=== PATIENT | female | born 1960 | race Caucasian/White ===

== ENCOUNTER 2023-10-26 08:07 | Inpatient (IN) | payer OTHER, SELFPAY ==
[2023-10-26] VITALS (31 sets, daily range): BP systolic 98–148; BP diastolic 67–97; PULSE 96–140; RESP 18–35; TEMP 36.5–37.5; O2SAT 87–98; BMI 29.5
--- NOTE | ~2023-10-26 | NM_ITS ---
EXAMINATION: NM samuel stress w perfusion DATE: 10/27/2023 11:42 INDICATION: Elevated troponins. Prior coronary artery bypass grafting. TECHNIQUE: Rest images were obtained following intravenous administration of 8.8 mCi Tc99m tetrofosmi n (Myoview). The patient was infused intravenously with Lexiscan (Regadenoson). Then, 38.8 mCi Tc99m tetrofosmin (Myoview) was administered intravenously, and stress images were obtained in both supine and prone positions. Data was reconstructed into short axis and horizontal and vertical long axis SPE CT images. Gated SPECT images were also obtained. COMPARISON: None. FINDINGS: There is a severe nonreversible perfusion defect involving the apical, the apical septal, a pical anterior, apical lateral and apical inferior, mid anterior and mid posterior segments consisten t with infarct. No nonreversible ischemia. There is normal left ventricular chamber size and ejectio n fraction. There is paradoxical motion at the left apex. Left ventricular ejection fraction measures 65%. IMPRESSION: 1. Large severe nonreversible infarct involving the apical, each of the periapical and the mid anteri or and mid inferior segments. No reversible ischemia. 2. Left ventricular ejection fraction measuring 65%. Reviewed, dictated and finalized at location A. IMPRESSION: 1. Large severe nonreversible infarct involving the apical, each of the periapi mahgoany and the mid anterior and mid inferior segments. No reversible ischemia. 2. Left ventricular ejection fraction measuring 65%.
--- NOTE | ~2023-10-26 | XR_ITS ---
EXAMINATION: XR chest 1V portable DATE: 10/26/2023 09:23 INDICATION: Shortness of breath. COPD/asthma. TECHNIQUE: frontal view of the chest was obtained. COMPARISON: None FINDINGS: Airspace opacity in the left lower lung zone which could represent atelectasis or pneumonia. Remainde r of the lungs are clear. No pulmonary edema, pleural effusion or pneumothorax. Heart size is normal. IMPRESSION: 1. Focal airspace opacity in the left lower lung zone which could represent atelectasis or pneumonia. Reviewed, dictated and finalized at location A. IMPRESSION: 1. Focal airspace opacity in the left lower lung zone which could represent ate lectasis or pneumonia.
--- NOTE | 2023-10-26 08:12 | ECG_ITS ---
SEE SCANNED COPY FOR CONFIRMED REPORT MTDD
--- NOTE | 2023-10-26 08:17 | ED_ITS ---
HPI - SOB/Dyspnea General Chief Complaint: Shortness of Breath/Dyspnea Stated Complaint: SOB Time Seen by Provider: 10/26/23 08:16 History of Present Illness HPI Narrative: Patient is a 63-year-old female with history of asthma, COPD here with shortness of breath and cough. She states that 2 nights ago she began feeling a bit more short of breath and it significantly worsened yesterday and overnight last night. She is unable to walk around her home yesterday due to her significant shortness of breath. She notes that weather changes typically flare her COPD. She denies any prior hospitalizations or intubations for her COPD in the past. She is not currently on steroids. She did attempt some breathing treatments at home without improvement of symptoms. She has had some increase in sputum production, is clear in color. She does not use any home oxygen. She denies any fever, chills, sick contacts. She denies any chest pain, denies any cardiac history. No history of PE or DVT. No leg swelling, no recent travel, no recent long car rides, no recent surgeries. Related Data Home Medications Medication Instructions Recorded Confirmed albuterol sulfate 90 mcg/actuation 2 puff inhalation TID 10/26/23 10/26/23 aerosol inhaler fluticasone propionate 115 2 puff inhalation BID 10/26/23 10/26/23 mcg-salmeterol 21 mcg/actuation HFA inhaler (Advair HFA) umeclidinium 62.5 mcg/actuation 1 inh inhalation DAILY 10/26/23 10/26/23 blister powder for inhalation (Incruse Ellipta) Allergies Allergy/AdvReac Type Severity Reaction Status Date / Time codeine AdvReac Itching Verified 10/26/23 08:15 Review of Systems Review of Systems: All systems reviewed & are unremarkable except as noted in HPI and below PMFSH Family History Family History Mother Cerebrovascular accident Sibling FH: CABG (coronary artery bypass surgery) Father Stented coronary artery Social History Social History Smoking packs per day: 1 Smoking cigarettes per day: 20.0 Years smoked: 45 Smoking pack-years: 45.00 Smoking status: Current every day smoker Tobacco type: cigarettes Alcohol intake: current Drinks per week: 3 Substance use: never Do You Feel Safe in your Home?: Yes Lack of Transportation: No Lack of Food: Never True Current Housing: I Have Housing Concerned About Future Housing: No Difficulty Paying Gas/Electric Bills: No Difficulty Paying for Meds: No Currently Unemployed: No Education: High School Diploma/GED Difficulty w/ Childcare or Family Care: No Spiritual care concerns: No Exam Narrative: GENERAL: Well-appearing, well-nourished HEAD: Normocephalic, atraumatic. EYES: PERRLA and EOMI. ENT: Nares clear. Mucous membranes moist. NECK: Supple. CHEST: decreased air movement bilaterally with faint expiratory wheeze appreciated. Tachypnea, mild respiratory distress. On 2 L nasal cannula. HEART: Regular rate and rhythm. Normal peripheral pulses. ABDOMEN: Soft, nontender, nondistended. EXTREMITIES: Normal range of motion. No edema. No calf tenderness. SKIN: Warm, dry, no rash. NEURO: No focal deficits. Alert and oriented x3. PSYCH: Normal mood and affect. Course Course Emergency Course: Chart review performed. Patient here with shortness of breath. History of COPD, asthma. Was initially 89% on RA, started on 2L NC. No prior visits in our system. Reportedly got solumedrol and a duoneb treatment en route by EMS. Patient seen evaluated, mild respiratory distress with new oxygen requirement. Suspect COPD exacerbation, typical this time of year with changes of seasons. Will do chest x-ray, lab work, cardiac workup in addition to breathing treatments and steroids. Discussed with patient that we will do a ambulatory trial pulse ox after treatment and workup and should she continue to require oxygen she will likely require hospitalization. Patient agreeable to workup and plan. Lab work and imaging reviewed, hemoglobin 18.4, suspect component of hemoconcentration from insensate losses due to tachypnea, electrolytes grossly normal, troponin elevated at 0.4, no prior for comparison, BNP 368. No prior cardiac history, no active chest pain. Chest x-ray shows focal airspace opacity in the left lower lung which could represent atelectasis or pneumonia. Will start on antibiotics. PT, PTT, D-dimer ordered. Aspirin ordered. Will reevaluate after breathing treatments. Patient feels much better after breathing treatments. Updated on her elevated troponin in the remainder of her results. Discussed plan for admission. Patient agreeable. D-dimer negative. Troponin up trending. Patient continues to advise that she has never experienced any chest pain. We will start on heparin. Discussed c ase with Veronika Kim from [facility], other team will be on consult. Spoke with hospitalist who accepts patient for admission. Vital Signs Vital signs: Vital Signs Temperature 97.9 F 10/26/23 08:08 Pulse Rate 139 H 10/26/23 08:08 Respiratory Rate 25 H 10/26/23 08:08 Blood Pressure 135/84 10/26/23 08:08 Pulse Oximetry 89 L 10/26/23 08:08 Oxygen Delivery Room Air 10/26/23 08:08 Temperature 97.6 F 10/27/23 04:34 Pulse Rate 77 10/27/23 06:00 Respiratory Rate 20 10/27/23 04:34 Blood Pressure 122/74 10/27/23 04:34 Pulse Oximetry 92 10/27/23 04:34 Oxygen Delivery Nasal Cannula 10/27/23 04:00 Oxygen Flow Rate 2 10/27/23 04:00 Fraction of Inspired Oxygen 28 10/27/23 01:48 MDM - SOB/Dyspnea Lab Data 10/27/23 03:51 10/27/23 04:02 Labs: Lab Results 10/26/23 10/26/23 10/26/23 Range/Units 08:20 08:21 08:21 WBC 6.9 (4.5-10.0) K/mm3 RBC 5.62 H (4.2-5.4) M/mm3 Hgb 18.4 H (12.0-15.0) g/dL Hct 57.9 H (37.0-47.0) % MCV 103.0 H (80-100) fl MCH 32.7 (26-34) pg MCHC 31.8 L (32-36) g/dl RDW 15.9 H (11.5-14.5) % Plt Count 214 (150-375) k/mm3 MPV 9.6 (7.4-10.4) fl Immature Gran % (Auto) 0.3 (0-0.5) % Neut % (Auto) 67.3 (45.5-73.1) % Lymph % (Auto) 18.8 (18.3-44.2) % Hendricks % (Auto) 7.1 (2.6-8.5) % Eos % (Auto) 5.5 H (0-4.4) % Baso % (Auto) 1.0 (0.2-1.2) % Lymph # (Auto) 1.30 (0.9-3.2) K/mm3 Hendricks # (Auto) 0.5 (0.1-0.6) K/mm3 Eos # (Auto) 0.4 H (0-0.3) K/mm3 Baso # (Auto) 0.1 (0.0-0.1) K/mm3 Abs Immat Gran (auto) 0.02 (0.00-0.031) K/mm3 Absolute Neuts (auto) 4.7 (1.3-6.7) K/mm3 Absolute Nucleated RBC 0.000 (0.0-0.012) K/mm3 Nucleated RBC % 0.0 (0.0-0.2) % PT 11.9 (11.1-14.7) Seconds INR 0.8 APTT 27.5 (22.3-36.8) Seconds D-Dimer 0.38 (<0.48) ug/mL Sodium Cancelled 138 Potassium Cancelled Chloride Carbon Dioxide Anion Gap BUN Creatinine Estim Creat Clear Calc Estimated GFR Glucose Lactic Acid (0.7-2.0) mmol/L Calcium Total Bilirubin AST ALT Alkaline Phosphatase Troponin I (0.000-0.034) ng/mL NT-Pro-B Natriuret Pep (19.9-100) pg/mL Total Protein Albumin Influenza A (RT-PCR) (Negative) Influenza B (RT-PCR) (Negative) RSV (RT-PCR) (Negative) SARS-CoV-2 RNA (RT-PCR) (Negative) 10/26/23 10/26/23 10/26/23 Range/Units 08:21 08:21 08:21 WBC (4.5-10.0) K/mm3 RBC (4.2-5.4) M/mm3 Hgb (12.0-15.0) g/dL Hct (37.0-47.0) % MCV (80-100) fl MCH (26-34) pg MCHC (32-36) g/dl RDW (11.5-14.5) % Plt Count (150-375) k/mm3 MPV (7.4-10.4) fl Immature Gran % (Auto) (0-0.5) % Neut % (Auto) (45.5-73.1) % Lymph % (Auto) (18.3-44.2) % Hendricks % (Auto) (2.6-8.5) % Eos % (Auto) (0-4.4) % Baso % (Auto) (0.2-1.2) % Lymph # (Auto) (0.9-3.2) K/mm3 Hendricks # (Auto) (0.1-0.6) K/mm3 Eos # (Auto) (0-0.3) K/mm3 Baso # (Auto) (0.0-0.1) K/mm3 Abs Immat Gran (auto) (0.00-0.031) K/mm3 Absolute Neuts (auto) (1.3-6.7) K/mm3 Absolute Nucleated RBC (0.0-0.012) K/mm3 Nucleated RBC % (0.0-0.2) % PT (11.1-14.7) Seconds INR APTT (22.3-36.8) Seconds D-Dimer (<0.48) ug/mL Sodium Potassium 3.4 Chloride Cancelled 104 Carbon Dioxide Cancelled 26 Anion Gap Cancelled BUN Creatinine Estim Creat Clear Calc Estimated GFR Glucose Lactic Acid (0.7-2.0) mmol/L Calcium Total Bilirubin AST ALT Alkaline Phosphatase Troponin I (0.000-0.034) ng/mL NT-Pro-B Natriuret Pep (19.9-100) pg/mL Total Protein Albumin Influenza A (RT-PCR) (Negative) Influenza B (RT-PCR) (Negative) RSV (RT-PCR) (Negative) SARS-CoV-2 RNA (RT-PCR) (Negative) 10/26/23 10/26/23 10/26/23 Range/Units 08:21 08:21 08:21 WBC (4.5-10.0) K/mm3 RBC (4.2-5.4) M/mm3 Hgb (12.0-15.0) g/dL Hct (37.0-47.0) % MCV (80-100) fl MCH (26-34) pg MCHC (32-36) g/dl RDW (11.5-14.5) % Plt Count (150-375) k/mm3 MPV (7.4-10.4) fl Immature Gran % (Auto) (0-0.5) % Neut % (Auto) (45.5-73.1) % Lymph % (Auto) (18.3-44.2) % Hendricks % (Auto) (2.6-8.5) % Eos % (Auto) (0-4.4) % Baso % (Auto) (0.2-1.2) % Lymph # (Auto) (0.9-3.2) K/mm3 Hendricks # (Auto) (0.1-0.6) K/mm3 Eos # (Auto) (0-0.3) K/mm3 Baso # (Auto) (0.0-0.1) K/mm3 Abs Immat Gran (auto) (0.00-0.031) K/mm3 Absolute Neuts (auto) (1.3-6.7) K/mm3 Absolute Nucleated RBC (0.0-0.012) K/mm3 Nucleated RBC % (0.0-0.2) % PT (11.1-14.7) Seconds INR APTT (22.3-36.8) Seconds D-Dimer (<0.48) ug/mL Sodium Potassium Chloride Carbon Dioxide Anion Gap 8 BUN Cancelled 11 Creatinine Cancelled 0.70 Estim Creat Clear Calc Cancelled Estimated GFR Glucose Lactic Acid (0.7-2.0) mmol/L Calcium Total Bilirubin AST ALT Alkaline Phosphatase Troponin I (0.000-0.034) ng/mL NT-Pro-B Natriuret Pep (19.9-100) pg/mL Total Protein Albumin Influenza A (RT-PCR) (Negative) Influenza B (RT-PCR) (Negative) RSV (RT-PCR) (Negative) SARS-CoV-2 RNA (RT-PCR) (Negative) 10/26/23 10/26/23 10/26/23 Range/Units 08:21 08:21 08:21 WBC (4.5-10.0) K/mm3 RBC (4.2-5.4) M/mm3 Hgb (12.0-15.0) g/dL Hct (37.0-47.0) % MCV (80-100) fl MCH (26-34) pg MCHC (32-36) g/dl RDW (11.5-14.5) % Plt Count (150-375) k/mm3 MPV (7.4-10.4) fl Immature Gran % (Auto) (0-0.5) % Neut % (Auto) (45.5-73.1) % Lymph % (Auto) (18.3-44.2) % Hendricks % (Auto) (2.6-8.5) % Eos % (Auto) (0-4.4) % Baso % (Auto) (0.2-1.2) % Lymph # (Auto) (0.9-3.2) K/mm3 Hendricks # (Auto) (0.1-0.6) K/mm3 Eos # (Auto) (0-0.3) K/mm3 Baso # (Auto) (0.0-0.1) K/mm3 Abs Immat Gran (auto) (0.00-0.031) K/mm3 Absolute Neuts (auto) (1.3-6.7) K/mm3 Absolute Nucleated RBC (0.0-0.012) K/mm3 Nucleated RBC % (0.0-0.2) % PT (11.1-14.7) Seconds INR APTT (22.3-36.8) Seconds D-Dimer (<0.48) ug/mL Sodium Potassium Chloride Carbon Dioxide Anion Gap BUN Creatinine Estim Creat Clear Calc 75 Estimated GFR Cancelled > 60 Glucose Cancelled 145 H Lactic Acid (0.7-2.0) mmol/L Calcium Cancelled Total Bilirubin AST ALT Alkaline Phosphatase Troponin I (0.000-0.034) ng/mL NT-Pro-B Natriuret Pep (19.9-100) pg/mL Total Protein Albumin Influenza A (RT-PCR) (Negative) Influenza B (RT-PCR) (Negative) RSV (RT-PCR) (Negative) SARS-CoV-2 RNA (RT-PCR) (Negative) 10/26/23 10/26/23 10/26/23 Range/Units 08:21 08:21 08:21 WBC (4.5-10.0) K/mm3 RBC (4.2-5.4) M/mm3 Hgb (12.0-15.0) g/dL Hct (37.0-47.0) % MCV (80-100) fl MCH (26-34) pg MCHC (32-36) g/dl RDW (11.5-14.5) % Plt Count (150-375) k/mm3 MPV (7.4-10.4) fl Immature Gran % (Auto) (0-0.5) % Neut % (Auto) (45.5-73.1) % Lymph % (Auto) (18.3-44.2) % Hendricks % (Auto) (2.6-8.5) % Eos % (Auto) (0-4.4) % Baso % (Auto) (0.2-1.2) % Lymph # (Auto) (0.9-3.2) K/mm3 Hendricks # (Auto) (0.1-0.6) K/mm3 Eos # (Auto) (0-0.3) K/mm3 Baso # (Auto) (0.0-0.1) K/mm3 Abs Immat Gran (auto) (0.00-0.031) K/mm3 Absolute Neuts (auto) (1.3-6.7) K/mm3 Absolute Nucleated RBC (0.0-0.012) K/mm3 Nucleated RBC % (0.0-0.2) % PT (11.1-14.7) Seconds INR APTT (22.3-36.8) Seconds D-Dimer (<0.48) ug/mL Sodium Potassium Chloride Carbon Dioxide Anion Gap BUN Creatinine Estim Creat Clear Calc Estimated GFR Glucose Lactic Acid (0.7-2.0) mmol/L Calcium 9.8 Total Bilirubin Cancelled 1.1 AST Cancelled 23 ALT Cancelled Alkaline Phosphatase Troponin I (0.000-0.034) ng/mL NT-Pro-B Natriuret Pep (19.9-100) pg/mL Total Protein Albumin Influenza A (RT-PCR) (Negative) Influenza B (RT-PCR) (Negative) RSV (RT-PCR) (Negative) SARS-CoV-2 RNA (RT-PCR) (Negative) 10/26/23 10/26/23 10/26/23 Range/Units 08:21 08:21 08:21 WBC (4.5-10.0) K/mm3 RBC (4.2-5.4) M/mm3 Hgb (12.0-15.0) g/dL Hct (37.0-47.0) % MCV (80-100) fl MCH (26-34) pg MCHC (32-36) g/dl RDW (11.5-14.5) % Plt Count (150-375) k/mm3 MPV (7.4-10.4) fl Immature Gran % (Auto) (0-0.5) % Neut % (Auto) (45.5-73.1) % Lymph % (Auto) (18.3-44.2) % Hendricks % (Auto) (2.6-8.5) % Eos % (Auto) (0-4.4) % Baso % (Auto) (0.2-1.2) % Lymph # (Auto) (0.9-3.2) K/mm3 Hendricks # (Auto) (0.1-0.6) K/mm3 Eos # (Auto) (0-0.3) K/mm3 Baso # (Auto) (0.0-0.1) K/mm3 Abs Immat Gran (auto) (0.00-0.031) K/mm3 Absolute Neuts (auto) (1.3-6.7) K/mm3 Absolute Nucleated RBC (0.0-0.012) K/mm3 Nucleated RBC % (0.0-0.2) % PT (11.1-14.7) Seconds INR APTT (22.3-36.8) Seconds D-Dimer (<0.48) ug/mL Sodium Potassium Chloride Carbon Dioxide Anion Gap BUN Creatinine Estim Creat Clear Calc Estimated GFR Glucose Lactic Acid (0.7-2.0) mmol/L Calcium Total Bilirubin AST ALT 14 Alkaline Phosphatase Cancelled 81 Troponin I 0.400 H* (0.000-0.034) ng/mL NT-Pro-B Natriuret Pep 368 H (19.9-100) pg/mL Total Protein Cancelled 7.0 Albumin Cancelled Influenza A (RT-PCR) (Negative) Influenza B (RT-PCR) (Negative) RSV (RT-PCR) (Negative) SARS-CoV-2 RNA (RT-PCR) (Negative) 10/26/23 10/26/2324 Range/Units 08:21 10:43 11:11 WBC (4.5-10.0) K/mm3 RBC (4.2-5.4) M/mm3 Hgb (12.0-15.0) g/dL Hct (37.0-47.0) % MCV (80-100) fl MCH (26-34) pg MCHC (32-36) g/dl RDW (11.5-14.5) % Plt Count (150-375) k/mm3 MPV (7.4-10.4) fl Immature Gran % (Auto) (0-0.5) % Neut % (Auto) (45.5-73.1) % Lymph % (Auto) (18.3-44.2) % Hendricks % (Auto) (2.6-8.5) % Eos % (Auto) (0-4.4) % Baso % (Auto) (0.2-1.2) % Lymph # (Auto) (0.9-3.2) K/mm3 Hendricks # (Auto) (0.1-0.6) K/mm3 Eos # (Auto) (0-0.3) K/mm3 Baso # (Auto) (0.0-0.1) K/mm3 Abs Immat Gran (auto) (0.00-0.031) K/mm3 Absolute Neuts (auto) (1.3-6.7) K/mm3 Absolute Nucleated RBC (0.0-0.012) K/mm3 Nucleated RBC % (0.0-0.2) % PT (11.1-14.7) Seconds INR APTT (22.3-36.8) Seconds D-Dimer (<0.48) ug/mL Sodium Potassium Chloride Carbon Dioxide Anion Gap BUN Creatinine Estim Creat Clear Calc Estimated GFR Glucose Lactic Acid 1.3 (0.7-2.0) mmol/L Calcium Total Bilirubin AST ALT Alkaline Phosphatase Troponin I 1.480 H* D (0.000-0.034) ng/mL NT-Pro-B Natriuret Pep (19.9-100) pg/mL Total Protein Albumin 4.7 Influenza A (RT-PCR) Negative (Negative) Influenza B (RT-PCR) Negative (Negative) RSV (RT-PCR) Negative (Negative) SARS-CoV-2 RNA (RT-PCR) Negative (Negative) Imaging Data Radiologist's impression: ITS Impressions Chest X-Ray 10/26/23 09:32 IMPRESSION: 1. Focal airspace opacity in the left lower lung zone which could represent atelectasis or pneumonia. ECG Data EKG #1: Attestation: I personally reviewed and interpreted this ECG as follows: ECG completion date: 10/26/23 ECG completion time: 08:13 Interpretation: Rate is 129 Rhythm is sinus tachycardia QRS is 80 QTc is 383 Final Interpretation: sinus tachycardia, no ST segment elevations or depressions that meet STEMI activation criteria. No prior for comparison. Critical Care Time Critical Care Time Critical Care Time: Yes Total Critical Care Time: 30 Discharge Plan Discharge Clinical Impression: Community acquired pneumonia, Acute exacerbation of chronic obstructive pulmonary disease, Elevated troponin, Non-ST elevation OR (NSTEMI), Acute hypoxic respiratory failure Patient Disposition: Still a Patient Condition: Stable
[2023-10-26] MEDS: IPRATROPIUM BR 0.02% INH SOLN 0.5 MG/2.5 ML VIAL 1.5 MG INHALATION (08:39)
[2023-10-26 08:40] LABS: Basophils Absolute Auto 0.1 K/mm3 (0.0-0.1); Eosinophils Absolute Auto 0.4 K/mm3 (0-0.3); Eosinophils Percent Auto 5.5 % (0-4.4); Hematocrit 57.9 % (37.0-47.0); Hemoglobin 18.4 g/dL (12.0-15.0); Immature Granulocyte Absolute 0.02 K/mm3 (0.00-0.031); Immature Granulocyte Percent A 0.3 % (0-0.5); Lymphocytes Percent Auto 18.8 % (18.3-44.2); Mean Corpuscular HGB Conc 31.8 g/dl (32-36); Mean Corpuscular Hemoglobin 32.7 pg (26-34); Mean Platelet Volume 9.6 fl (7.4-10.4); Monocytes Absolute Auto 0.5 K/mm3 (0.1-0.6); Monocytes Percent Auto 7.1 % (2.6-8.5); Neutrophils Absolute Auto 4.7 K/mm3 (1.3-6.7); Neutrophils Percent Auto 67.3 % (45.5-73.1); Platelet Count Result 214 k/mm3 (150-375); Red Blood Count 5.62 M/mm3 (4.2-5.4); Red Cell Distribution Width 15.9 % (11.5-14.5); White Blood Count 6.9 K/mm3 (4.5-10.0)
[2023-10-26] MEDS: ALBUTEROL SULFATE NEB 2.5 MG/3 ML INH 15 MG INHALATION (08:40)
[2023-10-26 08:51] LABS: Alanine Aminotransferase 14 U/L (6-35); Albumin Level 4.7 g/dL (3.5-5.1); Alkaline Phosphatase 81 U/L (38-126); Anion Gap 8 mmol/L (4-12); Aspartate Amino Transferase 23 U/L (14-36); Bilirubin,Total 1.1 mg/dL (0.2-1.3); Blood Urea Nitrogen 11 mg/dL (7-17); Calcium 9.8 mg/dL (8.4-10.2); Carbon Dioxide 26 mmol/L (22-30); Chloride 104 mmol/L (98-107); Estimated CRCL calculation 75 ml/min; Estimated Glomerular Filt Rate > 60; Glucose 145 mg/dL (65-110); Potassium 3.4 mmol/L (3.4-5.0); Sodium 138 mmol/L (137-145)
[2023-10-26 09:07] LABS: NT Pro B Type Natriuretic Pept 368 pg/mL (19.9-100)
[2023-10-26 09:12] LABS: Influenza A QL RT-PCR Negative (Negative); Influenza B QL RT-PCR Negative (Negative); RSV RNA, RT-PCR Negative (Negative); SARS-CoV-2 RNA PCR Negative (Negative)
[2023-10-26] MEDS: ASPIRIN 81 MG CHEWABLE TABLET 324 MG PO (09:48)
[2023-10-26 10:40] LABS: D Dimer 0.38 ug/mL (<0.48)
[2023-10-26] MEDS: cefTRIAXone 2 GM/NS 100 ML 2 GM/100 ML BAG IVPB (10:49)
[2023-10-26 11:01] LABS: Lactic Acid Reflex 1.3 mmol/L (0.7-2.0)
[2023-10-26 11:04] LABS: INR 0.8; Partial Thromboplastin Time 27.5 Seconds (22.3-36.8); Prothrombin Time 11.9 Seconds (11.1-14.7)
[2023-10-26] MEDS: SODIUM CHLORIDE 0.9% IV 1,000 ML 999 ML IV CONT (11:20)
[2023-10-26] MEDS: DOXYCYCLINE 100 MG/NS 100 ML 100 MG/100 ML BAG IVPB ×2 (11:20→21:15)
--- NOTE | 2023-10-26 11:30 | ECG_ITS ---
SEE SCANNED COPY FOR CONFIRMED REPORT MTDD
[2023-10-26] MEDS: HEPARIN SOD/D5W 100 UNITS/ML 25,000 UNITS/250 ML BAG 8 UNITS IV CONT (12:39)
[2023-10-26] MEDS: HEPARIN SODIUM 5,000 UNITS/ML VIAL 4000 UNITS IV PUSH ×2 (12:41→21:14)
[2023-10-26] MEDS: LORazepam INJ (*CRX) 2 MG/ML VIAL 0.5 MG IV PUSH (13:19)
--- NOTE | 2023-10-26 13:36 | ADMGEN ---
This patient, Minnie Anguiano, was admitted to IMU Room 212-01. Patient/family oriented to hospital policies and general routines including ID bracelet, bed and alarms, visiting hours, pain management, procedures, bathroom and other care routines, personal items, smoking policy, room service/diet, and visiting hours. Information on how to activate the Rapid Response Team has been discussed. Patient/Family are encouraged to report perceived risks to care and to ask questions if they do not understand what they are told or what they should do.
--- NOTE | 2023-10-26 14:37 | P.HP_ITS ---
H&P: HPI History of Present Illness Date/Time: 10/26/23 14:37 Chief Complaint: SOB Narrative: Patient is a 63-year-old female with PMH of asthma and COPD admitted for shortness of breath x2-3 days. She was unable to walk around her home yesterday due to her significant shortness of breath and tried her nebulizer treatments at home with little improvement. She has had some increase in sputum production, is clear in color. She does not use any home oxygen at baseline. She denies any fever, chills, or other viral symptoms. She denies any chest pain, denies any cardiac or stroke history. No history of PE or DVT. She denies any other medical history, denies history of DM2. She does not take any medications at home other than her inhalers. She is not currently established with a counter intelligence agent. On exam, she is feeling much more comfortable after receiving steroids and oxygen therapy. She is currently on 2 L NC. Cardiology has been consulted regarding her elevated troponins, although suspect there could be an aspect of ischemic demand. ABG to be drawn. Respiratory panel negative, labs otherwise essentially normal. Will continue IV AB for PNA, IV steroids and duonebs for COPD exacerbation. Review of Systems Review of Systems: All systems reviewed & are unremarkable except as noted in HPI and below PMFSH Family History Family History Mother Cerebrovascular accident Sibling FH: CABG (coronary artery bypass surgery) Father Stented coronary artery Social History Social History Smoking packs per day: 1 Smoking cigarettes per day: 20.0 Years smoked: 45 Smoking pack-years: 45.00 Smoking status: Current every day smoker Tobacco type: cigarettes Alcohol intake: current Drinks per week: 3 Substance use: never Do You Feel Safe in your Home?: Yes Lack of Transportation: No Lack of Food: Never True Current Housing: I Have Housing Concerned About Future Housing: No Difficulty Paying Gas/Electric Bills: No Difficulty Paying for Meds: No Currently Unemployed: No Education: High School Diploma/GED Difficulty w/ Childcare or Family Care: No Spiritual care concerns: No Meds Home Medications and Allergies Home Medications Medication Instructions Recorded Confirmed Type albuterol sulfate 90 mcg/actuation 2 puff inhalation TID 10/26/23 10/26/23 History aerosol inhaler fluticasone propionate 115 2 puff inhalation BID 10/26/23 10/26/23 History mcg-salmeterol 21 mcg/actuation HFA inhaler (Advair HFA) umeclidinium 62.5 mcg/actuation 1 inh inhalation DAILY 10/26/23 10/26/23 History blister powder for inhalation (Incruse Ellipta) Allergies Allergy/AdvReac Type Severity Reaction Status Date / Time codeine AdvReac Itching Verified 10/26/23 08:15 Vital Signs Vital Signs - 24 hr 10/26/23 08:08 10/26/23 08:11 10/26/23 08:12 Temperature 97.9 F Pulse Rate 139 H Respiratory Rate 25 H Blood Pressure 135/84 Pulse Oximetry 89 L 91 95 Oxygen Delivery Room Air Nasal Cannula Nasal Cannula Oxygen Flow Rate 2 2 10/26/23 08:44 10/26/23 09:03 10/26/23 09:21 Temperature Pulse Rate 130 H 119 H 131 H Respiratory Rate 22 H 21 H 20 Blood Pressure 125/97 H 108/81 Pulse Oximetry 98 98 Oxygen Delivery Oxygen Flow Rate 10/26/23 09:31 10/26/23 10:15 10/26/23 10:15 Temperature Pulse Rate 132 H 138 H 129 H Respiratory Rate 29 H 28 H 21 H Blood Pressure 108/72 Pulse Oximetry 97 97 Oxygen Delivery Oxygen Flow Rate 10/26/23 10:30 10/26/23 12:45 10/26/23 11:31 Temperature Pulse Rate 137 H 107 H 130 H Respiratory Rate 21 H 35 H Blood Pressure 101/70 98/67 L Pulse Oximetry 93 92 Oxygen Delivery Oxygen Flow Rate 10/26/23 12:01 10/26/23 12:31 10/26/23 13:01 Temperature Pulse Rate 138 H 134 H 135 H Respiratory Rate 20 25 H 24 H Blood Pressure 105/75 110/83 116/80 Pulse Oximetry 93 95 95 Oxygen Delivery Oxygen Flow Rate 10/26/23 14:00 10/26/23 13:30 Temperature 97.9 F Pulse Rate 102 H 109 H Respiratory Rate 18 Blood Pressure 136/82 Pulse Oximetry 95 Oxygen Delivery Oxygen Flow Rate Exam Narrative: GENERAL: Well-appearing, well-nourished, in no acute distress HEAD: Normocephalic, atraumatic. EYES: PERRLA and EOMI. ENT: Mucous membranes moist. NECK: Supple. CHEST: Decreased air movement bilaterally. HEART: Regular rhythm, tachycardic. Normal peripheral pulses. ABDOMEN: Soft, nontender, nondistended. EXTREMITIES: Normal range of motion. No edema. No calf tenderness. SKIN: Warm, dry, no rash. NEURO: No focal deficits. Alert and oriented x3. PSYCH: Normal mood and affect. H&P: Results Labs Labs: Short CBC 10/26/23 Range/Units 08:21 WBC 6.9 (4.5-10.0) K/mm3 Hgb 18.4 H (12.0-15.0) g/dL Hct 57.9 H (37.0-47.0) % Plt Count 214 (150-375) k/mm3 BMP 10/26/23 10/26/23 10/26/23 08:21 08:21 08:21 Sodium Cancelled 138 Potassium Cancelled 3.4 Chloride Cancelled Carbon Dioxide BUN Creatinine Glucose Calcium 10/26/23 10/26/23 10/26/23 08:21 08:21 08:21 Sodium Potassium Chloride 104 Carbon Dioxide Cancelled 26 BUN Cancelled 11 Creatinine Cancelled Glucose Calcium 10/26/23 10/26/23 10/26/23 08:21 08:21 08:21 Sodium Potassium Chloride Carbon Dioxide BUN Creatinine 0.70 Glucose Cancelled 145 H Calcium Cancelled 9.8 Cardiac Enzymes 10/26/23 10/26/23 Range/Units 08:21 11:11 Troponin I 0.400 H* 1.480 H* D (0.000-0.034) ng/mL Liver Function 10/26/23 10/26/23 10/26/23 Range/Units 08:21 08:21 08:21 Total Bilirubin Cancelled 1.1 AST Cancelled 23 ALT Cancelled Alkaline Phosphatase Albumin 10/26/23 10/26/23 10/26/23 Range/Units 08:21 08:21 08:21 Total Bilirubin AST ALT 14 Alkaline Phosphatase Cancelled 81 Albumin Cancelled 4.7 Assessment and Plan Assessment and plan (1) Community acquired pneumonia: Qualifiers: Laterality: left Lung location: lower lobe of lung Qualified Code(s): J18.9 - Pneumonia, unspecified organism Code(s): J18.9 - Pneumonia, unspecified organism Status: Acute Assessment and Plan: * CXR showed focal airspace opacity in the left lower lung zone which could represent atelectasis or pneumonia. * given COPD dx, will treat with Rocephin and doxycycline as her QTC is elongated * supplemental O2 - work to wean * Duonebs * IV Solumedrol Q6 (2) Acute exacerbation of chronic obstructive pulmonary disease: Code(s): J44.1 - Chronic obstructive pulmonary disease with (acute) exacerbation Status: Acute Assessment and Plan: * continue at home inhalers * supplemental O2 - work to wean * Duonebs * IV Solumedrol Q6 * ABG ordered (3) Elevated troponin: Code(s): R79.89 - Other specified abnormal findings of blood chemistry Status: Acute Assessment and Plan: * Trops 0.4 -> 1.48 -> 1.86 * Cardiology consulted * could be secondary to ischemic demand * continue heparin until further evaluation * PT/PTT/INR and D-dimer WNL Quality VTE Prophylaxis VTE prophylaxis: pharmacologic ordered
[2023-10-26 15:23] LABS: Alveolar/Arterial O2 Gradient 93.4 mmHg; Base Excess ABG -1.4 mEq/l (+/-2.0); Device NASAL CANNULA; Fractional Inspired Oxygen 28 %; HCO3 ABG 22.4 mEq/l (22.0-26.0); Modified Allen's Test Pass; Oxygen Content ABG 24.3 %vol (16.0-22.0); Oxygen Saturation ABG 93.1 % (95.0-100.0); Oxyhemoglobin 91.9 % THb (90.0-100.0); PCO2 ABG 35.5 mmHg (35.0-45.0); PO2 ABG 64.4 mmHg (80.0-100.0); Site Drawn RIGHT RADIAL; Total Hemoglobin 18.9 g/dL (12.0-18.0); pH ABG 7.417 (7.350-7.450)
--- NOTE | 2023-10-26 15:38 | P.CONCA_ITS ---
Assessment and Plan Assessment and plan (1) Elevated troponin: Code(s): R79.89 - Other specified abnormal findings of blood chemistry Status: Acute Plan 63-year-old lady with obvious chronic COPD both by history and by physical exam. She had a COPD exacerbation this morning that was treated in the emergency room. Because of her age and risk factors troponin levels were sampled and there has been a moderate rise as detailed above. Her electrocardiogram shows sinus tachycardia low QRS voltage compatible with her COPD. There is some lateral Q-waves noted in 1 aVL but no significant elevation or current of injury. At this point I would recommend a Lexiscan nuclear stress test for screening for ischemic heart disease. The test was explained to the patient in detail. In addition to heparin I will order low-dose aspirin, metoprolol and statin therapy treating her for a potential ACS with guideline directed medical therapy. Further recommendations will be pending findings of her stress test tomorrow. I indicated to the patient that we would need to discuss angiography of a significant ischemic burden is identified Parish Downing MD [facility] History of Present Illness History of Present Illness Consult date/time: 10/26/23 15:38 Reason For Visit: COPD Exacerbation/ LLL Pneumonia/NSTEMI Narrative: this is a 63-year-old woman who I am seeing at the request of the hospitalist because of elevated troponin levels that were seen earlier today at emergency room evaluation. This is a lady who reports no prior knowledge of any cardiac problems who came to the emergency room this morning because of shortness of breath. She says she has a long well established history of COPD due to an ongoing history of cigarette smoking for many decades. She felt that she was having difficulty with her breathing as well as some mild wheezing she tried using her inhalers at home without significant relief and so she came to the emergency room. She does not report any symptoms of chest pain pressure or heaviness. She did feel any symptoms that felt unusual for her or apart from a typical COPD exacerbation that she is used to having. She had a cough that was largely nonproductive no fever no chills. In the emergency room she was treated as a COPD exacerbation and she has improved symptomatic Megan saying that she feels notably better than she did this morning upon arrival here. Troponin levels were sampled in the emergency room and they were modestly elevated and have risen to 0 4th sample of 1.8. She has 3 electrocardiograms in the chart that show sinus tachycardia low QRS voltage and Q-waves in lead 1 aVL but there is no significant ST segment elevation or depression there is also poor R-wave progression. No old EKGs are available for comparison all 3 tracings from earlier today are identical in appearance. she is feeling relatively well at this time she has speaking to the kitchen to try to get some food ordered up to her room she has a heparin drip running. In her usual state of health she states she is a normally functional person despite her chronic lung disease she is able to ambulate and carry on activities of daily living she does not exercise regularly she does not need oxygen supplementation and has never been intubated in response to a COPD exacerbation Review of Systems Constitutional: Constitutional: Reports no additional constitutional complaints Eyes: Eyes: Reports no additional eye complaints ENT: Reports system reviewed and no additional complaints, except as documented Cardiovascular: Cardiovascular: Reports no additional cardiovascular complaints Respiratory: Respiratory: Reports as per HPI and Reports dyspnea Gastrointestinal: Gastrointestinal: Reports no additional gastrointestinal complaints Musculoskeletal: Musculoskeletal: Reports no additional musculoskeletal complaints Integumentary/Breasts: Skin/Breast: Reports system reviewed and no additional complaints, except as docu Neurologic: Reports system reviewed and no additional complaints, except as documented Endocrine: Endocrine: Reports no additional endocrine complaints Hematologic/Lymphatic: Hematologic/Lymphatic: Reports no additional hematologic/lymphatic complaints Allergic/Immunologic: Allergic/Immunologic: Reports no additional allergic/immunologic complaints [facility] Family History Family History Mother Cerebrovascular accident Sibling FH: CABG (coronary artery bypass surgery) Father Stented coronary artery Social History Social History Smoking packs per day: 1 Smoking cigarettes per day: 20.0 Years smoked: 45 Smoking pack-years: 45.00 Smoking status: Current every day smoker Tobacco type: cigarettes Alcohol intake: current Drinks per week: 3 Substance use: never Do You Feel Safe in your Home?: Yes Lack of Transportation: No Lack of Food: Never True Current Housing: I Have Housing Concerned About Future Housing: No Difficulty Paying Gas/Electric Bills: No Difficulty Paying for Meds: No Currently Unemployed: No Education: High School Diploma/GED Difficulty w/ Childcare or Family Care: No Spiritual care concerns: No Meds Home Medications and Allergies Home Medications Medication Instructions Recorded Confirmed Type albuterol sulfate 90 mcg/actuation 2 puff inhalation TID 10/26/23 10/26/23 History aerosol inhaler fluticasone propionate 115 2 puff inhalation BID 10/26/23 10/26/23 History mcg-salmeterol 21 mcg/actuation HFA inhaler (Advair HFA) umeclidinium 62.5 mcg/actuation 1 inh inhalation DAILY 10/26/23 10/26/23 History blister powder for inhalation (Incruse Ellipta) Allergies Allergy/AdvReac Type Severity Reaction Status Date / Time codeine AdvReac Itching Verified 10/26/23 08:15 Vital Signs Vital Signs - 24 hr 10/26/23 08:08 10/26/23 08:11 10/26/23 08:12 Temperature 36.6 C Pulse Rate 139 H Respiratory Rate 25 H Blood Pressure 135/84 Pulse Oximetry 89 L 91 95 Oxygen Delivery Room Air Nasal Cannula Nasal Cannula Oxygen Flow Rate 2 2 Fraction of Inspired Oxygen 10/26/23 08:44 10/26/23 09:03 10/26/23 09:21 Temperature Pulse Rate 130 H 119 H 131 H Respiratory Rate 22 H 21 H 20 Blood Pressure 125/97 H 108/81 Pulse Oximetry 98 98 Oxygen Delivery Oxygen Flow Rate Fraction of Inspired Oxygen 10/26/23 09:31 10/26/23 10:15 10/26/23 10:15 Temperature Pulse Rate 132 H 138 H 129 H Respiratory Rate 29 H 28 H 21 H Blood Pressure 108/72 Pulse Oximetry 97 97 Oxygen Delivery Oxygen Flow Rate Fraction of Inspired Oxygen 10/26/23 10:30 10/26/23 12:45 10/26/23 11:31 Temperature Pulse Rate 137 H 107 H 130 H Respiratory Rate 21 H 35 H Blood Pressure 101/70 98/67 L Pulse Oximetry 93 92 Oxygen Delivery Oxygen Flow Rate Fraction of Inspired Oxygen 10/26/23 12:01 10/26/23 12:31 10/26/23 13:01 Temperature Pulse Rate 138 H 134 H 135 H Respiratory Rate 20 25 H 24 H Blood Pressure 105/75 110/83 116/80 Pulse Oximetry 93 95 95 Oxygen Delivery Oxygen Flow Rate Fraction of Inspired Oxygen 10/26/23 14:00 10/26/23 13:30 10/26/23 15:14 Temperature 36.6 C Pulse Rate 102 H 109 H Respiratory Rate 18 Blood Pressure 136/82 Pulse Oximetry 95 95 Oxygen Delivery Nasal Cannula Oxygen Flow Rate 2 Fraction of Inspired Oxygen 28 Exam Const: General: comfortable and no acute distress Other: pleasant barrel-chested 63-year-old lady essentially comfortable at this time reporting no ongoing symptoms HENMT: Mouth: Yes moist mucous membranes Eyes: Sclera: sclerae normal Neck: Neck: supple Other: carotid upstrokes are intact bilaterally without significant bruits Resp: Other: patient has somewhat prolonged expiratory phase no active wheezing breath sounds are markedly diminished in both lung veloz Cardio: Rate: regular rate and tachycardic Rhythm: regular rhythm Other: no audible murmur or gallop GI: GI Palp: Yes Soft to palpation Auscultation: normal bowel sounds Skin: General skin exam: normal color Neuro: Other: alert and oriented x3 Extrem: Other: no edema adequate perfusion a pulses are difficult to feel below the femoral triangles in the lower extremity Results Labs and Meds 10/26/23 08:21 10/26/23 08:21 Lab results: Cardiac Enzymes 10/26/23 10/26/23 10/26/23 Range/Units 08:21 08:21 11:11 AST Cancelled 23 Troponin I 0.400 H* 1.480 H* D (0.000-0.034) ng/mL 10/26/23 Range/Units 14:30 AST Troponin I 1.860 H* D (0.000-0.034) ng/mL Coagulation 10/26/23 Range/Units 08:20 PT 11.9 (11.1-14.7) Seconds APTT 27.5 (22.3-36.8) Seconds CBC 10/26/23 Range/Units 08:21 WBC 6.9 (4.5-10.0) K/mm3 RBC 5.62 H (4.2-5.4) M/mm3 Hgb 18.4 H (12.0-15.0) g/dL Hct 57.9 H (37.0-47.0) % Plt Count 214 (150-375) k/mm3 Lymph # (Auto) 1.30 (0.9-3.2) K/mm3 Dooly # (Auto) 0.5 (0.1-0.6) K/mm3 Eos # (Auto) 0.4 H (0-0.3) K/mm3 Baso # (Auto) 0.1 (0.0-0.1) K/mm3 Comprehensive Metabolic Panel 10/26/23 10/26/23 10/26/23 Range/Units 08:21 08:21 08:21 Sodium Cancelled 138 Potassium Cancelled 3.4 Chloride Cancelled Carbon Dioxide BUN Creatinine Glucose Calcium AST ALT Alkaline Phosphatase Total Protein Albumin 10/26/23 10/26/23 10/26/23 Range/Units 08:21 08:21 08:21 Sodium Potassium Chloride 104 Carbon Dioxide Cancelled 26 BUN Cancelled 11 Creatinine Cancelled Glucose Calcium AST ALT Alkaline Phosphatase Total Protein Albumin 10/26/23 10/26/23 10/26/23 Range/Units 08:21 08:21 08:21 Sodium Potassium Chloride Carbon Dioxide BUN Creatinine 0.70 Glucose Cancelled 145 H Calcium Cancelled 9.8 AST Cancelled ALT Alkaline Phosphatase Total Protein Albumin 10/26/23 10/26/23 10/26/23 Range/Units 08:21 08:21 08:21 Sodium Potassium Chloride Carbon Dioxide BUN Creatinine Glucose Calcium AST 23 ALT Cancelled 14 Alkaline Phosphatase Cancelled 81 Total Protein Cancelled Albumin 10/26/23 10/26/23 Range/Units 08:21 08:21 Sodium Potassium Chloride Carbon Dioxide BUN Creatinine Glucose Calcium AST ALT Alkaline Phosphatase Total Protein 7.0 Albumin Cancelled 4.7 Intake and Output 10/25/23 10/26/23 10/26/23 23:59 07:59 15:59 Intake Total 1210.8 Balance 1210.8 Intake: IV 1210.8 Heparin Sod/D5w 100 Units/ml 25 10.8 ,000 units In 250 ml @ 800 UNITS/HR 8 mls/hr IV CONT .Q24H EMILY Rx#:[id number] Sodium Chloride 0.9% IV 1,000 1000 ml @ 999 mls/hr IV CONT .Q1H1M STA Rx#:[id number] Doxycycline 100 mg/Ns 100 ml 100 100 mg In 100 ml @ 100 mls/hr IVPB ONCE ONE Rx#:[id number] cefTRIAXone 2 GM/NS 100 ML 2 gm 100 In 100 ml @ 200 mls/hr IVPB ONCE STA Rx#:[id number] Patient Weight 10/26/23 23:59 Weight 80.4 kg
[2023-10-26] MEDS: METOPROLOL SUCCINATE EXT REL 25 MG TABCR PO (15:58)
[2023-10-26] MEDS: methylPREDNISolone SOD SUCC 125 MG VIAL IV PUSH ×2 (15:58→21:13)
[2023-10-26 20:15] LABS: Hemoglobin 17.3 g/dL (12.0-15.0); Immature Granulocyte Absolute 0.01 K/mm3 (0.00-0.031); Immature Granulocyte Percent A 0.2 % (0-0.5); Lymphocytes Absolute Auto 0.22 K/mm3 (0.9-3.2); Lymphocytes Percent Auto 3.9 % (18.3-44.2); Mean Corpuscular Hemoglobin 32.6 pg (26-34); Mean Corpuscular Volume 101.9 fl (80-100); Mean Platelet Volume 10.3 fl (7.4-10.4); Monocytes Percent Auto 0.7 % (2.6-8.5); Neutrophils Absolute Auto 5.3 K/mm3 (1.3-6.7); Neutrophils Percent Auto 95.2 % (45.5-73.1); Platelet Count Result 210 k/mm3 (150-375); Red Cell Distribution Width 15.9 % (11.5-14.5); White Blood Count 5.6 K/mm3 (4.5-10.0)
[2023-10-26] MEDS: FLUTICASONE/SALMETEROL 115-21 MCG INHALER 1 PUFF 2 PUFF INHALATION (20:15)
[2023-10-26] MEDS: IPRATROPIUM 0.5 MG/ALBUTEROL SULFATE 2.5 MG AMPUL.NEB 3 ML INHALATION (20:15)
[2023-10-26 20:27] LABS: Prothrombin Time 13.2 Seconds (11.1-14.7)
[2023-10-26 20:28] LABS: Partial Thromboplastin Time 33.4 Seconds (22.3-36.8)
[2023-10-27] VITALS (24 sets, daily range): BP systolic 122–132; BP diastolic 70–82; PULSE 77–141; RESP 19–28; TEMP 36.3–36.8; O2SAT 88–95
--- NOTE | 2023-10-27 | EST_ITS ---
Patient Info Name: Minnie Anguiano Age: 63 years : 1960 Gender: Female Ht: 65 in Wt: 177 lbs BSA: 1.94 m2 HR: 132 bpm BP: 135 / 68 mmHg Heart Rhythm: Sinus Rhythm Exam Date: 10/27/2023 10:39 AM Exam Location: Echo Lab Patient Status: Inpatient Admit Date: 10/26/2023 Staff Ordering Physician: Parish Downing MD Attending Provider: Crow Abernathy MD Exercise Technologist: Emelina Palacios CT Nurse: Veronika Kim APN Exam Type: CA stress samuel w NM Study Info Indications - nonsstemi - elevated troponin A regadenoson stress test was performed. Summary 1. Sinus tachycardia, low QRS voltage, nonspecific T-wave abnormality. 2. No ST or T-wave abnormalities seen following Lexiscan infusion. 3. Clinically and electrocardiographically uneventful Lexiscan stress test. 4. Myocardial perfusion imaging exam to be reported by the Radiology Department. Protocol: Lexiscan Stress ECG Details Stage: REST Duration (min): 1 min : 34 sec HR (bpm): 123 SBP (mmHg): 135 DBP (mmHg): 68 Stage: REST Duration (min): 6 min : 49 sec HR (bpm): 130 SBP (mmHg): 135 DBP (mmHg): 68 Stage: STAGE 1 Duration (min): 1 min : 0 sec HR (bpm): 146 SBP (mmHg): 121 DBP (mmHg): 72 Stage: RECOVERY Duration (min): 1 min : 0 sec HR (bpm): 143 SBP (mmHg): 121 DBP (mmHg): 72 Stage: RECOVERY Duration (min): 2 min : 0 sec HR (bpm): 139 SBP (mmHg): 121 DBP (mmHg): 72 Stage: RECOVERY Duration (min): 3 min : 0 sec HR (bpm): 138 SBP (mmHg): 121 DBP (mmHg): 73 Stage: RECOVERY Duration (min): 4 min : 0 sec HR (bpm): 136 SBP (mmHg): 121 DBP (mmHg): 73 Stage: RECOVERY Duration (min): 4 min : 9 sec HR (bpm): 136 SBP (mmHg): 121 DBP (mmHg): 73 Rest HR: 130 bpm Peak HR: 146 bpm Rest Sys BP: 135 mmHg Peak Sys BP: 121 mmHg Max Pred HR: 157 bpm % Max Pred HR: 93 % Target HR: 133 bpm Max RPP: 17,666 bpm*mmHg Total Time: 1 min : 0 sec Rest Christianson BP: 68 mmHg Peak Christianson BP: 73 mmHg Total Dose: 0.4 mg Resting ECG Sinus tachycardia, low QRS voltage, nonspecific T-wave abnormality. Stress ECG No ST or T-wave abnormalities seen following Lexiscan infusion. Report Signatures
[2023-10-27] MEDS: methylPREDNISolone SOD SUCC 125 MG VIAL IV PUSH ×5 (01:21→23:55)
[2023-10-27] MEDS: IPRATROPIUM 0.5 MG/ALBUTEROL SULFATE 2.5 MG AMPUL.NEB 3 ML INHALATION ×4 (01:44→21:11)
[2023-10-27 04:34] LABS: Basophils Percent Auto 0.1 % (0.2-1.2); Eosinophils Percent Auto 0.1 % (0-4.4); Hematocrit 53.2 % (37.0-47.0); Hemoglobin 17.2 g/dL (12.0-15.0); Immature Granulocyte Absolute 0.02 K/mm3 (0.00-0.031); Immature Granulocyte Percent A 0.3 % (0-0.5); Lymphocytes Absolute Auto 0.26 K/mm3 (0.9-3.2); Lymphocytes Percent Auto 3.5 % (18.3-44.2); Mean Corpuscular HGB Conc 32.3 g/dl (32-36); Mean Corpuscular Hemoglobin 33.1 pg (26-34); Mean Corpuscular Volume 102.3 fl (80-100); Mean Platelet Volume 10.3 fl (7.4-10.4); Monocytes Absolute Auto 0.1 K/mm3 (0.1-0.6); Monocytes Percent Auto 1.7 % (2.6-8.5); Neutrophils Absolute Auto 7.1 K/mm3 (1.3-6.7); Neutrophils Percent Auto 94.3 % (45.5-73.1); Platelet Count Result 210 k/mm3 (150-375); Red Cell Distribution Width 15.9 % (11.5-14.5); White Blood Count 7.5 K/mm3 (4.5-10.0)
[2023-10-27 04:44] LABS: Anion Gap 5 mmol/L (4-12); Blood Urea Nitrogen 14 mg/dL (7-17); Calcium 9.5 mg/dL (8.4-10.2); Carbon Dioxide 24 mmol/L (22-30); Chloride 107 mmol/L (98-107); Cholesterol 142 mg/dL (0-200); Estimated CRCL calculation 85 ml/min; Estimated Glomerular Filt Rate > 60; Glucose 152 mg/dL (65-110); HDL Direct 51 mg/dL; Potassium 3.9 mmol/L (3.4-5.0); Sodium 136 mmol/L (137-145); Triglycerides 103 mg/dL (<150)
[2023-10-27 04:48] LABS: Partial Thromboplastin Time 72.7 Seconds (22.3-36.8)
[2023-10-27 04:55] LABS: LDL Cholesterol Direct 83 mg/dL
[2023-10-27 05:05] LABS: Hemoglobin A1C 4.9 % (<5.7)
[2023-10-27] MEDS: UMECLIDINIUM BROMIDE 62.5 MCG ELLIPTA 1 PUFF INHALATION (07:45)
[2023-10-27] MEDS: FLUTICASONE/SALMETEROL 115-21 MCG INHALER 1 PUFF 2 PUFF INHALATION ×2 (07:45→21:11)
[2023-10-27] MEDS: LORazepam INJ (*CRX) 2 MG/ML VIAL 0.5 MG IV PUSH (09:45)
--- NOTE | 2023-10-27 10:08 | PCPTNOTE ---
Attempted PT evaluation. Pt off the unit for testing. Will follow.
[2023-10-27 10:37] LABS: Partial Thromboplastin Time 51.2 Seconds (22.3-36.8)
--- NOTE | 2023-10-27 10:55 | PM.PNCARD ---
Progress Note: A&P Assessment and Plan (1) CAD (coronary artery disease): Code(s): I25.10 - Atherosclerotic heart disease of [place] coronary artery without angina pectoris Status: Acute Assessment and Plan: Nuclear stress test today showed an area of large severe nonreversible infarct involving the apical, the apical septal, apical anterior, apical lateral and apical inferior, mid anterior and mid posterior segments consistent with infarct. No reversible ischemia. I discussed the results of the test with her and her brother at the bedside this afternoon. Discussed the concept of coronary angiogram to better define her coronary anatomy. Discussed that this would be reasonable to do as an outpatient since she is asymptomatic from a cardiac standpoint. We also discussed the option of medical management. For now, will manage medically and she will discuss possible outpatient LHC with Dr. Downing in the office after discharge. Heparin gtt can be discontinued. Continue ASA, statin. (2) Elevated troponin: Code(s): R79.89 - Other specified abnormal findings of blood chemistry Status: Acute Assessment and Plan: Elevated troponin in the setting of hypoxia secondary to COPD, pneumonia, and in the setting of underlying coronary artery disease. Plan as above. Plan Subjective Date/time seen: 10/27/23 10:55 Interval history: Cardiology follow up for NSTEMI Date of service 10/27/2023: Feeling much better today. Still on 2L O2. She denies any chest pain. I am seeing her in the cardiac stress lab during her lexiscan. She had transient shortness of breath and a couple of PVC's during the test. She is eager to go home. Review of Systems Constitutional: Constitutional: Reports no additional constitutional complaints Eyes: Eyes: Reports no additional eye complaints ENT: Reports system reviewed and no additional complaints, except as documented Cardiovascular: Cardiovascular: Reports no additional cardiovascular complaints and Reports dyspnea Respiratory: Respiratory: Reports as per HPI and Reports dyspnea Gastrointestinal: Gastrointestinal: Reports no additional gastrointestinal complaints Musculoskeletal: Musculoskeletal: Reports no additional musculoskeletal complaints Integumentary/Breasts: Skin/Breast: Reports system reviewed and no additional complaints, except as docu Neurologic: Reports system reviewed and no additional complaints, except as documented Endocrine: Endocrine: Reports no additional endocrine complaints Hematologic/Lymphatic: Hematologic/Lymphatic: Reports no additional hematologic/lymphatic complaints Allergic/Immunologic: Allergic/Immunologic: Reports no additional allergic/immunologic complaints Exam Const: General: comfortable and no acute distress Other: pleasant barrel-chested, [place] faced 63-year-old lady essentially comfortable at this time reporting no ongoing symptoms HENMT: Mouth: Yes moist mucous membranes Eyes: Sclera: sclerae normal Neck: Neck: supple Resp: Other: patient has somewhat prolonged expiratory phase no active wheezing breath sounds are markedly diminished in both lung veloz Cardio: Rate: regular rate and tachycardic Rhythm: regular rhythm Other: no audible murmur or gallop GI: Auscultation: normal bowel sounds Skin: General skin exam: normal color Neuro: Other: alert and oriented x3 Extrem: Other: no edema adequate perfusion Objective Data Vital Signs Vital Signs: Vital Signs - 24 hr 10/26/23 12:45 10/26/23 11:31 10/26/23 12:01 Temperature Pulse Rate 107 H 130 H 138 H Respiratory Rate 35 H 20 Blood Pressure 98/67 L 105/75 Pulse Oximetry 92 93 Oxygen Delivery Oxygen Flow Rate Fraction of Inspired Oxygen 10/26/23 12:31 10/26/23 13:01 10/26/23 14:00 Temperature Pulse Rate 134 H 135 H 102 H Respiratory Rate 25 H 24 H Blood Pressure 110/83 116/80 Pulse Oximetry 95 95 Oxygen Delivery Oxygen Flow Rate Fraction of Inspired Oxygen 10/26/23 13:30 10/26/23 15:14 10/26/23 15:53 Temperature 36.6 C Pulse Rate 109 H Respiratory Rate 18 Blood Pressure 136/82 Pulse Oximetry 95 94 91 Oxygen Delivery Nasal Cannula Nasal Cannula Oxygen Flow Rate 2 1 Fraction of Inspired Oxygen 28 24 10/26/23 15:52 10/26/23 15:43 10/26/23 15:58 Temperature 37.5 C Pulse Rate 109 H 113 H Respiratory Rate 24 H Blood Pressure 117/76 Pulse Oximetry 87 L 90 Oxygen Delivery Room Air Oxygen Flow Rate Fraction of Inspired Oxygen 10/26/23 16:00 10/26/23 16:00 10/26/23 18:00 Temperature Pulse Rate 109 H 105 H Respiratory Rate Blood Pressure Pulse Oximetry 92 Oxygen Delivery Nasal Cannula Oxygen Flow Rate 1 Fraction of Inspired Oxygen 10/26/23 20:16 10/26/23 20:19 10/26/23 20:25 Temperature 36.7 C Pulse Rate 106 H 96 Respiratory Rate 21 H 20 Blood Pressure 132/90 Pulse Oximetry 89 L 91 Oxygen Delivery Nasal Cannula Oxygen Flow Rate 1 Fraction of Inspired Oxygen 10/26/23 20:30 10/26/23 20:00 10/26/23 23:50 Temperature 36.5 C Pulse Rate 110 H 140 H Respiratory Rate 21 H 24 H Blood Pressure 148/91 H Pulse Oximetry 91 93 Oxygen Delivery Nasal Cannula Oxygen Flow Rate 1 Fraction of Inspired Oxygen 10/26/23 20:00 10/26/23 22:00 10/27/23 00:00 Temperature Pulse Rate 100 130 H 125 H Respiratory Rate Blood Pressure Pulse Oximetry Oxygen Delivery Oxygen Flow Rate Fraction of Inspired Oxygen 10/27/23 01:46 10/26/23 20:21 10/27/23 01:48 Temperature Pulse Rate 96 Respiratory Rate 19 Blood Pressure Pulse Oximetry 92 93 Oxygen Delivery Nasal Cannula Nasal Cannula Oxygen Flow Rate 2 2 Fraction of Inspired Oxygen 28 10/27/23 01:53 10/27/23 02:00 10/27/23 00:00 Temperature Pulse Rate 90 88 Respiratory Rate 19 Blood Pressure Pulse Oximetry 93 Oxygen Delivery Nasal Cannula Oxygen Flow Rate 1 Fraction of Inspired Oxygen 10/27/23 04:34 10/27/23 04:00 10/27/23 04:00 Temperature 36.4 C Pulse Rate 92 92 Respiratory Rate 20 Blood Pressure 122/74 Pulse Oximetry 92 92 Oxygen Delivery Nasal Cannula Oxygen Flow Rate 2 Fraction of Inspired Oxygen 10/27/23 06:00 10/27/23 07:46 10/27/23 07:40 Temperature Pulse Rate 77 92 Respiratory Rate 20 Blood Pressure Pulse Oximetry 93 Oxygen Delivery Nasal Cannula Oxygen Flow Rate 2 Fraction of Inspired Oxygen 10/27/23 07:50 10/27/23 08:00 Temperature 36.3 C L Pulse Rate 95 92 Respiratory Rate 20 28 H Blood Pressure 128/70 Pulse Oximetry 90 Oxygen Delivery Oxygen Flow Rate Fraction of Inspired Oxygen Intake/Output Intake/Output: Intake & Output 10/24/23 10/25/23 10/26/23 10/27/23 23:59 23:59 23:59 23:59 Intake Total 2708.9 433.8 Balance 2708.9 433.8 Meds/Results Medications: Active Medications Generic Name Dose Route Start Last Admin Trade Name Freq PRN Reason Stop Dose Admin Acetaminophen 650 mg 10/26/23 14:14 Acetaminophen 325 Mg Tablet PO Q4H PRN Mild Pain (1-3) or Fever Al Hydrox/Mg Hydrox/Simethicone 30 ml 10/26/23 14:14 Mag Hydrox/Al Hydrox/Simeth 30 Ml Udc PO QID PRN Dyspepsia Albuterol/Ipratropium 3 ml 10/26/23 20:00 10/27/23 07:44 Ipratropium 0.5 Mg/Albuterol Sulfate 2.5 Mg Ampul.Neb 3 Ml INHALATION 3 ml Q6HRT EMILY Administration Aspirin 81 mg 10/27/23 09:00 Aspirin 81 Mg Enteric Tablet PO QAM EMILY Atorvastatin Calcium 40 mg 10/27/23 09:00 Atorvastatin 40 Mg Tablet PO DAILY [facility] Docusate Sodium 100 mg 10/26/23 17:00 10/26/23 17:28 Docusate Sodium 100 Mg Capsule PO Not Given BID [facility] Heparin Sodium (Porcine) 4,000 units 10/26/23 12:04 10/26/23 21:14 Heparin Sodium 5,000 Units/Ml Vial IV PUSH 4,000 units PRN PRN Administration aPTT less than 55 seconds Heparin Sodium (Porcine) 2,500 units 10/26/23 12:04 Heparin Sodium 5,000 Units/Ml Vial IV PUSH PRN PRN aPTT 55 - 70 seconds Heparin Sodium/Dextrose 25,000 units in 250 mls @ 11 mls/hr 10/26/23 12:05 10/27/23 04:53 Heparin Sodium/D5w 100 Units/Ml IV CONT 1,100 units/hr .[id number] EMILY 11 mls/hr Titration Protocol 1,100 UNITS/HR Ceftriaxone Sodium 1 gm in 50 mls @ 100 mls/hr 10/27/23 11:00 Rocephin 1 Gm/Ns 50 Ml IVPB Q24H EMILY Doxycycline Hyclate 100 mg in 100 mls @ 100 mls/hr 10/26/23 21:00 10/26/23 22:25 Vibramycin 100 Mg/Ns 100 Ml IVPB Infused Q12HR EMILY Infusion Methylprednisolone Sodium Succinate 125 mg 10/26/23 14:25 10/27/23 05:13 Methylprednisolone Sod Succ 125 Mg Vial IV PUSH 125 mg Q6HR EMILY Administration Metoprolol Succinate 25 mg 10/26/23 15:40 10/26/23 15:58 Metoprolol Succinate Ext Rel 25 Mg Tabcr PO 25 mg QAM [facility] Administration Fluticasone/Salmeterol 2 puff 10/26/23 20:00 10/27/23 07:45 Fluticasone/Salmeterol 115-21 Mcg Inhaler 1 Puff INHALATION 2 puff Q12HRT EMILY Administration Umeclidinium [place] 1 puff 10/27/23 09:00 10/27/23 07:45 Umeclidinium [place] 62.5 Mcg Ellipta INHALATION 1 puff DAILY EMILY Administration Radiology Results: ITS Impressions Chest X-Ray 10/26/23 09:32 IMPRESSION: 1. Focal airspace opacity in the left lower lung zone which could represent atelectasis or pneumonia. Labs Labs: Laboratory Results - last 24 hr 10/26/23 10/26/23 10/26/23 08:20 10:43 11:11 WBC RBC Hgb Hct MCV MCH MCHC RDW Plt Count MPV Immature Gran % (Auto) Neut % (Auto) Lymph % (Auto) [place] % (Auto) Eos % (Auto) Baso % (Auto) Lymph # (Auto) [place] # (Auto) Eos # (Auto) Baso # (Auto) Abs Immat Gran (auto) Absolute Neuts (auto) Absolute Nucleated RBC Nucleated RBC % PT 11.9 INR 0.8 APTT 27.5 Puncture Site ABG pH ABG pCO2 ABG pO2 ABG PO2/FiO2 Ratio ABG HCO3 ABG O2 Saturation ABG O2 Content ABG Base Excess A-a Gradient Oxyhemoglobin Total Hemoglobin O2 Delivery Device O2 Liters/Min FiO2 Sodium Potassium Chloride Carbon Dioxide Anion Gap BUN Creatinine Estim Creat Clear Calc Estimated GFR Glucose Hemoglobin A1c Lactic Acid 1.3 Calcium Troponin I 1.480 H* D Triglycerides Cholesterol LDL Cholesterol Direct HDL Direct 10/26/23 10/26/23 10/26/23 14:30 15:15 19:49 WBC 5.6 RBC 5.30 Hgb 17.3 H Hct 54.0 H MCV 101.9 H MCH 32.6 MCHC 32.0 RDW 15.9 H Plt Count 210 MPV 10.3 Immature Gran % (Auto) 0.2 Neut % (Auto) 95.2 H Lymph % (Auto) 3.9 L [place] % (Auto) 0.7 L Eos % (Auto) 0.0 Baso % (Auto) 0.0 L Lymph # (Auto) 0.22 L [place] # (Auto) 0.0 L Eos # (Auto) 0.0 Baso # (Auto) 0.0 Abs Immat Gran (auto) 0.01 Absolute Neuts (auto) 5.3 Absolute Nucleated RBC 0.000 Nucleated RBC % 0.0 PT 13.2 INR 1.0 APTT 33.4 Puncture Site Right radial ABG pH 7.417 ABG pCO2 35.5 ABG pO2 64.4 L ABG PO2/FiO2 Ratio 2.30 ABG HCO3 22.4 ABG O2 Saturation 93.1 L ABG O2 Content 24.3 H ABG Base Excess -1.4 A-a Gradient 93.4 Oxyhemoglobin 91.9 Total Hemoglobin 18.9 H O2 Delivery Device Nasal cannula O2 Liters/Min 2.0 FiO2 28 Sodium Potassium Chloride Carbon Dioxide Anion Gap BUN Creatinine Estim Creat Clear Calc Estimated GFR Glucose Hemoglobin A1c Lactic Acid Calcium Troponin I 1.860 H* D Triglycerides Cholesterol LDL Cholesterol Direct HDL Direct 10/27/23 10/27/23 10/27/23 03:51 04:02 10:10 WBC 7.5 RBC 5.20 Hgb 17.2 H Hct 53.2 H MCV 102.3 H MCH 33.1 MCHC 32.3 RDW 15.9 H Plt Count 210 MPV 10.3 Immature Gran % (Auto) 0.3 Neut % (Auto) 94.3 H Lymph % (Auto) 3.5 L [place] % (Auto) 1.7 L Eos % (Auto) 0.1 Baso % (Auto) 0.1 L Lymph # (Auto) 0.26 L [place] # (Auto) 0.1 Eos # (Auto) 0.0 Baso # (Auto) 0.0 Abs Immat Gran (auto) 0.02 Absolute Neuts (auto) 7.1 H Absolute Nucleated RBC 0.000 Nucleated RBC % 0.0 PT INR APTT 72.7 H 51.2 H Puncture Site ABG pH ABG pCO2 ABG pO2 ABG PO2/FiO2 Ratio ABG HCO3 ABG O2 Saturation ABG O2 Content ABG Base Excess A-a Gradient Oxyhemoglobin Total Hemoglobin O2 Delivery Device O2 Liters/Min FiO2 Sodium 136 L Potassium 3.9 Chloride 107 Carbon Dioxide 24 Anion Gap 5 BUN 14 Creatinine 0.60 L Estim Creat Clear Calc 85 Estimated GFR > 60 Glucose 152 H Hemoglobin A1c 4.9 Lactic Acid Calcium 9.5 Troponin I Triglycerides 103 Cholesterol 142 LDL Cholesterol Direct 83 HDL Direct 51
--- NOTE | 2023-10-27 11:24 | PC.NURSE ---
Pt off unit via wheelchair for lexiscan stress test with heparin drip infusing.
[2023-10-27] MEDS: METOPROLOL SUCCINATE EXT REL 25 MG TABCR PO (11:51)
[2023-10-27] MEDS: ASPIRIN 81 MG ENTERIC TABLET PO (11:52)
[2023-10-27] MEDS: DOXYCYCLINE 100 MG/NS 100 ML 100 MG/100 ML BAG IVPB ×2 (11:52→20:48)
[2023-10-27] MEDS: HEPARIN SODIUM 5,000 UNITS/ML VIAL 4000 UNITS IV PUSH (11:53)
[2023-10-27] MEDS: ATORVASTATIN 40 MG TABLET PO (11:53)
[2023-10-27] MEDS: HEPARIN SOD/D5W 100 UNITS/ML 25,000 UNITS/250 ML BAG 11 UNITS IV CONT (11:54)
--- NOTE | 2023-10-27 13:14 | PCPTNOTE ---
Attempted PT evaluation for 2nd time. Pt's rest HR in 120's. RN requested therapist try at a later time. Will follow.
--- NOTE | 2023-10-27 14:29 | P.PNIM_ITS ---
Progress Note: A&P Assessment and Plan (1) Community acquired pneumonia: Qualifiers: Laterality: left Lung location: lower lobe of lung Qualified Code(s): J18.9 - Pneumonia, unspecified organism Code(s): J18.9 - Pneumonia, unspecified organism Status: Acute Assessment and Plan: * CXR showed focal airspace opacity in the left lower lung zone which could represent atelectasis or pneumonia. * given COPD dx, will treat with Rocephin and doxycycline as her QTC is elongated * supplemental O2 - work to wean; may need O2 eval prior to discharge * Duonebs * IV Solumedrol Q6 * BC pending (2) Acute exacerbation of chronic obstructive pulmonary disease: Code(s): J44.1 - Chronic obstructive pulmonary disease with (acute) exacerbation Status: Acute Assessment and Plan: * continue at home inhalers * supplemental O2 - work to wean * Duonebs * IV Solumedrol Q6 * ABG showed low pO2 at 64.4 L (3) Elevated troponin: Code(s): R79.89 - Other specified abnormal findings of blood chemistry Status: Acute Assessment and Plan: * [place] 0.4 -> 1.48 -> 1.86 * Cardiology following * stress tests done today * could be secondary to ischemic demand * continue heparin until further evaluation * PT/PTT/INR and D-dimer WNL Subjective Date/time seen: 10/27/23 14:29 Interval history: Patient eager to go home today. She is still requiring oxygen at 2 L. She is still being treated for PNA and cardiology stress testing done this morning. Patient emotional as she feels she cannot sleep well here, offered HS medication and declined. Discussed importance of cardiac work up, oxygen evaluation and 48 hours of BC prior to d/c. Hopefully for tomorrow if continues to improve/remain stable. Review of Systems Review of Systems: All systems reviewed & are unremarkable except as noted in HPI and below Exam Narrative: GENERAL: Well-appearing, well-nourished, in no acute distress HEAD: Normocephalic, atraumatic. EYES: PERRLA and EOMI. ENT: Mucous membranes moist. NECK: Supple. CHEST: Decreased air movement bilaterally. No wheezes. HEART: Regular rhythm, tachycardic. Normal peripheral pulses. ABDOMEN: Soft, nontender, nondistended. EXTREMITIES: Normal range of motion. No edema. No calf tenderness. SKIN: Warm, dry, no rash. NEURO: No focal deficits. Alert and oriented x3. PSYCH: Normal mood and affect. Objective Data Vital Signs Vital Signs: Vital Signs - 24 hr 10/26/23 15:14 10/26/23 15:53 10/26/23 15:52 Temperature Pulse Rate Respiratory Rate Blood Pressure Pulse Oximetry 94 91 87 L Oxygen Delivery Nasal Cannula Nasal Cannula Room Air Oxygen Flow Rate 2 1 Fraction of Inspired Oxygen 10/26/23 15:43 10/26/23 15:58 10/26/23 16:00 Temperature 99.5 F Pulse Rate 109 H 113 H 109 H Respiratory Rate 24 H Blood Pressure 117/76 Pulse Oximetry 90 Oxygen Delivery Oxygen Flow Rate Fraction of Inspired Oxygen 10/26/23 16:00 10/26/23 18:00 10/26/23 20:16 Temperature Pulse Rate 105 H 106 H Respiratory Rate 21 H Blood Pressure Pulse Oximetry 92 Oxygen Delivery Nasal Cannula Oxygen Flow Rate 1 Fraction of Inspired Oxygen 10/26/23 20:19 10/26/23 20:25 10/26/23 20:30 Temperature 98.0 F Pulse Rate 96 110 H Respiratory Rate 20 21 H Blood Pressure 132/90 Pulse Oximetry 89 L 91 Oxygen Delivery Nasal Cannula Oxygen Flow Rate 1 Fraction of Inspired Oxygen 10/26/23 20:00 10/26/23 23:50 10/26/23 20:00 Temperature 97.7 F Pulse Rate 140 H 100 Respiratory Rate 24 H Blood Pressure 148/91 H Pulse Oximetry 91 93 Oxygen Delivery Nasal Cannula Oxygen Flow Rate 1 Fraction of Inspired Oxygen 10/26/23 22:00 10/27/23 00:00 10/27/23 01:46 Temperature Pulse Rate 130 H 125 H 96 Respiratory Rate 19 Blood Pressure Pulse Oximetry Oxygen Delivery Oxygen Flow Rate Fraction of Inspired Oxygen 10/26/23 20:21 10/27/23 01:48 10/27/23 01:53 Temperature Pulse Rate 90 Respiratory Rate 19 Blood Pressure Pulse Oximetry 92 93 Oxygen Delivery Nasal Cannula Nasal Cannula Oxygen Flow Rate 2 2 Fraction of Inspired Oxygen 10/27/23 02:00 10/27/23 00:00 10/27/23 04:34 Temperature 97.6 F Pulse Rate 88 92 Respiratory Rate 20 Blood Pressure 122/74 Pulse Oximetry 93 92 Oxygen Delivery Nasal Cannula Oxygen Flow Rate 1 Fraction of Inspired Oxygen 10/27/23 04:00 10/27/23 04:00 10/27/23 06:00 Temperature Pulse Rate 92 77 Respiratory Rate Blood Pressure Pulse Oximetry 92 Oxygen Delivery Nasal Cannula Oxygen Flow Rate 2 Fraction of Inspired Oxygen 10/27/23 07:46 10/27/23 07:40 10/27/23 07:50 Temperature Pulse Rate 92 95 Respiratory Rate 20 20 Blood Pressure Pulse Oximetry 93 Oxygen Delivery Nasal Cannula Oxygen Flow Rate 2 Fraction of Inspired Oxygen 10/27/23 08:00 10/27/23 08:00 10/27/23 08:00 Temperature 97.4 F L Pulse Rate 92 92 Respiratory Rate 28 H Blood Pressure 128/70 Pulse Oximetry 90 92 Oxygen Delivery Nasal Cannula Oxygen Flow Rate 2 Fraction of Inspired Oxygen 10/27/23 10:00 10/27/23 12:00 10/27/23 13:40 Temperature 98.3 F Pulse Rate 120 H 141 H 91 Respiratory Rate 20 20 Blood Pressure 122/72 Pulse Oximetry 90 Oxygen Delivery Oxygen Flow Rate Fraction of Inspired Oxygen 10/27/23 13:59 Temperature Pulse Rate 94 Respiratory Rate 20 Blood Pressure Pulse Oximetry Oxygen Delivery Oxygen Flow Rate Fraction of Inspired Oxygen Intake/Output Intake/Output: Intake & Output 10/24/23 10/25/23 10/26/23 10/27/23 23:59 23:59 23:59 23:59 Intake Total 2708.9 511.0 Balance 2708.9 511.0 Meds/Results Medications: Active Medications Generic Name Dose Route Start Last Admin Trade Name Freq PRN Reason Stop Dose Admin Acetaminophen 650 mg 10/26/23 14:14 Acetaminophen 325 Mg Tablet PO Q4H PRN Mild Pain (1-3) or Fever Al Hydrox/Mg Hydrox/Simethicone 30 ml 10/26/23 14:14 Mag Hydrox/Al Hydrox/Simeth 30 Ml Udc PO QID PRN Dyspepsia Albuterol/Ipratropium 3 ml 10/26/23 20:00 10/27/23 13:44 Ipratropium 0.5 Mg/Albuterol Sulfate 2.5 Mg Ampul.Neb 3 Ml INHALATION 3 ml Q6HRT EMILY Administration Aspirin 81 mg 10/27/23 09:00 10/27/23 11:52 Aspirin 81 Mg Enteric Tablet PO 81 mg QAM EMILY Administration Atorvastatin Calcium 40 mg 10/27/23 09:00 10/27/23 11:53 Atorvastatin 40 Mg Tablet PO 40 mg DAILY EMILY Administration Docusate Sodium 100 mg 10/26/23 17:00 10/27/23 11:51 Docusate Sodium 100 Mg Capsule PO Not Given BID EMILY Heparin Sodium (Porcine) 4,000 units 10/26/23 12:04 10/27/23 11:53 Heparin Sodium 5,000 Units/Ml Vial IV PUSH 4,000 units PRN PRN Administration aPTT less than 55 seconds Heparin Sodium (Porcine) 2,500 units 10/26/23 12:04 Heparin Sodium 5,000 Units/Ml Vial IV PUSH PRN PRN aPTT 55 - 70 seconds Heparin Sodium/Dextrose 25,000 units in 250 mls @ 11 mls/hr 10/26/23 12:05 10/27/23 11:54 Heparin Sodium/D5w 100 Units/Ml IV CONT 1,100 units/hr .[id number] EMILY 11 mls/hr Administration Protocol 1,100 UNITS/HR Ceftriaxone Sodium 1 gm in 50 mls @ 100 mls/hr 10/27/23 11:00 10/27/23 11:53 Rocephin 1 Gm/Ns 50 Ml IVPB 100 mls/hr Q24H EMILY Administration Doxycycline Hyclate 100 mg in 100 mls @ 100 mls/hr 10/26/23 21:00 10/27/23 11:52 Vibramycin 100 Mg/Ns 100 Ml IVPB 100 mls/hr Q12HR EMILY Administration Methylprednisolone Sodium Succinate 125 mg 10/26/23 14:25 10/27/23 05:13 Methylprednisolone Sod Succ 125 Mg Vial IV PUSH 125 mg Q6HR EMILY Administration Metoprolol Succinate 25 mg 10/26/23 15:40 10/27/23 11:51 Metoprolol Succinate Ext Rel 25 Mg Tabcr PO 25 mg QAM EMILY Administration Fluticasone/Salmeterol 2 puff 10/26/23 20:00 10/27/23 07:45 Fluticasone/Salmeterol 115-21 Mcg Inhaler 1 Puff INHALATION 2 puff Q12HRT EMILY Administration Umeclidinium [place] 1 puff 10/27/23 09:00 10/27/23 07:45 Umeclidinium [place] 62.5 Mcg Ellipta INHALATION 1 puff DAILY EMILY Administration Radiology Results: ITS Impressions Chest X-Ray 10/26/23 09:32 IMPRESSION: 1. Focal airspace opacity in the left lower lung zone which could represent atelectasis or pneumonia. Lexiscan Stress Test 10/27/23 13:20 IMPRESSION: 1. Large severe nonreversible infarct involving the apical, each of the periapical and the mid anterior and mid inferior segments. No reversible ischemia. 2. Left ventricular ejection fraction measuring 65%. Labs Labs: Laboratory Results - last 24 hr 10/26/23 10/26/23 10/26/23 14:30 15:15 19:49 WBC 5.6 RBC 5.30 Hgb 17.3 H Hct 54.0 H MCV 101.9 H MCH 32.6 MCHC 32.0 RDW 15.9 H Plt Count 210 MPV 10.3 Immature Gran % (Auto) 0.2 Neut % (Auto) 95.2 H Lymph % (Auto) 3.9 L [place] % (Auto) 0.7 L Eos % (Auto) 0.0 Baso % (Auto) 0.0 L Lymph # (Auto) 0.22 L [place] # (Auto) 0.0 L Eos # (Auto) 0.0 Baso # (Auto) 0.0 Abs Immat Gran (auto) 0.01 Absolute Neuts (auto) 5.3 Absolute Nucleated RBC 0.000 Nucleated RBC % 0.0 PT 13.2 INR 1.0 APTT 33.4 Puncture Site Right radial ABG pH 7.417 ABG pCO2 35.5 ABG pO2 64.4 L ABG PO2/FiO2 Ratio 2.30 ABG HCO3 22.4 ABG O2 Saturation 93.1 L ABG O2 Content 24.3 H ABG Base Excess -1.4 A-a Gradient 93.4 Oxyhemoglobin 91.9 Total Hemoglobin 18.9 H O2 Delivery Device Nasal cannula O2 Liters/Min 2.0 FiO2 28 Sodium Potassium Chloride Carbon Dioxide Anion Gap BUN Creatinine Estim Creat Clear Calc Estimated GFR Glucose Hemoglobin A1c Calcium Troponin I 1.860 H* D Triglycerides Cholesterol LDL Cholesterol Direct HDL Direct 10/27/23 10/27/23 10/27/23 03:51 04:02 10:10 WBC 7.5 RBC 5.20 Hgb 17.2 H Hct 53.2 H MCV 102.3 H MCH 33.1 MCHC 32.3 RDW 15.9 H Plt Count 210 MPV 10.3 Immature Gran % (Auto) 0.3 Neut % (Auto) 94.3 H Lymph % (Auto) 3.5 L [place] % (Auto) 1.7 L Eos % (Auto) 0.1 Baso % (Auto) 0.1 L Lymph # (Auto) 0.26 L [place] # (Auto) 0.1 Eos # (Auto) 0.0 Baso # (Auto) 0.0 Abs Immat Gran (auto) 0.02 Absolute Neuts (auto) 7.1 H Absolute Nucleated RBC 0.000 Nucleated RBC % 0.0 PT INR APTT 72.7 H 51.2 H Puncture Site ABG pH ABG pCO2 ABG pO2 ABG PO2/FiO2 Ratio ABG HCO3 ABG O2 Saturation ABG O2 Content ABG Base Excess A-a Gradient Oxyhemoglobin Total Hemoglobin O2 Delivery Device O2 Liters/Min FiO2 Sodium 136 L Potassium 3.9 Chloride 107 Carbon Dioxide 24 Anion Gap 5 BUN 14 Creatinine 0.60 L Estim Creat Clear Calc 85 Estimated GFR > 60 Glucose 152 H Hemoglobin A1c 4.9 Calcium 9.5 Troponin I Triglycerides 103 Cholesterol 142 LDL Cholesterol Direct 83 HDL Direct 51 Quality VTE Prophylaxis VTE prophylaxis: pharmacologic ordered
[2023-10-27 18:08] LABS: Partial Thromboplastin Time 32.8 Seconds (22.3-36.8)
[2023-10-28] VITALS (22 sets, daily range): BP systolic 102–133; BP diastolic 59–82; PULSE 74–140; RESP 18–26; TEMP 36.6; O2SAT 92–98
--- NOTE | 2023-10-28 | ECHO_ITS ---
Patient Info Name: Minnie Anguiano Age: 63 years : 1960 Gender: Female Ht: 65 in Wt: 176 lbs BSA: 1.94 m2 HR: 88 bpm BP: 121 / 82 mmHg Heart Rhythm: Sinus Rhythm Technical Quality: Fair Exam Date: 10/28/2023 12:48 PM Exam Location: Echo Lab Exam Room: [facility] Patient Status: Inpatient Admit Date: 10/26/2023 Staff Ordering Physician: Cooper Mathias MD Layout Designer: Idalia Rodriguez RDCS Attending Provider: Crow Abernathy MD Referring Physician: Stew CONDE; Exam Type: CA echo dop color flow w con Study Info Indications - nstemi Complete two-dimensional, color flow and Doppler transthoracic echocardiogram is performed with contrast to opacify the left ventricle and to improve the deliniation of the left ventricle endocardial borders. Contrast/Agitated Saline Contrast/Ag. Saline: Definity Amount: 2.00 ml Administered By: Idalia Rodriguez [facility] Existing IV Access: Yes IV Access Condition: patent with no signs of infiltration Summary 1. Left ventricular systolic function is low normal, estimated at 50-55%. 2. The apex is akinetic. 3. The mid anterior wall, mid inferoseptal, mid anterolateral wall, and mid anteroseptal are hypokinetic. 4. Left ventricular chamber dimension is normal. 5. The left ventricular diastolic function is grade I diastolic dysfunction. 6. There is mildly increased left ventricular wall thickness. 7. Left atrial chamber dimension is mildly enlarged. 8. There is mild mitral valve regurgitation. 9. There is mild tricuspid valve regurgitation. 10. Mild pulmonary hypertension, estimated pulmonary arterial systolic pressure is 35 mmHg. Left Ventricle Left ventricular systolic function is low normal, estimated at 50-55%. Left ventricular chamber dimension is normal. There is mildly increased left ventricular wall thickness. The left ventricular diastolic function is grade I diastolic dysfunction. The apex is akinetic. The mid anterior wall, mid inferoseptal, mid anterolateral wall, and mid anteroseptal are hypokinetic. All other meyers appear normal. Right Ventricle Right ventricular chamber dimension is normal. Right ventricular systolic function is normal. Left Atria Left atrial chamber dimension is mildly enlarged. Right Atria Right atrial chamber dimension is normal. Atrial Septum Intact interatrial septum visualized by color flow imaging. Aortic Valve The aortic valve is trileaflet. There is mild aortic valve sclerosis. There is no aortic valve stenosis. There is trace aortic valve regurgitation. Pulmonic Valve The pulmonic valve is normal. There is no pulmonic valve stenosis. There is trace pulmonic regurgitation. Mitral Valve The mitral valve has normal leaflets. There is no mitral valve stenosis. There is mild mitral valve regurgitation. Tricuspid Valve The tricuspid valve leaflets are normal. There is no significant tricuspid valve stenosis. There is mild tricuspid valve regurgitation. Mild pulmonary hypertension, estimated pulmonary arterial systolic pressure is 35 mmHg. Pericardium/Pleural The pericardium appears normal. There is no pericardial effusion. Inferior Vena Cava Dilated inferior vena cava with >50% collapse upon inspiration consistent with elevated right atrial pressure, 10 mmHg. Aorta The aortic root size at the sinus of Valsalva is normal. Left Ventricular Outflow Tract Name Value Normal LVOT 2D LVOT Diameter 2.05 cm LVOT Doppler LVOT Peak Gradient 4 mmHg LVOT Mean Gradient 3 mmHg LVOT VTI 22.39 cm LVOT VTI/AV VTI Ratio 0.88 LVOT Stroke Volume 73.65 ml LVOT CO 16.13 l/min LVOT CI 8.33 L/min/m2 Pulmonic Valve Name Value Normal PV Doppler PV Peak Gradient 4 mmHg Mitral Valve Name Value Normal MV Doppler MV Decel [place] 470.60 cm/s2 MV PHT 0 s MV Area (PHT) 5.25 cm2 4.00-5.00 MV Diastolic Function MV E Peak Velocity 67.98 cm/s MV A Peak Velocity 77.77 cm/s MV E/A 0.87 MV Decel Time 0 s Tricuspid Valve Name Value Normal TV Regurgitation Doppler TR Peak Velocity 250.37 cm/s TR Peak Gradient 25 mmHg Estimated PAP/RSVP RA Pressure 10 mmHg <=5 PA Systolic Pressure 35 mmHg <36 RV Systolic Pressure 35 mmHg <36 Aorta Name Value Normal Ascending Aorta Ao Root Diameter (MM) 2.88 cm Ao Root Diam Index (MM) 1.49 cm/m2 Aortic Valve Name Value Normal AV Doppler AV Peak Velocity 132.09 cm/s AV Peak Gradient 7 mmHg AV Mean Gradient 4 mmHg AV VTI 25.50 cm AV Area (Cont Eq VTI) 2.89 cm2 >=3.00 AV Area (Cont Eq Tony) 2.62 cm2 AV Regurgitation 2D LVOT Area 3.29 cm2 Ventricles Name Value Normal LV Dimensions 2D/MM IVS Diastolic Thickness (2D) 0.66 cm 0.60-1.00 LVID Diastole (2D) 5.15 cm 3.80-5.20 LVIW Diastolic Thickness (2D) 0.93 cm 0.60-0.90 LVID Systole (2D) 3.45 cm 2.20-3.50 LVOT Diameter 2.05 cm LV Mass (2D Cubed) 141.80 g 67.00-162.00 LV Mass Index (2D Cubed) 0.01 g/cm2 0.00-0.01 Relative Wall Thickness (2D) 0.36 LV Fractional Shortening/Ejection Fraction 2D/MM LV Fractional Shortening (2D) 33 % 27-45 LV EF (2D Teicholz) 61 % 54-74 LV Diastolic Volume (4C MOD) 109.51 ml LV EF (4C MOD) 62 % LV Diastolic Volume (2C MOD) 99.41 ml LV EF (2C MOD) 56 % LV Diastolic Volume (BP MOD) 104.74 ml 46.00-106.00 LV Diastolic Volume Index (BP MOD) 0.05 l/m2 0.03-0.06 LV Systolic Volume (BP MOD) 42.06 ml 14.00-42.00 LV Systolic Volume Index (BP MOD) 0.02 l/m2 0.01-0.02 LV EF (BP MOD) 60 % 54-74 LV Diastolic Length (4C) 7.86 cm LV Systolic Length (4C) 6.96 cm LV Stroke Volume (4C MOD) 68.22 ml Atria Name Value Normal LA Dimensions LA Dimension (MM) 4.44 cm 2.70-3.80 LA Volume (4C A-L) 45.96 ml LA Volume (BP A-L) 46.92 ml RA Dimensions RA Area (4C) 15.33 cm2 <=18.00 Wall Motion Scoring Wall Motion Scoring Index: 1.88 Report Signatures
[2023-10-28] MEDS: IPRATROPIUM 0.5 MG/ALBUTEROL SULFATE 2.5 MG AMPUL.NEB 3 ML INHALATION ×3 (02:02→13:54)
[2023-10-28 04:51] LABS: Hematocrit 55.5 % (37.0-47.0); Hemoglobin 17.5 g/dL (12.0-15.0); Mean Corpuscular HGB Conc 31.5 g/dl (32-36); Mean Corpuscular Hemoglobin 32.5 pg (26-34); Mean Platelet Volume 10.3 fl (7.4-10.4); Platelet Count Result 221 k/mm3 (150-375); Red Blood Count 5.39 M/mm3 (4.2-5.4); Red Cell Distribution Width 15.8 % (11.5-14.5); White Blood Count 11.8 K/mm3 (4.5-10.0)
[2023-10-28 05:21] LABS: Anion Gap 8 mmol/L (4-12); Blood Urea Nitrogen 25 mg/dL (7-17); Calcium 9.8 mg/dL (8.4-10.2); Carbon Dioxide 26 mmol/L (22-30); Chloride 106 mmol/L (98-107); Estimated CRCL calculation 59 ml/min; Estimated Glomerular Filt Rate > 60; Glucose 142 mg/dL (65-110); Potassium 3.9 mmol/L (3.4-5.0); Sodium 140 mmol/L (137-145)
[2023-10-28] MEDS: methylPREDNISolone SOD SUCC 125 MG VIAL IV PUSH ×2 (05:47→12:01)
[2023-10-28] MEDS: FLUTICASONE/SALMETEROL 115-21 MCG INHALER 1 PUFF 2 PUFF INHALATION (07:49)
[2023-10-28] MEDS: ASPIRIN 81 MG ENTERIC TABLET PO (08:22)
[2023-10-28] MEDS: ATORVASTATIN 40 MG TABLET PO (08:22)
[2023-10-28] MEDS: METOPROLOL SUCCINATE EXT REL 25 MG TABCR PO (08:22)
[2023-10-28] MEDS: ENOXAPARIN 40 MG/0.4 ML SYRINGE SUB-Q (08:24)
[2023-10-28] MEDS: DOXYCYCLINE 100 MG/NS 100 ML 100 MG/100 ML BAG IVPB (08:24)
--- NOTE | 2023-10-28 09:28 | P.PNIM_ITS ---
Progress Note: A&P Assessment and Plan (1) Community acquired pneumonia: Qualifiers: Laterality: left Lung location: lower lobe of lung Qualified Code(s): J18.9 - Pneumonia, unspecified organism Code(s): J18.9 - Pneumonia, unspecified organism Status: Acute Assessment and Plan: * CXR showed focal airspace opacity in the left lower lung zone which could represent atelectasis or pneumonia. * given COPD dx, will treat with Rocephin and doxycycline as her QTC is elongated * supplemental O2 - work to wean; may need O2 eval prior to discharge * Duonebs * IV Solumedrol Q6 * BC pending (2) Acute exacerbation of chronic obstructive pulmonary disease: Code(s): J44.1 - Chronic obstructive pulmonary disease with (acute) exacerbation Status: Acute Assessment and Plan: * continue at home inhalers * supplemental O2 - work to wean * Duonebs * IV Solumedrol Q6 * ABG showed low pO2 at 64.4 L (3) Elevated troponin: Code(s): R79.89 - Other specified abnormal findings of blood chemistry Status: Acute Assessment and Plan: * Trops 0.4 -> 1.48 -> 1.86 * Cardiology following * stress tests done today * could be secondary to ischemic demand * continue heparin until further evaluation * PT/PTT/INR and D-dimer WNL Subjective Date/time seen: 10/28/23 09:28 Interval history: Patient is a 63-year-old female with PMH of asthma and COPD admitted for shortness of breath x2-3 days. She was treated for a COPD exacerbation with superimposed pneumonia as well as NSTEMI. She underwent a stress test and was found to have a large, severe, non-reversible infarct involving the apical, the apical septal, apical anterior, apical lateral and apical inferior, mid anterior and mid posterior segments consistent with infarct. She will have an outpatient C and continue with medical management at this time. Interval history: 10/27: Mrs. Anguiano is seen at the bedside in no acute distress. She is up ambulating in her room without oxygen. She has had her echo completed. She states her breathing is back to baseline and she is eager to discharge home today. Labs and vitals reviewed. Patient is okay to discharge with oral antibiotics and steroids with PCP follow-up in the next week. She will also need follow-up with Cardiology for outpatient left heart catheterization and review of echocardiogram. Review of Systems Review of Systems: All systems reviewed & are unremarkable except as noted in HPI and below Exam Narrative: General: Chronically ill-appearing, well developed, well nourished, appears stated age. HEENT: normocephalic, atraumatic. Mucous membranes moist. EOMI, PERRLA, bilateral sclera anicteric, no conjunctival injection. Neck supple without JVD, lymphadenopathy, or bruit. Respiratory: clear to diminished, auscultation bilaterally. No rales/rhonic/wheezes. Cardiovascular: Regular rate and rhythm, normal S1-S2 upon auscultation. No murmurs, rubs, or clicks. PMI is nondisplaced, capillary re-fill less than 3 second. Abdomen: Soft, round, no pulsatile masses, non-distended and non-tender. No rebound, no guarding. No CVA tenderness, no hepatosplenomegaly. Bowel sounds present to all four quadrants. No high pitch or tinkling sounds, resonant to percussion. Extremities: No cyanosis, clubbing, or edema present. Pulses are palpable 2/2. Active ROM to all four extremities. Neuro: Alert and orientated x 4. PERRLA. Cranial nerves 2-12 intact without focal deficit. Skin: Warm, dry, and intact, without rash, erythema, or lesion. Lines: Incisions: Psych: pleasant, cooperative, normal speech, normal affect, no hallucinations, no dysarthri, anxious Objective Data Vital Signs Vital Signs: Vital Signs - 24 hr 10/27/23 10:00 10/27/23 12:00 10/27/23 13:40 Temperature 98.3 F Pulse Rate 120 H 141 H 91 Respiratory Rate 20 20 Blood Pressure 122/72 Pulse Oximetry 90 Oxygen Delivery Oxygen Flow Rate 10/27/23 13:59 10/27/23 12:00 10/27/23 14:00 Temperature Pulse Rate 94 108 H 94 Respiratory Rate 20 Blood Pressure Pulse Oximetry 94 Oxygen Delivery Oxygen Flow Rate 1 10/27/23 16:00 10/27/23 16:00 10/27/23 16:00 Temperature 98.3 F Pulse Rate 94 108 H 106 H Respiratory Rate 20 Blood Pressure 129/73 Pulse Oximetry 95 90 Oxygen Delivery Nasal Cannula Oxygen Flow Rate 1 10/27/23 18:00 10/27/23 19:51 10/27/23 21:11 Temperature 97.6 F Pulse Rate 108 H 122 H 88 Respiratory Rate 23 H 20 Blood Pressure 132/82 Pulse Oximetry 88 L Oxygen Delivery Oxygen Flow Rate 10/27/23 21:14 10/27/23 21:21 10/27/23 20:00 Temperature Pulse Rate 88 82 Respiratory Rate 20 Blood Pressure Pulse Oximetry 95 95 Oxygen Delivery Nasal Cannula Nasal Cannula Oxygen Flow Rate 2 2 10/27/23 20:00 10/28/23 00:04 10/28/23 00:00 Temperature 97.8 F Pulse Rate 122 H 95 Respiratory Rate 18 Blood Pressure 102/59 L Pulse Oximetry 98 98 Oxygen Delivery Nasal Cannula Oxygen Flow Rate 2 10/28/23 02:02 10/28/23 02:10 10/28/23 03:43 Temperature 97.8 F Pulse Rate 90 86 84 Respiratory Rate 20 20 19 Blood Pressure 120/69 Pulse Oximetry 94 Oxygen Delivery Oxygen Flow Rate 10/28/23 00:00 10/28/23 02:00 10/28/23 04:00 Temperature Pulse Rate 74 74 88 Respiratory Rate Blood Pressure Pulse Oximetry Oxygen Delivery Oxygen Flow Rate 10/28/23 04:00 10/28/23 05:45 10/28/23 07:51 Temperature Pulse Rate 75 90 Respiratory Rate 20 Blood Pressure Pulse Oximetry 94 Oxygen Delivery Nasal Cannula Oxygen Flow Rate 2 10/28/23 07:51 10/28/23 08:02 10/28/23 08:00 Temperature 98 F Pulse Rate 88 120 H Respiratory Rate 20 26 H Blood Pressure 133/70 Pulse Oximetry 95 95 Oxygen Delivery Nasal Cannula Oxygen Flow Rate 1 10/28/23 08:22 10/28/23 08:00 10/28/23 08:00 Temperature Pulse Rate 119 H 90 90 Respiratory Rate 19 Blood Pressure Pulse Oximetry 92 Oxygen Delivery Room Air Oxygen Flow Rate Intake/Output Intake/Output: Intake & Output 10/25/23 10/26/23 10/27/23 10/28/23 23:59 23:59 23:59 23:59 Intake Total 2708.9 1464.1 440 Balance 2708.9 1464.1 440 Meds/Results Medications: Active Medications Generic Name Dose Route Start Last Admin Trade Name Freq PRN Reason Stop Dose Admin Acetaminophen 650 mg 10/26/23 14:14 Acetaminophen 325 Mg Tablet PO Q4H PRN Mild Pain (1-3) or Fever Al Hydrox/Mg Hydrox/Simethicone 30 ml 10/26/23 14:14 Mag Hydrox/Al Hydrox/Simeth 30 Ml Udc PO QID PRN Dyspepsia Albuterol/Ipratropium 3 ml 10/26/23 20:00 10/28/23 07:49 Ipratropium 0.5 Mg/Albuterol Sulfate 2.5 Mg Ampul.Neb 3 Ml INHALATION 3 ml Q6HRT EMILY Administration Aspirin 81 mg 10/27/23 09:00 10/28/23 08:22 Aspirin 81 Mg Enteric Tablet PO 81 mg QAM EMILY Administration Atorvastatin Calcium 40 mg 10/27/23 09:00 10/28/23 08:22 Atorvastatin 40 Mg Tablet PO 40 mg DAILY EMILY Administration Docusate Sodium 100 mg 10/26/23 17:00 10/28/23 08:25 Docusate Sodium 100 Mg Capsule PO Not Given BID EMILY Enoxaparin Sodium 40 mg 10/28/23 09:00 10/28/23 08:24 Enoxaparin 40 Mg/0.4 Ml Syringe SUB-Q 40 mg DAILY EMILY Administration Ceftriaxone Sodium 1 gm in 50 mls @ 100 mls/hr 10/27/23 11:00 10/27/23 20:09 Rocephin 1 Gm/Ns 50 Ml IVPB Infused Q24H EMILY Infusion Doxycycline Hyclate 100 mg in 100 mls @ 100 mls/hr 10/26/23 21:00 10/28/23 08:24 Vibramycin 100 Mg/Ns 100 Ml IVPB 100 mls/hr Q12HR EMILY Administration Methylprednisolone Sodium Succinate 125 mg 10/26/23 14:25 10/28/23 05:47 Methylprednisolone Sod Succ 125 Mg Vial IV PUSH 125 mg Q6HR EMILY Administration Metoprolol Succinate 25 mg 10/26/23 15:40 10/28/23 08:22 Metoprolol Succinate Ext Rel 25 Mg Tabcr PO 25 mg QAM EMILY Administration Fluticasone/Salmeterol 2 puff 10/26/23 20:00 10/28/23 07:49 Fluticasone/Salmeterol 115-21 Mcg Inhaler 1 Puff INHALATION 2 puff Q12HRT EMILY Administration Umeclidinium [place] 1 puff 10/27/23 09:00 10/27/23 07:45 Umeclidinium [place] 62.5 Mcg Ellipta INHALATION 1 puff DAILY EMILY Administration Radiology Results: ITS Impressions Chest X-Ray 10/26/23 09:32 IMPRESSION: 1. Focal airspace opacity in the left lower lung zone which could represent atelectasis or pneumonia. Lexiscan Stress Test 10/27/23 13:20 IMPRESSION: 1. Large severe nonreversible infarct involving the apical, each of the periapical and the mid anterior and mid inferior segments. No reversible ischemia. 2. Left ventricular ejection fraction measuring 65%. Labs Labs: Laboratory Results - last 24 hr 10/27/23 10/27/23 10/28/23 10:10 17:50 04:43 WBC 11.8 H RBC 5.39 Hgb 17.5 H Hct 55.5 H MCV 103.0 H MCH 32.5 MCHC 31.5 L RDW 15.8 H Plt Count 221 MPV 10.3 APTT 51.2 H 32.8 Sodium 140 Potassium 3.9 Chloride 106 Carbon Dioxide 26 Anion Gap 8 BUN 25 H D Creatinine 0.90 Estim Creat Clear Calc 59 Estimated GFR > 60 Glucose 142 H Calcium 9.8 Quality VTE Prophylaxis VTE prophylaxis: pharmacologic ordered
--- NOTE | 2023-10-28 11:23 | PM.PNCARD ---
Progress Note: A&P Assessment and Plan (1) CAD (coronary artery disease): Code(s): I25.10 - Atherosclerotic heart disease of [place] coronary artery without angina pectoris Status: Acute Assessment and Plan: Nuclear stress test today showed an area of large severe nonreversible infarct involving the apical, the apical septal, apical anterior, apical lateral and apical inferior, mid anterior and mid posterior segments consistent with infarct. No reversible ischemia. I discussed the results of the test with her and her brother at the bedside this afternoon. Discussed the concept of coronary angiogram to better define her coronary anatomy. Discussed that this would be reasonable to do as an outpatient since she is asymptomatic from a cardiac standpoint. We also discussed the option of medical management. For now, will manage medically and she will discuss possible outpatient LHC with Dr. Downing in the office after discharge. Continue ASA, atorvastatin. Will order 2D echocardiogram with Doppler. Also p.r.n. nitroglycerin should be ordered upon discharge and follow-up with Dr. Downing (2) Elevated troponin: Code(s): R79.89 - Other specified abnormal findings of blood chemistry Status: Acute Assessment and Plan: Elevated troponin in the setting of hypoxia secondary to COPD, pneumonia, and in the setting of underlying coronary artery disease. Plan as above. Plan Subjective Date/time seen: 10/28/23 11:23 Interval history: Cardiology follow up for NSTEMI Date of service 10/27/2023: Feeling much better today. Still on 2L O2. She denies any chest pain. I am seeing her in the cardiac stress lab during her lexiscan. She had transient shortness of breath and a couple of PVC's during the test. She is eager to go home. Date of service 10/28/2023: Feels the same and still anxious to go home. No chest pain. No shortness of breath Review of Systems Constitutional: Constitutional: Reports no additional constitutional complaints Eyes: Eyes: Reports no additional eye complaints ENT: Reports system reviewed and no additional complaints, except as documented Cardiovascular: Cardiovascular: Reports no additional cardiovascular complaints and Reports dyspnea Respiratory: Respiratory: Reports as per HPI and Reports dyspnea Gastrointestinal: Gastrointestinal: Reports no additional gastrointestinal complaints Musculoskeletal: Musculoskeletal: Reports no additional musculoskeletal complaints Integumentary/Breasts: Skin/Breast: Reports system reviewed and no additional complaints, except as docu Neurologic: Reports system reviewed and no additional complaints, except as documented Endocrine: Endocrine: Reports no additional endocrine complaints Hematologic/Lymphatic: Hematologic/Lymphatic: Reports no additional hematologic/lymphatic complaints Allergic/Immunologic: Allergic/Immunologic: Reports no additional allergic/immunologic complaints Exam Const: General: comfortable and no acute distress Other: pleasant barrel-chested, [place] faced 63-year-old lady essentially comfortable at this time reporting no ongoing symptoms HENMT: Mouth: Yes moist mucous membranes Eyes: Sclera: sclerae normal Neck: Neck: supple Other: carotid upstrokes are intact bilaterally without significant bruits Resp: Other: patient has somewhat prolonged expiratory phase no active wheezing breath sounds are markedly diminished in both lung veloz Cardio: Rate: regular rate and tachycardic Rhythm: regular rhythm Other: no audible murmur or gallop GI: Auscultation: normal bowel sounds Skin: General skin exam: normal color Neuro: Other: alert and oriented x3 Extrem: Other: no edema adequate perfusion Objective Data Vital Signs Vital Signs: Vital Signs - 24 hr 10/27/23 12:00 10/27/23 13:40 10/27/23 13:59 Temperature 36.8 C Pulse Rate 141 H 91 94 Pulse Rate [With Activity During Therapy Session] Respiratory Rate 20 20 20 Blood Pressure 122/72 Pulse Oximetry 90 Pulse Oximetry [With Activity During Therapy Session] Oxygen Delivery Oxygen Flow Rate 10/27/23 12:00 10/27/23 14:00 10/27/23 16:00 Temperature Pulse Rate 108 H 94 94 Pulse Rate [With Activity During Therapy Session] Respiratory Rate Blood Pressure Pulse Oximetry 94 Pulse Oximetry [With Activity During Therapy Session] Oxygen Delivery Oxygen Flow Rate 1 10/27/23 16:00 10/27/23 16:00 10/27/23 18:00 Temperature 36.8 C Pulse Rate 108 H 106 H 108 H Pulse Rate [With Activity During Therapy Session] Respiratory Rate 20 Blood Pressure 129/73 Pulse Oximetry 95 90 Pulse Oximetry [With Activity During Therapy Session] Oxygen Delivery Nasal Cannula Oxygen Flow Rate 1 10/27/23 19:51 10/27/23 21:11 10/27/23 21:14 Temperature 36.4 C Pulse Rate 122 H 88 88 Pulse Rate [With Activity During Therapy Session] Respiratory Rate 23 H 20 Blood Pressure 132/82 Pulse Oximetry 88 L 95 Pulse Oximetry [With Activity During Therapy Session] Oxygen Delivery Nasal Cannula Oxygen Flow Rate 2 10/27/23 21:21 10/27/23 20:00 10/27/23 20:00 Temperature Pulse Rate 82 122 H Pulse Rate [With Activity During Therapy Session] Respiratory Rate 20 Blood Pressure Pulse Oximetry 95 Pulse Oximetry [With Activity During Therapy Session] Oxygen Delivery Nasal Cannula Oxygen Flow Rate 2 10/28/23 00:04 10/28/23 00:00 10/28/23 02:02 Temperature 36.6 C Pulse Rate 95 90 Pulse Rate [With Activity During Therapy Session] Respiratory Rate 18 20 Blood Pressure 102/59 L Pulse Oximetry 98 98 Pulse Oximetry [With Activity During Therapy Session] Oxygen Delivery Nasal Cannula Oxygen Flow Rate 2 10/28/23 02:10 10/28/23 03:43 10/28/23 00:00 Temperature 36.6 C Pulse Rate 86 84 74 Pulse Rate [With Activity During Therapy Session] Respiratory Rate 20 19 Blood Pressure 120/69 Pulse Oximetry 94 Pulse Oximetry [With Activity During Therapy Session] Oxygen Delivery Oxygen Flow Rate 10/28/23 02:00 10/28/23 04:00 10/28/23 04:00 Temperature Pulse Rate 74 88 Pulse Rate [With Activity During Therapy Session] Respiratory Rate Blood Pressure Pulse Oximetry 94 Pulse Oximetry [With Activity During Therapy Session] Oxygen Delivery Nasal Cannula Oxygen Flow Rate 2 10/28/23 05:45 10/28/23 07:51 10/28/23 07:51 Temperature Pulse Rate 75 90 Pulse Rate [With Activity During Therapy Session] Respiratory Rate 20 Blood Pressure Pulse Oximetry 95 Pulse Oximetry [With Activity During Therapy Session] Oxygen Delivery Nasal Cannula Oxygen Flow Rate 1 10/28/23 08:02 10/28/23 08:00 10/28/23 08:22 Temperature 36.6 C Pulse Rate 88 120 H 119 H Pulse Rate [With Activity During Therapy Session] Respiratory Rate 20 26 H Blood Pressure 133/70 Pulse Oximetry 95 Pulse Oximetry [With Activity During Therapy Session] Oxygen Delivery Oxygen Flow Rate 10/28/23 08:00 10/28/23 08:00 10/28/23 10:07 Temperature Pulse Rate 90 90 Pulse Rate [With Activity During Therapy Session] 140 H Respiratory Rate 19 Blood Pressure Pulse Oximetry 92 Pulse Oximetry [With Activity During Therapy Session] 94 Oxygen Delivery Room Air Room Air Oxygen Flow Rate Intake/Output Intake/Output: Intake & Output 10/25/23 10/26/23 10/27/23 10/28/23 23:59 23:59 23:59 23:59 Intake Total 2708.9 1464.1 440 Balance 2708.9 1464.1 440 Meds/Results Medications: Active Medications Generic Name Dose Route Start Last Admin Trade Name Freq PRN Reason Stop Dose Admin Acetaminophen 650 mg 10/26/23 14:14 Acetaminophen 325 Mg Tablet PO Q4H PRN Mild Pain (1-3) or Fever Al Hydrox/Mg Hydrox/Simethicone 30 ml 10/26/23 14:14 Mag Hydrox/Al Hydrox/Simeth 30 Ml Udc PO QID PRN Dyspepsia Albuterol/Ipratropium 3 ml 10/26/23 20:00 10/28/23 07:49 Ipratropium 0.5 Mg/Albuterol Sulfate 2.5 Mg Ampul.Neb 3 Ml INHALATION 3 ml Q6HRT EMILY Administration Aspirin 81 mg 10/27/23 09:00 10/28/23 08:22 Aspirin 81 Mg Enteric Tablet PO 81 mg QAM EMILY Administration Atorvastatin Calcium 40 mg 10/27/23 09:00 10/28/23 08:22 Atorvastatin 40 Mg Tablet PO 40 mg DAILY EMILY Administration Docusate Sodium 100 mg 10/26/23 17:00 10/28/23 08:25 Docusate Sodium 100 Mg Capsule PO Not Given BID EMILY Enoxaparin Sodium 40 mg 10/28/23 09:00 10/28/23 08:24 Enoxaparin 40 Mg/0.4 Ml Syringe SUB-Q 40 mg DAILY EMILY Administration Ceftriaxone Sodium 1 gm in 50 mls @ 100 mls/hr 10/27/23 11:00 10/27/23 20:09 Rocephin 1 Gm/Ns 50 Ml IVPB Infused Q24H EMILY Infusion Doxycycline Hyclate 100 mg in 100 mls @ 100 mls/hr 10/26/23 21:00 10/28/23 08:24 Vibramycin 100 Mg/Ns 100 Ml IVPB 100 mls/hr Q12HR EMILY Administration Methylprednisolone Sodium Succinate 125 mg 10/26/23 14:25 10/28/23 05:47 Methylprednisolone Sod Succ 125 Mg Vial IV PUSH 125 mg Q6HR EMILY Administration Metoprolol Succinate 25 mg 10/26/23 15:40 10/28/23 08:22 Metoprolol Succinate Ext Rel 25 Mg Tabcr PO 25 mg QAM EMILY Administration Fluticasone/Salmeterol 2 puff 10/26/23 20:00 10/28/23 07:49 Fluticasone/Salmeterol 115-21 Mcg Inhaler 1 Puff INHALATION 2 puff Q12HRT EMILY Administration Umeclidinium [place] 1 puff 10/27/23 09:00 10/27/23 07:45 Umeclidinium [place] 62.5 Mcg Ellipta INHALATION 1 puff DAILY EMILY Administration Radiology Results: ITS Impressions Chest X-Ray 10/26/23 09:32 IMPRESSION: 1. Focal airspace opacity in the left lower lung zone which could represent atelectasis or pneumonia. Lexiscan Stress Test 10/27/23 13:20 IMPRESSION: 1. Large severe nonreversible infarct involving the apical, each of the periapical and the mid anterior and mid inferior segments. No reversible ischemia. 2. Left ventricular ejection fraction measuring 65%. Labs Labs: Laboratory Results - last 24 hr 10/27/23 10/28/23 17:50 04:43 WBC 11.8 H RBC 5.39 Hgb 17.5 H Hct 55.5 H MCV 103.0 H MCH 32.5 MCHC 31.5 L RDW 15.8 H Plt Count 221 MPV 10.3 APTT 32.8 Sodium 140 Potassium 3.9 Chloride 106 Carbon Dioxide 26 Anion Gap 8 BUN 25 H D Creatinine 0.90 Estim Creat Clear Calc 59 Estimated GFR > 60 Glucose 142 H Calcium 9.8
--- NOTE | 2023-10-28 11:28 | HOMEO2EVAL ---
Evaluation was performed at [facility] Home Oxygen Evaluation RC: Home Oxygen (O2) Evaluation Start: 10/28/23 09:38 Freq: ONCE Status: Active Protocol: RPE Activity Type Activity Date Activity User E-sign Co-sign Detail Recorded Client Recorded Date Recorded By Document 10/28/23 11:00 DJO [id number] 10/28/23 11:28 DJO Document 10/28/23 11:05 DJO [id number] 10/28/23 11:28 DJO Document 10/28/23 11:15 [email or web address] [email or web address] 10/28/23 11:28 DJO 10/28/23 10/28/23 10/28/23 11:00 11:05 11:15 Home O2 Evaluation [Oxygen] -Test Phase Resting Exercise Resting -Oxygen Delivery Room Air Room Air Room Air [Pulse Oximetry] -Pulse Oximetry (90-100 %) 96 92 95 [Pulse Rate] -Pulse Rate (60-100 beats/min) 95 110 H 94 [Evaluation] -Activity Tolerance Good [Exercise] -Ambulation Distance (feet) 500 -Ambulation Distance (meters) 152.39 [Charges] -Evaluation Charges O2 Evaluation by Pulmonary
--- NOTE | 2023-10-28 11:29 | PCRCNOTE ---
HOME O2 EVAL COMPLETE, NO REQUIREMENTS
[2023-10-28] MEDS: PERFLUTREN LIPID MICROSPHERES 1.5 ML VIAL DILUTED TO 10 ML TOTAL VOLUME IV PUSH (13:15)
--- NOTE | 2023-10-28 13:37 | IVDEFINITY ---
Prior to administration of IV Definity the patient was educated on the risks and benefits of the imaging enhancing agent including potential adverse side effects. The patient verbalized understanding. Allergies were verified. No exclusion criteria were identified and at least one of the following inclusion criteria were met: 1) physician request, 2) patient technically difficult to image (per the [place] [employer]ocardi[employer] guidelines of two or more segments not discernable within the apical view), or 3) questionable left ventricular function. ?
--- NOTE | 2023-10-29 20:12 | P.DS_ITS ---
DS: Admitting Diagnosis Discharge Date 10/28/23 Admitting Diagnosis SOB DS: Discharge Diagnosis Discharge Diagnosis (1) Community acquired pneumonia: Qualifiers: Laterality: left Lung location: lower lobe of lung Qualified Code(s): J18.9 - Pneumonia, unspecified organism Code(s): J18.9 - Pneumonia, unspecified organism Status: Acute Assessment and Plan: * CXR showed focal airspace opacity in the left lower lung zone which could represent atelectasis or pneumonia. * given COPD dx, will treat with Rocephin and doxycycline as her QTC is elongate d * supplemental O2 - work to wean; may need O2 eval prior to discharge * Duonebs * IV Solumedrol Q6 * BC pending (2) Acute exacerbation of chronic obstructive pulmonary disease: Code(s): J44.1 - Chronic obstructive pulmonary disease with (acute) exacerbation Status: Acute Assessment and Plan: * continue at home inhalers * supplemental O2 - work to wean * Duonebs * IV Solumedrol Q6 * ABG showed low pO2 at 64.4 L (3) Elevated troponin: Code(s): R79.89 - Other specified abnormal findings of blood chemistry Status: Acute Assessment and Plan: * Trops 0.4 -> 1.48 -> 1.86 * Cardiology following * stress tests done today * could be secondary to ischemic demand * continue heparin until further evaluation * PT/PTT/INR and D-dimer WNL DS: Summary Hospital Course Reason for hospitalization: COPD exacerbation with superimposed pneumonia and NSTEMI Hospital Course: Patient is a 63-year-old female with PMH of asthma and COPD admitted for shortness of breath x2-3 days. She was treated for a COPD exacerbation with superimposed pneumonia as well as NSTEMI. She underwent a stress test and was found to have a large, severe, non-reversible infarct involving the apical, the apical septal, apical anterior, apical lateral and apical inferior, mid anterior and mid posterior segments consistent with infarct. She will have an outpatient C and continue with medical management at this time. Interval history: 10/27:? Mrs. Anguiano is seen at the bedside in no acute distress.? She is up ambulating in her room without oxygen.? She has had her echo completed.? She s tates her breathing is back to baseline and she is eager to discharge home today.? Labs and vitals reviewed.? Patient is okay to discharge with oral antibiotics and steroids with PCP follow-up in the next week.? She will also need follow-up with Cardiology for outpatient left heart catheterization and review of echocardiogram. Time Spent with Patient Time attestation: Total time spent providing and/or coordinating discharge services: 46 Exam Narrative: General: Chronically ill-appearing, well developed, well nourished, appears stated age. HEENT: normocephalic, atraumatic. Mucous membranes moist. EOMI, PERRLA, bilateral sclera anicteric, no conjunctival injection. Neck supple without JVD, lymphadenopathy, or bruit. Respiratory: clear to diminished, auscultation bilaterally. No rales/rhonic/wheezes. Cardiovascular: Regular rate and rhythm, normal S1-S2 upon auscultation. No murmurs, rubs, or clicks. PMI is nondisplaced, capillary re-fill less than 3 second. Abdomen: Soft, round, no pulsatile masses, non-distended and non-tender. No rebound, no guarding. No CVA tenderness, no hepatosplenomegaly. Bowel sounds present to all four quadrants. No high pitch or tinkling sounds, resonant to percussion. Extremities: No cyanosis, clubbing, or edema present. Pulses are palpable 2/2. Active ROM to all four extremities. Neuro: Alert and orientated x 4. PERRLA. Cranial nerves 2-12 intact without focal deficit. Skin: Warm, dry, and intact, without rash, erythema, or lesion. Lines: Incisions: Psych: pleasant, cooperative, normal speech, normal affect, no hallucinations, no dysarthri, anxious DS: Data Data Completed and Pending Labs on day of discharge: Preliminary micro results at discharge 10/26/23 10:46 Blood Culture - Preliminary Blood 10/26/23 10:43 Blood Culture - Preliminary Blood Discharge Plan Discharge Attending physician on discharge: Jory Weeks Consulting providers: Veronika Kim; Parish Downing; Cooper Mathias; Serjio Argueta; Tayla Chavez; Moris Garrison Discharging Clinician: Mayela Oliver Anticipated Discharge Date/Time: 10/28/23 13:50 Patient Disposition: Home, Self-Care Activity: may shower Diet: heart healthy Discharge Instructions: You were admitted after presenting to the ER with complaints of shortness of breath. Your found have a COPD exacerbation and likely superimposed pneumonia. There also concerns for coronary arterial disease and your recent stress test showed nonreversible ischemia. You will need to have a follow-up with Terrence coronado to discuss results of her echocardiogram as well as scheduling a left sided heart catheterization to further investigate for coronary artery disease. You should also follow-up with your primary care provider in the next 1 week given recent hospitalization for COPD exacerbation. Please continue your regularly prescribed medications. Please monitor for increased shortness of breath, chest pain, headache, dizziness, jaw pain, left- sided arm pain, or back pain. Should you experience chest pain you should take nitroglycerin under your tongue call 911. Do not attempt to drive yourself to the hospital. Please contact your primary care provider should you experience worsening symptoms of your COPD. Signs and symptoms of a COPD exacerbation include, -More coughing -Changes to the sputum (mucus or phlegm) you cough up which may include color, thickness, or amount -Difficulty sleeping -Groves of breath or having a hard time taking a deep breath -Wheezing or noisy breathing -More fatigue or tiredness Please continue to use your incentive spirometry device to help make sure you are taking deep breaths. Please finish taking your antibiotics regardless of how you are feeling. Stopping antibiotics early can lead to a relapse of your infection as well as promotion of antibiotic resistant organisms. You can take over the counter tylenol for body aches and fever but do not take more than 4000 mg a daily. Patient Instructions: Antibiotic Form, Heart Attack (DC), How to Stop Smoking (GEN), Heart Healthy Diet (DC), COPD (Chronic Obstructive Pulmonary Disease) ( DC), Pneumonia (DC) Stand Alone Forms: General Discharge Information Follow-up/Referrals: Parish Downing MD [Physician] - UNKNOWN,DOCTOR [Primary Care Provider] - Discharge Medications: New atorvastatin 40 mg Tablet 40 mg PO DAILY Qty: 60 0RF aspirin 81 mg Tablet,Delayed Release (Dr/Ec) 81 mg PO QAM Qty: 60 0RF nitroglycerin [Nitrostat] 0.4 mg Tablet, Sublingual 0.4 mg sublingual Q5MIN PRN (Reason: Chest Pain) Qty: 10 0RF metoprolol succinate [Toprol XL] 25 mg Tablet Extended Release 24 Hr 25 mg PO QAM Qty: 60 0RF amoxicillin-pot clavulanate 875-125 mg tablet 1 tablet PO Q12H Qty: 5 0RF Rx Instructions: Start tonight 10/27 taking 1 tablet. 18 take 1 tablet by mouth twice a day. doxycycline hyclate 150 mg tablet 150 mg PO Q12H Qty: 5 0RF Rx Instructions: Take tonight 4. Then 10/28 take 1 tablet by mouth twice a day. prednisone 50 mg tablet 50 mg PO DAILY Qty: 4 0RF Continued albuterol sulfate 90 mcg/actuation HFA aerosol inhaler 2 puff INHALATION TID fluticasone propion-salmeterol [Advair HFA] 115-21 mcg/actuation HFA aerosol inhaler 2 puff INHALATION BID Incruse Ellipta 62.5 mcg/actuation blister with device 1 inh INHALATION DAILY Other Ambulatory Orders: Pulmonary Rehabilitation (Routine) Timeframe: 1 Week Location: Determined by Patient Ordered By: Mayela Oliver Date of admission: 10/26/23 12:39 Primary Care Provider: UNKNOWN,DOCTOR Admitting Provider: Crow Abernathy Attending physician on admission: Mayela Oliver Condition: Improved Quality VTE Prophylaxis VTE prophylaxis: pharmacologic ordered
== END 2023-10-28 15:11 | disposition home or self-care (01) | DRG 280 ==
LOC: ANHED 13:05 → ANHIMU 13:22
PROVIDERS: Internal Medicine; Nurse Practitioner; Admitting Provider Internal Medicine; Emergency Provider Student in an Organized Health Care Education/Training Program; Visit Provider Nurse Practitioner Acute Care
DX: I21.4 Non-ST elevation (NSTEMI) myocardial infarction (principal); J18.9 Pneumonia, unspecified organism; J44.1 Chronic obstructive pulmonary disease with (acute) exacerbation; J44.0 Chronic obstructive pulmonary disease with (acute) lower respiratory infection; F17.210 Nicotine dependence, cigarettes, uncomplicated; Z20.822 Contact with and (suspected) exposure to COVID-19
CPT/HCPCS: 36415; 36600; 71045; 78452; 80048; 80053; 80061; 82805; 83036; 83605; 83880; 84484; 85025; 85027; 85380; 85610; 85730; 87040; 87637; 93005; 93017; 94618; 94640; 96365; 96367; 97161; 99291; A9270; A9502; C8929; J0696; J1644; J1650; J2060; J2785; J2919; J7030; Q9957

== ENCOUNTER 2023-11-17 12:02 | Observation (INO) | payer OTHER, SELFPAY ==
[2023-11-17] VITALS (9 sets, daily range): BP systolic 99–176; BP diastolic 53–102; PULSE 98–117; RESP 14–22; TEMP 36.6–36.8; O2SAT 90–94
--- NOTE | ~2023-11-17 | XR_ITS ---
EXAMINATION: XR chest 2V DATE: 11/17/2023 14:17 INDICATION: Shortness of breath, cough and congestion TECHNIQUE: PA and lateral views of the chest were obtained. COMPARISON: Chest radiograph dated 10/26/2023 FINDINGS: Again seen is an opacity obscuring course of the left heart border which on the lateral radiograph ap pears to correspond to a prominent left paracardial fat pad. Mild linear discoid atelectasis/scarring anteriorly in the midlung zone either in the right middle lobe or lingula. No other airspace opaciti es, pulmonary edema, pleural effusion or pneumothorax. Heart size is normal. Age-indeterminate midtho racic burst fracture, likely T6, with 80% anterior vertebral body height loss and 30% posterior verte bral body height loss. Likely cholecystectomy clips in the upper abdomen. IMPRESSION: 1. Mild linear discoid atelectasis in the anterior right middle lobe or lingula. No other acute cardi opulmonary disease. 2. Age-indeterminate T6 burst fracture. Reviewed, dictated and finalized at location A. IMPRESSION: 1. Mild linear discoid atelectasis in the anterior right middle lobe or lingula . No other acute cardiopulmonary disease. 2. Age-indeterminate T6 burst fracture.
--- NOTE | 2023-11-17 12:05 | ECG_ITS ---
SEE SCANNED COPY FOR CONFIRMED REPORT. MTDD
--- NOTE | 2023-11-17 12:26 | ED.SOB ---
HPI - SOB/Dyspnea General Chief Complaint: Shortness of Breath/Dyspnea Stated Complaint: trouble breathing Time Seen by Provider: 11/17/23 12:26 History of Present Illness HPI Narrative: Patient is a 63-year-old female with history of COPD, asthma, CAD here with shortness of breath. Patient states that she was discharged from this hospital about 3 weeks ago. She had been feeling pretty good until yesterday when she started having significant shortness of breath again. She notes that she gets short of breath and then this seems to trigger her anxiety and last night she was up all night unable to breathe and feeling very anxious. She denies any chest pain. She notes that this feels very similar to the beginning of her normal COPD exacerbations which seemed to get triggered this time of year due to weather. In the past she was able to contact her primary care doctor would prescribe her with a short course of steroids and this would typically improve her symptoms. She notes she attempted to contact her primary care doctor multiple times, they were unable to get her into the office until the end of next month. Of note, she does States that she hit her arm on something a few days ago and caused a skin tear. She has noted some redness to this area over her for right forearm. She has been applying peroxide and topical antibiotic ointment and wearing a dressing at night. She denies any discharge from the wound. She denies any fever or chills. She does note some localized pain to that area. She is unsure of when her last tetanus shot was. Related Data Home Medications Medication Instructions Recorded Confirmed albuterol sulfate 90 mcg/actuation 2 puff inhalation TID 10/26/23 10/26/23 aerosol inhaler fluticasone propionate 115 2 puff inhalation BID 10/26/23 10/26/23 mcg-salmeterol 21 mcg/actuation HFA inhaler (Advair HFA) umeclidinium 62.5 mcg/actuation 1 inh inhalation DAILY 10/26/23 10/26/23 blister powder for inhalation (Incruse Ellipta) Allergies Allergy/AdvReac Type Severity Reaction Status Date / Time codeine AdvReac Itching Verified 10/26/23 08:15 Review of Systems Review of Systems: All systems reviewed & are unremarkable except as noted in HPI and below PMFSH Family History Family History Mother Cerebrovascular accident Sibling FH: CABG (coronary artery bypass surgery) Father Stented coronary artery Social History Social History Smoking packs per day: 1 Smoking cigarettes per day: 20.0 Years smoked: 45 Smoking pack-years: 45.00 Smoking status: Current every day smoker Tobacco type: cigarettes Alcohol intake: current Drinks per week: 3 Substance use: never Do You Feel Safe in your Home?: Yes Lack of Transportation: No Lack of Food: Never True Current Housing: I Have Housing Concerned About Future Housing: No Difficulty Paying Gas/Electric Bills: No Difficulty Paying for Meds: No Currently Unemployed: No Education: High School Diploma/GED Difficulty w/ Childcare or Family Care: No Spiritual care concerns: No Exam Narrative: GENERAL: Well-appearing, well-nourished, and in no acute distress. HEAD: Normocephalic, atraumatic. EYES: PERRLA and EOMI. ENT: Nares clear. Mucous membranes moist. NECK: Supple. CHEST: Faint wheeze bilaterally. No respiratory distress. Speaking in full unlabored sentences. HEART: Regular rate and rhythm. Normal peripheral pulses. ABDOMEN: Soft, nontender, nondistended. EXTREMITIES: Normal range of motion. No edema. SKIN: Warm, dry, no rash. She has a 3 x 4 cm v-shaped healing skin tear present. Some mild surrounding erythema and warmth. No obvious discharge from the wound. NEURO: No focal deficits. Alert and oriented x3. PSYCH: Normal mood and affect. Course Course Emergency Course: Chart rev
[2023-11-17 12:27] LABS: Basophils Absolute Auto 0.1 K/mm3 (0.0-0.1); Basophils Percent Auto 0.6 % (0.2-1.2); Eosinophils Absolute Auto 0.2 K/mm3 (0-0.3); Eosinophils Percent Auto 2.9 % (0-4.4); Hematocrit 52.3 % (37.0-47.0); Hemoglobin 17.4 g/dL (12.0-15.0); Immature Granulocyte Absolute 0.02 K/mm3 (0.00-0.031); Immature Granulocyte Percent A 0.3 % (0-0.5); Lymphocytes Absolute Auto 1.99 K/mm3 (0.9-3.2); Lymphocytes Percent Auto 25.3 % (18.3-44.2); Mean Corpuscular HGB Conc 33.3 g/dl (32-36); Mean Corpuscular Hemoglobin 32.8 pg (26-34); Mean Corpuscular Volume 98.7 fl (80-100); Mean Platelet Volume 9.9 fl (7.4-10.4); Monocytes Absolute Auto 0.5 K/mm3 (0.1-0.6); Monocytes Percent Auto 6.7 % (2.6-8.5); Neutrophils Percent Auto 64.2 % (45.5-73.1); Platelet Count Result 228 k/mm3 (150-375); Red Cell Distribution Width 14.2 % (11.5-14.5); White Blood Count 7.9 K/mm3 (4.5-10.0)
[2023-11-17 12:46] LABS: Alanine Aminotransferase 23 U/L (6-35); Albumin Level 4.6 g/dL (3.5-5.1); Alkaline Phosphatase 86 U/L (38-126); Anion Gap 7 mmol/L (4-12); Aspartate Amino Transferase 26 U/L (14-36); Bilirubin,Total 0.8 mg/dL (0.2-1.3); Blood Urea Nitrogen 6 mg/dL (7-17); Calcium 9.7 mg/dL (8.4-10.2); Carbon Dioxide 28 mmol/L (22-30); Chloride 104 mmol/L (98-107); Estimated CRCL calculation 76 ml/min; Estimated Glomerular Filt Rate > 60; Glucose 108 mg/dL (65-110); Potassium 3.5 mmol/L (3.4-5.0); Sodium 139 mmol/L (137-145)
[2023-11-17] MEDS: ALBUTEROL SULFATE NEB 2.5 MG/3 ML INH 15 MG INHALATION (12:54)
[2023-11-17] MEDS: IPRATROPIUM BR 0.02% INH SOLN 0.5 MG/2.5 ML VIAL 1.5 MG INHALATION (12:54)
[2023-11-17 12:56] LABS: INR 0.9; Prothrombin Time 12.7 Seconds (11.1-14.7)
[2023-11-17 12:57] LABS: Partial Thromboplastin Time 27.7 Seconds (22.3-36.8)
[2023-11-17 12:58] LABS: Magnesium 1.7 mg/dL (1.6-2.3)
[2023-11-17 13:02] LABS: NT Pro B Type Natriuretic Pept 2370 pg/mL (19.9-100); Troponin I < 0.012 ng/mL (0.000-0.034)
[2023-11-17] MEDS: DOXYCYCLINE HYCLATE 100 MG TABLET PO ×3 (13:08→20:09)
[2023-11-17] MEDS: predniSONE 20 MG TABLET 40 MG PO (13:08)
[2023-11-17] MEDS: TETANUS,DIPHTHERIA,AC PERTUSSIS ADULT (0.5 ML) BOOSTRIX IM (13:08)
[2023-11-17 13:23] LABS: D Dimer 0.42 ug/mL (<0.48)
[2023-11-17 13:28] LABS: Influenza A QL RT-PCR Negative (Negative); Influenza B QL RT-PCR Negative (Negative); RSV RNA, RT-PCR Negative (Negative); SARS-CoV-2 RNA PCR Negative (Negative)
--- NOTE | 2023-11-17 16:00 | PC.NURSE ---
Ambulated pt on room air pulse ox - Pulse ox ranged between 86-88.
[2023-11-17] MEDS: LORazepam INJ (*CRX) 2 MG/ML VIAL 1 MG IV PUSH (17:18)
--- NOTE | 2023-11-17 17:40 | ADMGEN ---
This patient, Minnie Anguiano, was admitted to Medical Room 242-. Patient/family oriented to hospital policies and general routines including ID bracelet, bed and alarms, visiting hours, pain management, procedures, bathroom and other care routines, personal items, smoking policy, room service/diet, and visiting hours. Information on how to activate the Rapid Response Team has been discussed. Patient/Family are encouraged to report perceived risks to care and to ask questions if they do not understand what they are told or what they should do.
--- NOTE | 2023-11-17 19:04 | PM.IMHP ---
H&P: HPI History of Present Illness Date/Time: 11/17/23 19:45 Chief Complaint: Shortness of breath. Narrative: This is a pleasant 63-year-old female smoker with chronic obstructive pulmonary disease and coronary artery disease who presented to the emergency department for evaluation of shortness of breath. The patient provides the following history. She was recently admitted to the hospital several weeks ago with acute COPD exacerbation and pneumonia. Troponins were elevated during that stay and a nuclear stress test showed a large severe nonreversible infarct for which she was started on medical management. She felt much better on discharge and was asymptomatic with regards to the coronary artery disease with plans for possible outpatient left heart catheterization. In any event, she endorses increasing shortness of breath and wheezing since yesterday which she attributes to the weather changes this time of year. Her shortness of breath triggers her anxiety which in turn is makes her feel more short of breath. She phoned her doctor and was unable to get an appointment and she came to the ED. also of note she reports sustain a skin tear on her right forearm several days ago for which she has been applying peroxide and topical antibiotic ointment although the area has become a bit swollen and red. She denies fever, chills, sweats, headache, sinus congestion, sore throat, chest and pleuritic pain, nausea, vomiting, and calf pain. In the ED: She was afebrile on arrival with an SpO2 in the 90s on room air. She was hypoxic with an SpO2 of 86% with ambulation. Labs were significant for a WBC count of 7.9, hemoglobin 17.4, hematocrit 52.3%, D-dimer 0.42, proBNP 2370, troponin less than 0.012. She tested negative for influenza, RSV, and COVID. Chest x-ray showed mild linear discoid atelectasis and age-indeterminate T6 burst fracture (denies back pain). She was given a nebulizer treatment and a dose of prednisone and is being admitted in this setting for further treatment. She has also been started on doxycycline for what appears to be developing cellulitis at a skin tear on her forearm and she also received a tetanus booster. Review of Systems Review of Systems: 12 systems were reviewed and are negative except for as per HPI. [facility] Past Medical History Medical History (Updated 11/17/23 @ 23:30 by Anne Marie Alvarenga PA-C) Chronic obstructive pulmonary disease Coronary artery disease (10/2023) Nuclear stress test showed a large, severe non reversible infarcts including multiple meyers of the apex and mid anterior and mid posterior segments consistent with infarct with no reversible ischemia. Tobacco abuse Surgical History Surgical History (Updated 11/17/23 @ 19:12 by Anne Marie Alvarenga PA-C) History of section Family History Family History Mother Cerebrovascular accident Sibling FH: CABG (coronary artery bypass surgery) Father Stented coronary artery Social History Social History (Updated 11/17/23 @ 19:13 by Anne Marie Alvarenga PA-C) Social History: Surrogate medical decision maker: Meghan Babcock, daughter. Code status: Full code. Smoking packs per day: 1 Smoking cigarettes per day: 20.0 Years smoked: 47 Smoking pack-years: 47.00 Smoking status: Current every day smoker Tobacco type: cigarettes Second hand tobacco smoke exposure: Yes Alcohol intake: current Drinks per week: 12 Substance use: never Do You Feel Safe in your Home?: Yes Lack of Transportation: No Lack of Food: Never True Current Housing: I Have Housing Concerned About Future Housing: No Difficulty Paying Gas/Electric Bills: No Difficulty Paying for Meds: No Currently Unemployed: No Education: High School Diploma/GED Difficulty w/ Childcare or Family Care: No Spiritual care concerns: No Meds Home Medications and Allergies Home Medications Medicatio
[2023-11-17] MEDS: IPRATROPIUM 0.5 MG/ALBUTEROL SULFATE 2.5 MG AMPUL.NEB 3 ML INHALATION (21:00)
[2023-11-17] MEDS: FLUTICASONE/SALMETEROL 115-21 MCG INHALER 1 PUFF 2 PUFF INHALATION (21:00)
[2023-11-18] VITALS (17 sets, daily range): BP systolic 114–132; BP diastolic 60–75; PULSE 95–128; RESP 17–22; TEMP 36.4–36.9; O2SAT 84–95
[2023-11-18] MEDS: IPRATROPIUM 0.5 MG/ALBUTEROL SULFATE 2.5 MG AMPUL.NEB 3 ML INHALATION ×3 (02:24→13:11)
[2023-11-18 05:27] LABS: Hematocrit 49.9 % (37.0-47.0); Hemoglobin 15.9 g/dL (12.0-15.0); Mean Corpuscular HGB Conc 31.9 g/dl (32-36); Mean Corpuscular Hemoglobin 32.1 pg (26-34); Mean Corpuscular Volume 100.8 fl (80-100); Mean Platelet Volume 10.2 fl (7.4-10.4); Platelet Count Result 223 k/mm3 (150-375); Red Blood Count 4.95 M/mm3 (4.2-5.4)
[2023-11-18 05:41] LABS: Anion Gap 9 mmol/L (4-12); Blood Urea Nitrogen 12 mg/dL (7-17); Calcium 9.6 mg/dL (8.4-10.2); Carbon Dioxide 27 mmol/L (22-30); Chloride 103 mmol/L (98-107); Estimated CRCL calculation 67 ml/min; Estimated Glomerular Filt Rate > 60; Glucose 129 mg/dL (65-110); Magnesium 1.8 mg/dL (1.6-2.3); Sodium 139 mmol/L (137-145)
[2023-11-18] MEDS: FLUTICASONE/SALMETEROL 115-21 MCG INHALER 1 PUFF 2 PUFF INHALATION (07:14)
--- NOTE | 2023-11-18 07:26 | PM.IMPN ---
Progress Note: A&P Assessment and Plan (1) Acute exacerbation of chronic obstructive pulmonary disease: Code(s): J44.1 - Chronic obstructive pulmonary disease with (acute) exacerbation Status: Acute (2) Polycythemia: Code(s): D75.1 - Secondary polycythemia Status: Acute (3) Cellulitis: Qualifiers: Laterality: right Site of cellulitis: extremity Site of cellulitis of extremity: upper extremity Qualified Code(s): L03.113 - Cellulitis of right upper limb Code(s): L03.90 - Cellulitis, unspecified Status: Acute (4) Suspected sleep apnea: Code(s): R29.818 - Other symptoms and signs involving the nervous system Status: Acute (5) Coronary artery disease: Onset Date: 10/2023 Code(s): I25.10 - Atherosclerotic heart disease of koi coronary artery without angina pectoris Status: Acute (6) Tobacco abuse: Code(s): Z72.0 - Tobacco use Status: Acute Time Spent With Patient Time with patient: 25 - 35 minutes Subjective Date/time seen: 11/18/23 07:26 Interval history: A 63-year-old female presented to the hospital on 11/17/2023 with chief complaint of shortness of breath. Workup in hospital included a chest x-ray which revealed mild linear discoid atelectasis in the anterior right middle lobe or lingula, T6 burst fracture age-indeterminate. Initial labs revealed proBNP 2370, 0.012. A respiratory panel was negative for influenza A and B, RSV, COVID. Last echo was reviewed which was obtained on 10/28/2023 and showed a normal LV systolic function with an estimated EF of 50-55%, grade 1 diastolic dysfunction, mild pulmonary hypertension with estimated pulmonary artery systolic pressure of 35 mmHg. Patient received prednisone, albuterol, DuoNeb, DTaP vaccine, Ativan, and doxycycline while in the ED. On examination today patient. She denies. She endorses. Review of Systems Review of Systems: All systems reviewed & are unremarkable except as noted in HPI and below Constitutional: Constitutional: Reports as per HPI and Reports no additional constitutional complaints Eyes: Eyes: Reports as per HPI and Reports no additional eye complaints ENT: Reports system reviewed and no additional complaints, except as documented and Reports as per HPI Cardiovascular: Cardiovascular: Reports as per HPI and Reports no additional cardiovascular complaints Respiratory: Respiratory: Reports as per HPI and Reports no additional respiratory complaints Gastrointestinal: Gastrointestinal: Reports as per HPI and Reports no additional gastrointestinal complaints Genitourinary: Genitourinary: Reports no additional female genitourinary complaints and Reports as per HPI Musculoskeletal: Musculoskeletal: Reports no additional musculoskeletal complaints and Reports as per HPI Integumentary/Breasts: Skin/Breast: Reports system reviewed and no additional complaints, except as docu and Reports as per HPI Neurologic: Reports system reviewed and no additional complaints, except as documented and Reports as per HPI Psychiatric: Psychiatric: Reports no additional psychiatric complaints and Reports as per HPI Exam Narrative: General: In no acute distress, well nourished Head: atraumatic, no encephalopathy Eyes: EOMI, PERRLA, sclera clear ENT: moist mucous membranes, nasal passages clear Neck: supple, no JVD, no adenopathy, trachea midline Cardiac: Normal S1 and S2. No murmur, gallops or friction rubs, peripheral pulses intact. Respiratory: Lungs clear to auscultation, no adventitious lung sounds Gastrointestinal: soft, non-distended, non-tender, normoactive bowel sounds. : voiding without difficulty. Extremities: moves all extremities well, no edema, good ROM, strength 5/5 Skin: clean, dry, intact. No wounds or lesions. Neuro: Alert and oriented x4, cranial nerves intact, no neuro deficits. Psych: normal mood, normal affect, interactive Objective Data Celia
[2023-11-18] MEDS: METOPROLOL SUCCINATE EXT REL 25 MG TABCR PO (08:21)
[2023-11-18] MEDS: ATORVASTATIN 40 MG TABLET PO (08:21)
[2023-11-18] MEDS: DOXYCYCLINE HYCLATE 100 MG TABLET PO (08:21)
[2023-11-18] MEDS: predniSONE 20 MG TABLET 40 MG PO (08:22)
[2023-11-18] MEDS: ASPIRIN 81 MG ENTERIC TABLET PO (08:22)
[2023-11-18] MEDS: ENOXAPARIN 40 MG/0.4 ML SYRINGE SUB-Q (08:22)
--- NOTE | 2023-11-18 15:58 | HOMEO2EVAL ---
Evaluation was performed at [facility] Home Oxygen Evaluation RC: Home Oxygen (O2) Evaluation Start: 11/18/23 15:34 Freq: ONCE Status: Active Protocol: RPE Activity Type Activity Date Activity User E-sign Co-sign Detail Recorded Client Recorded Date Recorded By Document 11/18/23 15:30 [email or web address] 11/18/23 15:58 PKH Document 11/18/23 15:35 [email or web address] 11/18/23 15:58 PKH Document 11/18/23 15:40 [email or web address] 11/18/23 15:58 PKH Document 11/18/23 15:45 [email or web address] [email or web address] 11/18/23 15:58 PKH Document 11/18/23 15:55 [email or web address] [email or web address] 11/18/23 15:58 PKH 11/18/23 11/18/23 11/18/23 15:30 15:35 15:40 Home O2 Evaluation [Oxygen] -Test Phase Resting Exercise Exercise -Oxygen Delivery Room Air Room Air Nasal Cannula -Oxygen Flow Rate (L/min) 1 [Pulse Oximetry] -Pulse Oximetry (90-100 %) 90 87 L 88 L [Pulse Rate] -Pulse Rate (60-100 beats/min) 104 H 120 H 119 H [Evaluation] -Activity Tolerance [Exercise] -Ambulation Distance (feet) -Ambulation Distance (meters) [Charges] -Evaluation Charges O2 Evaluation by Pulmonary 11/18/23 11/18/23 15:45 15:55 Home O2 Evaluation [Oxygen] -Test Phase Exercise Resting -Oxygen Delivery Nasal Cannula Room Air -Oxygen Flow Rate (L/min) 2 [Pulse Oximetry] -Pulse Oximetry (90-100 %) 90 91 [Pulse Rate] -Pulse Rate (60-100 beats/min) 121 H 105 H [Evaluation] -Activity Tolerance Good [Exercise] -Ambulation Distance (feet) 500 -Ambulation Distance (meters) 152.39 [Charges] -Evaluation Charges
--- NOTE | 2023-11-18 16:32 | PM.DS ---
DS: Admitting Diagnosis Discharge Date 11/18/23 Admitting Diagnosis Acute exacerbation of COPD Polycythemia Cellulitis Suspected sleep apnea Coronary artery disease Tobacco abuse DS: Summary Hospital Course Reason for hospitalization: Acute exacerbation of COPD Polycythemia Cellulitis Suspected sleep apnea Coronary artery disease Tobacco abuse Hospital Course: A 63-year-old female presented to the hospital on 11/17/2023 with chief complaint of shortness of breath.? Workup in hospital included a chest x-ray which revealed mild linear discoid atelectasis in the anterior right middle lobe or lingula, T6 burst fracture age-indeterminate.? Initial labs revealed proBNP 2370, 0.012.? A respiratory panel was negative for influenza A and B, RSV, COVID.? Last echo was reviewed which was obtained on 10/28/2023 and showed a normal LV systolic function with an estimated EF of 50-55%, grade 1 diastolic dysfunction, mild pulmonary hypertension with estimated pulmonary artery systolic pressure of 35 mmHg.? Patient received prednisone, albuterol, DuoNeb, DTaP vaccine, Ativan, and doxycycline while in the ED. On examination today patient is alert oriented x3, lying in the bed. She states she is feeling much better today. She denies any fever, chills, nausea, vomiting, diarrhea, abdominal pain, chest pain, shortness a breath, wheezing. Labs today were essentially unremarkable. She is stable for discharge today. She will be discharged on Solu-Medrol Dosepak, DuoNeb breathing treatments, and 5 day course of doxycycline. She will need to follow up with her primary care physician. She is also being discharged with 2 L of oxygen with activity and at night. Final diagnosis: Acute exasperation of COPD, sleep apnea Status at Discharge Cognitive/behavioral status at discharge: Alert oriented x3 Functional status at discharge: independent ambulation Overall status at discharge: patient is progressing back to baseline Time Spent with Patient Time attestation: Total time spent providing and/or coordinating discharge services: Time spent: Greater than 30 minutes Exam Narrative: General: In no acute distress, well nourished Head: atraumatic, no encephalopathy Eyes: EOMI, PERRLA, sclera clear ENT: moist mucous membranes, nasal passages clear Neck: supple, no JVD, no adenopathy, trachea midline Cardiac: Normal S1 and S2. RRR, No murmur, gallops or friction rubs, peripheral pulses intact. Respiratory: Lungs clear to auscultation, no adventitious lung sounds, currently on 2 L Gastrointestinal: soft, non-distended, non-tender, normoactive bowel sounds. : voiding without difficulty. Extremities: moves all extremities well, no edema, good ROM, strength 5/5 Skin: clean, dry, intact. No wounds or lesions. Neuro: Alert and oriented x4, cranial nerves intact, no neuro deficits. Psych: normal mood, normal affect, interactive DS: Data Data Completed and Pending Completed studies during hospitalization: Chest x-ray Pending studies at discharge: None Labs on day of discharge: Labs from last 24 hours 11/18/23 04:43 WBC 7.0 RBC 4.95 Hgb 15.9 H Hct 49.9 H MCV 100.8 H MCH 32.1 MCHC 31.9 L RDW 14.0 Plt Count 223 MPV 10.2 Sodium 139 Potassium 4.0 Chloride 103 Carbon Dioxide 27 Anion Gap 9 BUN 12 D Creatinine 0.80 Estim Creat Clear Calc 67 Estimated GFR > 60 Glucose 129 H Calcium 9.6 Magnesium 1.8 Procedures/Treatments: None Discharge Plan Discharge Attending physician on discharge: Crow Abernathy Discharging Clinician: Gloria Cohen Anticipated Discharge Date/Time: 11/18/23 16:16 Patient Disposition: Home, Self-Care Activity: as tolerated Diet: as tolerated Discharge Instructions: Finish all of your antibiotic and steroid as directed You were prescribed DuoNebs for at-home use this whenever you have shortness of breath or wheezing You also requiring oxygen 2 L with activity and at ni
== END 2023-11-18 16:50 | disposition home or self-care (01) ==
LOC: ANHED 15:54 → ANH2MED 17:03
PROVIDERS: Physician Assistant; Admitting Provider Student in an Organized Health Care Education/Training Program; Emergency Provider Student in an Organized Health Care Education/Training Program; Visit Provider Internal Medicine
DX: J44.1 Chronic obstructive pulmonary disease with (acute) exacerbation (principal); D75.1 Secondary polycythemia; L03.113 Cellulitis of right upper limb; R09.02 Hypoxemia; R29.818 Other symptoms and signs involving the nervous system; I25.10 Atherosclerotic heart disease of native coronary artery without angina pectoris; F17.210 Nicotine dependence, cigarettes, uncomplicated; Z20.822 Contact with and (suspected) exposure to COVID-19; Z79.82 Long term (current) use of aspirin; Z79.51 Long term (current) use of inhaled steroids; Z23 Encounter for immunization
CPT/HCPCS: 36415; 71046; 80048; 80053; 83735; 83880; 84484; 85025; 85027; 85380; 85610; 85730; 87637; 90471; 90715; 93005; 94618; 94640; 96372; 96374; 99285; A9270; G0378; J1650; J2060; J7512

== ENCOUNTER 2023-12-18 00:12 | Day surgery (SDC) | payer OTHER, SELFPAY ==
[2023-12-17 10:54] VITALS: BMI 30.2
[2023-12-18] VITALS (27 sets, daily range): BP systolic 84–140; BP diastolic 51–84; PULSE 88–135; RESP 18–25; O2SAT 86–96; BMI 29.9
[2023-12-18 08:07] LABS: Basophils Absolute Auto 0.1 K/mm3 (0.0-0.1); Basophils Percent Auto 0.7 % (0.2-1.2); Eosinophils Absolute Auto 0.4 K/mm3 (0-0.3); Eosinophils Percent Auto 4.7 % (0-4.4); Immature Granulocyte Absolute 0.03 K/mm3 (0.00-0.031); Immature Granulocyte Percent A 0.4 % (0-0.5); Lymphocytes Percent Auto 30.1 % (18.3-44.2); Mean Platelet Volume 10.7 fl (7.4-10.4); Monocytes Absolute Auto 0.6 K/mm3 (0.1-0.6); Monocytes Percent Auto 7.7 % (2.6-8.5); Neutrophils Absolute Auto 4.7 K/mm3 (1.3-6.7); Neutrophils Percent Auto 56.4 % (45.5-73.1); Platelet Count Result 186 k/mm3 (150-375); Red Cell Distribution Width 13.8 % (11.5-14.5); White Blood Count 8.3 K/mm3 (4.5-10.0)
--- NOTE | 2023-12-18 08:16 | WPDMODSED ---
Moderate Sedation Note-Pt Data Patient Data Diagnosis: Atypical chest pain COPD Abnormal nuclear stress test Present Complaint: Intermittent chest pain Procedure to be performed/Plan: Left heart catheterization Allergies Allergy/AdvReac Type Severity Reaction Status Date / Time codeine AdvReac Itching Verified 12/18/23 07:44 Home Medications Medication Instructions Recorded Confirmed Type albuterol sulfate 90 mcg/actuation 2 puff inhalation TID PRN 10/26/23 12/17/23 History aerosol inhaler Shortness Of Breath Or Wheezing fluticasone propionate 115 2 puff inhalation BID 10/26/23 12/17/23 History mcg-salmeterol 21 mcg/actuation HFA inhaler (Advair HFA) umeclidinium 62.5 mcg/actuation 1 inh inhalation DAILY 10/26/23 12/17/23 History blister powder for inhalation (Incruse Ellipta) aspirin 81 mg tablet,delayed 81 mg PO QAM #60 tabs 10/28/23 12/17/23 Rx release atorvastatin 40 mg tablet 40 mg PO DAILY #60 tabs 10/28/23 12/17/23 Rx metoprolol succinate 25 mg 25 mg PO QAM #60 tabs 10/28/23 12/17/23 Rx tablet,extended release 24 hr (Toprol XL) nitroglycerin 0.4 mg sublingual 0.4 mg sublingual Q5MIN PRN Chest 10/28/23 12/17/23 Rx tablet (Nitrostat) Pain #10 tabs ipratropium 0.5 mg-albuterol 3 mg 3 ml inhalation Q6HRT #30 dose pk 11/18/23 12/17/23 Rx (2.5 mg base)/3 mL nebulization soln Current Medications: Active Medications Sodium Chloride (Normal Saline Iv) 500 mls @ 100 mls/hr IV CONT .Q5H EMILY Sedation/Anesthesia: No previous sedation/anesthesia problems (including family history). [facility] Past Medical History Medical History (Updated 11/17/23 @ 23:30 by Anne Marie Alvarenga PA-C) Chronic obstructive pulmonary disease Coronary artery disease (10/2023) Nuclear stress test showed a large, severe non reversible infarcts including multiple meyers of the apex and mid anterior and mid posterior segments consistent with infarct with no reversible ischemia. Tobacco abuse Surgical History Surgical History (Updated 11/17/23 @ 19:12 by Anne Marie Alvarenga PA-C) History of section Family History Family History Mother Cerebrovascular accident Sibling FH: CABG (coronary artery bypass surgery) Father Stented coronary artery Social History Social History (Updated 11/17/23 @ 19:13 by Anne Marie Alvarenga PA-C) Social History: Surrogate medical decision maker: Meghan Babcock, daughter. Code status: Full code. Smoking packs per day: 1 Smoking cigarettes per day: 20.0 Years smoked: 47 Smoking pack-years: 47.00 Smoking status: Light tobacco smoker Tobacco type: cigarettes Second hand tobacco smoke exposure: Yes Alcohol intake: former Drinks per week: 12 Substance use: never Substance use type: does not use Do You Feel Safe in your Home?: Yes Lack of Transportation: No Lack of Food: Never True Current Housing: I Have Housing Concerned About Future Housing: No Difficulty Paying Gas/Electric Bills: No Difficulty Paying for Meds: No Currently Unemployed: No Education: High School Diploma/GED Difficulty w/ Childcare or Family Care: No Living arrangements: with family Spiritual care concerns: No Mod Sed Physical Exam Physical Exam Pre Procedural Exam: Normal: Neck, Throat, Airway, Heart Size, Heart Rate, Heart Rhythm, Neuro Exam and Extremities and Variation: Appearance (Anxious white female) and Lungs (Breath sounds diminished bilaterally but clear) Hours since solid foods: 12 Hours since liquid intake: 12 Mallampati Classification: class II Internal Medicine - PN: Obj Da Vital Signs Vital Signs: Vital Signs - 24 hr 12/18/23 07:46 Pulse Rate 119 H Respiratory Rate 25 H Blood Pressure 140/83 Pulse Oximetry 93 Oxygen Delivery Room Air Meds/Results Medications: Active Medications Generic Name Dose Route Start Last Admin Trade Name Freq ID
[2023-12-18 08:37] LABS: Blood Urea Nitrogen 11 mg/dL (7-17); Estimated Glomerular Filt Rate > 60
[2023-12-18 09:26] LABS: Sodium 139 mmol/L (137-145)
[2023-12-18 09:27] LABS: Anion Gap 5 mmol/L (4-12); Carbon Dioxide 29 mmol/L (22-30); Chloride 105 mmol/L (98-107); Estimated CRCL calculation 64 ml/min; Potassium 3.6 mmol/L (3.4-5.0)
[2023-12-18 09:28] LABS: Calcium 9.5 mg/dL (8.4-10.2); Glucose 120 mg/dL (65-110)
--- NOTE | 2023-12-18 09:40 | P.PCNCC_ITS ---
Cardiac Cath Procedure Note Date of procedure:: 12/18/23 Performing physician:: Parish Downing MD Indication:: COPD elevation of troponin abnormal stress test Brief clinical history:: this is a 63-year-old woman without previous history of coronary disease. She does have longstanding cigarette smoking and COPD. During recent admission with dyspnea she was found to have elevation of troponin. Subsequently a nuclear stress test was felt to be abnormal indicating possibility of a previous anterior IL. for further evaluation of this left heart catheterization was recommended. Procedure Procedure performed:: Left ventriculogram coronary angiogram Sedation/Medication given:: fentanyl 50 mg Versed 2 mg case start time 9:21 a.m. case end time 9:34 a.m. sedation provided by Latia Jimenez RN, trained observer Access site:: right femoral artery Estimated blood loss:: minimal Procedure note:: patient was brought to the cardiac catheterization lab postabsorptive state where the right femoral triangle was prepped draped fashion. Anesthesia was provided with 1% lidocaine infiltrated locally. Using the modified Seldinger technique a 5 Greenlandic sheath was placed into the right femoral artery. After this left heart catheterization was carried out. A 5 Greenlandic angled pigtail catheter was used to measure left-sided hemodynamics and inject the left ventriculogram in the VALDIVIA projection. Following this standard 5 Greenlandic FL4 and JR4 catheters were used to engage and inject the left and right coronaries in multiple projections. The cine angiograms were reviewed and the case was then terminated. An angiogram was done of the femoral artery through the sheath after which the decision was made to have the sheath removed with direct manual pressure. She tolerated the procedure well there were no apparent complications and there was no evidence of groin hematoma upon leaving the cardiac catheterization lab. Findings:: Hemodynamics: Central aortic pressure is 110 over 60 left ventricle 108/3 end-diastolic pressure 12 there is no gradient on pullback across the aortic valve. Left ventricle: The LV is normal in size all segments contract normally there is no wall motion abnormality consistent with previous anterior infarction. Global ejection fraction is 60% left main coronary artery is nicely patent the left anterior descending is a moderate caliber artery extending down to the apex. There is minimal plaquing at the ostium of the LAD representing no more than 20-30% stenosis. The remainder of the LAD its diagonal and septal branches are angiographically unremarkable the circumflex is a moderate caliber artery giving rise to marginal branches. The circumflex system is smooth and angiographically free of disease. The right coronary artery is moderate to large caliber dominant to the posterior circulation the right coronary artery is smooth and angiographically free of disease. Conclusion:: 1. Right coronary dominant circulation with no angiographically significant coronary disease, minimal plaquing is noted at the LAD ostium as described above 2. normal appearing left ventricular systolic function with no wall motion abnormalities, stress testing had suggested evidence of previous anterior infarction which appears not to be the case Parish Downing MD [facility]
--- NOTE | 2023-12-18 11:20 | ECG_ITS ---
[facility] [address] Test Date: 2023-12-18 Pat Name: Minnie Anguiano Department: Room: Gender: F Pattern Setter: : 1960 Requested By: Parish Vega Order Number: [id number] Silverio MD: Parish Downing M.D. Measurements Intervals [place] Rate: 128 P: 74 UT: 190 QRS: 68 QRSD: 65 T: 88 QT: 373 QTc: 545 Interpretive Statements ATYPICAL ATRIAL FLUTTER WITH TWO-TO-ONE CONDUCTION NONSPECIFIC T-WAVE ABNORMALITY ABNORMAL ECG No previous ECG available for comparison Electronically Signed On 12-19-2023 07:47:37 CDT by Parish Downing M.D.
[2023-12-18] MEDS: SODIUM CHLORIDE 0.9% IV 1,000 ML 125 ML IV CONT (11:35)
== END 2023-12-18 16:15 | disposition home or self-care (01) ==
PROVIDERS: Visit Provider Specialist
PROC: 4A023N7 Measurement of Cardiac Sampling and Pressure, Left Heart, Percutaneous Approach (ICD-10-PCS; CPT 93452; principal; 2023-12-18 09:00)
DX: R94.39 Abnormal result of other cardiovascular function study (principal); R79.89 Other specified abnormal findings of blood chemistry; I25.2 Old myocardial infarction; R45.89 Other symptoms and signs involving emotional state; J44.9 Chronic obstructive pulmonary disease, unspecified; Z79.51 Long term (current) use of inhaled steroids; Z79.82 Long term (current) use of aspirin
CPT/HCPCS: 36415; 80048; 85025; 93005; 93458; C1887; C1894; J0461; J1644; J2250; J3010; J7030; J7040

== ENCOUNTER 2024-02-15 15:38 | Emergency (ER) | payer OTHER, SELFPAY ==
--- NOTE | ~2024-02-15 | XR_ITS ---
EXAMINATION: XR chest 2V DATE: 02/15/2024 16:34 INDICATION: Shortness of breath. TECHNIQUE: Frontal and lateral views of the chest were obtained. COMPARISON: Chest 2 views 11/17/2023 FINDINGS: There is no pneumonia, pleural effusion, or pneumothorax. The heart size is normal. There a re prominent pericardial fat pads. There is a chronic burst fracture in mid thoracic spine. IMPRESSION: 1. No acute cardiopulmonary disease. Reviewed, dictated and finalized at location A.
[2024-02-15 15:48] VITALS: BP 99/69; PULSE 107; RESP 20; TEMP 36.3; O2SAT 93
--- NOTE | 2024-02-15 15:54 | ED.SOB ---
HPI - SOB/Dyspnea General Chief Complaint: Shortness of Breath/Dyspnea <MARILEE Grissom Last Filed: 02/15/24 16:02> Stated Complaint: SOB <MARILEE Grissom Last Filed: 02/15/24 16:02> Time Seen by Provider: 02/15/24 15:54 <MARILEE Grissom Last Filed: 02/15/24 16:02> Focused HPI: Patient is a 63 y/o female, with PMH of COPD/asthma, who presents to the ED with c/o SOB. Patient reports she has not felt well since Thursday, c/o productive cough and increased shortness of breath. SOB worse with any type of exertion, having trouble even walking to her bathroom w/o getting out of breath. Has home O2 available, wears 2L prn. Has been wearing O2 constantly since Thursday. Has been using her inhalers and nebulizers w/o relief. Denies CP, fevers, BLE pain or swelling. No hx of blood clots. Denies sick contacts. GENERAL: Ill-appearing, well-nourished, and in no acute distress. HEAD: Normocephalic, atraumatic. CHEST: Airway patent, respirations tachypneic with increased resp effort. Decreased lung sounds throughout with rhonchi in bases. Occ expiratory wheezing. HEART: Tachycardic with regular rhythm.? MSK: No lower extremity edema. No calf tenderness. NEURO: ?Alert and oriented x3. Patient screened in triage and initial orders placed.? ?Additional care and disposition to be based upon?diagnostic testing and treatment. <MARILEE Grissom Last Filed: 02/15/24 16:02> Source: patient <MARILEE Grissom Last Filed: 02/15/24 16:02> Mode of arrival: ambulatory <MARILEE Grissom Last Filed: 02/15/24 16:02> Limitations: no limitations <MARILEE Grissom Last Filed: 02/15/24 16:02> Related Data Home Medications: Home Medications Medication Instructions Recorded Confirmed albuterol sulfate 90 mcg/actuation 2 puff inhalation TID PRN 10/26/23 12/17/23 aerosol inhaler Shortness Of Breath Or Wheezing fluticasone propionate 115 2 puff inhalation BID 10/26/23 12/17/23 mcg-salmeterol 21 mcg/actuation HFA inhaler (Advair HFA) umeclidinium 62.5 mcg/actuation 1 inh inhalation DAILY 10/26/23 12/17/23 blister powder for inhalation (Incruse Ellipta) <Cecile Darnell PA-C - Last Filed: 02/15/24 16:02> Allergies/Adverse Reactions: Allergies Allergy/AdvReac Type Severity Reaction Status Date / Time codeine AdvReac Itching Verified 02/15/24 15:52 <Cecile Darnell PA-C - Last Filed: 02/15/24 16:02> Review of Systems Review of Systems: All systems as dictated in HPI <Faisal Nieves PA-C - Last Filed: 02/16/24 03:04> [facility] Past Medical History Medical History: Medical History Chronic obstructive pulmonary disease Coronary artery disease (10/2023) Nuclear stress test showed a large, severe non reversible infarcts including multiple meyers of the apex and mid anterior and mid posterior segments consistent with infarct with no reversible ischemia. Tobacco abuse <Cecile Darnell PA-C - Last Filed: 02/15/24 16:02> Surgical History Surgical History: Surgical History History of section <Cecile Darnell PA-C - Last Filed: 02/15/24 16:02> Family History Family History: Family History Mother Cerebrovascular accident Sibling FH: CABG (coronary artery bypass surgery) Father Stented coronary artery <Cecile Darnell PA-C - Last Filed: 02/15/24 16:02> Social History Social History: Social History Social History: Surrogate medical decision maker: Meghan Babcock, daughter. Code status: Full code. Smoking packs per day: 1 Smoking cigarettes per day: 20.0 Years smoked: 47 Smoking pack-years: 47.00
--- NOTE | 2024-02-15 15:56 | ECG_ITS ---
Test Date: 2024-02-15 15:59:25 Measurements Intervals [place] Rate: 103 P: 63 NC: 137 QRS: 72 QRSD: 68 T: 74 QT: 302 QTc: 396 Interpretive Statements SINUS TACHYCARDIA ABNORMAL RHYTHM ECG Compared to ECG 12/18/2023 11:23:15 LATERAL T-WAVE INVERSION HAS IMPROVED Electronically Signed On 02-15-2024 17:21:30 CDT by Parish Downing M.D.
[2024-02-15 16:22] LABS: Basophils Absolute Auto 0.1 K/mm3 (0.0-0.1); Basophils Percent Auto 0.9 % (0.2-1.2); Eosinophils Absolute Auto 0.5 K/mm3 (0-0.3); Eosinophils Percent Auto 5.9 % (0-4.4); Hematocrit 42.6 % (37.0-47.0); Hemoglobin 14.1 g/dL (12.0-15.0); Immature Granulocyte Absolute 0.02 K/mm3 (0.00-0.031); Immature Granulocyte Percent A 0.3 % (0-0.5); Lymphocytes Absolute Auto 2.03 K/mm3 (0.9-3.2); Lymphocytes Percent Auto 25.7 % (18.3-44.2); Mean Corpuscular HGB Conc 33.1 g/dl (32-36); Mean Corpuscular Hemoglobin 32.2 pg (26-34); Mean Corpuscular Volume 97.3 fl (80-100); Mean Platelet Volume 9.7 fl (7.4-10.4); Monocytes Absolute Auto 0.5 K/mm3 (0.1-0.6); Monocytes Percent Auto 6.1 % (2.6-8.5); Neutrophils Absolute Auto 4.8 K/mm3 (1.3-6.7); Neutrophils Percent Auto 61.1 % (45.5-73.1); Platelet Count Result 231 k/mm3 (150-375); Red Blood Count 4.38 M/mm3 (4.2-5.4); Red Cell Distribution Width 13.9 % (11.5-14.5); White Blood Count 7.9 K/mm3 (4.5-10.0)
[2024-02-15 16:31] LABS: Lactic Acid Reflex 0.7 mmol/L (0.7-2.0)
[2024-02-15 16:33] LABS: Alanine Aminotransferase 20 U/L (6-35); Albumin Level 4.4 g/dL (3.5-5.1); Alkaline Phosphatase 71 U/L (38-126); Anion Gap 5 mmol/L (4-12); Aspartate Amino Transferase 28 U/L (14-36); Bilirubin,Total 0.9 mg/dL (0.2-1.3); Blood Urea Nitrogen 10 mg/dL (7-17); Calcium 9.2 mg/dL (8.4-10.2); Carbon Dioxide 33 mmol/L (22-30); Chloride 98 mmol/L (98-107); Estimated CRCL calculation 65 ml/min; Estimated Glomerular Filt Rate > 60; Glucose 98 mg/dL (65-110); INR 0.9; Prothrombin Time 12.8 Seconds (11.1-14.7); Sodium 136 mmol/L (137-145)
[2024-02-15 16:34] LABS: Partial Thromboplastin Time 26.6 Seconds (22.3-36.8)
[2024-02-15 16:44] LABS: NT Pro B Type Natriuretic Pept 195 pg/mL (19.9-100); Troponin I < 0.012 ng/mL (0.000-0.034)
[2024-02-15 17:02] LABS: Influenza A QL RT-PCR Negative (Negative); Influenza B QL RT-PCR Negative (Negative); RSV RNA, RT-PCR Negative (Negative); SARS-CoV-2 RNA PCR Negative (Negative)
[2024-02-15 17:08] LABS: D Dimer < 0.27 ug/mL (<0.48)
[2024-02-15 17:32] VITALS: BP 115/80; PULSE 103; RESP 24; O2SAT 94; O2SAT 97
[2024-02-15] MEDS: methylPREDNISolone SOD SUCC 125 MG VIAL IV PUSH (17:41)
[2024-02-15] MEDS: ALBUTEROL SULFATE NEB 2.5 MG/3 ML INH 10 MG INHALATION (17:48)
[2024-02-15] MEDS: IPRATROPIUM BR 0.02% INH SOLN 0.5 MG/2.5 ML VIAL 1 MG INHALATION (17:49)
[2024-02-15 17:52] VITALS: PULSE 103; RESP 18
[2024-02-15 18:46] VITALS: BP 126/73; PULSE 112; RESP 23; O2SAT 94
[2024-02-15 19:15] VITALS: PULSE 119; RESP 23
[2024-02-15 19:31] VITALS: BP 121/74; PULSE 115; RESP 16; TEMP 36.9; O2SAT 89
== END 2024-02-15 19:34 | disposition home or self-care (01) ==
PROVIDERS: Physician Assistant; Emergency Provider Physician Assistant; PCP Internal Medicine
DX: J20.9 Acute bronchitis, unspecified (principal); R00.0 Tachycardia, unspecified; Z20.822 Contact with and (suspected) exposure to COVID-19; F17.210 Nicotine dependence, cigarettes, uncomplicated; J44.9 Chronic obstructive pulmonary disease, unspecified; I25.10 Atherosclerotic heart disease of native coronary artery without angina pectoris
CPT/HCPCS: 36415; 71046; 80053; 83605; 83880; 84484; 85025; 85380; 85610; 85730; 87637; 93005; 94640; 96374; 99284; J2919

== ENCOUNTER 2024-11-10 03:30 | Inpatient (IN) | payer OTHER, SELFPAY ==
[2024-11-10] VITALS (24 sets, daily range): BP systolic 94–138; BP diastolic 54–99; PULSE 78–156; RESP 15–31; TEMP 36.2–36.9; O2SAT 90–99; BMI 29.9
--- NOTE | ~2024-11-10 | CT_ITS ---
CT diagnostic chest wo con Ordering provider: Parish Ragsdale MD History: 64 years Female with . COPD . Comparison: None. Technique: CT chest without IV contrast. Radiation reduction technique utilized.The dose-length product was 365.56 mGy-cm. FINDINGS: VISUALIZED THORACIC INLET: Normal. Retropharyngeal carotid arteries. MEDIASTINUM: Aorta/coronary arteries: Mild atheromatous disease. Heart/other: The heart is not enlarged. Lymph nodes: No mediastinal or hilar adenopathy. LUNGS: Underlying emphysematous changes. No pulmonary nodules or masses. No infiltrates or effusions. No pneumothorax. Atelectasis versus focal pneumonia is seen in the right upper lobe. VISUALIZED UPPER ABDOMEN: Right kidney small cyst measuring 1.8 cm. Status post cholecystectomy. Othe rwise, the visualized upper abdomen is normal. MUSCULOSKELETAL: Soft tissues: The superficial soft tissues are normal. Bones: Age appropriate degenerative changes of the spine. Burst fracture is seen in T6 which may be acute or chronic. MRI evaluation advised. IMPRESSION: 1. Focal area of atelectasis versus pneumonia in the right upper lobe anteriorly. Otherwise, No evid ence of pneumonia or pneumothorax. 2. Underlying emphysematous changes. 3. Burst fracture of T6. MRI is advised. Reviewed, dictated and finalized at location A. IMPRESSION: 1. Focal area of atelectasis versus pneumonia in the right upper lobe anterior ly. Otherwise, No evidence of pneumonia or pneumothorax. 2. Underlying emphysematous changes. 3. Burst fracture of T6. MRI is advised.
--- NOTE | ~2024-11-10 | XR_ITS ---
Portable chest x-ray Comparison: 02/15/2024 Clinical History: Dyspnea Findings: Lungs are clear, without focal consolidation or pleural effusion. Cardiomediastinal silho uette is stable. Bones and soft tissues are unremarkable. Impression: Clear lungs. Reviewed, dictated and finalized at location . Impression: Clear lungs.
--- NOTE | 2024-11-10 03:32 | ECG_ITS ---
Test Date: 2024-11-10 03:42:14 Measurements Intervals [place] Rate: 151 P: 87 VA: 133 QRS: 93 QRSD: 69 T: 53 QT: 278 QTc: 441 Interpretive Statements SINUS TACHYCARDIA, POSSIBLE ATRIAL FLUTTER BORDERLINE RIGHT AXIS DEVIATION [QRS AXIS > 90] MINIMAL ST DEPRESSION [0.025+ mV ST DEPRESSION] ABNORMAL RHYTHM ECG Compared to ECG 02/15/2024 15:59:25 ST (T wave) deviation now present Electronically Signed On 11-11-2024 18:55:53 CDT by Jensen Peterson
--- NOTE | 2024-11-10 03:34 | ED_ITS ---
HPI - SOB/Dyspnea General Chief Complaint: Shortness of Breath/Dyspnea Stated Complaint: SIFFICULTY IN BREATHING Time Seen by Provider: 11/10/24 03:32 History of Present Illness HPI Narrative: 64-year-old female history of COPD/asthma. She presents to the emergency department in respiratory distress. She wears 2 L p.r.n. at home. She has been using her inhalers at home without any relief of symptoms. Symptoms going on for several days associated with some sick family members. No chest pain or chest tightness. EMS noted that she was in severe respiratory distress with tachycardia in the 140s to 150s, tachypnea in the 30s, hypoxic at 89% on her 2 L at home. Patient is in respiratory distress, tripod positioning but is mentating appropriately and answering questions. She was brought back in the room 6 for resuscitation and evaluation. Related Data Home Medications ?Medication ?Instructions ?Recorded ?Confirmed ?Last Taken ?Type albuterol sulfate 90 mcg/actuation 2 puff inhalation TID PRN 10/26/23 12/17/23 12/17/23 History aerosol inhaler Shortness Of Breath Or Wheezing fluticasone propionate 115 2 puff inhalation BID 10/26/23 12/17/23 12/17/23 History mcg-salmeterol 21 mcg/actuation HFA inhaler (Advair HFA) umeclidinium 62.5 mcg/actuation 1 inh inhalation DAILY 10/26/23 12/17/23 12/17/23 History blister powder for inhalation (Incruse Ellipta) Allergies Allergy/AdvReac Type Severity Reaction Status Date / Time codeine AdvReac Itching Verified 02/15/24 15:52 Review of Systems 2 Review of Systems: As reviewed above in HPI [facility] Past Medical History Medical History Tobacco abuse Chronic obstructive pulmonary disease Coronary artery disease (10/2023) Nuclear stress test showed a large, severe non reversible infarcts including multiple meyers of the apex and mid anterior and mid posterior segments consistent with infarct with no reversible ischemia. Surgical History Surgical History History of section Family History Family History Mother Cerebrovascular accident Sibling FH: CABG (coronary artery bypass surgery) Father Stented coronary artery Social History Social History Social History: Surrogate medical decision maker: Meghan Babcock, daughter. Code status: Full code. Smoking packs per day: 1 Smoking cigarettes per day: 20.0 Years smoked: 47 Smoking pack-years: 47.00 Smoking status: Light tobacco smoker Tobacco type: cigarettes Second hand tobacco smoke exposure: Yes Alcohol intake: former Drinks per week: 12 Substance use: never Substance use type: does not use Do You Feel Safe in your Home?: Yes Lack of Transportation: No Lack of Food: Never True Current Housing: I Have Housing Concerned About Future Housing: No Difficulty Paying Gas/Electric Bills: No Difficulty Paying for Meds: No Currently Unemployed: No Education: High School Diploma/GED Difficulty w/ Childcare or Family Care: No Living arrangements: with family Spiritual care concerns: No Exam 2 Narrative: GENERAL: Respiratory distress, ill-appearing, tripod positioning, awake and answering questions HEAD: [Normocephalic, atraumatic.] EYES: [PERRLA and EOMI.] ENT: Nares clear, no rhinorrhea or epistaxis. Mucous membranes moist. NECK: Supple. CHEST: Diffuse scattered wheezing, prolonged expiration, tachypnea, tripod positioning HEART: Tachycardic rate and regular rhythm. No murmur heard. [Normal peripheral pulses.] ABDOMEN: [Soft, nondistended], [nontender], [No rigidity or guarding] EXTREMITIES: Normal range of motion. [No edema.] SKIN: Warm, dry, no rash. NEURO: [No focal deficits]. Alert and oriented [x3.] PSYCH: [Normal mood and affect.] Course Vital Signs Vital signs: Vital Signs Temperature 36.6 C 11/10/24 03:29 Pulse Rate 146 H 11/10/24 03:29 Respiratory Rate 31 H 11/10/24 03:29 Blood Pressure 119/99 H 11/10/24 03:29 Pulse Oximetry 90 11/10/24 03:29 Oxygen Delivery Room Air 11/10/24 03:29 Temperature 36.6 C 11/10/24 03:29 Pulse Rate 153 H 11/10/24 03:36 Respiratory Rate 24 H 11/10/24 03:36 Blood Pressure 119/99 H 11/10/24 03:36 Pulse Oximetry 99 11/10/24 03:36 Oxygen Delivery BiPAP 11/10/24 03:33 MDM - SOB/Dyspnea MDM Narrative Medical decision making narrative: 64-year-old female with history of COPD/asthma presenting in severe respiratory distress. She wears 2 L p.r.n. home oxygen and has been using her albuterol and Advair without any relief of symptoms. Several days respiratory distress the worse this morning. She presents tachycardic, tachypneic, hypoxic but awake and answering questions. She is tripod positioning and having significant wheezing with prolonged expiratory phase. Suspicion for a severe asthma/COPD exacerbation versus pneumothorax versus pneumonia. No history of CHF. No signs of CHF or edema in the extremities. No history of thromboembolic event such as PE. Patient was immediately transition to BiPAP with respiratory therapy called to bedside. He was given subcutaneous terbutaline for her severe respiratory distress, Solu-Medrol and albuterol was given in route by EMS. Magnesium was started as well as continues Atrovent and albuterol here with respiratory therapy. Workup was ordered including ABG, CBC, CMP, EKG, chest x-ray. Patient will be placed on comfort station supervisor and frequently re-evaluated. Chest x-ray shows left-sided consolidation which appears to be a pneumonia. She was started on doxycycline and Rocephin. Likely the cause to her respiratory complaints and exacerbating her COPD. Patient does have a white count of 13.1 1000 and a hemoglobin of 17.0 likely combination of dehydration and infection. Coag panel is normal. VBG shows normal pH and normal pCO2 which is reassuring. Electrolytes are normal. Normal renal function, normal glucose and LFTs. Negative viral panel. EKG shows sinus tachycardia regular rhythm and P-waves. QTC 441. Patient was re-evaluated immediately after initiation of BiPAP and terbutaline and she had significant improvement in her respiratory efforts. No longer wheezing, clear breath sounds throughout, tidal volumes in the 600s on the BiPAP. Patient states she felt much better. Heart rate came down in the low 100. Patient states that she does have a history of anxiety and feels like her anxiety was making her respiratory efforts worse. She was given a dose of Ativan to assist with this. Heart rate fluctuating in the 100-130 range but remained sinus with no signs of dysrhythmia on telemetry. Patient remains on BiPAP therapy. Patient felt better after the Ativan, heart rate now in the for upper 90s, low 1 100s, saturating 99% on BiPAP with good tidal volumes. Tachypnea slowly improving. Spoke to the hospitalist currently being covered by the midlevel provider history who accepted the patient to IMU bed given patient's respiratory status and BiPAP use. Patient will be admitted for treatment of her respiratory failure, pneumonia. Medical Records Attestation: I reviewed the patient's medical records. Lab Data Attestation: I reviewed the patient's lab results. 11/10/24 03:40 11/10/24 03:40 Labs: Lab Results 11/10/24 Range/Units 03:40 WBC 13.1 H (4.5-10.0) K/mm3 RBC 5.28 (4.2-5.4) M/mm3 Hgb 17.0 H (12.0-15.0) g/dL Hct 53.3 H (37.0-47.0) % MCV 100.9 H (80-100) fl MCH 32.2 (26-34) pg MCHC 31.9 L (32-36) g/dl RDW 13.8 (11.5-14.5) % Plt Count 251 (150-375) k/mm3 MPV 9.8 (7.4-10.4) fl Immature Gran % (Auto) 0.3 (0-0.5) % Neut % (Auto) 53.6 (45.5-73.1) % Lymph % (Auto) 37.5 (18.3-44.2) % [place] % (Auto) 5.4 (2.6-8.5) % Eos % (Auto) 2.6 (0-4.4) % Baso % (Auto) 0.6 (0.2-1.2) % Lymph # (Auto) 4.90 H (0.9-3.2) K/mm3 [place] # (Auto) 0.7 H (0.1-0.6) K/mm3 Eos # (Auto) 0.3 (0-0.3) K/mm3 Baso # (Auto) 0.1 (0.0-0.1) K/mm3 Abs Immat Gran (auto) 0.04 H (0.00-0.031) K/mm3 Absolute Neuts (auto) 7.0 H (1.3-6.7) K/mm3 Absolute Nucleated RBC 0.000 (0.0-0.012) K/mm3 Nucleated RBC % 0.0 (0.0-0.2) % PT 12.6 (11.1-14.7) Seconds INR 0.9 APTT 25.1 (22.3-36.8) Seconds Expiratory Pressure 6 cmH2O Inspiratory Pressure 12 cmH2O Sodium 139 (137-145) mmol/L Potassium 3.7 (3.4-5.0) mmol/L Chloride 101 (98-107) mmol/L Carbon Dioxide 31 H (22-30) mmol/L Anion Gap 7 (4-12) mmol/L BUN 9 (7-17) mg/dL Creatinine 0.96 (0.7-1.0) mg/dL Estim Creat Clear Calc 55 ml/min Estimated GFR 59 (59 - ) Glucose 126 H (65-110) mg/dL Calcium 9.1 (8.4-10.2) mg/dL Magnesium 2.0 (1.6-2.3) mg/dL Total Bilirubin 0.7 (0.2-1.3) mg/dL AST 23 (14-36) U/L ALT 20 (6-35) U/L Alkaline Phosphatase 90 (38-126) U/L Total Protein 7.0 (6.3-8.2) g/dL Albumin 4.4 (3.5-5.1) g/dL ABG Data ABG results: 11/10/24 03:40 VBG pH 7.381 VBG pCO2 46.0 VBG pO2 56.9 H VBG HCO3 26.7 O2 Delivery Device Bipap O2 Liters/Min Not Reportable FiO2 50 Attestation: I personally reviewed and interpreted this ABG as follows: Interpretation: Normal pH, mildly elevated pCO2, normal bicarb. Imaging Data Attestation: I personally reviewed and interpreted this imaging study as follows: My impression: Left-sided pneumonia, no pneumothorax, no cardiomegaly Critical Care Time Critical Care Time Critical Care Time: Yes Total Critical Care Time: 75 Discharge Plan Discharge Clinical Impression: Acute exacerbation of chronic obstructive pulmonary disease, Anxiety, Acute hypoxic on chronic hypercapnic respiratory failure Community acquired pneumonia Qualifiers: Laterality: left Lung location: lower lobe of lung Qualified Code(s): J18.9 - Pneumonia, unspecified organism Patient Disposition: Still a Patient Condition: Stable Patient Language: Maltese Prescriptions: No Action albuterol sulfate 90 mcg/actuation HFA aerosol inhaler 2 puff INHALATION TID PRN (Reason: Shortness Of Breath Or Wheezing) fluticasone propion-salmeterol [Advair HFA] 115-21 mcg/actuation HFA aerosol inhaler 2 puff INHALATION BID Incruse Ellipta 62.5 mcg/actuation blister with device 1 inh INHALATION DAILY atorvastatin 40 mg Tablet 40 mg PO DAILY Qty: 60 0RF aspirin 81 mg Tablet,Delayed Release (Dr/Ec) 81 mg PO QAM Qty: 60 0RF nitroglycerin [Nitrostat] 0.4 mg Tablet, Sublingual 0.4 mg sublingual Q5MIN PRN (Reason: Chest Pain) Qty: 10 0RF metoprolol succinate [Toprol XL] 25 mg Tablet Extended Release 24 Hr 25 mg PO QAM Qty: 60 0RF ipratropium-albuterol 0.5 mg-3 mg(2.5 mg base)/3 mL Solution For Nebulization 3 ml inhalation Q6HRT Qty: 30 0RF methylprednisolone [Methylpred DP] 4 mg tablets,dose pack See Rx Instructions .ROUTE .COMPLEX Qty: 21 0RF Rx Instructions: for 6 days amoxicillin-pot clavulanate 875-125 mg tablet 1 tablet PO Q12H Qty: 14 0RF Follow-up/Referrals: José Miguel,MD Parish [Primary Care Provider] - Time of Disposition: 05:30
[2024-11-10] MEDS: MAGNESIUM SULF 2 GM/WATER 50ML 2 GM/50 ML BAG IVPB (03:39)
[2024-11-10] MEDS: TERBUTALINE SULFATE 1 MG/ML VIAL 0.25 MG SUB-Q (03:44)
[2024-11-10 03:48] LABS: Fractional Inspired Oxygen 50 %; HCO3 VBG 26.7 mEq/l (24.0-30.0); PO2 VBG 56.9 mmHg (35.0-45.0); pH VBG 7.381 (7.300-7.400)
--- OUTSIDE RECORDS SUMMARY | 2024-11-10 03:48 | XMS_ITS | Encounter Summary ---
Author Organization [facility] Healthcare Address [address] [place] [address] Care Team Providers Care Final Inspector Paper Name Role Phone No, Physician Primary Care Provider [phone] Parish Valdez MD Primary Care Provider [phone] Encounter Details Date Type Department Care Team (Late st Contact Info) Description 10/26/2023 Orders Only [facility] Health Information Management [address] [place] [address] Parish Downing MD [address] [facility] [address] [place] [address] Social History Tobacco Use Types Packs/Day Years Used Date Smoking Tobacco: Never Assessed Personal Safety Answer Date Recorded Getting School Help Needed Not on file 10/28 Comments Unknown Sex and Gender Information Value Date Recorded Sex Assigned at Not on file Legal Sex Female 8:00 AM CDT Gender Identity Not on file Sexual Orientation Not on file documented as of this encounter Plan of Treatment Not on file documented as of this encounter Procedures Procedure Name Priority Date/Time Associated Diagnosis Comments SCAN - RADIOLOGY/IMAGING 10/26/2023 documented in this encounter Results * SCAN - RADIOLOGY/IMAGING (10/26/2023) Anatomical Region Laterality Modality Other us Parish Downing MD Final Re sult documented in this encounter Visit Diagnoses Not on filedocumented in this encounter Care Teams Final Inspector Paper Relationship Specialty Start Date End Date No, Physician PCP - General 10/26/23 12/31/23 Parish Valdez MD [address] [place] [address] PCP - General Internal Medicine 01/01/24 documented as of this encounter
--- OUTSIDE RECORDS SUMMARY | 2024-11-10 03:48 | XMS_ITS | Clinical Summary ---
Author Organization [facility] [address] Address [address] [place] [address] Care Team Providers Care Vp Emerging Media Name Role Phone Parish Valdez MD Primary Care Provider [phone] Allergies Active Allergy Reactions Criticality Noted Date Comments Codeine Itching Low 11/27/2023 Medications aspirin 81 mg enteric coated tablet Take 1 tablet (81 mg total) by mouth every morning 4 Active nitroglycerin (NITROSTAT) 0.4 mg SL tablet DISSOLVE 1 TABLET UNDER THE TONGUE EVERY 5 MINUTES FOR 3 DOSES NEEDED FOR CHEST PAIN 4 Active doxycycline 100 mg tablet Take 1 tablet/capsule (100 mg total) by mouth every 12 (twelve) hours 4 Active Advair HFA 115-21 mcg/actuation inhaler INHALE TWO PUFFS BY MOUTH EVERY TWELVE HOURS FOR BREATHING 4 Active Incruse Ellipta 62.5 mcg/actuation blister with device Inhale 1 puff (62.5 mcg total) daily 4 Active albuterol HFA (PROVENTIL HFA,VENTOLIN HFA,PROAIR HFA) 90 mcg/actuation inhaler INHALE 2 PUFFS BY MOUTH THREE TIMES DAILY FOR 10 DAYS NEEDED Active atorvastatin (LIPITOR) 40 mg tablet Take 1 tablet (40 mg total) by mouth daily 90 tablet 4 Active budesonide-form oteroL (SYMBICORT) 160-4.5 mcg/actuation inhaler INHALE 2 PUFFS BY MOUTH TWICE DAILY. RINSE MOUTH AFTER USE Active Active Problems No known active problems Medical History Medical History Date Comments Past heart attack COPD (chronic obstructive pulmonary disease) (HC C) Family History Medical History Relation Name Comments Coronary artery disease Brother Heart failure Father Cancer Mother Relation Name Status Comments Brother Alive Father Alive Mother Social History Tobacco Use Types Packs/Day Years Used Date Smoking Tobacco: Every Day Cigarettes Tobacco Cessation:Ready to Q uit: Not Asked; Counseling Given: Not Answered AUDIT-C Answer Date Recorded Q1: How often do you have a drink containing alc ohol? Monthly or less 11/27/2023 Q2: How many drinks containi ng alcohol do you have on a typical day when you are drinking? 1 or 2 11/27/2023 Q3: How often do you have si x or more drinks on one occasion? Never 11/27/2023 Personal Safety Answer Date Recorded Getting School Help Needed Not on file 10/28 Comments Unknown Sex and Gender Information Value Date Recorded Sex Assigned at Not on file Legal Sex Female 8:00 AM CDT Gender Identity Not on file Sexual Orientation Not on file Obstetrics History Last Filed Vital Signs Vital Sign Reading Time Taken Comments Blood Pressure 124/72 01/01/2024 9:17 AM CDT Pulse 87 01/01/2024 8:57 AM CDT Temperature - - Respiratory Rate - - Oxygen Saturation 94% 01/01/2024 8:57 AM CDT Inhaled Oxygen Concentration - - Weight 79.8 kg (176 lb) 01/01/2024 8:57 AM CDT Height 165.1 cm (5' 5 ) 01/01/2024 8:57 AM CDT Body Mass Index 29.29 01/01/2024 8:57 AM CDT Plan of Treatment Health Maintenance Due Date Last Done Comments Breast Cancer Screening-Mammogram 1960 Cervical Cancer Screening 1960 Colon Cancer Screening-Colonoscopy 1960 Depression Screening 1960 Hepatitis C Screening 1960 Hepatitis B Screening 1978 Regular Well Visit/Exam 18-64 1978 Pneumococcal vaccine <65 (1 of 2 - PCV) 09/17/1979 Zoster Vaccine (1 of 2) 2010 Influenza Vaccine (#1) 2024 DTaP/Tdap/Td Vaccine (2 - Td or Tdap) 11/16/203301/2024 Insurance [facility] Care Teams Vp Emerging Media Relationship Specialty Start Date End Date Parish Valdez MD [address] [place] [address] PCP - General Internal Medicine 01/01/24
--- OUTSIDE RECORDS SUMMARY | 2024-11-10 03:48 | XMS_ITS | Encounter Summary ---
Author Organization [facility] Healthcare Address [address] [place] [address] Care Team Providers Care News Commentator Name Role Phone No, Physician Primary Care Provider Parish Valdez MD Primary Care Provider [phone] Encounter Details Date Type Department Care Team (Late st Contact Info) Description 10/30/2023 Orders Only [facility] Health Information Management [address] [place] [address] Scanning, Provider Social History Tobacco Use Types Packs/Day Years [...] Date/Time Associated Diagnosis Comments SCAN - RADIOLOGY/IMAGING 10/30/2023 9:28 PM CDT CARDIOLOGY DOCUMENT SCAN 10/30/2023 9:28 PM CDT documented in this encounter Results * SCAN - RADIOLOGY/IMAGING (10/30/2023 9:28 PM CDT) Anatomical Region Laterality Modality Other us Provider Scanning Final Result * Cardiology Document Scan (10/30/2023 9:28 PM CDT) Anatomical Region Laterality Modality Other us Provider Scanning CV CARDIAC SERVICES PROCEDURES Final Result documented in this encounter Visit Diagnoses Not on filedocumented in this encounter Care Teams News Commentator Relationship Specialty Start Date End Date No, Physician PCP - General 10/26/23 12/31/23 Parish Valdez MD [address] [place] [address] PCP - General Internal Medicine 01/01/24 documented as of this encounter
--- OUTSIDE RECORDS SUMMARY | 2024-11-10 03:48 | XMS_ITS | Referral Summary ---
Author Organization [facility] [address] Address [address] [place] [address] Care Team Providers Care Net Web Developer Name Role Phone Parish Valdez MD Primary Care Provider [phone] Allergies Active Allergy Reactions Criticality Noted Date [...] Active Active Problems No known active problems Social History Tobacco Use Types Packs/Day Years [...] on file Sexual Orientation Not on file Last Filed Vital Signs Vital Sign Reading [...] 01/01/2024 8:57 AM CDT Plan of Treatment Not on file Insurance Care Teams Net Web Developer Relationship Specialty Start Date End Date Parish Valdez MD [address] [place] [address] PCP - General Internal Medicine 01/01/24
[2024-11-10 03:49] LABS: Device BIPAP
--- OUTSIDE RECORDS SUMMARY | 2024-11-10 03:49 | XMS_ITS | Data Portability ---
Author [facility] Zamarri[facility] Address [address] [place] [address] Care Team Providers Care Assistant Scientist Name Role Phone SATINDER VALDEZ Primary Care Provider Assessment Encounter Date Assessment Date Assessment LastModified by Organization Details LastModified Time 01/07/2024 01/07/2024 we will continue with inhalers advised to quit smoking wanted the ill effects of tobacco which were included but not limited to increased tumors of the aerodigestive tract increased incidence of heart attack stroke and cancer likely to sudden or chronic medical illness. Smoking cessation discussed in detail she will consider smoking cessation therapies but does not want to start right now follow up with me in 3 months cardiology note reviewed. [email or web address] Not available 01/07/2024 22:12:53 02/24/2024 02/24/2024 smoking cessation discussed in detail says she uses patch has before and that she will do it again continue with her inhalers her O2 sat today is 98 %. Prednisone to have on hand at home in case she decompensates with her COPD with the understanding that she will call if she has to start it. Also get pulmonary function tests [email or web address] Not available 02/24/2024 21:43:50 04/29/2024 04/29/2024 she declines any immunizations or cancer screenings. She refuses any referral to a specialist to talk about the importance of screenings and immunizations she will follow up with me in 3-4 months. I did give her some prednisone to have at home in case she would start up with a COPD flare to help keep her out of the emergency room. But she did agree that if she has started to take the prednisone because she was having a COPD flare she would notify the office [email or web address] Not available 04/29/2024 14:50:20 2024 2024 PFTs. Refuses to get evaluation by gynecology for well-woman refuses any colon cancer screening refuses any immunizations. Blood work has been ordered follow up 3 months. Low-fat diet do not smoke stay active [email or web address] Not available 2024 16:21:48 Plan of Treatment Reminders Order Date Submit Date Provider Last Modified By Organization Details Last Modified Time Details Appointments ANY 15 2024 01:00P M Satinder Valdez MD Not available Not available Not available Lab CBC w/ auto diff 2024 025 [facility], [address] [place] [address], [address], [place], [address], 10/01/2024 08:24:19 CMP, serum or plasma 2024 025 [facility], [address] [place] [address], [address], [place], [address], 10/01/2024 08:24:18 lipid panel, serum 2024 025 [facility], [address] [place] [address], [address], [place], [address], 10/01/2024 08:24:17 Referral None recorde d. Procedures None recorde d. Surgeries None recorde d. Imaging None recorde d. Medication Orders prednis one 20 mg tablet 2023 024 [id number], [address] [facility] [place], [place], [id number], 2024 12:19:47 atorvas tatin 40 mg tablet 2023 024 [facility] #89635, [address] [facility] [place], [place], [id number], 04/29/2024 14:22:21 prednis one 20 mg tablet 2023 024 [facility] #34022, [address], [place], [place], [id number], 2024 12:19:47 albuter ol sulfate HFA 90 mcg/act uation aerosol inhaler 2022 023 [facility] #72205, [address], [place], [place], [id number], 05/29/2023 15:36:23 Medrol (Hunter) 4 mg tablets in a dose pack 2022 024 [facility] #49696, [address], [place], [place], [id number], 2024 12:19:34 Patient TargetsNo targets recorded. Patient Instructions Encounter Date Encounter Id Patient Instructions Last Modified By Organization Details Last Modified Time 05/29/2023 [id number] When You Want to Lose Weight: Care Instructions [email or web address] Not available 05/29/2023 15:36:05 Quitting Tobacco: Care Instructions [facility] Not available 05/29/2023 15:36:05 high cholesterol: care instructions si Not available 05/29/2023 15:36:05 chronic obstructive pulmonary disease (COPD): care instructions [facility] Not available 05/29/2023 15:36:04 learning about copd and how to prevent lung infections [facility] Not available 05/29/2023 15:36:04 01/07/2024 [id number] Patient Health Questionnaire-9* [email or web address] Not available 01/08/2024 10:42:52 02/24/2024 [id number] Quitting Tobacco: Care Instructions [email or web address] Not available 02/24/2024 21:44:48 sending diane to [place] for ER note and [facility] for PFT [email or web address] Not available 02/24/2024 17:10:26 Reason for Referral None Reported. Results Created Date Observation Date Name Description Value Unit Range Abnormal Flag Note LastModifiedBy Organization Detail LastModifiedTime 10/01/1910/01/2024 LIPID PANEL cholesterol, total 233 mg/dL 100-19 9 above high normal Not Available [facility] ([facility]) [address] [place], [address], 10/01/2024 08:24:17 10/01/19 25 10/01/2024 LIPID PANEL triglyceride s 200 mg/dL 0-149 above high normal Not Available [facility] ([facility]) [address] [place], [address], 10/01/2024 08:24:17 10/01/19 25 10/01/2024 LIPID PANEL HDL cholesterol 75 mg/dL >39 Not Available [facility] ([facility]) [address] [place], [address], 10/01/2024 08:24:17 10/01/19 25 10/01/2024 LIPID PANEL VLDL cholesterol mahogany 35 mg/dL 5-40 Not Available [facility] ([facility]) [address] [place], [address], 10/01/2024 08:24:17 10/01/19 25 10/01/2024 LIPID PANEL LDL chol calc ([facility]) 123 mg/dL 0-99 above high normal Not Available [facility] ([facility]) [address] [place], [address], 10/01/2024 08:24:17 10/01/19 25 10/01/2024 COMP. METAB OLIC PANEL (14) glucose 84 mg/dL 70-99 Not Available [facility] ([facility]) [address] [place], [address], 10/01/2024 08:24:18 10/01/19 25 10/01/2024 COMP. METAB OLIC PANEL (14) BUN 12 mg/dL 8-27 Not Available [facility] ([facility]) [address] [place], [address], 10/01/2024 08:24:18 10/01/19 25 10/01/2024 COMP. METAB OLIC PANEL (14) creatinine 1.03 mg/dL 0.57-1 .00 above high normal Not Available [facility] ([facility]) [address] [place], [address], 10/01/2024 08:24:18 10/01/19 25 10/01/2024 COMP. METAB OLIC PANEL (14) eGFR 61 mL/mi n/1.7 3 >59 Not Available [facility] ([facility]) [address] [facility], [place], [address], 10/01/2024 08:24:18 10/01/19 25 10/01/2024 COMP. METAB OLIC PANEL (14) BUN/creatini ne ratio 12 12-28 Not Available [facility] ([facility]) [address] [facility], [place], [address], 10/01/2024 08:24:18 10/01/19 25 10/01/2024 COMP. METAB OLIC PANEL (14) sodium 141 mmol/ L 134-14 4 Not Available [facility] ([facility]) [address] [place], [address], 10/01/2024 08:24:18 10/01/19 25 10/01/2024 COMP. METAB OLIC PANEL (14) potassium 4.7 mmol/ L 3.5-5. 2 Not Available [facility] ([facility]) [address] [place], [address], 10/01/2024 08:24:18 10/01/19 25 10/01/2024 COMP. METAB OLIC PANEL (14) chloride 101 mmol/ L 96-106 Not Available [facility] ([facility]) [address] [place], [address], 10/01/2024 08:24:18 10/01/19 25 10/01/2024 COMP. METAB OLIC PANEL (14) carbon dioxide, total 22 mmol/ L 20-29 Not Available [facility] ([facility]) [address] [place], [address], 10/01/2024 08:24:18 10/01/19 25 10/01/2024 COMP. METAB OLIC PANEL (14) calcium 9.6 mg/dL 8.7-10 .3 Not Available [facility] ([facility]) [address] [place], [address], 10/01/2024 08:24:18 10/01/19 25 10/01/2024 COMP. METAB OLIC PANEL (14) protein, total 6.4 g/dL 6.0-8. 5 Not Available [facility] ([facility]) [address] [place], [address], 10/01/2024 08:24:18 10/01/19 25 10/01/2024 COMP. METAB OLIC PANEL (14) albumin 4.3 g/dL 3.9-4. 9 Not Available [facility] ([facility]) [address] [place], [address], 10/01/2024 08:24:18 10/01/19 25 10/01/2024 COMP. METAB OLIC PANEL (14) globulin, total 2.1 g/dL 1.5-4. 5 Not Available [facility] ([facility] [address] [place], [address], 10/01/2024 08:24:18 10/01/19 25 10/01/2024 COMP. METAB OLIC PANEL (14) bilirubin, total 0.4 mg/dL 0.0-1. 2 Not Available [facility] ([facility] [address] [place], [address], 10/01/2024 08:24:18 10/01/19 25 10/01/2024 COMP. METAB OLIC PANEL (14) alkaline phosphatase 90 IU/L 44-121 Not Available [facility] ([facility]) [address] [facility], [place], [address], 10/01/2024 08:24:18 10/01/19 25 10/01/2024 COMP. METAB OLIC PANEL (14) AST (SGOT) 17 IU/L 0-40 Not Available [facility] ([facility]) [address] [facility], [place], [address], 10/01/2024 08:24:18 10/01/19 25 10/01/2024 COMP. METAB OLIC PANEL (14) ALT (SGPT) 20 IU/L 0-32 Not Available [facility] ([facility]) [address] [facility], [place], [address], 10/01/2024 08:24:18 10/01/19 25 10/01/2024 CBC WITH DIFFE RENTI AL/PL ATELE T WBC 9.3 x10e3 /uL 3.4-10 .8 Not Available [facility] ([facility]) [address] [facility], [place], [address], 10/01/2024 08:24:19 10/01/19 25 10/01/2024 CBC WITH DIFFE RENTI AL/PL ATELE T RBC 5.33 x10e6 /uL 3.77-5 .28 above high normal Not Available [facility] ([facility]) [address] [place], [address], 10/01/2024 08:24:19 10/01/19 25 10/01/2024 CBC WITH DIFFE RENTI AL/PL ATELE T hemoglobin 17.6 g/dL 11.1-1 5.9 above high normal Not Available [facility] ([facility]) [address] [place], [address], 10/01/2024 08:24:19 10/01/19 25 10/01/2024 CBC WITH DIFFE RENTI AL/PL ATELE T hematocrit 53.6 % 34.0-4 6.6 above high normal Not Available [facility] ([facility]) [address] [facility], [place], [address], 10/01/2024 08:24:19 10/01/19 25 10/01/2024 CBC WITH DIFFE RENTI AL/PL ATELE T MCV 101 fL 79-97 above high normal Not Available [facility] ([facility]) [address] [facility], [place], [address], 10/01/2024 08:24:19 10/01/19 25 10/01/2024 CBC WITH DIFFE RENTI AL/PL ATELE T MCH 33.0 pg 26.6-3 3.0 Not Available [facility] ([facility]) [address] [facility], [place], [address], 10/01/2024 08:24:19 10/01/19 25 10/01/2024 CBC WITH DIFFE RENTI AL/PL ATELE T MCHC 32.8 g/dL 31.5-3 5.7 Not Available [facility] ([facility]) [address] [facility], [place], [address], 10/01/2024 08:24:19 10/01/19 25 10/01/2024 CBC WITH DIFFE RENTI AL/PL ATELE T RDW 13.8 % 11.7-1 5.4 Not Available [facility] ([facility]) [address] [place], [address], 10/01/2024 08:24:19 10/01/19 25 10/01/2024 CBC WITH DIFFE RENTI AL/PL ATELE T platelets 263 x10e3 /uL 150-45 0 Not Available [facility] ([facility]) [address] [place], [address], 10/01/2024 08:24:19 10/01/19 25 10/01/2024 CBC WITH DIFFE RENTI AL/PL ATELE T neutrophils 59 % notest ab. Not Available [facility] ([facility]) [address] [place], [address], 10/01/2024 08:24:19 10/01/19 25 10/01/2024 CBC WITH DIFFE RENTI AL/PL ATELE T lymphs 29 % notest ab. Not Available [facility] ([facility]) [address] [facility], [place], [address], 10/01/2024 08:24:19 10/01/19 25 10/01/2024 CBC WITH DIFFE RENTI AL/PL ATELE T monocytes 8 % notest ab. Not Available [facility] ([facility]) [address] [place], [address], 10/01/2024 08:24:19 10/01/19 25 10/01/2024 CBC WITH DIFFE RENTI AL/PL ATELE T eos 2 % notest ab. Not Available [facility] ([facility]) [address] [facility], [place], [address], 10/01/2024 08:24:19 10/01/19 25 10/01/2024 CBC WITH DIFFE RENTI AL/PL ATELE T basos 1 % notest ab. Not Available [facility] ([facility]) [address] [facility], [place], [address], 10/01/2024 08:24:19 10/01/19 25 10/01/2024 CBC WITH DIFFE RENTI AL/PL ATELE T neutrophils (absolute) 5.6 x10e3 /uL 1.4-7. 0 Not Available [facility] ([facility]) [address] [place], [address], 10/01/2024 08:24:19 10/01/19 25 10/01/2024 CBC WITH DIFFE RENTI AL/PL ATELE T lymphs (absolute) 2.7 x10e3 /uL 0.7-3. 1 Not Available [facility] ([facility]) [address] [place], [address], 10/01/2024 08:24:19 10/01/19 25 10/01/2024 CBC WITH DIFFE RENTI AL/PL ATELE T monocytes(ab solute) 0.7 x10e3 /uL 0.1-0. 9 Not Available [facility] ([facility]) [address] [facility], [place], [address], 10/01/2024 08:24:19 10/01/19 25 10/01/2024 CBC WITH DIFFE RENTI AL/PL ATELE T eos (absolute) 0.2 x10e3 /uL 0.0-0. 4 Not Available [facility] ([facility]) [address] [facility], [place], [address], 10/01/2024 08:24:19 10/01/19 25 10/01/2024 CBC WITH DIFFE RENTI AL/PL ATELE T baso (absolute) 0.1 x10e3 /uL 0.0-0. 2 Not Available [facility] ([facility]) [address] [facility], [place], [address], 10/01/2024 08:24:19 10/01/19 25 10/01/2024 CBC WITH DIFFE RENTI AL/PL ATELE T immature granulocytes 1 % notest ab. Not Available [facility] ([facility]) [address] [place], [address], 10/01/2024 08:24:19 10/01/19 25 10/01/2024 CBC WITH DIFFE RENTI AL/PL ATELE T immature grans (abs) 0.1 x10e3 /uL 0.0-0. 1 Not Available [facility] ([facility]) [address] [place], [address], 10/01/2024 08:24:19 02/25/20 24 03/09/2019 PFT, compl ete No observ ation record ed. [email or web address] [facility] [address] [place], [address], 02/27/2024 21:30:57 Result Notes None recorded. Problems Name Problem SNOMED Code Status Onset Date Resolution Date Notes Provider Name and Address Organization Details Recorded Time Low back pain 211051979 Active 2020 Not Available [facility] 3 17:06:31 At increased risk of nutritiona l deficit 857216185 Active 2021 Not Available [facility] 3 17:06:31 HIV screening Active 2021 Not Available [facility] 3 17:06:31 Chronic hypoxemic respirator y failure 267461311 Active 2023 Satinder Valdez MD Attn: Accounting ,[address] [place], [place], [address] [place] [address] , [facility] 4 22:10:22 HIV screening declined 4284912370863 00 Active 2023 Satinder Valdez MD Attn: Accounting ,[address] [place], [address] , [facility] 4 14:50:08 Mammogram declined 517582280 Active 2023 Satinder Valdez MD Attn: Accounting ,[address] [place], [place], [address] [place] [address] , [facility] 4 14:50:09 Colonoscop y declined 3124433043088 00 Active 2023 Satinder Valdez MD Attn: Accounting ,[address] [place], [address] , [facility] 4 14:50:10 Influenza vaccinatio n declined 558477184 Active 2023 Satinder Valdez MD Attn: Accounting ,[address] [place], [place], [address] [place] [address] , [facility] 4 14:50:12 SARS-CoV-2 vaccinatio n declined 6147408949 Active 2023 Satinder Valdez MD Attn: Accounting ,[address] [place], [address] , [facility] 4 14:50:13 Lung cancer screening declined 9494196015648 9105 Active 2023 Satinder Valdez MD Attn: Accounting ,[address] , [place], [address] , [facility] 4 14:50:14 Chronic obstructiv e pulmonary disease 81842142 Active Not Available [facility] 3 17:06:31 Gastroesop hageal reflux disease 655384993 Active Not Available [facility] 3 17:06:31 Tobacco user 105100737 Active Not Available [facility] 3 17:06:31 Obesity 707252092 Active Not Available [facility] 3 17:06:31 Hyperlipid emia 06617454 Active Not Available [facility] 3 17:06:31 Depressive disorder 72139663 Active 2016 Not Available [facility] 3 17:06:31 Bronchitis 38062374 Active 2016 Not Available [facility] 3 17:06:31 Notes:Some problems listed i n Document: #[id number] could not be added to this patient's chart. Please review this document and add these problems to the patient's chart manually as needed. Problem Notes None recorded. Procedures Surgical History Date Name Laterality Status Provider Name and Address Organization Details Recorded Time Caesarean Section completed Jacki Gipson MA [facility] 11/16/2014 14:25:00 Cholecystectomy completed Jacki Gipson MA [facility] 11/16/2014 14:25:00 Imaging Results Imaging Date Name Status LastModified by Organiz ation Details LastModified Time 03/09/2019 PFT, complete completed [address] [place], [address], 02/27/2024 21:30:57 Procedure Notes None recorded. Medical Equipment None Reported. Allergies Allergen ID Allergen Name Allergen Category Reaction Reaction Severity Criticality Documentation Date Start Date Code Code System Note Provider Name and Address Organization Details Recorded Time 214109 codeine medicatio n itching moderate Not available 2024 2670 [facility] Wendy Revaes MA null, [place] - [facility] 12:17:26 Medications Name Sig Start Date Stop Date Status Note LastModified by Organization Details LastModified Time Prescript ion - Renewal 11/28 completed Not Available Not Available Not Available Prescript ion - Prior Authoriza tion Request active Not Available Not Available Not Available atorvasta tin 40 mg tablet TAKE 1 TABLET BY MOUTH EVERY DAY active Not Available Not Available No t Available Qvar 80 mcg/actua tion Metered Aerosol oral inhaler 1ppuff po BID-rins e mouth after 08/30 completed Not Available Not Available Not Available promethaz ine-DM 6.25 mg-15 mg/5 mL oral syrup Take 5 mL 3 times a day by oral route as needed for 10 days. 11/28 completed Not Available Not Available Not Available doxycycli ne hyclate 100 mg capsule TAKE 1 CAPSULE BY MOUTH TWICE DAILY FOR 7 DAYS 01/06 completed Not Available Not Available Not Available ipratropi um 0.5 mg-albute rol 3 mg (2.5 mg base)/3 mL nebulizat ion soln USE 3 ML VIA NEBULIZE R EVERY 8 HOURS NEEDED FOR SHORTNES S OF BREATH OR WHEEZING active Not Available Not Available No t Available albuterol sulfate 2.5 mg/3 mL (0.083 %) solution for nebulizat ion USE 1 VIAL VIA NEBULIZE R THREE TIMES DAILY NEEDED active Not Available Not Available No t Available azithromy roberta 250 mg tablet TAKE 2 TABLETS (500 MG) BY ORAL ROUTE ONCE DAILY FOR 1 DAY THEN 1 TABLET (250 MG) BY ORAL ROUTE ONCE DAILY FOR 4 DAYS 05/29 completed Not Available Not Available Not Available benzonata te 200 mg capsule Take 1 capsule 3 times a day by oral route for 10 days. 11/28 completed Not Available Not Available Not Available hydrocodo ne 5 mg-acetam inophen 325 mg tablet 08/30 completed Not Available Not Available Not Available prednison e 20 mg tablet TAKE 2 TABLETS BY MOUTH DAILY FOR 5 DAYS active Not Available Not Available No t Available doxycycli ne hyclate 50 mg capsule 01/06 completed Not Available Not Available Not Available permethri n 5 % topical cream 08/30 completed Not Available Not Available Not Available ciproflox acin 500 mg tablet Take 1 tablet every 12 hours by oral route for 10 days. 08/30 completed Not Available Not Available Not Available aspirin 81 mg tablet,de layed release TAKE 1 TABLET BY MOUTH EVERY MORNING active Not Available Not Available No t Available Depo-Medr ol 80 mg/mL suspensio n for injection 08/30 completed Not Available Not Available Not Available Kenalog 40 mg/mL suspensio n for injection Take 40 mg by injectio n route for 1 day. 08/30 completed Not Available Not Available Not Available meloxicam 7.5 mg tablet 08/30 completed Not Available Not Available Not Available citalopra m 20 mg tablet TAKE 1 TABLET BY MOUTH EVERY EVENING. TAKE 2 TO 3 HOURS BEFORE BEDTIME 01/06 completed Not Available Not Available Not Available hydrocodo ne 7.5 mg-acetam inophen 325 mg tablet 08/30 completed Not Available Not Available Not Available ranitidin e 150 mg tablet take one tablet by mouth twice daily 30 minutes before a meal 11/28 completed Not Available Not Available Not Available prednison e 50 mg tablet TAKE 1 TABLET BY MOUTH DAILY FOR COPD EXACERBA TION active Not Available Not Available No t Available nitroglyc johana 0.4 mg sublingua l tablet DISSOLVE 1 TABLET UNDER THE TONGUE EVERY 5 MINUTES FOR 3 DOSES NEEDED FOR CHEST PAIN active Not Available Not Available No t Available metoprolo l succinate ER 25 mg tablet,ex tended release 24 hr TAKE 1 TABLET BY MOUTH EVERY MORNING 01/06 completed Not Available Not Available Not Available levofloxa roberta 500 mg tablet 08/30 completed Not Available Not Available Not Available methylpre dnisolone 4 mg tablets in a dose pack FOLLOW PACKAGE DIRECTIO NS FOR 6 DAYS. 09/16 completed Not Available Not Available Not Available albuterol sulfate HFA 90 mcg/actua tion aerosol inhaler INHALE 2 PUFFS BY MOUTH THREE TIMES DAILY NEEDED active Not Available Not Available No t Available doxycycli ne hyclate 100 mg tablet TAKE 1 TABLET BY MOUTH EVERY 12 HOURS 01/06 completed Not Available Not Available Not Available naproxen 500 mg tablet TAKE 1 TABLET BY MOUTH TWICE DAILY WITH MEALS 01/06 completed Not Available Not Available Not Available amoxicill in 875 mg-potass ium clavulana te 125 mg tablet TAKE 1 TABLET BY MOUTH EVERY 12 HOURS 09/16 completed Not Available Not Available Not Available azithromy roberta 500 mg tablet 08/30 completed Not Available Not Available Not Available Spiriva with [employer] r 18 mcg and inhalatio n capsules 11/28 completed Not Available Not Available Not Available albuterol sulfate concentra te 2.5 mg/0.5 mL solution for nebulizat ion use one vial per nebulize r three xs per day as needed 11/28 completed 08/30/18 needs refilled today [facility] Not Available Not Available Not Available fluticaso ne propionat e 115 mcg-salme terol 21 mcg/actua tion HFA inhaler INHALE TWO PUFFS BY MOUTH EVERY TWELVE HOURS FOR BREATHIN G active Not Available Not Available No t Available Symbicort 160 mcg-4.5 mcg/actua tion HFA aerosol inhaler INHALE 2 PUFFS BY MOUTH TWICE DAILY. RINSE MOUTH AFTER USE active Not Available Not Available No t Available Dulera 200 mcg-5 mcg/actua tion HFA aerosol inhaler active Not Available Not Available Not Available Incruse Ellipta 62.5 mcg/actua tion powder for inhalatio n INHALE 1 PUFF BY MOUTH EVERY DAY active Not Available Not Available No t Available Vitals Date Recorded Body height Body mass index (BMI) Body weight Heart rate Oxygen saturation Oxygen saturation in Arterial blood by Pulse oximetry Systolic blood pressure Diastolic blood pressure Provider Name and Address Organization Details Last Updated DateTime 3 158.75 cm 32 kg/m2 52620.4 4 g 115 /min 96 % 96 % 128 mm[Hg] 80 mm[Hg] Pratibha Xiao [place] [facility] 3 14:34:55 Date Recorded Body height Body mass index (BMI) Body weight Oxygen saturation Oxygen saturation in Arterial blood by Pulse oximetry Body temperature Heart rate Systolic blood pressure Diastolic blood pressure Provider Name and Address Organization Details Last Updated DateTime 4 158.75 cm 31.8 kg/m2 80922.4 1 g 97 % 97 % 97.8 [degF] 94 /min 140 mm[Hg] 90 mm[Hg] Shaina Wise MA [facility] 4 15:25:13 Date Recorded Body height Body mass index (BMI) Body weight Heart rate Oxygen saturation Oxygen saturation in Arterial blood by Pulse oximetry Systolic blood pressure Diastolic blood pressure Provider Name and Address Organization Details Last Updated DateTime 4 158.75 cm 31.1 kg/m2 72930.0 4 g 96 /min 98 % 98 % 120 mm[Hg] 66 mm[Hg] Judy Tafoya MA [facility] 4 16:17:17 Date Recorded Body height Body mass index (BMI) Body weight Oxygen saturation Oxygen saturation in Arterial blood by Pulse oximetry Heart rate Systolic blood pressure Diastolic blood pressure Provider Name and Address Organization Details Last Updated DateTime 4 158.75 cm 32.8 kg/m2 90560.8 9 g 98 % 98 % 90 /min 124 mm[Hg] 72 mm[Hg] Wendy Ritchie MA [facility] 4 12:38:08 Date Recorded Body height Body mass index (BMI) Body weight Heart rate Oxygen saturation Oxygen saturation in Arterial blood by Pulse oximetry Systolic blood pressure Diastolic blood pressure Provider Name and Address Organization Details Last Updated DateTime 5 158.75 cm 34.3 kg/m2 36871.7 1 g 107 /min 93 % 93 % 138 mm[Hg] 76 mm[Hg] Wendy Reaves MA [facility] 5 12:23:06 Social History Question Answer Notes LastModified by Organizat ion Details LastModified Time Tobacco Smoking Status Current Every Day Smoker ELODIA Navarro, [facility] 11/16/2014 14:25:00 Do You Have An Advance Directive? No Information not available 11/16/2014 What Is Your Level Of Alcohol Consumption? Occasional Information not available 11/16/2014 Are You Blind Or Do You Have Difficulty Seeing? No Information not available 11/16/2014 What Is Your Level Of Caffeine Consumption? Heavy Information not available 11/16/2014 How Much Tobacco Do You Chew? None Information not available 11/16/2014 In The 14 Days Before Symptom Onset, Have You Had Close Contact With A Laboratory-confir med COVID-19 While That Case Was Ill? No Information not available 02/24/2024 In The 14 Days Before Symptom Onset, Have You Had Close Contact With A Person Who Is Under Investigation For COVID-19 While That Person Was Ill? No Information not available 02/24/2024 Have You Been To An Area Known To Be High Risk For COVID-19? No Information not available 02/24/2024 Are You Currently Employed? No Information not available 02/24/2024 Are You Deaf Or Do You Have Serious Difficulty Hearing? No Information not available 11/16/2014 What Type Of Diet Are You Following? REGULAR Information not available 11/16/2014 Education 11 Information no t available 11/16/2014 Are There Any Guns Present In Your Home? No Information not available 11/16/2014 Hard Of Hearing Or Deaf In One Or Both Ears? No Information not available 11/16/2014 Legally Blind In One Or Both Eyes? No Information no t available 11/16/2014 Marital Status Informatio n not available 11/16/2014 What Was The Date Of Your Most Recent Tobacco Screening? 2024 Information not available 2024 Performs Monthly Self-breast Exam? Yes Information no t available 11/16/2014 Do You Use Your Seat Belt Or Car Seat Routinely? Yes Information not available 02/24/2024 Seat Belts Used Routinely Yes Information not available 11/16/2014 Smoke Alarm In Home Yes Information not available 11/16/2014 Do You Have Smoke And Carbon Monoxide Detectors In Your Home? Yes Information not available 02/24/2024 At What Age Did You Start Smoking Tobacco? 16 Information not available 01/07/2024 How Much Tobacco Do You Smoke? 0.5 PPD A Little Under A Half Pack Information not available 12/12/2020 General Stress Level Medium Information not available 11/16/2014 Do You Use Any Illicit Or Recreational Drugs? No Information not available 02/24/2024 Do You Use Sunscreen Routinely? No Information not available 11/16/2014 Has Tobacco Cessation Counseling Been Provided? Yes Information not available 12/12/2020 On What Date Was Tobacco Cessation Counseling Provided? 2024 Information not available 2024 How Many Years Have You Smoked Tobacco? 30 Information not available 01/07/2024 Do You Or Have You Ever Used Any Other Forms Of Tobacco Or Nicotine? No Information not available 2024 Sex: Female Functional Status Question Answer Note LastModified by Organization D etails LastModified Time Do you have difficulty walking or climbing stairs? No Information not available 11/16/2014 Do you have difficulty doing errands alone? No Information not available 11/16/2014 Do you have difficulty dressing or bathing? No Information not available 11/16/2014 What is your exercise level? None Information not available 11/16/2014 Mental Status Question Answer Note LastModified by Organization D etails LastModified Time Do you have difficulty concentrating, remembering or making decisions? No Information no t available 11/16/2014 Family History Nothing Reported. Medical History Condition Response COPD Y Have you had a mammogram in the last yea r? N Have you had a colonoscopy in the last 1 0 years? N Asthma Y Gynecological HistoryNo gynecological history recorded. Obstetrics History GPAL:G 0 P 0 0 0 0 Immunizations Vaccine Type Date Status Note Provider Nam e and Address Organization Details Recorded Time Tdap 11/17/20[address] completed [address] Baumann MA [facility], [place] - [facility] 2024 09:41:35 Past Encounters Encounter ID Performer Location Encounter Start Date Encounter Closed Date Diagnosis/Indication Diagnosis SNOMED-CT Code Diagnosis ICD10 Code Diagnosis Note [id number] MARILEE Howard (Adult Med) [address] [place] [address] 47120-810 0 11/16/2014 14:11:25 11/16/2014 17:25:43 Chronic obstructive pulmonary disease 62397654 Gastroesop hageal reflux disease 529278393 Tobacco user 592993672 Obesity 106680705 Hyperlipidemia 64374844 [id number] MARILEE Howard (Adult Med) [address] [place] [address] 98634-122 0 02/25/2016 14:30:31 02/25/2016 18:01:33 Chronic obstructive pulmonary disease 45272429 J44.9 Gastroesop hageal reflux disease 477438835 K21.9 Hyperlipidemia 29863938 E78.5 Obesity 268889501 E66.9 Tobacco user 546834840 Z 72.0 Normal grief reaction 27 4381547 F43.20 [id number] MD Terri Almonte (Adult Med) [address] [place] [address] 70341-709 0 11/13/2016 14:27:12 11/13/2016 17:33:33 Chronic obstructive pulmonary disease 17865353 J44.9 Gastroesop hageal reflux disease 927030233 K21.9 Obesity 580744269 E66.9 Hyperlipidemia 69480801 E78.5 Depressive disorder 3548 9007 F32.89 grief reaction , lost mom last November) [id number] MD Terri Almonte (Adult Med) [address] [place] [address] 75104-296 0 04/16/2017 15:05:45 04/20/2017 09:00:22 Chronic obstructive pulmonary disease 53856518 J44.9 Bronchitis 65992083 J40 Gastroesop hageal reflux disease 994180639 K21.9 Obesity 721942591 E66.9 Hyperlipidemia 22301214 E78.5 [id number] MD Terri Almonte (Adult Med) [address] [place] [address] 22815-625 0 03/16/2018 16:39:42 03/17/2018 10:11:16 Bronchitis 59740278 J40 Chronic ob structive pulmonary disease 45927723 J44.9 Depressive disorder 3548 9007 F32.89 grief reaction , lost mom last November (2015) Tobacco user 390111772 Z 72.0 Gastroesop hageal reflux disease 725876916 K21.9 Obesity 008157644 E66.9 Hyperlipidemia 00171453 E78.5 [id number] MD Terri Almonte (Adult Med) [address] [place] [address] 42557-323 0 08/30/2018 16:13:03 08/31/2018 08:48:16 Bronchitis 56114339 J40 Tobacco user 102431737 Z 72.0 Chronic ob structive pulmonary disease 89999439 J44.9 Gastroesop hageal reflux disease 985783649 K21.9 Obesity 947771384 E66.9 Hyperlipidemia 07438325 E78.5 Depressive disorder 3548 9007 F32.89 grief reaction , lost mom last November (2015) [id number] MD Terri Almonte (Adult Med) [address] [place] [address] [id number] 0 09/26/2019 10:47:45 09/27/2019 08:42:42 Chronic obstructive pulmonary disease 10081920 J44.9 Gastroesop hageal reflux disease 343383639 K21.9 Hyperlipidemia 28043956 E78.5 Tobacco user 810199036 Z 72.0 [id number] MD Terri Almonte (Adult Med) [address] [place] [address] 37148-347 0 07/10/2020 08:17:48 07/10/2020 16:38:50 Chronic obstructive pulmonary disease 79805046 J44.9 Gastroesop hageal reflux disease 919954339 K21.9 Hyperlipidemia 36471676 E78.5 Tobacco user 114912143 Z 72.0 Depressive disorder 3548 9007 F32.89 grief reaction , lost mom last November (2015) [id number] MD Terri Almonte (Adult Med) [address] [place] [address] 33130-680 0 12/12/2020 10:01:54 12/12/2020 13:53:29 Chronic obstructive pulmonary disease 71818610 J44.9 Gastroesop hageal reflux disease 315362252 K21.9 Hyperlipidemia 65997921 E78.5 Tobacco user 930666804 Z 72.0 Low back pain 674260115 M54.5 [id number] MD Terri Almonte (Adult Med) [address] [place] [address] 33144-300 0 07/22/2021 14:57:13 07/22/2021 15:30:47 Chronic obstructive pulmonary disease 98670657 J44.9 Gastroesop hageal reflux disease 237193666 K21.9 Hyperlipidemia 77910033 E78.5 Tobacco user 965787732 Z 72.0 Obesity 091833875 E66.9 Renewal of prescription 291810880 Z76.0 Low back pain 152318141 M54.50 At [facility] [place] risk of nutritional deficit 275145260 Z91.89 Depressive disorder 3548 7 F32.89 grief reaction , lost mom last November) [id number] Rosi Begum MD [facility] (Adult Med) [address] [place] [address] 12191-518 0 04/01/2022 16:13:01 04/02/2022 10:16:26 Bronchitis 17422192 J40 Chronic ob structive pulmonary disease 21432622 J44.9 Depressive disorder 35477 F32.89 grief reaction , lost mom last November (2015) Gastroesop hageal reflux disease 899371424 K21.9 Hyperlipidemia 34100648 E78.5 Low back pain 698590660 M54.50 Obesity 053411381 E66.9 Tobacco user 829574653 Z 72.0 At [facility] ed risk of nutritional deficit 610902478 Z91.89 HIV screening 708995943 Z11.4 [id number] Rosi Begum MD [facility] (Adult Med) [address] [place] [address] 02638-282 0 08/07/2022 16:27:29 08/08/2022 15:12:17 Obesity 934124910 E66.9 BMI is 33.5.he has been advised to watch her diet, exercise and keep the weight down. Chronic ob structive pulmonary disease 85205042 J44.9 Stable.Wan ts to refill med. Depressive disorder 3541 3867 F32.89 Under the care of her psychiatri st. Hyperlipidemia 56868309 E78.5 Low animal fat diet. Tobacco user 059039979 Z 72.0 Advised her to quit smoking. Colon canc er screening declined 5833287852 9109 Z53.20 She refused 08-07-2022 . Administra tion of diphtheria, pertussis, and tetanus vaccine 787877724 Z23 She refused 08-07-2022 . Influenza vaccination declined 495001323 Z28.21 She refused 08-07-2022 . Mammogram declined 63954 5004 Z53.20 She refused 08-07-2022 , Screening for malignant neoplasm of cervix 690605771 Z12.4 She refused 08-07-2022 . [id number] Rosi Begum MD [facility] (Adult Med) [address] [place] [address] 01320-860 0 02/25/2023 16:38:06 02/26/2023 14:14:06 Osteoarthritis 225927920 M19.90 She said that she has arthritis , it huts when weather changes, wants shot term steroid to easy the pain of back. . Discussed with patient, that steroid has potential side effects as well. such as pathologic fracture, hyperglyce jacinto, bleeding ulcer, poor healing of wound, adrenal insufficie ncy just new a few, She understood . Chronic ob structive pulmonary disease 14154254 J44.9 Stable.Andrés ts to refill med.Advair is not on [address], will order dulera instead. Smoker 31383789 F17.200 Advised her to quit smoking. She declined LDCT, she smokes half pack/day for more than 40 years. She is aware of cigarettes smoking can cause permanent emphysema. cancer of lung, throat, or mouth and other diseases. Obesity 612661858 E66.9 BMI is 33.5.he has been advised to watch her diet, exercise and keep the weight down. As 02-25-23, BMI is down to 32.5. HIV screen ing declined 6716632881 29881 Z53.20 She declined 02-25-23. [id number] Rosi Begum MD [facility] (Adult Med) [address] [place] [address] 76805-120 0 05/29/2023 14:29:10 06/02/2023 16:10:16 Chronic obstructive pulmonary disease 53247935 J44.9 Stable.Wan ts to refill med.Advair is not on [address], will order dulera instead. She wants advair inhaler refill, but it is not on the list. and this provider contacted medicare pharmacy no maintenanc e inhaler yael 340-B list any more. Smoker 42190377 F17.200 Advised her to quit smoking. She declined LDCT, she smokes half pack/day for more than 40 years. She is aware of cigarettes smoking can cause permanent emphysema. cancer of lung, throat, or mouth and other diseases. Hyperlipidemia 33838744 E78.5 Low animal fat diet. Obesity 162363474 E66.9 BMI is 33.5.he has been advised to watch her diet, exercise and keep the weight down. As 02-25-23, BMI is down to 32.5. As 05-29-23, BMI down to 32. Mammogram declined 86800 5004 Z53.20 She refused 08-07-2022 , She declined 05-29-23. Cervical c ancer Papanicolaou smear screening declined 3245643596 00220 Z53.20 She declined 05-29-23. Colon canc er screening declined 0650788249 9109 Z53.20 She refused 08-07-2022 . She declined 05-29-23. HIV screen ing declined 1311970885 69771 Z53.20 She declined 02-25-23. She declined 05-29-23. [id number] Satinder Valdez MD [facility] [address] [place] [address] 01/07/2024 14:34:10 01/07/2024 16:25:53 Depression screening 890026697 Z13.31 Chronic ob structive pulmonary disease 61498961 J44.9 Chronic hy poxemic respiratory failure 514031842 J96.11 Hyperlipidemia 90003571 E78.5 [id number] MD Terri Turner (Adult Med) [address] [place] [address] 32241-430 0 02/24/2024 15:59:57 02/24/2024 17:12:39 Smoker 84351873 F17.200 Chronic ob structive pulmonary disease 49487311 J44.9 [id number] MD Terri Turner (Adult Med) [address] [place] [address] 08158-824 0 04/29/2024 12:05:20 04/29/2024 13:35:35 Hyperlipidemia 37011435 E78.5 Chronic ob structive pulmonary disease 78390445 J44.9 HIV screen ing declined 0381164071 97748 Z53.20 Mammogram declined 19390 5004 Z53.20 Colonoscopy declined 567 9190615 02734 Z53.20 Influenza vaccination declined 740717126 Z28.21 SARS-CoV-2 vaccination declined 3498571395 Z28.21 Lung cance r screening declined 4708455625 3847198 Z53.20 [id number] Satinder Valdez MD [facility] (Adult Med) [address] [place] [address] 93170-422 0 2024 11:44:40 2024 13:19:13 Body mass index 30+ - obesity 088648196 Z68.34 Hyperlipidemia 68651689 E78.5 Long-term drug therapy 497589398 Z79.899 Chronic ob structive pulmonary disease 10303708 J44.9 Gastroesop hageal reflux disease 027600871 K21.9 Health Concerns Section Related Observation LastModified by Organization Detai ls LastModified Time None Recorded Concern Status LastModified by Organization Details LastModified Time None Recorded Advance Directives Directive N: Payers Encounter Date Sequence Insurance Name Policy Number Policy Ford Covered Member ID Ford Member ID Guarantor Name 05/29/2023 1 [facility] ON OR AFTER 07/13/2020 - DUAL ELIGIBLE (MEDICARE REPLACEMENT/ADVANT AGE - HMO) [id number] Minnie Anguiano [id number] Minnie Anguiano 05/29/2023 2 [employer] [place] (MEDICARE REPLACEMENT/ADVANT AGE) Minnie Anguiano [id number] Minnie Anguiano 01/07/2024 1 [facility] ON OR AFTER 07/13/2020 - DUAL ELIGIBLE (MEDICARE REPLACEMENT/ADVANT AGE - HMO) [id number] Minnie Anguiano [id number] Minnie Anguiano 01/07/2024 2 [employer] [place] (MEDICARE REPLACEMENT/ADVANT AGE) Minnie Anguiano [id number] Minnie Anguiano 02/24/2024 1 [facility] ON OR AFTER 07/13/2020 - DUAL ELIGIBLE (MEDICARE REPLACEMENT/ADVANT AGE - HMO) [id number] Minnie Anguiano [id number] Minnie Anguiano 02/24/2024 2 [facility] DUAL ELIGIBLE - [place] (MEDICARE REPLACEMENT/ADVANT AGE) Minnie Silvio [id number] Minnie Silvio 04/29/2024 1 [facility] ON OR AFTER 07/13/2020 - DUAL ELIGIBLE (MEDICARE REPLACEMENT/ADVANT AGE - HMO) [id number] Minnie Schultz Silvio [id number] Minnieterrence Anguiano 2024 1 [facility] ON OR AFTER 07/13/2020 - DUAL ELIGIBLE (MEDICARE REPLACEMENT/ADVANT AGE - HMO) [id number] Minnie Schultz Silvio [id number] Minnieterrence Anguiano Notes Date Note Type Note Provider Name and Address Organization Details Recorded Time 05/29/2023 text/html Office visit, [place]. copd, SMOKES HALF PK/DAY SHE SAID. has sinus congestion, wants short term steroid. and inhaler refill. No chest pain, no difficulty of breathing. no fever. Came with her daughter. Other solomon no complaints. ROS as noted in HPI. Rosi Begum MD Attn: Accounting,[address] [facility], [place], [address], [place] 05/29/2023 15:36:32 01/07/2024 text/html follow-up medica l problems interval history cardiac cath 20% lad aspirin atorvastatin metoprolol discontinued by Cardiology COPD 2 L oxygen continues to smoke breathing stable Satinder Valdez MD Attn: Accounting,[address] [facility], [place], [address], [place] - [place] 01/07/2024 22:13:28 02/24/2024 text/html ER for a COPD flare-up we do not have the records she is doing a little bit better she just quit smoking about 4 days ago she has not had any chest pain breathing has improved Satinder Valdez MD Attn: Accounting,[address] [facility], [place], [address], [place] - [place] 02/24/2024 21:44:51 04/29/2024 text/html COPD she has bee n doing pretty good with that stable. Dyslipidemia needs her atorvastatin refilled she can do better on a low-fat Satinder Valdez MD Attn: Accounting,[address] [facility], [place], [address], [facility] 04/29/2024 14:50:42 2024 text/html COPD has been doing fairly well. Dyslipidemia she quit taking atorvastatin can not really tell me why rhinitis doing good on fluticasone. GERD denies any heartburn Satinder Valdez MD Attn: Accounting,[address] [facility], [place], [address], [facility] 2024 16:22:07 OBGyn Episode No OBEpisode recorded.
--- OUTSIDE RECORDS SUMMARY | 2024-11-10 03:49 | XMS_ITS | Encounter Summary ---
Author Organization [facility] Healthcare Address [address] [place] [address] Care Team Providers Care Diamond Powder Mixer Name Role Phone No, Physician Primary Care Provider [phone] Parish Valdez MD Primary Care Provider [phone] Encounter Details Date Type Department Care Team (Late st Contact Info) Description 10/27/2023 Orders Only [facility] Health Information Management [address] [place] [address] Parish Downing MD [address] [facility] [address] [place] [address] Social History Tobacco Use Types [...] Procedure Name Priority Date/Time Associated Diagnosis Comments CARDIOLOGY DOCUMENT SCAN 10/27/2023 documented in this encounter Results * Cardiology Document Scan (10/27/2023) Anatomical Region Laterality Modality Other us Parish Downing MD [facility] CARDIAC SERVICES PROC EDURES Final Result documented in this encounter Visit Diagnoses Not on filedocumented in this encounter Care Teams Diamond Powder Mixer Relationship Specialty Start Date End Date No, Physician PCP - General 10/26/23 12/31/23 Parish Valdez MD [address] [place] [address] PCP - General Internal Medicine 01/01/24 documented as of this encounter
--- OUTSIDE RECORDS SUMMARY | 2024-11-10 03:49 | XMS_ITS | Encounter Summary ---
Author Organization [facility] Healthcare Address [address] [place] [address] Care Team Providers Care Manager Salt Name Role Phone No, Physician Primary Care Provider [phone] Parish Valdez MD Primary Care Provider [phone] Encounter Details Date Type Department Care Team (Late st Contact Info) Description 10/28/2023 Orders Only [facility] [place] [address] [place] [address] Cooper Mathias MD [address] [place] [address] [id number] Social History Tobacco Use Types Packs/Day Years [...] Date/Time Associated Diagnosis Comments CARDIOLOGY DOCUMENT SCAN 10/28/2023 documented in this encounter Results * Cardiology Document Scan (10/28/2023) Anatomical Region Laterality Modality Other Cooper Mathias MD CV CARDIAC SERVICES [facility] Final Result documented in this encounter Visit Diagnoses Not on filedocumented in this encounter Care Teams Manager Salt Relationship Specialty Start Date End Date No, Physician PCP - General 10/26/23 12/31/23 Parish Valdez MD [address] [place] [address] PCP - General Internal Medicine 01/01/24 documented as of this encounter
--- OUTSIDE RECORDS SUMMARY | 2024-11-10 03:49 | XMS_ITS | CONTINUITY OF CARE DOCUMENT ---
Author Name alvaro john Address Unknown Organization [facility] Address [address] [place] [address] [address] [place] [address] Phone [phone] Care Team Providers Care Entry Level Sales Associate Name Role Phone MARGARET GABRIEL MD Unavailable MARGARET GABRIEL MD Unavailable [phone] INSURANCE PROVIDERS Payer name Policy type / Coverage type Swathi red democrat [employer] Medicaid 1 [id number]
--- OUTSIDE RECORDS SUMMARY | 2024-11-10 03:49 | XMS_ITS | Clinical Summary ---
Author Organization [facility] Address [address] [place] [address] Care Team Providers Care Service Engineer Name Role Phone Ethan Cerrato Primary Care Provider + Source Comments [facility],non-owned Affiliates and Associated Physician Practices is amultiple site organization consisting of ambulatory clinics and hospital sitesin [place], [place] and [place]. This disclosure is being madepursuant to the Care Everywhere program and may not contain all information available regarding this patient. Last updated 18.[facility] Allergies No known active allergies Medications * Be aware that medications may not be up to date on this document. Alwaysverify current medications with the patient. Budesonide-Formot champ Fumarate (SYMBICORT IN) Activ e albuterol HFA (PROVENTIL;VENTOL IN;PROAIR) 108 (90 BASE) MCG/ACT inhalerIndication s:Acute exacerbation of COPD with asthma (HCC) Inhale 2 puffs by mouth every 4 hours as needed 1 Inhaler 8 Active azithromycin (ZITHROMAX) 250 MG tabletIndications :Acute exacerbation of COPD with asthma (HCC) Take 2 tablets now, then 1 tablet daily for 4 days. 6 tablet 8 Active budesonide-formot champ (SYMBICORT) 160-4.5 MCG/ACT inhalerIndication s:Acute exacerbation of COPD with asthma (HCC) Inhale 1 puff by mouth 2 times daily 1 Inhaler 8 Active Social History Tobacco Use Types Packs/Day Years Used Date Smoking Tobacco: Every Day Smokeless Tobacco: Never Comments No Sex and Gender Information Value Date Recorded Sex Assigned at Not on file Legal Sex Female 8:53 AM GATEKEEPER Gender Identity Not on file Sexual Orientation Not on file Last Filed Vital Signs Vital Sign Reading Time Taken Comments Blood Pressure 122/80 07/25/2017 10:47 AM GATEKEEPER Pulse 80 07/25/2017 10:47 AM GATEKEEPER Temperature 36.8 C (98.2 F) 07/25/2017 10:47 AM GATEKEEPER Respiratory Rate 20 07/25/2017 10:47 AM GATEKEEPER Oxygen Saturation 94% 07/25/2017 10:47 AM GATEKEEPER Inhaled Oxygen Concentration - - Weight 74.8 kg (165 lb) 07/25/2017 10:47 AM GATEKEEPER Height 160 cm (5' 3 ) 07/25/2017 10:47 AM GATEKEEPER Body Mass Index 29.23 07/25/2017 10:47 AM GATEKEEPER Plan of Treatment Health Maintenance Due Date Last Done Comments COLOGUARD (AGES 45-75) - COL ON CA SCREENING 1960 COLON MONITORING 1960 COLONOSCOPY - COLON CA SCREENING 1960 CT COLONOGRAPHY - COLON CA SCREENING 1960 Colorectal Cancer Screening 1960 FIT - COLON CA SCREENING 1960 FLEX SIG - COLON CA SCREENING 1960 LIPID TESTING 1960 MAMMOGRAM 1960 HIV SCREENING 09/17/1975 HEPATITIS C SCREENING 09/12/1978 DTAP/TDAP/TD VACCINES (1 - Tdap) 09/17/1979 PNEUMOCOCCAL VACCINE 50+ (1 of 1 - PCV) 2010 ZOSTER VACCINE (1 of 2) 2010 SCREENING FOR DIABETES 07/25/2017 COVID-19 VACCINE (1 - 2023-2 5 season) 2024 DEPRESSION SCREENING 07/13/2024 INFLUENZA VACCINE (Season Ended) 2025 Respiratory Syncytial Virus (RSV) Vaccine Pt: or over 60 yrs (1 - 1-dose 75+ series) 09/17/2035 HEPATITIS B VACCINE Aged Out No longe r eligible based on patient's age to complete this topic HIB VACCINE Aged Out No longer eligi ble based on patient's age to complete this topic HPV VACCINE Aged Out No longer eligi ble based on patient's age to complete this topic MENINGOCOCCAL (Group B) VACC INE SHARED DECISION-MAKING Aged Out No longer eligibl e based on patient's age to complete this topic MENINGOCOCCAL GROUPS A/C/Y/W VACCINE Aged Out No longer eligible b ased on patient's age to complete this topic Insurance [facility] Care Teams Service Engineer Relationship Specialty Start Date End Date Ethan Cerrato PA [address] [place] [address] PCP - General Physician Employee Relations Specialist 07/25/17
[2024-11-10 03:50] LABS: Expiratory Pressure 6 cmH2O; Inspiratory Pressure 12 cmH2O
[2024-11-10 03:51] LABS: Basophils Absolute Auto 0.1 K/mm3 (0.0-0.1); Basophils Percent Auto 0.6 % (0.2-1.2); Eosinophils Absolute Auto 0.3 K/mm3 (0-0.3); Eosinophils Percent Auto 2.6 % (0-4.4); Hematocrit 53.3 % (37.0-47.0); Immature Granulocyte Absolute 0.04 K/mm3 (0.00-0.031); Immature Granulocyte Percent A 0.3 % (0-0.5); Lymphocytes Percent Auto 37.5 % (18.3-44.2); Mean Corpuscular HGB Conc 31.9 g/dl (32-36); Mean Corpuscular Hemoglobin 32.2 pg (26-34); Mean Corpuscular Volume 100.9 fl (80-100); Mean Platelet Volume 9.8 fl (7.4-10.4); Monocytes Absolute Auto 0.7 K/mm3 (0.1-0.6); Monocytes Percent Auto 5.4 % (2.6-8.5); Neutrophils Percent Auto 53.6 % (45.5-73.1); Platelet Count Result 251 k/mm3 (150-375); Red Blood Count 5.28 M/mm3 (4.2-5.4); Red Cell Distribution Width 13.8 % (11.5-14.5); White Blood Count 13.1 K/mm3 (4.5-10.0)
[2024-11-10 04:02] LABS: Alanine Aminotransferase 20 U/L (6-35); Albumin Level 4.4 g/dL (3.5-5.1); Alkaline Phosphatase 90 U/L (38-126); Anion Gap 7 mmol/L (4-12); Aspartate Amino Transferase 23 U/L (14-36); Bilirubin,Total 0.7 mg/dL (0.2-1.3); Blood Urea Nitrogen 9 mg/dL (7-17); Calcium 9.1 mg/dL (8.4-10.2); Carbon Dioxide 31 mmol/L (22-30); Chloride 101 mmol/L (98-107); Estimated CRCL calculation 55 ml/min; Estimated Glomerular Filt Rate 59; Glucose 126 mg/dL (65-110); Potassium 3.7 mmol/L (3.4-5.0); Sodium 139 mmol/L (137-145)
[2024-11-10 04:06] LABS: INR 0.9; Prothrombin Time 12.6 Seconds (11.1-14.7)
[2024-11-10 04:07] LABS: Partial Thromboplastin Time 25.1 Seconds (22.3-36.8)
--- NOTE | 2024-11-10 04:07 | PCRCNOTE ---
Patient arrived via ambulance in respiratory distress on NRB 10 L/min. Placed on V60, BiPAP, 12/6, RR14, 50%. Patient states she has random panic attacks sometimes. VBG and a sedative. Continous Nebulizer on hold.
[2024-11-10] MEDS: LORazepam INJ (*CRX) 2 MG/ML VIAL 1 MG IV PUSH (05:09)
[2024-11-10] MEDS: SODIUM CHLORIDE 0.9% IV 1,000 ML 999 ML IV CONT (05:10)
--- NOTE | 2024-11-10 05:42 | ECG_ITS ---
Test Date: 2024-11-10 05:47:43 Measurements Intervals [place] Rate: 97 P: 51 IN: 132 QRS: 69 QRSD: 76 T: 48 QT: 340 QTc: 433 Interpretive Statements SINUS RHYTHM Compared to ECG 11/10/2024 03:42:14 ST (T wave) deviation no longer present Electronically Signed On 11-11-2024 18:56:13 CDT by Jensen Peterson
--- NOTE | 2024-11-10 05:54 | PC.NURSE ---
This RN spoke with EDP. EDP stated we do not need blood cultures
[2024-11-10] MEDS: DOXYCYCLINE 100 MG/NS 100 ML 100 MG/100 ML BAG IVPB ×2 (05:57→17:34)
[2024-11-10 06:16] LABS: Influenza A QL RT-PCR Negative (Negative); Influenza B QL RT-PCR Negative (Negative); RSV RNA, RT-PCR Negative (Negative); SARS-CoV-2 RNA PCR Negative (Negative)
--- NOTE | 2024-11-10 06:48 | ADMGEN ---
This patient, Minnie Anguiano, was admitted to IMU Room 232-01. Patient/family oriented to hospital policies and general routines including ID bracelet, bed and alarms, visiting hours, pain management, procedures, bathroom and other care routines, personal items, smoking policy, room service/diet, and visiting hours. Information on how to activate the Rapid Response Team has been discussed. Patient/Family are encouraged to report perceived risks to care and to ask questions if they do not understand what they are told or what they should do.
--- NOTE | 2024-11-10 07:57 | PM.IMHP ---
H&P: HPI History of Present Illness Date/Time: 11/10/24 07:57 Chief Complaint: SOB Narrative: 64-year-old female with history of anxiety, COPD/asthma presented to ED due to severe respiratory distress.Patient baseline 2L PRN home oxygen. Patient patient use albuterol and Advair at home. Patient reports of several days of respiratory distress that has worsened this morning. Patient denies any history of CHF. Patient was given subcutaneous terbutaline for severe respiratory distress by EMS and started on Solu-Medrol and albuterol. Pertinent ED labs: WBC 13.1, hemoglobin 17, hematocrit 53, sodium 139, potassium 3.7, creatinine 0.96 Chest x-ray shows left-sided consolidation appears to Vital signs improved and stable RSV COVID flu negative Patient is a admitted in the setting of COPD exacerbation possibly due to pneumonia. Patient was previously on BiPAP but currently on nasal cannula 2 L. patient was talking of a pack to 1 pack per day for long period of time. Patient was never seen a lcac operator and underwent PFTs. Patient reports she underwent cardiac catheterization last year but did not show any significant findings and she follows up with Dr. Downing but recommended her to follow as needed. Patient also has a history of anxiety disorder but was advised by PCP to follow-up with the psychiatrist. Patient will be started on buspirone 10 mg p.o. b.i.d. and advised to follow-up with psychiatrist as outpatient. [employer] was consulted due to COPD exacerbation. Dr. Ragsdale evaluated the patient and perform D-dimer which was negative. He also ordered CT scan without contrast. Patient started on prednisone,ceftriaxone and doxycycline. Blood cultures to follow. Review of Systems Review of Systems: As reviewed above in HPI [facility] Past Medical History Medical History Tobacco abuse Chronic obstructive pulmonary disease Coronary artery disease (10/2023) Nuclear stress test showed a large, severe non reversible infarcts including multiple meyers of the apex and mid anterior and mid posterior segments consistent with infarct with no reversible ischemia. Surgical History Surgical History History of section Family History Family History Mother Cerebrovascular accident Sibling FH: CABG (coronary artery bypass surgery) Father Stented coronary artery Social History Social History Social History: Surrogate medical decision maker: Meghan Babcock, daughter. Code status: Full code. Smoking packs per day: 1 Smoking cigarettes per day: 20.0 Years smoked: 47 Smoking pack-years: 47.00 Smoking status: Light tobacco smoker Second hand tobacco smoke exposure: Yes Alcohol intake: former Drinks per week: 12 Substance use: never Substance use type: does not use Do You Feel Safe in your Home?: Yes Lack of Transportation: No Lack of Food: Never True Current Housing: I Have Housing Concerned About Future Housing: No Difficulty Paying Gas/Electric Bills: No Difficulty Paying for Meds: No Currently Unemployed: No Education: High School Diploma/GED Difficulty w/ Childcare or Family Care: No Living arrangements: with family Spiritual care concerns: No Meds Home Medications and Allergies Home Medications ?Medication ?Instructions ?Recorded ?Confirmed ?Type albuterol sulfate 90 mcg/actuation 2 puff inhalation TID PRN 10/26/23 11/10/24 History aerosol inhaler Shortness Of Breath Or Wheezing fluticasone propionate 115 2 puff inhalation BID 10/26/23 11/10/24 History mcg-salmeterol 21 mcg/actuation HFA inhaler (Advair HFA) umeclidinium 62.5 mcg/actuation 1 inh inhalation DAILY 10/26/23 11/10/24 History blister powder for inhalation (Incruse Ellipta) aspirin 81 mg tablet,delayed 81 mg PO QAM #60 tabs 10/28/23 11/10/24 Rx release nitroglycerin 0.4 mg sublingual 0.4 mg sublingual Q5MIN PRN Chest 10/28/23 11/10/24 Rx tablet (Nitrostat) Pain #10 tabs ipratropium 0.5 mg-albuterol 3 mg 3 ml inhalation Q6HRT #30 dose pk 11/18/23 11/10/24 Rx (2.5 mg base)/3 mL nebulization soln atorvastatin 40 mg tablet 20 mg PO DAILY 11/10/24 11/10/24 History Allergies Allergy/AdvReac Type Severity Reaction Status Date / Time codeine AdvReac Itching Verified 02/15/24 15:52 Vital Signs Vital Signs - 24 hr 11/10/24 03:29 11/10/24 03:30 11/10/24 03:33 Temperature 98 F Pulse Rate 146 H 156 H Respiratory Rate 31 H 22 H Blood Pressure 119/99 H Pulse Oximetry 90 97 90 Oxygen Delivery Room Air BiPAP Room Air 11/10/24 03:33 11/10/24 03:33 11/10/24 03:36 Temperature Pulse Rate 148 H 153 H Respiratory Rate 24 H Blood Pressure 119/99 H Pulse Oximetry 97 99 Oxygen Delivery BiPAP 11/10/24 05:36 11/10/24 06:14 11/10/24 06:40 Temperature 97.2 F L Pulse Rate 108 H 102 H 101 H Respiratory Rate 15 20 17 Blood Pressure 94/66 L 111/67 106/83 Pulse Oximetry 98 98 97 Oxygen Delivery Exam Narrative: GENERAL: Respiratory distress, ill-appearing, tripod positioning, awake and answering questions HEAD: [Normocephalic, atraumatic.] EYES: [PERRLA and EOMI.] ENT: Nares clear, no rhinorrhea or epistaxis. Mucous membranes moist. NECK: Supple. CHEST: Diffuse scattered wheezing, prolonged expiration, tachypnea, tripod positioning HEART: Tachycardic rate and regular rhythm. No murmur heard. [Normal peripheral pulses.] ABDOMEN: [Soft, nondistended], [nontender], [No rigidity or guarding] EXTREMITIES: Normal range of motion. [No edema.] SKIN: Warm, dry, no rash. NEURO: [No focal deficits]. Alert and oriented [x3.] PSYCH: [Normal mood and affect.] H&P: Results Labs Labs: Short CBC 11/10/24 Range/Units 03:40 WBC 13.1 H (4.5-10.0) K/mm3 Hgb 17.0 H (12.0-15.0) g/dL Hct 53.3 H (37.0-47.0) % Plt Count 251 (150-375) k/mm3 BMP 11/10/24 03:40 Sodium 139 Potassium 3.7 Chloride 101 Carbon Dioxide 31 H BUN 9 Creatinine 0.96 Glucose 126 H Calcium 9.1 Liver Function 05/01/25 Range/Units 03:40 Total Bilirubin 0.7 (0.2-1.3) mg/dL AST 23 (14-36) U/L ALT 20 (6-35) U/L Alkaline Phosphatase 90 (38-126) U/L Albumin 4.4 (3.5-5.1) g/dL Assessment and Plan Assessment and plan (1) Anxiety: Code(s): F41.9 - Anxiety disorder, unspecified Status: Acute (2) Coronary artery disease: Onset Date: 10/2023 Code(s): I25.10 - Atherosclerotic heart disease of [place] coronary artery without angina pectoris Status: Acute (3) Polycythemia: Code(s): D75.1 - Secondary polycythemia Status: Acute (4) Chronic obstructive pulmonary disease: Code(s): J44.9 - Chronic obstructive pulmonary disease, unspecified Status: Acute Plan COPD exacerbation History of anxiety and panic attack Chronic smoking history 1 pack per day Home 2 L oxygen baseline COPD exacerbation requiring BiPAP Currently on nasal cannula 2 L Repeat ABG tomorrow in nasal cannula D-dimer negative Started on ceftriaxone and doxycycline Prednisone 40 mg p.o. q.d. Continue DuoNeb CT scan chest pending Respiratory pathogen panel pending Although 1 antitrypsin pending Nasal MRSA negative Flu, COVID, RSV negative Panic attack Started on buspirone 10 mg p.o. b.i.d. Follow-up with Psychiatry as outpatient CAD Cardiac Cath 12/18/2023: 1. Right coronary dominant circulation with no angiographically significant coronary disease, minimal plaquing is noted at the LAD ostium as described above 2. normal appearing left ventricular systolic function with no wall motion abnormalities, stress testing had suggested evidence of previous anterior infarction which appears not to be the case Continue aspirin and atorvastatin Restart metoprolol succinate 25 mg p.o. q.d. Hospitalist MIPS Advance Care Plan I have confirmed that the patient's Advanced Care Plan is present, code status is documented, or surrogate decision maker is listed in patient medical record.: Yes Medication Reconciliation I have utilized all available resources to obtain, update and review the patients current medications (includes all prescriptions, OTC, herbals, cannabis, and nutritional supplements).: Yes
[2024-11-10 09:54] LABS: NT Pro B Type Natriuretic Pept 184 pg/mL (19.9-100)
[2024-11-10 09:56] LABS: Procalcitonin 0.1 ng/mL
[2024-11-10 10:36] LABS: D Dimer < 0.27 ug/mL (<0.48)
--- NOTE | 2024-11-10 11:09 | PM.CNPUL ---
Assessment and Plan Assessment and plan (1) Acute exacerbation of chronic obstructive pulmonary disease: Code(s): J44.1 - Chronic obstructive pulmonary disease with (acute) exacerbation Status: Acute Assessment and Plan: patient carries a diagnosis of COPD. I do not have any PFTs. patient with a 48 year tobacco use and currently smoking half a pack per day. She presents now in respiratory distress with 2 days history of cough, change in phlegm, wheezing and worsening dyspnea on exertion for 2 weeks. She was treated for COPD exacerbation with BiPAP, steroids, bronchodilators and antibiotics. 11/10/2024 patient is currently on BiPAP in no respiratory distress with an FiO2 of 30% and saturations 95%. Her daughter this in the room. Currently she has had 2 weeks of dyspnea on exertion, cough, increased phlegm over the last 2 days with no change in the color and wheezing. D-dimer less than 0.27. BNP 184. Patient said the BiPAP pressures were very uncomfortable and she could not sleep last night. I changed her to noninvasive ventilation mode with AVAPS and adjusted the settings to comfort resulting in a rate of 14, tidal volume 500, EPAP 5, minimal inspiratory pressure 6, maximal inspiratory pressure 25, inspiratory time 1.2, rise of 5 and 28% FiO2 and she said this was more comfortable. She felt better and I was able to take her off the noninvasive ventilator and place her on 2 L nasal cannula with saturations 93%. Plan: I will change the patient to prednisone 40 mg p.o. q.day. I will continue DuoNeb q.6 hours. Patient has been started on ceftriaxone and doxycycline. No evidence of fluid overload. D-dimer is negative. I will order CT scan of the chest without contrast to assess for evidence of COPD, pneumonia and lung nodules. I will order a respiratory pathogen panel. I will order alpha 1 anti trypsin on 11/11/2024. Goal saturation 90-94%. Wean oxygen accordingly. Patient has untreated anxiety for many years. She had discussed this with her PCP who recommended she see a psychiatrist or counselor and this was never done. Discussed with hospitalist and will start BuSpar. Continue noninvasive ventilation with the AVAPS mode on a p.r.n. basis. Discussed with Dr. Yepez, will follow with you History of Present Illness History of Present Illness Consult date: 11/10/24 Chief complaint: Hypoxic respiratory failure requiring BIPAP, COPD, Narrative: 11/10/2024: This is a new pulmonary consult for COPD exacerbation on BiPAP. 64-year-old with a history of asthma and COPD, tobacco use, anxiety. Patient tells me she smoked 1 pack for day from age 16 to recently and currently is smoking half a pack. 48 pack years. She is exposed to no secondhand smoke. She has no occupational exposures. Collectively they tell me on a good day she can walk half a block. One year ago she could walk 1 block. She was prescribed home oxygen approximately 1 year ago but only uses it sporadically at night at 2 L NC. Maintained on Advair 115-21 at 2 puffs b.i.d. and Incruse Ellipta 62.5 for many years. 11/10/24: Patient presented to the emergency department in severe respiratory distress, with heart rate 140-150, tachypneic in the 30s and hypoxemic with sats 89 on her 2 L. She was tripoding and placed on BiPAP. she had diffuse wheezing. Blood pressure 119/99, heart rate 146, temperature 36.6?, white blood cell count 13.1 with eosinophils 2.6%=340. VBG on BiPAP 12/650% was 7.38/46/57. COVID, influenza, RSV RT PCR assay negative. She was treated for COPD exacerbation with nebulizers, steroids and antibiotics. 11/10/2024 patient is currently on BiPAP in no respiratory distress with an FiO2 of 30% and saturations 95%. Her daughter this in the room. Currently she has had 2 weeks of dyspnea on exertion, cough, increased phlegm over the last 2 days with no change in the color and wheezing. D-dimer less than 0.27. BNP 184. Patient said the BiPAP pressures were very uncomfortable and she could not sleep last night. I changed her to noninvasive ventilation mode with AVAPS and adjusted the settings to comfort resulting in a rate of 14, tidal volume 500, EPAP 5, minimal inspiratory pressure 6, maximal inspiratory pressure 25, inspiratory time 1.2, rise of 5 and 28% FiO2 and she said this was more comfortable. She felt better and I was able to take her off the noninvasive ventilator and place her on 2 L nasal cannula with saturations 93%. ======== DATA: 10/28/2023: Echo Summary 1. Left ventricular systolic function is low normal, estimated at 50-55%. 2. The apex is akinetic. 3. The mid anterior wall, mid inferoseptal, mid anterolateral wall, and mid anteroseptal are hypokinetic. 4. Left ventricular chamber dimension is normal. 5. The left ventricular diastolic function is grade I diastolic dysfunction. 6. There is mildly increased left ventricular wall thickness. 7. Left atrial chamber dimension is mildly enlarged. 8. There is mild mitral valve regurgitation. 9. There is mild tricuspid valve regurgitation. 10. Mild pulmonary hypertension, estimated pulmonary arterial systolic pressure is 35 mmHg. Right Ventricle Right ventricular chamber dimension is normal. Right ventricular systolic function is normal. Right Atria Right atrial chamber dimension is normal. Atrial Septum Intact interatrial septum visualized by color flow imaging. Review of Systems Constitutional: Constitutional: Reports no additional constitutional complaints Eyes: Eyes: Reports no additional eye complaints ENT: Reports system reviewed and no additional complaints, except as documented Cardiovascular: Cardiovascular: Reports no additional cardiovascular complaints Respiratory: Respiratory: Reports no additional respiratory complaints Gastrointestinal: Gastrointestinal: Reports no additional gastrointestinal complaints Musculoskeletal: Musculoskeletal: Reports no additional musculoskeletal complaints Neurologic: Reports system reviewed and no additional complaints, except as documented Psychiatric: Psychiatric: Reports no additional psychiatric complaints Endocrine: Endocrine: Reports no additional endocrine complaints Hematologic/Lymphatic: Hematologic/Lymphatic: Reports no additional hematologic/lymphatic complaints Allergic/Immunologic: Allergic/Immunologic: Reports no additional allergic/immunologic complaints [facility] Past Medical History Medical History Tobacco abuse Chronic obstructive pulmonary disease Coronary artery disease (10/2023) Nuclear stress test showed a large, severe non reversible infarcts including multiple meyers of the apex and mid anterior and mid posterior segments consistent with infarct with no reversible ischemia. Surgical History Surgical History History of section Family History Family History Mother Cerebrovascular accident Sibling FH: CABG (coronary artery bypass surgery) Father Stented coronary artery Social History Social History Social History: Surrogate medical decision maker: Meghan Babcock, daughter. Code status: Full code. Smoking packs per day: 1 Smoking cigarettes per day: 20.0 Years smoked: 47 Smoking pack-years: 47.00 Smoking status: Light tobacco smoker Second hand tobacco smoke exposure: Yes Alcohol intake: former Drinks per week: 12 Substance use: never Substance use type: does not use Do You Feel Safe in your Home?: Yes Lack of Transportation: No Lack of Food: Never True Current Housing: I Have Housing Concerned About Future Housing: No Difficulty Paying Gas/Electric Bills: No Difficulty Paying for Meds: No Currently Unemployed: No Education: High School Diploma/GED Difficulty w/ Childcare or Family Care: No Living arrangements: with family Spiritual care concerns: No Meds Home Medications and Allergies Home Medications ?Medication ?Instructions ?Recorded ?Confirmed ?Type albuterol sulfate 90 mcg/actuation 2 puff inhalation TID PRN 10/26/23 11/10/24 History aerosol inhaler Shortness Of Breath Or Wheezing fluticasone propionate 115 2 puff inhalation BID 10/26/23 11/10/24 History mcg-salmeterol 21 mcg/actuation HFA inhaler (Advair HFA) umeclidinium 62.5 mcg/actuation 1 inh inhalation DAILY 10/26/23 11/10/24 History blister powder for inhalation (Incruse Ellipta) aspirin 81 mg tablet,delayed 81 mg PO QAM #60 tabs 10/28/23 11/10/24 Rx release nitroglycerin 0.4 mg sublingual 0.4 mg sublingual Q5MIN PRN Chest 10/28/23 11/10/24 Rx tablet (Nitrostat) Pain #10 tabs ipratropium 0.5 mg-albuterol 3 mg 3 ml inhalation Q6HRT #30 dose pk 11/18/23 11/10/24 Rx (2.5 mg base)/3 mL nebulization soln atorvastatin 40 mg tablet 20 mg PO DAILY 11/10/24 11/10/24 History Allergies Allergy/AdvReac Type Severity Reaction Status Date / Time codeine AdvReac Itching Verified 02/15/24 15:52 Vital Signs Vital Signs - 24 hr 11/10/24 03:29 11/10/24 03:30 11/10/24 03:33 Temperature 36.6 C Pulse Rate 146 H 156 H Respiratory Rate 31 H 22 H Blood Pressure 119/99 H Pulse Oximetry 90 97 90 Oxygen Delivery Room Air BiPAP Room Air Oxygen Flow Rate Fraction of Inspired Oxygen 11/10/24 03:33 11/10/24 03:33 11/10/24 03:36 Temperature Pulse Rate 148 H 153 H Respiratory Rate 24 H Blood Pressure 119/99 H Pulse Oximetry 97 99 Oxygen Delivery BiPAP Oxygen Flow Rate Fraction of Inspired Oxygen 11/10/24 05:36 11/10/24 06:14 11/10/24 06:40 Temperature 36.2 C L Pulse Rate 108 H 102 H 101 H Respiratory Rate 15 20 17 Blood Pressure 94/66 L 111/67 106/83 Pulse Oximetry 98 98 97 Oxygen Delivery Oxygen Flow Rate Fraction of Inspired Oxygen 11/10/24 08:00 11/10/24 08:00 11/10/24 08:00 Temperature 36.7 C Pulse Rate 93 92 Respiratory Rate 23 H Blood Pressure 116/72 Pulse Oximetry 98 Oxygen Delivery BiPAP Oxygen Flow Rate Fraction of Inspired Oxygen 50 11/10/24 08:57 11/10/24 09:35 11/10/24 10:00 Temperature Pulse Rate 89 108 H Respiratory Rate 20 Blood Pressure Pulse Oximetry 92 93 Oxygen Delivery BiPAP Nasal Cannula Oxygen Flow Rate 2 Fraction of Inspired Oxygen Exam Const: General: cooperative, healthy appearing and comfortable Orientation/consciousness: oriented to person, oriented to place and oriented to time Other: Off BiPAP in no respiratory distress HENMT: Head: normal to inspection Ears: hearing grossly normal bilaterally Eyes: General: appearance normal, both eyes and all related structures Neck: Neck: normal visual inspection Chest: Chest palpation & inspection: normal inspection of the chest Resp: Effort & Inspection: normal respiratory effort and able to speak in complete sentences Auscultation: no crackles, no rales, no rhonchi, wheezes and lung sounds not diminished Cardio: Jugular venous distension: no JVD GI: Inspection: normal to inspection GI Palp: No abdominal tenderness Skin: General skin exam: normal color Neuro: General: oriented to person, oriented to place and oriented to time Extrem: General: normal to inspection and no edema Psych: Appearance: grossly normal Results Laboratory Findings 11/10/24 03:40 11/10/24 03:40 ABG, PT/INR, D-dimer: PT/INR, D-dimer PT 12.6 Seconds (11.1-14.7) 11/10/24 03:40 INR 0.9 11/10/24 03:40 D-Dimer < 0.27 ug/mL (<0.48) 11/10/24 10:06 Abnormal lab findings: Abnormal Labs 11/10/24 03:40 WBC 13.1 H Hgb 17.0 H Hct 53.3 H MCV 100.9 H MCHC 31.9 L Lymph # (Auto) 4.90 H [place] # (Auto) 0.7 H Abs Immat Gran (auto) 0.04 H Absolute Neuts (auto) 7.0 H VBG pO2 56.9 H Carbon Dioxide 31 H Glucose 126 H NT-Pro-B Natriuret Pep 184 H Diagnostic Findings Additional studies: ITS Impressions Chest X-Ray 11/10/24 06:17 Impression: Clear lungs.
[2024-11-10] MEDS: predniSONE 20 MG TABLET 40 MG PO (11:31)
[2024-11-10 12:37] LABS: Procalcitonin 0.1 ng/mL
[2024-11-10 13:04] LABS: MRSA (PCR) NOT DETECTED (NOT DETECTE)
[2024-11-10] MEDS: METOPROLOL SUCCINATE EXT REL 25 MG TABCR PO (13:39)
[2024-11-10] MEDS: IPRATROPIUM 0.5 MG/ALBUTEROL SULFATE 2.5 MG AMPUL.NEB 3 ML INHALATION ×2 (14:32→20:37)
[2024-11-10] MEDS: ASPIRIN 81 MG ENTERIC TABLET PO (17:33)
[2024-11-10] MEDS: busPIRone HCL 10 MG TABLET PO (20:28)
[2024-11-11] VITALS (13 sets, daily range): BP systolic 112–119; BP diastolic 56–68; PULSE 66–101; RESP 18–20; TEMP 36.6–36.9; O2SAT 91–98
[2024-11-11] MEDS: IPRATROPIUM 0.5 MG/ALBUTEROL SULFATE 2.5 MG AMPUL.NEB 3 ML INHALATION ×2 (01:36→13:19)
[2024-11-11 04:40] LABS: Hematocrit 45.1 % (37.0-47.0); Hemoglobin 14.4 g/dL (12.0-15.0); Mean Corpuscular HGB Conc 31.9 g/dl (32-36); Mean Corpuscular Hemoglobin 32.7 pg (26-34); Mean Corpuscular Volume 102.3 fl (80-100); Platelet Count Result 204 k/mm3 (150-375); Red Blood Count 4.41 M/mm3 (4.2-5.4); Red Cell Distribution Width 13.6 % (11.5-14.5); White Blood Count 12.1 K/mm3 (4.5-10.0)
[2024-11-11 04:43] LABS: Alanine Aminotransferase 18 U/L (6-35); Albumin Level 3.8 g/dL (3.5-5.1); Alkaline Phosphatase 65 U/L (38-126); Anion Gap 4 mmol/L (4-12); Aspartate Amino Transferase 20 U/L (14-36); Bilirubin,Total 0.4 mg/dL (0.2-1.3); Blood Urea Nitrogen 16 mg/dL (7-17); Calcium 9.1 mg/dL (8.4-10.2); Carbon Dioxide 28 mmol/L (22-30); Chloride 105 mmol/L (98-107); Estimated CRCL calculation 62 ml/min; Estimated Glomerular Filt Rate > 60; Glucose 128 mg/dL (65-110); Potassium 4.3 mmol/L (3.4-5.0); Sodium 137 mmol/L (137-145)
[2024-11-11] MEDS: DOXYCYCLINE 100 MG/NS 100 ML 100 MG/100 ML BAG IVPB (05:45)
[2024-11-11] MEDS: busPIRone HCL 10 MG TABLET PO (07:59)
[2024-11-11] MEDS: ASPIRIN 81 MG ENTERIC TABLET PO (07:59)
[2024-11-11] MEDS: ATORVASTATIN 20 MG TABLET PO (07:59)
[2024-11-11] MEDS: METOPROLOL SUCCINATE EXT REL 25 MG TABCR PO (07:59)
[2024-11-11] MEDS: predniSONE 20 MG TABLET 40 MG PO (08:06)
--- NOTE | 2024-11-11 10:46 | PM.PNPUL ---
Progress Note: A&P Assessment and Plan (1) Acute exacerbation of chronic obstructive pulmonary disease: Code(s): J44.1 - Chronic obstructive pulmonary disease with (acute) exacerbation Status: Acute Assessment and Plan: patient carries a diagnosis of COPD. I do not have any PFTs. patient with a 48 year tobacco use and currently smoking half a pack per day. CT scan of the chest on 11/10/2024 shows moderate apical predominant centrilobular emphysema. She presents now in respiratory distress with 2 days history of cough, change in phlegm, wheezing and worsening dyspnea on exertion for 2 weeks. She was treated for COPD exacerbation with BiPAP, steroids, bronchodilators and antibiotics. 11/10/2024 patient is currently on BiPAP in no respiratory distress with an FiO2 of 30% and saturations 95%. Her daughter this in the room. Currently she has had 2 weeks of dyspnea on exertion, cough, increased phlegm over the last 2 days with no change in the color and wheezing. D-dimer less than 0.27. BNP 184. Patient said the BiPAP pressures were very uncomfortable and she could not sleep last night. I changed her to noninvasive ventilation mode with AVAPS and adjusted the settings to comfort resulting in a rate of 14, tidal volume 500, EPAP 5, minimal inspiratory pressure 6, maximal inspiratory pressure 25, inspiratory time 1.2, rise of 5 and 28% FiO2 and she said this was more comfortable. She felt better and I was able to take her off the noninvasive ventilator and place her on 2 L nasal cannula with saturations 93%. Plan: I will change the patient to prednisone 40 mg p.o. q.day. I will continue DuoNeb q.6 hours. Patient has been started on ceftriaxone and doxycycline. No evidence of fluid overload. D-dimer is negative. I will order CT scan of the chest without contrast to assess for evidence of COPD, pneumonia and lung nodules. I will order a respiratory pathogen panel. I will order alpha 1 anti trypsin on 11/11/2024. Goal saturation 90-94%. Wean oxygen accordingly. Patient has untreated anxiety for many years. She had discussed this with her PCP who recommended she see a psychiatrist or counselor and this was never done. Discussed with hospitalist and will start BuSpar 10 BID. Continue noninvasive ventilation with the AVAPS mode on a p.r.n. basis. Later in the day patient had a CT scan of the chest which demonstrated moderate apical predominant centrilobular emphysema, small consolidation anterior segment of the right upper lobe, T6 burst fracture. 11/11/24: Patient has remained on 2 L nasal cannula overnight. Overall she tells me she is breathing back to her normal. Her cough is at her normal with no hemoptysis and clear phlegm. She is walking around the room better than she has in the last month. She slept well. She is afebrile. White blood cell count is 12.1, creatinine 0.85. Her weight is 88 kg. Patient is currently smoking half a pack per day and I told her that cigarettes or actively killing her. She understands this and does wish to quit. tobacco cessation counseling was provided including motor techniques to mimic tobacco use, behavioral modification for cravings, positive reinforcement for not smoking and use of nicotine gum, lozenges or patches if needed. Plan: I will check an ABG on room air to assess for hypercarbic respiratory failure. if her PaCO2 is greater than 52 will discuss option of home noninvasive ventilation with the patient and if she is in agreement for this treatment she will need to stay in the hospital to arrange a home unit. If her PaCO2 is less than 52, the patient is stable for discharge from a pulmonary perspective on these pulmonary medications: Prednisone 40 mg p.o. q.day x3 days. Levaquin 750 mg p.o. q.day x5 days. Advair 115-21 at 2 puffs b.i.d.. Incruse Ellipta 62.5 at 1 puff q.day DuoNebs q.6 hours p.r.n. shortness of breath or wheezing Albuterol 2 puffs q.4 hours p.r.n. shortness of breath or wheezing Oxygen at rest and with activity per formal home O2 assessment. Oxygen at night per overnight oximetry which can be performed as an outpatient. Patient will follow-up with her PCP Dr. Valdez, will refer her to the Pulmonary [facility] if needed. Discussed with Dr. Valverde, will sign off, call with questions. Subjective Date/time seen: 11/11/24 10:46 Interval history: 11/10/2024: This is a new pulmonary consult for COPD exacerbation on BiPAP. 64-year-old with a history of asthma and COPD, tobacco use, anxiety. Patient tells me she smoked 1 pack for day from age 16 to recently and currently is smoking half a pack. 48 pack years. She is exposed to no secondhand smoke. She has no occupational exposures. Collectively they tell me on a good day she can walk half a block. One year ago she could walk 1 block. She was prescribed home oxygen approximately 1 year ago but only uses it sporadically at night at 2 L NC. Maintained on Advair 115-21 at 2 puffs b.i.d. and Incruse Ellipta 62.5 for many years. 11/10/24: Patient presented to the emergency department in severe respiratory distress, with heart rate 140-150, tachypneic in the 30s and hypoxemic with sats 89 on her 2 L. She was tripoding and placed on BiPAP. she had diffuse wheezing. Blood pressure 119/99, heart rate 146, temperature 36.6?, white blood cell count 13.1 with eosinophils 2.6%=340. VBG on BiPAP 12/650% was 7.38/46/57. COVID, influenza, RSV RT PCR assay negative. She was treated for COPD exacerbation with nebulizers, steroids and antibiotics. 11/10/2024 patient is currently on BiPAP in no respiratory distress with an FiO2 of 30% and saturations 95%. Her daughter this in the room. Currently she has had 2 weeks of dyspnea on exertion, cough, increased phlegm over the last 2 days with no change in the color and wheezing. D-dimer less than 0.27. BNP 184. Patient said the BiPAP pressures were very uncomfortable and she could not sleep last night. I changed her to noninvasive ventilation mode with AVAPS and adjusted the settings to comfort resulting in a rate of 14, tidal volume 500, EPAP 5, minimal inspiratory pressure 6, maximal inspiratory pressure 25, inspiratory time 1.2, rise of 5 and 28% FiO2 and she said this was more comfortable. She felt better and I was able to take her off the noninvasive ventilator and place her on 2 L nasal cannula with saturations 93%. Later in the day patient had a CT scan of the chest which demonstrated moderate apical predominant centrilobular emphysema, small consolidation anterior segment of the right upper lobe, T6 burst fracture. 11/11/24: Patient has remained on 2 L nasal cannula overnight. Overall she tells me she is breathing back to her normal. Her cough is at her normal with no hemoptysis and clear phlegm. She is walking around the room better than she has in the last month. She slept well. She is afebrile. White blood cell count is 12.1, creatinine 0.85. Her weight is 88 kg. ======== DATA: CT diagnostic chest wo con Ordering provider: Parish Ragsdale MD History: 64 years Female with . COPD . Comparison: None. Technique: CT chest without IV contrast. Radiation reduction technique utilized.The dose-length product was 365.56 mGy-cm. FINDINGS: VISUALIZED THORACIC INLET: Normal. Retropharyngeal carotid arteries. MEDIASTINUM: Aorta/coronary arteries: Mild atheromatous disease. Heart/other: The heart is not enlarged. Lymph nodes: No mediastinal or hilar adenopathy. LUNGS: Underlying emphysematous changes. No pulmonary nodules or masses. No infiltrates or effusions. No pneumothorax. Atelectasis versus focal pneumonia is seen in the right upper lobe. VISUALIZED UPPER ABDOMEN: Right kidney small cyst measuring 1.8 cm. Status post cholecystectomy. Otherwise, the visualized upper abdomen is normal. MUSCULOSKELETAL: Soft tissues: The superficial soft tissues are normal. Bones: Age appropriate degenerative changes of the spine. Burst fracture is seen in T6 which may be acute or chronic. MRI evaluation advised. IMPRESSION: 1. Focal area of atelectasis versus pneumonia in the right upper lobe anteriorly. Otherwise, No evidence of pneumonia or pneumothorax. 2. Underlying emphysematous changes. 3. Burst fracture of T6. MRI is advised. 10/28/2023: Echo Summary 1. Left ventricular systolic function is low normal, estimated at 50-55%. 2. The apex is akinetic. 3. The mid anterior wall, mid inferoseptal, mid anterolateral wall, and mid anteroseptal are hypokinetic. 4. Left ventricular chamber dimension is normal. 5. The left ventricular diastolic function is grade I diastolic dysfunction. 6. There is mildly increased left ventricular wall thickness. 7. Left atrial chamber dimension is mildly enlarged. 8. There is mild mitral valve regurgitation. 9. There is mild tricuspid valve regurgitation. 10. Mild pulmonary hypertension, estimated pulmonary arterial systolic pressure is 35 mmHg. Right Ventricle Right ventricular chamber dimension is normal. Right ventricular systolic function is normal. Right Atria Right atrial chamber dimension is normal. Atrial Septum Intact interatrial septum visualized by color flow imaging. Review of Systems Constitutional: Constitutional: Reports no additional constitutional complaints Eyes: Eyes: Reports no additional eye complaints ENT: Reports system reviewed and no additional complaints, except as documented Cardiovascular: Cardiovascular: Reports no additional cardiovascular complaints Respiratory: Respiratory: Reports no additional respiratory complaints Gastrointestinal: Gastrointestinal: Reports no additional gastrointestinal complaints Musculoskeletal: Musculoskeletal: Reports no additional musculoskeletal complaints Neurologic: Reports system reviewed and no additional complaints, except as documented Psychiatric: Psychiatric: Reports no additional psychiatric complaints Endocrine: Endocrine: Reports no additional endocrine complaints Hematologic/Lymphatic: Hematologic/Lymphatic: Reports no additional hematologic/lymphatic complaints Allergic/Immunologic: Allergic/Immunologic: Reports no additional allergic/immunologic complaints Exam Const: General: cooperative and comfortable Orientation/consciousness: oriented to person, oriented to place and oriented to time Other: Off BiPAP in no respiratory distress HENMT: Head: normal to inspection Ears: hearing grossly normal bilaterally Eyes: General: appearance normal, both eyes and all related structures Neck: Neck: normal visual inspection Chest: Chest palpation & inspection: normal inspection of the chest Resp: Effort & Inspection: normal respiratory effort and able to speak in complete sentences Auscultation: no crackles, no rales, no rhonchi, wheezes and lung sounds not diminished Other: It improved wheezes and only very faint bilaterally Cardio: Jugular venous distension: no JVD GI: Inspection: normal to inspection Skin: General skin exam: normal color Neuro: General: oriented to person, oriented to place and oriented to time Extrem: General: normal to inspection and no edema Psych: Appearance: grossly normal Objective Data Vital Signs Vital Signs: Vital Signs - 24 hr 11/10/24 12:00 11/10/24 12:00 11/10/24 12:00 Temperature 36.7 C Pulse Rate 108 H 124 H Respiratory Rate 22 H Blood Pressure 127/54 L Pulse Oximetry 95 93 Oxygen Delivery Nasal Cannula Oxygen Flow Rate 2 Fraction of Inspired Oxygen 11/10/24 13:39 11/10/24 13:41 11/10/24 14:00 Temperature Pulse Rate 120 H 105 H Respiratory Rate Blood Pressure 134/75 Pulse Oximetry Oxygen Delivery Oxygen Flow Rate Fraction of Inspired Oxygen 11/10/24 14:32 11/10/24 14:41 11/10/24 16:00 Temperature Pulse Rate 103 H 104 H Respiratory Rate 20 20 Blood Pressure Pulse Oximetry 91 Oxygen Delivery Nasal Cannula Oxygen Flow Rate 2 Fraction of Inspired Oxygen 11/10/24 16:00 11/10/24 18:00 11/10/24 20:00 Temperature 36.8 C 36.9 C Pulse Rate 90 88 87 Respiratory Rate 20 20 Blood Pressure 137/71 138/80 Pulse Oximetry 91 94 Oxygen Delivery Oxygen Flow Rate Fraction of Inspired Oxygen 11/10/24 20:00 11/10/24 20:00 11/10/24 20:37 Temperature Pulse Rate 87 87 80 Respiratory Rate 20 20 Blood Pressure Pulse Oximetry 94 Oxygen Delivery Nasal Cannula Oxygen Flow Rate 2 Fraction of Inspired Oxygen 50 11/10/24 20:44 11/10/24 20:47 11/10/24 21:57 Temperature Pulse Rate 82 78 Respiratory Rate 20 Blood Pressure Pulse Oximetry 94 Oxygen Delivery Nasal Cannula Oxygen Flow Rate 2 Fraction of Inspired Oxygen 11/11/24 00:00 11/11/24 00:00 11/11/24 00:00 Temperature 36.9 C Pulse Rate 77 67 67 Respiratory Rate 18 18 Blood Pressure 119/68 Pulse Oximetry 98 98 Oxygen Delivery Nasal Cannula Oxygen Flow Rate 2 Fraction of Inspired Oxygen 50 11/11/24 01:36 11/11/24 01:44 11/11/24 02:00 Temperature Pulse Rate 85 82 85 Respiratory Rate 20 20 Blood Pressure Pulse Oximetry Oxygen Delivery Oxygen Flow Rate Fraction of Inspired Oxygen 11/11/24 04:00 11/11/24 04:00 11/11/24 04:00 Temperature 36.9 C Pulse Rate 75 76 76 Respiratory Rate 18 18 Blood Pressure 112/60 Pulse Oximetry 97 97 Oxygen Delivery Nasal Cannula Oxygen Flow Rate 2 Fraction of Inspired Oxygen 50 11/11/24 06:00 11/11/24 07:52 11/11/24 07:59 Temperature 36.6 C Pulse Rate 66 75 89 Respiratory Rate 18 Blood Pressure 117/56 L Pulse Oximetry 93 Oxygen Delivery Oxygen Flow Rate Fraction of Inspired Oxygen 11/11/24 08:00 11/11/24 08:00 Temperature Pulse Rate 82 Respiratory Rate Blood Pressure Pulse Oximetry 98 Oxygen Delivery Nasal Cannula Oxygen Flow Rate 2 Fraction of Inspired Oxygen Intake/Output Intake/Output: Intake & Output 11/08/24 11/09/24 11/10/24 11/11/24 23:59 23:59 23:59 23:59 Intake Total 2360 790 Balance 2360 790 Meds/Results Medications: Active Medications Generic Name Dose Route Start Last Admin Trade Name Freq PRN Reason Stop Dose Admin Acetaminophen 650 mg 11/10/24 05:25 Acetaminophen 325 Mg Tablet PO Q4H PRN Mild Pain (1-3) or Fever Albuterol 2.5 mg 11/10/24 09:51 Albuterol Sulfate Neb 2.5 Mg/3 Ml Inh INHALATION Q4HRT PRN Shortness Of Breath Albuterol/Ipratropium 3 ml 11/10/24 14:00 11/11/24 01:36 Ipratropium 0.5 Mg/Albuterol Sulfate 2.5 Mg Ampul.Neb 3 Ml INHALATION 3 ml Q6HRT EMILY Administration Aspirin 81 mg 11/10/24 14:15 11/11/24 07:59 Aspirin 81 Mg Enteric Tablet PO 81 mg QAM EMILY Administration Atorvastatin Calcium 20 mg 11/11/24 09:00 11/11/24 07:59 Atorvastatin 20 Mg Tablet PO 20 mg DAILY EMILY Administration Buspirone HCl 10 mg 11/10/24 21:00 11/11/24 07:59 Buspirone Hcl 10 Mg Tablet PO 10 mg Q12HR EMILY Administration Ceftriaxone Sodium 1 gm in 50 mls @ 100 mls/hr 11/11/24 08:00 11/11/24 08:33 Rocephin 1 Gm/Ns 50 Ml IVPB Infused Q24H EMILY Infusion Doxycycline Hyclate 100 mg in 100 mls @ 100 mls/hr 11/10/24 18:00 11/11/24 06:45 Vibramycin 100 Mg/Ns 100 Ml IVPB Infused Q12H EMILY Infusion Metoprolol Succinate 25 mg 11/10/24 13:25 11/11/24 07:59 Metoprolol Succinate Ext Rel 25 Mg Tabcr PO 25 mg QAM EMILY Administration Ondansetron HCl 4 mg 11/10/24 05:25 Ondansetron Inj 4 Mg/2 Ml Vial IV PUSH Q4H PRN Nausea Prednisone 40 mg 11/10/24 09:55 11/11/24 08:06 Prednisone 20 Mg Tablet PO 40 mg DAILY@0800 EMILY Administration Radiology Results: ITS Impressions Chest X-Ray 11/10/24 06:17 Impression: Clear lungs. Chest CT 11/10/24 22:15 IMPRESSION: 1. Focal area of atelectasis versus pneumonia in the right upper lobe anteriorly. Otherwise, No evidence of pneumonia or pneumothorax. 2. Underlying emphysematous changes. 3. Burst fracture of T6. MRI is advised. Labs Labs: Laboratory Results - last 24 hr 11/10/24 11/10/24 11/11/24 11:25 11:56 04:26 WBC 12.1 H RBC 4.41 Hgb 14.4 Hct 45.1 MCV 102.3 H MCH 32.7 MCHC 31.9 L RDW 13.6 Plt Count 204 MPV 10.0 Sodium 137 Potassium 4.3 Chloride 105 Carbon Dioxide 28 Anion Gap 4 BUN 16 Creatinine 0.85 Estim Creat Clear Calc 62 Estimated GFR > 60 Glucose 128 H Calcium 9.1 Total Bilirubin 0.4 AST 20 ALT 18 Alkaline Phosphatase 65 Total Protein 6.0 L Albumin 3.8 Procalcitonin 0.1 Nasal MRSA (PCR) Not detected
--- NOTE | 2024-11-11 10:50 | PM.IMPN ---
Progress Note: A&P Assessment and Plan (1) Anxiety: Code(s): F41.9 - Anxiety disorder, unspecified Status: Acute (2) Coronary artery disease: Onset Date: 10/2023 Code(s): I25.10 - Atherosclerotic heart disease of [place] coronary artery without angina pectoris Status: Acute (3) Polycythemia: Code(s): D75.1 - Secondary polycythemia Status: Acute (4) Chronic obstructive pulmonary disease: Code(s): J44.9 - Chronic obstructive pulmonary disease, unspecified Status: Acute Plan COPD exacerbation History of anxiety and panic attack Chronic smoking history 1 pack per day Home 2 L oxygen baseline Acute respiratory distress requiring BiPAP Currently on nasal cannula 2 L No hypercapnia on ABG D-dimer negative Started on ceftriaxone and doxycycline Prednisone 40 mg p.o. q.d. Continue DuoNeb CT scan chest with focal area of atelectasis versus pneumonia in the right upper lobe anteriorly otherwise no evidence of pneumonia pneumothorax. Underlying emphysematous changes. Burst fracture of T6. Respiratory pathogen panel pending Alpha 1 antitrypsin pending Nasal MRSA negative Flu, COVID, RSV negative Panic attack Started on buspirone 10 mg p.o. b.i.d. Follow-up with Psychiatry as outpatient CAD Cardiac Cath 12/18/2023: 1. Right coronary dominant circulation with no angiographically significant coronary disease, minimal plaquing is noted at the LAD ostium as described above 2. normal appearing left ventricular systolic function with no wall motion abnormalities, stress testing had suggested evidence of previous anterior infarction which appears not to be the case Continue aspirin and atorvastatin Restart metoprolol succinate 25 mg p.o. q.d. Burst fracture T6 this is old as seen in previous x-rays as well. will need op followup with mri as op basis. Subjective Date/time seen: 11/11/24 10:50 Interval history: Presented with respiratory distress wears oxygen p.r.n. at home. EMS noted she was in severe respiratory distress with tachycardia and 140s to 150s tachypnea and 30s hypoxic at 89% on 2 L at home. Tripod positioning was initiated on BiPAP upon arrival to the ED. also received Ativan which helped with anxiety. Now off BiPAP. Treated for COPD exacerbation. CT chest with focal area of atelectasis versus pneumonia in the right upper lobe anteriorly underlying emphysematous changes burst fractures of T6 which is old. 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 Apical and mid anterior and mid inferior segments EF 65% That she feels better. No chest pain shortness of breath. Discussed with nursing. ABG reviewed discussed with Pulmonary Review of Systems Review of Systems: All systems reviewed & are unremarkable except as noted in HPI and below Exam Narrative: GENERAL: Alert and awake and answering questions not in acute distress HEAD: [Normocephalic, atraumatic.] EYES: [PERRLA and EOMI.] ENT: Nares clear, no rhinorrhea or epistaxis. Mucous membranes moist. NECK: Supple. CHEST: Coarse breath sound bilaterally no wheezes HEART: Regular rate and regular rhythm. No murmur heard. [Normal peripheral pulses.] ABDOMEN: [Soft, nondistended], [nontender], [No rigidity or guarding] EXTREMITIES: Normal range of motion. [No edema.] SKIN: Warm, dry, no rash. NEURO: [No focal deficits]. Alert and oriented [x3.] PSYCH: [Normal mood and affect.] Objective Data Vital Signs Vital Signs: Vital Signs - 24 hr 11/10/24 12:00 11/10/24 12:00 11/10/24 12:00 Temperature 98.1 F Pulse Rate 108 H 124 H Respiratory Rate 22 H Blood Pressure 127/54 L Pulse Oximetry 95 93 Oxygen Delivery Nasal Cannula Oxygen Flow Rate 2 Fraction of Inspired Oxygen 11/10/24 13:39 11/10/24 13:41 11/10/24 14:00 Temperature Pulse Rate 120 H 105 H Respiratory Rate Blood Pressure 134/75 Pulse Oximetry Oxygen Delivery Oxygen Flow Rate Fraction of Inspired Oxygen 11/10/24 14:32 11/10/24 14:41 11/10/24 16:00 Temperature Pulse Rate 103 H 104 H Respiratory Rate 20 20 Blood Pressure Pulse Oximetry 91 Oxygen Delivery Nasal Cannula Oxygen Flow Rate 2 Fraction of Inspired Oxygen 11/10/24 16:00 11/10/24 18:00 11/10/24 20:00 Temperature 98.3 F 98.4 F Pulse Rate 90 88 87 Respiratory Rate 20 20 Blood Pressure 137/71 138/80 Pulse Oximetry 91 94 Oxygen Delivery Oxygen Flow Rate Fraction of Inspired Oxygen 11/10/24 20:00 11/10/24 20:00 11/10/24 20:37 Temperature Pulse Rate 87 87 80 Respiratory Rate 20 20 Blood Pressure Pulse Oximetry 94 Oxygen Delivery Nasal Cannula Oxygen Flow Rate 2 Fraction of Inspired Oxygen 50 11/10/24 20:44 11/10/24 20:47 11/10/24 21:57 Temperature Pulse Rate 82 78 Respiratory Rate 20 Blood Pressure Pulse Oximetry 94 Oxygen Delivery Nasal Cannula Oxygen Flow Rate 2 Fraction of Inspired Oxygen 11/11/24 00:00 11/11/24 00:00 11/11/24 00:00 Temperature 98.4 F Pulse Rate 77 67 67 Respiratory Rate 18 18 Blood Pressure 119/68 Pulse Oximetry 98 98 Oxygen Delivery Nasal Cannula Oxygen Flow Rate 2 Fraction of Inspired Oxygen 50 11/11/24 01:36 11/11/24 01:44 11/11/24 02:00 Temperature Pulse Rate 85 82 85 Respiratory Rate 20 20 Blood Pressure Pulse Oximetry Oxygen Delivery Oxygen Flow Rate Fraction of Inspired Oxygen 11/11/24 04:00 11/11/24 04:00 11/11/24 04:00 Temperature 98.4 F Pulse Rate 75 76 76 Respiratory Rate 18 18 Blood Pressure 112/60 Pulse Oximetry 97 97 Oxygen Delivery Nasal Cannula Oxygen Flow Rate 2 Fraction of Inspired Oxygen 50 11/11/24 06:00 11/11/24 07:52 11/11/24 07:59 Temperature 97.8 F Pulse Rate 66 75 89 Respiratory Rate 18 Blood Pressure 117/56 L Pulse Oximetry 93 Oxygen Delivery Oxygen Flow Rate Fraction of Inspired Oxygen 11/11/24 08:00 11/11/24 08:00 Temperature Pulse Rate 82 Respiratory Rate Blood Pressure Pulse Oximetry 98 Oxygen Delivery Nasal Cannula Oxygen Flow Rate 2 Fraction of Inspired Oxygen Intake/Output Intake/Output: Intake & Output 11/08/24 11/09/24 11/10/24 11/11/24 23:59 23:59 23:59 23:59 Intake Total 2360 790 Balance 2360 790 Meds/Results Medications: Active Medications Generic Name Dose Route Start Last Admin Trade Name Freq PRN Reason Stop Dose Admin Acetaminophen 650 mg 11/10/24 05:25 Acetaminophen 325 Mg Tablet PO Q4H PRN Mild Pain (1-3) or Fever Albuterol 2.5 mg 11/10/24 09:51 Albuterol Sulfate Neb 2.5 Mg/3 Ml Inh INHALATION Q4HRT PRN Shortness Of Breath Albuterol/Ipratropium 3 ml 11/10/24 14:00 11/11/24 01:36 Ipratropium 0.5 Mg/Albuterol Sulfate 2.5 Mg Ampul.Neb 3 Ml INHALATION 3 ml Q6HRT EMILY Administration Aspirin 81 mg 11/10/24 14:15 11/11/24 07:59 Aspirin 81 Mg Enteric Tablet PO 81 mg QAM EMILY Administration Atorvastatin Calcium 20 mg 11/11/24 09:00 11/11/24 07:59 Atorvastatin 20 Mg Tablet PO 20 mg DAILY EMILY Administration Buspirone HCl 10 mg 11/10/24 21:00 11/11/24 07:59 Buspirone Hcl 10 Mg Tablet PO 10 mg Q12HR EMILY Administration Ceftriaxone Sodium 1 gm in 50 mls @ 100 mls/hr 11/11/24 08:00 11/11/24 08:33 Rocephin 1 Gm/Ns 50 Ml IVPB Infused Q24H EMILY Infusion Doxycycline Hyclate 100 mg in 100 mls @ 100 mls/hr 11/10/24 18:00 11/11/24 06:45 Vibramycin 100 Mg/Ns 100 Ml IVPB Infused Q12H EMILY Infusion Metoprolol Succinate 25 mg 11/10/24 13:25 11/11/24 07:59 Metoprolol Succinate Ext Rel 25 Mg Tabcr PO 25 mg QAM EMILY Administration Ondansetron HCl 4 mg 11/10/24 05:25 Ondansetron Inj 4 Mg/2 Ml Vial IV PUSH Q4H PRN Nausea Prednisone 40 mg 11/10/24 09:55 11/11/24 08:06 Prednisone 20 Mg Tablet PO 40 mg DAILY@0800 EMILY Administration Radiology Results: ITS Impressions Chest X-Ray 11/10/24 06:17 Impression: Clear lungs. Chest CT 11/10/24 22:15 IMPRESSION: 1. Focal area of atelectasis versus pneumonia in the right upper lobe anteriorly. Otherwise, No evidence of pneumonia or pneumothorax. 2. Underlying emphysematous changes. 3. Burst fracture of T6. MRI is advised. Labs Labs: Laboratory Results - last 24 hr 11/10/24 11/10/24 11/11/24 11:25 11:56 04:26 WBC 12.1 H RBC 4.41 Hgb 14.4 Hct 45.1 MCV 102.3 H MCH 32.7 MCHC 31.9 L RDW 13.6 Plt Count 204 MPV 10.0 Sodium 137 Potassium 4.3 Chloride 105 Carbon Dioxide 28 Anion Gap 4 BUN 16 Creatinine 0.85 Estim Creat Clear Calc 62 Estimated GFR > 60 Glucose 128 H Calcium 9.1 Total Bilirubin 0.4 AST 20 ALT 18 Alkaline Phosphatase 65 Total Protein 6.0 L Albumin 3.8 Procalcitonin 0.1 Nasal MRSA (PCR) Not detected
[2024-11-11 11:03] LABS: Alveolar/Arterial O2 Gradient 46.1 mmHg; Base Excess ABG 1.5 mEq/l (+/-2.0); Fractional Inspired Oxygen 21 %; HCO3 ABG 25.5 mEq/l (22.0-26.0); Oxygen Content ABG 20.2 %vol (16.0-22.0); Oxyhemoglobin 90.1 % THb (90.0-100.0); PCO2 ABG 38.4 mmHg (35.0-45.0); PO2 ABG 57.6 mmHg (80.0-100.0); PO2 FiO2 Ratio Arterial Blood 2.74 %
[2024-11-11 11:05] LABS: Device ROOM AIR; Modified Allen's Test Pass; Site Drawn LEFT RADIAL
--- NOTE | 2024-11-11 11:39 | P.DS_ITS ---
DS: Admitting Diagnosis Discharge Date 11/11/2024 Admitting Diagnosis Shortness of breath DS: Discharge Diagnosis Discharge Diagnosis (1) Anxiety: Code(s): F41.9 - Anxiety disorder, unspecified Status: Acute (2) Coronary artery disease: Onset Date: 10/2023 Code(s): I25.10 - Atherosclerotic heart disease of [place] coronary artery without angina pectoris Status: Acute (3) Polycythemia: Code(s): D75.1 - Secondary polycythemia Status: Acute (4) Chronic obstructive pulmonary disease: Code(s): J44.9 - Chronic obstructive pulmonary disease, unspecified Status: Acute DS: Summary Hospital Course Hospital Course: COPD exacerbation History of anxiety and panic attack Chronic smoking history 1 pack per day Home 2 L p.r.n. oxygen at baseline Acute respiratory distress requiring BiPAP BiPAP tapered off during hospital stay with treatment of COPD exacerbation No hypercapnia on ABG D-dimer negative Started on ceftriaxone and doxycycline and will be switched to oral Levaquin Prednisone 40 mg p.o. q.d. for total [address] scan chest with focal area of atelectasis versus pneumonia in the right upper lobe anteriorly otherwise no evidence of pneumonia pneumothorax. Underlying emphysematous changes. Burst fracture of T6. Home O2 evaluation not formally done however nursing staff noted her oxygen stayed adequate on ambulation. She does have oxygen at home to use Respiratory pathogen panel pending at discharge Alpha 1 antitrypsin pending Nasal MRSA negative Flu, COVID, RSV negative Panic attack Started on buspirone 10 mg p.o. b.i.d. Follow-up with Psychiatry as outpatient CAD Cardiac Cath 12/18/2023: 1. Right coronary dominant circulation with no angiographically significant coronary disease, minimal plaquing is noted at the LAD ostium as described above 2. normal appearing left ventricular systolic function with no wall motion abnormalities, stress testing had suggested evidence of previous anterior infarction which appears not to be the case Continue aspirin and atorvastatin Restart metoprolol succinate 25 mg p.o. q.d. # Burst fracture T6 this is old as seen in previous x-rays as well. will need op followup with mri as op basis. Time Spent with Patient Time attestation: Total time spent providing and/or coordinating discharge services: 35 minutes Exam Narrative: GENERAL: Alert and awake and answering questions not in acute distress HEAD: [Normocephalic, atraumatic.] EYES: [PERRLA and EOMI.] ENT: Nares clear, no rhinorrhea or epistaxis. Mucous membranes moist. NECK: Supple. CHEST: Coarse breath sound bilaterally no wheezes HEART: Regular rate and regular rhythm. No murmur heard. [Normal peripheral pulses.] ABDOMEN: [Soft, nondistended], [nontender], [No rigidity or guarding] EXTREMITIES: Normal range of motion. [No edema.] SKIN: Warm, dry, no rash. NEURO: [No focal deficits]. Alert and oriented [x3.] PSYCH: [Normal mood and affect.] DS: Data Data Completed and Pending Labs on day of discharge: Labs from last 24 hours 11/11/24 11/11/24 11/10/24 10:54 04:26 11:56 WBC 12.1 H RBC 4.41 Hgb 14.4 Hct 45.1 MCV 102.3 H MCH 32.7 MCHC 31.9 L RDW 13.6 Plt Count 204 MPV 10.0 Puncture Site Left radial ABG pH 7.440 ABG pCO2 38.4 ABG pO2 57.6 L ABG PO2/FiO2 Ratio 2.74 ABG HCO3 25.5 ABG O2 Saturation 91.0 L ABG O2 Content 20.2 ABG Base Excess 1.5 A-a Gradient 46.1 Oxyhemoglobin 90.1 Total Hemoglobin 16.0 O2 Delivery Device Room air O2 Liters/Min Not Reportable FiO2 21 Sodium 137 Potassium 4.3 Chloride 105 Carbon Dioxide 28 Anion Gap 4 BUN 16 Creatinine 0.85 Estim Creat Clear Calc 62 Estimated GFR > 60 Glucose 128 H Calcium 9.1 Total Bilirubin 0.4 AST 20 ALT 18 Alkaline Phosphatase 65 Total Protein 6.0 L Albumin 3.8 [id number] Pending Alpha-1-AT Phenotype Pending Procalcitonin 0.1 Nasal MRSA (PCR) 11/10/24 11:25 WBC RBC Hgb Hct MCV MCH MCHC RDW Plt Count MPV Puncture Site ABG pH ABG pCO2 ABG pO2 ABG PO2/FiO2 Ratio ABG HCO3 ABG O2 Saturation ABG O2 Content ABG Base Excess A-a Gradient Oxyhemoglobin Total Hemoglobin O2 Delivery Device O2 Liters/Min FiO2 Sodium Potassium Chloride Carbon Dioxide Anion Gap BUN Creatinine Estim Creat Clear Calc Estimated GFR Glucose Calcium Total Bilirubin AST ALT Alkaline Phosphatase Total Protein Albumin [id number]-[id number] Alpha-1-AT Phenotype Procalcitonin Nasal MRSA (PCR) Not detected Imaging Radiologist's impression: ITS Impressions Chest X-Ray 11/10/24 06:17 Impression: Clear lungs. Chest CT 11/10/24 22:15 IMPRESSION: 1. Focal area of atelectasis versus pneumonia in the right upper lobe anteriorly. Otherwise, No evidence of pneumonia or pneumothorax. 2. Underlying emphysematous changes. 3. Burst fracture of T6. MRI is advised. Discharge Plan Discharge Attending physician on discharge: Osman Valverde Consulting providers: [facility] Discharging Clinician: Osman Valverde Anticipated Discharge Date/Time: 11/11/24 11:41 Patient Disposition: Home Activity: as tolerated Diet: regular Patient Instructions: Antibiotic Form Patient Language: Tunisian Stand Alone Forms: General Discharge Information Follow-up/Referrals: José Migeul,MD [facility] [Primary Care Provider] - 1 Week Discharge Medications: New prednisone 20 mg Tablet 40 mg PO DAILY@0800 Qty: 6 0RF buspirone 10 mg Tablet 10 mg PO Q12HR Qty: 60 0RF metoprolol succinate [Toprol XL] 25 mg Tablet Extended Release 24 Hr 25 mg PO QAM Qty: 30 0RF levofloxacin 750 mg tablet 750 mg PO DAILY Qty: 5 0RF Continued albuterol sulfate 90 mcg/actuation HFA aerosol inhaler 2 puff INHALATION TID PRN (Reason: Shortness Of Breath Or Wheezing) fluticasone propion-salmeterol [Advair HFA] 115-21 mcg/actuation HFA aerosol inhaler 2 puff INHALATION BID Incruse Ellipta 62.5 mcg/actuation blister with device 1 inh INHALATION DAILY aspirin 81 mg Tablet,Delayed Release (Dr/Ec) 81 mg PO QAM Qty: 60 0RF nitroglycerin [Nitrostat] 0.4 mg Tablet, Sublingual 0.4 mg sublingual Q5MIN PRN (Reason: Chest Pain) Qty: 10 0RF Patient Comments: has not had to admin ipratropium-albuterol 0.5 mg-3 mg(2.5 mg base)/3 mL Solution For Nebulization 3 ml inhalation Q6HRT Qty: 30 0RF atorvastatin 40 mg Tablet 20 mg PO DAILY Patient Comments: patient hasn't taken since october 11, 2024 Date of admission: 11/10/24 05:26 Primary Care Provider: [facility] Admitting Provider: Amarilis Dinh Attending physician on admission: Amarilis Dinh Condition: Stable
--- NOTE | 2024-11-11 13:45 | PCRCNOTE ---
Pt D/C prior to home O2 evaluation. Pt previously stated she does have home O2 and wears 2 l at night and with exertion. Unsure of DME
[2024-11-12 06:49] LABS: Alpha-1-Antitrypsin, QN 154 mg/dL (83-199)
[2024-11-15 02:48] LABS: Adenovirus DNA Not Detected (Not Detected); Chlamydophila pneumoniae Not Detected (Not Detected); Coronavirus 229E Not Detected (Not Detected); Coronavirus HKU1 Not Detected (Not Detected); Coronavirus NL63 Not Detected (Not Detected); Coronavirus OC43 Not Detected (Not Detected); Human Metapneumovirus Not Detected (Not Detected); Human Parainfluenza Virus 1 Not Detected (Not Detected); Human Parainfluenza Virus 2 Not Detected (Not Detected); Human Parainfluenza Virus 3 Not Detected (Not Detected); Human Parainfluenza Virus 4 Not Detected (Not Detected); Human RSV B Not Detected (Not Detected); Influenza A Not Detected (Not Detected); Influenza B Not Detected (Not Detected); Mycoplasma pneumoniae Not Detected (Not Detected); Rhinovirus/Enterovirus Not Detected (Not Detected)
== END 2024-11-11 13:30 | disposition home or self-care (01) | DRG 192 ==
LOC: ANHED 05:30 → ANHIMU 06:17
PROVIDERS: General Practice; Internal Medicine Pulmonary Disease; Admitting Provider Hospitalist; Emergency Provider Student in an Organized Health Care Education/Training Program; PCP Internal Medicine; Visit Provider Internal Medicine
DX: J44.1 Chronic obstructive pulmonary disease with (acute) exacerbation (principal); D75.1 Secondary polycythemia; I25.10 Atherosclerotic heart disease of native coronary artery without angina pectoris; F41.9 Anxiety disorder, unspecified; F17.210 Nicotine dependence, cigarettes, uncomplicated; Z20.822 Contact with and (suspected) exposure to COVID-19; S22.051D Stable burst fracture of T5-T6 vertebra, subsequent encounter for fracture with routine healing; Z99.81 Dependence on supplemental oxygen; Z79.82 Long term (current) use of aspirin
CPT/HCPCS: 36415; 36600; 71045; 71250; 80053; 82103; 82104; 82803; 82805; 83735; 83880; 84145; 85018; 85025; 85027; 85380; 85610; 85730; 87633; 87637; 87641; 93005; 94002; 94640; 96365; 96367; 96368; 96375; 99285; A9270; J0696; J2060; J3105; J3475; J7030; J7512

== ENCOUNTER 2024-11-17 08:09 | Observation (INO) | payer OTHER, SELFPAY ==
[2024-11-17] VITALS (18 sets, daily range): BP systolic 97–130; BP diastolic 57–78; PULSE 84–122; RESP 16–30; TEMP 36.2–36.6; O2SAT 93–99; BMI 31.8
--- NOTE | ~2024-11-17 | XR_ITS ---
XR chest 1V portable Ordering provider: Crow Lunsford MD History: 64 years Female with . shortness of breath . Comparison: November 10, 2024 FINDINGS: MEDIASTINUM: The cardiac silhouette is not enlarged. LUNGS: No infiltrates, effusions or pneumothorax. Minimal fibrotic changes are seen in the lung bases . OTHER: No free air under the diaphragm. Degenerative changes of the spine. IMPRESSION: No acute cardiopulmonary pathology. Reviewed, dictated and finalized at location A.
--- NOTE | 2024-11-17 08:18 | ECG_ITS ---
Test Date: 2024-11-17 08:32:16 Measurements Intervals [place] Rate: 110 P: 64 SD: 140 QRS: 76 QRSD: 69 T: 38 QT: 287 QTc: 389 Interpretive Statements SINUS TACHYCARDIA Compared to ECG 11/17/2024 08:25:10 NO SIGNIFICANT CHANGES Electronically Signed On 11-17-2024 10:09:25 CDT by Moris Garrison M.D.
--- OUTSIDE RECORDS SUMMARY | 2024-11-17 08:24 | XMS_ITS | CONTINUITY OF CARE DOCUMENT ---
Author Name alvaro john Address Unknown Organization [facility] Address [id number] [place] [address] [address] [place] [address] Phone [phone] Care Team Providers Care Line Installer Name Role Phone MARGARET GABRIEL MD Unavailable [phone] MARGARET GABRIEL MD Unavailable INSURANCE PROVIDERS Payer name Policy type / Coverage type Swathi red republican [employer] [facility] Medicaid 1 [id number]
--- OUTSIDE RECORDS SUMMARY | 2024-11-17 08:24 | XMS_ITS | Clinical Summary ---
Author Organization [facility] Address [address] [place] [address] Care Team Providers Care Machine Shop Instructor Name Role Phone Ethan Cerrato Primary Care Provider + Source Comments [facility],non-owned Affiliates and Associated Physician Practices is amultiple site organization consisting of ambulatory clinics and hospital sitesin [place], [place], [place] and [place]. This disclosure is being madepursuant to the Care Everywhere program and may not contain all information available regarding this patient. Last updated 18.[facility] Allergies No known active allergies Medications * [...] on file Legal Sex Female 8:53 AM MACHINES TECHNICIAN Gender Identity Not on file Sexual Orientation Not on file Last Filed Vital Signs Vital Sign Reading Time Taken Comments Blood Pressure 122/80 07/25/2017 10:47 AM MACHINES TECHNICIAN Pulse 80 07/25/2017 10:47 AM MACHINES TECHNICIAN Temperature 36.8 C (98.2 F) 07/25/2017 10:47 AM MACHINES TECHNICIAN Respiratory Rate 20 07/25/2017 10:47 AM MACHINES TECHNICIAN Oxygen Saturation 94% 07/25/2017 10:47 AM MACHINES TECHNICIAN Inhaled Oxygen Concentration - - Weight 74.8 kg (165 lb) 07/25/2017 10:47 AM MACHINES TECHNICIAN Height 160 cm (5' 3 ) 07/25/2017 10:47 AM MACHINES TECHNICIAN Body Mass Index 29.23 07/25/2017 10:47 AM MACHINES TECHNICIAN Plan of Treatment Health Maintenance Due Date [...] patient's age to complete this topic Insurance [facility] Care Teams Machine Shop Instructor Relationship Specialty Start Date End Date Ethan Cerrato PA [address] [place] [address] PCP - General Physician People Greeter 07/25/17
--- OUTSIDE RECORDS SUMMARY | 2024-11-17 08:24 | XMS_ITS | Data Portability ---
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 [email or web address] Not available 01/07/2024 22:12:53 02/24/2024 02/24/2024 smoking [...] start it. Also get pulmonary function tests [email or web address] Not available 02/24/2024 21:43:50 04/29/2024 04/29/2024 she [...] COPD flare she would notify the office [email or web address] Not available 04/29/2024 14:50:20 2024 2024 PFTs. Refuses to get evaluation by gynecology for well-woman refuses any colon cancer screening refuses any immunizations. Blood work has been ordered follow up 3 months. Low-fat diet do not smoke stay active Not available 2024 16:21:48 Plan of Treatment Reminders Order Date Submit Date Provider Last Modified By Organization Details Last Modified Time Details Appointments ANY 2024 10:45A M Satinder Valdez MD Not available Not available Not available ANY 2024 01:00P Russell Valdez MD Not available Not available Not available Lab CBC w/ auto diff 2024 025 [facility], [address] [place] [address], [facility] [address], [place], [address], 10/01/2024 08:24:19 CMP, serum or plasma 2024 025 [facility], [address] [place] [address], [facility] [address], [place], [address], 10/01/2024 08:24:18 lipid panel, serum 2024 025 [facility], [address] [place] [address], [facility] [address], [place], [address], 10/01/2024 08:24:17 Referral None recorde d. Procedures None recorde d. Surgeries None recorde d. Imaging None recorde d. Medication Orders prednis one 20 mg tablet 2023 024 [id number], [address], [place], [place], [id number], 2024 12:19:47 atorvas tatin 40 mg tablet 2023 024 [email or web address] [facility] #[id number], [address], [place], [place], [id number], 04/29/2024 14:22:21 prednis one 20 mg tablet 2023 024 [facility] #[id number], [address], [place], [place], [id number], 2024 12:19:47 albuter ol sulfate HFA 90 mcg/act uation aerosol inhaler 2022 023 [id number], [address], [place], [place], [id number], 05/29/2023 15:36:23 Medrol (Hunter) 4 mg tablets in a dose pack 2022 024 [facility] #[id number], [address], [place], [place], [id number], 2024 12:19:34 Patient TargetsNo targets recorded. Patient Instructions Encounter Date Encounter Id Patient Instructions Last Modified By Organization Details Last Modified Time 05/29/2023 [id number] When You Want to Lose Weight: Care Instructions [facility] Not available 05/29/2023 15:36:05 Quitting Tobacco: Care Instructions [facility] Not available 05/29/2023 15:36:05 high cholesterol: care instructions [facility] Not available 05/29/2023 15:36:05 chronic obstructive pulmonary disease (COPD): care instructions [facility] Not available 05/29/2023 15:36:04 learning about copd and how to prevent lung infections [facility] Not available 05/29/2023 15:36:04 01/07/2024 [id number] Patient Health Questionnaire-9* [email or web address] Not available 01/08/2024 10:42:52 02/24/2024 [id number] Quitting Tobacco: Care Instructions [email or web address] Not available 02/24/2024 21:44:48 sending diane to [place] for ER note and [facility] for PFT [email or web address] Not available 02/24/2024 17:10:26 Reason for Referral None Reported. Results Created Date Observation Date Name Description Value Unit Range Abnormal Flag Note LastModifiedBy Organization Detail LastModifiedTime 10/01/19 25 10/01/2024 LIPID PANEL cholesterol, total 233 mg/dL 100-19 9 above high normal Not Available [facility] ([facility]) [address] [place], [address], 10/01/2024 08:24:17 10/01/19 25 10/01/2024 LIPID PANEL triglyceride s 200 mg/dL 0-149 above high normal Not Available [facility] ([facility]) [address] [place], [address], 10/01/2024 08:24:17 10/01/19 25 10/01/2024 LIPID PANEL HDL cholesterol 75 mg/dL >39 Not Available [facility] [address] [place], [address], 10/01/2024 08:24:17 10/01/19 25 10/01/2024 LIPID PANEL VLDL cholesterol mahogany 35 mg/dL 5-40 Not Available [facility] ([facility]) [address] [place], [address], 10/01/2024 08:24:17 10/01/19 25 10/01/2024 LIPID PANEL LDL chol calc ([facility]) 123 mg/dL 0-99 above high normal Not Available [facility] ([facility]) [address] [place], [address], 10/01/2024 08:24:17 10/01/19 25 10/01/2024 COMP. METAB OLIC PANEL (14) glucose 84 mg/dL 70-99 Not Available [facility] ([facility]) [address] [place], [address], 10/01/2024 08:24:18 10/01/19 25 10/01/2024 COMP. METAB OLIC PANEL (14) BUN 12 mg/dL 8-27 Not Available [facility] ([facility]) [address] [place], [address], 10/01/2024 08:24:18 10/01/19 25 10/01/2024 COMP. METAB OLIC PANEL (14) creatinine 1.03 mg/dL 0.57-1 .00 above high normal Not Available [facility] ([facility]) [address] [facility], [place], [address], 10/01/2024 08:24:18 10/01/19 25 10/01/2024 COMP. METAB OLIC PANEL (14) eGFR 61 mL/mi n/1.7 3 >59 Not Available [facility] ([facility]) [address] [facility] [place], [address], 10/01/2024 08:24:18 10/01/19 25 10/01/2024 COMP. METAB OLIC PANEL (14) BUN/creatini ne ratio 12 12-28 Not Available [facility] ([facility]) [address] [facility], [place], [address], 10/01/2024 08:24:18 10/01/19 25 10/01/2024 COMP. METAB OLIC PANEL (14) sodium 141 mmol/ L 134-14 4 Not Available [facility] ([facility]) [address] [facility], [place], [address], 10/01/2024 08:24:18 10/01/19 25 10/01/2024 COMP. METAB OLIC PANEL (14) potassium 4.7 mmol/ L 3.5-5. 2 Not Available [facility] ([facility]) [address] [facility], [place], [address], 10/01/2024 08:24:18 10/01/19 25 10/01/2024 COMP. METAB OLIC PANEL (14) chloride 101 mmol/ L 96-106 Not Available [facility] ([facility]) [address] [facility], [place], [address], 10/01/2024 08:24:18 10/01/19 25 10/01/2024 COMP. METAB OLIC PANEL (14) carbon dioxide, total 22 mmol/ L 20-29 Not Available [facility] ([facility]) [address] [facility], [place], [address], 10/01/2024 08:24:18 10/01/19 25 10/01/2024 COMP. METAB OLIC PANEL (14) calcium 9.6 mg/dL 8.7-10 .3 Not Available [facility] ([facility]) [address] [facility], [place], [address], 10/01/2024 08:24:18 10/01/19 25 10/01/2024 COMP. METAB OLIC PANEL (14) protein, total 6.4 g/dL 6.0-8. 5 Not Available [facility] ([facility]) [address] [place], [address], 10/01/2024 08:24:18 10/01/19 25 10/01/2024 COMP. METAB OLIC PANEL (14) albumin 4.3 g/dL 3.9-4. 9 Not Available [facility] ([facility]) [address] [place], [address], 10/01/2024 08:24:18 10/01/19 25 10/01/2024 COMP. METAB OLIC PANEL (14) globulin, total 2.1 g/dL 1.5-4. 5 Not Available [facility] ([facility]) [address] [place], [address], 10/01/2024 08:24:18 10/01/19 25 10/01/2024 COMP. METAB OLIC PANEL (14) bilirubin, total 0.4 mg/dL 0.0-1. 2 Not Available [facility] ([facility]) [address] [place], [address], 10/01/2024 08:24:18 10/01/19 25 10/01/2024 COMP. METAB OLIC PANEL (14) alkaline phosphatase 90 IU/L 44-121 Not Available [facility]) [address] [facility] [place], [address], 10/01/2024 08:24:18 10/01/19 25 10/01/2024 COMP. METAB OLIC PANEL (14) AST (SGOT) 17 IU/L 0-40 Not Available [facility] ([facility]) [address] [facility] [place], [address], 10/01/2024 08:24:18 10/01/19 25 10/01/2024 COMP. METAB OLIC PANEL (14) ALT (SGPT) 20 IU/L 0-32 Not Available [facility] ([facility]) [address] [facility], [place], [address], 10/01/2024 08:24:18 10/01/19 25 10/01/2024 CBC WITH DIFFE RENTI AL/PL ATELE T WBC 9.3 x10e3 /uL 3.4-10 .8 Not Available [facility] ([facility]) [address] [place], [address], 10/01/2024 08:24:19 10/01/19 25 10/01/2024 CBC WITH DIFFE RENTI AL/PL ATELE T RBC 5.33 x10e6 /uL 3.77-5 .28 above high normal Not Available [facility] ([facility]) [address] [facility], [place], [address], 10/01/2024 08:24:19 10/01/19 25 10/01/2024 CBC WITH DIFFE RENTI AL/PL ATELE T hemoglobin 17.6 g/dL 11.1-1 5.9 above high normal Not Available [facility] ([facility]) [address] [place], [address], 10/01/2024 08:24:19 10/01/19 25 10/01/2024 CBC WITH DIFFE RENTI AL/PL ATELE T hematocrit 53.6 % 34.0-4 6.6 above high normal Not Available [facility] ([facility]) [address] [place], [address], 10/01/2024 08:24:19 10/01/19 25 10/01/2024 CBC WITH DIFFE RENTI AL/PL ATELE T MCV 101 fL 79-97 above high normal Not Available [facility] ([facility]) [address] [place], [address], 10/01/2024 08:24:19 10/01/19 25 10/01/2024 CBC WITH DIFFE RENTI AL/PL ATELE T MCH 33.0 pg 26.6-3 3.0 Not Available [facility] ([facility]) [address] [place], [address], 10/01/2024 08:24:19 10/01/19 25 10/01/2024 CBC WITH DIFFE RENTI AL/PL ATELE T MCHC 32.8 g/dL 31.5-3 5.7 Not Available [facility] ([facility]) [address] [place], [address], 10/01/2024 08:24:19 10/01/19 25 10/01/2024 CBC WITH DIFFE RENTI AL/PL ATELE T RDW 13.8 % 11.7-1 5.4 Not Available [facility] ([facility]) [address] [place], [address], 10/01/2024 08:24:19 10/01/19 25 10/01/2024 CBC WITH DIFFE RENTI AL/PL ATELE T platelets 263 x10e3 /uL 150-45 0 Not Available [facility] ([facility]) [address] [place], [address], 10/01/2024 08:24:19 10/01/19 25 10/01/2024 CBC WITH DIFFE RENTI AL/PL ATELE T neutrophils 59 % notest ab. Not Available [facility] ([facility]) [address] [facility], [place], [address], 10/01/2024 08:24:19 10/01/19 25 10/01/2024 CBC WITH DIFFE RENTI AL/PL ATELE T lymphs 29 % notest ab. Not Available [facility] ([facility]) [address] [facility], [place], [address], 10/01/2024 08:24:19 10/01/19 25 10/01/2024 CBC WITH DIFFE RENTI AL/PL ATELE T monocytes 8 % notest ab. Not Available [facility] ([facility]) [address] [facility], [place], [address], 10/01/2024 08:24:19 10/01/19 25 10/01/2024 CBC WITH DIFFE RENTI AL/PL ATELE T eos 2 % notest ab. Not Available [facility] ([facility]) [address] [facility], [place], [address], 10/01/2024 08:24:19 10/01/19 25 10/01/2024 CBC WITH DIFFE RENTI AL/PL ATELE T basos 1 % notest ab. Not Available [facility] ([facility]) [address] [facility], [place], [address], 10/01/2024 08:24:19 10/01/19 25 10/01/2024 CBC WITH DIFFE RENTI AL/PL ATELE T neutrophils (absolute) 5.6 x10e3 /uL 1.4-7. 0 Not Available [facility] ([facility]) [address] [facility], [place], [address], 10/01/2024 08:24:19 10/01/19 25 10/01/2024 CBC WITH DIFFE RENTI AL/PL ATELE T lymphs (absolute) 2.7 x10e3 /uL 0.7-3. 1 Not Available [facility] ([facility]) [address] [facility], [place], [address], 10/01/2024 08:24:19 10/01/19 25 10/01/2024 CBC WITH DIFFE RENTI AL/PL ATELE T monocytes(ab solute) 0.7 x10e3 /uL 0.1-0. 9 Not Available [facility] ([facility]) [address] [facility], [place], [address], 10/01/2024 08:24:19 10/01/19 25 10/01/2024 CBC WITH DIFFE RENTI AL/PL ATELE T eos (absolute) 0.2 x10e3 /uL 0.0-0. 4 Not Available [facility] ([facility]) [address] [facility], [place], [address], 10/01/2024 08:24:19 10/01/19 25 10/01/2024 CBC WITH DIFFE RENTI AL/PL ATELE T baso (absolute) 0.1 x10e3 /uL 0.0-0. 2 Not Available [facility] ([facility]) [address] [facility], [place], [address], 10/01/2024 08:24:19 10/01/19 25 10/01/2024 CBC WITH DIFFE RENTI AL/PL ATELE T immature granulocytes 1 % notest ab. Not Available [facility] ([facility]) [address] [facility], [place], [address], 10/01/2024 08:24:19 10/01/19 25 10/01/2024 CBC WITH DIFFE RENTI AL/PL ATELE T immature grans (abs) 0.1 x10e3 /uL 0.0-0. 1 Not Available [facility] ([facility]) [address] [facility], [place], [address], 10/01/2024 08:24:19 02/25/20 24 03/09/2019 PFT, compl ete No observ ation record ed. [email or web address] [facility] [address], [place], [address], 02/27/2024 21:30:57 11/11/19 25 11/10/2024 XR, chest No observ ation record ed. [facility] [address] [facility] [address], [place], [address], 11/11/2024 09:12:50 11/11/19 25 11/10/2024 CT, chest , w/o contr ast No observ ation record ed. [facility] [address] [facility] [address], [place], [address], 11/14/2024 16:00:05 Result Notes None recorded. Problems Name Problem SNOMED Code Status Onset Date Resolution Date Notes Provider Name and Address Organization Details Recorded Time Low back pain 869748959 Active 2020 Not Available [facility] 3 17:06:31 At increased risk of nutritiona l deficit 302076766 Active 2021 Not Available [facility] 3 17:06:31 HIV screening Active 2021 Not Available [facility] 3 17:06:31 Chronic hypoxemic respirator y failure 813969374 Active 2023 Satinder Valdez MD Attn: Accounting ,[address] [place], [address] , [place] - [facility] 4 22:10:22 HIV screening declined 4880536660365 00 Active 2023 Satinder Valdez MD Attn: Accounting ,[address] [facility], [place], [address] , [place] [facility] 4 14:50:08 Mammogram declined 511042193 Active 2023 Satinder Valdez MD Attn: Accounting ,[address] [facility], [place], [address] , [place] [facility] 4 14:50:09 Colonoscop y declined 3330419436345 00 Active 2023 Satinder Valdez MD Attn: Accounting ,[address] [facility], [place], [address] , [place] [facility] 4 14:50:10 Influenza vaccinatio n declined 455922631 Active 2023 Satinder Valdez MD Attn: Accounting ,[address] [facility], [place], [address] , [place] [facility] 4 14:50:12 SARS-CoV-2 vaccinatio n declined 0541697798 Active 2023 Satinder Valdez MD Attn: Accounting ,[address] [facility], [place], [address] , [place] [facility] 4 14:50:13 Lung cancer screening declined 5707511295348 9105 Active 2023 Satinder Valdez MD Attn: Accounting ,[address] [facility], [place], [address] , [place] [facility] 4 14:50:14 Chronic obstructiv e pulmonary disease 87517109 Active Not Available [facility] 3 17:06:31 Gastroesop hageal reflux disease 663876662 Active Not Available [facility] 3 17:06:31 Tobacco user 802851529 Active Not Available [facility] 3 17:06:31 Obesity 069794948 Active Not Available [facility] 3 17:06:31 Hyperlipid emia 68547883 Active Not Available [facility] 3 17:06:31 Depressive disorder 96518545 Active 2016 Not Available [facility] 3 17:06:31 Bronchitis 78452244 Active 2016 Not Available [facility] 3 17:06:31 Notes:Some problems listed i n Document: #[id number] could not be added to this patient's chart. Please review this document and add these problems to the patient's chart manually as needed. Problem Notes None recorded. Procedures Surgical History Date Name Laterality Status Provider Name and Address Organization Details Recorded Time Caesarean Section completed Jacki Gipson [place] 11/16/2014 14:25:00 Cholecystectomy completed Jacki Gipson [place] [facility] 11/16/2014 14:25:00 Imaging Results Imaging Date Name Status LastModified by Organiz ation Details LastModified Time 03/09/2019 PFT, complete completed [email or web address] [facility] [address], [place], [address], 02/27/2024 21:30:57 11/10/2024 XR, chest completed [address], [address], 11/11/2024 09:12:50 11/10/2024 CT, chest, w/o contrast active [address], [address], 11/14/2024 16:00:05 Procedure Notes None recorded. Medical Equipment None Reported. Allergies Allergen ID Allergen Name Allergen Category Reaction Reaction Severity Criticality Documentation Date Start Date Code Code System Note Provider Name and Address Organization Details Recorded Time 730501 codeine medicatio n itching moderate Not available 2024 2670 RxNorm Wendy Reaves MA null, [place] - [facility] 12:17:26 Medications Name Sig Start Date Stop [...] tablet TAKE 2 TABLETS BY MOUTH DAILY AT 8 AM active Not Available Not Available No t [...] completed Not Available Not Available Not Available buspirone 10 mg tablet TAKE 1 TABLET BY MOUTH EVERY 12 HOURS active Not Available Not Available No t Available prednison e 50 mg tablet TAKE [...] Not Available Not Available No t Available levofloxa roberta 500 mg tablet 08/30 completed Not Available Not Available Not Available levofloxa roberta 750 mg tablet TAKE 1 TABLET BY MOUTH DAILY active Not Available Not Available No t Available methylpre dnisolone 4 mg tablets in [...] Updated DateTime 3 158.75 cm 32 kg/m2 06997.4 4 g 115 /min 96 % 96 % 128 mm[Hg] 80 mm[Hg] Pratibha Xiao [place] - [facility] 3 14:34:55 Date Recorded Body height Body mass index (BMI) Body weight Oxygen saturation Oxygen saturation in Arterial blood by Pulse oximetry Body temperature Heart rate Systolic blood pressure Diastolic blood pressure Provider Name and Address Organization Details Last Updated DateTime 4 158.75 cm 31.8 kg/m2 43547.4 1 g 97 % 97 % 97.8 [degF] 94 /min 140 mm[Hg] 90 mm[Hg] Shaina Wise [place] - [facility] 4 15:25:13 Date Recorded Body height Body mass index (BMI) Body weight Heart rate Oxygen saturation Oxygen saturation in Arterial blood by Pulse oximetry Systolic blood pressure Diastolic blood pressure Provider Name and Address Organization Details Last Updated DateTime 4 158.75 cm 31.1 kg/m2 51773.0 4 g 96 /min 98 % 98 % 120 mm[Hg] 66 mm[Hg] Judy Tafoya [place] - [facility] 4 16:17:17 Date Recorded Body height Body mass index (BMI) Body weight Oxygen saturation Oxygen saturation in Arterial blood by Pulse oximetry Heart rate Systolic blood pressure Diastolic blood pressure Provider Name and Address Organization Details Last Updated DateTime 4 158.75 cm 32.8 kg/m2 44434.8 9 g 98 % 98 % 90 /min 124 mm[Hg] 72 mm[Hg] Wendy Ritchie [place] [facility] 4 12:38:08 Date Recorded Body height Body mass index (BMI) Body weight Heart rate Oxygen saturation Oxygen saturation in Arterial blood by Pulse oximetry Systolic blood pressure Diastolic blood pressure Provider Name and Address Organization Details Last Updated DateTime 5 158.75 cm 34.3 kg/m2 22510.7 1 g 107 /min 93 % 93 % 138 mm[Hg] 76 mm[Hg] Wendy Reaves [place] [facility] 5 12:23:06 Social History Question Answer Notes LastModified by Organizat ion Details LastModified Time Tobacco Smoking Status Current Every Day Smoker Jacki Gipson MA [facility] 11/16/2014 14:25:00 Do You Have An Advance [...] Time Tdap 11/17/2023 completed Sylvia Baumann MA [place], [place] - [place] 2024 09:41:35 Past Encounters Encounter ID Performer Location Encounter Start Date Encounter Closed Date Diagnosis/Indication Diagnosis SNOMED-CT Code Diagnosis ICD10 Code Diagnosis Note [id number] MARILEE Howard (Adult Med) [address] [place] [address] [id number] 11/16/2014 14:11:25 11/16/2014 17:25:43 Chronic obstructive pulmonary disease 65118143 Gastroesop hageal reflux disease 964137675 Tobacco user 595744582 Obesity 682122280 Hyperlipidemia 07329064 [id number] MARILEE Howard (Adult Med) [address] [place] [address] [phone] 02/25/2016 14:30:31 02/25/2016 18:01:33 Chronic obstructive pulmonary disease 91657626 J44.9 Gastroesop hageal reflux disease 051825600 K21.9 Hyperlipidemia 58827912 E78.5 Obesity 092536464 E66.9 Tobacco user 593449448 Z 72.0 Normal grief reaction 27 8758617 F43.20 [id number] MD Terri Almonte (Adult Med) [address] [place] [address] [id number] 11/13/2016 14:27:12 11/13/2016 17:33:33 Chronic obstructive pulmonary disease 13159723 J44.9 Gastroesop hageal reflux disease 438486015 K21.9 Obesity 505343476 E66.9 Hyperlipidemia 13829339 E78.5 Depressive disorder 3548 9007 F32.89 grief reaction , lost mom last November) [id number] Rosi Begum MD [facility] (Adult Med) [address] [place] [address] [id number] 0 04/16/2017 15:05:45 04/20/2017 09:00:22 Chronic obstructive pulmonary disease 89625932 J44.9 Bronchitis 69585177 J40 Gastroesop hageal reflux disease 548011876 K21.9 Obesity 742646239 E66.9 Hyperlipidemia 17905799 E78.5 [id number] [facility] [address] [place] [address] [id number] 0 03/16/2018 16:39:42 03/17/2018 10:11:16 Bronchitis 23660656 J40 Chronic ob structive pulmonary disease 23062754 J44.9 Depressive disorder 3548 9007 F32.89 grief reaction , lost mom last November (2015) Tobacco user 934090221 Z 72.0 Gastroesop hageal reflux disease 544612432 K21.9 Obesity 970824283 E66.9 Hyperlipidemia 86412296 E78.5 [id number] Rosi Begum MD [facility] (Adult Med) [address] [place] [address] 71250-015 0 08/30/2018 16:13:03 08/31/2018 08:48:16 Bronchitis 96517642 J40 Tobacco user 173128894 Z 72.0 Chronic ob structive pulmonary disease 43853693 J44.9 Gastroesop hageal reflux disease 159867319 K21.9 Obesity 333340945 E66.9 Hyperlipidemia 49060665 E78.5 Depressive disorder 3548 9007 F32.89 grief reaction , lost mom last November (2015) [id number] Rosi Begum MD [facility] (Adult Med) [address] [place] [address] [phone] 0 09/26/2019 10:47:45 09/27/2019 08:42:42 Chronic obstructive pulmonary disease 51559057 J44.9 Gastroesop hageal reflux disease 108005490 K21.9 Hyperlipidemia 13469044 E78.5 Tobacco user 771185384 Z 72.0 [id number] MD Terri Almonte (Adult Med) [address] [place] [address] [id number] 0 07/10/2020 08:17:48 07/10/2020 16:38:50 Chronic obstructive pulmonary disease 91100291 J44.9 Gastroesop hageal reflux disease 448011034 K21.9 Hyperlipidemia 40592844 E78.5 Tobacco user 711010308 Z 72.0 Depressive disorder 5870 6473 F32.89 grief reaction , lost mom last November (2015) [id number] MD Terri Almonte (Adult Med) [address] [place] [address] [id number] 0 12/12/2020 10:01:54 12/12/2020 13:53:29 Chronic obstructive pulmonary disease 75997599 J44.9 Gastroesop hageal reflux disease 485204852 K21.9 Hyperlipidemia 83643290 E78.5 Tobacco user 173700496 Z 72.0 Low back pain 614425644 M54.5 [id number] MD Terri Almonte (Adult Med) [address] [place] [address] [id number] 0 07/22/2021 14:57:13 07/22/2021 15:30:47 Chronic obstructive pulmonary disease 07771639 J44.9 Gastroesop hageal reflux disease 864040543 K21.9 Hyperlipidemia 51334148 E78.5 Tobacco user 103262612 Z 72.0 Obesity 323450117 E66.9 Renewal of prescription 454831968 Z76.0 Low back pain 226191846 M54.50 [facility] risk of nutritional deficit 631496391 Z91.89 Depressive disorder 8559 2687 F32.89 grief reaction , lost mom last November (2015) [id number] MD Terri Almonte (Adult Med) [address] [place] [address] [id number] 0 04/01/2022 16:13:01 04/02/2022 10:16:26 Bronchitis 77061821 J40 Chronic ob structive pulmonary disease 36436853 J44.9 Depressive disorder 3548 9007 F32.89 grief reaction , lost mom last November (2015) Gastroesop hageal reflux disease 473978249 K21.9 Hyperlipidemia 30769478 E78.5 Low back pain 970568659 M54.50 Obesity 364339611 E66.9 Tobacco user 662477919 Z 72.0 At [facility] risk of nutritional deficit 742251289 Z91.89 HIV screening 627243797 Z11.4 [id number] MD Terri Almonte (Adult Med) [address] [place] [address] [id number] 0 08/07/2022 16:27:29 08/08/2022 15:12:17 Obesity [id number] E66.9 BMI is 33.5.he has been advised to watch her diet, exercise and keep the weight down. Chronic ob structive pulmonary disease 55618901 J44.9 Stable.Wan ts to refill med. Depressive disorder 3548 9007 F32.89 Under the care of her psychiatri st. Hyperlipidemia 15254674 E78.5 Low animal fat diet. Tobacco user 420907354 Z 72.0 Advised her to quit smoking. Colon [facility] [place] er screening declined [id number] 9109 Z53.20 She refused 08-07-2022 . Administra tion of diphtheria, pertussis, and tetanus vaccine 474616081 Z23 She refused 08-07-2022 . Influenza vaccination declined [id number] Z28.21 She refused 08-07-2022 . Mammogram declined 81935 5004 Z53.20 She refused 08-07-2022 , Screening for malignant neoplasm of cervix 782641805 Z12.4 She refused 08-07-2022 . [id number] MD Terri Almonte (Adult Med) [address] [place] [address] [phone] 02/25/2023 16:38:06 02/26/2023 14:14:06 Osteoarthritis 653139017 M19.90 She said that she has arthritis , it huts when weather changes, wants shot term steroid to easy the pain of back. . Discussed with patient, that steroid has potential side effects as well. such as pathologic fracture, hyperglyce jacinto, bleeding ulcer, poor healing of wound, adrenal insufficie ncy just new a few, She understood . Chronic ob structive pulmonary disease 05327429 J44.9 Stable.Andrés ts to refill med.Advair is not on 340-B, will order dulera instead. Smoker 26014893 F17.200 Advised her to quit smoking. She declined LDCT, she smokes half pack/day for more than 40 years. She is aware of cigarettes smoking can cause permanent emphysema. cancer of lung, throat, or mouth and other diseases. Obesity 659404704 E66.9 BMI is 33.5.he has been advised to watch her diet, exercise and keep the weight down. As 02-25-23, BMI is down to 32.5. HIV screen ing declined [id number] 26607 Z53.20 She declined 02-25-23. [id number] Rosi Begum MD [facility] (Adult Med) [address] [place] [address] [phone] 05/29/2023 14:29:10 06/02/2023 16:10:16 Chronic obstructive pulmonary disease 94312375 J44.9 Stable.Andrés ts to refill med.Advair is not on 340-B, will order dulera instead. She wants advair inhaler refill, but it is not on the list. and this provider contacted [facility] pharmacy no maintenanc e inhaler yael 340-B list any more. Smoker 20592421 F17.200 Advised her to quit smoking. She declined LDCT, she smokes half pack/day for more than 40 years. She is aware of cigarettes smoking can cause permanent emphysema. cancer of lung, throat, or mouth and other diseases. Hyperlipidemia 08643088 E78.5 Low animal fat diet. Obesity 737456589 E66.9 BMI is 33.5.he has been advised to watch her diet, exercise and keep the weight down. As 02-25-23, BMI is down to 32.5. As 05-29-23, BMI down to 32. Mammogram declined 97232 5004 Z53.20 She refused 08-07-2022 , She declined 05-29-23. Cervical c ancer Papanicolaou smear screening declined [id number] 67689 Z53.20 She declined 05-29-23. Colon canc er screening declined [id number] 9109 Z53.20 She refused 08-07-2022 . She declined 05-29-23. HIV screen ing declined 5501821725 49284 Z53.20 She declined 02-25-23. She declined 05-29-23. [id number] Satinder Valdez MD [facility] [address] [place] [address] 01/07/2024 14:34:10 01/07/2024 16:25:53 Depression screening 732313197 Z13.31 Chronic ob structive pulmonary disease 83397977 J44.9 Chronic hy poxemic respiratory failure 847331429 J96.11 Hyperlipidemia 76304523 E78.5 [id number] Satinder Valdez MD [facility] (Adult Med) [address] [place] [phone] 02/24/2024 15:59:57 02/24/2024 17:12:39 Smoker 56464802 F17.200 Chronic ob structive pulmonary disease 59190697 J44.9 [id number] Satinder Valdez MD [facility] (Adult Med) [address] [place] [address] [phone] 04/29/2024 12:05:20 04/29/2024 13:35:35 Hyperlipidemia 72597427 E78.5 Chronic ob structive pulmonary disease 54269374 J44.9 HIV screen ing declined 5281738278 13237 Z53.20 Mammogram declined 67452 5004 Z53.20 Colonoscopy declined 930 2379716 23716 Z53.20 Influenza vaccination declined 922997645 Z28.21 SARS-CoV-2 vaccination declined 5514151594 Z28.21 Lung cance r screening declined [id number] 1952319 Z53.20 [id number] Saitnder Valdez MD [facility] (Adult Med) [address] [place] [phone] 2024 11:44:40 2024 13:19:13 Body mass index 30+ - obesity 285745654 Z68.34 Hyperlipidemia 85679867 E78.5 Long-term drug therapy 663784614 Z79.899 Chronic ob structive pulmonary disease 81393074 J44.9 Gastroesop hageal reflux disease 962999789 K21.9 Health Concerns Section Related Observation LastModified by Organization Detai ls LastModified Time None Recorded Concern Status LastModified by Organization Details LastModified Time None Recorded Advance Directives Directive N: Payers Encounter Date Sequence Insurance Name Policy Number Policy Ford Covered Member ID Ford Member ID Guarantor Name 05/29/2023 1 [facility] ON OR AFTER 07/13/2020 - DUAL ELIGIBLE (MEDICARE REPLACEMENT/ADVANT AGE - HMO) [id number] Minnie Anguiano [id number] Minnie Anguiano 05/29/2023 2 [employer] [place] (MEDICARE REPLACEMENT/ADVANT AGE) Minnie Anguiano [id number] Minnie Anguiano 01/07/2024 1 [facility] ON OR AFTER 07/13/2020 - DUAL ELIGIBLE (MEDICARE REPLACEMENT/ADVANT AGE - HMO) [id number] Minnie Anguiano [id number] Minnie Anguiano 01/07/2024 2 [employer] [place] (MEDICARE REPLACEMENT/ADVANT AGE) Minnie Anguiano [id number] Minnie Anguiano 02/24/2024 1 [facility] ON OR AFTER 07/13/2020 - DUAL ELIGIBLE (MEDICARE REPLACEMENT/ADVANT AGE - HMO) [id number] Minnie Anguiano [id number] Minnie Anguiano 02/24/2024 2 [employer] [place] (MEDICARE REPLACEMENT/ADVANT AGE) Minnie Anguiano [id number] Minnie Anguiano 04/29/2024 1 [facility] ON OR AFTER 07/13/2020 - DUAL ELIGIBLE (MEDICARE REPLACEMENT/ADVANT AGE - HMO) [id number] Minnie Anguiano [id number] Minnie Anguiano 2024 1 [facility] [place] ON OR AFTER 07/13/2020 - DUAL ELIGIBLE (MEDICARE REPLACEMENT/ADVANT AGE - HMO) [id number] Minnie Anguiano [id number] Minnie Anguiano Notes Date Note Type Note Provider Name and Address Organization Details Recorded Time 05/29/2023 text/html Office visit, NKDA. copd, SMOKES HALF PK/DAY SHE SAID. has sinus congestion, wants short term steroid. and inhaler refill. No chest pain, no difficulty of breathing. no fever. Came with her daughter. Other solomon no complaints. ROS as noted in HPI. Rosi Begum MD Attn: Accounting, [address] [facility], [place], [address], [place] [facility] 05/29/2023 15:36:32 01/07/2024 text/html follow-up medica l problems interval history cardiac cath 20% lad aspirin atorvastatin metoprolol discontinued by Cardiology COPD 2 L oxygen continues to smoke breathing stable Satinder Valdez MD Attn: Accounting, [address] [facility], [place], [address], [place] [facility] 01/07/2024 22:13:28 02/24/2024 text/html ER for a COPD flare-up we do not have the records she is doing a little bit better she just quit smoking about 4 days ago she has not had any chest pain breathing has improved Satinder Valdez MD Attn: Accounting, [address] [facility], [place], [address], [place] [facility] 02/24/2024 21:44:51 04/29/2024 text/html COPD she has bee n doing pretty good with that stable. Dyslipidemia needs her atorvastatin refilled she can do better on a low-fat Satinder Valdez MD Attn: Accounting, [address] [facility], [place], [address], [place] [facility] 04/29/2024 14:50:42 2024 text/html COPD has been doing fairly well. Dyslipidemia she quit taking atorvastatin can not really tell me why rhinitis doing good on fluticasone. GERD denies any heartburn Satinder Valdez MD Attn: Accounting, [address] [facility], [place], [address], [place] [facility] 2024 16:22:07 OBGyn Episode No OBEpisode recorded.
--- NOTE | 2024-11-17 08:25 | ECG_ITS ---
Test Date: 2024-11-17 08:25:10 Measurements Intervals [place] Rate: 102 P: -4 WV: 147 QRS: 46 QRSD: 73 T: 61 QT: 293 QTc: 383 Interpretive Statements SINUS TACHYCARDIA NONDIAGNOSTIC ST ELEVATION Electronically Signed On 11-18-2024 21:58:27 CDT by Sidney Tsang M.D.
[2024-11-17] MEDS: IPRATROPIUM 0.5 MG/ALBUTEROL SULFATE 2.5 MG AMPUL.NEB 3 ML INHALATION ×3 (08:35→21:29)
[2024-11-17 08:49] LABS: Basophils Absolute Auto 0.1 K/mm3 (0.0-0.1); Basophils Percent Auto 0.4 % (0.2-1.2); Eosinophils Absolute Auto 0.3 K/mm3 (0-0.3); Eosinophils Percent Auto 2.5 % (0-4.4); Hemoglobin 15.9 g/dL (12.0-15.0); Immature Granulocyte Absolute 0.07 K/mm3 (0.00-0.031); Immature Granulocyte Percent A 0.6 % (0-0.5); Lymphocytes Absolute Auto 1.82 K/mm3 (0.9-3.2); Lymphocytes Percent Auto 14.5 % (18.3-44.2); Mean Corpuscular HGB Conc 31.2 g/dl (32-36); Mean Corpuscular Hemoglobin 32.1 pg (26-34); Mean Corpuscular Volume 102.8 fl (80-100); Mean Platelet Volume 10.2 fl (7.4-10.4); Monocytes Absolute Auto 0.8 K/mm3 (0.1-0.6); Monocytes Percent Auto 6.3 % (2.6-8.5); Neutrophils Absolute Auto 9.5 K/mm3 (1.3-6.7); Neutrophils Percent Auto 75.7 % (45.5-73.1); Platelet Count Result 220 k/mm3 (150-375); Red Blood Count 4.96 M/mm3 (4.2-5.4); White Blood Count 12.6 K/mm3 (4.5-10.0)
[2024-11-17 08:59] LABS: Alanine Aminotransferase 25 U/L (6-35); Albumin Level 4.1 g/dL (3.5-5.1); Alkaline Phosphatase 59 U/L (38-126); Anion Gap 5 mmol/L (4-12); Aspartate Amino Transferase 24 U/L (14-36); Bilirubin,Total 0.8 mg/dL (0.2-1.3); Blood Urea Nitrogen 16 mg/dL (7-17); Calcium 9.1 mg/dL (8.4-10.2); Carbon Dioxide 29 mmol/L (22-30); Chloride 104 mmol/L (98-107); Estimated Glomerular Filt Rate > 60; Glucose 111 mg/dL (65-110); Magnesium 2.1 mg/dL (1.6-2.3); Potassium 3.9 mmol/L (3.4-5.0); Sodium 138 mmol/L (137-145)
[2024-11-17 09:10] LABS: Lactic Acid Reflex 1.1 mmol/L (0.7-2.0)
[2024-11-17 09:10] LABS: NT Pro B Type Natriuretic Pept 314 pg/mL (19.9-100); Troponin I < 0.012 ng/mL (0.000-0.034)
[2024-11-17 09:19] LABS: INR 0.9; Partial Thromboplastin Time 24.5 Seconds (22.3-36.8); Prothrombin Time 12.4 Seconds (11.1-14.7)
[2024-11-17 09:22] LABS: Add Urine Microscopic? YES; Appearance Urine Clear (Clear); Bacteria Urine None Seen /hpf; Bilirubin Urine Negative (Negative); Blood Urine Negative (Negative); Color Urine Yellow (Yellow); Glucose Urine UA Negative (Negative); Ketones Urine Negative (Negative); Leukocyte Esterase Ur 3+ LEU/UL (Negative); Nitrate Urine Negative (Negative); Non Pathogenic Casts 0-2; Protein Urine Negative (Negative); RBC Urine 0-2 /hpf (0-2); Specific Grav Ur 1.016 (1.001-1.035); Squamous Epithelial Cell Urine Few /hpf (Few); Urobilinogen Urine 0.2 mg/dL (<2.0); WBC Urine 51-100 /hpf (0-3)
[2024-11-17 09:33] LABS: Procalcitonin 0.1 ng/mL
[2024-11-17 09:37] LABS: Influenza A QL RT-PCR Negative (Negative); Influenza B QL RT-PCR Negative (Negative); RSV RNA, RT-PCR Negative (Negative); SARS-CoV-2 RNA PCR Negative (Negative)
[2024-11-17] MEDS: methylPREDNISolone SOD SUCC 125 MG VIAL IV PUSH (09:51)
--- NOTE | 2024-11-17 09:52 | ED_ITS ---
HPI - General Adult General Chief complaint: Shortness of Breath/Dyspnea Stated complaint: SOB, recent PNA Time Seen by Provider: 11/17/24 08:11 History of Present Illness HPI narrative: Patient is 64-year-old female presents emergency department chief complaint of shortness of breath. Patient reports that she has history of COPD reports she was seen in the hospital recently treated for pneumonia finished her antibiotics and reports she is still having shortness of breath worse with ambulation and reports that whenever she ambulates her heart rate she is up in the 140s. The patient reports no chest pain reports no abdominal pain Related Data Home Medications ?Medication ?Instructions ?Recorded ?Confirmed ?Last Taken ?Type albuterol sulfate 90 mcg/actuation 2 puff inhalation TID PRN 10/26/23 11/17/24 11/09/24 History aerosol inhaler Shortness Of Breath Or Wheezing fluticasone propionate 115 2 puff inhalation BID 10/26/23 11/17/24 11/09/24 History mcg-salmeterol 21 mcg/actuation HFA inhaler (Advair HFA) umeclidinium 62.5 mcg/actuation 1 inh inhalation DAILY 10/26/23 11/17/24 11/17/24 History blister powder for inhalation (Incruse Ellipta) Allergies Allergy/AdvReac Type Severity Reaction Status Date / Time codeine AdvReac Itching Verified 02/15/24 15:52 Review of Systems 2 Review of Systems: A 10 system review of systems was completed on the patient and is negative except for what is stated in the HPI. Nursing and ancillary documentation was reviewed. [facility] Past Medical History Medical History Tobacco abuse Chronic obstructive pulmonary disease Coronary artery disease (10/2023) Nuclear stress test showed a large, severe non reversible infarcts including multiple meyers of the apex and mid anterior and mid posterior segments consistent with infarct with no reversible ischemia. Surgical History Surgical History History of section Family History Family History Mother Cerebrovascular accident Sibling FH: CABG (coronary artery bypass surgery) Father Stented coronary artery Social History Social History Social History: Surrogate medical decision maker: Meghan Babcock, daughter. Code status: Full code. Smoking packs per day: 1 Smoking cigarettes per day: 20.0 Years smoked: 47 Smoking pack-years: 47.00 Smoking status: Light tobacco smoker Second hand tobacco smoke exposure: Yes Alcohol intake: former Drinks per week: 12 Substance use: never Substance use type: does not use Do You Feel Safe in your Home?: Yes Lack of Transportation: No Lack of Food: Never True Current Housing: I Have Housing Concerned About Future Housing: No Difficulty Paying Gas/Electric Bills: No Difficulty Paying for Meds: No Currently Unemployed: No Education: High School Diploma/GED Difficulty w/ Childcare or Family Care: No Living arrangements: with family Spiritual care concerns: No Exam 2 Narrative: GENERAL: Well-appearing, well-nourished, and in no acute distress. HEAD: Normocephalic, atraumatic. EYES: PERRLA and EOMI. ENT: Nares clear, no rhinorrhea or epistaxis. Mucous membranes moist. NECK: Supple. CHEST: Clear to auscultation. No respiratory distress. HEART: Regular rate and rhythm. No murmur heard. Normal peripheral pulses. ABDOMEN: Soft, nontender, nondistended, normal active bowel sounds. EXTREMITIES: Normal range of motion. No edema. SKIN: Warm, dry, no rash. NEURO: No focal deficits. Alert and oriented x3. PSYCH: Normal mood and affect. Course Vital Signs Vital signs: Vital Signs Pulse Rate 116 H 11/17/24 08:10 Respiratory Rate 19 11/17/24 08:10 Blood Pressure 130/77 11/17/24 08:10 Pulse Oximetry 97 11/17/24 08:10 Oxygen Delivery Nasal Cannula 11/17/24 08:10 Oxygen Flow Rate 2 11/17/24 08:10 Pulse Rate 102 H 11/17/24 08:49 Respiratory Rate 20 11/17/24 08:49 Blood Pressure 97/72 L 11/17/24 08:44 Pulse Oximetry 99 11/17/24 08:22 Oxygen Delivery Nasal Cannula 11/17/24 08:22 Oxygen Flow Rate 2 11/17/24 08:22 Medical Decision Making Vital Signs Vital Signs: Vital Signs Pulse Rate 116 H 11/17/24 08:10 Respiratory Rate 19 11/17/24 08:10 Blood Pressure 130/77 11/17/24 08:10 Pulse Oximetry 97 11/17/24 08:10 Oxygen Delivery Nasal Cannula 11/17/24 08:10 Oxygen Flow Rate 2 11/17/24 08:10 Pulse Rate 102 H 11/17/24 08:49 Respiratory Rate 20 11/17/24 08:49 Blood Pressure 97/72 L 11/17/24 08:44 Pulse Oximetry 99 11/17/24 08:22 Oxygen Delivery Nasal Cannula 11/17/24 08:22 Oxygen Flow Rate 2 11/17/24 08:22 Lab Data 11/17/24 08:42 11/17/24 08:42 Labs: Lab Results 11/17/24 11/17/24 11/17/24 Range/Units 08:42 08:55 09:13 WBC 12.6 H (4.5-10.0) K/mm3 RBC 4.96 (4.2-5.4) M/mm3 Hgb 15.9 H (12.0-15.0) g/dL Hct 51.0 H (37.0-47.0) % MCV 102.8 H (80-100) fl MCH 32.1 (26-34) pg MCHC 31.2 L (32-36) g/dl RDW 14.0 (11.5-14.5) % Plt Count 220 (150-375) k/mm3 MPV 10.2 (7.4-10.4) fl Immature Gran % (Auto) 0.6 H (0-0.5) % Neut % (Auto) 75.7 H (45.5-73.1) % Lymph % (Auto) 14.5 L (18.3-44.2) % [place] % (Auto) 6.3 (2.6-8.5) % Eos % (Auto) 2.5 (0-4.4) % Baso % (Auto) 0.4 (0.2-1.2) % Lymph # (Auto) 1.82 (0.9-3.2) K/mm3 [place] # (Auto) 0.8 H (0.1-0.6) K/mm3 Eos # (Auto) 0.3 (0-0.3) K/mm3 Baso # (Auto) 0.1 (0.0-0.1) K/mm3 Abs Immat Gran (auto) 0.07 H (0.00-0.031) K/mm3 Absolute Neuts (auto) 9.5 H (1.3-6.7) K/mm3 Absolute Nucleated RBC 0.000 (0.0-0.012) K/mm3 Nucleated RBC % 0.0 (0.0-0.2) % PT 12.4 (11.1-14.7) Seconds INR 0.9 APTT 24.5 (22.3-36.8) Seconds Sodium 138 (137-145) mmol/L Potassium 3.9 (3.4-5.0) mmol/L Chloride 104 (98-107) mmol/L Carbon Dioxide 29 (22-30) mmol/L Anion Gap 5 (4-12) mmol/L BUN 16 (7-17) mg/dL Creatinine 0.78 (0.7-1.0) mg/dL Estim Creat Clear Calc Not Reportable Estimated GFR > 60 (59 - ) Glucose 111 H (65-110) mg/dL Lactic Acid 1.1 (0.7-2.0) mmol/L Calcium 9.1 (8.4-10.2) mg/dL Magnesium 2.1 (1.6-2.3) mg/dL Total Bilirubin 0.8 (0.2-1.3) mg/dL AST 24 (14-36) U/L ALT 25 (6-35) U/L Alkaline Phosphatase 59 (38-126) U/L Troponin I < 0.012 (0.000-0.034) ng/mL NT-Pro-B Natriuret Pep 314 H (19.9-100) pg/mL Total Protein 7.0 (6.3-8.2) g/dL Albumin 4.1 (3.5-5.1) g/dL Procalcitonin 0.1 ng/mL Urine Color Yellow (Yellow) Urine Appearance Clear (Clear) Urine pH 6.0 (5.0-9.0) Ur Specific [place] 1.016 (1.001-1.035) Urine Protein Negative (Negative) mg/dL Urine Glucose (UA) Negative (Negative) mg/dL Urine Ketones Negative (Negative) mg/dL Ur Blood (Man) Negative (Negative) Urine Nitrate Negative (Negative) Urine Bilirubin Negative (Negative) Urine Urobilinogen 0.2 (<2.0) mg/dL Leukocyte Esterase Rfl 3+ H (Negative) JUANITA/UL Urine RBC 0-2 (0-2) /hpf Urine WBC 51-100 H (0-3) /hpf Ur Squamous Epith Cells Few (Few) /hpf Urine Bacteria None seen /hpf Urine Casts 0-2 Influenza A (RT-PCR) Negative (Negative) Influenza B (RT-PCR) Negative (Negative) RSV (RT-PCR) Negative (Negative) SARS-CoV-2 RNA (RT-PCR) Negative (Negative) Discharge Plan Discharge Clinical Impression: Acute exacerbation of chronic obstructive pulmonary disease Patient Disposition: Still a Patient Condition: Stable Patient Language: Citizen Of [place] Prescriptions: No Action albuterol sulfate 90 mcg/actuation HFA aerosol inhaler 2 puff INHALATION TID PRN (Reason: Shortness Of Breath Or Wheezing) fluticasone propion-salmeterol [Advair HFA] 115-21 mcg/actuation HFA aerosol inhaler 2 puff INHALATION BID Incruse Ellipta 62.5 mcg/actuation blister with device 1 inh INHALATION DAILY nitroglycerin [Nitrostat] 0.4 mg Tablet, Sublingual 0.4 mg sublingual Q5MIN PRN (Reason: Chest Pain) Qty: 10 0RF Patient Comments: has not had to admin ipratropium-albuterol 0.5 mg-3 mg(2.5 mg base)/3 mL Solution For Nebulization 3 ml inhalation Q6HRT Qty: 30 0RF prednisone 20 mg Tablet 40 mg PO DAILY@0800 Qty: 6 0RF buspirone 10 mg Tablet 10 mg PO Q12HR Qty: 60 0RF metoprolol succinate [Toprol XL] 25 mg Tablet Extended Release 24 Hr 25 mg PO QAM Qty: 30 0RF levofloxacin 750 mg tablet 750 mg PO DAILY Qty: 5 0RF Follow-up/Referrals: José Miguel,MD [place] [Primary Care Provider] - Time of Disposition: 10:36
[2024-11-17] MEDS: LORazepam INJ (*CRX) 2 MG/ML VIAL 0.5 MG IV PUSH (11:08)
--- NOTE | 2024-11-17 11:40 | ADMGEN ---
This patient, Minnie Anguiano, was admitted to Medical Room 252-01. Patient/family oriented to hospital policies and general routines including ID bracelet, bed and alarms, visiting hours, pain management, procedures, bathroom and other care routines, personal items, smoking policy, room service/diet, and visiting hours. Information on how to activate the Rapid Response Team has been discussed. Patient/Family are encouraged to report perceived risks to care and to ask questions if they do not understand what they are told or what they should do.
[2024-11-17] MEDS: methylPREDNISolone SOD SUCC 125 MG VIAL 60 MG IV PUSH ×2 (13:32→21:45)
--- NOTE | 2024-11-17 13:37 | P.HP_ITS ---
H&P: HPI History of Present Illness Date/Time: 11/17/24 13:37 Chief Complaint: SOB Narrative: 64-year-old female with history of anxiety, COPD/asthma presented to ED due to severe respiratory distress.Patient is recently discharged on 11/11/2024 with following instructions Prednisone 40 mg p.o. q.day x3 days,Levaquin 750 mg p.o. q.day x5 days,Advair 115-21 at 2 puffs b.i.d,Incruse Ellipta 62.5 at 1 puff q.day,DuoNebs q.6 hours p.r.n. shortness of breath or wheezing,Albuterol 2 puffs q.4 hours p.r.n. shortness of breath or wheezing ,Oxygen at rest and with activity per formal home O2 assessment,Oxygen at night per overnight oximetry which can be performed as an outpatient. Pertinent ED labs: WBC 12.6, hemoglobin 15.9, hematocrit 51,PLT 220, sodium 138, potassium 3.9, creatinine 0.78 Chest x-ray shows No acute cardiopulmonary pathology RSV COVID flu negative Patient is a admitted in the setting of COPD exacerbation possibly due to pneumonia. Patient is currently on nasal cannula 2 L. Hx of smoking 1PPD for long period of time. Patient was never seen a 3d modeler and underwent PFTs. Patient reports she underwent cardiac catheterization last year but did not show any significant findings and she follows up with Dr. Downing but recommended her to follow as needed. Patient also has a history of anxiety disorder but was advised by PCP to follow-up with the psychiatrist. Patient will be started on buspirone 10 mg p.o. b.i.d. on last admission and advised to follow-up with psychiatrist as outpatient. Patient started on prednisone,ceftriaxone and doxycycline. Blood cultures to follow.During the evaluation patient reports she was doing well after the discharge but lately she had palpitations and unable to quit smoking. Review of Systems Review of Systems: A 10 system review of systems was completed on the patient and is negative except for what is stated in the HPI. Nursing and ancillary documentation was reviewed. [facility] Past Medical History Medical History Tobacco abuse Chronic obstructive pulmonary disease Coronary artery disease (10/2023) Nuclear stress test showed a large, severe non reversible infarcts including multiple meyers of the apex and mid anterior and mid posterior segments consistent with infarct with no reversible ischemia. Surgical History Surgical History History of section Family History Family History Mother Cerebrovascular accident Sibling FH: CABG (coronary artery bypass surgery) Father Stented coronary artery Social History Social History Social History: Surrogate medical decision maker: Meghan Babcock, daughter. Code status: Full code. Smoking packs per day: 1 Smoking cigarettes per day: 20.0 Years smoked: 48 Smoking pack-years: 48.00 Smoking status: Current every day smoker Tobacco type: cigarettes Second hand tobacco smoke exposure: Yes Alcohol intake: current Drinks per week: 14 Substance use: never Substance use type: does not use Do You Feel Safe in your Home?: Yes Lack of Transportation: No Lack of Food: Never True Current Housing: I Have Housing Concerned About Future Housing: No Difficulty Paying Gas/Electric Bills: No Difficulty Paying for Meds: No Currently Unemployed: No Education: High School Diploma/GED Difficulty w/ Childcare or Family Care: No Living arrangements: with family Spiritual care concerns: No Meds Home Medications and Allergies Home Medications ?Medication ?Instructions ?Recorded ?Confirmed ?Type albuterol sulfate 90 mcg/actuation 2 puff inhalation TID PRN 10/26/23 11/17/24 History aerosol inhaler Shortness Of Breath Or Wheezing fluticasone propionate 115 2 puff inhalation BID 10/26/23 11/17/24 History mcg-salmeterol 21 mcg/actuation HFA inhaler (Advair HFA) umeclidinium 62.5 mcg/actuation 1 inh inhalation DAILY 10/26/23 11/17/24 History blister powder for inhalation (Incruse Ellipta) nitroglycerin 0.4 mg sublingual 0.4 mg sublingual Q5MIN PRN Chest 10/28/23 11/17/24 Rx tablet (Nitrostat) Pain #10 tabs buspirone 10 mg tablet 10 mg PO Q12HR #60 tabs 11/11/24 11/17/24 Rx metoprolol succinate 25 mg 25 mg PO QAM #30 tabs 11/11/24 11/17/24 Rx tablet,extended release 24 hr (Toprol XL) ipratropium 0.5 mg-albuterol 3 mg 3 ml inhalation Q6HRT PRN 11/17/24 11/17/24 History (2.5 mg base)/3 mL nebulization shortness of breath soln Allergies Allergy/AdvReac Type Severity Reaction Status Date / Time codeine AdvReac Itching Verified 11/17/24 11:49 Vital Signs Vital Signs - 24 hr 11/17/24 08:10 11/17/24 08:22 11/17/24 08:22 Pulse Rate 116 H 113 H Respiratory Rate 19 Blood Pressure 130/77 Pulse Oximetry 97 99 Oxygen Delivery Nasal Cannula Nasal Cannula Oxygen Flow Rate 2 2 11/17/24 08:35 11/17/24 08:44 11/17/24 08:44 Pulse Rate 102 H 107 H 108 H Respiratory Rate 20 Blood Pressure 105/69 125/69 Pulse Oximetry Oxygen Delivery Oxygen Flow Rate 11/17/24 08:44 11/17/24 08:49 11/17/24 09:46 Pulse Rate 122 H 102 H 112 H Respiratory Rate 20 30 H Blood Pressure 97/72 L 117/70 Pulse Oximetry 93 Oxygen Delivery Oxygen Flow Rate 11/17/24 10:00 11/17/24 10:54 Pulse Rate 98 93 Respiratory Rate 22 H 23 H Blood Pressure 98/67 L 103/66 Pulse Oximetry 95 96 Oxygen Delivery Oxygen Flow Rate Exam Narrative: GENERAL: Well-appearing, well-nourished, and in no acute distress. HEAD: Normocephalic, atraumatic. EYES: PERRLA and EOMI. ENT: Nares clear, no rhinorrhea or epistaxis. Mucous membranes moist. NECK: Supple. CHEST: Clear to auscultation. No respiratory distress. HEART: Regular rate and rhythm. No murmur heard. Normal peripheral pulses. ABDOMEN: Soft, nontender, nondistended, normal active bowel sounds. EXTREMITIES: Normal range of motion. No edema. SKIN: Warm, dry, no rash. NEURO: No focal deficits. Alert and oriented x3. PSYCH: Normal mood and affect. H&P: Results Labs Labs: Short CBC 11/17/24 Range/Units 08:42 WBC 12.6 H (4.5-10.0) K/mm3 Hgb 15.9 H (12.0-15.0) g/dL Hct 51.0 H (37.0-47.0) % Plt Count 220 (150-375) k/mm3 BMP 11/17/24 08:42 Sodium 138 Potassium 3.9 Chloride 104 Carbon Dioxide 29 BUN 16 Creatinine 0.78 Glucose 111 H Calcium 9.1 Cardiac Enzymes 11/17/24 Range/Units 08:42 Troponin I < 0.012 (0.000-0.034) ng/mL Liver Function 11/17/24 Range/Units 08:42 Total Bilirubin 0.8 (0.2-1.3) mg/dL AST 24 (14-36) U/L ALT 25 (6-35) U/L Alkaline Phosphatase 59 (38-126) U/L Albumin 4.1 (3.5-5.1) g/dL Urine 11/17/24 Range/Units 09:13 Urine Color Yellow (Yellow) Urine Appearance Clear (Clear) Urine pH 6.0 (5.0-9.0) Ur Specific [place] 1.016 (1.001-1.035) Urine Protein Negative (Negative) mg/dL Urine Glucose (UA) Negative (Negative) mg/dL Assessment and Plan Assessment and plan (1) Anxiety: Code(s): F41.9 - Anxiety disorder, unspecified Status: Acute (2) CAD (coronary artery disease): Code(s): I25.10 - Atherosclerotic heart disease of [place] coronary artery without angina pectoris Status: Acute (3) Polycythemia: Code(s): D75.1 - Secondary polycythemia Status: Acute (4) Community acquired pneumonia: Qualifiers: Laterality: left Lung location: lower lobe of lung Qualified Code(s): J18.9 - Pneumonia, unspecified organism Code(s): J18.9 - Pneumonia, unspecified organism Status: Acute Plan Plan COPD exacerbation History of anxiety and panic attack Chronic smoking history 1 pack per day Home 2 L oxygen baseline Currently on nasal cannula 2 L Repeat ABG tomorrow in nasal cannula Started on ceftriaxone and doxycycline Methylprednisone 60mg IV q 8hrs Nasal MRSA pending Flu, COVID, RSV negative Sinus Tachycardia Possibly due to hypoxia Polycythemia Possibly due to smoking Panic attack Continue buspirone 10 mg p.o. b.i.d. Follow-up with Psychiatry as outpatient CAD Cardiac Cath 12/18/2023: 1. Right coronary dominant circulation with no angiographically significant coronary disease, minimal plaquing is noted at the LAD ostium as described above 2. normal appearing left ventricular systolic function with no wall motion abnormalities, stress testing had suggested evidence of previous anterior infarction which appears not to be the case Continue aspirin and atorvastatin Restart metoprolol succinate 25 mg p.o. q.d. Quality VTE Prophylaxis VTE prophylaxis: pharmacologic ordered Hospitalist [facility] Advance Care Plan I have confirmed that the patient's Advanced Care Plan is present, code status is documented, or surrogate decision maker is listed in patient medical record.: Yes Medication Reconciliation I have utilized all available resources to obtain, update and review the patients current medications (includes all prescriptions, OTC, herbals, cannabis, and nutritional supplements).: Yes
[2024-11-17] MEDS: DOXYCYCLINE 100 MG/NS 100 ML 100 MG/100 ML BAG IVPB (16:20)
[2024-11-17 17:58] LABS: MRSA (PCR) NOT DETECTED (NOT DETECTE)
[2024-11-17] MEDS: busPIRone HCL 10 MG TABLET PO (20:33)
[2024-11-17] MEDS: ENOXAPARIN 40 MG/0.4 ML SYRINGE SUB-Q (20:33)
[2024-11-18] VITALS (17 sets, daily range): BP systolic 111–132; BP diastolic 50–68; PULSE 79–105; RESP 16–20; TEMP 36.4–36.5; O2SAT 93–98
[2024-11-18] MEDS: IPRATROPIUM 0.5 MG/ALBUTEROL SULFATE 2.5 MG AMPUL.NEB 3 ML INHALATION ×4 (02:40→20:50)
[2024-11-18] MEDS: methylPREDNISolone SOD SUCC 125 MG VIAL 60 MG IV PUSH ×3 (05:33→21:25)
[2024-11-18] MEDS: DOXYCYCLINE 100 MG/NS 100 ML 100 MG/100 ML BAG IVPB ×2 (05:33→16:13)
[2024-11-18 08:12] LABS: Hematocrit 47.6 % (37.0-47.0); Hemoglobin 15.4 g/dL (12.0-15.0); Mean Corpuscular HGB Conc 32.4 g/dl (32-36); Mean Corpuscular Hemoglobin 32.8 pg (26-34); Mean Corpuscular Volume 101.3 fl (80-100); Mean Platelet Volume 10.3 fl (7.4-10.4); Platelet Count Result 199 k/mm3 (150-375); Red Cell Distribution Width 13.5 % (11.5-14.5); White Blood Count 11.5 K/mm3 (4.5-10.0)
[2024-11-18] MEDS: ENOXAPARIN 40 MG/0.4 ML SYRINGE SUB-Q (08:15)
[2024-11-18] MEDS: METOPROLOL SUCCINATE EXT REL 25 MG TABCR PO (08:15)
[2024-11-18] MEDS: busPIRone HCL 10 MG TABLET PO ×2 (08:15→21:25)
[2024-11-18 08:22] LABS: Alanine Aminotransferase 26 U/L (6-35); Albumin Level 4.1 g/dL (3.5-5.1); Alkaline Phosphatase 51 U/L (38-126); Anion Gap 8 mmol/L (4-12); Aspartate Amino Transferase 23 U/L (14-36); Bilirubin,Total 0.4 mg/dL (0.2-1.3); Blood Urea Nitrogen 17 mg/dL (7-17); Calcium 9.3 mg/dL (8.4-10.2); Carbon Dioxide 27 mmol/L (22-30); Chloride 103 mmol/L (98-107); Estimated CRCL calculation 71 ml/min; Estimated Glomerular Filt Rate > 60; Glucose 183 mg/dL (65-110); Potassium 4.1 mmol/L (3.4-5.0); Sodium 138 mmol/L (137-145)
--- NOTE | 2024-11-18 13:11 | PM.IMPN ---
Progress Note: A&P Assessment and Plan (1) Anxiety: Code(s): F41.9 - Anxiety disorder, unspecified Status: Acute (2) CAD (coronary artery disease): Code(s): I25.10 - Atherosclerotic heart disease of [place] coronary artery without angina pectoris Status: Acute (3) Polycythemia: Code(s): D75.1 - Secondary polycythemia Status: Acute (4) Community acquired pneumonia: Qualifiers: Laterality: left Lung location: lower lobe of lung Qualified Code(s): J18.9 - Pneumonia, unspecified organism Code(s): J18.9 - Pneumonia, unspecified organism Status: Acute Plan Plan COPD exacerbation History of anxiety and panic attack Chronic smoking history 1 pack per day Home 2 L oxygen baseline Currently on nasal cannula 2 L Repeat ABG tomorrow in nasal cannula Started on ceftriaxone and doxycycline Methylprednisone 60mg IV q 8hrs Nasal MRSA pending Flu, COVID, RSV negative Sinus Tachycardia Possibly due to hypoxia Polycythemia Possibly due to smoking Panic attack Continue buspirone 10 mg p.o. b.i.d. Follow-up with Psychiatry as outpatient CAD Cardiac Cath 12/18/2023: 1. Right coronary dominant circulation with no angiographically significant coronary disease, minimal plaquing is noted at the LAD ostium as described above 2. normal appearing left ventricular systolic function with no wall motion abnormalities, stress testing had suggested evidence of previous anterior infarction which appears not to be the case Continue aspirin and atorvastatin Restart metoprolol succinate 25 mg p.o. q.d. Subjective Date/time seen: 11/18/24 13:11 Interval history: Patient still has episodes of palpitation while walking. Advised nursing to increase the oxygen need during activity. Review of Systems Review of Systems: A 10 system review of systems was completed on the patient and is negative except for what is stated in the HPI. Nursing and ancillary documentation was reviewed. Exam Narrative: GENERAL: Well-appearing, well-nourished, and in no acute distress. HEAD: Normocephalic, atraumatic. EYES: PERRLA and EOMI. ENT: Nares clear, no rhinorrhea or epistaxis. Mucous membranes moist. NECK: Supple. CHEST: Clear to auscultation. No respiratory distress. HEART: Regular rate and rhythm. No murmur heard. Normal peripheral pulses. ABDOMEN: Soft, nontender, nondistended, normal active bowel sounds. EXTREMITIES: Normal range of motion. No edema. SKIN: Warm, dry, no rash. NEURO: No focal deficits. Alert and oriented x3. PSYCH: Normal mood and affect. Objective Data Vital Signs Vital Signs: Vital Signs - 24 hr 11/17/24 13:55 11/17/24 15:01 11/17/24 15:10 Temperature 97.2 F L Pulse Rate 107 H 87 87 Respiratory Rate 18 20 20 Blood Pressure 104/78 Pulse Oximetry 95 Oxygen Delivery Oxygen Flow Rate 11/17/24 16:00 11/17/24 20:00 11/17/24 20:00 Temperature Pulse Rate 98 93 Respiratory Rate Blood Pressure Pulse Oximetry 95 Oxygen Delivery Nasal Cannula Oxygen Flow Rate 2 11/17/24 21:31 11/17/24 21:32 11/17/24 21:42 Temperature Pulse Rate 88 89 Respiratory Rate 20 20 Blood Pressure Pulse Oximetry 94 Oxygen Delivery Nasal Cannula Oxygen Flow Rate 2 11/17/24 21:46 11/18/24 00:00 11/18/24 02:41 Temperature 97.9 F Pulse Rate 84 83 87 Respiratory Rate 16 18 Blood Pressure 115/57 L Pulse Oximetry 96 Oxygen Delivery Oxygen Flow Rate 11/18/24 04:00 11/18/24 05:49 11/18/24 07:42 Temperature 97.7 F Pulse Rate 86 95 101 H Respiratory Rate 16 20 Blood Pressure 132/68 Pulse Oximetry 94 93 Oxygen Delivery Nasal Cannula Oxygen Flow Rate 2 11/18/24 07:42 11/18/24 07:55 11/18/24 08:00 Temperature Pulse Rate 101 H 94 93 Respiratory Rate 20 20 Blood Pressure Pulse Oximetry Oxygen Delivery Oxygen Flow Rate 11/18/24 08:15 11/18/24 12:00 Temperature Pulse Rate 90 90 Respiratory Rate Blood Pressure Pulse Oximetry Oxygen Delivery Oxygen Flow Rate Intake/Output Intake/Output: Intake & Output 11/15/24 11/16/24 11/17/24 11/18/24 23:59 23:59 23:59 23:59 Intake Total 630 710 Balance 630 710 Meds/Results Medications: Active Medications Generic Name Dose Route Start Last Admin Trade Name Freq PRN Reason Stop Dose Admin Acetaminophen 650 mg 11/17/24 10:36 Acetaminophen 325 Mg Tablet PO Q4H PRN Mild Pain (1-3) or Fever Albuterol 2 puff 11/17/24 15:44 Albuterol Sulfate (*Sp) Aerosol 1 Puff INHALATION TID PRN Shortness Of Breath Or Wheezing Albuterol/Ipratropium 3 ml 11/17/24 14:00 11/18/24 07:41 Ipratropium 0.5 Mg/Albuterol Sulfate 2.5 Mg Ampul.Neb 3 Ml INHALATION 3 ml Q6HRT EMILY Administration Albuterol/Ipratropium 3 ml 11/17/24 15:44 Ipratropium 0.5 Mg/Albuterol Sulfate 2.5 Mg Ampul.Neb 3 Ml INHALATION Q6HRT PRN shortness of breath Buspirone HCl 10 mg 11/17/24 21:00 11/18/24 08:15 Buspirone Hcl 10 Mg Tablet PO 10 mg Q12HR EMILY Administration Enoxaparin Sodium 40 mg 11/17/24 21:00 11/18/24 08:15 Enoxaparin 40 Mg/0.4 Ml Syringe SUB-Q 40 mg DAILY EMILY Administration Ceftriaxone Sodium 1 gm in 50 mls @ 100 mls/hr 11/17/24 17:00 11/17/24 16:55 Rocephin 1 Gm/Ns 50 Ml IVPB 11/22/24 16:59 Infused Q24H EMILY Infusion Doxycycline Hyclate 100 mg in 100 mls @ 100 mls/hr 11/17/24 17:00 11/18/24 06:33 Vibramycin 100 Mg/Ns 100 Ml IVPB 11/22/24 16:59 Infused Q12H EMILY Infusion Methylprednisolone Sodium Succinate 60 mg 11/17/24 14:00 11/18/24 05:33 Methylprednisolone Sod Succ 125 Mg Vial IV PUSH 60 mg Q8HR EMILY Administration Metoprolol Succinate 25 mg 11/18/24 09:00 11/18/24 08:15 Metoprolol Succinate Ext Rel 25 Mg Tabcr PO 25 mg QAM EMILY Administration Nitroglycerin 0.4 mg 11/17/24 15:44 Nitroglycerin Sl 0.4 Mg Tablet SUBLINGUAL Q5MIN PRN Chest Pain Ondansetron HCl 4 mg 11/17/24 10:36 Ondansetron Inj 4 Mg/2 Ml Vial IV PUSH Q4H PRN Nausea Radiology Results: ITS Impressions Chest X-Ray 11/17/24 09:11 IMPRESSION: No acute cardiopulmonary pathology. Labs Labs: Laboratory Results - last 24 hr 11/17/24 11/18/24 16:31 07:57 WBC 11.5 H RBC 4.70 Hgb 15.4 H Hct 47.6 H MCV 101.3 H MCH 32.8 MCHC 32.4 RDW 13.5 Plt Count 199 MPV 10.3 Sodium 138 Potassium 4.1 Chloride 103 Carbon Dioxide 27 Anion Gap 8 BUN 17 Creatinine 0.76 Estim Creat Clear Calc 71 Estimated GFR > 60 Glucose 183 H Calcium 9.3 Total Bilirubin 0.4 AST 23 ALT 26 Alkaline Phosphatase 51 Total Protein 7.0 Albumin 4.1 Nasal MRSA (PCR) Not detected Quality VTE Prophylaxis VTE prophylaxis: pharmacologic ordered Hospitalist [facility] Advance Care Plan I have confirmed that the patient's Advanced Care Plan is present, code status is documented, or surrogate decision maker is listed in patient medical record.: Yes Medication Reconciliation I have utilized all available resources to obtain, update and review the patients current medications (includes all prescriptions, OTC, herbals, cannabis, and nutritional supplements).: Yes
[2024-11-19] VITALS (18 sets, daily range): BP systolic 114–136; BP diastolic 54–63; PULSE 63–108; RESP 18–28; TEMP 36.5–36.8; O2SAT 92–97
[2024-11-19] MEDS: IPRATROPIUM 0.5 MG/ALBUTEROL SULFATE 2.5 MG AMPUL.NEB 3 ML INHALATION ×4 (02:48→20:51)
[2024-11-19 05:23] LABS: Hematocrit 47.7 % (37.0-47.0); Hemoglobin 14.8 g/dL (12.0-15.0); Mean Platelet Volume 10.5 fl (7.4-10.4); Platelet Count Result 198 k/mm3 (150-375); Red Blood Count 4.63 M/mm3 (4.2-5.4); Red Cell Distribution Width 13.7 % (11.5-14.5); White Blood Count 14.2 K/mm3 (4.5-10.0)
[2024-11-19] MEDS: methylPREDNISolone SOD SUCC 125 MG VIAL 60 MG IV PUSH (05:33)
[2024-11-19] MEDS: DOXYCYCLINE 100 MG/NS 100 ML 100 MG/100 ML BAG IVPB (05:33)
[2024-11-19 05:40] LABS: Alanine Aminotransferase 38 U/L (6-35); Albumin Level 3.8 g/dL (3.5-5.1); Alkaline Phosphatase 48 U/L (38-126); Anion Gap 7 mmol/L (4-12); Aspartate Amino Transferase 37 U/L (14-36); Bilirubin,Total 0.3 mg/dL (0.2-1.3); Blood Urea Nitrogen 22 mg/dL (7-17); Calcium 9.3 mg/dL (8.4-10.2); Carbon Dioxide 26 mmol/L (22-30); Chloride 105 mmol/L (98-107); Estimated CRCL calculation 72 ml/min; Estimated Glomerular Filt Rate > 60; Glucose 136 mg/dL (65-110); Potassium 4.2 mmol/L (3.4-5.0); Sodium 138 mmol/L (137-145)
[2024-11-19] MEDS: ENOXAPARIN 40 MG/0.4 ML SYRINGE SUB-Q (08:13)
[2024-11-19] MEDS: predniSONE 20 MG TABLET 40 MG PO (08:14)
[2024-11-19] MEDS: METOPROLOL SUCCINATE EXT REL 25 MG TABCR PO (08:15)
[2024-11-19] MEDS: busPIRone HCL 10 MG TABLET PO ×2 (08:15→20:57)
--- NOTE | 2024-11-19 16:22 | PM.IMPN ---
Progress Note: A&P Assessment and Plan (1) Anxiety: Code(s): F41.9 - Anxiety disorder, unspecified Status: Acute (2) CAD (coronary artery disease): Code(s): I25.10 - Atherosclerotic heart disease of [place] coronary artery without angina pectoris Status: Acute (3) Polycythemia: Code(s): D75.1 - Secondary polycythemia Status: Acute (4) Community acquired pneumonia: Qualifiers: Laterality: left Lung location: lower lobe of lung Qualified Code(s): J18.9 - Pneumonia, unspecified organism Code(s): J18.9 - Pneumonia, unspecified organism Status: Acute Plan Plan COPD exacerbation History of anxiety and panic attack Chronic smoking history 1 pack per day Home 2 L oxygen baseline Currently on nasal cannula 2 L Repeat ABG tomorrow in nasal cannula S/p ceftriaxone and doxycycline S/P Methylprednisone 60mg IV q 8hrs Prednisone 40 mg p.o. q.d. Started on levofloxacin 750 mg p.o. q.d. for 5 days Nasal MRSA pending Flu, COVID, RSV negative Sinus Tachycardia Possibly due to hypoxia Polycythemia Possibly due to smoking Panic attack Continue buspirone 10 mg p.o. b.i.d. Follow-up with Psychiatry as outpatient CAD Cardiac Cath 12/18/2023: 1. Right coronary dominant circulation with no angiographically significant coronary disease, minimal plaquing is noted at the LAD ostium as described above 2. normal appearing left ventricular systolic function with no wall motion abnormalities, stress testing had suggested evidence of previous anterior infarction which appears not to be the case Continue aspirin and atorvastatin Restart metoprolol succinate 25 mg p.o. q.d. Subjective Date/time seen: 11/19/24 16:22 Interval history: Patient is currently doing well better than yesterday. Still had episodes of sinus tachycardia during ambulation. Switched to oral antibiotic. Possible discharge tomorrow. Home O2 evaluation tomorrow Review of Systems Review of Systems: A 10 system review of systems was completed on the patient and is negative except for what is stated in the HPI. Nursing and ancillary documentation was reviewed. Exam Narrative: GENERAL: Well-appearing, well-nourished, and in no acute distress. HEAD: Normocephalic, atraumatic. EYES: PERRLA and EOMI. ENT: Nares clear, no rhinorrhea or epistaxis. Mucous membranes moist. NECK: Supple. CHEST: Clear to auscultation. No respiratory distress. HEART: Regular rate and rhythm. No murmur heard. Normal peripheral pulses. ABDOMEN: Soft, nontender, nondistended, normal active bowel sounds. EXTREMITIES: Normal range of motion. No edema. SKIN: Warm, dry, no rash. NEURO: No focal deficits. Alert and oriented x3. PSYCH: Normal mood and affect. Objective Data Vital Signs Vital Signs: Vital Signs - 24 hr 11/18/24 20:00 11/18/24 20:00 11/18/24 20:47 Temperature 97.7 F Pulse Rate 79 87 79 Respiratory Rate 16 16 Blood Pressure 111/50 L Pulse Oximetry 98 98 Oxygen Delivery Nasal Cannula Oxygen Flow Rate 2 11/18/24 20:50 11/18/24 20:50 11/18/24 21:00 Temperature Pulse Rate 90 90 93 Respiratory Rate 20 20 20 Blood Pressure Pulse Oximetry 96 Oxygen Delivery Nasal Cannula Oxygen Flow Rate 2 11/19/24 00:00 11/19/24 02:48 11/19/24 02:48 Temperature Pulse Rate 69 86 86 Respiratory Rate 28 H 28 H Blood Pressure Pulse Oximetry 92 Oxygen Delivery Nasal Cannula Oxygen Flow Rate 2 11/19/24 03:05 11/19/24 04:00 11/19/24 05:26 Temperature 97.7 F Pulse Rate 94 63 79 Respiratory Rate 20 18 Blood Pressure 136/63 Pulse Oximetry 94 Oxygen Delivery Oxygen Flow Rate 11/19/24 08:00 11/19/24 08:15 11/19/24 08:15 Temperature Pulse Rate 73 85 Respiratory Rate 18 Blood Pressure Pulse Oximetry 93 Oxygen Delivery Nasal Cannula Oxygen Flow Rate 3 11/19/24 08:26 11/19/24 08:26 11/19/24 12:04 Temperature Pulse Rate 77 83 Respiratory Rate 18 Blood Pressure Pulse Oximetry 93 Oxygen Delivery Nasal Cannula Oxygen Flow Rate 1 11/19/24 14:00 11/19/24 14:32 11/19/24 14:40 Temperature 97.8 F Pulse Rate 86 81 77 Respiratory Rate 19 18 18 Blood Pressure 114/57 L Pulse Oximetry 96 Oxygen Delivery Oxygen Flow Rate Intake/Output Intake/Output: Intake & Output 11/16/24 11/17/24 11/18/24 11/19/24 23:59 23:59 23:59 23:59 Intake Total 630 1740 930 Balance 630 1740 930 Meds/Results Medications: Active Medications Generic Name Dose Route Start Last Admin Trade Name Freq PRN Reason Stop Dose Admin Acetaminophen 650 mg 11/17/24 10:36 Acetaminophen 325 Mg Tablet PO Q4H PRN Mild Pain (1-3) or Fever Albuterol 2 puff 11/17/24 15:44 Albuterol Sulfate (*Sp) Aerosol 1 Puff INHALATION TID PRN Shortness Of Breath Or Wheezing Albuterol/Ipratropium 3 ml 11/17/24 14:00 11/19/24 14:32 Ipratropium 0.5 Mg/Albuterol Sulfate 2.5 Mg Ampul.Neb 3 Ml INHALATION 3 ml Q6HRT EMILY Administration Albuterol/Ipratropium 3 ml 11/17/24 15:44 Ipratropium 0.5 Mg/Albuterol Sulfate 2.5 Mg Ampul.Neb 3 Ml INHALATION Q6HRT PRN shortness of breath Buspirone HCl 10 mg 11/17/24 21:00 11/19/24 08:15 Buspirone Hcl 10 Mg Tablet PO 10 mg Q12HR EMILY Administration Enoxaparin Sodium 40 mg 11/17/24 21:00 11/19/24 08:13 Enoxaparin 40 Mg/0.4 Ml Syringe SUB-Q 40 mg DAILY EMILY Administration Ceftriaxone Sodium 1 gm in 50 mls @ 100 mls/hr 11/17/24 17:00 11/18/24 16:43 Rocephin 1 Gm/Ns 50 Ml IVPB 11/22/24 16:59 Infused Q24H EMILY Infusion Doxycycline Hyclate 100 mg in 100 mls @ 100 mls/hr 11/17/24 17:00 11/19/24 06:33 Vibramycin 100 Mg/Ns 100 Ml IVPB 11/22/24 16:59 Infused Q12H EMILY Infusion Metoprolol Succinate 25 mg 11/18/24 09:00 11/19/24 08:15 Metoprolol Succinate Ext Rel 25 Mg Tabcr PO 25 mg QAM EMILY Administration Nitroglycerin 0.4 mg 11/17/24 15:44 Nitroglycerin Sl 0.4 Mg Tablet SUBLINGUAL Q5MIN PRN Chest Pain Ondansetron HCl 4 mg 11/17/24 10:36 Ondansetron Inj 4 Mg/2 Ml Vial IV PUSH Q4H PRN Nausea Prednisone 40 mg 11/19/24 08:00 11/19/24 08:14 Prednisone 20 Mg Tablet PO 40 mg DAILY@0800 EMILY Administration Radiology Results: ITS Impressions Chest X-Ray 11/17/24 09:11 IMPRESSION: No acute cardiopulmonary pathology. Labs Labs: Laboratory Results - last 24 hr 11/19/24 05:06 WBC 14.2 H RBC 4.63 Hgb 14.8 Hct 47.7 H MCV 103.0 H MCH 32.0 MCHC 31.0 L RDW 13.7 Plt Count 198 MPV 10.5 H Sodium 138 Potassium 4.2 Chloride 105 Carbon Dioxide 26 Anion Gap 7 BUN 22 H Creatinine 0.74 Estim Creat Clear Calc 72 Estimated GFR > 60 Glucose 136 H Calcium 9.3 Total Bilirubin 0.3 AST 37 H ALT 38 H Alkaline Phosphatase 48 Total Protein 6.0 L Albumin 3.8 Quality VTE Prophylaxis VTE prophylaxis: pharmacologic ordered Hospitalist [facility] Advance Care Plan I have confirmed that the patient's Advanced Care Plan is present, code status is documented, or surrogate decision maker is listed in patient medical record.: Yes Medication Reconciliation I have utilized all available resources to obtain, update and review the patients current medications (includes all prescriptions, OTC, herbals, cannabis, and nutritional supplements).: Yes
[2024-11-19] MEDS: levoFLOXacin 750 MG TABLET PO (16:37)
[2024-11-20] VITALS (9 sets, daily range): BP systolic 125–137; BP diastolic 69–81; PULSE 78–116; RESP 16–18; TEMP 36.2–36.6; O2SAT 91–94
[2024-11-20] MEDS: IPRATROPIUM 0.5 MG/ALBUTEROL SULFATE 2.5 MG AMPUL.NEB 3 ML INHALATION ×2 (02:35→08:15)
[2024-11-20 05:16] LABS: Hematocrit 45.1 % (37.0-47.0); Hemoglobin 14.7 g/dL (12.0-15.0); Mean Corpuscular HGB Conc 32.6 g/dl (32-36); Mean Corpuscular Hemoglobin 32.6 pg (26-34); Mean Platelet Volume 10.3 fl (7.4-10.4); Platelet Count Result 190 k/mm3 (150-375); Red Blood Count 4.51 M/mm3 (4.2-5.4); Red Cell Distribution Width 13.8 % (11.5-14.5); White Blood Count 11.6 K/mm3 (4.5-10.0)
[2024-11-20 05:29] LABS: Alanine Aminotransferase 36 U/L (6-35); Albumin Level 3.6 g/dL (3.5-5.1); Alkaline Phosphatase 50 U/L (38-126); Anion Gap 4 mmol/L (4-12); Aspartate Amino Transferase 27 U/L (14-36); Bilirubin,Total 0.3 mg/dL (0.2-1.3); Blood Urea Nitrogen 22 mg/dL (7-17); Calcium 9.1 mg/dL (8.4-10.2); Carbon Dioxide 31 mmol/L (22-30); Chloride 105 mmol/L (98-107); Estimated CRCL calculation 55 ml/min; Estimated Glomerular Filt Rate 56; Glucose 89 mg/dL (65-110); Sodium 140 mmol/L (137-145)
[2024-11-20] MEDS: levoFLOXacin 750 MG TABLET PO (08:03)
[2024-11-20] MEDS: METOPROLOL SUCCINATE EXT REL 25 MG TABCR PO (08:03)
[2024-11-20] MEDS: predniSONE 20 MG TABLET 40 MG PO (08:03)
[2024-11-20] MEDS: busPIRone HCL 10 MG TABLET PO (08:03)
[2024-11-20] MEDS: ENOXAPARIN 40 MG/0.4 ML SYRINGE SUB-Q (08:03)
--- NOTE | 2024-11-20 10:05 | P.DS_ITS ---
DS: Admitting Diagnosis Discharge Date 11/20/2024 Admitting Diagnosis Shortness of breath DS: Discharge Diagnosis Discharge Diagnosis (1) Anxiety: Code(s): F41.9 - Anxiety disorder, unspecified Status: Acute (2) CAD (coronary artery disease): Code(s): I25.10 - Atherosclerotic heart disease of [place] coronary artery without angina pectoris Status: Acute (3) Polycythemia: Code(s): D75.1 - Secondary polycythemia Status: Acute (4) Community acquired pneumonia: Qualifiers: Laterality: left Lung location: lower lobe of lung Qualified Code(s): J18.9 - Pneumonia, unspecified organism Code(s): J18.9 - Pneumonia, unspecified organism Status: Acute Plan Plan COPD exacerbation History of anxiety and panic attack Chronic smoking history 1 pack per day Home 2 L oxygen baseline Currently on nasal cannula 2 L Repeat ABG tomorrow in nasal cannula S/p ceftriaxone and doxycycline S/P Methylprednisone 60mg IV q 8hrs Prednisone 40 mg p.o. q.d. Started on levofloxacin 750 mg p.o. q.d. for 5 days Nasal MRSA pending Flu, COVID, RSV negative Sinus Tachycardia Possibly due to hypoxia Polycythemia Possibly due to smoking Panic attack Continue buspirone 10 mg p.o. b.i.d. Follow-up with Psychiatry as outpatient CAD Cardiac Cath 12/18/2023: 1. Right coronary dominant circulation with no angiographically significant coronary disease, minimal plaquing is noted at the LAD ostium as described above 2. normal appearing left ventricular systolic function with no wall motion abnormalities, stress testing had suggested evidence of previous anterior infarction which appears not to be the case Continue aspirin and atorvastatin Restart metoprolol succinate 25 mg p.o. q.d. DS: Summary Hospital Course Hospital Course: 64-year-old female with history of anxiety, COPD/asthma presented to ED due to severe respiratory distress.Patient is recently discharged on 11/11/2024 with following instructions Prednisone 40 mg p.o. q.day x3 days,Levaquin 750 mg p.o. q.day x5 days,Advair 115-21 at 2 puffs b.i.d,Incruse Ellipta 62.5 at 1 puff q.day,DuoNebs q.6 hours p.r.n. shortness of breath or wheezing,Albuterol 2 puffs q.4 hours p.r.n. shortness of breath or wheezing ,Oxygen at rest and with activity per formal home O2 assessment,Oxygen at night per overnight oximetry which can be performed as an outpatient. Pertinent ED labs: WBC 12.6, hemoglobin 15.9, hematocrit 51,PLT 220, sodium 138, potassium 3.9, creatinine 0.78 Chest x-ray shows No acute cardiopulmonary pathology RSV COVID flu negative Patient is a admitted in the setting of COPD exacerbation possibly due to pneumonia. Patient is currently on nasal cannula 2 L. Hx of smoking 1PPD for long period of time. 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 Patient reports she underwent cardiac catheterization last year but did not show any significant findings and she follows up with Dr. Downing but recommended her to follow as needed. Patient also has a history of anxiety disorder but was advised by PCP to follow-up with the psychiatrist. Patient will be started on buspirone 10 mg p.o. b.i.d. on last admission and advised to follow-up with psychiatrist as outpatient. Patient started on prednisone,ceftriaxone and doxycycline. Blood cultures to follow.During the evaluation patient reports she was doing well after the discharge but lately she had palpitations and unable to quit smoking. On the day of discharge, the patient was seen and examined and advised to quit smoking. Vital signs were stable. Physical exam were stable and labs were reviewed at length. Discharge instructions, medications, and follow-up appointments were discussed with the patient at length and all day questions were answered. ER warnings were given. Status at Discharge Cognitive/behavioral status at discharge: Stable Time Spent with Patient Time attestation: Total time spent providing and/or coordinating discharge services: 45 minute Exam Narrative: GENERAL: Well-appearing, well-nourished, and in no acute distress. HEAD: Normocephalic, atraumatic. EYES: PERRLA and EOMI. ENT: Nares clear, no rhinorrhea or epistaxis. Mucous membranes moist. NECK: Supple. CHEST: Clear to auscultation. No respiratory distress. HEART: Regular rate and rhythm. No murmur heard. Normal peripheral pulses. ABDOMEN: Soft, nontender, nondistended, normal active bowel sounds. EXTREMITIES: Normal range of motion. No edema. SKIN: Warm, dry, no rash. NEURO: No focal deficits. Alert and oriented x3. PSYCH: Normal mood and affect. DS: Data Data Completed and Pending Labs on day of discharge: Labs from last 24 hours 11/20/24 05:00 WBC 11.6 H RBC 4.51 Hgb 14.7 Hct 45.1 MCV 100.0 MCH 32.6 MCHC 32.6 RDW 13.8 Plt Count 190 MPV 10.3 Sodium 140 Potassium 4.0 Chloride 105 Carbon Dioxide 31 H Anion Gap 4 BUN 22 H Creatinine 0.99 Estim Creat Clear Calc 55 Estimated GFR 56 L Glucose 89 Calcium 9.1 Total Bilirubin 0.3 AST 27 ALT 36 H Alkaline Phosphatase 50 Total Protein 6.0 L Albumin 3.6 Imaging Radiologist's impression: ITS Impressions Chest X-Ray 11/17/24 09:11 IMPRESSION: No acute cardiopulmonary pathology. Discharge Plan Discharge Attending physician on discharge: Brent Yepez Discharging Clinician: Brent Yepez Patient Disposition: Home Activity: as tolerated Diet: heart healthy Discharge Instructions: Advised to quit smoking Check blood pressure 1 to 2 times a day. Record and bring into your doctor for review. Call your doctor if your blood pressure is greater than 180/110 or less than 90/45. Walk with cane or other assist device. Take precautions to avoid falls. Rise slowly from a lying or sitting position. Pause before standing or walking. Contact your doctor or call 911 and come to the Emergency Room if you have any type of trauma, lightheadedness with standing or other worrisome symptoms. Avoid NSAIDs (ibuprofen, naproxen, Aleve). Tylenol is safe to take. Follow-up with your primary care provider in 1-2 weeks. Please call for appointment. Follow-up with pulmonology in 2-4 weeks. Please call for an appointment. Thank you for using [facility] for your health care needs. Patient Instructions: Antibiotic Form Patient Language: Maltese Stand Alone Forms: General Discharge Information Follow-up/Referrals: José Miguel,MD Parish [Primary Care Provider] - Parish Ragsdale MD [Physician] - Discharge Medications: New levofloxacin 750 mg tablet 750 mg PO DAILY Qty: 5 0RF Rx Instructions: Please complete the course for 5 days prednisone 20 mg tablet 40 mg PO DAILY Qty: 10 0RF Rx Instructions: Please take 40mg PO x 5 days Continued albuterol sulfate 90 mcg/actuation HFA aerosol inhaler 2 puff INHALATION TID PRN (Reason: Shortness Of Breath Or Wheezing) fluticasone propion-salmeterol [Advair HFA] 115-21 mcg/actuation HFA aerosol inhaler 2 puff INHALATION BID Incruse Ellipta 62.5 mcg/actuation blister with device 1 inh INHALATION DAILY nitroglycerin [Nitrostat] 0.4 mg Tablet, Sublingual 0.4 mg sublingual Q5MIN PRN (Reason: Chest Pain) Qty: 10 0RF Patient Comments: has not had to admin buspirone 10 mg Tablet 10 mg PO Q12HR Qty: 60 0RF metoprolol succinate [Toprol XL] 25 mg Tablet Extended Release 24 Hr 25 mg PO QAM Qty: 30 0RF ipratropium-albuterol 0.5 mg-3 mg(2.5 mg base)/3 mL Solution For Nebulization 3 ml inhalation Q6HRT PRN (Reason: shortness of breath) Date of admission: 11/17/24 10:36 Primary Care Provider: Emma*Parish Admitting Provider: Brent Yepez Attending physician on admission: Brent Yepez Condition: Stable
== END 2024-11-20 12:10 | disposition home or self-care (01) ==
LOC: ANHED 10:37 → ANH2MED 11:07
PROVIDERS: Admitting Provider General Practice; Emergency Provider Emergency Medicine; PCP Internal Medicine; Visit Provider General Practice
DX: J44.1 Chronic obstructive pulmonary disease with (acute) exacerbation (principal); J44.0 Chronic obstructive pulmonary disease with (acute) lower respiratory infection; J18.9 Pneumonia, unspecified organism; I25.10 Atherosclerotic heart disease of native coronary artery without angina pectoris; R00.0 Tachycardia, unspecified; F17.210 Nicotine dependence, cigarettes, uncomplicated; D75.1 Secondary polycythemia; F41.0 Panic disorder [episodic paroxysmal anxiety]; Z20.822 Contact with and (suspected) exposure to COVID-19; Z79.51 Long term (current) use of inhaled steroids; Z79.899 Other long term (current) drug therapy; Z99.81 Dependence on supplemental oxygen
CPT/HCPCS: 36415; 71045; 80053; 81001; 83605; 83735; 83880; 84145; 84484; 85025; 85027; 85610; 85730; 87086; 87637; 87641; 93005; 94640; 96365; 96366; 96372; 96374; 96375; 96376; 97161; 97165; 99285; A9270; G0378; J0696; J1650; J2060; J2919; J7512

== ENCOUNTER 2024-11-23 10:17 | Observation (INO) | payer OTHER, SELFPAY ==
[2024-11-23] VITALS (22 sets, daily range): BP systolic 97–122; BP diastolic 52–100; PULSE 72–117; RESP 16–24; TEMP 36.3–36.8; O2SAT 90–96; BMI 32.0
--- NOTE | 2024-11-23 | ECHO_ITS ---
Patient Info Name: Minnie Anguiano Age: 64 years : 1960 Gender: Female Ht: 65 in Wt: 191 lbs BSA: 2.02 m2 HR: 93 bpm BP: 104 / 85 mmHg Heart Rhythm: Sinus Rhythm Technical Quality: Fair Exam Date: 11/23/2024 2:16 PM Patient Status: O Admit Date: 11/23/2024 Exam Type: CA echo dop color flow w con Complete two-dimensional, color flow and Doppler transthoracic echocardiogram is performed with contrast to opacify the left ventricle and to improve the deliniation of the left ventricle endocardial borders. Staff Referring Physician: Crow Lunsford MD Low Altitude Air Defense Gunner: Lyla Simon Attending Provider: Disha Garces Contrast/Agitated Saline Contrast/Ag. Saline: Definity Amount: 2.00 ml Administered By: Lyla Simon Existing IV Access: Yes IV Access Condition: patent with no signs of infiltration Summary 1. Technically difficult study with poorly visualized views. 2. Overall preserved biventricular systolic function. Left Ventricle The left ventricle is normal in size and systolic function. The left ventricular ejection fraction is visually estimated to be 60-65%. Right Ventricle The right ventricle is normal in size and systolic function. Left Atria The left atrium is normal size. Right Atria The right atrium is normal size. Atrial Septum The atrial septum is not well visualized. Aortic Valve The aortic valve is not well visualized. Pulmonic Valve The pulmonic valve is not well visualized. Mitral Valve The mitral valve is not well visualized. Tricuspid Valve The tricuspid valve is not well visualized. Pericardium/Pleural The pericardium is not well visualized. Inferior Vena Cava The IVC is not well visualized. Aorta The aortic root is not well visualized. Left Ventricular Outflow Tract Name Value Normal LVOT 2D LVOT Diameter 2.0 cm LVOT Doppler LVOT Peak Velocity 78 cm/s LVOT Peak Gradient 2 mmHg LVOT Mean Gradient 1 mmHg LVOT VTI 14 cm LVOT VTI/AV VTI Ratio 0.8 LVOT Stroke Volume 47 ml LVOT CO 3.8 l/min LVOT CI 1.9 l/min/m2 Pulmonic Valve Name Value Normal RVOT Doppler RVOT Peak Velocity 67 cm/s RVOT Peak Gradient 2 mmHg PV Doppler PV Peak Velocity 78 cm/s PV Peak Gradient 2 mmHg Mitral Valve Name Value Normal MV Diastolic Function MV E Peak Velocity 43 cm/s MV A Peak Velocity 77 cm/s MV E/A 0.6 MV Decel Time (PW) 154 ms MV Annular TDI MV E/e' (Septal) 9.5 MV E/e' (Lateral) 6.7 MV E/e' (Average) 8.1 Tricuspid Valve Name Value Normal TV Annular TDI TV Lateral Jesusita s' Velocity 8.9 cm/s >=9.5 Aorta Name Value Normal Ascending Aorta Ao Root Diameter (MM) 2.8 cm Ao Root Diam Index (MM) 1.4 cm/m2 Aortic Valve Name Value Normal AV Doppler AV Peak Velocity 102 cm/s AV Peak Gradient 4 mmHg AV Mean Gradient 2 mmHg AV VTI 19 cm AV Area (Cont Eq VTI) 2.5 cm2 >=3.0 AV Area (Cont Eq Tony) 2.5 cm2 AV DI (Tony) 0.77 AV Regurgitation 2D LVOT Area 3.3 cm2 Ventricles Name Value Normal LV Dimensions 2D/MM LVOT Diameter 2.0 cm LV Fractional Shortening/Ejection Fraction 2D/MM LV Diastolic Volume (4C MOD) 44 ml LV EF (4C MOD) 63 % LV Diastolic Volume (2C MOD) 28 ml LV EF (2C MOD) 59 % LV Diastolic Volume (BP MOD) 36 ml 46-106 LV Diastolic Volume Index (BP MOD) 18 ml/m2 29-61 LV Systolic Volume (BP MOD) 14 ml 14-42 LV Systolic Volume Index (BP MOD) 7 ml/m2 8-24 LV EF (BP MOD) 61 % 54-74 LV Diastolic Length (4C) 5.9 cm LV Systolic Length (4C) 5.2 cm LV Stroke Volume (4C MOD) 27 ml Atria Name Value Normal LA Dimensions LA Dimension (MM) 3.9 cm 2.7-3.8 LA Volume (4C A-L) 41 ml LA Volume (BP A-L) 43 ml RA Dimensions Area (4C) 14.3 cm2 <=18.0 Report Signatures
--- NOTE | ~2024-11-23 | XR_ITS ---
Clinical Indication: Palpitations, COPD PA and lateral views of the chest: Comparison: 11/17/2024 Findings: The lungs are clear, without evidence of focal consolidation or pleural effusion. Cardiome diastinal silhouette is within normal limits. Severe T6 compression fracture present. Impression: Clear lungs. T6 compression fracture. Reviewed, dictated and finalized at location . Impression: Clear lungs. T6 compression fracture.
--- NOTE | 2024-11-23 10:18 | ECG_ITS ---
Test Date: 2024-11-23 10:28:49 Measurements Intervals [place] Rate: 97 P: 46 MO: 139 QRS: 85 QRSD: 72 T: 79 QT: 313 QTc: 398 Interpretive Statements SINUS RHYTHM NONSPECIFIC T WAVE ABNORMALITY Compared to ECG 11/17/2024 08:32:16 Sinus tachycardia no longer present Electronically Signed On 11-23-2024 12:00:23 CDT by Moris Garrison M.D.
--- OUTSIDE RECORDS SUMMARY | 2024-11-23 10:38 | XMS_ITS | Clinical Summary ---
Author Organization [facility] Address [address] [place] [address] Care Team Providers Care Retirement Officer Name Role Phone Ethan Cerrato Primary Care Provider + Source Comments [facility],non-owned Affiliates and Associated Physician Practices is amultiple site organization consisting of ambulatory clinics and hospital sitesin [place], [place], [place] and [place]. This disclosure is being madepursuant to the Care Everywhere program and may not contain all information available regarding this patient. 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 HEEL BUILDER Gender Identity Not on file Sexual Orientation Not on file Last Filed Vital Signs Vital Sign Reading Time Taken Comments Blood Pressure 122/80 07/25/2017 10:47 AM MACHINE HEEL BUILDER Pulse 80 07/25/2017 10:47 AM MACHINE HEEL BUILDER Temperature 36.8 C (98.2 F) 07/25/2017 10:47 AM MACHINE HEEL BUILDER Respiratory Rate 20 07/25/2017 10:47 AM MACHINE HEEL BUILDER Oxygen Saturation 94% 07/25/2017 10:47 AM MACHINE HEEL BUILDER Inhaled Oxygen Concentration - - Weight 74.8 kg (165 lb) 07/25/2017 10:47 AM MACHINE HEEL BUILDER Height 160 cm (5' 3 ) 07/25/2017 10:47 AM MACHINE HEEL BUILDER Body Mass Index 29.23 07/25/2017 10:47 AM MACHINE HEEL BUILDER Plan of Treatment Health Maintenance Due Date [...] patient's age to complete this topic Insurance [facility] Care Teams Retirement Officer Relationship Specialty Start Date End Date Ethan Cerrato PA [address] [place] [address] PCP - General Physician Claim Attorney 07/25/17
--- OUTSIDE RECORDS SUMMARY | 2024-11-23 10:38 | XMS_ITS | Referral Summary ---
Author Organization [facility] [address] Address [address] [place] [address] Care Team Providers Care Leaf Stamper Name Role Phone Parish Valdez MD Primary Care Provider [phone] Allergies Active Allergy Reactions Criticality Noted Date [...] Treatment Not on file Insurance Care Teams Leaf Stamper Relationship Specialty Start Date End Date Parish Valdez MD [address] [place] [address] PCP - General Internal Medicine 01/01/24
--- OUTSIDE RECORDS SUMMARY | 2024-11-23 10:38 | XMS_ITS | Clinical Summary ---
Author Organization [facility] [address] Address [address] [place] [address] Care Team Providers Care Slate Splitting Supervisor Name Role Phone Parish Valdez MD Primary Care Provider [phone] Allergies Active Allergy Reactions Criticality Noted Date [...] (2 - Td or Tdap) 11/16/203301/2024 Insurance [facility] Care Teams Slate Splitting Supervisor Relationship Specialty Start Date End Date Parish Valdez MD [address] [place] [address] PCP - General Internal Medicine 01/01/24
--- OUTSIDE RECORDS SUMMARY | 2024-11-23 10:38 | XMS_ITS | CONTINUITY OF CARE DOCUMENT ---
Author Name alvaro john Address Unknown Organization [facility] Address [address] [place] [address] [address] [place] [address] Phone [phone] Care Team Providers Care Family Court Justice Name Role Phone MARGARET GABRIEL MD Unavailable MARGARET GABRIEL MD Unavailable [phone] INSURANCE PROVIDERS Payer name Policy type / Coverage type Swathi red green party [employer] Medicaid 1 [id number]
--- OUTSIDE RECORDS SUMMARY | 2024-11-23 10:38 | XMS_ITS | Data Portability ---
Author Organization [facility] Zhou Address [address] [place] [place] [address] Care Team Providers Care Banking And Finance Instructor Name Role Phone SATINDER VALDEZ Primary Care Provider [phone] Assessment Encounter Date Assessment Date Assessment LastModified [...] me in 3 months cardiology note reviewed. [email or web address] Not available 01/07/2024 22:12:53 02/24/2024 02/24/2024 smoking [...] start it. Also get pulmonary function tests [email or web address] Not available 02/24/2024 21:43:50 04/29/2024 04/29/2024 she [...] COPD flare she would notify the office [email or web address] Not available 04/29/2024 14:50:20 2024 2024 PFTs. [...] Modified Time Details Appointments ANY 2024 10:45A Russell Valdez MD Not available Not available Not available ANY 2024 01:00P Russell Valdez MD Not available Not available Not available Lab CBC w/ auto diff 2024 025 [facility], [address] [place] [address], [place] [address], [place], [address], 10/01/2024 08:24:19 CMP, serum or plasma 2024 025 [facility], [address] [place] [address], [facility] [address], [place], [address], 10/01/2024 08:24:18 lipid panel, serum 2024 025 [facility], [address] [place] [address], [facility] [address], [place], [address], 10/01/2024 08:24:17 Referral None recorde d. Procedures None recorde d. Surgeries None recorde d. Imaging None recorde d. Medication Orders prednis one 20 mg tablet 2023 024 [id number], [address], [place], [place], [id number], 2024 12:19:47 atorvas tatin 40 mg tablet 2023 024 [id number], [address], [place], [place], [id number], 04/29/2024 14:22:21 prednis one 20 mg tablet 2023 024 [facility] #[id number], [address], [place], [place], [id number], 2024 12:19:47 albuter ol sulfate HFA 90 mcg/act uation aerosol inhaler 2022 023 [facility] #[id number], [address], [place], [place], [id number], 05/29/2023 15:36:23 Medrol (Hunter) 4 mg tablets in a dose pack 2022 024 [facility] #[id number], [address], [place], [place], [id number], 2024 12:19:34 Patient TargetsNo targets recorded. Patient Instructions Encounter Date Encounter Id Patient Instructions Last Modified By Organization Details Last Modified Time 05/29/2023 [id number] When You Want to Lose Weight: Care Instructions si Not available 05/29/2023 15:36:05 Quitting Tobacco: Care Instructions [facility] Not available 05/29/2023 15:36:05 high cholesterol: care instructions [facility] Not available 05/29/2023 15:36:05 chronic obstructive pulmonary disease (COPD): care instructions [facility] Not available 05/29/2023 15:36:04 learning about copd and how to prevent lung infections [facility] Not available 05/29/2023 15:36:04 01/07/2024 [id number] Patient Health Questionnaire-9* [email or web address] Not available 01/08/2024 10:42:52 02/24/2024 [id number] Quitting Tobacco: Care Instructions [email or web address] Not available 02/24/2024 21:44:48 sending diane to [facility] for ER note and [facility] for PFT [email or web address] Not available 02/24/2024 17:10:26 Reason for Referral None Reported. Results Created Date Observation Date Name Description Value Unit Range Abnormal Flag Note LastModifiedBy Organization Detail LastModifiedTime 10/01/19 25 10/01/2024 LIPID PANEL cholesterol, total 233 mg/dL 100-19 9 above high normal Not Available [facility] ([facility]) [address] [place], [address], 10/01/2024 08:24:17 10/01/19 25 10/01/2024 LIPID PANEL triglyceride s 200 mg/dL 0-149 above high normal Not Available [facility] ([facility]) [address] [place], [address], 10/01/2024 08:24:17 10/01/19 25 10/01/2024 LIPID PANEL HDL cholesterol 75 mg/dL >39 Not Available [facility]) [address] [place], [address], 10/01/2024 08:24:17 10/01/19 25 10/01/2024 LIPID PANEL VLDL cholesterol mahogany 35 mg/dL 5-40 Not Available [facility] ([facility]) [address] [place], [address], 10/01/2024 08:24:17 10/01/19 25 10/01/2024 LIPID PANEL LDL chol calc ([facility]) 123 mg/dL 0-99 above high normal Not Available [facility] ([facility]) [address] [place], [address], 10/01/2024 08:24:17 10/01/19 25 10/01/2024 COMP. METAB OLIC PANEL (14) glucose 84 mg/dL 70-99 Not Available [facility] ([facility]) [address] [place], [address], 10/01/2024 08:24:18 10/01/19 25 10/01/2024 COMP. METAB OLIC PANEL (14) BUN 12 mg/dL 8-27 Not Available [facility] ([facility]) [address] [place], [address], 10/01/2024 08:24:18 10/01/19 25 10/01/2024 COMP. METAB OLIC PANEL (14) creatinine 1.03 mg/dL 0.57-1 .00 above high normal Not Available [facility] ([facility]) [address] [facility], [place], [address], 10/01/2024 08:24:18 10/01/19 25 10/01/2024 COMP. METAB OLIC PANEL (14) eGFR 61 mL/mi n/1.7 3 >59 Not Available [facility] ([facility]) [address] [facility] [place], [address], 10/01/2024 08:24:18 10/01/19 25 10/01/2024 COMP. METAB OLIC PANEL (14) BUN/creatini ne ratio 12 12-28 Not Available [facility] ([facility]) [address] [facility], [place], [address], 10/01/2024 08:24:18 10/01/19 25 10/01/2024 COMP. METAB OLIC PANEL (14) sodium 141 mmol/ L 134-14 4 Not Available [facility] ([facility]) [address] [facility], [place], [address], 10/01/2024 08:24:18 10/01/19 25 10/01/2024 COMP. METAB OLIC PANEL (14) potassium 4.7 mmol/ L 3.5-5. 2 Not Available [facility] ([facility]) [address] [facility], [place], [address], 10/01/2024 08:24:18 10/01/19 25 10/01/2024 COMP. METAB OLIC PANEL (14) chloride 101 mmol/ L 96-106 Not Available [facility] ([facility]) [address] [facility], [place], [address], 10/01/2024 08:24:18 10/01/19 25 10/01/2024 COMP. METAB OLIC PANEL (14) carbon dioxide, total 22 mmol/ L 20-29 Not Available [facility] ([facility]) [address] [facility], [place], [address], 10/01/2024 08:24:18 10/01/19 25 10/01/2024 COMP. METAB OLIC PANEL (14) calcium 9.6 mg/dL 8.7-10 .3 Not Available [facility] ([facility]) [address] [place], [address], 10/01/2024 08:24:18 10/01/19 25 10/01/2024 COMP. METAB OLIC PANEL (14) protein, total 6.4 g/dL 6.0-8. 5 Not Available [facility] ([facility]) [address] [facility], [place], [address], 10/01/2024 08:24:18 10/01/19 25 10/01/2024 COMP. METAB OLIC PANEL (14) albumin 4.3 g/dL 3.9-4. 9 Not Available [facility] ([facility]) [address] [place], [address], 10/01/2024 08:24:18 10/01/19 25 10/01/2024 COMP. METAB OLIC PANEL (14) globulin, total 2.1 g/dL 1.5-4. 5 Not Available [facility] ([facility]) [address] [place], [address], 10/01/2024 08:24:18 10/01/19 25 10/01/2024 COMP. METAB OLIC PANEL (14) bilirubin, total 0.4 mg/dL 0.0-1. 2 Not Available [facility] ([facility]) [address] [place], [address], 10/01/2024 08:24:18 10/01/19 25 10/01/2024 COMP. METAB OLIC PANEL (14) alkaline phosphatase 90 IU/L 44-121 Not Available [facility] ([facility]) [address] [facility], [place], [address], 10/01/2024 08:24:18 10/01/19 25 10/01/2024 COMP. METAB OLIC PANEL (14) AST (SGOT) 17 IU/L 0-40 Not Available [facility] ([facility]) [address] [facility], [place], [address], 10/01/2024 08:24:18 10/01/19 25 10/01/2024 COMP. METAB OLIC PANEL (14) ALT (SGPT) 20 IU/L 0-32 Not Available [facility] ([facility]) [address] [facility], [place], [address], 10/01/2024 08:24:18 10/01/19 25 10/01/2024 CBC WITH DIFFE RENTI AL/PL ATELE T WBC 9.3 x10e3 /uL 3.4-10 .8 Not Available [facility] ([facility]) [address] [place], [address], 10/01/2024 08:24:19 10/01/19 25 10/01/2024 CBC WITH DIFFE RENTI AL/PL ATELE T RBC 5.33 x10e6 /uL 3.77-5 .28 above high normal Not Available [facility] ([facility]) [address] [facility], [place], [address], 10/01/2024 08:24:19 10/01/19 25 10/01/2024 CBC WITH DIFFE RENTI AL/PL ATELE T hemoglobin 17.6 g/dL 11.1-1 5.9 above high normal Not Available [facility] ([facility]) [address] [place], [address], 10/01/2024 08:24:19 10/01/19 25 10/01/2024 CBC WITH DIFFE RENTI AL/PL ATELE T hematocrit 53.6 % 34.0-4 6.6 above high normal Not Available [facility] ([facility]) [address] [place], [address], 10/01/2024 08:24:19 10/01/19 25 10/01/2024 CBC WITH DIFFE RENTI AL/PL ATELE T MCV 101 fL 79-97 above high normal Not Available [facility] ([facility]) [address] [place], [address], 10/01/2024 08:24:19 10/01/19 25 10/01/2024 CBC WITH DIFFE RENTI AL/PL ATELE T MCH 33.0 pg 26.6-3 3.0 Not Available [facility] ([facility]) [address] [place], [address], 10/01/2024 08:24:19 10/01/19 25 10/01/2024 CBC WITH DIFFE RENTI AL/PL ATELE T MCHC 32.8 g/dL 31.5-3 5.7 Not Available [facility] ([facility]) [address] [place], [address], 10/01/2024 08:24:19 10/01/19 25 10/01/2024 CBC WITH DIFFE RENTI AL/PL ATELE T RDW 13.8 % 11.7-1 5.4 Not Available [facility] ([facility]) [address] [place], [address], 10/01/2024 08:24:19 10/01/19 25 10/01/2024 CBC WITH DIFFE RENTI AL/PL ATELE T platelets 263 x10e3 /uL 150-45 0 Not Available [facility] ([facility]) [address] [place], [address], 10/01/2024 08:24:19 10/01/19 25 10/01/2024 CBC WITH DIFFE RENTI AL/PL ATELE T neutrophils 59 % notest ab. Not Available [facility] ([facility]) [address] [facility], [place], [address], 10/01/2024 08:24:19 10/01/19 25 10/01/2024 CBC WITH DIFFE RENTI AL/PL ATELE T lymphs 29 % notest ab. Not Available [facility] ([facility]) [address] [facility], [place], [address], 10/01/2024 08:24:19 10/01/19 25 10/01/2024 CBC WITH DIFFE RENTI AL/PL ATELE T monocytes 8 % notest ab. Not Available [facility] ([facility]) [address] [facility], [place], [address], 10/01/2024 08:24:19 10/01/19 25 10/01/2024 CBC WITH DIFFE RENTI AL/PL ATELE T eos 2 % notest ab. Not Available [facility] ([facility]) [address] [facility], [place], [address], 10/01/2024 08:24:19 10/01/19 25 10/01/2024 CBC WITH DIFFE RENTI AL/PL ATELE T basos 1 % notest ab. Not Available [facility] ([facility]) [address] [facility], [place], [address], 10/01/2024 08:24:19 10/01/19 25 10/01/2024 CBC WITH DIFFE RENTI AL/PL ATELE T neutrophils (absolute) 5.6 x10e3 /uL 1.4-7. 0 Not Available [facility] ([facility]) [address] [facility], [place], [address], 10/01/2024 08:24:19 10/01/19 25 10/01/2024 CBC WITH DIFFE RENTI AL/PL ATELE T lymphs (absolute) 2.7 x10e3 /uL 0.7-3. 1 Not Available [facility] ([facility]) [address] [facility], [place], [address], 10/01/2024 08:24:19 10/01/19 25 10/01/2024 CBC WITH DIFFE RENTI AL/PL ATELE T monocytes(ab solute) 0.7 x10e3 /uL 0.1-0. 9 Not Available [facility] ([facility]) [address] [facility], [place], [address], 10/01/2024 08:24:19 10/01/19 25 10/01/2024 CBC WITH DIFFE RENTI AL/PL ATELE T eos (absolute) 0.2 x10e3 /uL 0.0-0. 4 Not Available [facility] ([facility]) [address] [facility], [place], [address], 10/01/2024 08:24:19 10/01/19 25 10/01/2024 CBC WITH DIFFE RENTI AL/PL ATELE T baso (absolute) 0.1 x10e3 /uL 0.0-0. 2 Not Available [facility] ([facility]) [address] [facility], [place], [address], 10/01/2024 08:24:19 10/01/19 25 10/01/2024 CBC WITH DIFFE RENTI AL/PL ATELE T immature granulocytes 1 % notest ab. Not Available [facility] ([facility]) [address] [facility], [place], [address], 10/01/2024 08:24:19 10/01/19 25 10/01/2024 CBC WITH DIFFE RENTI AL/PL ATELE T immature grans (abs) 0.1 x10e3 /uL 0.0-0. 1 Not Available [facility] ([facility]) [address] [facility], [place], [address], 10/01/2024 08:24:19 02/25/20 24 03/09/2019 PFT, compl ete No observ ation record ed. [address], [place], [address], 02/27/2024 21:30:57 11/11/19 25 11/10/2024 XR, chest No observ ation record ed. [address], [place], [address], 11/11/2024 09:12:50 11/11/19 25 11/10/2024 CT, chest , w/o contr ast No observ ation record ed. [place] [id number] [facility] [address], [place], [address], 11/22/2024 22:38:13 11/18/19 25 11/17/2024 XR, chest No observ ation record ed. [place] [id number] [facility] [address], [place], [address], 11/18/2024 10:16:53 Result Notes None recorded. Problems Name Problem SNOMED Code Status Onset Date Resolution Date Notes Provider Name and Address Organization Details Recorded Time Low back pain 432719811 Active 2020 Not Available [facility] 3 17:06:31 At increased risk of nutritiona l deficit 482863775 Active 2021 Not Available [facility] 3 17:06:31 HIV screening Active 2021 Not Available [facility] 3 17:06:31 Chronic hypoxemic respirator y failure 523239658 Active 2023 Satinder Valdez MD Attn: Accounting ,[address] [facility], [place], [address] , [place] - [facility] 4 22:10:22 HIV screening declined 9468701670609 00 Active 2023 Satinder Valdez MD Attn: Accounting ,[address] [facility], [place], [address] , [place] [facility] 4 14:50:08 Mammogram declined 032754764 Active 2023 Satinder Valdez MD Attn: Accounting ,[address] [facility], [place], [address] , [place] [facility] 4 14:50:09 Colonoscop y declined 9661992567715 00 Active 2023 Satinder Valdez MD Attn: Accounting ,[address] [facility], [place], [address] , [place] - [facility] 4 14:50:10 Influenza vaccinatio n declined 440321673 Active 2023 Satinder Valdez MD Attn: Accounting ,[address] [facility], [place], [address] , [place] - [facility] 4 14:50:12 SARS-CoV-2 vaccinatio n declined 0867303716 Active 2023 Satinder Valdez MD Attn: Accounting ,[address] [facility], [place], [place], [address] [place] [address] , [place] - [facility] 4 14:50:13 Lung cancer screening declined 0551785717448 9105 Active 2023 Satinder Valdez MD Attn: Accounting ,[address] [facility], [place], [address] , [place] - [facility] 4 14:50:14 Chronic obstructiv e pulmonary disease 95288822 Active Not Available [facility] 3 17:06:31 Gastroesop hageal reflux disease 230928210 Active Not Available [facility] 3 17:06:31 Tobacco user 222375421 Active Not Available [facility] 3 17:06:31 Obesity 496805083 Active Not Available [facility] 3 17:06:31 Hyperlipid emia 69524913 Active Not Available [facility] 3 17:06:31 Depressive disorder 63337592 Active 2016 Not Available [facility] 3 17:06:31 Bronchitis 24878967 Active 2016 Not Available [facility] 3 17:06:31 Notes:Some problems listed i n Document: #[id number] could not be added to this patient's chart. Please review this document and add these problems to the patient's chart manually as needed. Problem Notes None recorded. Procedures Surgical History Date Name Laterality Status Provider Name and Address Organization Details Recorded Time Caesarean Section completed Jacki Gipson MA [facility] 11/16/2014 14:25:00 Cholecystectomy completed Jacki Gipson MA [facility] 11/16/2014 14:25:00 Imaging Results Imaging Date Name Status LastModified by Organiz ation Details LastModified Time 03/09/2019 PFT, complete completed [address] [place], [address], 02/27/2024 21:30:57 11/10/2024 XR, chest completed [address], [address], 11/11/2024 09:12:50 11/10/2024 CT, chest, w/o contrast completed [address], [address], 11/22/2024 22:38:13 11/17/2024 XR, chest completed [address], [address], 11/18/2024 10:16:53 Procedure Notes None recorded. Medical Equipment None Reported. Allergies Allergen ID Allergen Name Allergen Category Reaction Reaction Severity Criticality Documentation Date Start Date Code Code System Note Provider Name and Address Organization Details Recorded Time 624736 codeine medicatio n itching moderate Not available 2024 2670 RxNorm Wendy Reaves MA null, [facility] 12:17:26 Medications Name Sig Start Date Stop [...] Updated DateTime 3 158.75 cm 32 kg/m2 99278.4 4 g 115 /min 96 % 96 [...] Updated DateTime 4 158.75 cm 31.8 kg/m2 93197.4 1 g 97 % 97 % 97.8 [degF] 94 /min 140 mm[Hg] 90 mm[Hg] Shaina Wise [place] - [facility] 4 15:25:13 Date Recorded Body height Body mass index (BMI) Body weight Heart rate Oxygen saturation Oxygen saturation in Arterial blood by Pulse oximetry Systolic blood pressure Diastolic blood pressure Provider Name and Address Organization Details Last Updated DateTime 4 158.75 cm 31.1 kg/m2 93189.0 4 g 96 /min 98 % 98 % 120 mm[Hg] 66 mm[Hg] Judy Tafoya MA [place] - [facility] 4 16:17:17 Date Recorded Body height Body mass index (BMI) Body weight Oxygen saturation Oxygen saturation in Arterial blood by Pulse oximetry Heart rate Systolic blood pressure Diastolic blood pressure Provider Name and Address Organization Details Last Updated DateTime 4 158.75 cm 32.8 kg/m2 79173.8 9 g 98 % 98 % 90 /min 124 mm[Hg] 72 mm[Hg] Wendy Ritchie MA [facility] 4 12:38:08 Date Recorded Body height Body mass index (BMI) Body weight Heart rate Oxygen saturation Oxygen saturation in Arterial blood by Pulse oximetry Systolic blood pressure Diastolic blood pressure Provider Name and Address Organization Details Last Updated DateTime 5 158.75 cm 34.3 kg/m2 91785.7 1 g 107 /min 93 % 93 % 138 mm[Hg] 76 mm[Hg] Wendy Reaves MA [facility] 5 12:23:06 Social History Question Answer Notes LastModified by Organizat ion Details LastModified Time Tobacco Smoking Status Current Every Day Smoker Jacki Gipson MA [facility] 11/16/2014 14:25:00 Do You Have An Advance Directive? No Information not available 11/16/2014 Are You Blind Or [id number]|2024-11-23 15:53:32|2024-11-23 15:53:32|IVDEFINITY||||"Prior to administration of IV Definity the patient was educated on the risks and benefits of the imaging enhancing agent including potential adverse side effects. The patient verbalized understanding. Allergies were verified. No exclusion criteria were identified and at least one of the following inclusion criteria were met: 1) physician request, 2) patient technically difficult to image (per the [place] [employer] Echocardi[employer] guidelines of two or more segments not discernable within the apical view), or 3) questionable left ventricular function. "
--- OUTSIDE RECORDS SUMMARY | 2024-11-23 10:50 | XMS_ITS | CONTINUITY OF CARE DOCUMENT ---
Author Name alvaro john Address Unknown Organization [facility] Address [address] [place] [address] [address] [place] [address] Phone [phone] Care Team Providers Care Teaching Associate Name Role Phone MARGARET GABRIEL MD Unavailable [phone] MARGARET GABRIEL MD Unavailable [phone] INSURANCE PROVIDERS Payer name Policy type / Coverage type [employer] Medicaid 1 [id number]
[2024-11-23 10:55] LABS: Basophils Percent Auto 0.1 % (0.2-1.2); Eosinophils Absolute Auto 0.1 K/mm3 (0-0.3); Eosinophils Percent Auto 0.5 % (0-4.4); Hematocrit 50.7 % (37.0-47.0); Hemoglobin 16.3 g/dL (12.0-15.0); Immature Granulocyte Absolute 0.14 K/mm3 (0.00-0.031); Lymphocytes Absolute Auto 1.03 K/mm3 (0.9-3.2); Lymphocytes Percent Auto 7.5 % (18.3-44.2); Mean Corpuscular HGB Conc 32.1 g/dl (32-36); Mean Corpuscular Volume 99.6 fl (80-100); Mean Platelet Volume 10.2 fl (7.4-10.4); Monocytes Absolute Auto 0.5 K/mm3 (0.1-0.6); Monocytes Percent Auto 3.7 % (2.6-8.5); Neutrophils Percent Auto 87.2 % (45.5-73.1); Platelet Count Result 235 k/mm3 (150-375); Red Blood Count 5.09 M/mm3 (4.2-5.4); Red Cell Distribution Width 13.6 % (11.5-14.5); White Blood Count 13.8 K/mm3 (4.5-10.0)
[2024-11-23 11:09] LABS: Alanine Aminotransferase 52 U/L (6-35); Albumin Level 4.1 g/dL (3.5-5.1); Alkaline Phosphatase 51 U/L (38-126); Anion Gap 7 mmol/L (4-12); Aspartate Amino Transferase 42 U/L (14-36); Bilirubin,Total 0.5 mg/dL (0.2-1.3); Blood Urea Nitrogen 20 mg/dL (7-17); Carbon Dioxide 28 mmol/L (22-30); Chloride 104 mmol/L (98-107); Estimated CRCL calculation 62 ml/min; Estimated Glomerular Filt Rate > 60; Glucose 118 mg/dL (65-110); Lipase 51 U/L (23-300); Potassium 3.9 mmol/L (3.4-5.0); Sodium 139 mmol/L (137-145)
--- NOTE | 2024-11-23 11:14 | PC.NURSE ---
ambulation test: patient heart rate didn't get any higher than 125. patient denies chest pain while walking. slight sob but recovered as soon as she sat down.
[2024-11-23 11:24] LABS: Troponin I 0.142 ng/mL (0.000-0.034)
[2024-11-23 12:01] LABS: INR 0.9; Partial Thromboplastin Time 22.5 Seconds (22.3-36.8); Prothrombin Time 12.6 Seconds (11.1-14.7)
[2024-11-23] MEDS: ASPIRIN 81 MG CHEWABLE TABLET 324 MG PO (12:04)
[2024-11-23] MEDS: HEPARIN SOD/D5W 100 UNITS/ML 25,000 UNITS/250 ML BAG 8 UNITS IV CONT (12:05)
[2024-11-23] MEDS: HEPARIN SODIUM 5,000 UNITS/ML VIAL 4000 UNITS IV PUSH ×2 (12:05→20:23)
--- NOTE | 2024-11-23 12:06 | ED_ITS ---
HPI - General Adult General Chief complaint: Arrhythmia/Palpitations Stated complaint: my heart rate is going up and down Time Seen by Provider: 11/23/24 10:25 History of Present Illness HPI narrative: Patient is a 64-year-old female who presents emergency department with chief complaint of palpitations. Patient reports that she has been in out of the hospital recently and last night she had an episode where her heart rate was up in the 160s to 170s the patient states that worse whenever she ambulates reportedly not having any chest pain patient reports symptoms are improved whenever she is resting Related Data Home Medications Medication Instructions Recorded Confirmed Last Taken Type albuterol sulfate 90 mcg/actuation 2 puff inhalation TID PRN 10/26/23 11/17/24 11/09/24 History aerosol inhaler Shortness Of Breath Or Wheezing fluticasone propionate 115 2 puff inhalation BID 10/26/23 11/17/24 11/09/24 History mcg-salmeterol 21 mcg/actuation HFA inhaler (Advair HFA) umeclidinium 62.5 mcg/actuation 1 inh inhalation DAILY 10/26/23 11/17/24 11/17/24 History blister powder for inhalation (Incruse Ellipta) ipratropium 0.5 mg-albuterol 3 mg 3 ml inhalation Q6HRT PRN 11/17/24 11/17/24 Unknown History (2.5 mg base)/3 mL nebulization shortness of breath soln Allergies Allergy/AdvReac Type Severity Reaction Status Date / Time codeine AdvReac Itching Verified 11/23/24 10:50 Review of Systems 2 Review of Systems: A 10 system review of systems was completed on the patient and is negative except for what is stated in the HPI. Nursing and ancillary documentation was reviewed. [facility] Past Medical History Medical History Tobacco abuse Chronic obstructive pulmonary disease Coronary artery disease (10/2023) Nuclear stress test showed a large, severe non reversible infarcts including multiple meyers of the apex and mid anterior and mid posterior segments consistent with infarct with no reversible ischemia. Surgical History Surgical History History of section Family History Family History Mother Cerebrovascular accident Sibling FH: CABG (coronary artery bypass surgery) Father Stented coronary artery Social History Social History Social History: Surrogate medical decision maker: Meghan Babcock, daughter. Code status: Full code. Smoking packs per day: 1 Smoking cigarettes per day: 20.0 Years smoked: 48 Smoking pack-years: 48.00 Smoking status: Current every day smoker Tobacco type: cigarettes Second hand tobacco smoke exposure: Yes Alcohol intake: current Drinks per week: 14 Substance use: never Substance use type: does not use Do You Feel Safe in your Home?: Yes Lack of Transportation: No Lack of Food: Never True Current Housing: I Have Housing Concerned About Future Housing: No Difficulty Paying Gas/Electric Bills: No Difficulty Paying for Meds: No Currently Unemployed: No Education: High School Diploma/GED Difficulty w/ Childcare or Family Care: No Living arrangements: with family Spiritual care concerns: No Exam 2 Narrative: GENERAL: Well-appearing, well-nourished, and in no acute distress. HEAD: Normocephalic, atraumatic. EYES: PERRLA and EOMI. ENT: Nares clear, no rhinorrhea or epistaxis. Mucous membranes moist. NECK: Supple. CHEST: Clear to auscultation. No respiratory distress. HEART: Regular rate and rhythm. No murmur heard. Normal peripheral pulses. ABDOMEN: Soft, nontender, nondistended, normal active bowel sounds. EXTREMITIES: Normal range of motion. No edema. SKIN: Warm, dry, no rash. NEURO: No focal deficits. Alert and oriented x3. PSYCH: Normal mood and affect. Course Vital Signs Vital signs: Vital Signs Temperature 36.3 C L 11/23/24 10:47 Pulse Rate 95 11/23/24 10:47 Respiratory Rate 24 H 11/23/24 10:47 Blood Pressure 120/100 H 11/23/24 10:47 Pulse Oximetry 94 11/23/24 10:47 Oxygen Delivery Room Air 11/23/24 10:47 Temperature 36.3 C L 11/23/24 10:47 Pulse Rate 95 11/23/24 10:47 Respiratory Rate 24 H 11/23/24 10:47 Blood Pressure 120/100 H 11/23/24 10:47 Pulse Oximetry 94 11/23/24 10:47 Oxygen Delivery Room Air 11/23/24 10:47 Medical Decision Making [facility] Narrative Medical decision making narrative: Differential diagnosis includes ACS, dysrhythmia, COPD exacerbation, EKG showed no acute ischemic changes Initial troponin was slightly elevated at 0.142 The patient given aspirin was started on a heparin drip the case was discussed with the hospitalist for admission Vital Signs Vital Signs: Vital Signs Temperature 36.3 C L 11/23/24 10:47 Pulse Rate 95 11/23/24 10:47 Respiratory Rate 24 H 11/23/24 10:47 Blood Pressure 120/100 H 11/23/24 10:47 Pulse Oximetry 94 11/23/24 10:47 Oxygen Delivery Room Air 11/23/24 10:47 Temperature 36.3 C L 11/23/24 10:47 Pulse Rate 95 11/23/24 10:47 Respiratory Rate 24 H 11/23/24 10:47 Blood Pressure 120/100 H 11/23/24 10:47 Pulse Oximetry 94 11/23/24 10:47 Oxygen Delivery Room Air 11/23/24 10:47 Lab Data 11/23/24 10:45 11/23/24 10:45 Labs: Lab Results 11/23/24 Range/Units 10:45 WBC 13.8 H (4.5-10.0) K/mm3 RBC 5.09 (4.2-5.4) M/mm3 Hgb 16.3 H (12.0-15.0) g/dL Hct 50.7 H (37.0-47.0) % MCV 99.6 (80-100) fl MCH 32.0 (26-34) pg MCHC 32.1 (32-36) g/dl RDW 13.6 (11.5-14.5) % Plt Count 235 (150-375) k/mm3 MPV 10.2 (7.4-10.4) fl Immature Gran % (Auto) 1.0 H (0-0.5) % Neut % (Auto) 87.2 H (45.5-73.1) % Lymph % (Auto) 7.5 L (18.3-44.2) % Ware % (Auto) 3.7 (2.6-8.5) % Eos % (Auto) 0.5 (0-4.4) % Baso % (Auto) 0.1 L (0.2-1.2) % Lymph # (Auto) 1.03 (0.9-3.2) K/mm3 Ware # (Auto) 0.5 (0.1-0.6) K/mm3 Eos # (Auto) 0.1 (0-0.3) K/mm3 Baso # (Auto) 0.0 (0.0-0.1) K/mm3 Abs Immat Gran (auto) 0.14 H (0.00-0.031) K/mm3 Absolute Neuts (auto) 12.0 H (1.3-6.7) K/mm3 Absolute Nucleated RBC 0.000 (0.0-0.012) K/mm3 Nucleated RBC % 0.0 (0.0-0.2) % PT 12.6 (11.1-14.7) Seconds INR 0.9 APTT 22.5 (22.3-36.8) Seconds Sodium 139 (137-145) mmol/L Potassium 3.9 (3.4-5.0) mmol/L Chloride 104 (98-107) mmol/L Carbon Dioxide 28 (22-30) mmol/L Anion Gap 7 (4-12) mmol/L BUN 20 H (7-17) mg/dL Creatinine 0.88 (0.7-1.0) mg/dL Estim Creat Clear Calc 62 ml/min Estimated GFR > 60 (59 - ) Glucose 118 H (65-110) mg/dL Calcium 9.0 (8.4-10.2) mg/dL Magnesium Pending Total Bilirubin 0.5 (0.2-1.3) mg/dL AST 42 H (14-36) U/L ALT 52 H (6-35) U/L Alkaline Phosphatase 51 (38-126) U/L Troponin I 0.142 H* (0.000-0.034) ng/mL Total Protein 7.0 (6.3-8.2) g/dL Albumin 4.1 (3.5-5.1) g/dL Lipase 51 (23-300) U/L Critical Care Time Critical Care Time Critical Care Time: Yes Total Critical Care Time: 35 Discharge Plan Discharge Clinical Impression: Palpitations, Non-STEMI (non-ST elevated myocardial infarction) Patient Disposition: Still a Patient Condition: Stable Patient Language: Greek Prescriptions: No Action albuterol sulfate 90 mcg/actuation HFA aerosol inhaler 2 puff INHALATION TID PRN (Reason: Shortness Of Breath Or Wheezing) fluticasone propion-salmeterol [Advair HFA] 115-21 mcg/actuation HFA aerosol inhaler 2 puff INHALATION BID Incruse Ellipta 62.5 mcg/actuation blister with device 1 inh INHALATION DAILY nitroglycerin [Nitrostat] 0.4 mg Tablet, Sublingual 0.4 mg sublingual Q5MIN PRN (Reason: Chest Pain) Qty: 10 0RF Patient Comments: has not had to admin buspirone 10 mg Tablet 10 mg PO Q12HR Qty: 60 0RF metoprolol succinate [Toprol XL] 25 mg Tablet Extended Release 24 Hr 25 mg PO QAM Qty: 30 0RF ipratropium-albuterol 0.5 mg-3 mg(2.5 mg base)/3 mL Solution For Nebulization 3 ml inhalation Q6HRT PRN (Reason: shortness of breath) levofloxacin 750 mg tablet 750 mg PO DAILY Qty: 5 0RF Rx Instructions: Please complete the course for 5 days prednisone 20 mg tablet 40 mg PO DAILY Qty: 10 0RF Rx Instructions: Please take 40mg PO x 5 days Follow-up/Referrals: Alivia,MD Parish [Primary Care Provider] - Time of Disposition: 12:08
[2024-11-23 12:09] LABS: Magnesium 2.2 mg/dL (1.6-2.3)
--- NOTE | 2024-11-23 12:51 | PM.CNCAR ---
Assessment and Plan Assessment and plan (1) CAD (coronary artery disease): Code(s): I25.10 - Atherosclerotic heart disease of alutiiq coronary artery without angina pectoris Status: Acute (2) Palpitations: Code(s): R00.2 - Palpitations Status: Acute (3) Elevated troponin: Code(s): R79.89 - Other specified abnormal findings of blood chemistry Status: Acute Plan Problem list: Palpitations-tele shows sinus tachycardia, EKG shows sinus rhythm with rate of 92, nonspecific T-wave inversions Elevated troponin without chest pain most likely secondary to stress of tachycardia Nonobstructive CAD by catheterization in January, COPD Tobacco use Plan: Increase p.o. Metoprolol to 25 mg p.o. b.i.d. Trend troponin to peak EKG p.r.n. for any chest pain Check lipid panel TTE Check TSH, free T4 Check BNP Correct any reversible causes of tachycardia including dehydration, any infection, COPD, or other Check and replace electrolytes to keep K greater than 4 and Mg greater than 2 30 day event monitor at discharge Sleep study to evaluate for obstructive sleep apnea History of Present Illness History of Present Illness Consult date/time: 11/23/24 12:51 Reason For Visit: NSTEMI, palpitations Narrative: 64-year-old female with history of CAD (cardiac catheterization in December of 2023 which showed nonobstructive CAD with 20-30% stenosis of ostial LAD), COPD, tobacco use, anxiety, recent hospitalization at [facility] from 11/10/2024 to 11/20/2024 for COPD exacerbation and pneumonia presents with chief complaints of palpitations that started around 5 a.m. today. In the ER she was noted to have sinus tachycardia with heart rates in the 160s to 170 but now slowed down with heart rates in the 90s. She was noted to have an elevated troponin of 0.142. EKG showed sinus rhythm with nonspecific T-wave abnormality. Cardiology is consulted for further recommendations given tachycardia with elevated troponin. Patient states she has anxiety. When she has anxiety she has cramps in the middle of her chest, palpitations, and her heart rate is very high during these episodes. She states that she recently had a hospital admission for pneumonia and COPD exacerbation at which time she also had tachycardia with rapid heart rates. She does not recollect having palpitations are tachycardia with exertion. She denies exertional chest pain or chest pain at rest, shortness of breath, dizziness, lightheadedness, leg swelling, recent weight gain, orthopnea, PND. She can go up and down a flight of stairs without having to stop. Workup: WBC: 13.8 Hemoglobin: 60.3 Creatinine: 0.88 Troponin: 0.142 EKG: Sinus rhythm with rate of 92, nonspecific T-wave abnormality Chest x-ray: T6 compression fracture, clear lungs Prior workup: TTE in 2023: LVEF 50-55%; akinetic apex, mid anterior, mid inferoseptal, mid anterolateral, mid anteroseptal meyers hypokinetic; grade 1 diastolic dysfunction; mild MR and mild TR; mild pulmonary hypertension with PASP of 35 mm Hg Stress test in 2023: large severe nonreversible infarct involving the apical, each of the periapical and the mid anterior and mid inferior segments. No reversible ischemia. Cardiac catheterization in December,: Nonobstructive CAD with 20-30% stenosis of ostial LAD, LM, LCX and RCA without any significant angiographic disease Review of Systems Review of Systems: A complete review of systems was performed and negative other than those mentioned in [facility] Past Medical History Medical History Tobacco abuse Chronic obstructive pulmonary disease Coronary artery disease (10/2023) Nuclear stress test showed a large, severe non reversible infarcts including multiple meyers of the apex and mid anterior and mid posterior segments consistent with infarct with no reversible ischemia. Surgical History Surgical History History of section Family History Family History Mother Cerebrovascular accident Sibling FH: CABG (coronary artery bypass surgery) Father Stented coronary artery Social History Social History Social History: Surrogate medical decision maker: Meghan Babcock, daughter. Code status: Full code. Smoking packs per day: 1 Smoking cigarettes per day: 20.0 Years smoked: 48 Smoking pack-years: 48.00 Smoking status: Current every day smoker Tobacco type: cigarettes Second hand tobacco smoke exposure: Yes Alcohol intake: current Drinks per week: 14 Substance use: never Substance use type: does not use Do You Feel Safe in your Home?: Yes Lack of Transportation: No Lack of Food: Never True Current Housing: I Have Housing Concerned About Future Housing: No Difficulty Paying Gas/Electric Bills: No Difficulty Paying for Meds: No Currently Unemployed: No Education: High School Diploma/GED Difficulty w/ Childcare or Family Care: No Living arrangements: with family Spiritual care concerns: Yes Meds Home Medications and Allergies Home Medications Medication Instructions Recorded Confirmed Type albuterol sulfate 90 mcg/actuation 2 puff inhalation TID PRN 10/26/23 11/23/24 History aerosol inhaler Shortness Of Breath Or Wheezing fluticasone propionate 115 2 puff inhalation BID 10/26/23 11/23/24 History mcg-salmeterol 21 mcg/actuation HFA inhaler (Advair HFA) umeclidinium 62.5 mcg/actuation 1 inh inhalation DAILY 10/26/23 11/23/24 History blister powder for inhalation (Incruse Ellipta) nitroglycerin 0.4 mg sublingual 0.4 mg sublingual Q5MIN PRN Chest 10/28/23 11/23/24 Rx tablet (Nitrostat) Pain #10 tabs buspirone 10 mg tablet 10 mg PO Q12HR #60 tabs 11/11/24 11/23/24 Rx metoprolol succinate 25 mg 25 mg PO QAM #30 tabs 11/11/24 11/23/24 Rx tablet,extended release 24 hr (Toprol XL) ipratropium 0.5 mg-albuterol 3 mg 3 ml inhalation Q6HRT PRN 11/17/24 11/23/24 History (2.5 mg base)/3 mL nebulization shortness of breath soln levofloxacin 750 mg tablet 750 mg PO DAILY #5 tabs 11/20/24 11/23/24 Rx prednisone 20 mg tablet 40 mg (2 x 20 mg) PO DAILY #10 tabs 11/20/24 11/23/24 Rx Allergies Allergy/AdvReac Type Severity Reaction Status Date / Time codeine AdvReac Itching Verified 11/23/24 10:50 Vital Signs Vital Signs - 24 hr 11/23/24 10:28 11/23/24 10:30 11/23/24 10:31 Temperature Pulse Rate 98 103 H 117 H Respiratory Rate 21 H 22 H 23 H Blood Pressure 122/77 114/93 H Pulse Oximetry 95 95 Oxygen Delivery 11/23/24 10:32 11/23/24 10:45 11/23/24 10:46 Temperature Pulse Rate 106 H 102 H 97 Respiratory Rate 24 H 16 16 Blood Pressure 120/100 H Pulse Oximetry 95 90 94 Oxygen Delivery 11/23/24 10:47 11/23/24 11:00 11/23/24 11:01 Temperature 36.3 C L Pulse Rate 95 92 92 Respiratory Rate 24 H 20 17 Blood Pressure 120/100 H 113/96 H Pulse Oximetry 94 94 96 Oxygen Delivery Room Air 11/23/24 11:15 11/23/24 11:30 11/23/24 12:20 Temperature Pulse Rate 96 87 95 Respiratory Rate 17 20 23 H Blood Pressure 103/76 Pulse Oximetry 91 92 94 Oxygen Delivery Exam Narrative: General: Alert oriented x3, no acute distress Neck: Supple, no JVD Chest: Bilaterally clear to auscultation, no rales or rhonchi Cardiac: S1, S2 +, regular rate, regular rhythm, no murmurs or rubs Extremities: No pedal edema, no skin rash Neurologic: Alert and oriented x3, no focal neurological deficits Results Labs and Meds 11/23/24 10:45 11/23/24 10:45 Lab results: Cardiac Enzymes 11/23/24 Range/Units 10:45 AST 42 H (14-36) U/L Troponin I 0.142 H* (0.000-0.034) ng/mL Coagulation 11/23/24 Range/Units 10:45 PT 12.6 (11.1-14.7) Seconds APTT 22.5 (22.3-36.8) Seconds CBC 11/23/24 Range/Units 10:45 WBC 13.8 H (4.5-10.0) K/mm3 RBC 5.09 (4.2-5.4) M/mm3 Hgb 16.3 H (12.0-15.0) g/dL Hct 50.7 H (37.0-47.0) % Plt Count 235 (150-375) k/mm3 Lymph # (Auto) 1.03 (0.9-3.2) K/mm3 Jackson # (Auto) 0.5 (0.1-0.6) K/mm3 Eos # (Auto) 0.1 (0-0.3) K/mm3 Baso # (Auto) 0.0 (0.0-0.1) K/mm3 Comprehensive Metabolic Panel 11/23/24 Range/Units 10:45 Sodium 139 (137-145) mmol/L Potassium 3.9 (3.4-5.0) mmol/L Chloride 104 (98-107) mmol/L Carbon Dioxide 28 (22-30) mmol/L BUN 20 H (7-17) mg/dL Creatinine 0.88 (0.7-1.0) mg/dL Glucose 118 H (65-110) mg/dL Calcium 9.0 (8.4-10.2) mg/dL AST 42 H (14-36) U/L ALT 52 H (6-35) U/L Alkaline Phosphatase 51 (38-126) U/L Total Protein 7.0 (6.3-8.2) g/dL Albumin 4.1 (3.5-5.1) g/dL Patient Weight 11/23/24 23:59 Weight 86.9 kg
[2024-11-23] MEDS: LORazepam INJ (*CRX) 2 MG/ML VIAL 0.5 MG IV PUSH ×2 (12:53→13:08)
--- NOTE | 2024-11-23 13:08 | P.HP_ITS ---
H&P: HPI History of Present Illness Date/Time: 11/23/24 13:08 Narrative: The patient is a 64-year-old female who presents emergency department with chief complaint of palpitations. Patient reports that she has been in out of the hospital recently and last night she had an episode where her heart rate was up in the 160s to 170s the patient states that worse whenever she ambulates reportedly not having any chest pain patient reports symptoms are improved when ever she is resting. Labs notable for elevated troponin. Cardiology was consulted in the ED. Tele showed NSR. Problem list: Palpitations-tele shows sinus tachycardia, EKG shows sinus rhythm with rate of 92, nonspecific T-wave inversions Elevated troponin without chest pain most likely secondary to stress of tachycardia COPD Tobacco use Plan: Start Metoprolol 25 mg p.o. b.i.d. Trend troponin to peak EKG p.r.n. for any chest pain Check lipid panel TTE Correct any reversible causes of tachycardia including dehydration, any infection, COPD, or other Check and replace electrolytes to keep K greater than 4 and Mg greater than 2 30 day event monitor at discharge [facility] Past Medical History Medical History Tobacco abuse Chronic obstructive pulmonary disease Coronary artery disease (10/2023) Nuclear stress test showed a large, severe non reversible infarcts including multiple meyers of the apex and mid anterior and mid posterior segments consistent with infarct with no reversible ischemia. Surgical History Surgical History History of section Family History Family History Mother Cerebrovascular accident Sibling FH: CABG (coronary artery bypass surgery) Father Stented coronary artery Social History Social History Social History: Surrogate medical decision maker: Meghan Babcock, daughter. Code status: Full code. Smoking packs per day: 1 Smoking cigarettes per day: 20.0 Years smoked: 48 Smoking pack-years: 48.00 Smoking status: Current every day smoker Tobacco type: cigarettes Second hand tobacco smoke exposure: Yes Alcohol intake: current Drinks per week: 14 Substance use: never Substance use type: does not use Do You Feel Safe in your Home?: Yes Lack of Transportation: No Lack of Food: Never True Current Housing: I Have Housing Concerned About Future Housing: No Difficulty Paying Gas/Electric Bills: No Difficulty Paying for Meds: No Currently Unemployed: No Education: High School Diploma/GED Difficulty w/ Childcare or Family Care: No Living arrangements: with family Spiritual care concerns: No Meds Home Medications and Allergies Home Medications Medication Instructions Recorded Confirmed Type albuterol sulfate 90 mcg/actuation 2 puff inhalation TID PRN 10/26/23 11/17/24 History aerosol inhaler Shortness Of Breath Or Wheezing fluticasone propionate 115 2 puff inhalation BID 10/26/23 11/17/24 History mcg-salmeterol 21 mcg/actuation HFA inhaler (Advair HFA) umeclidinium 62.5 mcg/actuation 1 inh inhalation DAILY 10/26/23 11/17/24 History blister powder for inhalation (Incruse Ellipta) nitroglycerin 0.4 mg sublingual 0.4 mg sublingual Q5MIN PRN Chest 10/28/23 11/17/24 Rx tablet (Nitrostat) Pain #10 tabs buspirone 10 mg tablet 10 mg PO Q12HR #60 tabs 11/11/24 11/17/24 Rx metoprolol succinate 25 mg 25 mg PO QAM #30 tabs 11/11/24 11/17/24 Rx tablet,extended release 24 hr (Toprol XL) ipratropium 0.5 mg-albuterol 3 mg 3 ml inhalation Q6HRT PRN 11/17/24 11/17/24 History (2.5 mg base)/3 mL nebulization shortness of breath soln levofloxacin 750 mg tablet 750 mg PO DAILY #5 tabs 11/20/24 Rx prednisone 20 mg tablet 40 mg (2 x 20 mg) PO DAILY #10 tabs 11/20/24 Rx Allergies Allergy/AdvReac Type Severity Reaction Status Date / Time codeine AdvReac Itching Verified 11/23/24 10:50 Vital Signs Vital Signs - 24 hr 11/23/24 10:28 11/23/24 10:30 11/23/24 10:31 Temperature Pulse Rate 98 103 H 117 H Respiratory Rate 21 H 22 H 23 H Blood Pressure 122/77 114/93 H Pulse Oximetry 95 95 Oxygen Delivery 11/23/24 10:32 11/23/24 10:45 11/23/24 10:46 Temperature Pulse Rate 106 H 102 H 97 Respiratory Rate 24 H 16 16 Blood Pressure 120/100 H Pulse Oximetry 95 90 94 Oxygen Delivery 11/23/24 10:47 11/23/24 11:00 11/23/24 11:01 Temperature 97.3 F L Pulse Rate 95 92 92 Respiratory Rate 24 H 20 17 Blood Pressure 120/100 H 113/96 H Pulse Oximetry 94 94 96 Oxygen Delivery Room Air 11/23/24 11:15 11/23/24 11:30 11/23/24 12:20 Temperature Pulse Rate 96 87 95 Respiratory Rate 17 20 23 H Blood Pressure 103/76 Pulse Oximetry 91 92 94 Oxygen Delivery H&P: Results Labs Labs: Short CBC 11/23/24 Range/Units 10:45 WBC 13.8 H (4.5-10.0) K/mm3 Hgb 16.3 H (12.0-15.0) g/dL Hct 50.7 H (37.0-47.0) % Plt Count 235 (150-375) k/mm3 BMP 11/23/24 10:45 Sodium 139 Potassium 3.9 Chloride 104 Carbon Dioxide 28 BUN 20 H Creatinine 0.88 Glucose 118 H Calcium 9.0 Cardiac Enzymes 11/23/24 Range/Units 10:45 Troponin I 0.142 H* (0.000-0.034) ng/mL Liver Function 11/23/24 Range/Units 10:45 Total Bilirubin 0.5 (0.2-1.3) mg/dL AST 42 H (14-36) U/L ALT 52 H (6-35) U/L Alkaline Phosphatase 51 (38-126) U/L Albumin 4.1 (3.5-5.1) g/dL
--- NOTE | 2024-11-23 13:13 | PC.NURSE ---
patient being admitted with heparin infusing per order.
--- NOTE | 2024-11-23 13:49 | PC.NURSE ---
Arrived to the floor via wheelchair from the ER. Able to transfer from the wheel chair to the bed without difficulty. Denies shortness of breath at this time. Vital signs obtained. dressing machine operator on and functioning at this time. Patient states that she still smokes, although I have cut back . States I hope they get it right this time and there is a pill that will help me . Patient denies using oxygen at home, however; states I do have oxygen to use as needed . This RN informed the patient that she may be on all of the right medications but that since she goes home and continues to smoke cigarettes that can increase her heart rate, not to mention, so can a decrease in oxygen saturations. Patient appears to be in denial about severity of her COPD during discussion.
[2024-11-23] MEDS: PERFLUTREN LIPID MICROSPHERES 1.5 ML VIAL DILUTED TO 10 ML TOTAL VOLUME IV PUSH (14:40)
[2024-11-23 14:54] LABS: Troponin I 0.141 ng/mL (0.000-0.034)
--- NOTE | 2024-11-23 15:34 | PM.IMHP ---
H&P: [facility] History of Present Illness Date/Time: 11/23/24 15:34 Chief Complaint: Shortness of breath, anxiety Narrative: Patient with history of CAD, COPD, anxiety, grade 1 diastolic dysfunction recently was discharged on 11/20/2024 for pneumonia and COPD exacerbation. Patient presented to hospital because of palpitation. Patient notes a pill of night she suddenly woke up with palpitation. She checked her heart rate was around 120s and going up to 160s/70s with activities. Patient was very anxious and decided to come to ER for further management. Denies any chest pain, shortness a breath, abdominal pain, nausea vomiting. in the Er patient was found to have sinus rhythm with heart rate 90s. WBC 13.8, hemoglobin 16.3. Troponin 0.142 Cardiology was consulted for further management. Cardiology recommended to increase metoprolol to b.i.d. follow-up with troponin level. Echo pending. Patient was admitted for further management Review of Systems Review of Systems: A complete review of systems was performed and negative other than those mentioned in HPI [facility] Past Medical History Medical History Tobacco abuse Chronic obstructive pulmonary disease Coronary artery disease (10/2023) Nuclear stress test showed a large, severe non reversible infarcts including multiple meyers of the apex and mid anterior and mid posterior segments consistent with infarct with no reversible ischemia. Surgical History Surgical History History of section Family History Family History Mother Cerebrovascular accident Sibling FH: CABG (coronary artery bypass surgery) Father Stented coronary artery Social History Social History Social History: Surrogate medical decision maker: Meghan Babcock, daughter. Code status: Full code. Smoking packs per day: 1 Smoking cigarettes per day: 20.0 Years smoked: 48 Smoking pack-years: 48.00 Smoking status: Current every day smoker Tobacco type: cigarettes Second hand tobacco smoke exposure: Yes Alcohol intake: current Drinks per week: 14 Substance use: never Substance use type: does not use Do You Feel Safe in your Home?: Yes Lack of Transportation: No Lack of Food: Never True Current Housing: I Have Housing Concerned About Future Housing: No Difficulty Paying Gas/Electric Bills: No Difficulty Paying for Meds: No Currently Unemployed: No Education: High School Diploma/GED Difficulty w/ Childcare or Family Care: No Living arrangements: with family Spiritual care concerns: Yes Meds Home Medications and Allergies Home Medications Medication Instructions Recorded Confirmed Type albuterol sulfate 90 mcg/actuation 2 puff inhalation TID PRN 10/26/23 11/23/24 History aerosol inhaler Shortness Of Breath Or Wheezing fluticasone propionate 115 2 puff inhalation BID 10/26/23 11/23/24 History mcg-salmeterol 21 mcg/actuation HFA inhaler (Advair HFA) umeclidinium 62.5 mcg/actuation 1 inh inhalation DAILY 10/26/23 11/23/24 History blister powder for inhalation (Incruse Ellipta) nitroglycerin 0.4 mg sublingual 0.4 mg sublingual Q5MIN PRN Chest 10/28/23 11/23/24 Rx tablet (Nitrostat) Pain #10 tabs buspirone 10 mg tablet 10 mg PO Q12HR #60 tabs 11/11/24 11/23/24 Rx metoprolol succinate 25 mg 25 mg PO QAM #30 tabs 11/11/24 11/23/24 Rx tablet,extended release 24 hr (Toprol XL) ipratropium 0.5 mg-albuterol 3 mg 3 ml inhalation Q6HRT PRN 11/17/24 11/23/24 History (2.5 mg base)/3 mL nebulization shortness of breath soln levofloxacin 750 mg tablet 750 mg PO DAILY #5 tabs 11/20/24 11/23/24 Rx prednisone 20 mg tablet 40 mg (2 x 20 mg) PO DAILY #10 tabs 11/20/24 11/23/24 Rx Allergies Allergy/AdvReac Type Severity Reaction Status Date / Time codeine AdvReac Itching Verified 11/23/24 10:50 Vital Signs Vital Signs - 24 hr 11/23/24 10:28 11/23/24 10:30 11/23/24 10:31 Temperature Pulse Rate 98 103 H 117 H Respiratory Rate 21 H 22 H 23 H Blood Pressure 122/77 114/93 H Pulse Oximetry 95 95 Oxygen Delivery 11/23/24 10:32 11/23/24 10:45 11/23/24 10:46 Temperature Pulse Rate 106 H 102 H 97 Respiratory Rate 24 H 16 16 Blood Pressure 120/100 H Pulse Oximetry 95 90 94 Oxygen Delivery 11/23/24 10:47 11/23/24 11:00 11/23/24 11:01 Temperature 97.3 F L Pulse Rate 95 92 92 Respiratory Rate 24 H 20 17 Blood Pressure 120/100 H 113/96 H Pulse Oximetry 94 94 96 Oxygen Delivery Room Air 11/23/24 11:15 11/23/24 11:30 11/23/24 12:20 Temperature Pulse Rate 96 87 95 Respiratory Rate 17 20 23 H Blood Pressure 103/76 Pulse Oximetry 91 92 94 Oxygen Delivery 11/23/24 13:39 11/23/24 14:00 Temperature 98.2 F Pulse Rate 93 94 Respiratory Rate 22 H Blood Pressure 104/85 Pulse Oximetry 93 Oxygen Delivery Exam Narrative: General: Alert oriented x3, no acute distress Neck: Supple, no JVD Chest: Bilaterally clear to auscultation, no rales or rhonchi Cardiac: S1, S2 +, regular rate, regular rhythm, no murmurs or rubs Extremities: No pedal edema, no skin rash Neurologic: Alert and oriented x3, no focal neurological deficits H&P: Results Labs Labs: Short CBC 11/23/24 Range/Units 10:45 WBC 13.8 H (4.5-10.0) K/mm3 Hgb 16.3 H (12.0-15.0) g/dL Hct 50.7 H (37.0-47.0) % Plt Count 235 (150-375) k/mm3 [facility] 11/23/24 10:45 Sodium 139 Potassium 3.9 Chloride 104 Carbon Dioxide 28 BUN 20 H Creatinine 0.88 Glucose 118 H Calcium 9.0 Cardiac Enzymes 11/23/24 11/23/24 Range/Units 10:45 13:30 Troponin I 0.142 H* 0.141 H* (0.000-0.034) ng/mL Liver Function 11/23/24 Range/Units 10:45 Total Bilirubin 0.5 (0.2-1.3) mg/dL AST 42 H (14-36) U/L ALT 52 H (6-35) U/L Alkaline Phosphatase 51 (38-126) U/L Albumin 4.1 (3.5-5.1) g/dL Assessment and Plan Assessment and plan (1) CAD (coronary artery disease): Code(s): I25.10 - Atherosclerotic heart disease of [place] coronary artery without angina pectoris Status: Acute (2) Palpitations: Code(s): R00.2 - Palpitations Status: Acute (3) Elevated troponin: Code(s): R79.89 - Other specified abnormal findings of blood chemistry Status: Acute Plan Palpitation: Possible arrhythmia versus anxiety Will increase metoprolol to b.i.d. Echo pending Telemonitoring Cardiology team on board Holter monitor at discharge Elevated troponin Possible demand ischemia Follow troponin level Continue monitor COPD Home inhalers Prednisone Consistent monitor Sleep apnea Follow-up sleep study as the patient Leukocytosis Likely secondary to steroid use Continue to monitor
[2024-11-23 17:27] LABS: Troponin I 0.115 ng/mL (0.000-0.034)
[2024-11-23 19:00] LABS: Basophils Percent Auto 0.2 % (0.2-1.2); Hematocrit 46.6 % (37.0-47.0); Hemoglobin 15.1 g/dL (12.0-15.0); Immature Granulocyte Percent A 0.8 % (0-0.5); Lymphocytes Absolute Auto 1.21 K/mm3 (0.9-3.2); Lymphocytes Percent Auto 9.4 % (18.3-44.2); Mean Corpuscular HGB Conc 32.4 g/dl (32-36); Mean Corpuscular Hemoglobin 32.3 pg (26-34); Mean Corpuscular Volume 99.8 fl (80-100); Mean Platelet Volume 10.3 fl (7.4-10.4); Monocytes Absolute Auto 0.7 K/mm3 (0.1-0.6); Monocytes Percent Auto 5.1 % (2.6-8.5); Neutrophils Absolute Auto 10.9 K/mm3 (1.3-6.7); Neutrophils Percent Auto 84.5 % (45.5-73.1); Platelet Count Result 237 k/mm3 (150-375); Red Blood Count 4.67 M/mm3 (4.2-5.4); Red Cell Distribution Width 13.9 % (11.5-14.5); White Blood Count 12.8 K/mm3 (4.5-10.0)
[2024-11-23 19:11] LABS: Prothrombin Time 13.1 Seconds (11.1-14.7)
[2024-11-23 19:12] LABS: Partial Thromboplastin Time 44.2 Seconds (22.3-36.8)
[2024-11-23] MEDS: busPIRone HCL 10 MG TABLET PO (20:22)
[2024-11-23] MEDS: FLUTICASONE/SALMETEROL 115-21 MCG INHALER 1 PUFF 2 PUFF INHALATION (20:54)
[2024-11-23] MEDS: NICOTINE (*PBKC) 21 MG PATCH 1 PATCH TRANSDERM (21:21)
[2024-11-24] VITALS (10 sets, daily range): BP systolic 115–122; BP diastolic 57–77; PULSE 69–125; RESP 20–22; TEMP 36.5–36.7; O2SAT 93–95
[2024-11-24 02:46] LABS: Basophils Percent Auto 0.2 % (0.2-1.2); Eosinophils Absolute Auto 0.1 K/mm3 (0-0.3); Eosinophils Percent Auto 1.2 % (0-4.4); Hemoglobin 14.7 g/dL (12.0-15.0); Immature Granulocyte Absolute 0.13 K/mm3 (0.00-0.031); Immature Granulocyte Percent A 1.2 % (0-0.5); Lymphocytes Absolute Auto 2.88 K/mm3 (0.9-3.2); Lymphocytes Percent Auto 26.8 % (18.3-44.2); Mean Corpuscular Hemoglobin 32.5 pg (26-34); Mean Corpuscular Volume 101.5 fl (80-100); Mean Platelet Volume 10.4 fl (7.4-10.4); Monocytes Absolute Auto 0.6 K/mm3 (0.1-0.6); Monocytes Percent Auto 5.9 % (2.6-8.5); Neutrophils Percent Auto 64.7 % (45.5-73.1); Nucleated Red Blood Cells Perc 0.6 % (0.0-0.2); Platelet Count Result 197 k/mm3 (150-375); Red Blood Count 4.53 M/mm3 (4.2-5.4); Red Cell Distribution Width 13.9 % (11.5-14.5); White Blood Count 10.7 K/mm3 (4.5-10.0)
[2024-11-24 03:20] LABS: Partial Thromboplastin Time > 200.0 Seconds (22.3-36.8)
[2024-11-24] MEDS: busPIRone HCL 10 MG TABLET PO (08:27)
[2024-11-24] MEDS: ASPIRIN 81 MG CHEWABLE TABLET PO (08:28)
[2024-11-24] MEDS: METOPROLOL SUCCINATE EXT REL 25 MG TABCR PO (08:28)
[2024-11-24] MEDS: predniSONE 20 MG TABLET 40 MG PO (08:29)
[2024-11-24 08:51] LABS: NT Pro B Type Natriuretic Pept 2880 pg/mL (19.9-100)
[2024-11-24] MEDS: FLUTICASONE/SALMETEROL 115-21 MCG INHALER 1 PUFF 2 PUFF INHALATION (09:55)
[2024-11-24] MEDS: UMECLIDINIUM BROMIDE 62.5 MCG ELLIPTA 1 PUFF INHALATION (09:56)
[2024-11-24] MEDS: HEPARIN SODIUM 5,000 UNITS/ML VIAL 4000 UNITS IV PUSH (12:10)
--- NOTE | 2024-11-24 12:17 | P.PNCA_ITS ---
Progress Note: A&P Assessment and Plan (1) Elevated troponin: Code(s): R79.89 - Other specified abnormal findings of blood chemistry Status: Acute (2) Coronary artery disease: Onset Date: 10/2023 Code(s): I25.10 - Atherosclerotic heart disease of [place] coronary artery without angina pectoris Status: Acute (3) Palpitations: Code(s): R00.2 - Palpitations Status: Acute Plan 64-year-old woman with CAD (ostial/prox LAD 20-30% on left heart catheterization in 12/2023), COPD, active tobacco abuse, and anxiety presented with palpitations found to have sinus tachycardia Troponin elevation -the trend is in consistent ACS and can stop heparin drip -will follow-up transthoracic echocardiogram Coronary artery disease -continue aspirin 81 mg p.o. daily and would add rosuvastatin 20 mg every evening -skilled nursing facility counselor on tobacco cessation provided Sinus tachycardia -can continue Toprol 25 mg p.o. b.i.d. -workup per primary team Subjective Date/time seen: 11/24/24 12:17 Interval history: Patient feeling well today. Review of Systems Cardiovascular: Cardiovascular: Reports as per HPI Respiratory: Respiratory: Reports as per HPI Exam Const: General: comfortable HENMT: Mouth: Yes moist mucous membranes Eyes: EOM: EOMs intact bilaterally Neck: Neck: no JVD Resp: Effort & Inspection: normal respiratory effort Auscultation: clear to auscultation bilaterally Cardio: Rate: regular rate Rhythm: regular rhythm Extrem: General: no pedal edema Objective Data Vital Signs Vital Signs: Vital Signs - 24 hr 11/23/24 12:20 11/23/24 13:39 11/23/24 14:00 Temperature 36.8 C Pulse Rate 95 93 94 Respiratory Rate 23 H 22 H Blood Pressure 103/76 104/85 Pulse Oximetry 94 93 Oxygen Delivery Fraction of Inspired Oxygen 11/23/24 15:52 11/23/24 16:00 11/23/24 18:00 Temperature 36.7 C Pulse Rate 94 87 88 Respiratory Rate 24 H Blood Pressure 102/60 Pulse Oximetry 94 Oxygen Delivery Fraction of Inspired Oxygen 11/23/24 20:00 11/23/24 20:00 11/23/24 20:00 Temperature 36.5 C Pulse Rate 81 83 83 Respiratory Rate 22 H 22 H Blood Pressure 97/57 L Pulse Oximetry 93 92 Oxygen Delivery Room Air Fraction of Inspired Oxygen 11/23/24 21:17 11/23/24 22:00 11/23/24 23:45 Temperature 36.5 C Pulse Rate 82 74 79 Respiratory Rate 22 H Blood Pressure 117/52 L Pulse Oximetry 92 95 Oxygen Delivery Room Air Fraction of Inspired Oxygen 11/23/24 23:47 11/23/24 23:47 11/24/24 02:00 Temperature Pulse Rate 72 72 72 Respiratory Rate 22 H Blood Pressure Pulse Oximetry 95 Oxygen Delivery Room Air Fraction of Inspired Oxygen 11/24/24 03:48 11/24/24 04:00 11/24/24 04:00 Temperature 36.5 C Pulse Rate 79 69 69 Respiratory Rate 22 H 22 H Blood Pressure 116/57 L Pulse Oximetry 95 95 Oxygen Delivery Room Air Fraction of Inspired Oxygen 11/24/24 06:00 11/24/24 07:58 11/24/24 07:58 Temperature 36.6 C Pulse Rate 74 111 H Respiratory Rate 20 Blood Pressure 122/77 Pulse Oximetry 93 93 Oxygen Delivery Room Air Fraction of Inspired Oxygen 11/24/24 08:00 11/24/24 08:28 11/24/24 10:00 Temperature Pulse Rate 119 H 125 H 90 Respiratory Rate Blood Pressure Pulse Oximetry Oxygen Delivery Fraction of Inspired Oxygen 11/24/24 11:50 Temperature 36.7 C Pulse Rate 115 H Respiratory Rate 20 Blood Pressure 115/70 Pulse Oximetry 93 Oxygen Delivery Fraction of Inspired Oxygen Intake/Output Intake/Output: Intake & Output 11/21/24 11/22/24 11/23/24 11/24/24 23:59 23:59 23:59 23:59 Intake Total 696.7 737.0 Output Total 850 200 Balance -153.3 537.0 Meds/Results Medications: Active Medications Generic Name Dose Route Start Last Admin Trade Name Freq PRN Reason Stop Dose Admin Albuterol 2 puff 11/23/24 14:28 Albuterol Sulfate (*Sp) Aerosol 1 Puff INHALATION TID PRN Shortness Of Breath Or Wheezing Albuterol/Ipratropium 3 ml 11/23/24 14:28 Ipratropium 0.5 Mg/Albuterol Sulfate 2.5 Mg Ampul.Neb 3 Ml INHALATION Q6HRT PRN shortness of breath Alprazolam 0.25 mg 11/23/24 15:44 Alprazolam (*Crx) 0.25 Mg Tablet PO TID PRN Anxiety Aspirin 81 mg 11/24/24 08:00 11/24/24 08:28 Aspirin 81 Mg Chewable Tablet PO 81 mg DAILY@0800 EMILY Administration Buspirone HCl 10 mg 11/23/24 21:00 11/24/24 08:27 Buspirone Hcl 10 Mg Tablet PO 10 mg Q12HR EMILY Administration Heparin Sodium (Porcine) 4,000 units 11/23/24 11:55 11/24/24 12:10 Heparin Sodium 5,000 Units/Ml Vial IV PUSH 4,000 units PRN PRN Administration aPTT less than 55 seconds Heparin Sodium (Porcine) 3,000 units 11/23/24 11:56 Heparin Sodium 5,000 Units/Ml Vial IV PUSH PRN PRN aPTT 55 - 70 seconds Heparin Sodium/Dextrose 25,000 units in 250 mls @ 12 mls/hr 11/23/24 11:55 11/24/24 12:11 Heparin Sodium/D5w 100 Units/Ml IV CONT 1,200 units/hr .[id number] EMILY 12 mls/hr Titration Protocol 1,200 UNITS/HR Metoprolol Succinate 25 mg 11/24/24 09:00 11/24/24 08:28 Metoprolol Succinate Ext Rel 25 Mg Tabcr PO 25 mg Q12HR EMILY Administration Nicotine 1 patch 11/23/24 21:05 11/23/24 21:21 Nicotine (*Pbkc) 21 Mg Patch TRANSDERM 1 patch DAILY EMLIY Administration Ondansetron HCl 4 mg 11/23/24 12:09 Ondansetron Inj 4 Mg/2 Ml Vial IV PUSH Q4H PRN Nausea Prednisone 40 mg 11/24/24 09:00 11/24/24 08:29 Prednisone 20 Mg Tablet PO 11/28/24 09:01 40 mg DAILY EMILY Administration Fluticasone/Salmeterol 2 puff 11/23/24 20:00 11/24/24 09:55 Fluticasone/Salmeterol 115-21 Mcg Inhaler 1 Puff INHALATION 2 puff Q12HRT EMILY Administration Umeclidinium [place] 1 puff 11/24/24 09:00 11/24/24 09:56 Umeclidinium [place] 62.5 Mcg Ellipta INHALATION 1 puff DAILY EMILY Administration Radiology Results: ITS Impressions Chest X-Ray 11/23/24 11:53 Impression: Clear lungs. T6 compression fracture. Labs Labs: Laboratory Results - last 24 hr 11/23/24 11/23/24 11/23/24 13:30 16:53 18:55 WBC 12.8 H RBC 4.67 Hgb 15.1 H Hct 46.6 MCV 99.8 MCH 32.3 MCHC 32.4 RDW 13.9 Plt Count 237 MPV 10.3 Immature Gran % (Auto) 0.8 H Neut % (Auto) 84.5 H Lymph % (Auto) 9.4 L [place] % (Auto) 5.1 Eos % (Auto) 0.0 Baso % (Auto) 0.2 Lymph # (Auto) 1.21 [place] # (Auto) 0.7 H Eos # (Auto) 0.0 Baso # (Auto) 0.0 Abs Immat Gran (auto) 0.10 H Absolute Neuts (auto) 10.9 H Absolute Nucleated RBC 0.000 Nucleated RBC % 0.0 PT 13.1 INR 1.0 APTT 44.2 H Troponin I 0.141 H* 0.115 H* NT-Pro-B Natriuret Pep TSH (Reflex) 11/24/24 11/24/24 11/24/24 02:38 08:17 10:34 WBC 10.7 H RBC 4.53 Hgb 14.7 Hct 46.0 MCV 101.5 H MCH 32.5 MCHC 32.0 RDW 13.9 Plt Count 197 MPV 10.4 Immature Gran % (Auto) 1.2 H Neut % (Auto) 64.7 Lymph % (Auto) 26.8 [place] % (Auto) 5.9 Eos % (Auto) 1.2 Baso % (Auto) 0.2 Lymph # (Auto) 2.88 [place] # (Auto) 0.6 Eos # (Auto) 0.1 Baso # (Auto) 0.0 Abs Immat Gran (auto) 0.13 H Absolute Neuts (auto) 7.0 H Absolute Nucleated RBC 0.060 H Nucleated RBC % 0.6 H PT INR APTT > 200.0 H* 53.0 H Troponin I NT-Pro-B Natriuret Pep 2880 H TSH (Reflex) 3.730
--- NOTE | 2024-11-24 13:27 | PM.DS ---
DS: Admitting Diagnosis Discharge Date 11/24/24 Admitting Diagnosis palpitation/anxiety DS: Discharge Diagnosis Discharge Diagnosis (1) CAD (coronary artery disease): Code(s): I25.10 - Atherosclerotic heart disease of [place] coronary artery without angina pectoris Status: Acute (2) Palpitations: Code(s): R00.2 - Palpitations Status: Acute (3) Elevated troponin: Code(s): R79.89 - Other specified abnormal findings of blood chemistry Status: Acute (4) Non-STEMI (non-ST elevated myocardial infarction): Code(s): I21.4 - Non-ST elevation (NSTEMI) myocardial infarction Status: Acute Plan Palpitation: Possible arrhythmia versus anxiety increase metoprolol to b.i.d. Echo unremarkable Cardiology team on board Holter monitor at discharge Elevated troponin Possible demand ischemia Follow troponin level Continue monitor COPD Home inhalers Prednisone Consistent monitor Sleep apnea Follow-up sleep study as the patient Leukocytosis Likely secondary to steroid use Continue to monitor DS: Summary Hospital Course Hospital Course: per HPi: Patient with history of CAD, COPD, anxiety, grade 1 diastolic dysfunction recently was discharged on 11/20/2024 for pneumonia and COPD exacerbation. Patient presented to hospital because of palpitation. Patient notes a pill of night she suddenly woke up with palpitation. She checked her heart rate was around 120s and going up to 160s/70s with activities. Patient was very anxious and decided to come to ER for further management. Denies any chest pain, shortness a breath, abdominal pain, nausea vomiting. in the Er patient was found to have sinus rhythm with heart rate 90s. WBC 13.8, hemoglobin 16.3. Troponin 0.142 Cardiology was consulted for further management. Cardiology recommended to increase metoprolol to b.i.d. follow-up with troponin level. Echo pending. Patient was admitted for further managemet 11/24/24 Patient was seen and examined at bedside. she is feeling better. denies chest pain, SOB abd pain, N/V. her metoprolol increased to BID. added ASA and lipitor. patient needs to follow with cardiology and sleep study as out patient. Time Spent with Patient Time attestation: Total time spent providing and/or coordinating discharge services: Exam Narrative: General: Alert oriented x3, no acute distress Neck: Supple, no JVD Chest: Bilaterally clear to auscultation, no rales or rhonchi Cardiac: S1, S2 +, regular rate, regular rhythm, no murmurs or rubs Extremities: No pedal edema, no skin rash Neurologic: Alert and oriented x3, no focal neurological deficits DS: Data Data Completed and Pending Labs on day of discharge: Labs from last 24 hours 11/24/24 11/24/24 11/24/24 10:34 08:17 02:38 WBC 10.7 H RBC 4.53 Hgb 14.7 Hct 46.0 MCV 101.5 H MCH 32.5 MCHC 32.0 RDW 13.9 Plt Count 197 MPV 10.4 Immature Gran % (Auto) 1.2 H Neut % (Auto) 64.7 Lymph % (Auto) 26.8 [place] % (Auto) 5.9 Eos % (Auto) 1.2 Baso % (Auto) 0.2 Lymph # (Auto) 2.88 [place] # (Auto) 0.6 Eos # (Auto) 0.1 Baso # (Auto) 0.0 Abs Immat Gran (auto) 0.13 H Absolute Neuts (auto) 7.0 H Absolute Nucleated RBC 0.060 H Nucleated RBC % 0.6 H PT INR APTT 53.0 H > 200.0 H* Troponin I NT-Pro-B Natriuret Pep 2880 H TSH (Reflex) 3.730 11/23/24 11/23/24 11/23/24 18:55 16:53 13:30 WBC 12.8 H RBC 4.67 Hgb 15.1 H Hct 46.6 MCV 99.8 MCH 32.3 MCHC 32.4 RDW 13.9 Plt Count 237 MPV 10.3 Immature Gran % (Auto) 0.8 H Neut % (Auto) 84.5 H Lymph % (Auto) 9.4 L [place] % (Auto) 5.1 Eos % (Auto) 0.0 Baso % (Auto) 0.2 Lymph # (Auto) 1.21 [place] # (Auto) 0.7 H Eos # (Auto) 0.0 Baso # (Auto) 0.0 Abs Immat Gran (auto) 0.10 H Absolute Neuts (auto) 10.9 H Absolute Nucleated RBC 0.000 Nucleated RBC % 0.0 PT 13.1 INR 1.0 APTT 44.2 H Troponin I 0.115 H* 0.141 H* NT-Pro-B Natriuret Pep TSH (Reflex) Discharge Plan Discharge Consulting providers: Angelica Lozada Discharging Clinician: Disha Garces Patient Disposition: Home Activity: as tolerated Diet: heart healthy Patient Instructions: Antibiotic Form Patient Language: Yi Stand Alone Forms: General Discharge Information Follow-up/Referrals: Valdez,MD Parish [Primary Care Provider] - 1 Week Angelica Lozada MD [Physician] - Khalida Ramirez DO [Physician] - Discharge Medications: New aspirin [Children's Aspirin] 81 mg Tablet,Chewable 81 mg PO DAILY@0800 Qty: 30 0RF rosuvastatin 20 mg Tablet 20 mg PO EVENING Qty: 30 0RF nicotine [Nicoderm CQ] 21 mg/24 hr Patch 24 Hour 1 patch transdermal DAILY Qty: 14 0RF Continued albuterol sulfate 90 mcg/actuation HFA aerosol inhaler 2 puff INHALATION TID PRN (Reason: Shortness Of Breath Or Wheezing) fluticasone propion-salmeterol [Advair HFA] 115-21 mcg/actuation HFA aerosol inhaler 2 puff INHALATION BID Incruse Ellipta 62.5 mcg/actuation blister with device 1 inh INHALATION DAILY nitroglycerin [Nitrostat] 0.4 mg Tablet, Sublingual 0.4 mg sublingual Q5MIN PRN (Reason: Chest Pain) Qty: 10 0RF Patient Comments: has not had to admin buspirone 10 mg Tablet 10 mg PO Q12HR Qty: 60 0RF ipratropium-albuterol 0.5 mg-3 mg(2.5 mg base)/3 mL Solution For Nebulization 3 ml inhalation Q6HRT PRN (Reason: shortness of breath) levofloxacin 750 mg tablet 750 mg PO DAILY Qty: 5 0RF Rx Instructions: Please complete the course for 5 days Changed metoprolol succinate [Toprol XL] 25 mg Tablet Extended Release 24 Hr 25 mg PO BID Qty: 30 0RF Discontinued prednisone 20 mg tablet 40 mg PO DAILY Qty: 10 0RF Rx Instructions: Please take 40mg PO x 5 days Other Ambulatory Orders: CA cardiac event monitor (Routine) Timeframe: 1 Day Location: Determined by Patient Ordered By: Disha Garces Lipid Panel (Routine) Timeframe: 2 Days Location: Determined by Patient Ordered By: Disha Garces Date of admission: 11/23/24 12:09 Primary Care Provider: AliviaParish Admitting Provider: Liliane Aguirre Attending physician on admission: Disha Garces Condition: Stable
== END 2024-11-24 14:17 | disposition home or self-care (01) ==
LOC: ANHED 12:14 → ANHIMU 12:35
PROVIDERS: Nurse Practitioner Gerontology; Admitting Provider Internal Medicine; Emergency Provider Emergency Medicine; PCP Internal Medicine; Visit Provider Internal Medicine
DX: R00.2 Palpitations (principal); R79.89 Other specified abnormal findings of blood chemistry; I25.10 Atherosclerotic heart disease of native coronary artery without angina pectoris; R00.0 Tachycardia, unspecified; R06.02 Shortness of breath; F41.9 Anxiety disorder, unspecified; J44.9 Chronic obstructive pulmonary disease, unspecified; F17.210 Nicotine dependence, cigarettes, uncomplicated; G47.30 Sleep apnea, unspecified; D72.829 Elevated white blood cell count, unspecified; Z79.51 Long term (current) use of inhaled steroids; Z79.899 Other long term (current) drug therapy
CPT/HCPCS: 36415; 71046; 80053; 83690; 83735; 83880; 84443; 84484; 85025; 85610; 85730; 93005; 94640; 96367; 96374; 96375; 96376; 99285; A9270; C8929; G0378; J1644; J2060; J7512; Q9957

== ENCOUNTER 2024-11-25 21:34 | Inpatient (IN) | payer OTHER, SELFPAY ==
--- NOTE | ~2024-11-25 | XR_ITS ---
XR chest 2V Ordering provider: Kalpesh Ghosh MD History: 64 years Female with . Shortness of breath . Comparison: November 23, 2024 FINDINGS: MEDIASTINUM: The cardiac silhouette is not enlarged. LUNGS: No infiltrates, effusions or pneumothorax. OTHER: No free air under the diaphragm. IMPRESSION: No acute cardiopulmonary pathology. Reviewed, dictated and finalized at location A.
--- NOTE | ~2024-11-25 | CT_ITS ---
CTA chest PE protocol Ordering provider: Osman Valverde MD History: 64 years Female with . shortness of breath . Comparison: None. Technique: CT angiogram chest was performed following timed intravenous injection of contrast. Thin s lice axial images and reformatted coronal images were obtained. Three dimensional reformatted images of the chest were also obtained using a [employer] workstation. . Automated exposure control and iterati ve reconstruction technique were employed. The dose-length product was 822.01 mGy-cm. 100 mL Omnipaqu e 350 was given IV. Findings: PULMONARY ARTERIES: No pulmonary embolus. VISUALIZED THORACIC INLET: Normal. MEDIASTINUM: Aorta/coronary arteries: Mild atheromatous disease. Heart/other: The heart is not enlarged. Lymph nodes: No mediastinal or hilar adenopathy. LUNGS: Possible nodule or focal atelectasis seen anteriorly in the right upper lobe which measures 1.1 x 1.2 x 1.4 cm. No pulmonary masses. No infiltrates or effusions. No pneumothorax. VISUALIZED UPPER ABDOMEN: Right renal cyst. lobated kidneys is noted. Otherwise, the visualized upper abdomen is normal. MUSCULOSKELETAL: Soft tissues: The superficial soft tissues are normal. Bones: Fracture is seen in T6. Age appropriate degenerative changes of the spine. IMPRESSION: 1. No pulmonary embolism. 2. No acute cardiopulmonary pathology. 3. Focal area of atelectasis versus pneumonia versus nodule seen anteriorly in the right upper lobe measuring 1.1 x 1.2x1.4 cm. 4. Compression fracture in the T6 vertebra. Reviewed, dictated and finalized at location A.
--- NOTE | ~2024-11-25 | NM_ITS ---
EXAMINATION: NM samuel stress w perfusion DATE: 11/28/2024 13:22 INDICATION: Dyspnea on exertion TECHNIQUE: Rest images were obtained following intravenous administration of 9.9 mCi Tc99m tetrofosmi n (Myoview). The patient was infused intravenously with Lexiscan (Regadenoson). Then, 30.0 mCi Tc99m tetrofosmin (Myoview) was administered intravenously, and stress images were obtained. Data was recon structed into short axis and horizontal and vertical long axis SPECT images. Gated SPECT images were also obtained. COMPARISON: None. FINDINGS: There is no definite reversible or fixed perfusion abnormality to suggest ischemia or infar ction. There is normal left ventricular chamber size, wall motion and ejection fraction. Left ventr icular ejection fraction measures >70%. IMPRESSION: 1. Normal myocardial perfusion at rest and during stress. 2. Left ventricular ejection fraction measuring >70%. Reviewed, dictated and finalized at location A.
--- NOTE | ~2024-11-25 | US_ITS ---
EXAMINATION: US venous doppler [facility] DATE: 11/28/2024 18:57 INDICATION: Leg cramps, leg pain. TECHNIQUE: Grayscale images without and with compression and Doppler images of the bilateral lower ex tremity veins were obtained. COMPARISON: None FINDINGS: The right common femoral vein, profunda (deep) femoral vein, femoral vein, popliteal vein, peroneal v ein, posterior tibial veins, gastrocnemius vein, and greater saphenous vein are patent. The left common femoral vein, profunda (deep) femoral vein, femoral vein, popliteal vein, peroneal v ein, posterior tibial veins, gastrocnemius vein, and greater saphenous vein are patent. IMPRESSION: Patent bilateral lower extremity veins. No evidence of deep venous thrombosis. Reviewed, dictated and finalized at location K.
--- OUTSIDE RECORDS SUMMARY | 2024-11-25 21:36 | XMS_ITS | Encounter Summary ---
Author Organization [facility] Healthcare Address [address] [place] [address] Care Team Providers Care Patient Service Technician Pst Name Role Phone Parish Valdez MD Primary Care Provider [phone] Reason for Visit * Cardiology (Routine) - Closed Specialty Diagnoses / Procedures Referred By Contjuanis t Referred To Contact Diagnoses Palpitations Procedures 24 HR Holter Monitor Dylan Rosa MD [address] [facility] [address] [place] [address] Phone: tel: fax: [facility] Medical Group Cardiology [address] [facility] [address] [place] [address] Phone: tel: fax: Referral ID Status Reason Start Date Expiration Date Visits Re quested Visits Authorized [id number] Closed 11/24/2024 12/24/2025 1 1 Encounter Details Date Type Department Care Team (Late st Contact Info) Description 11/24/2024 2:45 PM CDT Ancillary Procedure [facility] Medical [facility] Cardiology [address] [address] Palpitations Social History Tobacco Use Types Packs/Day Years Used Date Smoking Tobacco: Every Day Cigarettes AUDIT-C Answer Date Recorded Q1: How often do you have a drink containing alc ohol? Monthly or less 11/27/2023 Q2: How many drinks containi ng alcohol do you have on a typical day when you are drinking? 1 or 2 11/27/2023 Q3: How often do you have si x or more drinks on one occasion? Never 11/27/2023 Comments Unknown Sex and Gender Information Value Date Recorded Sex Assigned at Not on file Legal Sex Female 8:00 AM CDT Gender Identity Not on file Sexual Orientation Not on file documented as of this encounter Plan of Treatment Pending Results Name Type Priority Associated Diagnoses Date /Time 24 HR Holter Monitor Cardiac Services Routine Palpitations 11/24/2024 3:01 PM CDT documented as of this encounter Visit Diagnoses Diagnosis Palpitations documented in this encounter Care Teams Patient Service Technician Pst Relationship Specialty Start Date End Date Parish Valdez MD [address] [place] [address] PCP - General Internal Medicine 01/01/24 documented as of this encounter
--- OUTSIDE RECORDS SUMMARY | 2024-11-25 21:36 | XMS_ITS | Referral Summary ---
Author Organization [facility] [address] Address [address] [place] [address] Care Team Providers Care Paginator Name Role Phone Parish Valdez MD Primary Care Provider [phone] Encounters Date Type Department Care Team Description 11/24/2024 2:45 PM CDT [address] Procedure [facility] Medical Group Cardiology [address] [place] [address] Palpitations from Last 3 Months Allergies Active Allergy Reactions Criticality Noted Date [...] 8:57 AM CDT Height 165.1 cm (5' 5) 01/01/2024 8:57 AM CDT Body Mass Index 29.29 01/01/2024 8:57 AM CDT Plan of Treatment Not on file [place] [address] [address] Care Teams Paginator Relationship Specialty Start Date End Date Parish Valdez MD [address] [place] [address] PCP - General Internal Medicine 01/01/24
--- OUTSIDE RECORDS SUMMARY | 2024-11-25 21:36 | XMS_ITS | Data Portability ---
Author Organization [facility]el[facility] Cecille Zamarripa Address [address] [facility], [place] [address] Care Team Providers Care Processor Inspector Name Role Phone SATINDER VALDEZ Primary Care Provider [phone] Assessment Encounter Date Assessment Date Assessment LastModified [...] me in 3 months cardiology note reviewed. [email or web address] Not available 01/07/2024 22:12:53 02/24/2024 02/24/2024 smoking [...] start it. Also get pulmonary function tests [email or web address] Not available 02/24/2024 21:43:50 04/29/2024 04/29/2024 she [...] COPD flare she would notify the office [email or web address] Not available 04/29/2024 14:50:20 2024 2024 PFTs. Refuses to get evaluation by gynecology for well-woman refuses any colon cancer screening refuses any immunizations. Blood work has been ordered follow up 3 months. Low-fat diet do not smoke stay active [email or web address] Not available 2024 16:21:48 Plan of Treatment Reminders Order Date Submit Date Provider Last Modified By Organization Details Last Modified Time Details Appointments ANY 2024 10:30A M Satinder Valdez MD Not available Not available Not available ANY 15 2024 01:00P Russell Valdez MD Not available Not available Not available Lab CBC w/ auto diff 2024 025 [facility], [address] [place] [address], [facility] [address], [place], [address], 10/01/2024 08:24:19 CMP, serum or plasma 2024 025 [facility], [address] [place] [address], [facility] [address], [place], [address], 10/01/2024 08:24:18 lipid panel, serum 2024 025 [facility], [address] [place] [address], [facility] [address], [place], [address], 10/01/2024 08:24:17 Referral None recorde d. Procedures None recorde d. Surgeries None recorde d. Imaging None recorde d. Medication Orders prednis one 20 mg tablet 2023 024 [id number], [address], [place], [place], [id number], 2024 12:19:47 atorvas tatin 40 mg tablet 2023 024 [email or web address] [facility] #[id number], [address], [place], [place], [id number], 04/29/2024 14:22:21 prednis one 20 mg tablet 2023 024 [facility] #53203, [address], [place], [place], [id number], 2024 12:19:47 albuter ol sulfate HFA 90 mcg/act uation aerosol inhaler 2022 023 [facility] [id number], [address], [place], [place], [id number], 05/29/2023 15:36:23 Medrol (Hunter) 4 mg tablets in a dose pack 2022 024 [facility] #84058, [address], [place], [place], [id number], 2024 12:19:34 Patient TargetsNo targets recorded. Patient Instructions Encounter Date Encounter Id Patient Instructions Last Modified By Organization Details Last Modified Time 05/29/2023 [id number] When You Want to Lose Weight: Care Instructions [facility] Not available 05/29/2023 15:36:05 Quitting Tobacco: Care Instructions [facility] Not available 05/29/2023 15:36:05 high cholesterol: care instructions [facility] Not available 05/29/2023 15:36:05 chronic obstructive pulmonary disease (COPD): care instructions [facility] Not available 05/29/2023 15:36:04 learning about copd and how to prevent lung infections [facility] Not available 05/29/2023 15:36:04 01/07/2024 [id number] Patient Health Questionnaire-9* [email or web address] Not available 01/08/2024 10:42:52 02/24/2024 [id number] Quitting Tobacco: Care Instructions [email or web address] Not available 02/24/2024 21:44:48 sending diane to [place] for ER note and [facility] for PFT [email or web address] Not available 02/24/2024 17:10:26 Reason for Referral None Reported. Results Created Date Observation Date Name Description Value Unit Range Abnormal Flag Note LastModifiedBy Organization Detail LastModifiedTime 10/01/19 25 10/01/2024 LIPID PANEL cholesterol, total 233 mg/dL 100-19 9 above high normal Not Available [facility] ([facility]) [address] [place], [address], 10/01/2024 08:24:17 10/01/19 25 10/01/2024 LIPID PANEL triglyceride s 200 mg/dL 0-149 above high normal Not Available [facility] ([facility]) [address] [place], [address], 10/01/2024 08:24:17 10/01/19 25 10/01/2024 LIPID PANEL HDL cholesterol 75 mg/dL >39 Not Available [facility] ([facility]) [address] [place], [address], 10/01/2024 08:24:17 10/01/19 25 10/01/2024 LIPID PANEL VLDL cholesterol mahogany 35 mg/dL 5-40 Not Available [facility] ([facility]) [address] [place], [address], 10/01/2024 08:24:17 10/01/19 25 10/01/2024 LIPID PANEL LDL chol calc ([facility]) 123 mg/dL 0-99 above high normal Not Available [facility] ([facility]) [address] [place], [address], 10/01/2024 08:24:17 10/01/19 25 10/01/2024 COMP. METAB OLIC PANEL (14) glucose 84 mg/dL 70-99 Not Available [facility] ([facility]) [address] [place], [address], 10/01/2024 08:24:18 10/01/19 25 10/01/2024 COMP. METAB OLIC PANEL (14) BUN 12 mg/dL 8-27 Not Available [facility] ([facility]) [address] [place], [address], 10/01/2024 08:24:18 10/01/19 25 10/01/2024 COMP. METAB OLIC PANEL (14) creatinine 1.03 mg/dL 0.57-1 .00 above high normal Not Available [facility] ([facility]) [address] [facility], [place], [address], 10/01/2024 08:24:18 10/01/19 25 10/01/2024 COMP. METAB OLIC PANEL (14) eGFR 61 mL/mi n/1.7 3 >59 Not Available [facility] ([facility]) [address] [facility] [place], [address], 10/01/2024 08:24:18 10/01/19 25 10/01/2024 COMP. METAB OLIC PANEL (14) BUN/creatini ne ratio 12 12-28 Not Available [facility] ([facility]) [address] [facility], [place], [address], 10/01/2024 08:24:18 10/01/19 25 10/01/2024 COMP. METAB OLIC PANEL (14) sodium 141 mmol/ L 134-14 4 Not Available [facility] ([facility]) [address] [facility], [place], [address], 10/01/2024 08:24:18 10/01/19 25 10/01/2024 COMP. METAB OLIC PANEL (14) potassium 4.7 mmol/ L 3.5-5. 2 Not Available [facility] ([facility]) [address] [facility], [place], [address], 10/01/2024 08:24:18 10/01/19 25 10/01/2024 COMP. METAB OLIC PANEL (14) chloride 101 mmol/ L 96-106 Not Available [facility] ([facility]) [address] [facility], [place], [address], 10/01/2024 08:24:18 10/01/19 25 10/01/2024 COMP. METAB OLIC PANEL (14) carbon dioxide, total 22 mmol/ L 20-29 Not Available [facility] ([facility]) [address] [facility], [place], [address], 10/01/2024 08:24:18 10/01/19 25 10/01/2024 COMP. METAB OLIC PANEL (14) calcium 9.6 mg/dL 8.7-10 .3 Not Available [facility] ([facility]) [address] [facility], [place], [address], 10/01/2024 08:24:18 10/01/19 25 10/01/2024 COMP. METAB OLIC PANEL (14) protein, total 6.4 g/dL 6.0-8. 5 Not Available [facility] ([facility]) [address] [place], [address], 10/01/2024 08:24:18 10/01/19 25 10/01/2024 COMP. METAB OLIC PANEL (14) albumin 4.3 g/dL 3.9-4. 9 Not Available [facility] ([facility]) [address] [place], [address], 10/01/2024 08:24:18 10/01/19 25 10/01/2024 COMP. METAB OLIC PANEL (14) globulin, total 2.1 g/dL 1.5-4. 5 Not Available [facility] ([facility]) [address] [place], [address], 10/01/2024 08:24:18 10/01/19 25 10/01/2024 COMP. METAB OLIC PANEL (14) bilirubin, total 0.4 mg/dL 0.0-1. 2 Not Available [facility] ([facility]) [address] [place], [address], 10/01/2024 08:24:18 10/01/19 25 10/01/2024 COMP. METAB OLIC PANEL (14) alkaline phosphatase 90 IU/L 44-121 Not Available [facility] ([facility]) [address] [facility] [place], [address], 10/01/2024 08:24:18 10/01/19 25 10/01/2024 COMP. METAB OLIC PANEL (14) AST (SGOT) 17 IU/L 0-40 Not Available [facility] ([facility]) [address] [facility] [place], [address], 10/01/2024 08:24:18 10/01/19 25 10/01/2024 COMP. METAB OLIC PANEL (14) ALT (SGPT) 20 IU/L 0-32 Not Available [facility] ([facility]) [address] [facility], [place], [address], 10/01/2024 08:24:18 10/01/19 25 10/01/2024 CBC WITH DIFFE RENTI AL/PL ATELE T WBC 9.3 x10e3 /uL 3.4-10 .8 Not Available [facility] ([facility]) [address] [place], [address], 10/01/2024 08:24:19 10/01/19 25 10/01/2024 CBC WITH DIFFE RENTI AL/PL ATELE T RBC 5.33 x10e6 /uL 3.77-5 .28 above high normal Not Available [facility] ([facility]) [address] [facility], [place], [address], 10/01/2024 08:24:19 10/01/19 25 10/01/2024 CBC WITH DIFFE RENTI AL/PL ATELE T hemoglobin 17.6 g/dL 11.1-1 5.9 above high normal Not Available [facility] ([facility]) [address] [place], [address], 10/01/2024 08:24:19 10/01/19 25 10/01/2024 CBC WITH DIFFE RENTI AL/PL ATELE T hematocrit 53.6 % 34.0-4 6.6 above high normal Not Available [facility] ([facility]) [address] [place], [address], 10/01/2024 08:24:19 10/01/19 25 10/01/2024 CBC WITH DIFFE RENTI AL/PL ATELE T MCV 101 fL 79-97 above high normal Not Available [facility] ([facility]) [address] [place], [address], 10/01/2024 08:24:19 10/01/19 25 10/01/2024 CBC WITH DIFFE RENTI AL/PL ATELE T MCH 33.0 pg 26.6-3 3.0 Not Available [facility] ([facility]) [address] [place], [address], 10/01/2024 08:24:19 10/01/19 25 10/01/2024 CBC WITH DIFFE RENTI AL/PL ATELE T MCHC 32.8 g/dL 31.5-3 5.7 Not Available [facility] ([facility]) [address] [place], [address], 10/01/2024 08:24:19 10/01/19 25 10/01/2024 CBC WITH DIFFE RENTI AL/PL ATELE T RDW 13.8 % 11.7-1 5.4 Not Available [facility] ([facility]) [address] [place], [address], 10/01/2024 08:24:19 10/01/19 25 10/01/2024 CBC WITH DIFFE RENTI AL/PL ATELE T platelets 263 x10e3 /uL 150-45 0 Not Available [facility] ([facility]) [address] [place], [address], 10/01/2024 08:24:19 10/01/19 25 10/01/2024 CBC WITH DIFFE RENTI AL/PL ATELE T neutrophils 59 % notest ab. Not Available [facility] ([facility]) [address] [facility], [place], [address], 10/01/2024 08:24:19 10/01/19 25 10/01/2024 CBC WITH DIFFE RENTI AL/PL ATELE T lymphs 29 % notest ab. Not Available [facility] ([facility]) [address] [facility], [place], [address], 10/01/2024 08:24:19 10/01/19 25 10/01/2024 CBC WITH DIFFE RENTI AL/PL ATELE T monocytes 8 % notest ab. Not Available [facility] ([facility]) [address] [facility], [place], [address], 10/01/2024 08:24:19 10/01/19 25 10/01/2024 CBC WITH DIFFE RENTI AL/PL ATELE T eos 2 % notest ab. Not Available [facility] ([facility]) [address] [facility], [place], [address], 10/01/2024 08:24:19 10/01/19 25 10/01/2024 CBC WITH DIFFE RENTI AL/PL ATELE T basos 1 % notest ab. Not Available [facility] ([facility]) [address] [facility], [place], [address], 10/01/2024 08:24:19 10/01/19 25 10/01/2024 CBC WITH DIFFE RENTI AL/PL ATELE T neutrophils (absolute) 5.6 x10e3 /uL 1.4-7. 0 Not Available [facility] ([facility]) [address] [facility], [place], [address], 10/01/2024 08:24:19 10/01/19 25 10/01/2024 CBC WITH DIFFE RENTI AL/PL ATELE T lymphs (absolute) 2.7 x10e3 /uL 0.7-3. 1 Not Available [facility] ([facility]) [address] [facility], [place], [address], 10/01/2024 08:24:19 10/01/19 25 10/01/2024 CBC WITH DIFFE RENTI AL/PL ATELE T monocytes(ab solute) 0.7 x10e3 /uL 0.1-0. 9 Not Available [facility] ([facility]) [address] [facility], [place], [address], 10/01/2024 08:24:19 10/01/19 25 10/01/2024 CBC WITH DIFFE RENTI AL/PL ATELE T eos (absolute) 0.2 x10e3 /uL 0.0-0. 4 Not Available [facility] ([facility]) [address] [facility], [place], [address], 10/01/2024 08:24:19 10/01/19 25 10/01/2024 CBC WITH DIFFE RENTI AL/PL ATELE T baso (absolute) 0.1 x10e3 /uL 0.0-0. 2 Not Available [facility] ([facility]) [address] [facility], [place], [address], 10/01/2024 08:24:19 10/01/19 25 10/01/2024 CBC WITH DIFFE RENTI AL/PL ATELE T immature granulocytes 1 % notest ab. Not Available [facility] ([facility]) [address] [facility], [place], [address], 10/01/2024 08:24:19 10/01/19 25 10/01/2024 CBC WITH DIFFE RENTI AL/PL ATELE T immature grans (abs) 0.1 x10e3 /uL 0.0-0. 1 Not Available [facility] ([facility]) [address] [facility], [place], [address], 10/01/2024 08:24:19 02/25/20 24 03/09/2019 PFT, compl ete No observ ation record ed. [address], [place], [address], 02/27/2024 21:30:57 11/11/19 25 11/10/2024 XR, chest No observ ation record ed. [address], [place], [address], 11/11/2024 09:12:50 11/11/19 25 11/10/2024 CT, chest , w/o contr ast No observ ation record ed. [address], [place], [address], 11/22/2024 22:38:13 11/18/19 25 11/17/2024 XR, chest No observ ation record ed. [address], [place], [address], 11/18/2024 10:16:53 11/24/19 25 11/23/2024 XR, chest , 2 view No observ ation record ed. [address], [place], [address], 11/25/2024 14:59:46 11/25/19 25 11/23/2024 stres s echoc ardio gram with doppl er color flow (PROC ) No observ ation record ed. [address], [place], [address], 11/25/2024 15:02:11 Result Notes None recorded. Problems Name Problem SNOMED Code Status Onset Date Resolution Date Notes Provider Name and Address Organization Details Recorded Time Low back pain 942146424 Active 2020 Not Available [facility] 3 17:06:31 At increased risk of nutritiona l deficit 423684724 Active 2021 Not Available [facility] 3 17:06:31 HIV screening Active 2021 Not Available [facility] 3 17:06:31 Chronic hypoxemic respirator y failure 473670636 Active 2023 Satinder Valdez MD Attn: Accounting ,[address] [facility], [place], [place], [address] [place] [address] , [place] [facility] 4 22:10:22 HIV screening declined 4954755461750 00 Active 2023 Satinder Valdez MD Attn: Accounting ,[address] [facility], [place], [address] [place] [address] , [place] [facility] 4 14:50:08 Mammogram declined 396676998 Active 2023 Satinder Valdez MD Attn: Accounting ,[address] [facility], [place], [address] [place] [address] , [place] [facility] 4 14:50:09 Colonoscop y declined 9022957203040 00 Active 2023 Satinder Valdez MD Attn: Accounting ,[address] [facility], [place], [address] [place] [address] , [place] [facility] 4 14:50:10 Influenza vaccinatio n declined 500504926 Active 2023 Satinder Valdez MD Attn: Accounting ,[address] [facility], [place], [address] [place] [address] , [place] [facility] 4 14:50:12 SARS-CoV-2 vaccinatio n declined 5543691817 Active 2023 Satinder Valdez MD Attn: Accounting ,[address] [place], [place], [address] [place] [address] , [place] [facility] 4 14:50:13 Lung cancer screening declined 4447749014934 9105 Active 2023 Satinder Valdez MD Attn: Accounting ,[address] [facility], [place], [address] [place] [address] , [place] [facility] 4 14:50:14 Chronic obstructiv e pulmonary disease 61491532 Active Not Available [facility] 3 17:06:31 Gastroesop hageal reflux disease 582944228 Active Not Available [facility] 3 17:06:31 Tobacco user 313066838 Active Not Available [facility] 3 17:06:31 Obesity 397804221 Active Not Available [facility] 3 17:06:31 Hyperlipid emia 36779076 Active Not Available [facility] 3 17:06:31 Depressive disorder 32549440 Active 2016 Not Available [facility] 3 17:06:31 Bronchitis 96283977 Active 2016 Not Available [facility] 3 17:06:31 Notes:Some problems listed i n Document: #[id number] could not be added to this patient's chart. Please review this document and add these problems to the patient's chart manually as needed. Problem Notes None recorded. Procedures Surgical History Date Name Laterality Status Provider Name and Address Organization Details Recorded Time Caesarean Section completed Jacki Gipson MA [facility] 11/16/2014 14:25:00 Cholecystectomy completed Jacki Gipson MA [facility] 11/16/2014 14:25:00 Imaging Results Imaging Date Name Status LastModified by Organization Details LastModified Time 03/09/2019 PFT, complete completed [address] [place], [address], 02/27/2024 21:30:57 11/10/2024 XR, chest completed [address], [address], 11/11/2024 09:12:50 11/10/2024 CT, chest, w/o contrast completed [address], [address], 11/22/2024 22:38:13 11/17/2024 XR, chest completed [address], [address], 11/18/2024 10:16:53 11/23/2024 XR, chest, 2 view completed [address], [address], 11/25/2024 14:59:46 11/23/2024 stress echocardiogram with doppler color flow (PROC) completed [facility] [address], [place], [address], 11/25/2024 15:02:11 Procedure Notes None recorded. Medical Equipment None Reported. Allergies Allergen ID Allergen Name Allergen Category Reaction Reaction Severity Criticality Documentation Date Start Date Code Code System Note Provider Name and Address Organization Details Recorded Time 948888 codeine medicatio n itching moderate Not available 2024 2670 RxNorm Wendy Reaves MA [facility], [place] - [facility] 12:17:26 Medications Name Sig Start Date Stop [...] PUFFS BY MOUTH THREE TIMES DAILY NEEDED 2024 active Not Available Not Available Not Avai lable doxycycli ne hyclate 100 mg tablet TAKE [...] Updated DateTime 3 158.75 cm 32 kg/m2 18256.4 4 g 115 /min 96 % 96 [...] Updated DateTime 4 158.75 cm 31.8 kg/m2 00816.4 1 g 97 % 97 % 97.8 [...] Updated DateTime 4 158.75 cm 31.1 kg/m2 98343.0 4 g 96 /min 98 % 98 % 120 mm[Hg] 66 mm[Hg] Judy Tafoya [place] [facility] 4 16:17:17 Date Recorded Body height Body mass index (BMI) Body weight Oxygen saturation Oxygen saturation in Arterial blood by Pulse oximetry Heart rate Systolic blood pressure Diastolic blood pressure Provider Name and Address Organization Details Last Updated DateTime 4 158.75 cm 32.8 kg/m2 53957.8 9 g 98 % 98 % 90 /min 124 mm[Hg] 72 mm[Hg] Wendy Ritchie [place] [facility] 4 12:38:08 Date Recorded Body height Body mass index (BMI) Body weight Heart rate Oxygen saturation Oxygen saturation in Arterial blood by Pulse oximetry Systolic blood pressure Diastolic blood pressure Provider Name and Address Organization Details Last Updated DateTime 5 158.75 cm 34.3 kg/m2 91454.7 1 g 107 /min 93 % 93 % 138 mm[Hg] 76 mm[Hg] Wendy Reaves [place] [facility] 12:23:06 Social History Question Answer Notes LastModified by Organizat ion Details LastModified Time Tobacco Smoking Status Current Every Day Smoker Jacki Gipson MA null, [place] - [facility] 11/16/2014 14:25:00 Do You Have An Advance [...] Information not available 11/16/2014 Do You Use Sunscreen Routinely? No Information not available 11/16/2014 Has Tobacco Cessation Counseling Been Provided? Yes Information not available 12/12/2020 On What Date Was Tobacco Cessation Counseling Provided? 2024 Information not available 2024 How Many Years Have You Smoked Tobacco? 30 Information not available 01/07/2024 Do You Have Difficulty Walking Or Climbing Stairs? No Information not available 11/16/2014 Sex: Female Functional Status Question Answer Note LastModified by Organizat ion Details LastModified Time Do you use any illicit or recreational drugs? No Information not available 02/24/2024 Do you or have you ever used any other forms of tobacco or nicotine? No Information not available 2024 What is your level of alcohol consumption? Occasional Information not available 11/16/2014 Are you currently employed? No Information not available 02/24/2024 Do you have difficulty doing errands alone? [...] Time Tdap 11/17/2023 completed Sylvia Baumann MA [facility], [place] - [facility] 2024 09:41:35 Past Encounters Encounter ID Performer Location Encounter Start Date Encounter Closed Date Diagnosis/Indication Diagnosis SNOMED-CT Code Diagnosis ICD10 Code Diagnosis Note [id number] MARILEE Howard (Adult Med) [address] [place] [address] [id number] 11/16/2014 14:11:25 11/16/2014 17:25:43 Chronic obstructive pulmonary disease 50075553 Gastroesop hageal reflux disease 911126459 Tobacco user 208977234 Obesity 664532245 Hyperlipidemia 52077419 [id number] MARILEE Howard (Adult Med) [address] [place] [address] [id number] 0 02/25/2016 14:30:31 02/25/2016 18:01:33 Chronic obstructive pulmonary disease 78778223 J44.9 Gastroesop hageal reflux disease 314570478 K21.9 Hyperlipidemia 73148539 E78.5 Obesity 228485846 E66.9 Tobacco user 869699553 Z 72.0 Normal grief reaction 27 5419476 F43.20 [id number] MD Terri Almonte (Adult Med) [address] [place] [address] [id number] 11/13/2016 14:27:12 11/13/2016 17:33:33 Chronic obstructive pulmonary disease 77006210 J44.9 Gastroesop hageal reflux disease 835719484 K21.9 Obesity 431102715 E66.9 Hyperlipidemia 50837849 E78.5 Depressive disorder 0201 9007 F32.89 grief reaction , lost mom last November (2015) [id number] MD Terri Almonte (Adult Med) [address] [place] [address] [id number] 04/16/2017 15:05:45 04/20/2017 09:00:22 Chronic obstructive pulmonary disease 63623590 J44.9 Bronchitis 95117874 J40 Gastroesop hageal reflux disease 130009351 K21.9 Obesity 751018210 E66.9 Hyperlipidemia 66234649 E78.5 [id number] MD Terri Almonte (Adult Med) [address] [place] [address] [id number] 03/16/2018 16:39:42 03/17/2018 10:11:16 Bronchitis 25454467 J40 Chronic ob structive pulmonary disease 48483795 J44.9 Depressive disorder 3548 9007 F32.89 grief reaction , lost mom last November) Tobacco user 422529980 Z 72.0 Gastroesop hageal reflux disease 236932333 K21.9 Obesity 254316536 E66.9 Hyperlipidemia 01973209 E78.5 [id number] [facility] [address] [place] [address] [phone] 08/30/2018 16:13:03 08/31/2018 08:48:16 Bronchitis 13823206 J40 Tobacco user 043795713 Z 72.0 Chronic ob structive pulmonary disease 43510535 J44.9 Gastroesop hageal reflux disease 612440002 K21.9 Obesity 828429662 E66.9 Hyperlipidemia 77346932 E78.5 Depressive disorder 3548 9007 F32.89 grief reaction , lost mom last November) [id number] MD Terri Almonte (Adult Med) [address] [place] [address] [id number] 0 09/26/2019 10:47:45 09/27/2019 08:42:42 Chronic obstructive pulmonary disease 08977454 J44.9 Gastroesop hageal reflux disease 248290585 K21.9 Hyperlipidemia 03045544 E78.5 Tobacco user 932780637 Z 72.0 [id number] MD Terri Almonte (Adult Med) [address] [place] [address] [phone] 0 07/10/2020 08:17:48 07/10/2020 16:38:50 Chronic obstructive pulmonary disease 06836546 J44.9 Gastroesop hageal reflux disease 464747551 K21.9 Hyperlipidemia 23308165 E78.5 Tobacco user 055524492 Z 72.0 Depressive disorder 3548 9007 F32.89 grief reaction , lost mom last November (2015) [id number] Rosi Begum MD [facility] (Adult Med) [address] [place] [address] 27370-916 0 12/12/2020 10:01:54 12/12/2020 13:53:29 Chronic obstructive pulmonary disease 89912706 J44.9 Gastroesop hageal reflux disease 309258081 K21.9 Hyperlipidemia 90435616 E78.5 Tobacco user 448182386 Z 72.0 Low back pain 780034534 M54.5 [id number] [facility] [address] [place] [address] 72666-745 0 07/22/2021 14:57:13 07/22/2021 15:30:47 Chronic obstructive pulmonary disease 90293237 J44.9 Gastroesop hageal reflux disease 399143633 K21.9 Hyperlipidemia 37995280 E78.5 Tobacco user 363159870 Z 72.0 Obesity 263636706 E66.9 Renewal of prescription 475285380 Z76.0 Low back pain 017844828 M54.50 At increas ed risk of nutritional deficit 600341889 Z91.89 Depressive disorder 3548 9007 F32.89 grief reaction , lost mom last November (2015) [id number] Rosi Begum MD [facility] ([facility]) [address] [place] [address] 76418-286 0 04/01/2022 16:13:01 04/02/2022 10:16:26 Bronchitis 37009407 J40 Chronic ob structive pulmonary disease 99110313 J44.9 Depressive disorder 3548 9007 F32.89 grief reaction , lost mom last November (2015) Gastroesop hageal reflux disease 895159165 K21.9 Hyperlipidemia 49391389 E78.5 Low back pain 581031682 M54.50 Obesity 252679365 E66.9 Tobacco user 127225770 Z 72.0 At increas ed risk of nutritional deficit 531890850 Z91.89 HIV screening 079773637 Z11.4 [id number] Rosi Begum MD [facility] (Adult Med) [address] [place] [address] [phone] 0 08/07/2022 16:27:29 08/08/2022 15:12:17 Obesity 582767743 E66.9 BMI is 33.5.he has been advised to watch her diet, exercise and keep the weight down. Chronic ob structive pulmonary disease 10730732 J44.9 Stable.Wan ts to refill med. Depressive disorder 3548 9007 F32.89 Under the care of her psychiatri . Hyperlipidemia 69120234 E78.5 Low animal fat diet. Tobacco user 274114131 Z 72.0 Advised her to quit smoking. Colon [facility] screening declined 7403371731 9109 Z53.20 She refused 08-07-2022 . Administra tion of diphtheria, pertussis, and tetanus vaccine 744847350 Z23 She refused 08-07-2022 . Influenza vaccination declined 378372090 Z28.21 She refused 08-07-2022 . Mammogram declined 66972 5004 Z53.20 She refused 08-07-2022 , Screening for malignant neoplasm of cervix 105895699 Z12.4 She refused 08-07-2022 . [id number] Rosi Begum MD [facility] (Adult Med) [address] [place] [address] [phone] 0 02/25/2023 16:38:06 02/26/2023 14:14:06 Osteoarthritis 032062864 M19.90 She said that she has arthritis , it huts when weather changes, wants shot term steroid to easy the pain of back. . Discussed with patient, that steroid has potential side effects as well. such as pathologic fracture, hyperglyce jacinto, bleeding ulcer, poor healing of wound, adrenal insufficie ncy just new a few, She understood . Chronic ob structive pulmonary disease 53452544 J44.9 Stable.Andrés ts to refill med.Advair is not on 340-B, will order dulera instead. Smoker 16660890 F17.200 Advised her to quit smoking. She declined LDCT, she smokes half pack/day for more than 40 years. She is aware of cigarettes smoking can cause permanent emphysema. cancer of lung, throat, or mouth and other diseases. Obesity 836345260 E66.9 BMI is 33.5.he has been advised to watch her diet, exercise and keep the weight down. As 02-25-23, BMI is down to 32.5. HIV screen ing declined 4845214262 36664 Z53.20 She declined 02-25-23. [id number] Rosi Begum MD [facility] (Adult Med) [address] [place] [address] 05/29/2023 14:29:10 06/02/2023 16:10:16 Chronic obstructive pulmonary disease 22607381 J44.9 Stable.Wan ts to refill med.Advair is not on 340-B, will order dulera instead. She wants advair inhaler refill, but it is not on the list. and this provider contacted medicare pharmacy no maintenanc e inhaler yael 340-B list any more. Smoker 11250705 F17.200 Advised her to quit smoking. She declined LDCT, she smokes half pack/day for more than 40 years. She is aware of cigarettes smoking can cause permanent emphysema. cancer of lung, throat, or mouth and other diseases. Hyperlipidemia 86661114 E78.5 Low animal fat diet. Obesity 278932504 E66.9 BMI is 33.5.he has been advised to watch her diet, exercise and keep the weight down. As 02-25-23, BMI is down to 32.5. As 05-29-23, BMI down to 32. Mammogram declined 20195 5004 Z53.20 She refused 08-07-2022 , She declined 05-29-23. Cervical c ancer Papanicolaou smear screening declined 6700181732 01679 Z53.20 She declined 05-29-23. Colon canc er screening declined 8250696903 9109 Z53.20 She refused 08-07-2022 . She declined 05-29-23. HIV screen ing declined 7769110490 31410 Z53.20 She declined 02-25-23. She declined 05-29-23. [id number] Satinder Valdez MD [facility] [place] [address] [place] [address] 01/07/2024 14:34:10 01/07/2024 16:25:53 Depression screening 345981117 Z13.31 Chronic ob structive pulmonary disease 70803637 J44.9 Chronic hy poxemic respiratory failure 390221817 J96.11 Hyperlipidemia 67707813 E78.5 [id number] Satinder Valdez MD [facility] (Adult Med) [address] [place] [address] [phone] 0 02/24/2024 15:59:57 02/24/2024 17:12:39 Smoker 15071384 F17.200 Chronic ob structive pulmonary disease 27650172 J44.9 [id number] [address] [facility] (Adult Med) [address] [place] [address] 54356-309 0 04/29/2024 12:05:20 04/29/2024 13:35:35 Hyperlipidemia 04772103 E78.5 Chronic ob structive pulmonary disease 35116554 J44.9 HIV screen ing declined 7643413139 69525 Z53.20 Mammogram declined 22797 5004 Z53.20 Colonoscopy declined 261 1938461 61639 Z53.20 Influenza vaccination declined 922573997 Z28.21 SARS-CoV-2 vaccination declined 5681368027 Z28.21 Lung cance r screening declined 2412687508 1074406 Z53.20 [id number] [facility] (Adult Med) [address] [place] [address] [phone] 0 2024 11:44:40 2024 13:19:13 Body mass index 30+ - obesity 848255296 Z68.34 Hyperlipidemia 26150625 E78.5 Long-term drug therapy 863451030 Z79.899 Chronic ob structive pulmonary disease 24675029 J44.9 Gastroesop hageal reflux disease 896779848 K21.9 Health Concerns Section Related Observation LastModified by Organization Detai ls LastModified Time None Recorded Concern Status LastModified by Organization Details LastModified Time None Recorded Advance Directives Directive N: Payers Encounter Date Sequence Insurance Name Policy Number Policy Ford Covered Member ID Ford Member ID Guarantor Name 05/29/2023 1 [facility] - DOS ON OR AFTER 2020 - DUAL ELIGIBLE (MEDICARE REPLACEMENT/ADVANT AGE - HMO) [id number] Minnie Anguiano [id number] Minnie Anguiano 05/29/2023 2 [employer] [place] (MEDICARE REPLACEMENT/ADVANT AGE) Minnie Anguiano [id number] Minnie Anguiano 01/07/2024 1 [facility] ON OR AFTER 07/13/2020 - DUAL ELIGIBLE (MEDICARE REPLACEMENT/ADVANT AGE - HMO) [id number] Minnie Anguiano [id number] Minnie Anguiano 01/07/2024 2 [employer] [place] (MEDICARE REPLACEMENT/ADVANT AGE) Minnie Anguiano [id number] Minnie Anguiano 02/24/2024 1 [facility] ON OR AFTER 07/13/2020 - DUAL ELIGIBLE (MEDICARE REPLACEMENT/ADVANT AGE - HMO) [id number] Minnie Anguiano [id number] Minnie Anguiano 02/24/2024 2 [employer] [place] (MEDICARE REPLACEMENT/ADVANT AGE) Minnie Anguiano [id number] Minnie Anguiano 04/29/2024 1 [facility] ON OR AFTER 07/13/2020 - DUAL ELIGIBLE (MEDICARE REPLACEMENT/ADVANT AGE - HMO) [id number] Minnie Anguiano [id number] Minnie Anguiano 2024 1 [facility] ON OR AFTER 07/13/2020 - DUAL ELIGIBLE (MEDICARE REPLACEMENT/ADVANT AGE - HMO) [id number] Minnie Anguiano [id number] Minnie Anguiano Notes Date Note Type Note [...] HPI. Rosi Begum MD Attn: [address] [place], [address], [place] [facility] 05/29/2023 15:36:32 01/07/2024 text/html follow-up medica l problems interval history cardiac cath 20% lad aspirin atorvastatin metoprolol discontinued by Cardiology COPD 2 L oxygen continues to smoke breathing stable Satinder Valdez MD Attn: [address]ing[address] [facility], [place], [address], [place] [facility] 01/07/2024 22:13:28 02/24/2024 text/html ER for a COPD flare-up we do not have the records she is doing a little bit better she just quit smoking about 4 days ago she has not had any chest pain breathing has improved Satinder Valdez MD Attn: [address] [facility], [place], [address], [place] [facility] 02/24/2024 21:44:51 04/29/2024 text/html COPD she has bee n doing pretty good with that stable. Dyslipidemia needs her atorvastatin refilled she can do better on a low-fat Satinder Valdez MD Attn: [address]ing[address] [facility], [place], [address], [place] [facility] 04/29/2024 14:50:42 2024 text/html COPD has been doing fairly well. Dyslipidemia she quit taking atorvastatin can not really tell me why rhinitis doing good on fluticasone. GERD denies any heartburn Satinder Valdez MD Attn: [address] [facility], [place], [address], [place] [facility] 2024 16:22:07 OBGyn Episode No OBEpisode recorded.
--- OUTSIDE RECORDS SUMMARY | 2024-11-25 21:36 | XMS_ITS | Clinical Summary ---
Author Organization [facility] [address] [place] [address] [address] [place] [address] Care Team Providers Care Manager Of Photography Name Role Phone Parish Valdez MD Primary Care Provider [phone] Allergies Active Allergy Reactions Criticality Noted Date [...] Active Active Problems No known active problems Encounters Date Type Department Care Team Description 11/24/2024 2:45 PM CDT Ancillary Procedure [facility] Cardiology [address] [place] [address] Palpitations from Last 3 Months Medical History Medical History Date Comments Past [...] Vaccine (1 of 2) 2010 Influenza Vaccine (Season Ended) 2025 DTaP/Tdap/Td Vaccine (2 - Td or Tdap) 11/16/203301/2024 Insurance [facility] Care Teams Manager Of Photography Relationship Specialty Start Date End Date Parish Valdez MD [address] [place] [address] PCP - General Internal Medicine 01/01/24
--- OUTSIDE RECORDS SUMMARY | 2024-11-25 21:37 | XMS_ITS | Clinical Summary ---
Author Organization [facility] Address [address] [place] [address] Care Team Providers Care Vice Principal Name Role Phone Ethan Cerrato Primary Care Provider + Source Comments [facility],non-owned Affiliates and Associated Physician Practices is amultiple site organization consisting of ambulatory clinics and hospital sitesin [place], [place], [place] and [place]. This disclosure is being madepursuant to the Care Everywhere program and may not contain all information available regarding this patient. Last updated 18.[facility] Allergies No known active allergies Medications * [...] on file Legal Sex Female 8:53 AM ICHTHYOLOGIST Gender Identity Not on file Sexual Orientation Not on file Last Filed Vital Signs Vital Sign Reading Time Taken Comments Blood Pressure 122/80 07/25/2017 10:47 AM ICHTHYOLOGIST Pulse 80 07/25/2017 10:47 AM ICHTHYOLOGIST Temperature 36.8 C (98.2 F) 07/25/2017 10:47 AM ICHTHYOLOGIST Respiratory Rate 20 07/25/2017 10:47 AM ICHTHYOLOGIST Oxygen Saturation 94% 07/25/2017 10:47 AM ICHTHYOLOGIST Inhaled Oxygen Concentration - - Weight 74.8 kg (165 lb) 07/25/2017 10:47 AM ICHTHYOLOGIST Height 160 cm (5' 3) 07/25/2017 10:47 AM ICHTHYOLOGIST Body Mass Index 29.23 07/25/2017 10:47 AM ICHTHYOLOGIST Plan of Treatment Health Maintenance Due Date [...] age to complete this topic Insurance [facility] Care Teams Vice Principal Relationship Specialty Start Date End Date Ethan Cerrato PA [address] [place] [address] PCP - General Physician Letter Of Credit Document Examiner 07/25/17
--- OUTSIDE RECORDS SUMMARY | 2024-11-25 21:37 | XMS_ITS | CONTINUITY OF CARE DOCUMENT ---
Author Name alvaro john Address Unknown Organization [facility] Address [address] [place] [address] [address] [place] [address] Phone [phone] Care Team Providers Care Chef Manager Name Role Phone MARGARET GABRIEL MD Unavailable MARGARET GABRIEL MD Unavailable [phone] INSURANCE PROVIDERS Payer name Policy type / Coverage type Swathi red libertarian [employer] Medicaid 1 [id number]
--- NOTE | 2024-11-25 21:39 | ECG_ITS ---
Test Date: 2024-11-25 22:05:38 Measurements Intervals Miller Rate: 132 P: 75 CO: 154 QRS: 85 QRSD: 77 T: 79 QT: 364 QTc: 541 Interpretive Statements SINUS TACHYCARDIA WITH OCCASIONAL ECTOPIC PREMATURE COMPLEXES MINIMAL ST DEPRESSION [0.025+ mV ST DEPRESSION] ABNORMAL ECG Compared to ECG 11/23/2024 10:28:49 ST (T wave) deviation now present Sinus rhythm no longer present T-wave abnormality no longer present Electronically Signed On 11-26-2024 08:08:02 CDT by Cooper Mathias M.D.
--- NOTE | 2024-11-25 21:52 | PC.NURSE ---
pt currently in imaging per family
[2024-11-25 21:59] VITALS: BP 116/79; PULSE 133; RESP 26; TEMP 36.8; O2SAT 93
[2024-11-25 22:20] LABS: Basophils Percent Auto 0.3 % (0.2-1.2); Eosinophils Absolute Auto 0.2 K/mm3 (0-0.3); Eosinophils Percent Auto 1.7 % (0-4.4); Hematocrit 50.2 % (37.0-47.0); Hemoglobin 16.2 g/dL (12.0-15.0); Immature Granulocyte Absolute 0.08 K/mm3 (0.00-0.031); Immature Granulocyte Percent A 0.7 % (0-0.5); Lymphocytes Absolute Auto 3.31 K/mm3 (0.9-3.2); Lymphocytes Percent Auto 29.6 % (18.3-44.2); Mean Corpuscular HGB Conc 32.3 g/dl (32-36); Mean Corpuscular Hemoglobin 32.2 pg (26-34); Mean Corpuscular Volume 99.8 fl (80-100); Mean Platelet Volume 10.1 fl (7.4-10.4); Monocytes Absolute Auto 0.8 K/mm3 (0.1-0.6); Monocytes Percent Auto 7.1 % (2.6-8.5); Neutrophils Absolute Auto 6.8 K/mm3 (1.3-6.7); Neutrophils Percent Auto 60.6 % (45.5-73.1); Platelet Count Result 272 k/mm3 (150-375); Red Blood Count 5.03 M/mm3 (4.2-5.4); Red Cell Distribution Width 13.9 % (11.5-14.5); White Blood Count 11.2 K/mm3 (4.5-10.0)
[2024-11-25 22:31] LABS: Alanine Aminotransferase 64 U/L (6-35); Albumin Level 4.1 g/dL (3.5-5.1); Alkaline Phosphatase 53 U/L (38-126); Anion Gap 9 mmol/L (4-12); Aspartate Amino Transferase 36 U/L (14-36); Bilirubin,Total 0.6 mg/dL (0.2-1.3); Blood Urea Nitrogen 21 mg/dL (7-17); Calcium 9.2 mg/dL (8.4-10.2); Carbon Dioxide 25 mmol/L (22-30); Chloride 105 mmol/L (98-107); Estimated CRCL calculation 45 ml/min; Estimated Glomerular Filt Rate 45; Glucose 121 mg/dL (65-110); Potassium 3.6 mmol/L (3.4-5.0); Sodium 139 mmol/L (137-145)
[2024-11-26] VITALS (17 sets, daily range): BP systolic 108–157; BP diastolic 47–93; PULSE 77–132; RESP 12–21; TEMP 36.4; O2SAT 93–97; BMI 32.1
--- OUTSIDE RECORDS SUMMARY | 2024-11-26 05:19 | XMS_ITS | CONTINUITY OF CARE DOCUMENT ---
Author Name alvaro john Address Unknown Organization [facility] Address [address] [place] [address] [address] [place] [address] Phone [phone] Care Team Providers Care Color Shop Helper Name Role Phone MARGARET GABRIEL MD Unavailable [phone] MARGARET GABRIEL MD Unavailable INSURANCE PROVIDERS Payer name Policy type / Coverage type Swathi red democrat [employer] Medicaid 1 [id number]
--- OUTSIDE RECORDS SUMMARY | 2024-11-26 05:19 | XMS_ITS | Clinical Summary ---
Author Organization [facility] [address] [place] [address] [address] [place] [address] Care Team Providers Care Wheel Of Fortune Dealer Name Role Phone Parish Valdez MD Primary Care Provider [phone] Allergies Active Allergy Reactions Criticality Noted Date [...] Description 11/24/2024 2:45 PM CDT Ancillary Procedure [facility] Cardiology [address] [place] [address] Palpitations from Last 3 Months Medical History [...] 11/16/203301/2024 Insurance [facility] Care Teams Wheel Of Fortune Dealer Relationship Specialty Start Date End Date Parish Valdez MD [address] [place] [address] PCP - General Internal Medicine 01/01/24
--- OUTSIDE RECORDS SUMMARY | 2024-11-26 05:19 | XMS_ITS | Referral Summary ---
Author Organization [facility] [address] Address [address] [place] [address] Care Team Providers Care Sales Team Leader Name Role Phone Parish Valdez MD Primary Care Provider Encounters Date Type Department Care Team Description 11/24/2024 2:45 PM CDT Ancillary Procedure [facility] Medical [facility] Cardiology [address] [place] [address] Palpitations from Last 3 Months [...] Plan of Treatment Not on file [place] [place] [address] Care Teams Sales Team Leader Relationship Specialty Start Date End Date Parish Valdez MD [address] [place] [address] PCP - General Internal Medicine 01/01/24
--- OUTSIDE RECORDS SUMMARY | 2024-11-26 05:19 | XMS_ITS | Clinical Summary ---
Author Organization [facility] Address [address] [place] [address] Care Team Providers Care Sash Finisher Name Role Phone Ethan Cerrato Primary Care Provider + Source Comments [facility],non-owned Affiliates and Associated Physician Practices is amultiple site organization consisting of ambulatory clinics and hospital sitesin [place], [place], [place] and [place]. This disclosure is being madepursuant to the Care Everywhere program and may not contain all information available regarding this patient. Last updated 18.[facility] Allergies No known active allergies Medications * [...] on file Legal Sex Female 8:53 AM ELEVATORS INSPECTOR Gender Identity Not on file Sexual Orientation Not on file Last Filed Vital Signs Vital Sign Reading Time Taken Comments Blood Pressure 122/80 07/25/2017 10:47 AM ELEVATORS INSPECTOR Pulse 80 07/25/2017 10:47 AM ELEVATORS INSPECTOR Temperature 36.8 C (98.2 F) 07/25/2017 10:47 AM ELEVATORS INSPECTOR Respiratory Rate 20 07/25/2017 10:47 AM ELEVATORS INSPECTOR Oxygen Saturation 94% 07/25/2017 10:47 AM ELEVATORS INSPECTOR Inhaled Oxygen Concentration - - Weight 74.8 kg (165 lb) 07/25/2017 10:47 AM ELEVATORS INSPECTOR Height 160 cm (5' 3) 07/25/2017 10:47 AM ELEVATORS INSPECTOR Body Mass Index 29.23 07/25/2017 10:47 AM ELEVATORS INSPECTOR Plan of Treatment Health Maintenance Due Date [...] patient's age to complete this topic Insurance [facility] Care Teams Sash Finisher Relationship Specialty Start Date End Date Ethan Cerrato PA [address] [place] [address] PCP - General Physician Test Desk Supervisor 07/25/17
[2024-11-26] MEDS: LACTATED RINGERS 1,000 ML 999 ML IV CONT ×2 (05:28→07:45)
[2024-11-26 05:59] LABS: Troponin I < 0.012 ng/mL (0.000-0.034)
--- NOTE | 2024-11-26 06:05 | ED_ITS ---
HPI - Arrhythmia/Palpitations General Chief Complaint: Arrhythmia/Palpitations Stated Complaint: HR 140's, short of breath Time Seen by Provider: 11/26/24 04:39 History of Present Illness HPI narrative: 64-year-old female with history of coronary disease, COPD, anxiety, grade 1 diastolic dysfunction and recent hospitalizations multiple times since the beginning of this month. Patient presents to the emergency room with complaints of palpitations and elevated heart rate within the heart rates in the 160s and 170s with activity. She endorses shortness of breath when this happens. She has been evaluated and admitted to the hospital multiple times this month for similar and discharged home with a Holter monitor did 2 days ago. She turned in the Holter monitor yesterday after 24 observation and came to the ER as she was having palpitations and noted that her heart rate was in the 170s. She endorses pain in her chest when this happens and severe anxiety. She has been evaluated multiple times by Cardiology with recommendations for upping her metoprolol and will follow up with her on outpatient basis but this did not happen yet as she returned to the emergency department almost immediately. Related Data Home Medications ?Medication ?Instructions ?Recorded ?Confirmed ?Last Taken ?Type albuterol sulfate 90 mcg/actuation 2 puff inhalation TID PRN 10/26/23 11/23/24 11/23/24 History aerosol inhaler Shortness Of Breath Or Wheezing fluticasone propionate 115 2 puff inhalation BID 10/26/23 11/23/24 11/23/24 History mcg-salmeterol 21 mcg/actuation HFA inhaler (Advair HFA) umeclidinium 62.5 mcg/actuation 1 inh inhalation DAILY 10/26/23 11/23/24 11/23/24 History blister powder for inhalation (Incruse Ellipta) ipratropium 0.5 mg-albuterol 3 mg 3 ml inhalation Q6HRT PRN 11/17/24 11/23/24 11/23/24 History (2.5 mg base)/3 mL nebulization shortness of breath soln Allergies Allergy/AdvReac Type Severity Reaction Status Date / Time codeine AdvReac Itching Verified 11/23/24 10:50 Review of Systems 2 Review of Systems: As reviewed above in HPI REPLACED BY [facility] Past Medical History Medical History Tobacco abuse Chronic obstructive pulmonary disease Coronary artery disease (10/2023) Nuclear stress test showed a large, severe non reversible infarcts including multiple meyers of the apex and mid anterior and mid posterior segments consistent with infarct with no reversible ischemia. Surgical History Surgical History History of section Family History Family History Mother Cerebrovascular accident Sibling FH: CABG (coronary artery bypass surgery) Father Stented coronary artery Social History Social History Social History: Surrogate medical decision maker: Meghan Babcock, daughter. Code status: Full code. Smoking packs per day: 1 Smoking cigarettes per day: 20.0 Years smoked: 48 Smoking pack-years: 48.00 Smoking status: Current every day smoker Tobacco type: cigarettes Second hand tobacco smoke exposure: Yes Alcohol intake: current Drinks per week: 14 Substance use: never Substance use type: does not use Do You Feel Safe in your Home?: Yes Lack of Transportation: No Lack of Food: Never True Current Housing: I Have Housing Concerned About Future Housing: No Difficulty Paying Gas/Electric Bills: No Difficulty Paying for Meds: No Currently Unemployed: No Education: High School Diploma/GED Difficulty w/ Childcare or Family Care: No Living arrangements: with family Spiritual care concerns: Yes Exam 2 Narrative: GENERAL: Morbidly obese, anxious and tearful HEAD: [Normocephalic, atraumatic.] EYES: [PERRLA and EOMI.] ENT: Nares clear, no rhinorrhea or epistaxis. Mucous membranes moist. NECK: Supple. CHEST: Mild tachypnea but no respiratory distress, clear breath sounds throughout HEART: Tachycardic rate with regular rhythm. No murmur heard. [Normal peripheral pulses.] ABDOMEN: [Soft, nondistended], [nontender], [No rigidity or guarding] EXTREMITIES: Normal range of motion. [No edema.] SKIN: Warm, dry, no rash. NEURO: [No focal deficits]. Alert and oriented [x3.] PSYCH: [Normal mood and affect.] Course Vital Signs Vital signs: Vital Signs Temperature 36.8 C 11/25/24 21:59 Pulse Rate 133 H 11/25/24 21:59 Respiratory Rate 26 H 11/25/24 21:59 Blood Pressure 116/79 11/25/24 21:59 Pulse Oximetry 93 11/25/24 21:59 Oxygen Delivery Room Air 11/25/24 21:59 Temperature 36.8 C 11/25/24 21:59 Pulse Rate 90 11/26/24 03:58 Respiratory Rate 21 H 11/26/24 03:58 Blood Pressure 116/79 11/25/24 21:59 Pulse Oximetry 93 11/26/24 03:58 Oxygen Delivery Room Air 11/26/24 03:57 MDM - Arrhythmia/Palpitations MDM Narrative Medical decision making narrative: 64-year-old female history of CAD, COPD, anxiety, grade 1 diastolic dysfunction and multiple visits to the emergency department and admissions to the hospital this month for tachycardia and anxiety. Patient was discharged 2 days ago with outpatient cardiology follow-up after changing her metoprolol to b.i.d. dosing and having her set up a Holter monitor. She turned in her Holter monitor and then drove to the emergency department as she was having anxiety and noted that her palpitations were in the 170s. She is anxious and tearful, tachycardic in the 130s here with tachypnea but not any acute distress otherwise. No saturation concerns at 93% on room air. No blood pressure concerns. Patient expresses severe anxiety and states that she is not safe going home. Suspicion presently is for potential anxiety versus dehydration versus electrolyte anomalies versus less likely ACS or angina. Cardiac workup was ordered to rule out any acute emergent causes and CBC, CMP, troponin, EKG and chest x-ray obtained. Patient's workup shows hemoconcentration with an elevated hematocrit, white count and hemoglobin above her baseline. Patient has an elevated BUN and creatinine from her baseline. She is given 2 L of LR after her laboratory studies showed TONYA and dehydration with hemoconcentration which is surprising given that she was just discharged from the hospital less than 48 hours ago and already has dehydrated herself to this point. Electrolytes are normal, negative troponin, chest x-ray shows no acute cardiopulmonary pathology. EKG shows sinus tachycardia without ectopy. I discussed the case with the hospitalist given patient's presentation and recurrent visits although we have a potential source for her tachycardia today being provide dehydration. Patient was accepted for an observation admission and continued fluids were ordered. Medical Records Attestation: I reviewed the patient's medical records. Lab Data Attestation: I reviewed the patient's lab results. 11/25/24 22:16 11/25/24 22:16 Labs: Lab Results 11/25/24 11/26/24 Range/Units 22:16 05:30 WBC 11.2 H (4.5-10.0) K/mm3 RBC 5.03 (4.2-5.4) M/mm3 Hgb 16.2 H (12.0-15.0) g/dL Hct 50.2 H (37.0-47.0) % MCV 99.8 (80-100) fl MCH 32.2 (26-34) pg MCHC 32.3 (32-36) g/dl RDW 13.9 (11.5-14.5) % Plt Count 272 (150-375) k/mm3 MPV 10.1 (7.4-10.4) fl Immature Gran % (Auto) 0.7 H (0-0.5) % Neut % (Auto) 60.6 (45.5-73.1) % Lymph % (Auto) 29.6 (18.3-44.2) % [place] % (Auto) 7.1 (2.6-8.5) % Eos % (Auto) 1.7 (0-4.4) % Baso % (Auto) 0.3 (0.2-1.2) % Lymph # (Auto) 3.31 H (0.9-3.2) K/mm3 [place] # (Auto) 0.8 H (0.1-0.6) K/mm3 Eos # (Auto) 0.2 (0-0.3) K/mm3 Baso # (Auto) 0.0 (0.0-0.1) K/mm3 Abs Immat Gran (auto) 0.08 H (0.00-0.031) K/mm3 Absolute Neuts (auto) 6.8 H (1.3-6.7) K/mm3 Absolute Nucleated RBC 0.000 (0.0-0.012) K/mm3 Nucleated RBC % 0.0 (0.0-0.2) % Sodium 139 (137-145) mmol/L Potassium 3.6 (3.4-5.0) mmol/L Chloride 105 (98-107) mmol/L Carbon Dioxide 25 (22-30) mmol/L Anion Gap 9 (4-12) mmol/L BUN 21 H (7-17) mg/dL Creatinine 1.20 H (0.7-1.0) mg/dL Estim Creat Clear Calc 45 ml/min Estimated GFR 45 L (59 - ) Glucose 121 H (65-110) mg/dL Calcium 9.2 (8.4-10.2) mg/dL Total Bilirubin 0.6 (0.2-1.3) mg/dL AST 36 (14-36) U/L ALT 64 H (6-35) U/L Alkaline Phosphatase 53 (38-126) U/L Troponin I < 0.012 (0.000-0.034) ng/mL Total Protein 7.0 (6.3-8.2) g/dL Albumin 4.1 (3.5-5.1) g/dL Imaging Data Attestation: I personally reviewed and interpreted this imaging study as follows: My impression: Impressions Chest X-Ray 11/25/24 23:01 IMPRESSION: No acute cardiopulmonary pathology. Discharge Plan Discharge Clinical Impression: TONYA (acute kidney injury), Acute dehydration, Tachycardia, Anxiety, CAD (coronary artery disease) Patient Disposition: Still a Patient Condition: Stable Patient Language: Greek Prescriptions: No Action albuterol sulfate 90 mcg/actuation HFA aerosol inhaler 2 puff INHALATION TID PRN (Reason: Shortness Of Breath Or Wheezing) fluticasone propion-salmeterol [Advair HFA] 115-21 mcg/actuation HFA aerosol inhaler 2 puff INHALATION BID Incruse Ellipta 62.5 mcg/actuation blister with device 1 inh INHALATION DAILY nitroglycerin [Nitrostat] 0.4 mg Tablet, Sublingual 0.4 mg sublingual Q5MIN PRN (Reason: Chest Pain) Qty: 10 0RF Patient Comments: has not had to admin nicotine [Nicoderm CQ] 21 mg/24 hr Patch 24 Hour 1 patch transdermal DAILY Qty: 14 0RF aspirin [Children's Aspirin] 81 mg Tablet,Chewable 81 mg PO DAILY@0800 Qty: 30 0RF rosuvastatin 20 mg Tablet 20 mg PO EVENING Qty: 30 0RF metoprolol succinate [Toprol XL] 25 mg Tablet Extended Release 24 Hr 25 mg PO BID Qty: 30 0RF buspirone 10 mg Tablet 10 mg PO Q12HR Qty: 60 0RF ipratropium-albuterol 0.5 mg-3 mg(2.5 mg base)/3 mL Solution For Nebulization 3 ml inhalation Q6HRT PRN (Reason: shortness of breath) levofloxacin 750 mg tablet 750 mg PO DAILY Qty: 5 0RF Rx Instructions: Please complete the course for 5 days Follow-up/Referrals: José Miguel,MD [facility] [Primary Care Provider] - Time of Disposition: 06:59
--- NOTE | 2024-11-26 08:11 | PC.NURSE ---
Pt refused to go in elevator to be admitted, made aware, no further orders. digital technician made aware, rooming house operator made aware. All agreeable for pt to take stairs as pt requesting.
--- NOTE | 2024-11-26 08:19 | ADMGEN ---
This patient, Minnie Anguiano, was admitted to Medical Room 240-01. Patient/family oriented to hospital policies and general routines including ID bracelet, bed and alarms, visiting hours, pain management, procedures, bathroom and other care routines, personal items, smoking policy, room service/diet, and visiting hours. Information on how to activate the Rapid Response Team has been discussed. Patient/Family are encouraged to report perceived risks to care and to ask questions if they do not understand what they are told or what they should do.
--- NOTE | 2024-11-26 09:43 | P.HP_ITS ---
H&P: HPI History of Present Illness Date/Time: 11/26/24 09:43 Chief Complaint: Palpitation Narrative: 64-year-old female with history of coronary disease, COPD, anxiety, grade 1 diastolic dysfunction and recent hospitalizations multiple times since the beginning of this month. Patient presents to the emergency room with complaints of palpitations and elevated heart rate within the heart rates in the 160s and 170s with activity. She endorses shortness of breath when this happens. She has been evaluated and admitted to the hospital multiple times this month for similar and discharged home with a Holter monitor which she did 2 days ago. She turned in the Holter monitor yesterday after 24 observation and came to the ER as she was having palpitations and noted that her heart rate was in the 170s. She endorses pain in her chest when this happens and severe anxiety. She has been evaluated multiple times by Cardiology with recommendations for upping her metoprolol and will follow up with her on outpatient basis but this did not happen yet as she returned to the emergency department almost immediately. In the ER patient was tachycardic in 130s otherwise vitals were stable. Laboratory studies revealed WBC of 11.2 hematocrit 50 16 platelet 272 Chem panel with normal electrolytes creatinine 1.2 blood sugar was 121. Renal function slightly elevated from her baseline. Troponin was negative. LFTs were normal. She received 2 L of LR in the ER. BNP was elevated at 2880 recent admission EKG with sinus tachycardia. Chest x-ray with no acute cardiopulmonary abnormality. She is admitted in the setting for further observation. She reports that she gets tachycardic whenever she exerts. Review of Systems Review of Systems: - CONSTITUTIONAL: Denies weight loss, fe mattie and chills. - HEENT: Denies changes in vision and he aring - RESPIRATORY: Reports SOB and minimal cough. - CV: Denies palpitations and CP. - GI: Denies abdominal pain, nausea, vom iting and diarrhea. - : Denies dysuria and urinary frequen cy. - MSK: Denies myalgia and joint pain. - SKIN: Denies rash and pruritus. - NEUROLOGICAL: Denies headache and sync ope. - PSYCHIATRIC: Denies recent changes in mood. Denies anxiety and depression. [facility]LY [facility] Past Medical History Medical History Tobacco abuse Chronic obstructive pulmonary disease Coronary artery disease (10/2023) Nuclear stress test showed a large, severe non reversible infarcts including multiple meyers of the apex and mid anterior and mid posterior segments consistent with infarct with no reversible ischemia. Surgical History Surgical History History of section Family History Family History Mother Cerebrovascular accident Sibling FH: CABG (coronary artery bypass surgery) Father Stented coronary artery Social History Social History Social History: Surrogate medical decision maker: Meghan Babcock, daughter. Code status: Full code. Smoking packs per day: 0.5 Smoking cigarettes per day: 10.0 Years smoked: 40 Smoking pack-years: 20.00 Smoking status: Current some day smoker Tobacco type: cigarettes Second hand tobacco smoke exposure: Yes Alcohol intake: former Drinks per week: 28 Substance use: never Substance use type: does not use Last use: 10/11/24 Do You Feel Safe in your Home?: Yes Lack of Transportation: No Lack of Food: Never True Current Housing: I Have Housing Concerned About Future Housing: No Difficulty Paying Gas/Electric Bills: No Difficulty Paying for Meds: No Currently Unemployed: No Education: High School Diploma/GED Difficulty w/ Childcare or Family Care: No Living arrangements: with family Spiritual care concerns: No Meds Home Medications and Allergies Home Medications ?Medication ?Instructions ?Recorded ?Confirmed ?Type albuterol sulfate 90 mcg/actuation 2 puff inhalation TID PRN 10/26/23 11/26/24 History aerosol inhaler Shortness Of Breath Or Wheezing fluticasone propionate 115 2 puff inhalation BID 10/26/23 11/26/24 History mcg-salmeterol 21 mcg/actuation HFA inhaler (Advair HFA) umeclidinium 62.5 mcg/actuation 1 inh inhalation DAILY 10/26/23 11/26/24 History blister powder for inhalation (Incruse Ellipta) nitroglycerin 0.4 mg sublingual 0.4 mg sublingual Q5MIN PRN Chest 10/28/23 11/26/24 Rx tablet (Nitrostat) Pain #10 tabs buspirone 10 mg tablet 10 mg PO Q12HR #60 tabs 11/11/24 11/26/24 Rx ipratropium 0.5 mg-albuterol 3 mg 3 ml inhalation Q6HRT PRN 11/17/24 11/26/24 History (2.5 mg base)/3 mL nebulization shortness of breath soln aspirin 81 mg chewable tablet 81 mg PO DAILY@0800 #30 tabs 11/24/24 11/26/24 Rx (Children's Aspirin) metoprolol succinate 25 mg 25 mg PO BID #30 tabs 11/24/24 11/26/24 Rx tablet,extended release 24 hr (Toprol XL) nicotine 21 mg/24 hr daily 1 patch transdermal DAILY #14 ea 11/24/24 11/26/24 Rx transdermal patch (Nicoderm CQ) rosuvastatin 20 mg tablet 20 mg PO EVENING #30 tabs 11/24/24 11/26/24 Rx Allergies Allergy/AdvReac Type Severity Reaction Status Date / Time codeine AdvReac Itching Verified 11/23/24 10:50 Vital Signs Vital Signs - 24 hr 11/25/24 21:59 11/26/24 03:31 11/26/24 03:57 Temperature 98.3 F Pulse Rate 133 H 96 Respiratory Rate 26 H Blood Pressure 116/79 Pulse Oximetry 93 93 Oxygen Delivery Room Air Room Air 11/26/24 03:58 11/26/24 07:28 Temperature Pulse Rate 90 80 Respiratory Rate 21 H 12 Blood Pressure 157/93 H Pulse Oximetry 93 97 Oxygen Delivery Exam Narrative: GENERAL: Morbidly obese, not in acute distress HEAD: [Normocephalic, atraumatic.] EYES: [PERRLA and EOMI.] ENT: Nares clear, no rhinorrhea or epistaxis. Mucous membranes moist. NECK: Supple. CHEST: Mild tachypnea but no respiratory distress, mild end-expiratory wheeze HEART: Regular rate with regular rhythm. No murmur heard. [Normal peripheral pulses.] ABDOMEN: [Soft, nondistended], [nontender], [No rigidity or guarding] EXTREMITIES: Normal range of motion. [No edema.] SKIN: Warm, dry, no rash. NEURO: [No focal deficits]. Alert and oriented [x3.] PSYCH: [Normal mood and affect.] H&P: Results Labs Labs: Short CBC 11/25/24 Range/Units 22:16 WBC 11.2 H (4.5-10.0) K/mm3 Hgb 16.2 H (12.0-15.0) g/dL Hct 50.2 H (37.0-47.0) % Plt Count 272 (150-375) k/mm3 BMP 11/25/24 22:16 Sodium 139 Potassium 3.6 Chloride 105 Carbon Dioxide 25 BUN 21 H Creatinine 1.20 H Glucose 121 H Calcium 9.2 Cardiac Enzymes 11/26/24 Range/Units 05:30 Troponin I < 0.012 (0.000-0.034) ng/mL Liver Function 11/25/24 Range/Units 22:16 Total Bilirubin 0.6 (0.2-1.3) mg/dL AST 36 (14-36) U/L ALT 64 H (6-35) U/L Alkaline Phosphatase 53 (38-126) U/L Albumin 4.1 (3.5-5.1) g/dL Assessment and Plan Assessment and plan (1) Anxiety: Code(s): F41.9 - Anxiety disorder, unspecified Status: Acute (2) Coronary artery disease: Onset Date: 10/2023 Code(s): I25.10 - Atherosclerotic heart disease of [place] coronary artery without angina pectoris Status: Acute (3) Tachycardia: Code(s): R00.0 - Tachycardia, unspecified Status: Acute (4) Palpitations: Code(s): R00.2 - Palpitations Status: Acute (5) Chronic obstructive pulmonary disease: Code(s): J44.9 - Chronic obstructive pulmonary disease, unspecified Status: Acute Plan 64-year-old female with history of coronary disease, COPD, anxiety, grade 1 diastolic dysfunction and recent hospitalizations multiple times since the beginning of this month. Patient presents to the emergency room with complaints of palpitations and elevated heart rate within the heart rates in the 160s and 170s with activity. She endorses shortness of breath when this happens. She has been evaluated and admitted to the hospital multiple times this month for similar and discharged home with a Holter monitor which she did 2 days ago. She turned in the Holter monitor yesterday after 24 observation and came to the ER as she was having palpitations and noted that her heart rate was in the 170s. She endorses pain in her chest when this happens and severe anxiety. She has been evaluated multiple times by Cardiology with recommendations for upping her metoprolol and will follow up with her on outpatient basis but this did not happen yet as she returned to the emergency department almost immediately. In the ER patient was tachycardic in 130s otherwise vitals were stable. Laboratory studies revealed WBC of 11.2 hematocrit 50 16 platelet 272 Chem panel with normal electrolytes creatinine 1.2 blood sugar was 121. Renal function slightly elevated from her baseline. Troponin was negative. LFTs were normal. She received 2 L of LR in the ER. BNP was elevated at 2880 recent admission EKG with sinus tachycardia. Chest x-ray with no acute cardiopulmonary abnormal ity. She is admitted in the setting for further observation. She reports that she gets tachycardic whenever she exerts. Nonobstructive coronary artery disease by catheterization January of 2024 COPD on home oxygen 2 L at baseline. Possible COPD exacerbation. Mild wheezing. Due to CT to further evaluate due to ongoing tachycardia with exertion. Recent echocardiogram normal EF. Valves were not well visualized. Will get repeat echocardiogram to check her valves. Holter monitor was recently done which is yet to be reviewed. Continue to monitor on telemetry Tobacco abuse Grade 1 diastolic dysfunction echo 11/23/2024 with EF 60-65% valves were not well visualized Anxiety disorder on buspirone Possible sleep apnea will do apnea link at night DVT prophylaxis Lovenox Code status full code Hospitalist [facility] Advance Care Plan I have confirmed that the patient's Advanced Care Plan is present, code status is documented, or surrogate decision maker is listed in patient medical record.: Yes Medication Reconciliation I have utilized all available resources to obtain, update and review the patients current medications (includes all prescriptions, OTC, herbals, cannabis, and nutritional supplements).: Yes
--- NOTE | 2024-11-26 09:47 | PM.CNCAR ---
Assessment and Plan Assessment and plan (1) Palpitations: Code(s): R00.2 - Palpitations Status: Acute Assessment and Plan: Her symptoms are unlikely to cardiac pathology in my opinion. By examination her lungs are tight, wheezing. She has a history of COPD. She is having a COPD exacerbation and with activity her wheezing worsens in her heart rate will increase normally in this situation. This explained sinus tachycardia rather than arrhythmia. Cardiac workup recently has been completely unremarkable including an echocardiogram. EKG is also non concerning. She also has a catheterization from less than a year ago which shows minimal coronary disease. Continue metoprolol for now (2) COPD with exacerbation: Code(s): J44.1 - Chronic obstructive pulmonary disease with (acute) exacerbation Status: Acute Assessment and Plan: She needs a pulmonology evaluation and better treatment as I believe that this is ultimately the cause of her recurrent admissions and recent issues. Will consult Dr. Ragsdale (3) Suspected sleep apnea: Code(s): R29.818 - Other symptoms and signs involving the nervous system Status: Acute (4) Tobacco abuse: Code(s): Z72.0 - Tobacco use Status: Acute Assessment and Plan: Needs to stop and advised to quit (5) CAD (coronary artery disease): Code(s): I25.10 - Atherosclerotic heart disease of [place] coronary artery without angina pectoris Status: Acute Assessment and Plan: She has minimal coronary disease by catheterization in December of 2023. This is not likely to be angina. EKG is unremarkable. Recommend to continue rosuvastatin, metoprolol and aspirin. No further cardiac workup needed at this point History of Present Illness History of Present Illness Consult date/time: 11/26/24 09:47 Requesting physician: Kalpesh Ghosh MD Consult reason: Other (Tachycardia) Reason For Visit: dehydration,tachycardia Narrative: Reason for consultation: Tachycardia Date of service 11/26/[address] Ghosh 64-year-old female with history of coronary disease, COPD, anxiety, grade 1 diastolic dysfunction and recent hospitalizations multiple times since the beginning of this month. Patient presents to the emergency room with complaints of palpitations and elevated heart rate within the heart rates in the 160s and 170s with activity. She endorses shortness of breath when this happens. She has been evaluated and admitted to the hospital multiple times this month for similar and discharged home with a Holter monitor did 2 days ago. She continues to smoke cigarettes up until couple days ago. She states that her symptoms of tachycardia occurs predominantly whenever she is up walking. She is also short of breath at that time. She does have inhalers but uses them sparingly as she cannot get refills. She also feels uncomfortable feeling in her chest. She says that it sometimes feels like a tightness. It is improved with rest. She has no syncope, presyncope. She has a paroxysmal nocturnal dyspnea on 1 occasion. No significant edema. She comes back to the hospital for symptoms that were persistent yesterday and recurrent. She had a cardiac catheterization less than a year ago showing nearly normal coronary arteries:1. Right coronary dominant circulation with no angiographically significant coronary disease, minimal plaquing is noted at the LAD ostium as described above 2. normal appearing left ventricular systolic function with no wall motion abnormalities, stress testing had suggested evidence of previous anterior infarction which appears not to be the case Review of Systems Review of Systems: All systems reviewed & are unremarkable except as noted in HPI and below Constitutional: Constitutional: Denies body ache(s) Eyes: Eyes: Denies blurry vision ENT: Reports Normal hearing present Cardiovascular: Cardiovascular: Denies chest pain and Reports palpitations Respiratory: Respiratory: Reports dyspnea Gastrointestinal: Gastrointestinal: Denies abdominal pain Genitourinary: Genitourinary: Denies hematuria Musculoskeletal: Musculoskeletal: Denies back pain Integumentary/Breasts: Skin/Breast: Denies dry skin Neurologic: Denies Abnormal speech present Psychiatric: Psychiatric: Reports anxiety Endocrine: Endocrine: Denies excessive sweating Hematologic/Lymphatic: Hematologic/Lymphatic: Denies easy bleeding Allergic/Immunologic: Allergic/Immunologic: Denies GI upset with certain foods PMFSH Past Medical History Medical History Tobacco abuse Chronic obstructive pulmonary disease Coronary artery disease (10/2023) Nuclear stress test showed a large, severe non reversible infarcts including multiple meyers of the apex and mid anterior and mid posterior segments consistent with infarct with no reversible ischemia. Surgical History Surgical History History of section Family History Family History Mother Cerebrovascular accident Sibling FH: CABG (coronary artery bypass surgery) Father Stented coronary artery Social History Social History Social History: Surrogate medical decision maker: Meghan Babcock, daughter. Code status: Full code. Smoking packs per day: 0.5 Smoking cigarettes per day: 10.0 Years smoked: 40 Smoking pack-years: 20.00 Smoking status: Current some day smoker Tobacco type: cigarettes Second hand tobacco smoke exposure: Yes Alcohol intake: former Drinks per week: 28 Substance use: never Substance use type: does not use Last use: 10/11/24 Do You Feel Safe in your Home?: Yes Lack of Transportation: No Lack of Food: Never True Current Housing: I Have Housing Concerned About Future Housing: No Difficulty Paying Gas/Electric Bills: No Difficulty Paying for Meds: No Currently Unemployed: No Education: High School Diploma/GED Difficulty w/ Childcare or Family Care: No Living arrangements: with family Spiritual care concerns: No Meds Home Medications and Allergies Home Medications ?Medication ?Instructions ?Recorded ?Confirmed ?Type albuterol sulfate 90 mcg/actuation 2 puff inhalation TID PRN 10/26/23 11/26/24 History aerosol inhaler Shortness Of Breath Or Wheezing fluticasone propionate 115 2 puff inhalation BID 10/26/23 11/26/24 History mcg-salmeterol 21 mcg/actuation HFA inhaler (Advair HFA) umeclidinium 62.5 mcg/actuation 1 inh inhalation DAILY 10/26/23 11/26/24 History blister powder for inhalation (Incruse Ellipta) nitroglycerin 0.4 mg sublingual 0.4 mg sublingual Q5MIN PRN Chest 10/28/23 11/26/24 Rx tablet (Nitrostat) Pain #10 tabs buspirone 10 mg tablet 10 mg PO Q12HR #60 tabs 11/11/24 11/26/24 Rx ipratropium 0.5 mg-albuterol 3 mg 3 ml inhalation Q6HRT PRN 11/17/24 11/26/24 History (2.5 mg base)/3 mL nebulization shortness of breath soln aspirin 81 mg chewable tablet 81 mg PO DAILY@0800 #30 tabs 11/24/24 11/26/24 Rx (Children's Aspirin) metoprolol succinate 25 mg 25 mg PO BID #30 tabs 11/24/24 11/26/24 Rx tablet,extended release 24 hr (Toprol XL) nicotine 21 mg/24 hr daily 1 patch transdermal DAILY #14 ea 11/24/24 11/26/24 Rx transdermal patch (Nicoderm CQ) rosuvastatin 20 mg tablet 20 mg PO EVENING #30 tabs 11/24/24 11/26/24 Rx Allergies Allergy/AdvReac Type Severity Reaction Status Date / Time codeine AdvReac Itching Verified 11/23/24 10:50 Vital Signs Vital Signs - 24 hr 11/25/24 21:59 11/26/24 03:31 11/26/24 03:57 Temperature 36.8 C Pulse Rate 133 H 96 Respiratory Rate 26 H Blood Pressure 116/79 Pulse Oximetry 93 93 Oxygen Delivery Room Air Room Air 11/26/24 03:58 11/26/24 07:28 Temperature Pulse Rate 90 80 Respiratory Rate 21 H 12 Blood Pressure 157/93 H Pulse Oximetry 93 97 Oxygen Delivery Exam Narrative: Awake alert oriented a bit anxious but appears stated age Const: General: comfortable and no acute distress HENMT: Face/Nose/Sinus: Normal nares present Mouth: Yes moist mucous membranes Eyes: General: appearance normal, both eyes and all related structures Sclera: sclerae normal Neck: Neck: supple and no JVD Chest: Other: No reproducible chest wall pain to palpation Resp: Auscultation: rhonchi, wheezes and diminished lung sounds Cardio: Rate: regular rate Rhythm: regular rhythm Heart sounds: no murmurs GI: Inspection: non-distended GI Palp: Yes Soft to palpation Auscultation: normal bowel sounds Skin: General skin exam: normal color Neuro: Speech: normal speech Extrem: General: normal to inspection Psych: Mental Status: mental status grossly normal Affect: normal affect Results Labs and Meds 11/25/24 22:16 11/25/24 22:16 Lab results: Cardiac Enzymes 11/25/24 11/26/24 Range/Units 22:16 05:30 AST 36 (14-36) U/L Troponin I < 0.012 (0.000-0.034) ng/mL CBC 11/25/24 Range/Units 22:16 WBC 11.2 H (4.5-10.0) K/mm3 RBC 5.03 (4.2-5.4) M/mm3 Hgb 16.2 H (12.0-15.0) g/dL Hct 50.2 H (37.0-47.0) % Plt Count 272 (150-375) k/mm3 Lymph # (Auto) 3.31 H (0.9-3.2) K/mm3 [place] # (Auto) 0.8 H (0.1-0.6) K/mm3 Eos # (Auto) 0.2 (0-0.3) K/mm3 Baso # (Auto) 0.0 (0.0-0.1) K/mm3 Comprehensive Metabolic Panel 11/25/24 Range/Units 22:16 Sodium 139 (137-145) mmol/L Potassium 3.6 (3.4-5.0) mmol/L Chloride 105 (98-107) mmol/L Carbon Dioxide 25 (22-30) mmol/L BUN 21 H (7-17) mg/dL Creatinine 1.20 H (0.7-1.0) mg/dL Glucose 121 H (65-110) mg/dL Calcium 9.2 (8.4-10.2) mg/dL AST 36 (14-36) U/L ALT 64 H (6-35) U/L Alkaline Phosphatase 53 (38-126) U/L Total Protein 7.0 (6.3-8.2) g/dL Albumin 4.1 (3.5-5.1) g/dL Intake and Output 11/25/24 11/26/24 11/26/24 23:59 07:59 15:59 Intake Total 1000 Balance 1000 Intake: IV 1000 Lactated Ringers 1,000 ml @ 999 1000 mls/hr IV CONT .Q1H1M STA Rx#: [id number] Patient Weight 11/26/24 23:59 Weight 87.6 kg EKG is personally reviewed and independently interpreted showing sinus tachycardia with nonspecific ST abnormality and a PVC. Recent echocardiogram also personally reviewed any pain interpreted which was essentially normal with normal LV size and found
[2024-11-26 10:26] LABS: Alanine Aminotransferase 62 U/L (6-35); Albumin Level 4.2 g/dL (3.5-5.1); Alkaline Phosphatase 44 U/L (38-126); Anion Gap 10 mmol/L (4-12); Aspartate Amino Transferase 40 U/L (14-36); Bilirubin,Total 0.8 mg/dL (0.2-1.3); Blood Urea Nitrogen 23 mg/dL (7-17); Calcium 9.5 mg/dL (8.4-10.2); Carbon Dioxide 23 mmol/L (22-30); Chloride 106 mmol/L (98-107); Estimated CRCL calculation 50 ml/min; Estimated Glomerular Filt Rate 49; Glucose 100 mg/dL (65-110); Magnesium 2.4 mg/dL (1.6-2.3); Potassium 3.9 mmol/L (3.4-5.0); Sodium 139 mmol/L (137-145)
[2024-11-26 10:38] LABS: Basophils Percent Auto 0.3 % (0.2-1.2); Eosinophils Absolute Auto 0.2 K/mm3 (0-0.3); Hematocrit 45.6 % (37.0-47.0); Hemoglobin 14.4 g/dL (12.0-15.0); Immature Granulocyte Absolute 0.09 K/mm3 (0.00-0.031); Immature Granulocyte Percent A 0.9 % (0-0.5); Lymphocytes Absolute Auto 2.52 K/mm3 (0.9-3.2); Lymphocytes Percent Auto 25.7 % (18.3-44.2); Mean Corpuscular HGB Conc 31.6 g/dl (32-36); Mean Corpuscular Hemoglobin 32.1 pg (26-34); Mean Corpuscular Volume 101.6 fl (80-100); Mean Platelet Volume 10.2 fl (7.4-10.4); Monocytes Absolute Auto 0.7 K/mm3 (0.1-0.6); Monocytes Percent Auto 7.2 % (2.6-8.5); Neutrophils Absolute Auto 6.3 K/mm3 (1.3-6.7); Neutrophils Percent Auto 63.9 % (45.5-73.1); Platelet Count Result 207 k/mm3 (150-375); Red Blood Count 4.49 M/mm3 (4.2-5.4); Red Cell Distribution Width 13.9 % (11.5-14.5); White Blood Count 9.8 K/mm3 (4.5-10.0)
[2024-11-26] MEDS: FLUTICASONE/SALMETEROL 115-21 MCG INHALER 1 PUFF 2 PUFF INHALATION (10:49)
--- NOTE | 2024-11-26 11:20 | P.CONPL_ITS ---
Assessment and Plan Assessment and plan (1) Chronic obstructive pulmonary disease: Code(s): J44.9 - Chronic obstructive pulmonary disease, unspecified Status: Acute Assessment and Plan: Patient tells me she smoked 1 pack for day from age 16 to recently and currently is smoking half a pack. Total 48 pack years. I have no no PFTs Patient tells me she quit on 11/23/2024. CT scan of the chest 11/10/2024 with moderate apical predominant centrilobular emphysema. She is exposed to no secondhand smoke. She has no occupational exposures. Collectively they tell me on a good day she can walk half a block. One year ago she could walk 3 block. She was prescribed home oxygen approximately 1 year ago but only uses it sporadically at night at 2 L NC. Maintained on Advair 115-21 at 2 puffs b.i.d. and Incruse Ellipta 62.5 for many years. currently the patient complains of dyspnea on exertion, tachycardic episodes, anxiety episodes, with no change in her chronic phlegm of 1 time a day, no change in the color of her phlegm which is clear, and no significant change in her dyspnea on exertion. She has intermittent wheezing. plan: The patient does not have typical symptoms of COPD exacerbation. Given her reported tachycardic episodes I will discontinue all beta agonists and attempt to control her with ipratropium nebulizers 0.5 mg q.4 hours and budesonide nebulizers 0.5 mg Q 12 hours. I do not feel she needs systemic steroids at this time. She has no infectious complaints and I do not feel she needs antibiotics. Agree with CT angiogram of the chest to exclude PE. Patient will have an echocardiogram. Patient is being monitored on telemetry for tachyarrhythmias. Discussed with Dr. Valverde, will follow with you. (2) Tachycardia: Code(s): R00.0 - Tachycardia, unspecified Status: Acute Assessment and Plan: At rest her heart rate was 95. Patient then walked to the bathroom on room air and her saturations remain 93 and her heart rate increased to 100. I then walked the patient in the hallway on room air. We walked for a total of about 2-1/2 minutes and I watched her quality assurance monitor continuously. After approximately 1 minute she said that she was starting to feel short of breath. Her heart rate was 110 and her saturations were 91. We continued to walk and then she said she was short of breath and she rated this at a scale of 6/10 and her heart rate was 110 and her saturations were 91. We walked for a total of 2- 1/2 minutes. She then sat in the bed and after 15 seconds her shortness of breath decreased from a 6/10 to 4/10 with a heart rate of 104 and a saturations 91. After another 15 seconds she decreased to 3/10 with a heart rate of 101 and a saturation of 92. After another 15 seconds she was a at a 1/10 with her shortness of breath and her heart rate was 99 with a saturation of 94. She had no audible wheezing during this activity. Plan: Current walking limited by dyspnea on exertion rather than tachycardia or anxiety. Currently patient with sinus tachycardia and no documented alternative arrhythmia. Will discontinue all beta agonists to see if this is contributing to tachyarrhythmias. Continue metoprolol 25 mg p.o. b.i.d. per motorcycle racer and hospitalist team. (3) Anxiety: Code(s): F41.9 - Anxiety disorder, unspecified Status: Acute Assessment and Plan: Patient was started on BuSpar 10 mg q.12 hours during her hospitalization on 11/10/2024 and feels this is helping. Plan: Will discuss with hospitalist about a higher dose of BuSpar. History of Present Illness History of Present Illness Consult date: 11/26/24 Chief complaint: dehydration,tachycardia Narrative: 11/26/2024: This is a new pulmonary consult for COPD exacerbation. 64-year-old with a history of asthma and COPD, tobacco use, anxiety. Patient was seen by myself for COPD exacerbation during hospitalization from 11/10/2024 through 11/11/2024. I had no PFTs. CT scan of the chest 11/10/2024 with moderate apical predominant centrilobular emphysema. She was smoking half a pack a cigarettes a day. She was treated with BiPAP, steroids, bronchodilators and Levaquin. ABG on the day of discharge was 7.44/35/58 on room air. She was discharged on prednisone 40 x 3 days, Levaquin 750 x 5 days, Advair 115-21 at 2 puffs b.i.d., Incruse Ellipta 62.5 at 1 puff q.day albuterol rescue. For her anxiety she was started on BuSpar 10 p.o. b.i.d. Discharged on 2 L nasal cannula with rest, with activity and at night. No home O2 sessile was performed. Patient tells me she smoked 1 pack for day from age 16 to recently and currently is smoking half a pack. 48 pack years. She is exposed to no secondhand smoke. She has no occupational exposures. Collectively they tell me on a good day she can walk half a block. One year ago she could walk 3 block. She was prescribed home oxygen approximately 1 year ago but only uses it sporadically at night at 2 L NC. Maintained on Advair 115-21 at 2 puffs b.i.d. and Incruse Ellipta 62.5 for many years. 11/17/2024 through 11/20/2024: Patient admitted to the hospital with shortness of breath. Recently finished her antibiotics but was still short of breath with dyspnea on exertion and a heart rate to the 140s. she continued to have palpitations and sinus tachy with activity. She was treated for COPD exacerbation with steroids, possible pneumonia with ceftriaxone and doxycycline. Discharged on prednisone 40 mg a day for 5 days and levofloxacin 750 mg for 5 days. To continue her Advair 115-21 at 2 puffs b.i.d., Incruse Ellipta 62.5 at 1 puff q.day, rescue DuoNebs, rescue albuterol. 11/23/2024 through 11/24/2024: Admitted to [facility] with tachycardia and palpitations. Last night had a heart rate of 160-170. Worse with ambulation. Lungs were clear. Heart rate was 95. Room air saturations 94%. Patient was admitted. Cardiology consult obtained and patient's telemetry showed sinus tachycardia and her metoprolol was increased to 25 b.i.d.. Smoking cessation was provided. Discharged on Advair 115-21 2 puffs b.i.d., Incruse Ellipta 1 puff q.day, Levaquin for 5 days. Metoprolol 25 p.o. b.i.d.. To have a Holter monitor. TSH 3.70. BNP 2880. On 11/25/2024 the patient woke up and had no respiratory issues While sitting. She had a little short shortness of breath when walking. she complains of having episodes that occur sometimes at rest but usually with walking with shortness of breath, fast heart rate and anxiety. She has a hard time telling which comes 1st but says usually her heart rate goes up to 130 sometimes sitting and 145 walking and then she gets short of breath and then anxious. She does not notice active wheezing with these episodes. 11/25/2024: Patient presented to the emergency room with a complaint of fast heart rate, palpitations. Patient notes tachycardia, shortness of breath and anxiety. Patient had mild tachypnea with clear breath sounds. She was tachycardic at 1:33 a.m.. Room air saturations 93%. Blood pressure 116/70. Afebrile. White blood cell count 11.2, eosinophils 1.7%. Creatinine 1.20, Hemoglobin 16.2, hematocrit 50.2. Troponin negative. Chest x-ray no acute changes. She was anxious and tearful. She was given 2 L the LR. 11/26/24: The patient tells me she has had no cough, no fever, no chills, no rigors no hemoptysis. She has had her usual phlegm production of 1 time a day with she is clear. She has no change in her phlegm and no wheezing or changes in her respiratory status over the last 2 days. Her last use of rescue albuterol was on 11/24 and this helped her breathe. She takes rescue albuterol 1 to 2 times a week at baseline. Currently the patient is on room air with saturations 94%. She is afebrile. White blood cell count 9.8, creatinine 1.11. At rest her heart rate was 95. Patient then walked to the bathroom on room air and her saturations remain 93 and her heart rate increased to 100. I then walked the patient in the hallway on room air. We walked for a total of about 2-1/2 minutes and I watched her quality assurance monitor continuously. After approximately 1 minute she said that she was starting to feel short of breath. Her heart rate was 110 and her saturations were 91. We continued to walk and then she said she was short of breath and she rated this at a scale of 6/10 and her heart rate was 110 and her saturations were 91. We walked for a total of 2- 1/2 minutes. She then sat in the bed and after 15 seconds her shortness of breath decreased from a 6/10 to 4/10 with a heart rate of 104 and a saturations 91. After another 15 seconds she decreased to 3/10 with a heart rate of 101 and a saturation of 92. After another 15 seconds she was a at a 1/10 with her shortness of breath and her heart rate was 99 with a saturation of 94. She had no audible wheezing during this activity. At home she is telling me that when she walks across the room sometimes her heart rate will get to 145. DATA 11/23/24: Echo Summary 1. Technically difficult study with poorly visualized views. 2. Overall preserved biventricular systolic function. Left Ventricle The left ventricle is normal in size and systolic function. The left ventricular ejection fraction is visually estimated to be 60-65%. Right Ventricle The right ventricle is normal in size and systolic function. Left Atria The left atrium is normal size. Right Atria The right atrium is normal size. no RVSP Calculated 11/10/24; CT diagnostic chest wo con Ordering provider: Parish Ragsdale MD History: 64 years Female with . COPD . Comparison: None. Technique: CT chest without IV contrast. Radiation reduction technique utilized.The dose-length product was 365.56 mGy- cm. FINDINGS: VISUALIZED THORACIC INLET: Normal. Retropharyngeal carotid arteries. MEDIASTINUM: Aorta/coronary arteries: Mild atheromatous disease. Heart/other: The heart is not enlarged. Lymph nodes: No mediastinal or hilar adenopathy. LUNGS: Underlying emphysematous changes. No pulmonary nodules or masses. No infiltrates or effusions. No pneumothorax. Atelectasis versus focal pneumonia is seen in the right upper lobe. VISUALIZED UPPER ABDOMEN: Right kidney small cyst measuring 1.8 cm. Status post cholecystectomy. Otherwise, the visualized upper abdomen is normal. MUSCULOSKELETAL: Soft tissues: The superficial soft tissues are normal. Bones: Age appropriate degenerative changes of the spine. Burst fracture is seen in T6 which may be acute or chronic. MRI evaluation advised. IMPRESSION: 1. Focal area of atelectasis versus pneumonia in the right upper lobe anteriorly. Otherwise, No evidence of pneumonia or pneumothorax. 2. Underlying emphysematous changes. 3. Burst fracture of T6. MRI is advised. Review of Systems 2 Constitutional: Constitutional: Reports no additional constitutional complaints Eyes: Eyes: Reports no additional eye complaints ENT: Reports system reviewed and no additional complaints, except as documented Cardiovascular: Cardiovascular: Reports no additional cardiovascular complaints Respiratory: Respiratory: Reports no additional respiratory complaints Gastrointestinal: Gastrointestinal: Reports no additional gastrointestinal complaints Musculoskeletal: Musculoskeletal: Reports no additional musculoskeletal complaints Neurologic: Reports system reviewed and no additional complaints, except as documented Psychiatric: Psychiatric: Reports no additional psychiatric complaints Endocrine: Endocrine: Reports no additional endocrine complaints Hematologic/Lymphatic: Hematologic/Lymphatic: Reports no additional hematologic/lymphatic complaints Allergic/Immunologic: Allergic/Immunologic: Reports no additional allergic/immunologic complaints [facility] Past Medical History Medical History Tobacco abuse Chronic obstructive pulmonary disease Coronary artery disease (10/2023) Nuclear stress test showed a large, severe non reversible infarcts including multiple meyers of the apex and mid anterior and mid posterior segments consistent with infarct with no reversible ischemia. Surgical History Surgical History History of section Family History Family History Mother Cerebrovascular accident Sibling FH: CABG (coronary artery bypass surgery) Father Stented coronary artery Social History Social History Social History: Surrogate medical decision maker: Meghan Babcock, daughter. Code status: Full code. Smoking packs per day: 0.5 Smoking cigarettes per day: 10.0 Years smoked: 40 Smoking pack-years: 20.00 Smoking status: Current some day smoker Tobacco type: cigarettes Second hand tobacco smoke exposure: Yes Alcohol intake: former Drinks per week: 28 Substance use: never Substance use type: does not use Last use: 10/11/24 Do You Feel Safe in your Home?: Yes Lack of Transportation: No Lack of Food: Never True Current Housing: I Have Housing Concerned About Future Housing: No Difficulty Paying Gas/Electric Bills: No Difficulty Paying for Meds: No Currently Unemployed: No Education: High School Diploma/GED Difficulty w/ Childcare or Family Care: No Living arrangements: with family Spiritual care concerns: No Meds Home Medications and Allergies Home Medications ?Medication ?Instructions ?Recorded ?Confirmed ?Type albuterol sulfate 90 mcg/actuation 2 puff inhalation TID PRN 10/26/23 11/26/24 History aerosol inhaler Shortness Of Breath Or Wheezing fluticasone propionate 115 2 puff inhalation BID 10/26/23 11/26/24 History mcg-salmeterol 21 mcg/actuation HFA inhaler (Advair HFA) umeclidinium 62.5 mcg/actuation 1 inh inhalation DAILY 10/26/23 11/26/24 History blister powder for inhalation (Incruse Ellipta) nitroglycerin 0.4 mg sublingual 0.4 mg sublingual Q5MIN PRN Chest 10/28/23 11/26/24 Rx tablet (Nitrostat) Pain #10 tabs buspirone 10 mg tablet 10 mg PO Q12HR #60 tabs 11/11/24 11/26/24 Rx ipratropium 0.5 mg-albuterol 3 mg 3 ml inhalation Q6HRT PRN 11/17/24 11/26/24 History (2.5 mg base)/3 mL nebulization shortness of breath soln aspirin 81 mg chewable tablet 81 mg PO DAILY@0800 #30 tabs 11/24/24 11/26/24 Rx (Children's Aspirin) metoprolol succinate 25 mg 25 mg PO BID #30 tabs 11/24/24 11/26/24 Rx tablet,extended release 24 hr (Toprol XL) nicotine 21 mg/24 hr daily 1 patch transdermal DAILY #14 ea 11/24/24 11/26/24 Rx transdermal patch (Nicoderm CQ) rosuvastatin 20 mg tablet 20 mg PO EVENING #30 tabs 11/24/24 11/26/24 Rx Allergies Allergy/AdvReac Type Severity Reaction Status Date / Time codeine AdvReac Itching Verified 11/23/24 10:50 Vital Signs Vital Signs - 24 hr 11/25/24 21:59 11/26/24 03:31 11/26/24 03:57 Temperature 36.8 C Pulse Rate 133 H 96 Respiratory Rate 26 H Blood Pressure 116/79 Pulse Oximetry 93 93 Oxygen Delivery Room Air Room Air Fraction of Inspired Oxygen 11/26/24 03:58 11/26/24 07:28 11/26/24 10:49 Temperature Pulse Rate 90 80 Respiratory Rate 21 H 12 Blood Pressure 157/93 H Pulse Oximetry 93 97 94 Oxygen Delivery Room Air Fraction of Inspired Oxygen 21 11/26/24 10:49 Temperature Pulse Rate 88 Respiratory Rate 20 Blood Pressure Pulse Oximetry Oxygen Delivery Fraction of Inspired Oxygen Exam 2 Const: General: cooperative, healthy appearing and comfortable O rientation/consciousness: oriented to person, oriented to place and oriented to time HENMT: Head: normal to inspection Ears: hearing grossly normal bilaterally Eyes: General: appearance normal, both eyes and all related structures Neck: Neck: normal visual inspection Chest: Chest palpation & inspection: normal inspection of the chest Resp: Effort & Inspection: normal respiratory effort and able to speak in complete sentences Auscultation: no crackles, no rales, no rhonchi, no wheezes and lung sounds not diminished Other: Few end-expiratory wheezes that cleared with coughing. While she exercise she had no wheezing. Cardio: Jugular venous distension: no JVD GI: Inspection: normal to inspection GI Palp: No abdominal tenderness Skin: General skin exam: normal color Neuro: General: oriented to person, oriented to place and oriented to time Extrem: General: normal to inspection Psych: Appearance: grossly normal Results Laboratory Findings 11/26/24 10:33 11/26/24 05:29 Abnormal lab findings: Abnormal Labs 11/25/24 11/26/24 11/26/24 22:16 05:29 10:33 WBC 11.2 H Hgb 16.2 H Hct 50.2 H MCV 101.6 H MCHC 31.6 L Immature Gran % (Auto) 0.7 H 0.9 H Lymph # (Auto) 3.31 H Forrest # (Auto) 0.8 H 0.7 H Abs Immat Gran (auto) 0.08 H 0.09 H Absolute Neuts (auto) 6.8 H BUN 21 H 23 H Creatinine 1.20 H 1.11 H Estimated GFR 45 L 49 L Glucose 121 H Magnesium 2.4 H AST 40 H ALT 64 H 62 H Diagnostic Findings Additional studies: ITS Impressions Chest X-Ray 11/25/24 23:01 IMPRESSION: No acute cardiopulmonary pathology.
[2024-11-26] MEDS: METOPROLOL SUCCINATE EXT REL 25 MG TABCR PO ×2 (11:29→16:21)
[2024-11-26] MEDS: ASPIRIN 81 MG CHEWABLE TABLET PO (11:29)
[2024-11-26] MEDS: busPIRone HCL 10 MG TABLET PO ×2 (11:29→21:36)
[2024-11-26] MEDS: NICOTINE (*PBKC) 21 MG PATCH 1 PATCH TRANSDERM (11:30)
[2024-11-26 11:41] LABS: NT Pro B Type Natriuretic Pept 356 pg/mL (19.9-100)
[2024-11-26] MEDS: IPRATROPIUM BR 0.02% INH SOLN 0.5 MG/2.5 ML VIAL INHALATION ×2 (15:07→20:14)
[2024-11-26] MEDS: ROSUVASTATIN 20 MG TABLET PO (17:49)
[2024-11-26] MEDS: BUDESONIDE RESPULE NEB 0.5 MG/2 ML AMP INHALATION (20:14)
[2024-11-27] VITALS (18 sets, daily range): BP systolic 97–113; BP diastolic 48–60; PULSE 64–84; RESP 16–20; TEMP 36.3–36.5; O2SAT 91–98
[2024-11-27] MEDS: IPRATROPIUM BR 0.02% INH SOLN 0.5 MG/2.5 ML VIAL INHALATION ×5 (00:34→20:07)
--- NOTE | 2024-11-27 00:34 | PCRCNOTE ---
Patient is having apnea link testing. Breathing treatments listed will be omitted: 0000 and 0400
[2024-11-27] MEDS: busPIRone HCL 10 MG TABLET PO ×3 (05:59→21:53)
[2024-11-27 06:37] LABS: Basophils Percent Auto 0.5 % (0.2-1.2); Eosinophils Absolute Auto 0.3 K/mm3 (0-0.3); Eosinophils Percent Auto 3.5 % (0-4.4); Hematocrit 47.5 % (37.0-47.0); Hemoglobin 14.9 g/dL (12.0-15.0); Immature Granulocyte Absolute 0.05 K/mm3 (0.00-0.031); Immature Granulocyte Percent A 0.6 % (0-0.5); Lymphocytes Absolute Auto 1.95 K/mm3 (0.9-3.2); Lymphocytes Percent Auto 23.8 % (18.3-44.2); Mean Corpuscular HGB Conc 31.4 g/dl (32-36); Mean Corpuscular Hemoglobin 32.7 pg (26-34); Mean Corpuscular Volume 104.2 fl (80-100); Mean Platelet Volume 10.4 fl (7.4-10.4); Monocytes Absolute Auto 0.5 K/mm3 (0.1-0.6); Monocytes Percent Auto 6.2 % (2.6-8.5); Neutrophils Absolute Auto 5.3 K/mm3 (1.3-6.7); Neutrophils Percent Auto 65.4 % (45.5-73.1); Platelet Count Result 182 k/mm3 (150-375); Red Blood Count 4.56 M/mm3 (4.2-5.4); Red Cell Distribution Width 13.9 % (11.5-14.5); White Blood Count 8.2 K/mm3 (4.5-10.0)
[2024-11-27 06:43] LABS: Alanine Aminotransferase 45 U/L (6-35); Albumin Level 3.1 g/dL (3.5-5.1); Alkaline Phosphatase 36 U/L (38-126); Anion Gap 4 mmol/L (4-12); Aspartate Amino Transferase 29 U/L (14-36); Bilirubin,Total 0.6 mg/dL (0.2-1.3); Blood Urea Nitrogen 14 mg/dL (7-17); Calcium 8.4 mg/dL (8.4-10.2); Carbon Dioxide 26 mmol/L (22-30); Chloride 107 mmol/L (98-107); Estimated CRCL calculation 61 ml/min; Estimated Glomerular Filt Rate > 60; Glucose 92 mg/dL (65-110); Magnesium 2.4 mg/dL (1.6-2.3); Potassium 4.1 mmol/L (3.4-5.0); Sodium 137 mmol/L (137-145)
[2024-11-27] MEDS: BUDESONIDE RESPULE NEB 0.5 MG/2 ML AMP INHALATION ×2 (07:48→20:06)
[2024-11-27 09:23] LABS: Free T4 Free Thyroxine 1.55 ng/dL (0.78-2.19)
[2024-11-27] MEDS: ASPIRIN 81 MG CHEWABLE TABLET PO (09:37)
[2024-11-27] MEDS: METOPROLOL SUCCINATE EXT REL 25 MG TABCR PO (09:38)
[2024-11-27] MEDS: ENOXAPARIN 40 MG/0.4 ML SYRINGE SUB-Q (09:38)
[2024-11-27] MEDS: NICOTINE (*PBKC) 21 MG PATCH 1 PATCH TRANSDERM (09:38)
--- NOTE | 2024-11-27 10:11 | PM.PNCARD ---
Progress Note: A&P Assessment and Plan (1) Palpitations: Code(s): R00.2 - Palpitations Status: Acute Assessment and Plan: She does have some SVT which appears to be in atrial tachycardia. Cardiac workup recently has been completely unremarkable including an echocardiogram. EKG is also non concerning. She also has a catheterization from less than a year ago which shows minimal coronary disease. Will DC metoprolol and use diltiazem. This may be better SVT management/tachycardia and given underlying COPD, will avoid the beta-idalia. (2) COPD with exacerbation: Code(s): J44.1 - Chronic obstructive pulmonary disease with (acute) exacerbation Status: Acute Assessment and Plan: She needs a pulmonology evaluation and better treatment as I believe that this is ultimately the cause of her recurrent admissions and recent issues. Will consult Dr. Ragsdale (3) Suspected sleep apnea: Code(s): R29.818 - Other symptoms and signs involving the nervous system Status: Acute (4) Tobacco abuse: Code(s): Z72.0 - Tobacco use Status: Acute Assessment and Plan: Needs to stop and advised to quit (5) CAD (coronary artery disease): Code(s): I25.10 - Atherosclerotic heart disease of [place] coronary artery without angina pectoris Status: Acute Assessment and Plan: She has minimal coronary disease by catheterization in December of 2023. This is not likely to be angina. EKG is unremarkable. Recommend to continue rosuvastatin, metoprolol and aspirin. Because of her ongoing dyspnea with exertion symptoms, keep NPO for Lexiscan myocardial perfusion study tomorrow. It is unlikely that she has significant obstructive CAD however (6) SVT (supraventricular tachycardia): Code(s): I47.10 - Supraventricular tachycardia, unspecified Status: Acute Assessment and Plan: Appears to be atrial tachycardia. Plan as above. Transition from metoprolol to diltiazem Subjective Date/time seen: 11/27/24 10:11 Interval history: 64-year-old with exertional shortness of breath and palpitations. Follow-up on 11/27/2024: Did have some salvos of atrial tachycardia with heart rates in the 110s. She was symptomatic. She was also mildly tachycardic by getting up and simply walking around. No arrhythmia though by doing so. She was also short of breath with activity. No syncope, chest pain Review of Systems Review of Systems: All systems reviewed & are unremarkable except as noted in HPI and below Constitutional: Constitutional: Denies body ache(s) and Denies excessive sweating Eyes: Eyes: Denies blurry vision ENT: Reports Normal hearing present Cardiovascular: Cardiovascular: Denies chest pain, Reports palpitations and Reports dyspnea Respiratory: Respiratory: Reports dyspnea Gastrointestinal: Gastrointestinal: Denies abdominal pain Genitourinary: Genitourinary: Denies hematuria Musculoskeletal: Musculoskeletal: Denies back pain Integumentary/Breasts: Skin/Breast: Denies dry skin Neurologic: Reports Normal hearing present and Denies Abnormal speech present Psychiatric: Psychiatric: Reports anxiety Endocrine: Endocrine: Denies excessive sweating and Reports palpitations Hematologic/Lymphatic: Hematologic/Lymphatic: Denies easy bleeding Allergic/Immunologic: Allergic/Immunologic: Denies GI upset with certain foods Exam Narrative: Awake alert oriented a bit anxious but appears stated age Const: General: comfortable and no acute distress HENMT: Face/Nose/Sinus: Normal nares present Mouth: Yes moist mucous membranes Eyes: General: appearance normal, both eyes and all related structures Sclera: sclerae normal Neck: Neck: supple and no JVD Chest: Other: No reproducible chest wall pain to palpation Resp: Auscultation: rhonchi, wheezes and diminished lung sounds Cardio: Rate: regular rate Rhythm: regular rhythm Heart sounds: no murmurs GI: Inspection: non-distended Auscultation: normal bowel sounds Skin: General skin exam: normal color Neuro: Cranial nerves: Yes Normal hearing present Speech: normal speech and No Abnormal speech present Extrem: General: normal to inspection Psych: Mental Status: mental status grossly normal Affect: normal affect Objective Data Vital Signs Vital Signs: Vital Signs - 24 hr 11/26/24 10:49 11/26/24 10:49 11/26/24 11:29 Temperature Pulse Rate 88 84 Respiratory Rate 20 Blood Pressure Pulse Oximetry 94 Oxygen Delivery Room Air Fraction of Inspired Oxygen 11/26/24 12:00 11/26/24 14:00 11/26/24 15:07 Temperature Pulse Rate 106 H 80 Respiratory Rate Blood Pressure 108/67 Pulse Oximetry 94 93 Oxygen Delivery Room Air Fraction of Inspired Oxygen 11/26/24 15:07 11/26/24 15:17 11/26/24 16:00 Temperature Pulse Rate 112 H 115 H 125 H Respiratory Rate 20 20 Blood Pressure Pulse Oximetry Oxygen Delivery Fraction of Inspired Oxygen 11/26/24 16:21 11/26/24 19:53 11/26/24 20:00 Temperature 36.4 C L Pulse Rate 132 H 81 90 Respiratory Rate 16 16 Blood Pressure 118/47 L Pulse Oximetry 96 95 Oxygen Delivery Room Air Fraction of Inspired Oxygen 11/26/24 20:00 11/26/24 20:14 11/26/24 20:25 Temperature Pulse Rate 90 77 77 Respiratory Rate 16 16 Blood Pressure Pulse Oximetry Oxygen Delivery Fraction of Inspired Oxygen 11/27/24 00:00 11/27/24 04:00 11/27/24 06:00 Temperature 36.3 C L Pulse Rate 67 80 71 Respiratory Rate 16 Blood Pressure 112/60 Pulse Oximetry 96 Oxygen Delivery Fraction of Inspired Oxygen 11/27/24 07:50 11/27/24 07:50 11/27/24 08:01 Temperature Pulse Rate 75 64 Respiratory Rate 20 20 Blood Pressure Pulse Oximetry 94 Oxygen Delivery Room Air Fraction of Inspired Oxygen 11/27/24 09:38 Temperature Pulse Rate 84 Respiratory Rate Blood Pressure Pulse Oximetry Oxygen Delivery Fraction of Inspired Oxygen Intake/Output Intake/Output: Intake & Output 11/24/24 11/25/24 11/26/24 11/27/24 23:59 23:59 23:59 23:59 Intake Total 1969 590 Balance 1969 590 Meds/Results Medications: Active Medications Generic Name Dose Route Start Last Admin Trade Name Freq PRN Reason Stop Dose Admin Aspirin 81 mg 11/26/24 08:00 11/27/24 09:37 Aspirin 81 Mg Chewable Tablet PO 81 mg DAILY@0800 [facility] Administration Budesonide 0.5 mg 11/26/24 20:00 11/27/24 07:48 Budesonide Respule Neb 0.5 Mg/2 Ml Amp INHALATION 0.5 mg Q12HRT EMILY Administration Buspirone HCl 10 mg 11/26/24 22:00 11/27/24 05:59 Buspirone Hcl 10 Mg Tablet PO 10 mg Q8HR EMILY Administration Enoxaparin Sodium 40 mg 11/27/24 09:00 11/27/24 09:38 Enoxaparin 40 Mg/0.4 Ml Syringe SUB-Q 40 mg DAILY EMILY Administration Ipratropium [place] 0.5 mg 11/26/24 16:00 11/27/24 07:48 Ipratropium Br 0.02% Inh Soln 0.5 Mg/2.5 Ml Vial INHALATION 0.5 mg Q4HRT EMILY Administration Metoprolol Succinate 25 mg 11/26/24 09:00 11/27/24 09:38 Metoprolol Succinate Ext Rel 25 Mg Tabcr PO 25 mg BID EMILY Administration Nicotine 1 patch 11/26/24 09:00 11/27/24 09:38 Nicotine (*Pbkc) 21 Mg Patch TRANSDERM 1 patch DAILY EMILY Administration Nitroglycerin 0.4 mg 11/26/24 09:52 Nitroglycerin Sl 0.4 Mg Tablet SUBLINGUAL Q5MIN PRN Chest Pain Perflutren Lipid Microsphere 0 ml 11/26/24 11:25 Perflutren Lipid Microspheres 1.5 Ml Vial Diluted To 10 Ml Total Volume IV PUSH 11/29/24 11:25 ONCE PRN adequate visualization Protocol Rosuvastatin Calcium 20 mg 11/26/24 18:00 11/26/24 17:49 Rosuvastatin 20 Mg Tablet PO 20 mg EVENING EMILY Administration Radiology Results: ITS Impressions Chest X-Ray 11/25/24 23:01 IMPRESSION: No acute cardiopulmonary pathology. Chest CTA 11/26/24 18:42 IMPRESSION: 1. No pulmonary embolism. 2. No acute cardiopulmonary pathology. 3. Focal area of atelectasis versus pneumonia versus nodule seen anteriorly in the right upper lobe measuring 1.1 x 1.2x1.4 cm. 4. Compression fracture in the T6 vertebra. Labs Labs: Laboratory Results - last 24 hr 11/26/24 11/26/24 11/27/24 05:29 10:33 06:23 WBC 9.8 8.2 RBC 4.49 4.56 Hgb 14.4 14.9 Hct 45.6 47.5 H MCV 101.6 H 104.2 H MCH 32.1 32.7 MCHC 31.6 L 31.4 L RDW 13.9 13.9 Plt Count 207 182 MPV 10.2 10.4 Immature Gran % (Auto) 0.9 H 0.6 H Neut % (Auto) 63.9 65.4 Lymph % (Auto) 25.7 23.8 [place] % (Auto) 7.2 6.2 Eos % (Auto) 2.0 3.5 Baso % (Auto) 0.3 0.5 Lymph # (Auto) 2.52 1.95 [place] # (Auto) 0.7 H 0.5 Eos # (Auto) 0.2 0.3 Baso # (Auto) 0.0 0.0 Abs Immat Gran (auto) 0.09 H 0.05 H Absolute Neuts (auto) 6.3 5.3 Absolute Nucleated RBC 0.000 0.000 Nucleated RBC % 0.0 0.0 Sodium 139 137 Potassium 3.9 4.1 Chloride 106 107 Carbon Dioxide 23 26 Anion Gap 10 4 BUN 23 H 14 D Creatinine 1.11 H 0.90 Estim Creat Clear Calc 50 61 Estimated GFR 49 L > 60 Glucose 100 92 Calcium 9.5 8.4 Magnesium 2.4 H 2.4 H Total Bilirubin 0.8 0.6 AST 40 H 29 ALT 62 H 45 H Alkaline Phosphatase 44 36 L NT-Pro-B Natriuret Pep 356 H Total Protein 7.0 5.0 L Albumin 4.2 3.1 L TSH 2.690 Free T4 1.55
--- NOTE | 2024-11-27 10:12 | P.PNIM_ITS ---
Progress Note: A&P Assessment and Plan (1) Anxiety: Code(s): F41.9 - Anxiety disorder, unspecified Status: Acute (2) Coronary artery disease: Onset Date: 10/2023 Code(s): I25.10 - Atherosclerotic heart disease of [place] coronary artery without angina pectoris Status: Acute (3) Tachycardia: Code(s): R00.0 - Tachycardia, unspecified Status: Acute (4) Palpitations: Code(s): R00.2 - Palpitations Status: Acute (5) Chronic obstructive pulmonary disease: Code(s): J44.9 - Chronic obstructive pulmonary disease, unspecified Status: Acute Plan 64-year-old female with history of coronary disease, COPD, anxiety, grade 1 diastolic dysfunction and recent hospitalizations multiple times since the beginning of this month. Patient presents to the emergency room with complaints of palpitations and elevated heart rate within the heart rates in the 160s and 170s with activity. She endorses shortness of breath when this happens. She has been evaluated and admitted to the hospital multiple times this month for similar and discharged home with a Holter monitor which she did 2 days ago. She turned in the Holter monitor yesterday after 24 observation and came to the ER as she was having palpitations and noted that her heart rate was in the 170s. S he endorses pain in her chest when this happens and severe anxiety. She has been evaluated multiple times by Cardiology with recommendations for upping her metoprolol and will follow up with her on outpatient basis but this did not happen yet as she returned to the emergency department almost immediately. In the ER patient was tachycardic in 130s otherwise vitals were stable. Laboratory studies revealed WBC of 11.2 hematocrit 50 16 platelet 272 Chem panel with normal electrolytes creatinine 1.2 blood sugar was 121. Renal function slightly elevated from her baseline. Troponin was negative. LFTs were normal. She received 2 L of LR in the ER. BNP was elevated at 2880 recent admission EKG with sinus tachycardia. Chest x-ray with no acute cardiopulmonary abnormality. She is admitted in the setting for further observation. She reports that she gets tachycardic whenever she exerts. Nonobstructive coronary artery disease by catheterization January of 2024 COPD on home oxygen 2 L at baseline. Possible COPD exacerbation. Mild wheezing. Due to CT to further evaluate due to ongoing tachycardia with exertion. Recent echocardiogram normal EF. Valves were not well visualized. Will get repeat echocardiogram to check her valves. Holter monitor was recently done which is yet to be reviewed. Continue to monitor on telemetry Tobacco abuse Grade 1 diastolic dysfunction echo 11/23/2024 with EF 60-65% valves were not well visualized Anxiety disorder on buspirone Possible sleep apnea will do apnea link at night DVT prophylaxis Lovenox Code status full code Subjective Date/time seen: 11/27/24 10:12 Interval history: Comfortable at bedside Review of Systems Review of Systems: - CONSTITUTIONAL: Denies weight loss, fe mattie and chills. - HEENT: Denies changes in vision and he aring - RESPIRATORY: Reports SOB and minimal cough. - CV: Denies palpitations and CP. - GI: Denies abdominal pain, nausea, vom iting and diarrhea. - : Denies dysuria and urinary frequen cy. - MSK: Denies myalgia and joint pain. - SKIN: Denies rash and pruritus. - NEUROLOGICAL: Denies headache and sync ope. - PSYCHIATRIC: Denies recent changes in mood. Denies anxiety and depression. Exam Narrative: GENERAL: Morbidly obese, not in acute distress HEAD: [Normocephalic, atraumatic.] EYES: [PERRLA and EOMI.] ENT: Nares clear, no rhinorrhea or epistaxis. Mucous membranes moist. NECK: Supple. CHEST: Mild tachypnea but no respiratory distress, mild end-expiratory wheeze HEART: Regular rate with regular rhythm. No murmur heard. [Normal peripheral pulses.] ABDOMEN: [Soft, nondistended], [nontender], [No rigidity or guarding] EXTREMITIES: Normal range of motion. [No edema.] SKIN: Warm, dry, no rash. NEURO: [No focal deficits]. Alert and oriented [x3.] PSYCH: [Normal mood and affect.] Objective Data Vital Signs Vital Signs: Vital Signs - 24 hr 11/26/24 10:49 11/26/24 10:49 11/26/24 11:29 Temperature Pulse Rate 88 84 Respiratory Rate 20 Blood Pressure Pulse Oximetry 94 Oxygen Delivery Room Air Fraction of Inspired Oxygen 21 11/26/24 12:00 11/26/24 14:00 11/26/24 15:07 Temperature Pulse Rate 106 H 80 Respiratory Rate Blood Pressure 108/67 Pulse Oximetry 94 93 Oxygen Delivery Room Air Fraction of Inspired Oxygen 21 11/26/24 15:07 11/26/24 15:17 11/26/24 16:00 Temperature Pulse Rate 112 H 115 H 125 H Respiratory Rate 20 20 Blood Pressure Pulse Oximetry Oxygen Delivery Fraction of Inspired Oxygen 11/26/24 16:21 11/26/24 19:53 11/26/24 20:00 Temperature 97.5 F L Pulse Rate 132 H 81 90 Respiratory Rate 16 16 Blood Pressure 118/47 L Pulse Oximetry 96 95 Oxygen Delivery Room Air Fraction of Inspired Oxygen 11/26/24 20:00 11/26/24 20:14 11/26/24 20:25 Temperature Pulse Rate 90 77 77 Respiratory Rate 16 16 Blood Pressure Pulse Oximetry Oxygen Delivery Fraction of Inspired Oxygen 11/27/24 00:00 11/27/24 04:00 11/27/24 06:00 Temperature 97.4 F L Pulse Rate 67 80 71 Respiratory Rate 16 Blood Pressure 112/60 Pulse Oximetry 96 Oxygen Delivery Fraction of Inspired Oxygen 11/27/24 07:50 11/27/24 07:50 11/27/24 08:01 Temperature Pulse Rate 75 64 Respiratory Rate 20 20 Blood Pressure Pulse Oximetry 94 Oxygen Delivery Room Air Fraction of Inspired Oxygen 11/27/24 09:38 Temperature Pulse Rate 84 Respiratory Rate Blood Pressure Pulse Oximetry Oxygen Delivery Fraction of Inspired Oxygen Intake/Output Intake/Output: Intake & Output 11/24/24 11/25/24 11/26/24 11/27/24 23:59 23:59 23:59 23:59 Intake Total 1970 590 Balance 1970 590 Meds/Results Medications: Active Medications Generic Name Dose Route Start Last Admin Trade Name Patricioq PRN Reason Stop Dose Admin Aspirin 81 mg 11/26/24 08:00 11/27/24 09:37 Aspirin 81 Mg Chewable Tablet PO 81 mg DAILY@0800 [facility] Administration Budesonide 0.5 mg 11/26/24 20:00 11/27/24 07:48 Budesonide Respule Neb 0.5 Mg/2 Ml Amp INHALATION 0.5 mg Q12HRT EMILY Administration Buspirone HCl 10 mg 11/26/24 22:00 11/27/24 05:59 Buspirone Hcl 10 Mg Tablet PO 10 mg Q8HR [facility] Administration Enoxaparin Sodium 40 mg 11/27/24 09:00 11/27/24 09:38 Enoxaparin 40 Mg/0.4 Ml Syringe SUB-Q 40 mg DAILY EMILY Administration Ipratropium [place] 0.5 mg 11/26/24 16:00 11/27/24 07:48 Ipratropium Br 0.02% Inh Soln 0.5 Mg/2.5 Ml Vial INHALATION 0.5 mg Q4HRT EMILY Administration Metoprolol Succinate 25 mg 11/26/24 09:00 11/27/24 09:38 Metoprolol Succinate Ext Rel 25 Mg Tabcr PO 25 mg BID EMIYL Administration Nicotine 1 patch 11/26/24 09:00 11/27/24 09:38 Nicotine (*Pbkc) 21 Mg Patch TRANSDERM 1 patch DAILY EMILY Administration Nitroglycerin 0.4 mg 11/26/24 09:52 Nitroglycerin Sl 0.4 Mg Tablet SUBLINGUAL Q5MIN PRN Chest Pain Perflutren Lipid Microsphere 0 ml 11/26/24 11:25 Perflutren Lipid Microspheres 1.5 Ml Vial Diluted To 10 Ml Total Volume IV PUSH 11/29/24 11:25 ONCE PRN adequate visualization Protocol Rosuvastatin Calcium 20 mg 11/26/24 18:00 11/26/24 17:49 Rosuvastatin 20 Mg Tablet PO 20 mg EVENING EMILY Administration Radiology Results: ITS Impressions Chest X-Ray 11/25/24 23:01 IMPRESSION: No acute cardiopulmonary pathology. Chest CTA 11/26/24 18:42 IMPRESSION: 1. No pulmonary embolism. 2. No acute cardiopulmonary pathology. 3. Focal area of atelectasis versus pneumonia versus nodule seen anteriorly in the right upper lobe measuring 1.1 x 1.2x1.4 cm. 4. Compression fracture in the T6 vertebra. Labs Labs: Laboratory Results - last 24 hr 11/26/24 11/26/24 11/27/24 05:29 10:33 06:23 WBC 9.8 8.2 RBC 4.49 4.56 Hgb 14.4 14.9 Hct 45.6 47.5 H MCV 101.6 H 104.2 H MCH 32.1 32.7 MCHC 31.6 L 31.4 L RDW 13.9 13.9 Plt Count 207 182 MPV 10.2 10.4 Immature Gran % (Auto) 0.9 H 0.6 H Neut % (Auto) 63.9 65.4 Lymph % (Auto) 25.7 23.8 [place] % (Auto) 7.2 6.2 Eos % (Auto) 2.0 3.5 Baso % (Auto) 0.3 0.5 Lymph # (Auto) 2.52 1.95 [place] # (Auto) 0.7 H 0.5 Eos # (Auto) 0.2 0.3 Baso # (Auto) 0.0 0.0 Abs Immat Gran (auto) 0.09 H 0.05 H Absolute Neuts (auto) 6.3 5.3 Absolute Nucleated RBC 0.000 0.000 Nucleated RBC % 0.0 0.0 Sodium 139 137 Potassium 3.9 4.1 Chloride 106 107 Carbon Dioxide 23 26 Anion Gap 10 4 BUN 23 H 14 D Creatinine 1.11 H 0.90 Estim Creat Clear Calc 50 61 Estimated GFR 49 L > 60 Glucose 100 92 Calcium 9.5 8.4 Magnesium 2.4 H 2.4 H Total Bilirubin 0.8 0.6 AST 40 H 29 ALT 62 H 45 H Alkaline Phosphatase 44 36 L NT-Pro-B Natriuret Pep 356 H Total Protein 7.0 5.0 L Albumin 4.2 3.1 L TSH 2.690 Free T4 1.55
--- NOTE | 2024-11-27 10:54 | PM.PNPUL ---
Progress Note: A&P Assessment and Plan (1) Chronic obstructive pulmonary disease: Code(s): J44.9 - Chronic obstructive pulmonary disease, unspecified Status: Acute Assessment and Plan: Patient tells me she smoked 1 pack for day from age 16 to recently and currently is smoking half a pack. Total 48 pack years. I have no no PFTs Patient tells me she quit on 11/23/2024. CT scan of the chest 11/10/2024 with moderate apical predominant centrilobular emphysema. She is exposed to no secondhand smoke. She has no occupational exposures. Collectively they tell me on a good day she can walk half a block. One year ago she could walk 3 block. She was prescribed home oxygen approximately 1 year ago but only uses it sporadically at night at 2 L NC. Maintained on Advair 115-21 at 2 puffs b.i.d. and Incruse Ellipta 62.5 for many years. currently the patient complains of dyspnea on exertion, tachycardic episodes, anxiety episodes, with no change in her chronic phlegm of 1 time a day, no change in the color of her phlegm which is clear, and no significant change in her dyspnea on exertion. She has intermittent wheezing. plan: The patient does not have typical symptoms of COPD exacerbation. Given her reported tachycardic episodes I will discontinue all beta agonists and attempt to control her with ipratropium nebulizers 0.5 mg q.4 hours and budesonide nebulizers 0.5 mg Q 12 hours. I do not feel she needs systemic steroids at this time. She has no infectious complaints and I do not feel she needs antibiotics. Agree with CT angiogram of the chest to exclude PE. Patient will have an echocardiogram. Patient is being monitored on telemetry for tachyarrhythmias. Later in the day patient had a CT angiogram of the chest which showed No PE, right upper lobe nodule versus scarring with no change compared to 11/10/2024. No evidence of interstitial lung disease, pulmonary edema or pleural effusions. 11/27/2024: Overall patient tells me she slept well. She states she is breathing 95 back % back to her normal. Her cough is normal. No phlegm or hemoptysis. She is afebrile. White blood cell count 8.2, creatinine 0.9., TSH 2.69, free T4 1.55. Currently the patient is on room air with saturations 96%. Plan: Breathing has improved off of all inhaled beta agonists for 24 hours. She has been on ipratropium nebulizer Q 4 budesonide 500 mcg b.i.d.. Will continue at this time. Patient is having SVT consistent with atrial tachycardia and Cardiology would discontinue metoprolol in place her on diltiazem. I will repeat overnight oximetry on 3 L nasal cannula. Discussed with Dr. Valverde and Dr. Mathias, will follow with you. (2) Tachycardia: Code(s): R00.0 - Tachycardia, unspecified Status: Acute Assessment and Plan: At rest her heart rate was 95. Patient then walked to the bathroom on room air and her saturations remain 93 and her heart rate increased to 100. I then walked the patient in the hallway on room air. We walked for a total of about 2-1/2 minutes and I watched her satellite project site monitor continuously. After approximately 1 minute she said that she was starting to feel short of breath. Her heart rate was 110 and her saturations were 91. We continued to walk and then she said she was short of breath and she rated this at a scale of 6/10 and her heart rate was 110 and her saturations were 91. We walked for a total of 2-1/2 minutes. She then sat in the bed and after 15 seconds her shortness of breath decreased from a 6/10 to 4/10 with a heart rate of 104 and a saturations 91. After another 15 seconds she decreased to 3/10 with a heart rate of 101 and a saturation of 92. After another 15 seconds she was a at a 1/10 with her shortness of breath and her heart rate was 99 with a saturation of 94. She had no audible wheezing during this activity. Plan: Current walking limited by dyspnea on exertion rather than tachycardia or anxiety. Currently patient with sinus tachycardia and no documented alternative arrhythmia. Will discontinue all beta agonists to see if this is contributing to tachyarrhythmias. Continue metoprolol 25 mg p.o. b.i.d. per security consultant and hospitalist team. 11/26/24: During the overnight oximetry she had 2 episodes of abrupt onset tachycardia going from 68-103. I reviewed reviewed her telemetry monitoring with Cardiology and these episodes were an SVT consistent with atrial tachycardia. Plan: Cardiology has discontinue metoprolol and placed her on diltiazem 120 q.a.m.. Patient have a stress test tomorrow morning. (3) Anxiety: Code(s): F41.9 - Anxiety disorder, unspecified Status: Acute Assessment and Plan: Patient was started on BuSpar 10 mg q.12 hours during her hospitalization on 11/10/2024 and feels this is helping. Plan: Will discuss with hospitalist about a higher dose of BuSpar. 11/27/24: Patient was placed on BuSpar 10 mg q.8 hours yesterday. Will continue. (4) Suspected sleep apnea: Code(s): R29.818 - Other symptoms and signs involving the nervous system Status: Acute Assessment and Plan: Patient with daytime hypersomnia, snoring but no witnessed apneas, BMI 32.1. 11/27/24: Patient had an overnight oximetry on 2 L nasal cannula with recording duration of 7 hours and 19 minutes. Average saturation 97%. Low saturation 74%. Time with saturation less than or equal to 88% was 18 minutes, oxygen desaturation index 4.5. Plan: Patient will need an outpatient sleep study to assess for sleep-related breathing disorder. In the meantime I will try to provide adequate oxygenation. She had desaturations on 2 L nasal cannula and will repeat overnight oximetry on 3 L nasal cannula. Subjective Date/time seen: 11/27/24 10:54 Interval history: 11/26/2024: This is a new pulmonary consult for COPD exacerbation. 64-year-old with a history of asthma and COPD, tobacco use, anxiety. Patient was seen by myself for COPD exacerbation during hospitalization from 11/10/2024 through 11/11/2024. I had no PFTs. CT scan of the chest 11/10/2024 with moderate apical predominant centrilobular emphysema. She was smoking half a pack a cigarettes a day. She was treated with BiPAP, steroids, bronchodilators and Levaquin. ABG on the day of discharge was 7.44/35/58 on room air. She was discharged on prednisone 40 x 3 days, Levaquin 750 x 5 days, Advair 115-21 at 2 puffs b.i.d., Incruse Ellipta 62.5 at 1 puff q.day albuterol rescue. For her anxiety she was started on BuSpar 10 p.o. b.i.d. Discharged on 2 L nasal cannula with rest, with activity and at night. No home O2 sessile was performed. Patient tells me she smoked 1 pack for day from age 16 to recently and currently is smoking half a pack. 48 pack years. She is exposed to no secondhand smoke. She has no occupational exposures. Collectively they tell me on a good day she can walk half a block. One year ago she could walk 3 block. She was prescribed home oxygen approximately 1 year ago but only uses it sporadically at night at 2 L NC. Maintained on Advair 115-21 at 2 puffs b.i.d. and Incruse Ellipta 62.5 for many years. 11/17/2024 through 11/20/2024: Patient admitted to the hospital with shortness of breath. Recently finished her antibiotics but was still short of breath with dyspnea on exertion and a heart rate to the 140s. she continued to have palpitations and sinus tachy with activity. She was treated for COPD exacerbation with steroids, possible pneumonia with ceftriaxone and doxycycline. Discharged on prednisone 40 mg a day for 5 days and levofloxacin 750 mg for 5 days. To continue her Advair 115-21 at 2 puffs b.i.d., Incruse Ellipta 62.5 at 1 puff q.day, rescue DuoNebs, rescue albuterol. 11/23/2024 through 11/24/2024: Admitted to [facility] with tachycardia and palpitations. Last night had a heart rate of 160-170. Worse with ambulation. Lungs were clear. Heart rate was 95. Room air saturations 94%. Patient was admitted. Cardiology consult obtained and patient's telemetry showed sinus tachycardia and her metoprolol was increased to 25 b.i.d.. Smoking cessation was provided. Discharged on Advair 115-21 2 puffs b.i.d., Incruse Ellipta 1 puff q.day, Levaquin for 5 days. Metoprolol 25 p.o. b.i.d.. To have a Holter monitor. TSH 3.70. BNP 2880. On 11/25/2024 the patient woke up and had no respiratory issues While sitting. She had a little short shortness of breath when walking. she complains of having episodes that occur sometimes at rest but usually with walking with shortness of breath, fast heart rate and anxiety. She has a hard time telling which comes 1st but says usually her heart rate goes up to 130 sometimes sitting and 145 walking and then she gets short of breath and then anxious. She does not notice active wheezing with these episodes. 11/25/2024: Patient presented to the emergency room with a complaint of fast heart rate, palpitations. Patient notes tachycardia, shortness of breath and anxiety. Patient had mild tachypnea with clear breath sounds. She was tachycardic at 1:33 a.m.. Room air saturations 93%. Blood pressure 116/70. Afebrile. White blood cell count 11.2, eosinophils 1.7%. Creatinine 1.20, Hemoglobin 16.2, hematocrit 50.2. Troponin negative. Chest x-ray no acute changes. She was anxious and tearful. She was given 2 L the LR. 11/26/24: The patient tells me she has had no cough, no fever, no chills, no rigors no hemoptysis. She has had her usual phlegm production of 1 time a day with she is clear. She has no change in her phlegm and no wheezing or changes in her respiratory status over the last 2 days. Her last use of rescue albuterol was on 11/24 and this helped her breathe. She takes rescue albuterol 1 to 2 times a week at baseline. All inhaled beta agonists were discontinued with a last Advair use at 10:49 a.m. Currently the patient is on room air with saturations 94%. She is afebrile. White blood cell count 9.8, creatinine 1.11. At rest her heart rate was 95. Patient then walked to the bathroom on room air and her saturations remain 93 and her heart rate increased to 100. I then walked the patient in the hallway on room air. We walked for a total of about 2-1/2 minutes and I watched her satellite project site monitor continuously. After approximately 1 minute she said that she was starting to feel short of breath. Her heart rate was 110 and her saturations were 91. We continued to walk and then she said she was short of breath and she rated this at a scale of 6/10 and her heart rate was 110 and her saturations were 91. We walked for a total of 2-1/2 minutes. She then sat in the bed and after 15 seconds her shortness of breath decreased from a 6/10 to 4/10 with a heart rate of 104 and a saturations 91. After another 15 seconds she decreased to 3/10 with a heart rate of 101 and a saturation of 92. After another 15 seconds she was a at a 1/10 with her shortness of breath and her heart rate was 99 with a saturation of 94. She had no audible wheezing during this activity. At home she is telling me that when she walks across the room sometimes her heart rate will get to 145. Later in the day patient had a CT angiogram of the chest which showed no PE, right upper lobe nodule versus scarring with no change compared to 11/10/2024. No evidence of interstitial lung disease, pulmonary edema or pleural effusions. 11/27/2024: Overall patient tells me she slept well. She states she is breathing 95 back % back to her normal. Her cough is normal. No phlegm or hemoptysis. She is afebrile. White blood cell count 8.2, creatinine 0.9., TSH 2.69, free T4 1.55. Currently the patient is on room air with saturations 96%. Patient had an overnight oximetry on 2 L nasal cannula with recording duration of 7 hours and 19 minutes. Average saturation 97%. Low saturation 74%. Time with saturation less than or equal to 88% was 18 minutes, oxygen desaturation index 4.5. During the overnight oximetry she had 2 episodes of abrupt onset tachycardia going from 68-103. I reviewed reviewed her telemetry monitoring with Cardiology and these episodes were an SVT consistent with atrial tachycardia. DATA 11/26/24: CTA chest PE protocol Ordering provider: Osman Valverde MD History: 64 years Female with . shortness of breath . Comparison: None. Technique: CT angiogram chest was performed following timed intravenous injection of contrast. Thin slice axial images and reformatted coronal images were obtained. Three dimensional reformatted images of the chest were also obtained using a [employer] workstation. . Automated exposure control and iterative reconstruction technique were employed. The dose-length product was 822.01 mGy-cm. 100 mL Omnipaque 350 was given IV. Findings: PULMONARY ARTERIES: No pulmonary embolus. VISUALIZED THORACIC INLET: Normal. MEDIASTINUM: Aorta/coronary arteries: Mild atheromatous disease. Heart/other: The heart is not enlarged. Lymph nodes: No mediastinal or hilar adenopathy. LUNGS: Possible nodule or focal atelectasis seen anteriorly in the right upper lobe which measures 1.1 x 1.2 x 1.4 cm. No pulmonary masses. No infiltrates or effusions. No pneumothorax. VISUALIZED UPPER ABDOMEN: Right renal cyst. lobated kidneys is noted. Otherwise, the visualized upper abdomen is normal. MUSCULOSKELETAL: Soft tissues: The superficial soft tissues are normal. Bones: Fracture is seen in T6. Age appropriate degenerative changes of the spine. IMPRESSION: 1. No pulmonary embolism. 2. No acute cardiopulmonary pathology. 3. Focal area of atelectasis versus pneumonia versus nodule seen anteriorly in the right upper lobe measuring 1.1 x 1.2x1.4 cm. 4. Compression fracture in the T6 vertebra. 11/23/24: Echo Summary 1. Technically difficult study with poorly visualized views. 2. Overall preserved biventricular systolic function. Left Ventricle The left ventricle is normal in size and systolic function. The left ventricular ejection fraction is visually estimated to be 60-65%. Right Ventricle The right ventricle is normal in size and systolic function. Left Atria The left atrium is normal size. Right Atria The right atrium is normal size. no RVSP Calculated 11/10/24; CT diagnostic chest wo con Ordering provider: Parish Ragsdale MD History: 64 years Female with . COPD . Comparison: None. Technique: CT chest without IV contrast. Radiation reduction technique utilized.The dose-length product was 365.56 mGy-cm. FINDINGS: VISUALIZED THORACIC INLET: Normal. Retropharyngeal carotid arteries. MEDIASTINUM: Aorta/coronary arteries: Mild atheromatous disease. Heart/other: The heart is not enlarged. Lymph nodes: No mediastinal or hilar adenopathy. LUNGS: Underlying emphysematous changes. No pulmonary nodules or masses. No infiltrates or effusions. No pneumothorax. Atelectasis versus focal pneumonia is seen in the right upper lobe. VISUALIZED UPPER ABDOMEN: Right kidney small cyst measuring 1.8 cm. Status post cholecystectomy. Otherwise, the visualized upper abdomen is normal. MUSCULOSKELETAL: Soft tissues: The superficial soft tissues are normal. Bones: Age appropriate degenerative changes of the spine. Burst fracture is seen in T6 which may be acute or chronic. MRI evaluation advised. IMPRESSION: 1. Focal area of atelectasis versus pneumonia in the right upper lobe anteriorly. Otherwise, No evidence of pneumonia or pneumothorax. 2. Underlying emphysematous changes. 3. Burst fracture of T6. MRI is advised. Review of Systems Constitutional: Constitutional: Reports no additional constitutional complaints Eyes: Eyes: Reports no additional eye complaints ENT: Reports system reviewed and no additional complaints, except as documented Cardiovascular: Cardiovascular: Reports no additional cardiovascular complaints Respiratory: Respiratory: Reports no additional respiratory complaints Gastrointestinal: Gastrointestinal: Reports no additional gastrointestinal complaints Musculoskeletal: Musculoskeletal: Reports no additional musculoskeletal complaints Neurologic: Reports system reviewed and no additional complaints, except as documented Psychiatric: Psychiatric: Reports no additional psychiatric complaints Endocrine: Endocrine: Reports no additional endocrine complaints Hematologic/Lymphatic: Hematologic/Lymphatic: Reports no additional hematologic/lymphatic complaints Allergic/Immunologic: Allergic/Immunologic: Reports no additional allergic/immunologic complaints Exam Const: General: cooperative, healthy appearing and comfortable Orientation/consciousness: oriented to person, oriented to place and oriented to time HENMT: Head: normal to inspection Ears: hearing grossly normal bilaterally Eyes: General: appearance normal, both eyes and all related structures Neck: Neck: normal visual inspection Chest: Chest palpation & inspection: normal inspection of the chest Resp: Effort & Inspection: normal respiratory effort and able to speak in complete sentences Auscultation: no crackles, no rales, no rhonchi, no wheezes and lung sounds not diminished Other: no wheezing. Cardio: Jugular venous distension: no JVD GI: Inspection: normal to inspection Skin: General skin exam: normal color Neuro: General: oriented to person, oriented to place and oriented to time Extrem: General: normal to inspection Psych: Appearance: grossly normal Objective Data Vital Signs Vital Signs: Vital Signs - 24 hr 11/26/24 11:29 11/26/24 12:00 11/26/24 14:00 Temperature Pulse Rate 84 106 H 80 Respiratory Rate Blood Pressure 108/67 Pulse Oximetry 94 Oxygen Delivery Fraction of Inspired Oxygen 11/26/24 15:07 11/26/24 15:07 11/26/24 15:17 Temperature Pulse Rate 112 H 115 H Respiratory Rate 20 20 Blood Pressure Pulse Oximetry 93 Oxygen Delivery Room Air Fraction of Inspired Oxygen 21 11/26/24 16:00 11/26/24 16:21 11/26/24 19:53 Temperature 36.4 C L Pulse Rate 125 H 132 H 81 Respiratory Rate 16 Blood Pressure 118/47 L Pulse Oximetry 96 Oxygen Delivery Fraction of Inspired Oxygen 11/26/24 20:00 11/26/24 20:00 11/26/24 20:14 Temperature Pulse Rate 90 90 77 Respiratory Rate 16 16 Blood Pressure Pulse Oximetry 95 Oxygen Delivery Room Air Fraction of Inspired Oxygen 11/26/24 20:25 11/27/24 00:00 11/27/24 04:00 Temperature Pulse Rate 77 67 80 Respiratory Rate 16 Blood Pressure Pulse Oximetry Oxygen Delivery Fraction of Inspired Oxygen 11/27/24 06:00 11/27/24 07:50 11/27/24 07:50 Temperature 36.3 C L Pulse Rate 71 75 Respiratory Rate 16 20 Blood Pressure 112/60 Pulse Oximetry 96 94 Oxygen Delivery Room Air Fraction of Inspired Oxygen 11/27/24 08:01 11/27/24 09:38 Temperature Pulse Rate 64 84 Respiratory Rate 20 Blood Pressure Pulse Oximetry Oxygen Delivery Fraction of Inspired Oxygen Intake/Output Intake/Output: Intake & Output 11/24/24 11/25/24 11/26/24 11/27/24 23:59 23:59 23:59 23:59 Intake Total 1970 590 Balance 1970 590 Meds/Results Medications: Active Medications Generic Name Dose Route Start Last Admin Trade Name Freq PRN Reason Stop Dose Admin Aspirin 81 mg 11/26/24 08:00 11/27/24 09:37 Aspirin 81 Mg Chewable Tablet PO 81 mg DAILY@0800 [facility] Administration Budesonide 0.5 mg 11/26/24 20:00 11/27/24 07:48 Budesonide Respule Neb 0.5 Mg/2 Ml Amp INHALATION 0.5 mg Q12HRT [facility] Administration Buspirone HCl 10 mg 11/26/24 22:00 11/27/24 05:59 Buspirone Hcl 10 Mg Tablet PO 10 mg Q8HR EMILY Administration Diltiazem HCl 120 mg 11/27/24 10:20 Diltiazem Hcl Cd 120 Mg Cap.24hr PO QAM [facility] Enoxaparin Sodium 40 mg 11/27/24 09:00 11/27/24 09:38 Enoxaparin 40 Mg/0.4 Ml Syringe SUB-Q 40 mg DAILY EMILY Administration Ipratropium [place] 0.5 mg 11/26/24 16:00 11/27/24 07:48 Ipratropium Br 0.02% Inh Soln 0.5 Mg/2.5 Ml Vial INHALATION 0.5 mg Q4HRT EMILY Administration Nicotine 1 patch 11/26/24 09:00 11/27/24 09:38 Nicotine (*Pbkc) 21 Mg Patch TRANSDERM 1 patch DAILY EMILY Administration Nitroglycerin 0.4 mg 11/26/24 09:52 Nitroglycerin Sl 0.4 Mg Tablet SUBLINGUAL Q5MIN PRN Chest Pain Perflutren Lipid Microsphere 0 ml 11/26/24 11:25 Perflutren Lipid Microspheres 1.5 Ml Vial Diluted To 10 Ml Total Volume IV PUSH 11/29/24 11:25 ONCE PRN adequate visualization Protocol Rosuvastatin Calcium 20 mg 11/26/24 18:00 11/26/24 17:49 Rosuvastatin 20 Mg Tablet PO 20 mg EVENING EMILY Administration Radiology Results: ITS Impressions Chest X-Ray 11/25/24 23:01 IMPRESSION: No acute cardiopulmonary pathology. Chest CTA 11/26/24 18:42 IMPRESSION: 1. No pulmonary embolism. 2. No acute cardiopulmonary pathology. 3. Focal area of atelectasis versus pneumonia versus nodule seen anteriorly in the right upper lobe measuring 1.1 x 1.2x1.4 cm. 4. Compression fracture in the T6 vertebra. Labs Labs: Laboratory Results - last 24 hr 11/26/24 11/27/24 10:33 06:23 WBC 8.2 RBC 4.56 Hgb 14.9 Hct 47.5 H MCV 104.2 H MCH 32.7 MCHC 31.4 L RDW 13.9 Plt Count 182 MPV 10.4 Immature Gran % (Auto) 0.6 H Neut % (Auto) 65.4 Lymph % (Auto) 23.8 [place] % (Auto) 6.2 Eos % (Auto) 3.5 Baso % (Auto) 0.5 Lymph # (Auto) 1.95 [place] # (Auto) 0.5 Eos # (Auto) 0.3 Baso # (Auto) 0.0 Abs Immat Gran (auto) 0.05 H Absolute Neuts (auto) 5.3 Absolute Nucleated RBC 0.000 Nucleated RBC % 0.0 Sodium 137 Potassium 4.1 Chloride 107 Carbon Dioxide 26 Anion Gap 4 BUN 14 D Creatinine 0.90 Estim Creat Clear Calc 61 Estimated GFR > 60 Glucose 92 Calcium 8.4 Magnesium 2.4 H Total Bilirubin 0.6 AST 29 ALT 45 H Alkaline Phosphatase 36 L NT-Pro-B Natriuret Pep 356 H Total Protein 5.0 L Albumin 3.1 L TSH 2.690 Free T4 1.55
[2024-11-27] MEDS: dilTIAZem HCL CD 120 MG CAP.24HR PO (12:21)
--- NOTE | 2024-11-27 12:39 | PCRCNOTE ---
Pt eating lunch no treatment given at this time. Checked on pt twice for treatment
--- NOTE | 2024-11-27 12:41 | P.PNIM_ITS ---
Progress Note: A&P Assessment and Plan (1) Anxiety: Code(s): F41.9 - Anxiety disorder, unspecified Status: Acute (2) Coronary artery disease: Onset Date: 10/2023 Code(s): I25.10 - Atherosclerotic heart disease of [place] coronary artery without angina pectoris Status: Acute (3) Tachycardia: Code(s): R00.0 - Tachycardia, unspecified Status: Acute (4) Palpitations: Code(s): R00.2 - Palpitations Status: Acute (5) Chronic obstructive pulmonary disease: Code(s): J44.9 - Chronic obstructive pulmonary disease, unspecified Status: Acute Plan 64-year-old female with history of coronary disease, COPD, anxiety, grade 1 diastolic dysfunction and recent hospitalizations multiple times since the beginning of this month. Patient presents to the emergency room with complaints of palpitations and elevated heart rate within the heart rates in the 160s and 170s with activity. She endorses shortness of breath when this happens. She has been evaluated and admitted to the hospital multiple times this month for similar and discharged home with a Holter monitor which she did 2 days ago. She turned in the Holter monitor yesterday after 24 observation and came to the ER as she was having palpitations and noted that her heart rate was in the 170s. S he endorses pain in her chest when this happens and severe anxiety. She has been evaluated multiple times by Cardiology with recommendations for upping her metoprolol and will follow up with her on outpatient basis but this did not happen yet as she returned to the emergency department almost immediately. In the ER patient was tachycardic in 130s otherwise vitals were stable. Laboratory studies revealed WBC of 11.2 hematocrit 50 16 platelet 272 Chem panel with normal electrolytes creatinine 1.2 blood sugar was 121. Renal function slightly elevated from her baseline. Troponin was negative. LFTs were normal. She received 2 L of LR in the ER. BNP was elevated at 2880 recent admission EKG with sinus tachycardia. Chest x-ray with no acute cardiopulmonary abnormality. She is admitted in the setting for further observation. She reports that she gets tachycardic whenever she exerts. Nonobstructive coronary artery disease by catheterization January of 2024 COPD on home oxygen 2 L at baseline. Possible COPD exacerbation. Mild wheezing. Due to CT to further evaluate due to ongoing tachycardia with exertion. Recent echocardiogram normal EF. Valves were not well visualized. Repeat echocardiogram to check her valves pending. Holter monitor was recently done which is yet to be reviewed. Continue to monitor on telemetry Episodes of SVT/NSVT: Cardiology board. Plan stress test in a.m.. Tobacco abuse Grade 1 diastolic dysfunction echo 11/23/2024 with EF 60-65% valves were not well visualized Anxiety disorder on buspirone Possible sleep apnea apnea link with AHI 32.1 need sleep study as an outpatient basis DVT prophylaxis Lovenox Code status full code Subjective Date/time seen: 11/27/24 12:41 Interval history: Telemetry reviewed. Reports shortness of breath with exertion. SVT in 130s to 140s noted Review of Systems Review of Systems: All systems reviewed & are unremarkable except as noted in HPI and below Exam Narrative: GENERAL: Morbidly obese, not in acute distress HEAD: [Normocephalic, atraumatic.] EYES: [PERRLA and EOMI.] ENT: Nares clear, no rhinorrhea or epistaxis. Mucous membranes moist. NECK: Supple. CHEST: Mildly tachypneic no respiratory distress no wheezes HEART: Regular rate with regular rhythm. No murmur heard. [Normal peripheral pulses.] ABDOMEN: [Soft, nondistended], [nontender], [No rigidity or guarding] EXTREMITIES: Normal range of motion. [No edema.] SKIN: Warm, dry, no rash. NEURO: [No focal deficits]. Alert and oriented [x3.] PSYCH: [Normal mood and affect.] Objective Data Vital Signs Vital Signs: Vital Signs - 24 hr 11/26/24 14:00 11/26/24 15:07 11/26/24 15:07 Temperature Pulse Rate 80 112 H Respiratory Rate 20 Blood Pressure 108/67 Pulse Oximetry 94 93 Oxygen Delivery Room Air Fraction of Inspired Oxygen 21 11/26/24 15:17 11/26/24 16:00 11/26/24 16:21 Temperature Pulse Rate 115 H 125 H 132 H Respiratory Rate 20 Blood Pressure Pulse Oximetry Oxygen Delivery Fraction of Inspired Oxygen 11/26/24 19:53 11/26/24 20:00 11/26/24 20:00 Temperature 97.5 F L Pulse Rate 81 90 90 Respiratory Rate 16 16 Blood Pressure 118/47 L Pulse Oximetry 96 95 Oxygen Delivery Room Air Fraction of Inspired Oxygen 11/26/24 20:14 11/26/24 20:25 11/27/24 00:00 Temperature Pulse Rate 77 77 67 Respiratory Rate 16 16 Blood Pressure Pulse Oximetry Oxygen Delivery Fraction of Inspired Oxygen 11/27/24 04:00 11/27/24 06:00 11/27/24 07:50 Temperature 97.4 F L Pulse Rate 80 71 Respiratory Rate 16 Blood Pressure 112/60 Pulse Oximetry 96 94 Oxygen Delivery Room Air Fraction of Inspired Oxygen 11/27/24 07:50 11/27/24 08:01 11/27/24 09:38 Temperature Pulse Rate 75 64 84 Respiratory Rate 20 20 Blood Pressure Pulse Oximetry Oxygen Delivery Fraction of Inspired Oxygen Intake/Output Intake/Output: Intake & Output 11/24/24 11/25/24 11/26/24 11/27/24 23:59 23:59 23:59 23:59 Intake Total 1969 590 Balance 1969 590 Meds/Results Medications: Active Medications Generic Name Dose Route Start Last Admin Trade Name Freq PRN Reason Stop Dose Admin Aspirin 81 mg 11/26/24 08:00 11/27/24 09:37 Aspirin 81 Mg Chewable Tablet PO 81 mg DAILY@0800 EMILY Administration Budesonide 0.5 mg 11/26/24 20:00 11/27/24 07:48 Budesonide Respule Neb 0.5 Mg/2 Ml Amp INHALATION 0.5 mg Q12HRT EMILY Administration Buspirone HCl 10 mg 11/26/24 22:00 11/27/24 12:21 Buspirone Hcl 10 Mg Tablet PO 10 mg Q8HR EMILY Administration Diltiazem HCl 120 mg 11/27/24 10:20 11/27/24 12:21 Diltiazem Hcl Cd 120 Mg Cap.24hr PO 120 mg QAM EMILY Administration Enoxaparin Sodium 40 mg 11/27/24 09:00 11/27/24 09:38 Enoxaparin 40 Mg/0.4 Ml Syringe SUB-Q 40 mg DAILY EMILY Administration Ipratropium [place] 0.5 mg 11/26/24 16:00 11/27/24 12:39 Ipratropium Br 0.02% Inh Soln 0.5 Mg/2.5 Ml Vial INHALATION Not Given Q4HRT [facility] Nicotine 1 patch 11/26/24 09:00 11/27/24 09:38 Nicotine (*Pbkc) 21 Mg Patch TRANSDERM 1 patch DAILY EMILY Administration Nitroglycerin 0.4 mg 11/26/24 09:52 Nitroglycerin Sl 0.4 Mg Tablet SUBLINGUAL Q5MIN PRN Chest Pain Perflutren Lipid Microsphere 0 ml 11/26/24 11:25 Perflutren Lipid Microspheres 1.5 Ml Vial Diluted To 10 Ml Total Volume IV PUSH 11/29/24 11:25 ONCE PRN adequate visualization Protocol Rosuvastatin Calcium 20 mg 11/26/24 18:00 11/26/24 17:49 Rosuvastatin 20 Mg Tablet PO 20 mg EVENING EMILY Administration Radiology Results: ITS Impressions Chest X-Ray 11/25/24 23:01 IMPRESSION: No acute cardiopulmonary pathology. Chest CTA 11/26/24 18:42 IMPRESSION: 1. No pulmonary embolism. 2. No acute cardiopulmonary pathology. 3. Focal area of atelectasis versus pneumonia versus nodule seen anteriorly in the right upper lobe measuring 1.1 x 1.2x1.4 cm. 4. Compression fracture in the T6 vertebra. Labs Labs: Laboratory Results - last 24 hr 11/27/24 06:23 WBC 8.2 RBC 4.56 Hgb 14.9 Hct 47.5 H MCV 104.2 H MCH 32.7 MCHC 31.4 L RDW 13.9 Plt Count 182 MPV 10.4 Immature Gran % (Auto) 0.6 H Neut % (Auto) 65.4 Lymph % (Auto) 23.8 [place] % (Auto) 6.2 Eos % (Auto) 3.5 Baso % (Auto) 0.5 Lymph # (Auto) 1.95 [place] # (Auto) 0.5 Eos # (Auto) 0.3 Baso # (Auto) 0.0 Abs Immat Gran (auto) 0.05 H Absolute Neuts (auto) 5.3 Absolute Nucleated RBC 0.000 Nucleated RBC % 0.0 Sodium 137 Potassium 4.1 Chloride 107 Carbon Dioxide 26 Anion Gap 4 BUN 14 D Creatinine 0.90 Estim Creat Clear Calc 61 Estimated GFR > 60 Glucose 92 Calcium 8.4 Magnesium 2.4 H Total Bilirubin 0.6 AST 29 ALT 45 H Alkaline Phosphatase 36 L Total Protein 5.0 L Albumin 3.1 L TSH 2.690 Free T4 1.55
[2024-11-27] MEDS: ROSUVASTATIN 20 MG TABLET PO (17:49)
[2024-11-28] VITALS (18 sets, daily range): BP systolic 103–135; BP diastolic 41–68; PULSE 60–109; RESP 20–118; TEMP 36.4–36.6; O2SAT 91–97
[2024-11-28] MEDS: IPRATROPIUM BR 0.02% INH SOLN 0.5 MG/2.5 ML VIAL INHALATION ×2 (04:37→07:38)
[2024-11-28] MEDS: busPIRone HCL 10 MG TABLET PO ×3 (06:09→21:18)
[2024-11-28 07:01] LABS: Basophils Percent Auto 0.3 % (0.2-1.2); Eosinophils Absolute Auto 0.2 K/mm3 (0-0.3); Eosinophils Percent Auto 2.6 % (0-4.4); Hematocrit 43.3 % (37.0-47.0); Hemoglobin 13.7 g/dL (12.0-15.0); Immature Granulocyte Absolute 0.06 K/mm3 (0.00-0.031); Immature Granulocyte Percent A 0.8 % (0-0.5); Lymphocytes Absolute Auto 1.57 K/mm3 (0.9-3.2); Lymphocytes Percent Auto 20.2 % (18.3-44.2); Mean Corpuscular HGB Conc 31.6 g/dl (32-36); Mean Corpuscular Hemoglobin 32.2 pg (26-34); Mean Corpuscular Volume 101.9 fl (80-100); Mean Platelet Volume 10.2 fl (7.4-10.4); Monocytes Absolute Auto 0.5 K/mm3 (0.1-0.6); Monocytes Percent Auto 6.7 % (2.6-8.5); Neutrophils Absolute Auto 5.4 K/mm3 (1.3-6.7); Neutrophils Percent Auto 69.4 % (45.5-73.1); Platelet Count Result 174 k/mm3 (150-375); Red Blood Count 4.25 M/mm3 (4.2-5.4); Red Cell Distribution Width 13.8 % (11.5-14.5); White Blood Count 7.8 K/mm3 (4.5-10.0)
[2024-11-28 07:15] LABS: Alanine Aminotransferase 41 U/L (6-35); Albumin Level 3.4 g/dL (3.5-5.1); Alkaline Phosphatase 35 U/L (38-126); Anion Gap 3 mmol/L (4-12); Aspartate Amino Transferase 27 U/L (14-36); Bilirubin,Total 0.6 mg/dL (0.2-1.3); Blood Urea Nitrogen 11 mg/dL (7-17); Calcium 8.7 mg/dL (8.4-10.2); Carbon Dioxide 30 mmol/L (22-30); Chloride 103 mmol/L (98-107); Estimated CRCL calculation 65 ml/min; Estimated Glomerular Filt Rate > 60; Glucose 98 mg/dL (65-110); Magnesium 2.1 mg/dL (1.6-2.3); Potassium 3.7 mmol/L (3.4-5.0); Sodium 136 mmol/L (137-145)
[2024-11-28] MEDS: BUDESONIDE RESPULE NEB 0.5 MG/2 ML AMP INHALATION (07:38)
--- NOTE | 2024-11-28 08:16 | EST_ITS ---
Patient Info Name: Minnie Anguiano Age: 64 years : 1960 Gender: Female Ht: 65 in Wt: 193 lbs BSA: 2.04 m2 Exam Date: 11/28/2024 8:16 AM Patient Status: I Admit Date: 11/26/2024 Exam Type: CA stress samuel w NM A regadenoson stress test was performed. Staff Referring Physician: Cooper Mathias MD Attending Provider: Disha Garces Nurse: Veronika Kim Summary 1. No abnormal ST-T wave changes with lexiscan. 2. Please correlate with nuclear medicine images, reported separately. Protocol: Lexiscan Stress ECG Details Stage: REST Duration (min): 0 min : 52 sec HR (bpm): 96 SBP (mmHg): 112 DBP (mmHg): 78 Stage: REST Duration (min): 1 min : 16 sec HR (bpm): 93 SBP (mmHg): 112 DBP (mmHg): 78 Stage: REST Duration (min): 5 min : 41 sec HR (bpm): 100 SBP (mmHg): 112 DBP (mmHg): 78 Stage: STAGE 1 Duration (min): 1 min : 0 sec HR (bpm): 114 SBP (mmHg): 130 DBP (mmHg): 83 Stage: RECOVERY Duration (min): 1 min : 0 sec HR (bpm): 124 SBP (mmHg): 130 DBP (mmHg): 83 Stage: RECOVERY Duration (min): 2 min : 0 sec HR (bpm): 118 SBP (mmHg): 130 DBP (mmHg): 83 Stage: RECOVERY Duration (min): 3 min : 0 sec HR (bpm): 109 SBP (mmHg): 130 DBP (mmHg): 83 Stage: RECOVERY Duration (min): 3 min : 8 sec HR (bpm): 116 SBP (mmHg): 130 DBP (mmHg): 83 Rest HR: 100 bpm Peak HR: 125 bpm Rest Sys BP: 112 mmHg Peak Sys BP: 130 mmHg Max Pred HR: 156 bpm % Max Pred HR: 80 % Target HR: 133 bpm Max RPP: 16,250 bpm*mmHg Total Time: 1 min : 0 sec Rest [place] BP: 78 mmHg Peak [place] BP: 83 mmHg Total Dose: 0.4 mg Resting ECG Sinus rhythm. Low precordial voltage. Stress ECG Sinus tachycardia. No ischemic changes. Arrhythmias Rare ventricular ectopy. Report Signatures
--- NOTE | 2024-11-28 10:42 | PM.PNPUL ---
Progress Note: A&P Assessment and Plan (1) Chronic obstructive pulmonary disease: Code(s): J44.9 - Chronic obstructive pulmonary disease, unspecified Status: Acute Assessment and Plan: Patient tells me she smoked 1 pack for day from age 16 to recently and currently is smoking half a pack. Total 48 pack years. I have no no PFTs Patient tells me she quit on 11/23/2024. CT scan of the chest 11/10/2024 with moderate apical predominant centrilobular emphysema. She is exposed to no secondhand smoke. She has no occupational exposures. Collectively they tell me on a good day she can walk half a block. One year ago she could walk 3 block. She was prescribed home oxygen approximately 1 year ago but only uses it sporadically at night at 2 L NC. Maintained on Advair 115-21 at 2 puffs b.i.d. and Incruse Ellipta 62.5 for many years. currently the patient complains of dyspnea on exertion, tachycardic episodes, anxiety episodes, with no change in her chronic phlegm of 1 time a day, no change in the color of her phlegm which is clear, and no significant change in her dyspnea on exertion. She has intermittent wheezing. plan: The patient does not have typical symptoms of COPD exacerbation. Given her reported tachycardic episodes I will discontinue all beta agonists and attempt to control her with ipratropium nebulizers 0.5 mg q.4 hours and budesonide nebulizers 0.5 mg Q 12 hours. I do not feel she needs systemic steroids at this time. She has no infectious complaints and I do not feel she needs antibiotics. Agree with CT angiogram of the chest to exclude PE. Patient will have an echocardiogram. Patient is being monitored on telemetry for tachyarrhythmias. Later in the day patient had a CT angiogram of the chest which showed No PE, right upper lobe nodule versus scarring with no change compared to 11/10/2024. No evidence of interstitial lung disease, pulmonary edema or pleural effusions. 11/27/2024: Overall patient tells me she slept well. She states she is breathing 95 back % back to her normal. Her cough is normal. No phlegm or hemoptysis. She is afebrile. White blood cell count 8.2, creatinine 0.9., TSH 2.69, free T4 1.55. Currently the patient is on room air with saturations 96%. Plan: Breathing has improved off of all inhaled beta agonists for 24 hours. She has been on ipratropium nebulizer Q 4 budesonide 500 mcg b.i.d.. Will continue at this time. Patient is having SVT consistent with atrial tachycardia and Cardiology would discontinue metoprolol in place her on diltiazem. I will repeat overnight oximetry on 3 L nasal cannula. 11/28/24: Today she tells me her breathing is improved. She tells me she is 95 % back to her normal. She has no cough, phlegm or hemoptysis. She has no rest shortness of breath. She has dyspnea on exertion when she walks. She walked today and her heart rate went to 140. Room air saturations are 95%. White blood cell count 7.8. At 10:30 a.m. and at midnight she had 210 minute episodes of abrupt onset heart rate increasing from 68-102. This lasted about 15 minutes. Plan: patient off of inhaled beta agonists for 48 hours. She still having episodes of tachycardia. Her breathing is normal with no wheezing. I will change her ipratropium nebulizers to Incruse 62.5 at 1 puff q.day. I will DC her nebulized budesonide control her without inhaled corticosteroids. Discussed with Dr. Valverde and Dr. Mathias, will follow with you. (2) Tachycardia: Code(s): R00.0 - Tachycardia, unspecified Status: Acute Assessment and Plan: At rest her heart rate was 95. Patient then walked to the bathroom on room air and her saturations remain 93 and her heart rate increased to 100. I then walked the patient in the hallway on room air. We walked for a total of about 2-1/2 minutes and I watched her compliance monitor continuously. After approximately 1 minute she said that she was starting to feel short of breath. Her heart rate was 110 and her saturations were 91. We continued to walk and then she said she was short of breath and she rated this at a scale of 6/10 and her heart rate was 110 and her saturations were 91. We walked for a total of 2-1/2 minutes. She then sat in the bed and after 15 seconds her shortness of breath decreased from a 6/10 to 4/10 with a heart rate of 104 and a saturations 91. After another 15 seconds she decreased to 3/10 with a heart rate of 101 and a saturation of 92. After another 15 seconds she was a at a 1/10 with her shortness of breath and her heart rate was 99 with a saturation of 94. She had no audible wheezing during this activity. Plan: Current walking limited by dyspnea on exertion rather than tachycardia or anxiety. Currently patient with sinus tachycardia and no documented alternative arrhythmia. Will discontinue all beta agonists to see if this is contributing to tachyarrhythmias. Continue metoprolol 25 mg p.o. b.i.d. per pickling solution maker and hospitalist team. 11/27/24: During the overnight oximetry she had 2 episodes of abrupt onset tachycardia going from 68-103. I reviewed reviewed her telemetry monitoring with Cardiology and these episodes were an SVT consistent with atrial tachycardia. Plan: Cardiology has discontinue metoprolol and placed her on diltiazem 120 q.a.m.. Patient have a stress test tomorrow morning. 11/28/24: She tells me that she walked today and her heart rate went to 140. At 10:30 p.m. and at midnight she had 2 different 10-15 minute episodes of abrupt onset heart rate increasing from 68-102. plan: Patient on diltiazem. To have a stress test today per Cardiology. (3) Anxiety: Code(s): F41.9 - Anxiety disorder, unspecified Status: Acute Assessment and Plan: Patient was started on BuSpar 10 mg q.12 hours during her hospitalization on 11/10/2024 and feels this is helping. Plan: Will discuss with hospitalist about a higher dose of BuSpar. 11/27/24: Patient was placed on BuSpar 10 mg q.8 hours yesterday. Will continue. (4) Suspected sleep apnea: Code(s): R29.818 - Other symptoms and signs involving the nervous system Status: Acute Assessment and Plan: Patient with daytime hypersomnia, snoring but no witnessed apneas, BMI 32.1. 11/27/24: Patient had an overnight oximetry on 2 L nasal cannula with recording duration of 7 hours and 19 minutes. Average saturation 97%. Low saturation 74%. Time with saturation less than or equal to 88% was 18 minutes, oxygen desaturation index 4.5. Plan: Patient will need an outpatient sleep study to assess for sleep-related breathing disorder. In the meantime I will try to provide adequate oxygenation. She had desaturations on 2 L nasal cannula and will repeat overnight oximetry on 3 L nasal cannula. 11/28/24: Patient had an overnight oximetry on 3 L nasal cannula recording duration of 8 hours and 10 minutes. Average saturation 99%. Low saturation 85%. Time with saturation less than or equal to 88% was 2 minutes, oxygen desaturation index 1.5. Plan: Patient should use 3 L nasal cannula at night while awaiting outpatient split night sleep study. Subjective Date/time seen: 11/28/24 10:42 Interval history: 11/26/2024: This is a new pulmonary consult for COPD exacerbation. 64-year-old with a history of asthma and COPD, tobacco use, anxiety. Patient was seen by myself for COPD exacerbation during hospitalization from 11/10/2024 through 11/11/2024. I had no PFTs. CT scan of the chest 11/10/2024 with moderate apical predominant centrilobular emphysema. She was smoking half a pack a cigarettes a day. She was treated with BiPAP, steroids, bronchodilators and Levaquin. ABG on the day of discharge was 7.44/35/58 on room air. She was discharged on prednisone 40 x 3 days, Levaquin 750 x 5 days, Advair 115-21 at 2 puffs b.i.d., Incruse Ellipta 62.5 at 1 puff q.day albuterol rescue. For her anxiety she was started on BuSpar 10 p.o. b.i.d. Discharged on 2 L nasal cannula with rest, with activity and at night. No home O2 sessile was performed. Patient tells me she smoked 1 pack for day from age 16 to recently and currently is smoking half a pack. 48 pack years. She is exposed to no secondhand smoke. She has no occupational exposures. Collectively they tell me on a good day she can walk half a block. One year ago she could walk 3 block. She was prescribed home oxygen approximately 1 year ago but only uses it sporadically at night at 2 L NC. Maintained on Advair 115-21 at 2 puffs b.i.d. and Incruse Ellipta 62.5 for many years. 11/17/2024 through 11/20/2024: Patient admitted to the hospital with shortness of breath. Recently finished her antibiotics but was still short of breath with dyspnea on exertion and a heart rate to the 140s. she continued to have palpitations and sinus tachy with activity. She was treated for COPD exacerbation with steroids, possible pneumonia with ceftriaxone and doxycycline. Discharged on prednisone 40 mg a day for 5 days and levofloxacin 750 mg for 5 days. To continue her Advair 115-21 at 2 puffs b.i.d., Incruse Ellipta 62.5 at 1 puff q.day, rescue DuoNebs, rescue albuterol. 11/23/2024 through 11/24/2024: Admitted to [facility] with tachycardia and palpitations. Last night had a heart rate of 160-170. Worse with ambulation. Lungs were clear. Heart rate was 95. Room air saturations 94%. Patient was admitted. Cardiology consult obtained and patient's telemetry showed sinus tachycardia and her metoprolol was increased to 25 b.i.d.. Smoking cessation was provided. Discharged on Advair 115-21 2 puffs b.i.d., Incruse Ellipta 1 puff q.day, Levaquin for 5 days. Metoprolol 25 p.o. b.i.d.. To have a Holter monitor. TSH 3.70. BNP 2880. On 11/25/2024 the patient woke up and had no respiratory issues While sitting. She had a little short shortness of breath when walking. she complains of having episodes that occur sometimes at rest but usually with walking with shortness of breath, fast heart rate and anxiety. She has a hard time telling which comes 1st but says usually her heart rate goes up to 130 sometimes sitting and 145 walking and then she gets short of breath and then anxious. She does not notice active wheezing with these episodes. 11/25/2024: Patient presented to the emergency room with a complaint of fast heart rate, palpitations. Patient notes tachycardia, shortness of breath and anxiety. Patient had mild tachypnea with clear breath sounds. She was tachycardic at 1:33 a.m.. Room air saturations 93%. Blood pressure 116/70. Afebrile. White blood cell count 11.2, eosinophils 1.7%. Creatinine 1.20, Hemoglobin 16.2, hematocrit 50.2. Troponin negative. Chest x-ray no acute changes. She was anxious and tearful. She was given 2 L the LR. 11/26/24: The patient tells me she has had no cough, no fever, no chills, no rigors no hemoptysis. She has had her usual phlegm production of 1 time a day with she is clear. She has no change in her phlegm and no wheezing or changes in her respiratory status over the last 2 days. Her last use of rescue albuterol was on 11/24 and this helped her breathe. She takes rescue albuterol 1 to 2 times a week at baseline. All inhaled beta agonists were discontinued with a last Advair use at 10:49 a.m. Currently the patient is on room air with saturations 94%. She is afebrile. White blood cell count 9.8, creatinine 1.11. At rest her heart rate was 95. Patient then walked to the bathroom on room air and her saturations remain 93 and her heart rate increased to 100. I then walked the patient in the hallway on room air. We walked for a total of about 2-1/2 minutes and I watched her compliance monitor continuously. After approximately 1 minute she said that she was starting to feel short of breath. Her heart rate was 110 and her saturations were 91. We continued to walk and then she said she was short of breath and she rated this at a scale of 6/10 and her heart rate was 110 and her saturations were 91. We walked for a total of 2-1/2 minutes. She then sat in the bed and after 15 seconds her shortness of breath decreased from a 6/10 to 4/10 with a heart rate of 104 and a saturations 91. After another 15 seconds she decreased to 3/10 with a heart rate of 101 and a saturation of 92. After another 15 seconds she was a at a 1/10 with her shortness of breath and her heart rate was 99 with a saturation of 94. She had no audible wheezing during this activity. At home she is telling me that when she walks across the room sometimes her heart rate will get to 145. Later in the day patient had a CT angiogram of the chest which showed no PE, right upper lobe nodule versus scarring with no change compared to 11/10/2024. No evidence of interstitial lung disease, pulmonary edema or pleural effusions. 11/27/2024: Overall patient tells me she slept well. She states she is breathing 95 back % back to her normal. Her cough is normal. No phlegm or hemoptysis. She is afebrile. White blood cell count 8.2, creatinine 0.9., TSH 2.69, free T4 1.55. Currently the patient is on room air with saturations 96%. Patient had an overnight oximetry on 2 L nasal cannula with recording duration of 7 hours and 19 minutes. Average saturation 97%. Low saturation 74%. Time with saturation less than or equal to 88% was 18 minutes, oxygen desaturation index 4.5. During the overnight oximetry she had 2 episodes of abrupt onset tachycardia going from 68-103. I reviewed reviewed her telemetry monitoring with Cardiology and these episodes were an SVT consistent with atrial tachycardia. 11/28/24: Today she tells me her breathing is improved. She tells me she is 95 % back to her normal. She has no cough, phlegm or hemoptysis. She has no rest shortness of breath. She has dyspnea on exertion when she walks. She walked today and her heart rate went to 140. Room air saturations are 95%. White blood cell count 7.8. Patient had an overnight oximetry on 3 L nasal cannula recording duration of 8 hours and 10 minutes. Average saturation 99%. Low saturation 85%. Time with saturation less than or equal to 88% was 2 minutes, oxygen desaturation index 1.5. At 10:30 a.m. and at midnight she had 210 minute episodes of abrupt onset heart rate increasing from 68-102. This lasted about 15 minutes. DATA 11/26/24: CTA chest PE protocol Ordering provider: Osman Valverde MD History: 64 years Female with . shortness of breath . Comparison: None. Technique: CT angiogram chest was performed following timed intravenous injection of contrast. Thin slice axial images and reformatted coronal images were obtained. Three dimensional reformatted images of the chest were also obtained using a [employer] workstation. . Automated exposure control and iterative reconstruction technique were employed. The dose-length product was 822.01 mGy-cm. 100 mL Omnipaque 350 was given IV. Findings: PULMONARY ARTERIES: No pulmonary embolus. VISUALIZED THORACIC INLET: Normal. MEDIASTINUM: Aorta/coronary arteries: Mild atheromatous disease. Heart/other: The heart is not enlarged. Lymph nodes: No mediastinal or hilar adenopathy. LUNGS: Possible nodule or focal atelectasis seen anteriorly in the right upper lobe which measures 1.1 x 1.2 x 1.4 cm. No pulmonary masses. No infiltrates or effusions. No pneumothorax. VISUALIZED UPPER ABDOMEN: Right renal cyst. lobated kidneys is noted. Otherwise, the visualized upper abdomen is normal. MUSCULOSKELETAL: Soft tissues: The superficial soft tissues are normal. Bones: Fracture is seen in T6. Age appropriate degenerative changes of the spine. IMPRESSION: 1. No pulmonary embolism. 2. No acute cardiopulmonary pathology. 3. Focal area of atelectasis versus pneumonia versus nodule seen anteriorly in the right upper lobe measuring 1.1 x 1.2x1.4 cm. 4. Compression fracture in the T6 vertebra. 11/23/24: Echo Summary 1. Technically difficult study with poorly visualized views. 2. Overall preserved biventricular systolic function. Left Ventricle The left ventricle is normal in size and systolic function. The left ventricular ejection fraction is visually estimated to be 60-65%. Right Ventricle The right ventricle is normal in size and systolic function. Left Atria The left atrium is normal size. Right Atria The right atrium is normal size. no RVSP Calculated 11/10/24; CT diagnostic chest wo con Ordering provider: Parish Ragsdale MD History: 64 years Female with . COPD . Comparison: None. Technique: CT chest without IV contrast. Radiation reduction technique utilized.The dose-length product was 365.56 mGy-cm. FINDINGS: VISUALIZED THORACIC INLET: Normal. Retropharyngeal carotid arteries. MEDIASTINUM: Aorta/coronary arteries: Mild atheromatous disease. Heart/other: The heart is not enlarged. Lymph nodes: No mediastinal or hilar adenopathy. LUNGS: Underlying emphysematous changes. No pulmonary nodules or masses. No infiltrates or effusions. No pneumothorax. Atelectasis versus focal pneumonia is seen in the right upper lobe. VISUALIZED UPPER ABDOMEN: Right kidney small cyst measuring 1.8 cm. Status post cholecystectomy. Otherwise, the visualized upper abdomen is normal. MUSCULOSKELETAL: Soft tissues: The superficial soft tissues are normal. Bones: Age appropriate degenerative changes of the spine. Burst fracture is seen in T6 which may be acute or chronic. MRI evaluation advised. IMPRESSION: 1. Focal area of atelectasis versus pneumonia in the right upper lobe anteriorly. Otherwise, No evidence of pneumonia or pneumothorax. 2. Underlying emphysematous changes. 3. Burst fracture of T6. MRI is advised. Review of Systems Constitutional: Constitutional: Reports no additional constitutional complaints Eyes: Eyes: Reports no additional eye complaints ENT: Reports system reviewed and no additional complaints, except as documented Cardiovascular: Cardiovascular: Reports no additional cardiovascular complaints Respiratory: Respiratory: Reports no additional respiratory complaints Gastrointestinal: Gastrointestinal: Reports no additional gastrointestinal complaints Musculoskeletal: Musculoskeletal: Reports no additional musculoskeletal complaints Neurologic: Reports system reviewed and no additional complaints, except as documented Psychiatric: Psychiatric: Reports no additional psychiatric complaints Endocrine: Endocrine: Reports no additional endocrine complaints Hematologic/Lymphatic: Hematologic/Lymphatic: Reports no additional hematologic/lymphatic complaints Allergic/Immunologic: Allergic/Immunologic: Reports no additional allergic/immunologic complaints Exam Const: General: cooperative, healthy appearing and comfortable Orientation/consciousness: oriented to person, oriented to place and oriented to time HENMT: Head: normal to inspection Ears: hearing grossly normal bilaterally Eyes: General: appearance normal, both eyes and all related structures Neck: Neck: normal visual inspection Chest: Chest palpation & inspection: normal inspection of the chest Resp: Effort & Inspection: normal respiratory effort and able to speak in complete sentences Auscultation: no crackles, no rales, no rhonchi, no wheezes and lung sounds not diminished Other: no wheezing. Cardio: Jugular venous distension: no JVD GI: Inspection: normal to inspection Skin: General skin exam: normal color Neuro: General: oriented to person, oriented to place and oriented to time Extrem: General: normal to inspection Psych: Appearance: grossly normal Objective Data Vital Signs Vital Signs: Vital Signs - 24 hr 11/27/24 12:00 11/27/24 14:00 11/27/24 15:33 Temperature Pulse Rate 74 82 81 Respiratory Rate 20 Blood Pressure 97/48 L Pulse Oximetry 97 Oxygen Delivery Fraction of Inspired Oxygen 11/27/24 15:40 11/27/24 16:00 11/27/24 19:51 Temperature 36.5 C Pulse Rate 79 83 80 Respiratory Rate 20 20 Blood Pressure 113/48 L Pulse Oximetry 95 Oxygen Delivery Fraction of Inspired Oxygen 11/27/24 20:07 11/27/24 20:09 11/27/24 21:00 Temperature Pulse Rate 80 78 78 Respiratory Rate 20 20 20 Blood Pressure Pulse Oximetry 98 98 Oxygen Delivery Room Air Room Air Fraction of Inspired Oxygen 21 21 11/27/24 21:00 11/28/24 00:00 11/28/24 04:00 Temperature Pulse Rate 81 66 60 Respiratory Rate Blood Pressure Pulse Oximetry Oxygen Delivery Fraction of Inspired Oxygen 11/28/24 04:38 11/28/24 05:05 11/28/24 05:06 Temperature Pulse Rate 60 70 Respiratory Rate 20 20 Blood Pressure Pulse Oximetry 97 Oxygen Delivery Fraction of Inspired Oxygen 11/28/24 05:10 11/28/24 07:38 11/28/24 07:38 Temperature 36.6 C Pulse Rate 75 78 Respiratory Rate 20 20 Blood Pressure 103/41 L Pulse Oximetry 93 94 Oxygen Delivery Room Air Fraction of Inspired Oxygen 21 11/28/24 07:47 11/28/24 08:00 11/28/24 08:00 Temperature Pulse Rate 72 77 Respiratory Rate 20 Blood Pressure Pulse Oximetry 94 Oxygen Delivery Room Air Fraction of Inspired Oxygen 11/28/24 08:57 Temperature Pulse Rate Respiratory Rate Blood Pressure 121/52 L Pulse Oximetry Oxygen Delivery Fraction of Inspired Oxygen Intake/Output Intake/Output: Intake & Output 11/25/24 11/26/24 11/27/24 11/28/24 23:59 23:59 23:59 23:59 Intake Total 1969 1720 0 Balance 1969 1720 0 Meds/Results Medications: Active Medications Generic Name Dose Route Start Last Admin Trade Name Freq PRN Reason Stop Dose Admin Aspirin 81 mg 11/26/24 08:00 11/27/24 09:37 Aspirin 81 Mg Chewable Tablet PO 81 mg DAILY@0800 [facility] Administration Budesonide 0.5 mg 11/26/24 20:00 11/28/24 07:38 Budesonide Respule Neb 0.5 Mg/2 Ml Amp INHALATION 0.5 mg Q12HRT [facility] Administration Buspirone HCl 10 mg 11/26/24 22:00 11/28/24 06:09 Buspirone Hcl 10 Mg Tablet PO 10 mg Q8HR EMILY Administration Diltiazem HCl 120 mg 11/27/24 10:20 11/27/24 12:21 Diltiazem Hcl Cd 120 Mg Cap.24hr PO 120 mg QAM EMILY Administration Enoxaparin Sodium 40 mg 11/27/24 09:00 11/27/24 09:38 Enoxaparin 40 Mg/0.4 Ml Syringe SUB-Q 40 mg DAILY EMILY Administration Ipratropium [place] 0.5 mg 11/26/24 16:00 11/28/24 07:38 Ipratropium Br 0.02% Inh Soln 0.5 Mg/2.5 Ml Vial INHALATION 0.5 mg Q4HRT EMILY Administration Nicotine 1 patch 11/26/24 09:00 11/27/24 09:38 Nicotine (*Pbkc) 21 Mg Patch TRANSDERM 1 patch DAILY EMILY Administration Nitroglycerin 0.4 mg 11/26/24 09:52 Nitroglycerin Sl 0.4 Mg Tablet SUBLINGUAL Q5MIN PRN Chest Pain Perflutren Lipid Microsphere 0 ml 11/26/24 11:25 Perflutren Lipid Microspheres 1.5 Ml Vial Diluted To 10 Ml Total Volume IV PUSH 11/29/24 11:25 ONCE PRN adequate visualization Protocol Rosuvastatin Calcium 20 mg 11/26/24 18:00 11/27/24 17:49 Rosuvastatin 20 Mg Tablet PO 20 mg EVENING EMILY Administration Radiology Results: ITS Impressions Chest X-Ray 11/25/24 23:01 IMPRESSION: No acute cardiopulmonary pathology. Chest CTA 11/26/24 18:42 IMPRESSION: 1. No pulmonary embolism. 2. No acute cardiopulmonary pathology. 3. Focal area of atelectasis versus pneumonia versus nodule seen anteriorly in the right upper lobe measuring 1.1 x 1.2x1.4 cm. 4. Compression fracture in the T6 vertebra. Labs Labs: Laboratory Results - last 24 hr 11/28/24 06:56 WBC 7.8 RBC 4.25 Hgb 13.7 Hct 43.3 MCV 101.9 H MCH 32.2 MCHC 31.6 L RDW 13.8 Plt Count 174 MPV 10.2 Immature Gran % (Auto) 0.8 H Neut % (Auto) 69.4 Lymph % (Auto) 20.2 [place] % (Auto) 6.7 Eos % (Auto) 2.6 Baso % (Auto) 0.3 Lymph # (Auto) 1.57 [place] # (Auto) 0.5 Eos # (Auto) 0.2 Baso # (Auto) 0.0 Abs Immat Gran (auto) 0.06 H Absolute Neuts (auto) 5.4 Absolute Nucleated RBC 0.000 Nucleated RBC % 0.0 Sodium 136 L Potassium 3.7 Chloride 103 Carbon Dioxide 30 Anion Gap 3 L BUN 11 Creatinine 0.83 Estim Creat Clear Calc 65 Estimated GFR > 60 Glucose 98 Calcium 8.7 Magnesium 2.1 Total Bilirubin 0.6 AST 27 ALT 41 H Alkaline Phosphatase 35 L Total Protein 6.0 L Albumin 3.4 L
--- NOTE | 2024-11-28 12:22 | PM.PNCARD ---
Progress Note: A&P Assessment and Plan (1) Palpitations: Code(s): R00.2 - Palpitations Status: Acute Assessment and Plan: She does have some SVT which appears to be in atrial tachycardia. Cardiac workup recently has been completely unremarkable including an echocardiogram. EKG is also non concerning. She also has a catheterization from less than a year ago which shows minimal coronary disease. Will DC metoprolol and use diltiazem. This may be better SVT management/tachycardia and given underlying COPD, will avoid the beta-idalia. (2) COPD with exacerbation: Code(s): J44.1 - Chronic obstructive pulmonary disease with (acute) exacerbation Status: Acute Assessment and Plan: She needs a pulmonology evaluation and better treatment as I believe that this is ultimately the cause of her recurrent admissions and recent issues. Will consult Dr. Ragsdale (3) Suspected sleep apnea: Code(s): R29.818 - Other symptoms and signs involving the nervous system Status: Acute (4) Tobacco abuse: Code(s): Z72.0 - Tobacco use Status: Acute Assessment and Plan: Needs to stop and advised to quit (5) CAD (coronary artery disease): Code(s): I25.10 - Atherosclerotic heart disease of [place] coronary artery without angina pectoris Status: Acute Assessment and Plan: She has minimal coronary disease by catheterization in December of 2023. This is not likely to be angina. EKG is unremarkable. Recommend to continue rosuvastatin, metoprolol and aspirin. Because of her ongoing dyspnea with exertion symptoms, lexiscan was ordered and performed today. Awaiting results. Unlikely she has any significant CAD. (6) SVT (supraventricular tachycardia): Code(s): I47.10 - Supraventricular tachycardia, unspecified Status: Acute Assessment and Plan: Appears to be atrial tachycardia. Plan as above. Transition from metoprolol to diltiazem Subjective Date/time seen: 11/28/24 12:22 Interval history: 64-year-old with exertional shortness of breath and palpitations. Follow-up on 11/27/2024: Did have some salvos of atrial tachycardia with heart rates in the 110s. She was symptomatic. She was also mildly tachycardic by getting up and simply walking around. No arrhythmia though by doing so. She was also short of breath with activity. No syncope, chest pain 11/28/2024: Continues to have shortness of breath with activity. Denies chest pain. Seeing her in the cardiac stress lab-tolerated test well but did experience shortness of breath which resolved by the end of the test. Review of Systems Review of Systems: All systems reviewed & are unremarkable except as noted in HPI and below Constitutional: Constitutional: Denies body ache(s) and Denies excessive sweating Eyes: Eyes: Denies blurry vision ENT: Reports Normal hearing present Cardiovascular: Cardiovascular: Denies chest pain, Reports palpitations and Reports dyspnea Respiratory: Respiratory: Reports dyspnea Gastrointestinal: Gastrointestinal: Denies abdominal pain Genitourinary: Genitourinary: Denies hematuria Musculoskeletal: Musculoskeletal: Denies back pain Integumentary/Breasts: Skin/Breast: Denies dry skin Neurologic: Reports Normal hearing present and Denies Abnormal speech present Psychiatric: Psychiatric: Reports anxiety Endocrine: Endocrine: Denies excessive sweating and Reports palpitations Hematologic/Lymphatic: Hematologic/Lymphatic: Denies easy bleeding Allergic/Immunologic: Allergic/Immunologic: Denies GI upset with certain foods Exam Narrative: Awake alert oriented a bit anxious but appears stated age Const: General: comfortable and no acute distress HENMT: Face/Nose/Sinus: Normal nares present Mouth: Yes moist mucous membranes Eyes: General: appearance normal, both eyes and all related structures Sclera: sclerae normal Neck: Neck: supple and no JVD Chest: Other: No reproducible chest wall pain to palpation Resp: Auscultation: rhonchi, no wheezes and diminished lung sounds Cardio: Rate: regular rate Rhythm: regular rhythm Heart sounds: no murmurs GI: Inspection: non-distended Auscultation: normal bowel sounds Skin: General skin exam: normal color Neuro: Cranial nerves: Yes Normal hearing present Speech: normal speech and No Abnormal speech present Extrem: General: normal to inspection Psych: Mental Status: mental status grossly normal Affect: normal affect Objective Data Vital Signs Vital Signs: Vital Signs - 24 hr 11/27/24 14:00 11/27/24 15:33 11/27/24 15:40 Temperature Pulse Rate 82 81 79 Respiratory Rate 20 20 Blood Pressure 97/48 L Pulse Oximetry 97 Oxygen Delivery Fraction of Inspired Oxygen 11/27/24 16:00 11/27/24 19:51 11/27/24 20:07 Temperature 36.5 C Pulse Rate 83 80 80 Respiratory Rate 20 20 Blood Pressure 113/48 L Pulse Oximetry 95 Oxygen Delivery Fraction of Inspired Oxygen 11/27/24 20:09 11/27/24 21:00 11/27/24 21:00 Temperature Pulse Rate 78 78 81 Respiratory Rate 20 20 Blood Pressure Pulse Oximetry 98 98 Oxygen Delivery Room Air Room Air Fraction of Inspired Oxygen 21 21 11/28/24 00:00 11/28/24 04:00 11/28/24 04:38 Temperature Pulse Rate 66 60 60 Respiratory Rate 20 Blood Pressure Pulse Oximetry Oxygen Delivery Fraction of Inspired Oxygen 11/28/24 05:05 11/28/24 05:06 11/28/24 05:10 Temperature 36.6 C Pulse Rate 70 75 Respiratory Rate 20 20 Blood Pressure 103/41 L Pulse Oximetry 97 93 Oxygen Delivery Fraction of Inspired Oxygen 11/28/24 07:38 11/28/24 07:38 11/28/24 07:47 Temperature Pulse Rate 78 72 Respiratory Rate 20 20 Blood Pressure Pulse Oximetry 94 Oxygen Delivery Room Air Fraction of Inspired Oxygen 21 11/28/24 08:00 11/28/24 08:00 11/28/24 08:57 Temperature Pulse Rate 77 Respiratory Rate Blood Pressure 121/52 L Pulse Oximetry 94 Oxygen Delivery Room Air Fraction of Inspired Oxygen Intake/Output Intake/Output: Intake & Output 11/25/24 11/26/24 11/27/24 11/28/24 23:59 23:59 23:59 23:59 Intake Total 1969 1720 0 Balance 1969 1720 0 Meds/Results Medications: Active Medications Generic Name Dose Route Start Last Admin Trade Name Freq PRN Reason Stop Dose Admin Aspirin 81 mg 11/26/24 08:00 11/27/24 09:37 Aspirin 81 Mg Chewable Tablet PO 81 mg DAILY@0800 EMILY Administration Buspirone HCl 10 mg 11/26/24 22:00 11/28/24 06:09 Buspirone Hcl 10 Mg Tablet PO 10 mg Q8HR EMILY Administration Diltiazem HCl 120 mg 11/27/24 10:20 11/27/24 12:21 Diltiazem Hcl Cd 120 Mg Cap.24hr PO 120 mg QAM EMILY Administration Enoxaparin Sodium 40 mg 11/27/24 09:00 11/27/24 09:38 Enoxaparin 40 Mg/0.4 Ml Syringe SUB-Q 40 mg DAILY EMILY Administration Nicotine 1 patch 11/26/24 09:00 11/27/24 09:38 Nicotine (*Pbkc) 21 Mg Patch TRANSDERM 1 patch DAILY [facility] Administration Nitroglycerin 0.4 mg 11/26/24 09:52 Nitroglycerin Sl 0.4 Mg Tablet SUBLINGUAL Q5MIN PRN Chest Pain Perflutren Lipid Microsphere 0 ml 11/26/24 11:25 Perflutren Lipid Microspheres 1.5 Ml Vial Diluted To 10 Ml Total Volume IV PUSH 11/29/24 11:25 ONCE PRN adequate visualization Protocol Rosuvastatin Calcium 20 mg 11/26/24 18:00 11/27/24 17:49 Rosuvastatin 20 Mg Tablet PO 20 mg EVENING [facility] Administration Umeclidinium [place] 1 puff 11/28/24 10:50 Umeclidinium [place] 62.5 Mcg Ellipta INHALATION DAILYRT [facility] Radiology Results: ITS Impressions Chest X-Ray 11/25/24 23:01 IMPRESSION: No acute cardiopulmonary pathology. Chest CTA 11/26/24 18:42 IMPRESSION: 1. No pulmonary embolism. 2. No acute cardiopulmonary pathology. 3. Focal area of atelectasis versus pneumonia versus nodule seen anteriorly in the right upper lobe measuring 1.1 x 1.2x1.4 cm. 4. Compression fracture in the T6 vertebra. Labs Labs: Laboratory Results - last 24 hr 11/28/24 06:56 WBC 7.8 RBC 4.25 Hgb 13.7 Hct 43.3 MCV 101.9 H MCH 32.2 MCHC 31.6 L RDW 13.8 Plt Count 174 MPV 10.2 Immature Gran % (Auto) 0.8 H Neut % (Auto) 69.4 Lymph % (Auto) 20.2 [place] % (Auto) 6.7 Eos % (Auto) 2.6 Baso % (Auto) 0.3 Lymph # (Auto) 1.57 [place] # (Auto) 0.5 Eos # (Auto) 0.2 Baso # (Auto) 0.0 Abs Immat Gran (auto) 0.06 H Absolute Neuts (auto) 5.4 Absolute Nucleated RBC 0.000 Nucleated RBC % 0.0 Sodium 136 L Potassium 3.7 Chloride 103 Carbon Dioxide 30 Anion Gap 3 L BUN 11 Creatinine 0.83 Estim Creat Clear Calc 65 Estimated GFR > 60 Glucose 98 Calcium 8.7 Magnesium 2.1 Total Bilirubin 0.6 AST 27 ALT 41 H Alkaline Phosphatase 35 L Total Protein 6.0 L Albumin 3.4 L
[2024-11-28] MEDS: ASPIRIN 81 MG CHEWABLE TABLET PO (13:32)
[2024-11-28] MEDS: dilTIAZem HCL CD 120 MG CAP.24HR PO (13:32)
[2024-11-28] MEDS: ENOXAPARIN 40 MG/0.4 ML SYRINGE SUB-Q (13:33)
[2024-11-28] MEDS: NICOTINE (*PBKC) 21 MG PATCH 1 PATCH TRANSDERM (13:33)
[2024-11-28] MEDS: UMECLIDINIUM BROMIDE 62.5 MCG ELLIPTA 1 PUFF INHALATION (13:44)
--- NOTE | 2024-11-28 14:02 | P.PNIM_ITS ---
Progress Note: A&P Assessment and Plan (1) Anxiety: Code(s): F41.9 - Anxiety disorder, unspecified Status: Acute (2) Coronary artery disease: Onset Date: 10/2023 Code(s): I25.10 - Atherosclerotic heart disease of [place] coronary artery without angina pectoris Status: Acute (3) Tachycardia: Code(s): R00.0 - Tachycardia, unspecified Status: Acute (4) Palpitations: Code(s): R00.2 - Palpitations Status: Acute (5) Chronic obstructive pulmonary disease: Code(s): J44.9 - Chronic obstructive pulmonary disease, unspecified Status: Acute Plan 64-year-old female with history of coronary disease, COPD, anxiety, grade 1 diastolic dysfunction and recent hospitalizations multiple times since the beginning of this month. Patient presents to the emergency room with complaints of palpitations and elevated heart rate within the heart rates in the 160s and 170s with activity. She endorses shortness of breath when this happens. She has been evaluated and admitted to the hospital multiple times this month for similar and discharged home with a Holter monitor which she did 2 days ago. She turned in the Holter monitor yesterday after 24 observation and came to the ER as she was having palpitations and noted that her heart rate was in the 170s. S he endorses pain in her chest when this happens and severe anxiety. She has been evaluated multiple times by Cardiology with recommendations for upping her metoprolol and will follow up with her on outpatient basis but this did not happen yet as she returned to the emergency department almost immediately. In the ER patient was tachycardic in 130s otherwise vitals were stable. Laboratory studies revealed WBC of 11.2 hematocrit 50 16 platelet 272 Chem panel with normal electrolytes creatinine 1.2 blood sugar was 121. Renal function slightly elevated from her baseline. Troponin was negative. LFTs were normal. She received 2 L of LR in the ER. BNP was elevated at 2880 recent admission EKG with sinus tachycardia. Chest x-ray with no acute cardiopulmonary abnormality. She is admitted in the setting for further observation. She reports that she gets tachycardic whenever she exerts. Nonobstructive coronary artery disease by catheterization January of 2024 COPD on home oxygen 2 L at baseline. Possible COPD exacerbation. Mild wheezing. Due to CT to further evaluate due to ongoing tachycardia with exertion. Recent echocardiogram normal EF. Valves were not well visualized. Repeat echocardiogram to check her valves pending. Holter monitor was recently done which is yet to be reviewed. Continue to monitor on telemetry Episodes of SVT/NSVT: Cardiology board. Stress test normal. Metoprolol has been switched to diltiazem for treatment of SVT Tobacco abuse Grade 1 diastolic dysfunction echo 11/23/2024 with EF 60-65% valves were not well visualized Anxiety disorder on buspirone Possible sleep apnea apnea link with AHI 32.1 need sleep study as an outpatient basis DVT prophylaxis Lovenox Code status full code Subjective Date/time seen: 11/28/24 14:02 Interval history: No overnight events. Telemetry reviewed. Going for stress test today. No chest pain. Review of Systems Review of Systems: All systems reviewed & are unremarkable except as noted in HPI and below Exam Narrative: GENERAL: Morbidly obese, not in acute distress HEAD: [Normocephalic, atraumatic.] EYES: [PERRLA and EOMI.] ENT: Nares clear, no rhinorrhea or epistaxis. Mucous membranes moist. NECK: Supple. CHEST: Clear to auscultation bilaterally, No respiratory distress no wheezes HEART: Regular rate with regular rhythm. No murmur heard. [Normal peripheral pulses.] ABDOMEN: [Soft, nondistended], [nontender], [No rigidity or guarding] EXTREMITIES: Normal range of motion. [No edema.] SKIN: Warm, dry, no rash. NEURO: [No focal deficits]. Alert and oriented [x3.] PSYCH: [Normal mood and affect.] Objective Data Vital Signs Vital Signs: Vital Signs - 24 hr 11/27/24 15:33 11/27/24 15:40 11/27/24 16:00 Temperature Pulse Rate 81 79 83 Respiratory Rate 20 20 Blood Pressure Pulse Oximetry Oxygen Delivery Fraction of Inspired Oxygen 11/27/24 19:51 11/27/24 20:07 11/27/24 20:09 Temperature 97.7 F Pulse Rate 80 80 78 Respiratory Rate 20 20 20 Blood Pressure 113/48 L Pulse Oximetry 95 98 Oxygen Delivery Room Air Fraction of Inspired Oxygen 11/27/24 21:00 11/27/24 21:00 11/28/24 00:00 Temperature Pulse Rate 78 81 66 Respiratory Rate 20 Blood Pressure Pulse Oximetry 98 Oxygen Delivery Room Air Fraction of Inspired Oxygen 21 11/28/24 04:00 11/28/24 04:38 11/28/24 05:05 Temperature Pulse Rate 60 60 70 Respiratory Rate 20 20 Blood Pressure Pulse Oximetry Oxygen Delivery Fraction of Inspired Oxygen 11/28/24 05:06 11/28/24 05:10 11/28/24 07:38 Temperature 97.8 F Pulse Rate 75 Respiratory Rate 20 Blood Pressure 103/41 L Pulse Oximetry 97 93 94 Oxygen Delivery Room Air Fraction of Inspired Oxygen 21 11/28/24 07:38 11/28/24 07:47 11/28/24 08:00 Temperature Pulse Rate 78 72 Respiratory Rate 20 20 Blood Pressure Pulse Oximetry 94 Oxygen Delivery Room Air Fraction of Inspired Oxygen 11/28/24 08:00 11/28/24 08:57 11/28/24 12:00 Temperature Pulse Rate 77 95 Respiratory Rate Blood Pressure 121/52 L Pulse Oximetry Oxygen Delivery Fraction of Inspired Oxygen 11/28/24 13:31 11/28/24 13:37 11/28/24 13:44 Temperature 97.5 F L Pulse Rate 99 Respiratory Rate 118 H Blood Pressure 135/68 135/68 Pulse Oximetry 97 91 Oxygen Delivery Room Air Fraction of Inspired Oxygen 21 11/28/24 13:44 Temperature Pulse Rate 86 Respiratory Rate 20 Blood Pressure Pulse Oximetry Oxygen Delivery Fraction of Inspired Oxygen Intake/Output Intake/Output: Intake & Output 11/25/24 11/26/24 11/27/24 11/28/24 23:59 23:59 23:59 23:59 Intake Total 1969 1720 0 Balance 1969 1720 0 Meds/Results Medications: Active Medications Generic Name Dose Route Start Last Admin Trade Name Freq PRN Reason Stop Dose Admin Aspirin 81 mg 11/26/24 08:00 11/28/24 13:32 Aspirin 81 Mg Chewable Tablet PO 81 mg DAILY@0800 [facility] Administration Buspirone HCl 10 mg 11/26/24 22:00 11/28/24 13:34 Buspirone Hcl 10 Mg Tablet PO 10 mg Q8HR EMILY Administration Diltiazem HCl 120 mg 11/27/24 10:20 11/28/24 13:32 Diltiazem Hcl Cd 120 Mg Cap.24hr PO 120 mg QAM EMILY Administration Enoxaparin Sodium 40 mg 11/27/24 09:00 11/28/24 13:33 Enoxaparin 40 Mg/0.4 Ml Syringe SUB-Q 40 mg DAILY EMILY Administration Nicotine 1 patch 11/26/24 09:00 11/28/24 13:33 Nicotine (*Pbkc) 21 Mg Patch TRANSDERM 1 patch DAILY EMILY Administration Nitroglycerin 0.4 mg 11/26/24 09:52 Nitroglycerin Sl 0.4 Mg Tablet SUBLINGUAL Q5MIN PRN Chest Pain Perflutren Lipid Microsphere 0 ml 11/26/24 11:25 Perflutren Lipid Microspheres 1.5 Ml Vial Diluted To 10 Ml Total Volume IV PUSH 11/29/24 11:25 ONCE PRN adequate visualization Protocol Rosuvastatin Calcium 20 mg 11/26/24 18:00 11/27/24 17:49 Rosuvastatin 20 Mg Tablet PO 20 mg EVENING EMILY Administration Umeclidinium [place] 1 puff 11/28/24 10:50 11/28/24 13:44 Umeclidinium [place] 62.5 Mcg Ellipta INHALATION 1 puff DAILYRT EMILY Administration Radiology Results: ITS Impressions Chest X-Ray 11/25/24 23:01 IMPRESSION: No acute cardiopulmonary pathology. Chest CTA 11/26/24 18:42 IMPRESSION: 1. No pulmonary embolism. 2. No acute cardiopulmonary pathology. 3. Focal area of atelectasis versus pneumonia versus nodule seen anteriorly in the right upper lobe measuring 1.1 x 1.2x1.4 cm. 4. Compression fracture in the T6 vertebra. Lexiscan Stress Test 11/28/24 13:25 IMPRESSION: 1. Normal myocardial perfusion at rest and during stress. 2. Left ventricular ejection fraction measuring >70%. Labs Labs: Laboratory Results - last 24 hr 11/28/24 06:56 WBC 7.8 RBC 4.25 Hgb 13.7 Hct 43.3 MCV 101.9 H MCH 32.2 MCHC 31.6 L RDW 13.8 Plt Count 174 MPV 10.2 Immature Gran % (Auto) 0.8 H Neut % (Auto) 69.4 Lymph % (Auto) 20.2 [place] % (Auto) 6.7 Eos % (Auto) 2.6 Baso % (Auto) 0.3 Lymph # (Auto) 1.57 [place] # (Auto) 0.5 Eos # (Auto) 0.2 Baso # (Auto) 0.0 Abs Immat Gran (auto) 0.06 H Absolute Neuts (auto) 5.4 Absolute Nucleated RBC 0.000 Nucleated RBC % 0.0 Sodium 136 L Potassium 3.7 Chloride 103 Carbon Dioxide 30 Anion Gap 3 L BUN 11 Creatinine 0.83 Estim Creat Clear Calc 65 Estimated GFR > 60 Glucose 98 Calcium 8.7 Magnesium 2.1 Total Bilirubin 0.6 AST 27 ALT 41 H Alkaline Phosphatase 35 L Total Protein 6.0 L Albumin 3.4 L
[2024-11-28] MEDS: ROSUVASTATIN 20 MG TABLET PO (16:45)
[2024-11-29] VITALS (10 sets, daily range): BP systolic 110–116; BP diastolic 48–60; PULSE 71–131; RESP 18–20; TEMP 36.5; O2SAT 93–97
[2024-11-29] MEDS: busPIRone HCL 10 MG TABLET PO ×2 (05:16→14:49)
[2024-11-29 05:21] LABS: Basophils Percent Auto 0.2 % (0.2-1.2); Eosinophils Absolute Auto 0.1 K/mm3 (0-0.3); Eosinophils Percent Auto 1.5 % (0-4.4); Hematocrit 42.1 % (37.0-47.0); Hemoglobin 13.4 g/dL (12.0-15.0); Immature Granulocyte Absolute 0.06 K/mm3 (0.00-0.031); Immature Granulocyte Percent A 0.7 % (0-0.5); Lymphocytes Absolute Auto 1.82 K/mm3 (0.9-3.2); Lymphocytes Percent Auto 20.4 % (18.3-44.2); Mean Corpuscular HGB Conc 31.8 g/dl (32-36); Mean Corpuscular Hemoglobin 31.9 pg (26-34); Mean Corpuscular Volume 100.2 fl (80-100); Mean Platelet Volume 10.6 fl (7.4-10.4); Monocytes Absolute Auto 0.5 K/mm3 (0.1-0.6); Monocytes Percent Auto 5.4 % (2.6-8.5); Neutrophils Absolute Auto 6.4 K/mm3 (1.3-6.7); Neutrophils Percent Auto 71.8 % (45.5-73.1); Platelet Count Result 190 k/mm3 (150-375); Red Cell Distribution Width 13.8 % (11.5-14.5); White Blood Count 8.9 K/mm3 (4.5-10.0)
[2024-11-29 05:33] LABS: Alanine Aminotransferase 42 U/L (6-35); Albumin Level 3.6 g/dL (3.5-5.1); Alkaline Phosphatase 38 U/L (38-126); Anion Gap 7 mmol/L (4-12); Aspartate Amino Transferase 31 U/L (14-36); Bilirubin,Total 0.6 mg/dL (0.2-1.3); Blood Urea Nitrogen 10 mg/dL (7-17); Calcium 8.6 mg/dL (8.4-10.2); Carbon Dioxide 25 mmol/L (22-30); Chloride 104 mmol/L (98-107); Estimated CRCL calculation 63 ml/min; Estimated Glomerular Filt Rate > 60; Glucose 101 mg/dL (65-110); Magnesium 2.1 mg/dL (1.6-2.3); Potassium 3.6 mmol/L (3.4-5.0); Sodium 136 mmol/L (137-145)
[2024-11-29] MEDS: dilTIAZem HCL CD 120 MG CAP.24HR PO (07:50)
[2024-11-29] MEDS: NICOTINE (*PBKC) 21 MG PATCH 1 PATCH TRANSDERM (07:50)
[2024-11-29] MEDS: ASPIRIN 81 MG CHEWABLE TABLET PO (07:50)
[2024-11-29] MEDS: ENOXAPARIN 40 MG/0.4 ML SYRINGE SUB-Q (07:51)
[2024-11-29] MEDS: UMECLIDINIUM BROMIDE 62.5 MCG ELLIPTA 1 PUFF INHALATION (09:27)
--- NOTE | 2024-11-29 09:43 | P.PNPL_ITS ---
Progress Note: A&P Assessment and Plan (1) Chronic obstructive pulmonary disease: Code(s): J44.9 - Chronic obstructive pulmonary disease, unspecified Status: Acute Assessment and Plan: Patient tells me she smoked 1 pack for day from age 16 to recently and currently is smoking half a pack. Total 48 pack years. I have no no PFTs Patient tells me she quit on 11/23/2024. CT scan of the chest 11/10/2024 with moderate apical predominant centrilobular emphysema. She is exposed to no secondhand smoke. She has no occupational exposures. Collectively they tell me on a good day she can walk half a block. One year ago she could walk 3 block. She was prescribed home oxygen approximately 1 year ago but only uses it sporadically at night at 2 L NC. Maintained on Advair 115-21 at 2 puffs b.i.d. and Incruse Ellipta 62.5 for many years. currently the patient complains of dyspnea on exertion, tachycardic episodes, anxiety episodes, with no change in her chronic phlegm of 1 time a day, no change in the color of her phlegm which is clear, and no significant change in her dyspnea on exertion. She has intermittent wheezing. plan: The patient does not have typical symptoms of COPD exacerbation. Given her reported tachycardic episodes I will discontinue all beta agonists and attempt to control her with ipratropium nebulizers 0.5 mg q.4 hours and budesonide nebulizers 0.5 mg Q 12 hours. I do not feel she needs systemic steroids at this time. She has no infectious complaints and I do not feel she needs antibiotics. Agree with CT angiogram of the chest to exclude PE. Patient will have an echocardiogram. Patient is being monitored on telemetry for tachyarrhythmias. Later in the day patient had a CT angiogram of the chest which showed No PE, right upper lobe nodule versus scarring with no change compared to 11/10/2024. No evidence of interstitial lung disease, pulmonary edema or pleural effusions. 11/27/2024: Overall patient tells me she slept well. She states she is breathing 95 back % back to her normal. Her cough is normal. No phlegm or hemoptysis. She is afebrile. White blood cell count 8.2, creatinine 0.9., TSH 2.69, free T4 1.55. Currently the patient is on room air with saturations 96%. Plan: Breathing has improved off of all inhaled beta agonists for 24 hours. She has been on ipratropium nebulizer Q 4 budesonide 500 mcg b.i.d.. Will cont inue at this time. Patient is having SVT consistent with atrial tachycardia and Cardiology would discontinue metoprolol in place her on diltiazem. I will repeat overnight oximetry on 3 L nasal cannula. 11/28/24: Today she tells me her breathing is improved. She tells me she is 95 % back to her normal. She has no cough, phlegm or hemoptysis. She has no rest shortness of breath. She has dyspnea on exertion when she walks. She walked today and her heart rate went to 140. Room air saturations are 95%. White blood cell count 7.8. At 10:30 a.m. and at midnight she had 210 minute episo francoise of abrupt onset heart rate increasing from 68-102. This lasted about 15 minutes. Plan: patient off of inhaled beta agonists for 48 hours. She still having episodes of tachycardia. Her breathing is normal with no wheezing. I will change her ipratropium nebulizers to Incruse 62.5 at 1 puff q.day. I will DC her nebulized budesonide control her without inhaled corticosteroids. 11/29/24: Tells me she remains 95% back to her normal breathing status. She denies cough, phlegm, hemoptysis. She gets dyspnea on exertion when she walks. She said when she walked her heart rate got to 130. Her room air saturations are 97%. White blood cell count 8.9, creatinine 0.86. Weight 87.2. Patient is ready to be discharged home from a pulmonary perspective on these pulmonary medications Incruse Ellipta 62.5 at 1 puff q.day Rescue levalbuterol 2 puff q.4 hours p.r.n. shortness of breath or wheezing. Rescue levalbuterol 1.25 mcg q.4 hours nebulizer p.r.n. shortness of breath or wheezing Oxygen at rest and with activity per formal home O2 assessment which I have ordered. Oxygen at night at 3 L. Patient to follow-up in the Pulmonary Clinic in 4 weeks. I gave her business card and informed our property valuer. Patient should have outpatient PFTs and a split night sleep study. Discussed with Dr. Valverde, will sign off, call with questions. (2) Tachycardia: Code(s): R00.0 - Tachycardia, unspecified Status: Acute Assessment and Plan: At rest her heart rate was 95. Patient then walked to the bathroom on room air and her saturations remain 93 and her heart rate increased to 100. I then walked the patient in the hallway on room air. We walked for a total of about 2-1/2 minutes and I watched her counselor marriage and family continuously. After approximately 1 minute she said that she was starting to feel short of breath. Her heart rate was 110 and her saturations were 91. We continued to walk and then she said she was short of breath and she rated this at a scale of 6/10 and her heart rate was 110 and her saturations were 91. We walked for a total of 2- 1/2 minutes. She then sat in the bed and after 15 seconds her shortness of breath decreased from a 6/10 to 4/10 with a heart rate of 104 and a saturations 91. After another 15 seconds she decreased to 3/10 with a heart rate of 101 and a saturation of 92. After another 15 seconds she was a at a 1/10 with her shortness of breath and her heart rate was 99 with a saturation of 94. She had no audible wheezing during this activity. Plan: Current walking limited by dyspnea on exertion rather than tachycardia or anxiety. Currently patient with sinus tachycardia and no documented alternative arrhythmia. Will discontinue all beta agonists to see if this is contributing to tachyarrhythmias. Continue metoprolol 25 mg p.o. b.i.d. per medical laboratory assistant and hospitalist team. 11/27/24: During the overnight oximetry she had 2 episodes of abrupt onset tachycardia going from 68-103. I reviewed reviewed her telemetry monitoring with Cardiology and these episodes were an SVT consistent with atrial tachycardia. Plan: Cardiology has discontinue metoprolol and placed her on diltiazem 120 q.a.m.. Patient have a stress test tomorrow morning. 11/28/24: She tells me that she walked today and her heart rate went to 140. At 10:30 p.m. and at midnight she had 2 different 10-15 minute episodes of abrupt onset heart rate increasing from 68-102. plan: Patient on diltiazem. To have a stress test today per Cardiology. 11/29/24: Patient remains on diltiazem 120 q.a.m.. Management per Cardiology. (3) Anxiety: Code(s): F41.9 - Anxiety disorder, unspecified Status: Acute Assessment and Plan: Patient was started on BuSpar 10 mg q.12 hours during her hospitalization on 11/10/2024 and feels this is helping. Plan: Will discuss with hospitalist about a higher dose of BuSpar. 11/27/24: Patient was placed on BuSpar 10 mg q.8 hours yesterday. Will continue. (4) Suspected sleep apnea: Code(s): R29.818 - Other symptoms and signs involving the nervous system Status: Acute Assessment and Plan: Patient with daytime hypersomnia, snoring but no witnessed apneas, BMI 32.1. 11/27/24: Patient had an overnight oximetry on 2 L nasal cannula with recording duration of 7 hours and 19 minutes. Average saturation 97%. Low saturation 74%. Time with saturation less than or equal to 88% was 18 minutes, oxygen desaturation index 4.5. Plan: Patient will need an outpatient sleep study to assess for sleep-related breathing disorder. In the meantime I will try to provide adequate oxygenation. She had desaturations on 2 L nasal cannula and will repeat overnight oximetry on 3 L nasal cannula. 11/28/24: Patient had an overnight oximetry on 3 L nasal cannula recording duration of 8 hours and 10 minutes. Average saturation 99%. Low saturation 85%. Time with saturation less than or equal to 88% was 2 minutes, oxygen desaturation index 1.5. Plan: Patient should use 3 L nasal cannula at night while awaiting outpatient split night sleep study. 11/29/2024: Continue 3 L nasal cannula at night. Patient to have an outpatient split night sleep study. Subjective Date/time seen: 11/29/24 09:43 Interval history: 11/26/2024: This is a new pulmonary consult for COPD exacerbation. 64-year-old with a history of asthma and COPD, tobacco use, anxiety. Patient was seen by myself for COPD exacerbation during hospitalization from 11/10/2024 through 11/11/2024. I had no PFTs. CT scan of the chest 11/10/2024 with moderate apical predominant centrilobular emphysema. She was smoking half a pack a cigarettes a day. She was treated with BiPAP, steroids, bronchodilators and Levaquin. ABG on the day of discharge was 7.44/35/58 on room air. She was discharged on prednisone 40 x 3 days, Levaquin 750 x 5 days, Advair 115-21 at 2 puffs b.i.d., Incruse Ellipta 62.5 at 1 puff q.day albuterol rescue. For her anxiety she was started on BuSpar 10 p.o. b.i.d. Discharged on 2 L nasal cannula with rest, with activity and at night. No home O2 sessile was performed. Patient tells me she smoked 1 pack for day from age 16 to recently and currently is smoking half a pack. 48 pack years. She is exposed to no secondhand smoke. She has no occupational exposures. Collectively they tell me on a good day she can walk half a block. One year ago she could walk 3 block. She was prescribed home oxygen approximately 1 year ago but only uses it sporadically at night at 2 L NC. Maintained on Advair 115-21 at 2 puffs b.i.d. and Incruse Ellipta 62.5 for many years. 11/17/2024 through 11/20/2024: Patient admitted to the hospital with shortness of breath. Recently finished her antibiotics but was still short of breath with dyspnea on exertion and a heart rate to the 140s. she continued to have palpitations and sinus tachy with activity. She was treated for COPD exacerbation with steroids, possible pneumonia with ceftriaxone and doxycycline. Discharged on prednisone 40 mg a day for 5 days and levofloxacin 750 mg for 5 days. To continue her Advair 115-21 at 2 puffs b.i.d., Incruse Ellipta 62.5 at 1 puff q.day, rescue DuoNebs, rescue albuterol. 11/23/2024 through 11/24/2024: Admitted to [facility] with tachycardia and palpitations. Last night had a heart rate of 160-170. Worse with ambulation. Lungs were clear. Heart rate was 95. Room air saturations 94%. Patient was admitted. Cardiology consult obtained and patient's telemetry showed sinus tachycardia and her metoprolol was increased to 25 b.i.d.. Smoking cessation was provided. Discharged on Advair 115-21 2 puffs b.i.d., Incruse Ellipta 1 puff q.day, Levaquin for 5 days. Metoprolol 25 p.o. b.i.d.. To have a Holter monitor. TSH 3.70. BNP 2880. On 11/25/2024 the patient woke up and had no respiratory issues While sitting. She had a little short shortness of breath when walking. she complains of having episodes that occur sometimes at rest but usually with walking with shortness of breath, fast heart rate and anxiety. She has a hard time telling which comes 1st but says usually her heart rate goes up to 130 sometimes sitting and 145 walking and then she gets short of breath and then anxious. She does not notice active wheezing with these episodes. 11/25/2024: Patient presented to the emergency room with a complaint of fast heart rate, palpitations. Patient notes tachycardia, shortness of breath and anxiety. Patient had mild tachypnea with clear breath sounds. She was tachycardic at 1:33 a.m.. Room air saturations 93%. Blood pressure 116/70. Afebrile. White blood cell count 11.2, eosinophils 1.7%. Creatinine 1.20, Hemoglobin 16.2, hematocrit 50.2. Troponin negative. Chest x-ray no acute changes. She was anxious and tearful. She was given 2 L the LR. 11/26/24: The patient tells me she has had no cough, no fever, no chills, no rigors no hemoptysis. She has had her usual phlegm production of 1 time a day with she is clear. She has no change in her phlegm and no wheezing or changes in her respiratory status over the last 2 days. Her last use of rescue albuterol was on 11/24 and this helped her breathe. She takes rescue albuterol 1 to 2 times a week at baseline. All inhaled beta agonists were discontinued with a last Advair use at 10:49 a.m. Currently the patient is on room air with saturations 94%. She is afebrile. White blood cell count 9.8, creatinine 1.11. At rest her heart rate was 95. Patient then walked to the bathroom on room air and her saturations remain 93 and her heart rate increased to 100. I then walked the patient in the hallway on room air. We walked for a total of about 2-1/2 minutes and I watched her counselor marriage and family continuously. After approximately 1 minute she said that she was starting to feel short of breath. Her heart rate was 110 and her saturations were 91. We continued to walk and then she said she was short of breath and she rated this at a scale of 6/10 and her heart rate was 110 and her saturations were 91. We walked for a total of 2- 1/2 minutes. She then sat in the bed and after 15 seconds her shortness of breath decreased from a 6/10 to 4/10 with a heart rate of 104 and a saturations 91. After another 15 seconds she decreased to 3/10 with a heart rate of 101 and a saturation of 92. After another 15 seconds she was a at a 1/10 with her shortness of breath and her heart rate was 99 with a saturation of 94. She had no audible wheezing during this activity. At home she is telling me that when she walks across the room sometimes her heart rate will get to 145. Later in the day patient had a CT angiogram of the chest which showed no PE, right upper lobe nodule versus scarring with no change compared to 11/10/2024. No evidence of interstitial lung disease, pulmonary edema or pleural effusions. 11/27/2024: Overall patient tells me she slept well. She states she is breathing 95 back % back to her normal. Her cough is normal. No phlegm or hemoptysis. She is afebrile. White blood cell count 8.2, creatinine 0.9., TSH 2.69, free T4 1.55. Currently the patient is on room air with saturations 96%. Patient had an overnight oximetry on 2 L nasal cannula with recording duration of 7 hours and 19 minutes. Average saturation 97%. Low saturation 74%. Time with saturation less than or equal to 88% was 18 minutes, oxygen d esaturation index 4.5. During the overnight oximetry she had 2 episodes of abrupt onset tachycardia going from 68-103. I reviewed reviewed her telemetry monitoring with Cardiology and these episodes were an SVT consistent with atrial tachycardia. 11/28/24: Today she tells me her breathing is improved. She tells me she is 95 % back to her normal. She has no cough, phlegm or hemoptysis. She has no rest shortness of breath. She has dyspnea on exertion when she walks. She walked today and her heart rate went to 140. Room air saturations are 95%. White blood cell count 7.8. Patient had an overnight oximetry on 3 L nasal cannula recording duration of 8 hours and 10 minutes. Average saturation 99%. Low saturation 85%. Time with saturation less than or equal to 88% was 2 minutes, oxygen desaturation index 1.5. At 10:30 a.m. and at midnight she had 210 minute episodes of abrupt onset heart rate increasing from 68-102. This lasted about 15 minutes. 11/29/24: Tells me she remains 95% back to her normal breathing status. She denies cough, phlegm, hemoptysis. She gets dyspnea on exertion when she walks. She said when she walked her heart rate got to 130. Her room air saturations are 97%. White blood cell count 8.9, creatinine 0.86. Weight 87.2. DATA 11/26/24: CTA chest PE protocol Ordering provider: Osman Valverde MD History: 64 years Female with . shortness of breath . Comparison: None. Technique: CT angiogram chest was performed following timed intravenous injection of contrast. Thin slice axial images and reformatted coronal images were obtained. Three dimensional reformatted images of the chest were also obtained using a [employer] workstation. . Automated exposure control and iterative reconstruction technique were employed. The dose-length product was 822.01 mGy- cm. 100 mL Omnipaque 350 was given IV. Findings: PULMONARY ARTERIES: No pulmonary embolus. VISUALIZED THORACIC INLET: Normal. MEDIASTINUM: Aorta/coronary arteries: Mild atheromatous disease. Heart/other: The heart is not enlarged. Lymph nodes: No mediastinal or hilar adenopathy. LUNGS: Possible nodule or focal atelectasis seen anteriorly in the right upper lobe which measures 1.1 x 1.2 x 1.4 cm. No pulmonary masses. No infiltrates or effusions. No pneumothorax. VISUALIZED UPPER ABDOMEN: Right renal cyst. lobated kidneys is noted. Otherwise, the visualized upper abdomen is normal. MUSCULOSKELETAL: Soft tissues: The superficial soft tissues are normal. Bones: Fracture is seen in T6. Age appropriate degenerative changes of the spine. IMPRESSION: 1. No pulmonary embolism. 2. No acute cardiopulmonary pathology. 3. Focal area of atelectasis versus pneumonia versus nodule seen anteriorly in the right upper lobe measuring 1.1 x 1.2x1.4 cm. 4. Compression fracture in the T6 vertebra. 11/23/24: Echo Summary 1. Technically difficult study with poorly visualized views. 2. Overall preserved biventricular systolic function. Left Ventricle The left ventricle is normal in size and systolic function. The left ventricular ejection fraction is visually estimated to be 60-65%. Right Ventricle The right ventricle is normal in size and systolic function. Left Atria The left atrium is normal size. Right Atria The right atrium is normal size. no RVSP Calculated 11/10/24; CT diagnostic chest wo con Ordering provider: Parish Ragsdale MD History: 64 years Female with . COPD . Comparison: None. Technique: CT chest without IV contrast. Radiation reduction technique utilized.The dose-length product was 365.56 mGy- cm. FINDINGS: VISUALIZED THORACIC INLET: Normal. Retropharyngeal carotid arteries. MEDIASTINUM: Aorta/coronary arteries: Mild atheromatous disease. Heart/other: The heart is not enlarged. Lymph nodes: No mediastinal or hilar adenopathy. LUNGS: Underlying emphysematous changes. No pulmonary nodules or masses. No infiltrates or effusions. No pneumothorax. Atelectasis versus focal pneumonia is seen in the right upper lobe. VISUALIZED UPPER ABDOMEN: Right kidney small cyst measuring 1.8 cm. Status post cholecystectomy. Otherwise, the visualized upper abdomen is normal. MUSCULOSKELETAL: Soft tissues: The superficial soft tissues are normal. Bones: Age appropriate degenerative changes of the spine. Burst fracture is seen in T6 which may be acute or chronic. MRI evaluation advised. IMPRESSION: 1. Focal area of atelectasis versus pneumonia in the right upper lobe anteriorly. Otherwise, No evidence of pneumonia or pneumothorax. 2. Underlying emphysematous changes. 3. Burst fracture of T6. MRI is advised. Review of Systems Constitutional: Constitutional: Reports no additional constitutional complaints Eyes: Eyes: Reports no additional eye complaints ENT: Reports system reviewed and no additional complaints, except as documented Cardiovascular: Cardiovascular: Reports no additional cardiovascular complaints Respiratory: Respiratory: Reports no additional respiratory complaints Gastrointestinal: Gastrointestinal: Reports no additional gastrointestinal complaints Musculoskeletal: Musculoskeletal: Reports no additional musculoskeletal complaints Neurologic: Reports system reviewed and no additional complaints, except as documented Psychiatric: Psychiatric: Reports no additional psychiatric complaints Endocrine: Endocrine: Reports no additional endocrine complaints Hematologic/Lymphatic: Hematologic/Lymphatic: Reports no additional hematologic/lymphatic complaints Allergic/Immunologic: Allergic/Immunologic: Reports no additional allergic/immunologic complaints Exam Const: General: cooperative, healthy appearing and comfortable Orientation/consciousness: oriented to person, oriented to place and oriented to time HENMT: Head: normal to inspection Ears: hearing grossly normal bilaterally Eyes: General: appearance normal, both eyes and all related structures Neck: Neck: normal visual inspection Chest: Chest palpation & inspection: normal inspection of the chest Resp: Effort & Inspection: normal respiratory effort and able to speak in complete sentences Auscultation: no crackles, no rales, no rhonchi, no wheezes and lung sounds not diminished Other: no wheezing. Cardio: Jugular venous distension: no JVD GI: Inspection: normal to inspection Skin: General skin exam: normal color Neuro: General: oriented to person, oriented to place and oriented to time Extrem: General: normal to inspection Psych: Appearance: grossly normal Objective Data Vital Signs Vital Signs: Vital Signs - 24 hr 11/28/24 12:00 11/28/24 13:31 11/28/24 13:37 Temperature 36.4 C L Pulse Rate 95 99 Respiratory Rate 118 H Blood Pressure 135/68 135/68 Pulse Oximetry 97 Oxygen Delivery Fraction of Inspired Oxygen 11/28/24 13:44 11/28/24 13:44 11/28/24 16:00 Temperature Pulse Rate 86 109 H Respiratory Rate 20 Blood Pressure Pulse Oximetry 91 Oxygen Delivery Room Air Fraction of Inspired Oxygen 21 11/28/24 19:41 11/28/24 20:00 11/28/24 20:00 Temperature 36.4 C Pulse Rate 97 85 Respiratory Rate 20 Blood Pressure 116/60 Pulse Oximetry 96 Oxygen Delivery Room Air Fraction of Inspired Oxygen 11/28/24 23:30 11/29/24 00:00 11/29/24 04:00 Temperature Pulse Rate 79 71 Respiratory Rate Blood Pressure Pulse Oximetry 95 Oxygen Delivery Autopap Fraction of Inspired Oxygen 11/29/24 05:15 11/29/24 08:00 11/29/24 08:00 Temperature 36.5 C Pulse Rate 81 86 Respiratory Rate 20 Blood Pressure 110/48 L Pulse Oximetry 94 94 Oxygen Delivery Room Air Fraction of Inspired Oxygen 11/29/24 09:28 Temperature Pulse Rate Respiratory Rate Blood Pressure Pulse Oximetry 97 Oxygen Delivery Room Air Fraction of Inspired Oxygen Intake/Output Intake/Output: Intake & Output 11/26/24 11/27/24 11/28/24 11/29/24 23:59 23:59 23:59 23:59 Intake Total 1969 1720 550 650 Balance 1970 1720 550 650 Meds/Results Medications: Active Medications Generic Name Dose Route Start Last Admin Trade Name Freq PRN Reason Stop Dose Admin Aspirin 81 mg 11/26/24 08:00 11/29/24 07:50 Aspirin 81 Mg Chewable Tablet PO 81 mg DAILY@0800 MEILY Administration Buspirone HCl 10 mg 11/26/24 22:00 11/29/24 05:16 Buspirone Hcl 10 Mg Tablet PO 10 mg Q8HR EMILY Administration Diltiazem HCl 120 mg 11/27/24 10:20 11/29/24 07:50 Diltiazem Hcl Cd 120 Mg Cap.24hr PO 120 mg QAM EMILY Administration Enoxaparin Sodium 40 mg 11/27/24 09:00 11/29/24 07:51 Enoxaparin 40 Mg/0.4 Ml Syringe SUB-Q 40 mg DAILY EMILY Administration Nicotine 1 patch 11/26/24 09:00 11/29/24 07:50 Nicotine (*Pbkc) 21 Mg Patch TRANSDERM 1 patch DAILY EMILY Administration Nitroglycerin 0.4 mg 11/26/24 09:52 Nitroglycerin Sl 0.4 Mg Tablet SUBLINGUAL Q5MIN PRN Chest Pain Perflutren Lipid Microsphere 0 ml 11/26/24 11:25 Perflutren Lipid Microspheres 1.5 Ml Vial Diluted To 10 Ml Total Volume IV PUSH 11/29/24 11:25 ONCE PRN adequate visualization Protocol Rosuvastatin Calcium 20 mg 11/26/24 18:00 11/28/24 16:45 Rosuvastatin 20 Mg Tablet PO 20 mg EVENING EMILY Administration Umeclidinium [place] 1 puff 11/28/24 10:50 11/29/24 09:27 Umeclidinium [place] 62.5 Mcg Ellipta INHALATION 1 puff DAILYRT EMILY Administration Radiology Results: ITS Impressions Chest X-Ray 11/25/24 23:01 IMPRESSION: No acute cardiopulmonary pathology. Chest CTA 11/26/24 18:42 IMPRESSION: 1. No pulmonary embolism. 2. No acute cardiopulmonary pathology. 3. Focal area of atelectasis versus pneumonia versus nodule seen anteriorly in the right upper lobe measuring 1.1 x 1.2x1.4 cm. 4. Compression fracture in the T6 vertebra. Lexiscan Stress Test 11/28/24 13:25 IMPRESSION: 1. Normal myocardial perfusion at rest and during stress. 2. Left ventricular ejection fraction measuring >70%. Venous Doppler Study 11/28/24 19:09 IMPRESSION: Patent bilateral lower extremity veins. No evidence of deep venous thrombosis. Labs Labs: Laboratory Results - last 24 hr 11/29/24 04:32 WBC 8.9 RBC 4.20 Hgb 13.4 Hct 42.1 MCV 100.2 H MCH 31.9 MCHC 31.8 L RDW 13.8 Plt Count 190 MPV 10.6 H Immature Gran % (Auto) 0.7 H Neut % (Auto) 71.8 Lymph % (Auto) 20.4 [place] % (Auto) 5.4 Eos % (Auto) 1.5 Baso % (Auto) 0.2 Lymph # (Auto) 1.82 [place] # (Auto) 0.5 Eos # (Auto) 0.1 Baso # (Auto) 0.0 Abs Immat Gran (auto) 0.06 H Absolute Neuts (auto) 6.4 Absolute Nucleated RBC 0.000 Nucleated RBC % 0.0 Sodium 136 L Potassium 3.6 Chloride 104 Carbon Dioxide 25 Anion Gap 7 BUN 10 Creatinine 0.86 Estim Creat Clear Calc 63 Estimated GFR > 60 Glucose 101 Calcium 8.6 Magnesium 2.1 Total Bilirubin 0.6 AST 31 ALT 42 H Alkaline Phosphatase 38 Total Protein 6.0 L Albumin 3.6
--- NOTE | 2024-11-29 13:57 | HOMEO2EVAL ---
Evaluation was performed at [facility] Home Oxygen Evaluation RC: Home Oxygen (O2) Evaluation Start: 11/29/24 09:28 Freq: ONCE Status: Active Protocol: RPE Activity Type Activity Date Activity User E-sign Co-sign Detail Recorded Client Recorded Date Recorded By Document 11/29/24 13:00 CORRINE [id number] 11/29/24 13:57 CORRINE Document 11/29/24 13:05 CORRINE [id number] 11/29/24 13:57 CORRINE Document 11/29/24 13:15 CORRINE [id number] 11/29/24 13:57 CORRINE 11/29/24 11/29/24 11/29/24 13:00 13:05 13:15 Home O2 Evaluation [Oxygen] -Test Phase Resting Exercise Resting -Oxygen Delivery Room Air Room Air Room Air [Pulse Oximetry] -Pulse Oximetry (90-100 %) 96 93 95 [Pulse Rate] -Pulse Rate (60-100 beats/min) 91 131 H 95 [Evaluation] -Activity Tolerance Excellent -Rating of Perceived Dyspnea (PD) +3 Moderate Difficulty, But Can Continue [Exercise] -Ambulation Distance (feet) 450 -Ambulation Distance (meters) 137.15 [Comments] -Home Oxygen Evaluation Comments Room air at rest and with activity, wears 3 liters nocturnal only [Charges] -Evaluation Charges O2 Evaluation by Pulmonary
--- NOTE | 2024-11-29 13:58 | PCRCNOTE ---
Home O2 not needed with rest or exertion, will need 3 liters home o2 nocturnal only. Pt already has home o2 with [facility], has all O2 equipment. Charge nurse aware.
--- NOTE | 2024-11-29 14:52 | P.DS_ITS ---
DS: Admitting Diagnosis Discharge Date 11/29/2024 Admitting Diagnosis Shortness of breath DS: Discharge Diagnosis Discharge Diagnosis (1) Anxiety: Code(s): F41.9 - Anxiety disorder, unspecified Status: Acute (2) Coronary artery disease: Onset Date: 10/2023 Code(s): I25.10 - Atherosclerotic heart disease of [place] coronary artery without angina pectoris Status: Acute (3) Tachycardia: Code(s): R00.0 - Tachycardia, unspecified Status: Acute (4) Palpitations: Code(s): R00.2 - Palpitations Status: Acute (5) Chronic obstructive pulmonary disease: Code(s): J44.9 - Chronic obstructive pulmonary disease, unspecified Status: Acute DS: Summary Hospital Course Hospital Course: 64-year-old female with history of coronary disease, COPD, anxiety, grade 1 diastolic dysfunction and recent hospitalizations multiple times since the beginning of this month. Patient presents to the emergency room with complaints of palpitations and elevated heart rate within the heart rates in the 160s and 170s with activity. She endorses shortness of breath when this happens. She has been evaluated and admitted to the hospital multiple times this month for similar and discharged home with a Holter monitor which she did 2 days ago. She turned in the Holter monitor yesterday after 24 observation and came to the ER as she was having palpitations and noted that her heart rate was in the 170s. She endorses pain in her chest when this happens and severe anxiety. She has been evaluated multiple times by Cardiology with recommendations for upping her metoprolol and will follow up with her on outpatient basis but this did not happen yet as she returned to the emergency department almost immediately. In the ER patient was tachycardic in 130s otherwise vitals were stable. Laboratory studies revealed WBC of 11.2 hematocrit 50 16 platelet 272 Chem panel with normal electrolytes creatinine 1.2 blood sugar was 121. Renal function slightly elevated from her baseline. Troponin was negative. LFTs were normal. She received 2 L of LR in the ER. BNP was elevated at 2880 recent admission EKG with sinus tachycardia. Chest x-ray with no acute cardiopulmonary abnormality. She is admitted in the setting for further observation. She reports that she gets tachycardic whenever she exerts. Nonobstructive coronary artery disease by catheterization January of 2024 COPD on home oxygen 2 L at baseline. Possible COPD exacerbation. Mild wheezing. CTA PE protocol came back negative for PE. Does status so right upper lobe atelectasis versus pneumonia versus nodule which looks similar. Needs to be followed up as an outpatient basis. Recent echocardiogram normal EF. Valves were not well visualized. Holter monitor was recently done which is yet to be reviewed. Continue to monitor on telemetry. During telemetry monitoring she had episodes of SVT noted during this hospitalization. Cardiology was consulted with regard to this. Episodes of SVT: Cardiology board. Stress test normal. Metoprolol has been switched to diltiazem for treatment of SVT. Up titrate to 180 mg at discharge follow-up with cardiology as an outpatient basis. Tobacco abuse Grade 1 diastolic dysfunction echo 11/23/2024 with EF 60-65% valves were not well visualized Anxiety disorder on buspirone Possible sleep apnea apnea link with AHI 32.1 need sleep study as an outpatient basis DVT prophylaxis Lovenox Code status full code Time Spent with Patient Time attestation: Total time spent providing and/or coordinating discharge services: 45 minutes Exam Narrative: GENERAL: Morbidly obese, not in acute distress HEAD: [Normocephalic, atraumatic.] EYES: [PERRLA and EOMI.] ENT: Nares clear, no rhinorrhea or epistaxis. Mucous membranes moist. NECK: Supple. CHEST: Clear to auscultation bilaterally, No respiratory distress no wheezes HEART: Regular rate with regular rhythm. No murmur heard. [Normal peripheral pulses.] ABDOMEN: [Soft, nondistended], [nontender], [No rigidity or guarding] EXTREMITIES: Normal range of motion. [No edema.] SKIN: Warm, dry, no rash. NEURO: [No focal deficits]. Alert and oriented [x3.] PSYCH: [Normal mood and affect.] DS: Data Data Completed and Pending Labs on day of discharge: Labs from last 24 hours 11/29/24 04:32 WBC 8.9 RBC 4.20 Hgb 13.4 Hct 42.1 MCV 100.2 H MCH 31.9 MCHC 31.8 L RDW 13.8 Plt Count 190 MPV 10.6 H Immature Gran % (Auto) 0.7 H Neut % (Auto) 71.8 Lymph % (Auto) 20.4 [place] % (Auto) 5.4 Eos % (Auto) 1.5 Baso % (Auto) 0.2 Lymph # (Auto) 1.82 [place] # (Auto) 0.5 Eos # (Auto) 0.1 Baso # (Auto) 0.0 Abs Immat Gran (auto) 0.06 H Absolute Neuts (auto) 6.4 Absolute Nucleated RBC 0.000 Nucleated RBC % 0.0 Sodium 136 L Potassium 3.6 Chloride 104 Carbon Dioxide 25 Anion Gap 7 BUN 10 Creatinine 0.86 Estim Creat Clear Calc 63 Estimated GFR > 60 Glucose 101 Calcium 8.6 Magnesium 2.1 Total Bilirubin 0.6 AST 31 ALT 42 H Alkaline Phosphatase 38 Total Protein 6.0 L Albumin 3.6 Imaging Radiologist's impression: ITS Impressions Chest X-Ray 11/25/24 23:01 IMPRESSION: No acute cardiopulmonary pathology. Chest CTA 11/26/24 18:42 IMPRESSION: 1. No pulmonary embolism. 2. No acute cardiopulmonary pathology. 3. Focal area of atelectasis versus pneumonia versus nodule seen anteriorly in the right upper lobe measuring 1.1 x 1.2x1.4 cm. 4. Compression fracture in the T6 vertebra. Lexiscan Stress Test 11/28/24 13:25 IMPRESSION: 1. Normal myocardial perfusion at rest and during stress. 2. Left ventricular ejection fraction measuring >70%. Venous Doppler Study 11/28/24 19:09 IMPRESSION: Patent bilateral lower extremity veins. No evidence of deep venous thrombosis. Discharge Plan Discharge Attending physician on discharge: Osman Valverde Consulting providers: Parish Ragsdale; Cooper Mathias Discharging Clinician: Osman Valverde Anticipated Discharge Date/Time: 11/29/24 14:53 Patient Disposition: Home Activity: as tolerated Diet: heart healthy Discharge Instructions: Oxygen 3 L at night Will need sleep study as outpatient basis. Patient Instructions: Antibiotic Form Patient Language: [place] Stand Alone Forms: General Discharge Information Follow-up/Referrals: José MiguelParish MD [Primary Care Provider] - 1 Week Cooper Mathais MD [Physician] - 2 Weeks Parish Ragsdale MD [Physician] - 4 Weeks Discharge Medications: New levalbuterol HCl 1.25 mg/3 mL solution for nebulization 1.25 mg inhalation Q4H PRN (Reason: shortness of breath or wheezing) Qty: 72 0RF levalbuterol tartrate [Xopenex HFA] 45 mcg/actuation HFA aerosol inhaler 2 inh inhalation Q4H PRN (Reason: shortness of breath or wheezing) Qty: 15 0RF Continued Incruse Ellipta 62.5 mcg/actuation blister with device 1 inh INHALATION DAILY nitroglycerin [Nitrostat] 0.4 mg Tablet, Sublingual 0.4 mg sublingual Q5MIN PRN (Reason: Chest Pain) Qty: 10 0RF Patient Comments: has not had to admin nicotine [Nicoderm CQ] 21 mg/24 hr Patch 24 Hour 1 patch transdermal DAILY Qty: 14 0RF aspirin [Children's Aspirin] 81 mg Tablet,Chewable 81 mg PO DAILY@0800 Qty: 30 0RF rosuvastatin 20 mg Tablet 20 mg PO EVENING Qty: 30 0RF Changed buspirone 10 mg Tablet 10 mg PO Q8H Qty: 90 0RF Discontinued albuterol sulfate 90 mcg/actuation HFA aerosol inhaler 2 puff INHALATION TID PRN (Reason: Shortness Of Breath Or Wheezing) fluticasone propion-salmeterol [Advair HFA] 115-21 mcg/actuation HFA aerosol inhaler 2 puff INHALATION BID metoprolol succinate [Toprol XL] 25 mg Tablet Extended Release 24 Hr 25 mg PO BID Qty: 30 0RF ipratropium-albuterol 0.5 mg-3 mg(2.5 mg base)/3 mL Solution For Nebulization 3 ml inhalation Q6HRT PRN (Reason: shortness of breath) Date of admission: 11/28/24 14:43 Primary Care Provider: Emma*Parish Admitting Provider: Disha Garces Attending physician on admission: Disha Garces Condition: Stable
[2024-11-29] MEDS: dilTIAZem HCL 12 HR 60 MG CAP.12HR PO (15:12)
== END 2024-11-29 16:18 | disposition home or self-care (01) | DRG 310 ==
LOC: ANHED 11-26 06:59 → ANH2MED 11-26 07:27
PROVIDERS: Internal Medicine Pulmonary Disease; Admitting Provider Internal Medicine; Emergency Provider Student in an Organized Health Care Education/Training Program; PCP Internal Medicine; Visit Provider Internal Medicine
DX: I47.19 Other supraventricular tachycardia (principal); I25.10 Atherosclerotic heart disease of native coronary artery without angina pectoris; E86.0 Dehydration; J44.9 Chronic obstructive pulmonary disease, unspecified; F17.210 Nicotine dependence, cigarettes, uncomplicated; F41.9 Anxiety disorder, unspecified; Z79.82 Long term (current) use of aspirin
CPT/HCPCS: 36415; 71046; 71275; 78452; 80053; 83735; 83880; 84439; 84443; 84484; 85025; 93005; 93017; 93970; 94618; 94640; 94762; 96361; 96372; 99285; A9270; A9502; G0378; J1650; J2785; J7120; Q9967

== ENCOUNTER 2024-12-06 11:25 | Observation (INO) | payer OTHER, SELFPAY ==
[2024-12-06] VITALS (11 sets, daily range): BP systolic 125–152; BP diastolic 68–79; PULSE 102–123; RESP 18–24; TEMP 36.1–36.4; O2SAT 91–95; BMI 31.5
--- NOTE | ~2024-12-06 | XR_ITS ---
CHEST RADIOGRAPH, PA AND LATERAL CLINICAL HISTORY: sob/chest pressure . COMPARISON: 11/25/2024 TECHNIQUE: PA and lateral views of the chest. FINDINGS The cardiomediastinal silhouette is unremarkable. The lungs are clear. IMPRESSION: No focal infiltrate or effusion. If clinical suspicion persists, cross-sectional imaging (noncontrast enhanced CT examination of the c hest) is suggested for further evaluation. Reviewed, dictated and finalized at location A. IMPRESSION: No focal infiltrate or effusion. If clinical suspicion persists, cross-sectional imaging (noncontrast enhanced C T examination of the chest) is suggested for further evaluation.
--- NOTE | 2024-12-06 11:28 | ECG_ITS ---
Test Date: 2024-12-06 11:38:47 Measurements Intervals [place] Rate: 112 P: 60 SC: 129 QRS: 64 QRSD: 71 T: 76 QT: 298 QTc: 407 Interpretive Statements SINUS TACHYCARDIA ABNORMAL RHYTHM ECG Compared to ECG 11/25/2024 22:05:38 HEART RATE HAS DECREASED Electronically Signed On 12-06-2024 14:26:21 CDT by Moris Garrison M.D.
--- OUTSIDE RECORDS SUMMARY | 2024-12-06 11:30 | XMS_ITS | Data Portability ---
Author Organization [facility]ENTER[facility]elardo Cecille Zamarripa Address [address] [facility] [place] [address] Care Team Providers Care Ship Mate Name Role Phone SATINDER VALDEZ Primary Care Provider [phone] Assessment Encounter Date Assessment Date Assessment LastModified [...] me in 3 months cardiology note reviewed. [email or web address] Not available 01/07/2024 22:12:53 02/24/2024 02/24/2024 smoking [...] start it. Also get pulmonary function tests [email or web address] Not available 02/24/2024 21:43:50 04/29/2024 04/29/2024 she [...] COPD flare she would notify the office [email or web address] Not available 04/29/2024 14:50:20 2024 2024 PFTs. Refuses to get evaluation by gynecology for well-woman refuses any colon cancer screening refuses any immunizations. Blood work has been ordered follow up 3 months. Low-fat diet do not smoke stay active [email or web address] Not available 2024 16:21:48 Plan of Treatment Reminders Order Date Submit Date Provider Last Modified By Organization Details Last Modified Time Details Appointments ANY 2024 02:30P Russell Valdez MD Not available Not available Not available ANY 2024 01:00P Russell Valdez MD Not available Not available Not available Lab CBC w/ auto diff 2024 025 [facility], [address] [place] [address], [facility] [address], [place], [address], 10/01/2024 08:24:19 CMP, serum or plasma 2024 025 [facility], [address] [place] [address], [facility] [address], [place], [address], 10/01/2024 08:24:18 lipid panel, serum 2024 025 [facility], [address] [place] [address], [facility] [address], [place], [address], 10/01/2024 08:24:17 Referral None recorde d. Procedures None recorde d. Surgeries None recorde d. Imaging None recorde d. Medication Orders prednis one 20 mg tablet 2023 024 [id number], [address], [place], [place], [id number], 2024 12:19:47 atorvas tatin 40 mg tablet 2023 024 [email or web address] [facility] #[id number], [address], [place], [place], [id number], 04/29/2024 14:22:21 prednis one 20 mg tablet 2023 024 [facility] #[id number], [address], [place], [place], [id number], 2024 12:19:47 albuter ol sulfate HFA 90 mcg/act uation aerosol inhaler 2022 023 [facility], [address], [place], [place], [id number], 05/29/2023 15:36:23 Medrol ([place]) 4 mg tablets in a dose pack 2022 024 [facility] #35337, [address], [place], [place], [id number], 2024 12:19:34 Patient TargetsNo targets recorded. Patient Instructions Encounter Date Encounter Id Patient Instructions Last Modified By Organization Details Last Modified Time 05/29/2023 [id number] When You Want to Lose Weight: Care Instructions [facility] Not available 05/29/2023 15:36:05 Quitting Tobacco: Care Instructions [facility] Not available 05/29/2023 15:36:05 high cholesterol: care instructions [facility] Not available 05/29/2023 15:36:05 chronic obstructive pulmonary disease (COPD): care instructions [facility] Not available 05/29/2023 15:36:04 learning about copd and how to prevent lung infections [facility] Not available 05/29/2023 15:36:04 01/07/2024 [id number] Patient Health Questionnaire-9* [email or web address] Not available 01/08/2024 10:42:52 02/24/2024 [id number] Quitting Tobacco: Care Instructions [email or web address] Not available 02/24/2024 21:44:48 sending diane to [facility] for ER note and [facility] for PFT [email or web address] Not available 02/24/2024 17:10:26 Reason for Referral None Reported. Results Created Date Observation Date Name Description Value Unit Range Abnormal Flag Note LastModifiedBy Organization Detail LastModifiedTime 10/01/19 25 10/01/2024 LIPID PANEL cholesterol, total 233 mg/dL 100-19 9 above high normal Not Available [facility] ([facility]) [address] [place], [address], 10/01/2024 08:24:17 10/01/19 25 10/01/2024 LIPID PANEL triglyceride s 200 mg/dL 0-149 above high normal Not Available [facility] ([facility]) [address] [place], [address], 10/01/2024 08:24:17 10/01/19 25 10/01/2024 LIPID PANEL HDL cholesterol 75 mg/dL >39 Not Available [facility] ([facility]) [address] [place], [address], 10/01/2024 08:24:17 10/01/19 25 10/01/2024 LIPID PANEL VLDL cholesterol mahogany 35 mg/dL 5-40 Not Available [facility] ([facility]) [address] [place], [address], 10/01/2024 08:24:17 10/01/19 25 10/01/2024 LIPID PANEL LDL chol calc ([facility]) 123 mg/dL 0-99 above high normal Not Available [facility] ([facility]) [address] [place], [address], 10/01/2024 08:24:17 10/01/19 25 10/01/2024 COMP. METAB OLIC PANEL (14) glucose 84 mg/dL 70-99 Not Available [facility] ([facility]) [address] [place], [address], 10/01/2024 08:24:18 10/01/19 25 10/01/2024 COMP. METAB OLIC PANEL (14) BUN 12 mg/dL 8-27 Not Available [facility] ([facility]) [address] [place], [address], 10/01/2024 08:24:18 10/01/19 25 10/01/2024 COMP. METAB OLIC PANEL (14) creatinine 1.03 mg/dL 0.57-1 .00 above high normal Not Available [facility] ([facility]) [address] [facility], [place], [address], 10/01/2024 08:24:18 10/01/19 25 10/01/2024 COMP. METAB OLIC PANEL (14) eGFR 61 mL/mi n/1.7 3 >59 Not Available [facility] ([facility]) [address] [facility] [place], [address], 10/01/2024 08:24:18 10/01/19 25 10/01/2024 COMP. METAB OLIC PANEL (14) BUN/creatini ne ratio 12 12-28 Not Available [facility] ([facility]) [address] [facility], [place], [address], 10/01/2024 08:24:18 10/01/19 25 10/01/2024 COMP. METAB OLIC PANEL (14) sodium 141 mmol/ L 134-14 4 Not Available [facility] ([facility]) [address] [facility], [place], [address], 10/01/2024 08:24:18 10/01/19 25 10/01/2024 COMP. METAB OLIC PANEL (14) potassium 4.7 mmol/ L 3.5-5. 2 Not Available [facility] ([facility]) [address] [facility], [place], [address], 10/01/2024 08:24:18 10/01/19 25 10/01/2024 COMP. METAB OLIC PANEL (14) chloride 101 mmol/ L 96-106 Not Available [facility] ([facility]) [address] [facility], [place], [address], 10/01/2024 08:24:18 10/01/19 25 10/01/2024 COMP. METAB OLIC PANEL (14) carbon dioxide, total 22 mmol/ L 20-29 Not Available [facility] ([facility]) [address] [facility], [place], [address], 10/01/2024 08:24:18 10/01/19 25 10/01/2024 COMP. METAB OLIC PANEL (14) calcium 9.6 mg/dL 8.7-10 .3 Not Available [facility] ([facility]) [address] [facility], [place], [address], 10/01/2024 08:24:18 10/01/19 25 10/01/2024 COMP. METAB OLIC PANEL (14) protein, total 6.4 g/dL 6.0-8. 5 Not Available [facility] ([facility]) [address] [place], [address], 10/01/2024 08:24:18 10/01/19 25 10/01/2024 COMP. METAB OLIC PANEL (14) albumin 4.3 g/dL 3.9-4. 9 Not Available [facility] ([facility]) [address] [place], [address], 10/01/2024 08:24:18 10/01/19 25 10/01/2024 COMP. METAB OLIC PANEL (14) globulin, total 2.1 g/dL 1.5-4. 5 Not Available [facility] ([facility]) [address] [place], [address], 10/01/2024 08:24:18 10/01/19 25 10/01/2024 COMP. METAB OLIC PANEL (14) bilirubin, total 0.4 mg/dL 0.0-1. 2 Not Available [facility] ([facility]) [address] [place], [address], 10/01/2024 08:24:18 10/01/19 25 10/01/2024 COMP. METAB OLIC PANEL (14) alkaline phosphatase 90 IU/L 44-121 Not Available [facility] ([facility]) [address] [place], [address], 10/01/2024 08:24:18 10/01/19 25 10/01/2024 COMP. METAB OLIC PANEL (14) AST (SGOT) 17 IU/L 0-40 Not Available [facility] ([facility]) [address] [place], [address], 10/01/2024 08:24:18 10/01/19 25 10/01/2024 COMP. METAB OLIC PANEL (14) ALT (SGPT) 20 IU/L 0-32 Not Available [facility] ([facility]) [address] [facility], [place], [address], 10/01/2024 08:24:18 10/01/19 25 10/01/2024 CBC WITH DIFFE RENTI AL/PL ATELE T WBC 9.3 x10e3 /uL 3.4-10 .8 Not Available [facility] ([facility]) [address] [place], [address], 10/01/2024 08:24:19 10/01/19 25 10/01/2024 CBC WITH DIFFE RENTI AL/PL ATELE T RBC 5.33 x10e6 /uL 3.77-5 .28 above high normal Not Available [facility] ([facility]) [address] [facility], [place], [address], 10/01/2024 08:24:19 10/01/19 25 10/01/2024 CBC WITH DIFFE RENTI AL/PL ATELE T hemoglobin 17.6 g/dL 11.1-1 5.9 above high normal Not Available [facility] ([facility]) [address] [place], [address], 10/01/2024 08:24:19 10/01/19 25 10/01/2024 CBC WITH DIFFE RENTI AL/PL ATELE T hematocrit 53.6 % 34.0-4 6.6 above high normal Not Available [facility] ([facility]) [address] [place], [address], 10/01/2024 08:24:19 10/01/19 25 10/01/2024 CBC WITH DIFFE RENTI AL/PL ATELE T MCV 101 fL 79-97 above high normal Not Available [facility] ([facility]) [address] [place], [address], 10/01/2024 08:24:19 10/01/19 25 10/01/2024 CBC WITH DIFFE RENTI AL/PL ATELE T MCH 33.0 pg 26.6-3 3.0 Not Available [facility] ([facility]) [address] [place], [address], 10/01/2024 08:24:19 10/01/19 25 10/01/2024 CBC WITH DIFFE RENTI AL/PL ATELE T MCHC 32.8 g/dL 31.5-3 5.7 Not Available [facility] ([facility]) [address] [place], [address], 10/01/2024 08:24:19 10/01/19 25 10/01/2024 CBC WITH DIFFE RENTI AL/PL ATELE T RDW 13.8 % 11.7-1 5.4 Not Available [facility] ([facility]) [address] [place], [address], 10/01/2024 08:24:19 10/01/19 25 10/01/2024 CBC WITH DIFFE RENTI AL/PL ATELE T platelets 263 x10e3 /uL 150-45 0 Not Available [facility] ([facility]) [address] [place], [address], 10/01/2024 08:24:19 10/01/19 25 10/01/2024 CBC WITH DIFFE RENTI AL/PL ATELE T neutrophils 59 % notest ab. Not Available [facility] ([facility]) [address] [facility], [place], [address], 10/01/2024 08:24:19 10/01/19 25 10/01/2024 CBC WITH DIFFE RENTI AL/PL ATELE T lymphs 29 % notest ab. Not Available [facility] ([facility]) [address] [facility], [place], [address], 10/01/2024 08:24:19 10/01/19 25 10/01/2024 CBC WITH DIFFE RENTI AL/PL ATELE T monocytes 8 % notest ab. Not Available [facility] ([facility]) [address] [facility], [place], [address], 10/01/2024 08:24:19 10/01/19 25 10/01/2024 CBC WITH DIFFE RENTI AL/PL ATELE T eos 2 % notest ab. Not Available [facility] ([facility]) [address] [facility], [place], [address], 10/01/2024 08:24:19 10/01/19 25 10/01/2024 CBC WITH DIFFE RENTI AL/PL ATELE T basos 1 % notest ab. Not Available [facility] ([facility]) [address] [facility], [place], [address], 10/01/2024 08:24:19 10/01/19 25 10/01/2024 CBC WITH DIFFE RENTI AL/PL ATELE T neutrophils (absolute) 5.6 x10e3 /uL 1.4-7. 0 Not Available [facility] ([facility]) [address] [facility], [place], [address], 10/01/2024 08:24:19 10/01/19 25 10/01/2024 CBC WITH DIFFE RENTI AL/PL ATELE T lymphs (absolute) 2.7 x10e3 /uL 0.7-3. 1 Not Available [facility] ([facility]) [address] [facility], [place], [address], 10/01/2024 08:24:19 10/01/19 25 10/01/2024 CBC WITH DIFFE RENTI AL/PL ATELE T monocytes(ab solute) 0.7 x10e3 /uL 0.1-0. 9 Not Available [facility] ([facility]) [address] [facility], [place], [address], 10/01/2024 08:24:19 10/01/19 25 10/01/2024 CBC WITH DIFFE RENTI AL/PL ATELE T eos (absolute) 0.2 x10e3 /uL 0.0-0. 4 Not Available [facility] ([facility]) [address] [facility], [place], [address], 10/01/2024 08:24:19 10/01/19 25 10/01/2024 CBC WITH DIFFE RENTI AL/PL ATELE T baso (absolute) 0.1 x10e3 /uL 0.0-0. 2 Not Available [facility] ([facility]) [address] [facility], [place], [address], 10/01/2024 08:24:19 10/01/19 25 10/01/2024 CBC WITH DIFFE RENTI AL/PL ATELE T immature granulocytes 1 % notest ab. Not Available [facility] ([facility]) [address] [facility], [place], [address], 10/01/2024 08:24:19 10/01/19 25 10/01/2024 CBC WITH DIFFE RENTI AL/PL ATELE T immature grans (abs) 0.1 x10e3 /uL 0.0-0. 1 Not Available [facility] ([facility]) [address] [facility], [place], [address], 10/01/2024 08:24:19 02/25/20 24 03/09/2019 PFT, compl ete No observ ation record ed. [address], [place], [address], 02/27/2024 21:30:57 11/11/19 25 11/10/2024 XR, chest No observ ation record ed. [address], [place], [address], 11/11/2024 09:12:50 11/11/19 25 11/10/2024 CT, chest , w/o contr ast No observ ation record ed. [address], [place], [address], 11/22/2024 22:38:13 11/18/19 25 11/17/2024 XR, chest No observ ation record ed. [address] [facility], [place], [address], 11/18/2024 10:16:53 11/24/19 25 11/23/2024 XR, chest , 2 view No observ ation record ed. [address], [place], [address], 11/25/2024 14:59:46 11/25/19 25 11/23/2024 stres s echoc ardio gram with doppl er color flow (PROC ) No observ ation record ed. [address], [place], [address], 11/25/2024 15:02:11 11/27/19 25 11/25/2024 XR, chest No observ ation record ed. [address], [place], [address], 11/29/2024 22:36:06 11/27/19 25 11/26/2024 CT, angio gram, chest , w/ contr ast No observ ation record ed. [address], [place], [address], 11/29/2024 22:36:06 11/29/19 25 11/28/2024 vicente can cardi olite stres s test (PROC ) No observ ation record ed. [place] [id number], [place], [address], 11/29/2024 21:46:22 11/29/19 25 11/28/2024 exerc ise stres s test No observ ation record ed. [address], [place], [address], 11/29/2024 22:36:06 11/29/19 25 11/28/2024 US, doppl er, venou s No observ ation record ed. [address], [place], [address], 11/29/2024 22:36:06 11/30/19 25 11/24/2024 bernabe r monit or No observ ation record ed. [address] [facility] [address], [place], [address], 11/29/2024 22:36:07 12/02/19 25 11/23/2024 [place], [facility] ardio gram No observ ation record ed. [address], [place], [address], 12/02/2024 09:04:01 Result Notes None recorded. Problems Name Problem SNOMED Code Status Onset Date Resolution Date Notes Provider Name and Address Organization Details Recorded Time Low back pain 964093662 Active 2020 Not Available [facility] 3 17:06:31 At increased risk of nutritiona l deficit 974925285 Active 2021 Not Available [facility] 3 17:06:31 HIV screening Active 2021 Not Available [facility] 3 17:06:31 Chronic hypoxemic respirator y failure 211760631 Active 2023 Satinder Valdez MD Attn: Accounting ,[address] [facility], [place], [address] , [place] [facility] 4 22:10:22 HIV screening declined 3109228241954 00 Active 2023 Satinder Valdez MD Attn: Accounting ,[address] [facility], [place], [address] , [place] [facility] 4 14:50:08 Mammogram declined 612137593 Active 2023 Satinder Valdez MD Attn: Accounting ,[address] [facility], [place], [address] , [place] [facility] 4 14:50:09 Colonoscop y declined 1249535339485 00 Active 2023 Satinder Valdez MD Attn: Accounting ,[address] [facility], [place], [address] , [place] [facility] 14:50:10 Influenza vaccinatio n declined 866463543 Active 2023 Satinder Valdez MD Attn: Accounting ,[address] [facility], [place], [address] , [place] [facility] 4 14:50:12 SARS-CoV-2 vaccinatio n declined 1099962152 Active 2023 Satinder Valdez MD Attn: Accounting ,[address] [facility], [place], [address] , [place] [facility] 14:50:13 Lung cancer screening declined 6037805897776 9105 Active 2023 Satinder Valdez MD Attn: Accounting ,[address] [facility], [place], [address] , [place] [facility] 14:50:14 Chronic obstructiv e pulmonary disease 98115642 Active Not Available [facility] 3 17:06:31 Gastroesop hageal reflux disease 042879708 Active Not Available [facility] 3 17:06:31 Tobacco user 919860419 Active Not Available [facility] 3 17:06:31 Obesity 194214748 Active Not Available [facility] 3 17:06:31 Hyperlipid emia 16254469 Active Not Available [facility] 3 17:06:31 Depressive disorder 63427014 Active 2016 Not Available [facility] 3 17:06:31 Bronchitis 86690016 Active 2016 Not Available [facility] 3 17:06:31 Notes:Some problems listed i n Document: #[id number] could not be added to this patient's chart. Please review this document and add these problems to the patient's chart manually as needed. Problem Notes None recorded. Procedures Surgical History Date Name Laterality Status Provider Name and Address Organization Details Recorded Time Caesarean Section completed Jacki Gipson MA [facility] 11/16/2014 14:25:00 Cholecystectomy completed Jacki Gipson MA [facility] 11/16/2014 14:25:00 Imaging Results None recorded. Procedure Notes None recorded. Medical Equipment None Reported. Allergies Allergen ID Allergen Name Allergen Category Reaction Reaction Severity Criticality Documentation Date Start Date Code Code System Note Provider Name and Address Organization Details Recorded Time 056983 codeine medicatio n itching moderate Not available 2024 2670 RxNorm Wendy Reaves MA [facility] 5 12:17:26 Medications Name Sig Start Date Stop [...] completed Not Available Not Available Not Available diltiazem CD 180 mg capsule,e xtended release 24 hr TAKE 1 CAPSULE BY MOUTH DAILY active Not Available Not Available No t Available benzonata te 200 mg capsule Take [...] tablet TAKE 1 TABLET BY MOUTH EVERY 8 HOURS active Not Available Not Available No t Available prednison e 50 mg tablet TAKE 1 TABLET BY MOUTH DAILY FOR COPD EXACERBA TION active Not Available Not Available No t Available nitroglyc johana 0.4 mg sublingua l tablet DISSOLVE 1 TABLET UNDER THE TONGUE EVERY 5 MINUTES FOR 3 DOSES NEEDED FOR CHEST PAIN active Not Available Not Available No t Available aspirin 81 mg chewable tablet CHEW AND SWALLOW 1 TABLET BY MOUTH DAILY AT 8 AM active Not Available Not Available No t Available metoprolo l succinate ER 25 mg tablet,ex tended release 24 hr TAKE 1 TABLET BY MOUTH TWICE DAILY active Not Available Not Available No t Available levalbute rol 1.25 mg/3 mL solution for nebulizat ion INHALE 1.25 MG BY MOUTH EVERY 4 HOURS NEEDED SHORTNES S OF BREATH active Not Available Not Available No t [...] completed Not Available Not Available Not Available rosuvasta tin 20 mg tablet TAKE 1 TABLET BY MOUTH EVERY EVENING active Not Available Not Available No t Available Spiriva with [employer] r 18 mcg [...] in Arterial blood by Pulse oximetry Systolic And Diastolic Provider Name and Address Organization Details Last Updated DateTime 5 158.75 cm 34.3 kg/m2 54121.7 1 g 107 /min 93 % 93 % 138/76 mm[Hg] Wendy Reaves MA [facility] 5 12:23:06 Date Recorded Body height Body mass index (BMI) Body weight Oxygen saturation Oxygen saturation in Arterial blood by Pulse oximetry Body temperature Heart rate Systolic And Diastolic Provider Name and Address Organization Details Last Updated DateTime 4 158.75 cm 31.8 kg/m2 69943.4 1 g 97 % 97 % 97.8 [degF] 94 /min 140/90 mm[Hg] Shaina Wise [place] [facility] 4 15:25:13 Date Recorded Body height Body mass index (BMI) Body weight Heart rate Oxygen saturation Oxygen saturation in Arterial blood by Pulse oximetry Systolic And Diastolic Provider Name and Address Organization Details Last Updated DateTime 4 158.75 cm 31.1 kg/m2 80499.0 4 g 96 /min 98 % 98 % 120/66 mm[Hg] Judy Tafoya MA [facility] 4 16:17:17 Date Recorded Body height Body mass index (BMI) Body weight Oxygen saturation Oxygen saturation in Arterial blood by Pulse oximetry Heart rate Systolic And Diastolic Provider Name and Address Organization Details Last Updated DateTime 4 158.75 cm 32.8 kg/m2 41567.8 9 g 98 % 98 % 90 /min 124/72 mm[Hg] Wendy Ritchie MA [facility] 4 12:38:08 Date Recorded Body height Body mass index (BMI) Body weight Heart rate Oxygen saturation Oxygen saturation in Arterial blood by Pulse oximetry Systolic And Diastolic Provider Name and Address Organization Details Last Updated DateTime 3 158.75 cm 32 kg/m2 14545.4 4 g 115 /min 96 % 96 % 128/80 mm[Hg] Pratibha Xiao MA [facility] 3 14:34:55 Social History Question Answer Notes LastModified by Organizat ion Details LastModified Time Tobacco Smoking Status Current Every Day Smoker Jacki Gipson MA [facility] 11/16/2014 14:25:00 Do You Have An Advance [...] History Nothing Reported. Medical History Condition Response Have you had a mammogram in the last yea r? N Have you had a colonoscopy in the last 1 0 years? N COPD Y Asthma Y Gynecological HistoryNo gynecological history recorded. Obstetrics History GPAL:G 0 P 0 0 0 0 Immunizations Vaccine Type Date Status Note Provider Nam e and Address Organization Details Recorded Time Tdap 11/17/2023 completed Sylvia Baumann MA [facility], [place] - [facility] 2024 09:41:35 Past Encounters Encounter ID Performer Location Encounter Start Date Encounter Closed Date Diagnosis/Indication Diagnosis SNOMED-CT Code Diagnosis ICD10 Code Diagnosis Note [id number] [facility]ILE[facility] Howard (Adult Med) [address] [place] [address] 11/16/2014 14:11:25 11/16/2014 17:25:43 Chronic obstructive pulmonary disease 48091384 Gastroesop hageal reflux disease 173495103 Tobacco user 295457028 Obesity 837776590 Hyperlipidemia 59425142 [id number] MARILEE Howard (Adult Med) [address] [place] [address] 02/25/2016 14:30:31 02/25/2016 18:01:33 Chronic obstructive pulmonary disease 97163899 J44.9 Gastroesop hageal reflux disease 545398221 K21.9 Hyperlipidemia 52269021 E78.5 Obesity 140138495 E66.9 Tobacco user 171013133 Z 72.0 Normal grief reaction 27 1899365 F43.20 [id number] Rosi Begum MD [facility] (Adult Med) [address] [place] [id number] 11/13/2016 14:27:12 11/13/2016 17:33:33 Chronic obstructive pulmonary disease 96141759 J44.9 Gastroesop hageal reflux disease 966355743 K21.9 Obesity 907088245 E66.9 Hyperlipidemia 88916560 E78.5 Depressive disorder 3548 9007 F32.89 grief reaction , lost mom last November) [id number] [facility] [address] [place] [address] 0 04/16/2017 15:05:45 04/20/2017 09:00:22 Chronic obstructive pulmonary disease 51851682 J44.9 Bronchitis 71385089 J40 Gastroesop hageal reflux disease 314556720 K21.9 Obesity 694161761 E66.9 Hyperlipidemia 49212163 E78.5 [id number] [facility] [address] [place] [id number] 03/16/2018 16:39:42 03/17/2018 10:11:16 Bronchitis 58217324 J40 Chronic ob structive pulmonary disease 85843590 J44.9 Depressive disorder 3548 9007 F32.89 grief reaction , lost mom last November) Tobacco user 048183015 Z 72.0 Gastroesop hageal reflux disease 468365997 K21.9 Obesity 256201758 E66.9 Hyperlipidemia 30514733 E78.5 [id number] MD Terri Almonte (Adult Med) [address] [place] [id number] 08/30/2018 16:13:03 08/31/2018 08:48:16 Bronchitis 39823339 J40 Tobacco user 737122810 Z 72.0 Chronic ob structive pulmonary disease 53877021 J44.9 Gastroesop hageal reflux disease 343707631 K21.9 Obesity 216748983 E66.9 Hyperlipidemia 95235112 E78.5 Depressive disorder 3548 9007 F32.89 grief reaction , lost mom last November (2015) [id number] Rosi Begum MD [facility] (Adult [facility]) [address] [place] [address] [phone] 0 09/26/2019 10:47:45 09/27/2019 08:42:42 Chronic obstructive pulmonary disease 84717182 J44.9 Gastroesop hageal reflux disease 345759197 K21.9 Hyperlipidemia 32203653 E78.5 Tobacco user 210432107 Z 72.0 [id number] MD [facility] (Adult Med) [address] [place] [address] [phone] 07/10/2020 08:17:48 07/10/2020 16:38:50 Chronic obstructive pulmonary disease 87338138 J44.9 Gastroesop hageal reflux disease 947656225 K21.9 Hyperlipidemia 19997158 E78.5 Tobacco user 128764085 Z 72.0 Depressive disorder 3548 9007 F32.89 grief reaction , lost mom last November (2015) [id number] [facility] [address] [place] [address] [phone] 12/12/2020 10:01:54 12/12/2020 13:53:29 Chronic obstructive pulmonary disease 15551458 J44.9 Gastroesop hageal reflux disease 878824229 K21.9 Hyperlipidemia 74228859 E78.5 Tobacco user 598355643 Z 72.0 Low back pain 870514054 M54.5 [id number] MD [facility] (Adult Med) [address] [place] [address] [phone] 07/22/2021 14:57:13 07/22/2021 15:30:47 Chronic obstructive pulmonary disease 14795571 J44.9 Gastroesop hageal reflux disease 126120037 K21.9 Hyperlipidemia 38236166 E78.5 Tobacco user 421497885 Z 72.0 Obesity 069967333 E66.9 Renewal of prescription 467705781 Z76.0 Low back pain 551239727 M54.50 At increas ed risk of nutritional deficit 760140200 Z91.89 Depressive disorder 3548 9007 F32.89 grief reaction , lost mom last November (2015) [id number] Rosi Begum MD [facility] (Adult Med) [address] [place] [address] [phone] 04/01/2022 16:13:01 04/02/2022 10:16:26 Bronchitis 86416098 J40 Chronic ob structive pulmonary disease 40122947 J44.9 Depressive disorder 3548 7 F32.89 grief reaction , lost mom last November (2015) Gastroesop hageal reflux disease 407421238 K21.9 Hyperlipidemia 58571703 E78.5 Low back pain 512938041 M54.50 Obesity 217655122 E66.9 Tobacco user 844882861 Z 72.0 At increas ed risk of nutritional deficit 434157727 Z91.89 HIV screening 710060037 Z11.4 [id number] Rosi Begum MD [facility] (Adult Med) [address] [place] [address] [phone] 08/07/2022 16:27:29 08/08/2022 15:12:17 Obesity 543471429 E66.9 BMI is 33.5.he has been advised to watch her diet, exercise and keep the weight down. Chronic ob structive pulmonary disease 79105712 J44.9 Stable.Wan ts to refill med. Depressive disorder 3544 4367 F32.89 Under the care of her psychiatri st. Hyperlipidemia 11354742 E78.5 Low animal fat diet. Tobacco user 243476702 Z 72.0 Advised her to quit smoking. Colon canc er screening declined 7809890074 9109 Z53.20 She refused 08-07-2022 . Administra tion of diphtheria, pertussis, and tetanus vaccine 996024795 Z23 She refused 08-07-2022 . Influenza vaccination declined 061108613 Z28.21 She refused 08-07-2022 . Mammogram declined 84315 5004 Z53.20 She refused 08-07-2022 , Screening for malignant neoplasm of cervix 352949157 Z12.4 She refused 08-07-2022 . [id number] Rosi Begum MD [facility] (Adult Med) [address] [place] [address] [phone] 02/25/2023 16:38:06 02/26/2023 14:14:06 Osteoarthritis 201655998 M19.90 She said that she has arthritis , it huts when weather changes, wants shot term steroid to easy the pain of back. . Discussed with patient, that steroid has potential side effects as well. such as pathologic fracture, hyperglyce jacinto, bleeding ulcer, poor healing of wound, adrenal insufficie ncy just new a few, She understood . Chronic ob structive pulmonary disease 07590410 J44.9 Stable.Wan ts to refill med.Advair is not on 340-B, will order dulera instead. Smoker 39081252 F17.200 Advised her to quit smoking. She declined LDCT, she smokes half pack/day for more than 40 years. She is aware of cigarettes smoking can cause permanent emphysema. cancer of lung, throat, or mouth and other diseases. Obesity 715320779 E66.9 BMI is 33.5.he has been advised to watch her diet, exercise and keep the weight down. As 02-25-23, BMI is down to 32.5. HIV screen ing declined 2229344437 60094 Z53.20 She declined 02-25-23. [id number] Rosi Begum MD [facility] (Adult Med) [address] [place] [address] [phone] 05/29/2023 14:29:10 06/02/2023 16:10:16 Chronic obstructive pulmonary disease 73515960 J44.9 Stable.Wan ts to refill med.Advair is not on 340-B, will order dulera instead. She wants advair inhaler refill, but it is not on the list. and this provider contacted medicare pharmacy no maintenanc e inhaler yeal 340-B list any more. Smoker 51936851 F17.200 Advised her to quit smoking. She declined LDCT, she smokes half pack/day for more than 40 years. She is aware of cigarettes smoking can cause permanent emphysema. cancer of lung, throat, or mouth and other diseases. Hyperlipidemia 65176463 E78.5 Low animal fat diet. Obesity 020912519 E66.9 BMI is 33.5.he has been advised to watch her diet, exercise and keep the weight down. As 02-25-23, BMI is down to 32.5. As 05-29-23, BMI down to 32. Mammogram declined 23077 5004 Z53.20 She refused 08-07-2022 , She declined 05-29-23. Cervical c ancer Papanicolaou smear screening declined 5907033470 23057 Z53.20 She declined 05-29-23. Colon canc er screening declined 6133446770 9109 Z53.20 She refused 08-07-2022 . She declined 05-29-23. HIV screen ing declined 0125691798 68736 Z53.20 She declined 02-25-23. She declined 05-29-23. [id number] Satinder Valdez MD [facility] [address] [place] [address] 01/07/2024 14:34:10 01/07/2024 16:25:53 Depression screening 988530467 Z13.31 Chronic ob structive pulmonary disease 12230126 J44.9 Chronic hy poxemic respiratory failure 355266937 J96.11 Hyperlipidemia 04341989 E78.5 [id number] Satinder Valdez MD [facility] (Adult Med) [address] [place] [address] [phone] 02/24/2024 15:59:57 02/24/2024 17:12:39 Smoker 81936579 F17.200 Chronic ob structive pulmonary disease 91340379 J44.9 [id number] Satinder Valdez MD [facility] (Adult Med) [address] [place] [address] [phone] 04/29/2024 12:05:20 04/29/2024 13:35:35 Hyperlipidemia 85569517 E78.5 Chronic ob structive pulmonary disease 42217472 J44.9 HIV screen ing declined 9583051009 37581 Z53.20 Mammogram declined 45015 5004 Z53.20 Colonoscopy declined 658 8882012 71487 Z53.20 Influenza vaccination declined 491761170 Z28.21 SARS-CoV-2 vaccination declined 7632030738 Z28.21 Lung cance r screening declined 8551138952 8864547 Z53.20 [id number] Satinder Valdez MD [facility] (Adult Med) [address] [place] [address] [phone] 2024 11:44:40 2024 13:19:13 Body mass index 30+ - obesity 875637685 Z68.34 Hyperlipidemia 75854828 E78.5 Long-term drug therapy 934481366 Z79.899 Chronic ob structive pulmonary disease 21008318 J44.9 Gastroesop hageal reflux disease 688727119 K21.9 Health Concerns Section Related Observation LastModified by Organization Detai ls LastModified Time None Recorded Concern Status LastModified by Organization Details LastModified Time None Recorded Advance Directives Directive N: Payers Encounter Date Sequence Insurance Name Policy Number Policy Ford Covered Member ID Ford Member ID Guarantor Name 05/29/2023 1 [facility] ON OR AFTER 07/13/2020 - DUAL ELIGIBLE (MEDICARE REPLACEMENT/ADVANT AGE - HMO) [id number] Minnie Anguiano [id number] Minnie Anguiano 05/29/2023 2 [employer] [place] (MEDICARE REPLACEMENT/ADVANT AGE) Minnie Anguiano [id number] Minnie Anguiano 01/07/2024 1 [facility] ON OR AFTER 07/13/2020 - DUAL ELIGIBLE (MEDICARE REPLACEMENT/ADVANT AGE - HMO) [id number] Minnie Anguiano [id number] Minnie Anguiano 01/07/2024 2 [employer] [place] (MEDICARE REPLACEMENT/ADVANT AGE) Minnie Anguiano [id number] Minnie Anguiano 02/24/2024 1 [facility] ON OR AFTER 07/13/2020 - DUAL ELIGIBLE (MEDICARE REPLACEMENT/ADVANT AGE - HMO) [id number] Minnie Anguiano [id number] Minnie Anguiano 02/24/2024 2 [employer] [place] (MEDICARE REPLACEMENT/ADVANT AGE) Minnie Anguiano [id number] Minnie Anguiano 04/29/2024 1 [facility] ON OR AFTER 07/13/2020 - DUAL ELIGIBLE (MEDICARE REPLACEMENT/ADVANT AGE - HMO) [id number] Minnie Anguiano [id number] Minnie Silvio 2024 1 [facility] - DOS ON OR AFTER 2020 - DUAL ELIGIBLE (MEDICARE REPLACEMENT/ADVANT AGE - HMO) [id number] Minnie Anguiano [id number] Minnieterrence Anguiano Notes Date Note Type Note [...] HPI. Rosi Begum MD Attn: Accounting, [address] [facility], [place], [address], [place] [facility] 05/29/2023 15:36:32 01/07/2024 text/html follow-up medica l problems interval history cardiac cath 20% lad aspirin atorvastatin metoprolol discontinued by Cardiology COPD 2 L oxygen continues to smoke breathing stable Satinder Valdez MD Attn: Accounting, [address] [facility], [place], [address], [place] [facility] 01/07/2024 22:13:28 02/24/2024 text/html ER for a COPD flare-up we do not have the records she is doing a little bit better she just quit smoking about 4 days ago she has not had any chest pain breathing has improved Satinder Valdez MD Attn: Accounting, [address] [facility], [place], [address], [place] [facility] 02/24/2024 21:44:51 04/29/2024 text/html COPD she has bee n doing pretty good with that stable. Dyslipidemia needs her atorvastatin refilled she can do better on a low-fat Satinder Valdez MD Attn: Accounting, [address] [facility], [place], [address], [place] [facility] 04/29/2024 14:50:42 2024 text/html COPD has been doing fairly well. Dyslipidemia she quit taking atorvastatin can not really tell me why rhinitis doing good on fluticasone. GERD denies any heartburn Satinder Valdez MD Attn: Accounting,[address] [facility], [place], [address], [facility] 2024 16:22:07 OBGyn Episode No OBEpisode recorded.
--- OUTSIDE RECORDS SUMMARY | 2024-12-06 11:31 | XMS_ITS | Clinical Summary ---
Author Organization [facility] Address [address] [place] [address] Care Team Providers Care Emergency Management Coordinator Name Role Phone Ethan Cerrato Primary Care Provider + Source Comments [facility],non-owned Affiliates and Associated Physician Practices is amultiple site organization consisting of ambulatory clinics and hospital sitesin [place], [place], [place] and [place]. This disclosure is being madepursuant to the Care Everywhere program and may not contain all information available regarding this patient. 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 Gender Identity Not on file Sexual Orientation Not on file Last Filed Vital Signs Vital Sign Reading Time Taken Comments Blood Pressure 122/80 07/25/2017 10:47 AM DENTAL HYGIENE TEACHER Pulse 80 07/25/2017 10:47 AM DENTAL HYGIENE TEACHER Temperature 36.8 C (98.2 F) 07/25/2017 10:47 AM DENTAL HYGIENE TEACHER Respiratory Rate 20 07/25/2017 10:47 AM DENTAL HYGIENE TEACHER Oxygen Saturation 94% 07/25/2017 10:47 AM DENTAL HYGIENE TEACHER Inhaled Oxygen Concentration - - Weight 74.8 kg (165 lb) 07/25/2017 10:47 AM DENTAL HYGIENE TEACHER Height 160 cm (5' 3) 07/25/2017 10:47 AM DENTAL HYGIENE TEACHER Body Mass Index 29.23 07/25/2017 10:47 AM DENTAL HYGIENE TEACHER Plan of Treatment Health Maintenance Due Date [...] patient's age to complete this topic Insurance [facility] Care Teams Emergency Management Coordinator Relationship Specialty Start Date End Date Ethan Cerrato PA [address] [place] [address] PCP - General Physician Supplier Diversity Director 07/25/17
--- OUTSIDE RECORDS SUMMARY | 2024-12-06 11:31 | XMS_ITS | Referral Summary ---
Author Organization [facility] [address] [address] [place] [phone] Care Team Providers Care Oncology Social Worker Name Role Phone Parish Valdez MD Primary Care Provider [phone] Encounters Date Type Department Care Team Description 12/06/2024 Orders Only [facility] Cardiology [address] [place] [address] [address] [place] [phone] Veronika Kim NP 11/30/2024 Orders Only [facility] Cardiology [address] [place] [address] [place] [address] [phone] Angelica Lozada MD 11/29/2024 Results Follow-Up [facility] Cardiology [address] [place] [address] [place] [phone] Felisa Bolivar, JESSICA 24 HR Holter Monitor 11/26/[address] [facility] Health Information Management [address] [place] [address] Cooper Mathias MD 11/24/2024 2:45 PM CDT Ancillary Procedure [facility] Medical [facility] Cardiology [address] [place] [address] [place] [phone] Palpitations 11/23/[address] [facility] Health Information Management [address] [place] [address] Angelica Lozada MD from Last 3 Months Allergies Active Allergy Reactions Criticality Noted Date Comments Codeine Itching Low 11/27/2023 Medications aspirin 81 mg enteric coated tablet Take 1 tablet (81 mg total) by mouth every morning 04/17/202 4 Active nitroglycerin (NITROSTAT) 0.4 mg SL [...] CDT Plan of Treatment Not on file Procedures Procedure Name Priority Date/Time Associated Diagnosis Comments CARDIOLOGY DOCUMENT SCAN Routine 11/28/2024 8:37 AM CDT CARDIOLOGY DOCUMENT SCAN Routine 11/27/2024 1:28 PM CDT CARDIOLOGY DOCUMENT SCAN Routine 11/26/2024 1:26 PM CDT CARDIOLOGY DOCUMENT SCAN 11/26/2024 SCAN - RADIOLOGY/IMAGING 11/26/2024 HOLTER MONITOR 24 HR Routine 11/24/2024 3:01 PM CDT Palpitations CARDIOLOGY DOCUMENT SCAN Routine 11/24/2024 12:49 PM CDT CARDIOLOGY DOCUMENT SCAN Routine 11/23/2024 1:23 PM CDT CARDIOLOGY DOCUMENT SCAN Routine 11/23/2024 12:43 PM CDT CARDIOLOGY DOCUMENT SCAN 11/23/2024 from Last 3 Months Results * Cardiology Document Scan (11/28/2024 8:37 AM CDT) Anatomical Region Laterality Modality Other Veronika Kim NP CV CARDIAC SERVICES PROCEDUR ES Final Result * Cardiology Document Scan (11/27/2024 1:28 PM CDT) Anatomical Region Laterality Modality Other Cooper Mathias MD CV CARDIAC SERVICES PROCE DURES Final Result * Cardiology Document Scan (11/26/2024 1:26 PM CDT) Anatomical Region Laterality Modality Other Cooper Mathias MD CV CARDIAC SERVICES PROCE DURES Final Result * SCAN - RADIOLOGY/IMAGING (11/26/2024) Anatomical Region Laterality Modality Other Cooper Mathias MD Final Res ult * Cardiology Document Scan (11/26/2024) Anatomical Region Laterality Modality Other Cooper Mathias MD CV CARDIAC SERVICES PROCE DURES Final Result * 24 HR Holter Monitor (11/24/2024 3:01 PM CDT) Anatomical Region Laterality Modality Electrocardiogra phy Narrative 11/29/2024 7:30 AM CDT AMBULATORY SAP ARIBA CONSULTANT REPORT Patient Name: Minnie Anguiano Date of : 1960 Requesting Physician: ANNITA Date of interpretation: 11/29/24 Type of monitor : 24 hour Holter monitor Date of the study/Enrollment period: 11/24/2024 Indication: Palpitations Quality of the study: Favorable, some rhythm strips with significant motion artifact Interpretation: Basic cardiac rhythm is sinus with normal [place], QRS and QT interval. The heart rate varied from a minimum of 52 to a maximum of 162. There was an average rate of 93. There were no pauses or abnormalities of AV conduction seen Supraventricular ectopic activity was infrequent consisting of PACs occurring with a rate of less than 1%. There were no runs of SVT and there were no examples of atrial fibrillation. Ventricular ectopic activity was infrequent with total PVC burden of 2%. There were several ventricular couplets identified there were no ventricular runs. There were 2 rhythm strips that were patient triggered but there were no symptoms specified. The cardiac rhythm was sinus with 1 PVC the 2nd strip showed sinus with no ectopic activity of any kind Conclusions: Benign 24 hour Holter monitor as detailed above To patient triggered rhythm strips were recorded without symptoms being specified, rhythm was sinus on both occasions Voice recognition software was used to complete this document, therefore, blacksmith hammer operator variances may occur. Parish Downing MD [facility] 11/29/24 Procedure Note Parish Downing MD - 11/29/2024 AMBULATORY SAP ARIBA CONSULTANT REPORT Patient Name: Minnie Anguiano Date of : 1960 Requesting Physician: ANNITA Date of interpretation: 11/29/24 Type of monitor : 24 hour Holter monitor Date of the study/Enrollment period: 11/24/2024 Indication: Palpitations Quality of the study: Favorable, some rhythm strips with significantmotion artifact Interpretation: Basic cardiac rhythm is sinus with normal [place], QRS and QTinterval. The heart rate varied from a minimum of 52 to a maximum of 162.There was an average rate of 93. There were no pauses or abnormalitiesof AV conduction seen Supraventricular ectopic activity was infrequent consisting of PACsoccurring with a rate of less than 1%. There were no runs of SVT andthere were no examples of atrial fibrillation. Ventricular ectopic activity was infrequent with total PVC burden of 2%.There were several ventricular couplets identified there were noventricular runs. There were 2 rhythm strips that were patient triggered but there were nosymptoms specified. The cardiac rhythm was sinus with 1 PVC the 2nd stripshowed sinus with no ectopic activity of any kind Conclusions: Benign 24 hour Holter monitor as detailed above To patient triggered rhythm strips were recorded without symptoms beingspecified, rhythm was sinus on both occasions Voice recognition software was used to complete this document, therefore,blacksmith hammer operator variances may occur. Parish Downing MD [facility] 11/29/24 Result Jacky Rosa MD CV CARDIAC SERVICES PROCEDURES F inal Result * Cardiology Document Scan (11/24/2024 12:49 PM CDT) Anatomical Region Laterality Modality Other Result Jacky Rosa MD CV CARDIAC SERVICES PROCEDURES F inal Result * Cardiology Document Scan (11/23/2024 1:23 PM CDT) Anatomical Region Laterality Modality Other Result Jacky Lozada MD CV CARDIAC SERVICES PROCEDU RES Final Result * Cardiology Document Scan (11/23/2024 12:43 PM CDT) Anatomical Region Laterality Modality Other Result Jacky Lozada MD CV CARDIAC SERVICES PROCEDU RES Final Result * Cardiology Document Scan (11/23/2024) Anatomical Region Laterality Modality Other Result Jacky Lozada MD CV CARDIAC SERVICES PROCEDU RES Final Result from Last 3 Months Insurance [facility] Care Teams Oncology Social Worker Relationship Specialty Start Date End Date Parish Valdez MD [address] [place] [id number] PCP - General Internal Medicine 01/01/24
--- OUTSIDE RECORDS SUMMARY | 2024-12-06 11:31 | XMS_ITS | Encounter Summary ---
Author Organization [facility] Address [address] [place] [address] Care Team Providers Care Carpet Weaver Name Role Phone Parish Valdez MD Primary Care Provider [phone] Encounter Details Date Type Department Care Team (Late st Contact Info) Description 12/06/2024 Orders Only [facility] Medical [facility] Cardiology [address] [place] [address] Veronika Kim NP [address] [place] [address] Social History Tobacco Use Types [...] DOCUMENT SCAN Routine 11/28/2024 8:37 AM CDT documented in this encounter Results * Cardiology Document Scan (11/28/2024 8:37 AM CDT) Anatomical Region Laterality Modality Other Veronika Kim NP CV CARDIAC SERVICES PROCEDUR ES Final Result documented in this encounter Visit Diagnoses Not on filedocumented in this encounter Care Teams Carpet Weaver Relationship Specialty [place] [address] [place], [place] [id number] PCP - General Internal Medicine 01/01/24 documented as of this encounter
--- OUTSIDE RECORDS SUMMARY | 2024-12-06 11:31 | XMS_ITS | Encounter Summary ---
Author Organization [facility] Address [address] [place] [address] Care Team Providers Care Refrigeration Tech Name Role Phone Parish Valdez MD Primary Care Provider [phone] Encounter Details Date Type Department Care Team (Late st Contact Info) Description 11/29/2024 Results Follow-Up [facility] Cardiology [address] [place] [address] Felisa Bolivar, RN 24 HR Holter Monitor Social History Tobacco Use Types Packs/Day Years [...] on file documented as of this encounter Visit Diagnoses Not on filedocumented in this encounter Care Teams Refrigeration Tech Relationship Specialty Start Date End Date Parish Valdez MD [address] [place] [address] PCP - General Internal Medicine 01/01/24 documented as of this encounter
--- OUTSIDE RECORDS SUMMARY | 2024-12-06 11:31 | XMS_ITS | CONTINUITY OF CARE DOCUMENT ---
Author Name alvaro john Address Unknown Organization [facility] Address [address] [place] [address] [address] [place] [address] Phone [phone] Care Team Providers Care Environmental Conflict Manager Name Role Phone MARGARET GABRIEL MD Unavailable MARGARET GABRIEL MD Unavailable INSURANCE PROVIDERS Payer name Policy type / Coverage type [employer] Medicaid 1 [id number]
--- OUTSIDE RECORDS SUMMARY | 2024-12-06 11:31 | XMS_ITS | Clinical Summary ---
Author Organization [facility] [address] [facility] [address] Address [address] [place] [address] Care Team Providers Care Roll Or Tape Edge Machine Operator Name Role Phone Parish Valdez MD Primary Care Provider [phone] Allergies Active Allergy Reactions Criticality Noted Date [...] Department Care Team Description 12/06/2024 Orders Only [facility] Cardiology [address] [place] [address] Veronika Kim NP 11/30/2024 Orders Only [facility] Cardiology [address] [place] [address] [address] [place] [phone] Angelica Lozada MD 11/29/2024 Results Follow-Up [facility] Cardiology [address] [place] [address] [place] [phone] Felisa Bolivar RN 24 HR Holter Monitor 11/26/2024 Orders Only [facility] Health Information Management [address] [place] [address] Cooper Mathias MD 11/24/2024 2:45 PM CDT Ancillary Procedure [facility] Cardiology [address] [place] [address] [place] [phone] Palpitations 11/23/2024 Orders Only [facility] Health Information Management [address] [place] [address] Angelica Lozada MD from Last 3 Months Medical History Medical [...] Vaccine (2 - Td or Tdap) 11/16/203301/2024 Procedures Procedure Name Priority Date/Time Associated Diagnosis [...] CDT) Anatomical Region Laterality Modality Other us Cooper Mathias MD CV CARDIAC SERVICES PROCE DURES Final Result * Cardiology Document Scan (11/26/2024 1:26 PM CDT) Anatomical Region Laterality Modality Other Result Jacky Mathias MD CV CARDIAC SERVICES PROCE DURES Final Result * SCAN - RADIOLOGY/IMAGING (11/26/2024) Anatomical Region Laterality Modality Other Result Jacky Mathias MD Final Res ult * Cardiology Document Scan (11/26/2024) Anatomical Region Laterality Modality Other Result Jacky Mathias MD CV CARDIAC SERVICES PROCE DURES Final Result * 24 HR Holter Monitor (11/24/2024 3:01 PM CDT) Anatomical Region Laterality Modality Electrocardiogra phy Narrative 11/29/2024 7:30 AM CDT AMBULATORY DISPENSARY ATTENDANT REPORT Patient Name: Minnie Anguiano Date of : 1960 Requesting Physician: ANNITA Date of interpretation: 11/29/24 Type of monitor : 24 hour Holter monitor Date of the study/Enrollment period: 11/24/2024 Indication: Palpitations Quality of the study: Favorable, some rhythm strips with significant motion artifact Interpretation: Basic cardiac rhythm is sinus with normal [place], QRS and QT interval. The heart rate [...] was used to complete this document, therefore, site identification specialist variances may occur. Parish Downing MD [facility] 11/29/24 Procedure Note Parish Downing MD - 11/29/2024 AMBULATORY DISPENSARY ATTENDANT REPORT Patient Name: Minnie Anguiano Date of : 1960 Requesting Physician: ANNITA Date of interpretation: 11/29/24 Type of monitor : 24 hour Holter monitor Date of the study/Enrollment period: 11/24/2024 Indication: Palpitations Quality of the study: Favorable, some rhythm strips with significantmotion artifact Interpretation: Basic cardiac rhythm is sinus with normal [place], QRS and QTinterval. The heart rate varied [...] software was used to complete this document, therefore,site identification specialist variances may occur. Parish Downing MD [facility] 11/29/24 Result [facility] us Dylan Rosa MD CV CARDIAC SERVICES PROCEDURES F inal Result * Cardiology Document Scan (11/24/2024 12:49 PM CDT) Anatomical Region Laterality Modality Other Result Jacky Rosa MD CV CARDIAC SERVICES PROCEDURES F inal Result * Cardiology Document Scan (11/23/2024 1:23 PM CDT) Anatomical Region Laterality Modality Other Result [facility] us Angelica Lozada MD CV CARDIAC SERVICES PROCEDU RES Final Result * Cardiology Document Scan (11/23/2024 12:43 PM CDT) Anatomical Region Laterality Modality Other us Angelica Lozada MD CV CARDIAC SERVICES PROCEDU RES Final Result * Cardiology Document Scan (11/23/2024) Anatomical Region Laterality Modality Other us Angelica Lozada MD CV CARDIAC SERVICES PROCEDU RES Final Result from Last 3 Months Insurance [facility] Care Teams Roll Or Tape Edge Machine Operator Relationship Specialty Start Date End Date Parish Valdez MD [address] [place], [place] [id number] PCP - General Internal Medicine 01/01/24
[2024-12-06 12:29] LABS: Basophils Absolute Auto 0.1 K/mm3 (0.0-0.1); Basophils Percent Auto 0.9 % (0.2-1.2); Eosinophils Absolute Auto 0.4 K/mm3 (0-0.3); Eosinophils Percent Auto 5.1 % (0-4.4); Hematocrit 47.8 % (37.0-47.0); Immature Granulocyte Absolute 0.03 K/mm3 (0.00-0.031); Immature Granulocyte Percent A 0.4 % (0-0.5); Lymphocytes Absolute Auto 1.86 K/mm3 (0.9-3.2); Lymphocytes Percent Auto 22.6 % (18.3-44.2); Mean Corpuscular HGB Conc 33.5 g/dl (32-36); Mean Corpuscular Hemoglobin 32.5 pg (26-34); Mean Platelet Volume 10.1 fl (7.4-10.4); Monocytes Absolute Auto 0.6 K/mm3 (0.1-0.6); Monocytes Percent Auto 7.7 % (2.6-8.5); Neutrophils Absolute Auto 5.2 K/mm3 (1.3-6.7); Neutrophils Percent Auto 63.3 % (45.5-73.1); Platelet Count Result 267 k/mm3 (150-375); Red Blood Count 4.93 M/mm3 (4.2-5.4); Red Cell Distribution Width 13.2 % (11.5-14.5); White Blood Count 8.2 K/mm3 (4.5-10.0)
[2024-12-06 12:38] LABS: Alanine Aminotransferase 32 U/L (6-35); Albumin Level 4.7 g/dL (3.5-5.1); Alkaline Phosphatase 59 U/L (38-126); Anion Gap 9 mmol/L (4-12); Aspartate Amino Transferase 35 U/L (14-36); Bilirubin,Total 0.9 mg/dL (0.2-1.3); Blood Urea Nitrogen 11 mg/dL (7-17); Calcium 9.7 mg/dL (8.4-10.2); Carbon Dioxide 27 mmol/L (22-30); Chloride 103 mmol/L (98-107); Estimated CRCL calculation 57 ml/min; Estimated Glomerular Filt Rate > 60; Glucose 107 mg/dL (65-110); Potassium 4.1 mmol/L (3.4-5.0); Sodium 139 mmol/L (137-145)
[2024-12-06] MEDS: LACTATED RINGERS 1,000 ML 999 ML IV CONT (13:25)
--- NOTE | 2024-12-06 13:30 | ED.GENADULT ---
HPI - General Adult General Chief complaint: Shortness of Breath/Dyspnea Stated complaint: Shortness of breath-palpitations Time Seen by Provider: 12/06/24 13:13 History of Present Illness HPI narrative: 64 old female history of COPD and recent multiple visits for tachycardia presents to the emergency department complaining increased heart rate that started last night. Patient states she does still continue to smoke. Patient was was thought to have some SVT which was atrial tachycardia. Patient did have a cardiac workup that was completely unremarkable including a normal echocardiogram, patient's EKG is not concerning. Did have a cardiac catheterization from less than a year ago showing minimal coronary disease. At time of discharge patient's metoprolol was stopped and patient was switched to diltiazem. Cardiology felt diltiazem may be better SVT and management giving her underlying COPD and they opted to avoid beta-blockers. Patient states she has been taking her diltiazem. Patient reports that she felt her heart rate was controlled until last night when she began having worsening shortness of breath, anxiety and increased heart palpitations. Related Data Home Medications ?Medication ?Instructions ?Recorded ?Confirmed ?Last Taken ?Type umeclidinium 62.5 mcg/actuation 1 inh inhalation DAILY 10/26/23 11/26/24 11/26/24 History blister powder for inhalation (Incruse Ellipta) Allergies Allergy/AdvReac Type Severity Reaction Status Date / Time codeine AdvReac Itching Verified 11/23/24 10:50 Review of Systems Review of Systems: All systems reviewed & are unremarkable except as noted in HPI and below PMFSH Past Medical History Medical History Tobacco abuse Chronic obstructive pulmonary disease Coronary artery disease (10/2023) Nuclear stress test showed a large, severe non reversible infarcts including multiple meyers of the apex and mid anterior and mid posterior segments consistent with infarct with no reversible ischemia. Surgical History Surgical History History of section Family History Family History Mother Cerebrovascular accident Sibling FH: CABG (coronary artery bypass surgery) Father Stented coronary artery Social History Social History Social History: Surrogate medical decision maker: Meghan Babcock, daughter. Code status: Full code. Smoking packs per day: 0.5 Smoking cigarettes per day: 10.0 Years smoked: 40 Smoking pack-years: 20.00 Smoking status: Current some day smoker Tobacco type: cigarettes Second hand tobacco smoke exposure: Yes Alcohol intake: former Drinks per week: 28 Substance use: never Substance use type: does not use Last use: 10/11/24 Do You Feel Safe in your Home?: Yes Lack of Transportation: No Lack of Food: Never True Current Housing: I Have Housing Concerned About Future Housing: No Difficulty Paying Gas/Electric Bills: No Difficulty Paying for Meds: No Currently Unemployed: No Education: High School Diploma/GED Difficulty w/ Childcare or Family Care: No Living arrangements: with family Spiritual care concerns: No Exam Narrative: APPEARANCE: Anxious appearing HEAD: normocephalic, atraumatic. EYES: PERRLA/EOMI, conjunctivae clear. NOSE: Normal no drainage EARS:TMS clear with good light reflex. THROAT: Pharynx clear, no exudate. NECK: Supple. No adenopathy, no masses. RESPIRATORY: Small amount of expiratory wheeze with minimal air movement CARDIOVASCULAR: Sinus tachycardia with heart rate of 115 ABDOMINAL: Soft, nontender, nondistended, normal bowel sounds MUSCULOSKELETAL: Moves all extremities. Strength/ROM intact, No edema, No calf tenderness. NEURO: Alert. Cranial nerves II through XII intact. Good gait. Good coordination SKIN: Warm, dry. Normal Color Course Vital Signs Vital signs: Vital Signs Temperature 97.6 F 12/06/24 11:31 Pulse Rate 123 H 12/06/24 11:31 Respiratory Rate 24 H 12/06/24 11:31 Blood Pressure 152/78 H 12/06/24 11:31 Pulse Oximetry 92 12/06/24 11:31 Oxygen Delivery Room Air 12/06/24 11:31 Temperature 97.6 F 12/06/24 11:31 Pulse Rate 102 H 12/06/24 19:40 Respiratory Rate 18 12/06/24 19:40 Blood Pressure 125/75 12/06/24 19:40 Pulse Oximetry 93 12/06/24 19:40 Oxygen Delivery Room Air 12/06/24 11:42 Medical Decision Making MDM Narrative Medical decision making narrative: [age] old female present to the emergency department for evaluation for tachycardia and increased shortness of breath. Patient has had multiple visits to the emergency department related to atrial tachycardia. Patient is a smoker does continue to smoke. Patient is not on oxygen at home. Patient does expiratory wheeze on exam and was treated with a breathing treatment and IV Solu-Medrol. Patient does have an O2 requirement and she desaturated down to 87% on room air. Patient does not have an oxygen requirement typically and does not have oxygen at home. Suspect the patient's tachycardia is most likely with a did to a COPD exacerbation. Patient is currently afebrile with no leukocytosis and hemoglobin of 16. No acute abnormalities on the patient's CMP. Case discussed with hospitalist patient was accepted for admission. Differential Diagnosis Differential Diagnosis: SVT, atrial tachycardia, pneumonia, COVID, RSV, influenza, dehydration, COPD Vital Signs Vital Signs: Vital Signs Temperature 97.6 F 12/06/24 11:31 Pulse Rate 123 H 12/06/24 11:31 Respiratory Rate 24 H 12/06/24 11:31 Blood Pressure 152/78 H 12/06/24 11:31 Pulse Oximetry 92 12/06/24 11:31 Oxygen Delivery Room Air 12/06/24 11:31 Temperature 97.6 F 12/06/24 11:31 Pulse Rate 102 H 12/06/24 19:40 Respiratory Rate 18 12/06/24 19:40 Blood Pressure 125/75 12/06/24 19:40 Pulse Oximetry 93 12/06/24 19:40 Oxygen Delivery Room Air 12/06/24 11:42 Lab Data Lab results reviewed: Yes I reviewed the patient's lab results. 12/06/24 12:19 12/06/24 12:19 Labs: Lab Results 12/06/24 Range/Units 12:19 WBC 8.2 (4.5-10.0) K/mm3 RBC 4.93 (4.2-5.4) M/mm3 Hgb 16.0 H (12.0-15.0) g/dL Hct 47.8 H (37.0-47.0) % MCV 97.0 (80-100) fl MCH 32.5 (26-34) pg MCHC 33.5 (32-36) g/dl RDW 13.2 (11.5-14.5) % Plt Count 267 (150-375) k/mm3 MPV 10.1 (7.4-10.4) fl Immature Gran % (Auto) 0.4 (0-0.5) % Neut % (Auto) 63.3 (45.5-73.1) % Lymph % (Auto) 22.6 (18.3-44.2) % [place] % (Auto) 7.7 (2.6-8.5) % Eos % (Auto) 5.1 H (0-4.4) % Baso % (Auto) 0.9 (0.2-1.2) % Lymph # (Auto) 1.86 (0.9-3.2) K/mm3 [place] # (Auto) 0.6 (0.1-0.6) K/mm3 Eos # (Auto) 0.4 H (0-0.3) K/mm3 Baso # (Auto) 0.1 (0.0-0.1) K/mm3 Abs Immat Gran (auto) 0.03 (0.00-0.031) K/mm3 Absolute Neuts (auto) 5.2 (1.3-6.7) K/mm3 Absolute Nucleated RBC 0.000 (0.0-0.012) K/mm3 Nucleated RBC % 0.0 (0.0-0.2) % Sodium 139 (137-145) mmol/L Potassium 4.1 (3.4-5.0) mmol/L Chloride 103 (98-107) mmol/L Carbon Dioxide 27 (22-30) mmol/L Anion Gap 9 (4-12) mmol/L BUN 11 (7-17) mg/dL Creatinine 0.93 (0.7-1.0) mg/dL Estim Creat Clear Calc 57 ml/min Estimated GFR > 60 (59 - ) Glucose 107 (65-110) mg/dL Calcium 9.7 (8.4-10.2) mg/dL Total Bilirubin 0.9 (0.2-1.3) mg/dL AST 35 (14-36) U/L ALT 32 (6-35) U/L Alkaline Phosphatase 59 (38-126) U/L Total Protein 8.0 (6.3-8.2) g/dL Albumin 4.7 (3.5-5.1) g/dL Imaging Data Radiologist's impression: Impressions Chest X-Ray 12/06/24 12:40 IMPRESSION: No focal infiltrate or effusion. If clinical suspicion persists, cross-sectional imaging (noncontrast enhanced CT examination of the chest) is suggested for further evaluation. Discharge Plan Discharge Clinical Impression: COPD exacerbation, Tachycardia, Hypoxic Patient Disposition: Still a Patient Condition: Serious
[2024-12-06] MEDS: LEVALBUTEROL NEB 1.25 MG/3 ML INHALATION (13:44)
--- OUTSIDE RECORDS SUMMARY | 2024-12-06 14:03 | XMS_ITS | Encounter Summary ---
Author Organization [facility] Healthcare Address [address] [place] [address] Care Team Providers Care Telecom Analyst Name Role Phone Parish Valdez MD Primary Care Provider [phone] Encounter Details Date Type Department Care Team (Late st Contact Info) Description 12/06/2024 Orders Only [facility] Cardiology [address] [place] [address] Veronika Kim NP [address] [place] [address] Social History Tobacco Use Types [...] on filedocumented in this encounter Care Teams Telecom Analyst Relationship Specialty [place] [address] [place], [place] [id number] PCP - General Internal Medicine 01/01/24 documented as of this encounter
--- OUTSIDE RECORDS SUMMARY | 2024-12-06 14:03 | XMS_ITS | Clinical Summary ---
Author Organization [facility] 68[address] [facility] 162 Address [address] [place] [address] Care Team Providers Care Yarn Tester Name Role Phone Parish Valdez MD Primary Care Provider [phone] Allergies Active Allergy Reactions Criticality Noted Date [...] Department Care Team Description 12/06/2024 Orders Only [facility] Cardiology [address] [place] [address] Veronika Kim NP 11/30/2024 Orders Only [facility] Cardiology [address] [place] [address] [place] [phone] Angelica Lozada MD 11/29/2024 Results Follow-Up [facility] Cardiology [address] [place] [address] [place] [phone] Felisa Bolivar RN 24 HR Holter Monitor 11/26/2024 Orders Only [facility] Health Information Management [address] [place] [address] Cooper Mathias MD 11/24/2024 2:45 PM CDT Ancillary Procedure [facility] Cardiology [address] [place] [address] [place] [phone] Palpitations 11/23/2024 Orders Only [facility] Health Information Management [address] [place] [address] Angelica Lozada MD from Last 3 Months [...] phy Narrative 11/29/2024 7:30 AM CDT AMBULATORY DOCK SUPERVISOR REPORT Patient Name: Minnie Anguiano Date of : 1960 Requesting Physician: ANNITA Date of interpretation: 11/29/24 Type of monitor : 24 hour Holter monitor Date of the study/Enrollment period: 11/24/2024 Indication: Palpitations Quality of the study: Favorable, some rhythm strips with significant motion artifact Interpretation: Basic cardiac rhythm is sinus with normal MD, QRS and QT interval. The heart rate [...] was used to complete this document, therefore, political science faculty member variances may occur. Parish Downing MD [facility] 11/29/24 Procedure Note Parish Downing MD - 11/29/2024 AMBULATORY DOCK SUPERVISOR REPORT Patient Name: Minnie Anguiano Date of : 1960 Requesting Physician: ANNITA Date of interpretation: 11/29/24 Type of monitor : 24 hour Holter monitor Date of the study/Enrollment period: 11/24/2024 Indication: Palpitations Quality of the study: Favorable, some rhythm strips with significantmotion artifact Interpretation: Basic cardiac rhythm is sinus with normal MD, QRS and QTinterval. The heart rate varied [...] software was used to complete this document, therefore,political science faculty member variances may occur. Parish Downing MD [facility] 11/29/24 Result [facility] us Dylan Rosa MD CV CARDIAC SERVICES PROCEDURES F inal Result * Cardiology Document Scan (11/24/2024 12:49 PM CDT) Anatomical Region Laterality Modality Other Result Jacky Rosa MD CV CARDIAC SERVICES PROCEDURES F inal Result * Cardiology Document Scan (11/23/2024 1:23 PM CDT) Anatomical Region Laterality Modality Other Result [facility] us Angelica Lozada MD CV CARDIAC SERVICES PROCEDU RES Final Result * Cardiology Document Scan (11/23/2024 12:43 PM CDT) Anatomical Region Laterality Modality Other us Angelica Lozada MD CV CARDIAC SERVICES PROCEDU RES Final Result * Cardiology Document Scan (11/23/2024) Anatomical Region Laterality Modality Other us Angelica Lozada MD CV CARDIAC SERVICES PROCEDU RES Final Result from Last 3 Months Insurance [facility] Care Teams Yarn Tester Relationship Specialty Start Date End Date Parish Valdez MD [address] [place], [place] [phone] PCP - General Internal Medicine 01/01/24
--- OUTSIDE RECORDS SUMMARY | 2024-12-06 14:03 | XMS_ITS | Referral Summary ---
Author Organization [facility] [address] [address] [place] [address] Care Team Providers Care Evp Managing Director Name Role Phone Parish Valdez MD Primary Care Provider [phone] Encounters Date Type Department Care Team Description 12/06/2024 Orders Only [facility] Cardiology [address] [place] [address] [address] [place] [phone] Veronika Kim NP 11/30/2024 Orders Only [facility] Cardiology [address] [place] [address] [place] [phone] Angelica Lozada MD 11/29/2024 Results Follow-Up [facility] Cardiology [address] [place] [address] [place] [phone] Felisa Bolivar, JESSICA 24 HR Holter Monitor 11/26/2024 Orders Only [facility] Health Information Management [address] [place] [address] Cooper Mathias MD 11/24/2024 2:45 PM CDT Ancillary Procedure [facility] Medical [facility] Cardiology [address] [place] [address] [place] [phone] Palpitations 11/23/2024 Orders Only [facility] Health Information Management [address] [place] [address] Angelica Lozada MD from Last 3 Months [...] phy Narrative 11/29/2024 7:30 AM CDT AMBULATORY HANDBAG OPERATOR REPORT Patient Name: Minnie Anguiano Date of : 1960 Requesting Physician: ANNITA Date of interpretation: 11/29/24 Type of monitor : 24 hour Holter monitor Date of the study/Enrollment period: 11/24/2024 Indication: Palpitations Quality of the study: Favorable, some rhythm strips with significant motion artifact Interpretation: Basic cardiac rhythm is sinus with normal [place], QRS and QT interval. The heart rate [...] was used to complete this document, therefore, department clerk variances may occur. Parish Downing MD [facility] 11/29/24 Procedure Note Parish Downing MD - 11/29/2024 AMBULATORY HANDBAG OPERATOR REPORT Patient Name: Minnie Anguiano Date of : 1960 Requesting Physician: ANNITA Date of interpretation: 11/29/24 Type of monitor : 24 hour Holter monitor Date of the study/Enrollment period: 11/24/2024 Indication: Palpitations Quality of the study: Favorable, some rhythm strips with significantmotion artifact Interpretation: Basic cardiac rhythm is sinus with normal [place], QRS and QTinterval. The heart rate varied [...] software was used to complete this document, therefore,department clerk variances may occur. Parish Downing MD [facility] 11/29/24 Result Jacky Rosa MD CV CARDIAC [...] Final Result from Last 3 Months Insurance [facility] Care Teams Evp Managing Director Relationship Specialty Start Date End Date Parish Valdez MD [address] [place] [address] PCP - General Internal Medicine 01/01/24
--- OUTSIDE RECORDS SUMMARY | 2024-12-06 14:03 | XMS_ITS | Clinical Summary ---
Author Organization [facility] Address [address] [place] [address] Care Team Providers Care Border Inspector Name Role Phone Ethan Cerrato Primary Care Provider + Source Comments [facility],non-owned Affiliates and Associated Physician Practices is amultiple site organization consisting of ambulatory clinics and hospital sitesin [place], [place], [place] and [place]. This disclosure is being madepursuant to the Care Everywhere program and may not contain all information available regarding this patient. Last updated 18.[facility] Allergies No known active allergies Medications * [...] on file Legal Sex Female 8:53 AM FAMILY SERVICES ASSISTANT Gender Identity Not on file Sexual Orientation Not on file Last Filed Vital Signs Vital Sign Reading Time Taken Comments Blood Pressure 122/80 07/25/2017 10:47 AM FAMILY SERVICES ASSISTANT Pulse 80 07/25/2017 10:47 AM FAMILY SERVICES ASSISTANT Temperature 36.8 C (98.2 F) 07/25/2017 10:47 AM FAMILY SERVICES ASSISTANT Respiratory Rate 20 07/25/2017 10:47 AM FAMILY SERVICES ASSISTANT Oxygen Saturation 94% 07/25/2017 10:47 AM FAMILY SERVICES ASSISTANT Inhaled Oxygen Concentration - - Weight 74.8 kg (165 lb) 07/25/2017 10:47 AM FAMILY SERVICES ASSISTANT Height 160 cm (5' 3) 07/25/2017 10:47 AM FAMILY SERVICES ASSISTANT Body Mass Index 29.23 07/25/2017 10:47 AM FAMILY SERVICES ASSISTANT Plan of Treatment Health Maintenance Due Date [...] patient's age to complete this topic Insurance [facility] Care Teams Border Inspector Relationship Specialty Start Date End Date Ethan Cerrato PA [address] [place] [address] PCP - General Physician Exhibit Builder 07/25/17
--- OUTSIDE RECORDS SUMMARY | 2024-12-06 14:03 | XMS_ITS | CONTINUITY OF CARE DOCUMENT ---
Author Name alvaro john Address Unknown Organization [facility] Address [address] [place] [address] [address] [place] [address] Phone [phone] Care Team Providers Care Party Chief Name Role Phone MARGARET GABRIEL MD Unavailable MARGARET GABRIEL MD Unavailable INSURANCE PROVIDERS Payer name Policy type / Coverage type Swathi red green party ID [employer] Medicaid 1 [id number]
--- OUTSIDE RECORDS SUMMARY | 2024-12-06 14:03 | XMS_ITS | Encounter Summary ---
Author Organization [facility] Healthcare Address [address] [place] [address] Care Team Providers Care Bsa/Aml Compliance Officer Name Role Phone Parish Valdez MD Primary Care Provider [phone] Encounter Details Date Type Department Care Team (Late st Contact Info) Description 11/29/2024 Results Follow-Up [facility] Cardiology [address] [place] [address] Felisa Bolivar, RN 24 HR [...] on filedocumented in this encounter Care Teams Bsa/Aml Compliance Officer Relationship Specialty Start Date End Date Parish Valdez MD [address] [place] [address] PCP - General Internal Medicine 01/01/24 documented as of this encounter
[2024-12-06] MEDS: dilTIAZem HCl INJ 25 MG/5 ML VIAL 10 MG IV PUSH (15:12)
--- NOTE | 2024-12-06 16:05 | PC.NURSE ---
with ambulation to the bathroom and back to patients room patient ended up with increasing dyspnea and anxiety.
[2024-12-06] MEDS: methylPREDNISolone SOD SUCC 125 MG VIAL IV PUSH (17:09)
--- NOTE | 2024-12-06 19:49 | PC.NURSE ---
Patient states that any time she has been in the hospital she has been able to take the stairs up to the inpatient rooms. patient gets markedly short of breath with ambulation to the bathroom and it's been discussed with her that she is not physically at the point where she can ambulate up the stairs and that she is requiring oxygen still. patient refused to be taken to her inpatient room by commercial technician at this time. continuing to provide education with the patient
--- NOTE | 2024-12-06 20:18 | PC.NURSE ---
patient insistent on walking up the stairs to inpatient room. offered ativan for transport. patient thinking about it
[2024-12-06] MEDS: LEVALBUTEROL NEB 1.25 MG/3 ML 0.63 MG INHALATION (21:01)
[2024-12-06] MEDS: LORazepam INJ (*CRX) 2 MG/ML VIAL 1 MG IV PUSH (21:03)
--- NOTE | 2024-12-06 21:11 | PC.NURSE ---
patient given ativan and became agreeable to go in the elevator to her inpatient room at this time
--- NOTE | 2024-12-06 21:20 | ADMGEN ---
This patient, Minnie Anguiano, was admitted to [facility] Surg Room 319-01 at 21:21. Patient/family oriented to hospital policies and general routines including ID bracelet, bed and alarms, visiting hours, pain management, procedures, bathroom and other care routines, personal items, smoking policy, room service/diet, and visiting hours. Information on how to activate the Rapid Response Team has been discussed. Patient/Family are encouraged to report perceived risks to care and to ask questions if they do not understand what they are told or what they should do.
[2024-12-06] MEDS: methylPREDNISolone SOD SUCC 125 MG VIAL 60 MG IV PUSH (23:04)
[2024-12-06] MEDS: SODIUM CHLORIDE 0.9% IV 1,000 ML 150 ML IV CONT (23:42)
[2024-12-07] VITALS (8 sets, daily range): BP systolic 128; BP diastolic 61; PULSE 87–114; RESP 18–20; TEMP 36.3; O2SAT 98
[2024-12-07] MEDS: LEVALBUTEROL NEB 1.25 MG/3 ML 0.63 MG INHALATION ×2 (03:22→08:55)
[2024-12-07 03:54] LABS: Add Urine Microscopic? NO; Appearance Urine Clear (Clear); Bilirubin Urine Negative (Negative); Blood Urine Negative (Negative); Color Urine Yellow (Yellow); Glucose Urine UA Trace mg/dL (Negative); Ketones Urine Negative (Negative); Leukocyte Esterase Ur Negative LEU/UL (Negative); Nitrate Urine Negative (Negative); Protein Urine Negative (Negative); Specific Grav Ur 1.007 (1.001-1.035)
[2024-12-07] MEDS: busPIRone HCL 10 MG TABLET PO (05:44)
[2024-12-07] MEDS: methylPREDNISolone SOD SUCC 125 MG VIAL 60 MG IV PUSH (05:44)
[2024-12-07] MEDS: SODIUM CHLORIDE 0.9% IV 1,000 ML 150 ML IV CONT (05:49)
[2024-12-07 06:55] LABS: Hematocrit 45.1 % (37.0-47.0); Hemoglobin 14.8 g/dL (12.0-15.0); Mean Corpuscular HGB Conc 32.8 g/dl (32-36); Mean Corpuscular Hemoglobin 32.4 pg (26-34); Mean Corpuscular Volume 98.7 fl (80-100); Mean Platelet Volume 10.5 fl (7.4-10.4); Platelet Count Result 232 k/mm3 (150-375); Red Blood Count 4.57 M/mm3 (4.2-5.4); Red Cell Distribution Width 13.1 % (11.5-14.5); White Blood Count 5.6 K/mm3 (4.5-10.0)
[2024-12-07 07:03] LABS: Anion Gap 8 mmol/L (4-12); Blood Urea Nitrogen 11 mg/dL (7-17); Calcium 9.5 mg/dL (8.4-10.2); Carbon Dioxide 27 mmol/L (22-30); Chloride 105 mmol/L (98-107); Estimated CRCL calculation 57 ml/min; Estimated Glomerular Filt Rate 59; Glucose 157 mg/dL (65-110); Potassium 5.3 mmol/L (3.4-5.0); Sodium 140 mmol/L (137-145)
--- NOTE | 2024-12-07 07:48 | P.HP_ITS ---
H&P: HPI History of Present Illness Date/Time: 12/07/24 07:48 Chief Complaint: Presented with elevated Heart rate PMFSH Past Medical History Medical History Tobacco abuse Chronic obstructive pulmonary disease Coronary artery disease (10/2023) Nuclear stress test showed a large, severe non reversible infarcts including multiple meyers of the apex and mid anterior and mid posterior segments consistent with infarct with no reversible ischemia. Surgical History Surgical History History of section Family History Family History Mother Cerebrovascular accident Sibling FH: CABG (coronary artery bypass surgery) Father Stented coronary artery Social History Social History Social History: Surrogate medical decision maker: Meghan Babcock, daughter. Code status: Full code. Smoking packs per day: 0.25 Smoking cigarettes per day: 5.0 Years smoked: 40 Smoking pack-years: 10.00 Smoking status: Current every day smoker Tobacco type: cigarettes Second hand tobacco smoke exposure: Yes Alcohol intake: former Drinks per week: 28 Substance use: never Substance use type: does not use Last use: 10/11/24 Do You Feel Safe in your Home?: Yes Lack of Transportation: No Lack of Food: Never True Current Housing: I Have Housing Concerned About Future Housing: No Difficulty Paying Gas/Electric Bills: No Difficulty Paying for Meds: No Currently Unemployed: No Education: High School Diploma/GED Difficulty w/ Childcare or Family Care: No Living arrangements: with family Spiritual care concerns: No Meds Home Medications and Allergies Home Medications ?Medication ?Instructions ?Recorded ?Confirmed ?Type umeclidinium 62.5 mcg/actuation 1 inh inhalation DAILY 10/26/23 12/06/24 History blister powder for inhalation (Incruse Ellipta) nitroglycerin 0.4 mg sublingual 0.4 mg sublingual Q5MIN PRN Chest 10/28/23 12/06/24 Rx tablet (Nitrostat) Pain #10 tabs aspirin 81 mg chewable tablet 81 mg PO DAILY@0800 #30 tabs 11/24/24 12/06/24 Rx (Children's Aspirin) nicotine 21 mg/24 hr daily 1 patch transdermal DAILY #14 ea 11/24/24 12/06/24 Rx transdermal patch (Nicoderm CQ) rosuvastatin 20 mg tablet 20 mg PO EVENING #30 tabs 11/24/24 12/06/24 Rx buspirone 10 mg tablet 10 mg PO Q8H #90 tabs 11/29/24 12/06/24 Rx diltiazem HCl 180 mg 180 mg PO DAILY #30 caps 11/29/24 12/06/24 Rx capsule,extended release 24 hr (Cartia XT) levalbuterol HCl 1.25 mg/3 mL 1.25 mg (3 mL) inhalation Q4H PRN 11/29/24 12/06/24 Rx solution for nebulization shortness of breath or wheezing #72 mL fluticasone propionate 115 2 puff inhalation Q12H 12/06/24 12/06/24 History mcg-salmeterol 21 mcg/actuation HFA inhaler Allergies Allergy/AdvReac Type Severity Reaction Status Date / Time codeine AdvReac Itching Verified 11/23/24 10:50 Vital Signs Vital Signs - 24 hr 12/06/24 11:31 12/06/24 11:42 12/06/24 13:38 Temperature 97.6 F Pulse Rate 123 H 109 H Respiratory Rate 24 H 24 H Blood Pressure 152/78 H 138/79 Pulse Oximetry 92 95 92 Oxygen Delivery Room Air Room Air Oxygen Flow Rate 12/06/24 13:40 12/06/24 13:51 12/06/24 16:08 Temperature Pulse Rate 108 H 110 H 108 H Respiratory Rate 20 20 18 Blood Pressure Pulse Oximetry 93 Oxygen Delivery Oxygen Flow Rate 12/06/24 19:40 12/06/24 21:00 12/06/24 21:01 Temperature Pulse Rate 102 H 111 H Respiratory Rate 18 21 H Blood Pressure 125/75 Pulse Oximetry 93 92 Oxygen Delivery Nasal Cannula Oxygen Flow Rate 2 12/06/24 21:01 12/06/24 21:10 12/06/24 21:29 Temperature 97 F L Pulse Rate 107 H 118 H Respiratory Rate 20 22 H Blood Pressure 131/68 Pulse Oximetry 92 91 Oxygen Delivery Nasal Cannula Oxygen Flow Rate 2 12/07/24 00:00 12/07/24 03:24 12/07/24 03:35 Temperature Pulse Rate 87 89 95 Respiratory Rate 20 Blood Pressure Pulse Oximetry Oxygen Delivery Oxygen Flow Rate 12/07/24 06:00 Temperature 97.3 F L Pulse Rate 98 Respiratory Rate 20 Blood Pressure 128/61 Pulse Oximetry 98 Oxygen Delivery Oxygen Flow Rate H&P: Results Labs Labs: Short CBC 12/06/24 12/07/24 Range/Units 12:19 06:34 WBC 8.2 5.6 (4.5-10.0) K/mm3 Hgb 16.0 H 14.8 (12.0-15.0) g/dL Hct 47.8 H 45.1 (37.0-47.0) % Plt Count 267 232 (150-375) k/mm3 BMP 12/06/24 12/07/24 12:19 06:34 Sodium 139 140 Potassium 4.1 5.3 H Chloride 103 105 Carbon Dioxide 27 27 BUN 11 11 Creatinine 0.93 0.95 Glucose 107 157 H Calcium 9.7 9.5 Liver Function 12/06/24 Range/Units 12:19 Total Bilirubin 0.9 (0.2-1.3) mg/dL AST 35 (14-36) U/L ALT 32 (6-35) U/L Alkaline Phosphatase 59 (38-126) U/L Albumin 4.7 (3.5-5.1) g/dL Urine 12/07/24 Range/Units 03:40 Urine Color Yellow (Yellow) Urine Appearance Clear (Clear) Urine pH 6.0 (5.0-9.0) Ur Specific [place] 1.007 (1.001-1.035) Urine Protein Negative (Negative) mg/dL Urine Glucose (UA) Trace H (Negative) mg/dL
[2024-12-07] MEDS: ASPIRIN 81 MG CHEWABLE TABLET PO (08:40)
[2024-12-07] MEDS: dilTIAZem HCL CD 180 MG CAP.24HR PO (08:41)
[2024-12-07] MEDS: NICOTINE (*PBKC) 21 MG PATCH 1 PATCH TRANSDERM (08:45)
[2024-12-07] MEDS: ENOXAPARIN 40 MG/0.4 ML SYRINGE SUB-Q (08:45)
[2024-12-07] MEDS: FLUTICASONE/SALMETEROL 115-21 MCG INHALER 1 PUFF 2 PUFF INHALATION (08:54)
[2024-12-07] MEDS: UMECLIDINIUM BROMIDE 62.5 MCG ELLIPTA 1 PUFF INHALATION (08:55)
--- NOTE | 2024-12-07 11:19 | PM.SD2 ---
Same Day Admit/Disch: HPI History of Present Illness Chief complaint: tachycardia,copd exacerbation,hypoxia Narrative: Minnie Anguiano is a 64 year old female with a past medical history of COPD and tobacco abuse, CAD anxiety, CHF multiple hospitalizations who presented to the ED with complaints of shortness of breath with elevated heart rate. Patient states that she normally gets his elevated heart rate and this shortness of breath mostly at nighttime. She did state that she has been really weaning herself off the cigarettes however stated 9 she is really anxious. She stated last night she had improve the bathroom and heart rate went up to the 130s to 140s and she was just having a really hard time breathing however she did state that she was becoming very panicked. She also states that she had a some chest tightness along with just feeling sick to her stomach. She does relate that most the time she does get this high heart rate and shortness a breath mostly lay which she states is most likely related to anxiety. Spoke to her about her current lifestyle and encouraged her to do lifestyle changes including completely wean down off the cigarettes along with no smoking after 5:00 p.m.. Currently she is sitting up and then she did state that she is feeling better she states that she does feel a lot better than she did even 4 weeks ago. She denies any chest pain, shortness a breath, nausea, vomiting, diarrhea constipation. She does have a follow-up appointment Dr. Ragsdale'lilo which she will see in 3 weeks. In the ED heart rate was noted to be around 100-120. Patient was initiated on steroids along with neb treatments. Cardizem in the ED was given 1 time dose of 10 mg IV. She also got hours she 1 bag of lactated Ringer's. surveillance system monitor has obtained and no ectopy no as. Patient does have tachycardia especially with activity. Chest x-ray with no focal infiltrates or opacities noted. [facility] Past Medical History Medical History Tobacco abuse Chronic obstructive pulmonary disease Coronary artery disease (10/2023) Nuclear stress test showed a large, severe non reversible infarcts including multiple meyers of the apex and mid anterior and mid posterior segments consistent with infarct with no reversible ischemia. Surgical History Surgical History History of section Family History Family History Mother Cerebrovascular accident Sibling FH: CABG (coronary artery bypass surgery) Father Stented coronary artery Social History Social History Social History: Surrogate medical decision maker: Meghan Babcock, daughter. Code status: Full code. Smoking packs per day: 0.25 Smoking cigarettes per day: 5.0 Years smoked: 40 Smoking pack-years: 10.00 Smoking status: Current every day smoker Tobacco type: cigarettes Second hand tobacco smoke exposure: Yes Alcohol intake: former Drinks per week: 28 Substance use: never Substance use type: does not use Last use: 10/11/24 Do You Feel Safe in your Home?: Yes Lack of Transportation: No Lack of Food: Never True Current Housing: I Have Housing Concerned About Future Housing: No Difficulty Paying Gas/Electric Bills: No Difficulty Paying for Meds: No Currently Unemployed: No Education: High School Diploma/GED Difficulty w/ Childcare or Family Care: No Living arrangements: with family Spiritual care concerns: No Same Day Admit/Disch: Med Pre-admit Medications Home Medications ?Medication ?Instructions ?Recorded ?Confirmed ?Type umeclidinium 62.5 mcg/actuation 1 inh inhalation DAILY 10/26/23 12/06/24 History blister powder for inhalation (Incruse Ellipta) nitroglycerin 0.4 mg sublingual 0.4 mg sublingual Q5MIN PRN Chest 10/28/23 12/06/24 Rx tablet (Nitrostat) Pain #10 tabs aspirin 81 mg chewable tablet 81 mg PO DAILY@0800 #30 tabs 11/24/24 12/06/24 Rx (Children's Aspirin) nicotine 21 mg/24 hr daily 1 patch transdermal DAILY #14 ea 11/24/24 12/06/24 Rx transdermal patch (Nicoderm CQ) rosuvastatin 20 mg tablet 20 mg PO EVENING #30 tabs 11/24/24 12/06/24 Rx buspirone 10 mg tablet 10 mg PO Q8H #90 tabs 11/29/24 12/06/24 Rx diltiazem HCl 180 mg 180 mg PO DAILY #30 caps 11/29/24 12/06/24 Rx capsule,extended release 24 hr (Cartia XT) levalbuterol HCl 1.25 mg/3 mL 1.25 mg (3 mL) inhalation Q4H PRN 11/29/24 12/06/24 Rx solution for nebulization shortness of breath or wheezing #72 mL fluticasone propionate 115 2 puff inhalation Q12H 12/06/24 12/06/24 History mcg-salmeterol 21 mcg/actuation HFA inhaler Review of Systems Review of Systems All systems reviewed & are unremarkable except as noted in HPI and below Exam Narrative: General: well-nourished, well-appearing 64-year-old female, sitting up in bed, comfortable, NARD Neuro: awake, alert and oriented x4, speech clear, no focal neuro deficits noted HEENMT: normocephalic, atraumatic, EOMI, sclerae anicteric, moist oral mucosa Respiratory: Clear to auscultation bilaterally without crackles, rhonchi or wheezes, nonlabored breathing Cardio: regular rate, regular rhythm with S1-S2 Abdomen: nondistended, normoactive bowel sounds, soft, nontender to palpation Extremities: no edema, erythema, or tenderness to palpation, DP pulses 2+ bilaterally Skin: no rashes or lesions, warm and dry Psych: appropriate mood and affect, judgment and insight intact DS: Data Data Completed and Pending Labs on day of discharge: Labs from last 24 hours 12/07/24 12/07/24 12/06/24 06:34 03:40 12:19 WBC 5.6 8.2 RBC 4.57 4.93 Hgb 14.8 16.0 H Hct 45.1 47.8 H MCV 98.7 97.0 MCH 32.4 32.5 MCHC 32.8 33.5 RDW 13.1 13.2 Plt Count 232 267 MPV 10.5 H 10.1 Immature Gran % (Auto) 0.4 Neut % (Auto) 63.3 Lymph % (Auto) 22.6 [place] % (Auto) 7.7 Eos % (Auto) 5.1 H Baso % (Auto) 0.9 Lymph # (Auto) 1.86 [place] # (Auto) 0.6 Eos # (Auto) 0.4 H Baso # (Auto) 0.1 Abs Immat Gran (auto) 0.03 Absolute Neuts (auto) 5.2 Absolute Nucleated RBC 0.000 Nucleated RBC % 0.0 Sodium 140 139 Potassium 5.3 H 4.1 Chloride 105 103 Carbon Dioxide 27 27 Anion Gap 8 9 BUN 11 11 Creatinine 0.95 0.93 Estim Creat Clear Calc 57 57 Estimated GFR 59 > 60 Glucose 157 H 107 Calcium 9.5 9.7 Total Bilirubin 0.9 AST 35 ALT 32 Alkaline Phosphatase 59 Total Protein 8.0 Albumin 4.7 Urine Color Yellow Urine Appearance Clear Urine pH 6.0 Ur Specific Maria Stein 1.007 Urine Protein Negative Urine Glucose (UA) Trace H Urine Ketones Negative Ur Blood (Man) Negative Urine Nitrate Negative Urine Bilirubin Negative Urine Urobilinogen 1.0 Leukocyte Esterase Rfl Negative DS: Summary Hospital Course Hospital Course: Spoke to the patient about treatment plan. Did inform her that she does need to quit smoking cigarettes after 5:00 p.m.. Also talked to her about placing her on a longer taper of steroids to help her breathing as well. Appointment has been made Veronika Kim for a follow-up with Cardiology. Will send patient home on a steroid taper. Also within the patient was Atarax to help with her anxiety. Spoke to her and also reiterated that the and that she cannot smoke after 5:00 p.m.. Patient did verbalize understanding. Currently she feels okay and she denies any chest pain, shortness a breath, nausea, vomiting, diarrhea or constipation. She does have some work of breathing with activity however she states that is how it has been for the last 4 weeks. Patient does have a follow-up appoint with Dr. Cao and will continue with that plan as well. Status at Discharge Functional status at discharge: independent ambulation Overall status at discharge: patient is progressing back to baseline Time Spent with Patient Time attestation: Total time spent providing and/or coordinating discharge services: 48 minutes Time spent: Greater than 30 minutes Specific discharge activities: Diagnostic testing, chart review, developing a treatment plan, education, care coordination documentation, physical exam, result review DS: Admitting Diagnosis Discharge Date 12/07/2024 Admitting Diagnosis Uncontrolled tachycardia DS: Discharge Diagnosis Discharge Diagnosis (1) Anxiety: Code(s): F41.9 - Anxiety disorder, unspecified Status: Acute (2) Tachycardia: Code(s): R00.0 - Tachycardia, unspecified Status: Acute (3) SVT (supraventricular tachycardia): Code(s): I47.10 - Supraventricular tachycardia, unspecified Status: Acute (4) Chronic obstructive pulmonary disease: Code(s): J44.9 - Chronic obstructive pulmonary disease, unspecified Status: Acute (5) Tobacco abuse: Code(s): Z72.0 - Tobacco use Status: Acute Discharge Plan Discharge Attending physician on discharge: Liliane Aguirre Discharging Clinician: Ehsan Romero Patient Disposition: Home Activity: may shower, unlimited and as tolerated Diet: heart healthy Discharge Instructions: Take medications as prescribed Maintain a cardiac diet, 2 g sodium, do not over hydrate Remain active Monitor urine output Daily weights, if you gain more than 3 lb within 1 day or 5 lb in 1 week notify your primary care provider No smoking after 5:00 p.m. use gum or patch to deter cravings Your being prescribed Atarax for anxiety take 3 times a day as needed If you develop chest pain, shortness breath, fever greater than 101, nausea, or vomiting notify a clinician or come to the emergency department Follow-up with Pulmonary as instructed Follow-up with [facility] Fajardo is scheduled Follow-up with primary care provider within 1 weeks Thank you for [facility] for your healthcare needs Patient Instructions: Antibiotic Form Patient Language: Lao Stand Alone Forms: General Discharge Information Follow-up/Referrals: José Miguel,MD [facility] [Primary Care Provider] - 1 Week Veronika Kim APN-C [Advanced Practice Nurse] - Keep Reg. Scheduled Appt. [facility] Ragsdale MD [Physician] - Keep Reg. Scheduled Appt. Discharge Medications: New hydroxyzine pamoate 25 mg capsule 25 mg PO TID PRN (Reason: anxiety) Qty: 90 0RF prednisone 10 mg tablet 10 mg PO DAILY Qty: 30 0RF Rx Instructions: Take 40mg daily for 3 days Take 30mg Daily for 3 days Take 20mg Daily for 3 days Take 10mg Daily For 3 days nicotine (polacrilex) [Nicorette] 4 mg gum 4 mg buccal Q2H Qty: 50 0RF Continued Incruse Ellipta 62.5 mcg/actuation blister with device 1 inh INHALATION DAILY nitroglycerin [Nitrostat] 0.4 mg Tablet, Sublingual 0.4 mg sublingual Q5MIN PRN (Reason: Chest Pain) Qty: 10 0RF Patient Comments: has not had to admin nicotine [Nicoderm CQ] 21 mg/24 hr Patch 24 Hour 1 patch transdermal DAILY Qty: 14 0RF aspirin [Children's Aspirin] 81 mg Tablet,Chewable 81 mg PO DAILY@0800 Qty: 30 0RF rosuvastatin 20 mg Tablet 20 mg PO EVENING Qty: 30 0RF levalbuterol HCl 1.25 mg/3 mL solution for nebulization 1.25 mg inhalation Q4H PRN (Reason: shortness of breath or wheezing) Qty: 72 0RF buspirone 10 mg Tablet 10 mg PO Q8H Qty: 90 0RF diltiazem HCl [Cartia XT] 180 mg capsule,extended release 24hr 180 mg PO DAILY Qty: 30 0RF fluticasone propion-salmeterol 115-21 mcg/actuation HFA aerosol inhaler 2 puff INHALATION Q12H Date of admission: 12/07/24 08:00 Primary Care Provider: José MiguelParish Admitting Provider: Liliane Aguirre Attending physician on admission: Liliane Augirre Condition: Serious Hospitalist MIPS Advance Care Plan I have confirmed that the patient's Advanced Care Plan is present, code status is documented, or surrogate decision maker is listed in patient medical record.: Yes
== END 2024-12-07 13:35 | disposition home or self-care (01) ==
LOC: ANHED 17:19 → ANH3MEDSUR 18:45
PROVIDERS: Emergency Medicine; Internal Medicine; Admitting Provider Internal Medicine; Emergency Provider Emergency Medicine; PCP Internal Medicine; Visit Provider Internal Medicine
DX: F41.9 Anxiety disorder, unspecified (principal); I47.10 Supraventricular tachycardia, unspecified; J44.1 Chronic obstructive pulmonary disease with (acute) exacerbation; F17.210 Nicotine dependence, cigarettes, uncomplicated; R09.02 Hypoxemia; I25.10 Atherosclerotic heart disease of native coronary artery without angina pectoris; I50.9 Heart failure, unspecified
CPT/HCPCS: 36415; 71046; 80048; 80053; 81003; 85025; 85027; 93005; 94640; 96374; 96375; 96376; 99285; A9270; J1650; J2060; J2919; J7030; J7120

== ENCOUNTER 2025-01-08 07:00 | Emergency (ER) | payer OTHER, SELFPAY ==
[2025-01-08] VITALS (8 sets, daily range): BP systolic 101–163; BP diastolic 51–104; PULSE 90–102; RESP 15–24; TEMP 36.6–36.7; O2SAT 92–100
--- NOTE | ~2025-01-08 | XR_ITS ---
Portable chest x-ray Comparison: 12/06/2024 Clinical History: Dyspnea Findings: Lungs are clear, without focal consolidation or pleural effusion. Possible COPD. Cardiome diastinal silhouette is stable. Bones and soft tissues are unremarkable. Impression: Clear lungs. Possible COPD. Reviewed, dictated and finalized at [facility]. Impression: Clear lungs. Possible COPD.
--- NOTE | 2025-01-08 07:45 | ECG_ITS ---
Test Date: 2025-01-08 07:53:15 Measurements Intervals [place] Rate: 89 P: 77 [place]: 160 QRS: 66 QRSD: 73 T: 72 QT: 333 QTc: 407 Interpretive Statements SINUS RHYTHM NONSPECIFIC T-WAVE ABNORMALITY- ANT/HIGH LAT LEADS BASELINE ARTIFACT- I, II, AVR, AVL, V1, V3, V6 BORDERLINE ECG Compared to ECG 12/06/2024 11:38:47 HEART RATE HAS DECREASED Electronically Signed On 01-08-2025 07:54:50 CDT by Amrit Toussaint D.O.
--- NOTE | 2025-01-08 08:54 | ED.GENADULT ---
HPI - General Adult General Chief complaint: Shortness of Breath/Dyspnea Stated complaint: DIFF BREATH, HX COPD ASTHMA Time Seen by Provider: 01/08/25 07:47 History of Present Illness HPI narrative: This is a 64-year-old female history of COPD on oxygen at night, anxiety presenting difficulty breathing. Patient said she developed her typical COPD exacerbation starting yesterday. Has not responded to her nebulizers at home. He then came to the hospital evaluation. She has not had any fevers or chest pain. No URI symptoms. No increased sputum production. No other complaints. Related Data Home Medications ?Medication ?Instructions ?Recorded ?Confirmed ?Last Taken ?Type umeclidinium 62.5 mcg/actuation 1 inh inhalation DAILY 10/26/23 12/06/24 12/06/24 History blister powder for inhalation (Incruse Ellipta) fluticasone propionate 115 2 puff inhalation Q12H 12/06/24 12/06/24 12/05/24 History mcg-salmeterol 21 mcg/actuation HFA inhaler Allergies Allergy/AdvReac Type Severity Reaction Status Date / Time codeine AdvReac Itching Verified 01/08/25 09:07 [facility] Past Medical History Medical History Tobacco abuse Chronic obstructive pulmonary disease Coronary artery disease (10/2023) Nuclear stress test showed a large, severe non reversible infarcts including multiple meyers of the apex and mid anterior and mid posterior segments consistent with infarct with no reversible ischemia. Surgical History Surgical History History of section Family History Family History Mother Cerebrovascular accident Sibling FH: CABG (coronary artery bypass surgery) Father Stented coronary artery Social History Social History Social History: Surrogate medical decision maker: Meghan Babcock, daughter. Code status: Full code. Smoking packs per day: 0.25 Smoking cigarettes per day: 5.0 Years smoked: 40 Smoking pack-years: 10.00 Smoking status: Current some day smoker Tobacco type: cigarettes Second hand tobacco smoke exposure: Yes Alcohol intake: former Drinks per week: 28 Substance use: never Substance use type: does not use Last use: 10/11/24 Do You Feel Safe in your Home?: Yes Lack of Transportation: No Lack of Food: Never True Current Housing: I Have Housing Concerned About Future Housing: No Difficulty Paying Gas/Electric Bills: No Difficulty Paying for Meds: No Currently Unemployed: No Education: High School Diploma/GED Difficulty w/ Childcare or Family Care: No Living arrangements: with family Spiritual care concerns: No Exam Narrative: APPEARANCE: No apparent distress. Head: atraumatic. EYES: EOMI, NOSE: Atraumatic NECK: Trachea midline RESPIRATORY: Full sentences, end-expiratory wheezing, mildly increased work of breathing CARDIOVASCULAR: RRR, ABDOMINAL: Non-distended MUSCULOSKELETAl: No obvious deformities NEURO: Alert. Moving /4 extremities SKIN:: Warm, dry. Normal color PSYCHIATRIC: Normal affect Course Vital Signs Vital signs: Vital Signs Temperature 98.0 F 01/08/25 07:21 Pulse Rate 95 01/08/25 07:21 Respiratory Rate 15 01/08/25 07:21 Blood Pressure 101/51 L 01/08/25 07:21 Pulse Oximetry 96 01/08/25 07:21 Oxygen Delivery Room Air 01/08/25 07:21 Temperature 97.9 F 01/08/25 07:46 Pulse Rate 92 01/08/25 10:04 Respiratory Rate 20 01/08/25 10:04 Blood Pressure 163/104 H 01/08/25 10:04 Pulse Oximetry 98 01/08/25 10:04 Oxygen Delivery Nasal Cannula 01/08/25 07:46 Oxygen Flow Rate 2 01/08/25 07:46 Medical Decision Making [facility] Narrative Medical decision making narrative: -Course: 64-year-old female presenting with difficulty breathing. She has wheezing on exam. Given hour long breathing treatment magnesium and steroids. After treatment patient felt improved. She still has some end-expiratory wheezing that is normal for her. We discussed admission versus discharge the patient says she is essentially back to base line is comfortable going home. Patient will be discharged on short course of steroids and Bactrim. Primary care follow-up. Given return precautions. -DDX includes but is not limited to: COPD, viral syndrome, pneumonia. Vital Signs Vital Signs: Vital Signs Temperature 98.0 F 01/08/25 07:21 Pulse Rate 95 01/08/25 07:21 Respiratory Rate 15 01/08/25 07:21 Blood Pressure 101/51 L 01/08/25 07:21 Pulse Oximetry 96 01/08/25 07:21 Oxygen Delivery Room Air 01/08/25 07:21 Temperature 97.9 F 01/08/25 07:46 Pulse Rate 92 01/08/25 10:04 Respiratory Rate 20 01/08/25 10:04 Blood Pressure 163/104 H 01/08/25 10:04 Pulse Oximetry 98 01/08/25 10:04 Oxygen Delivery Nasal Cannula 01/08/25 07:46 Oxygen Flow Rate 2 01/08/25 07:46 Lab Data 01/08/25 09:12 01/08/25 09:12 Labs: Lab Results 01/08/25 Range/Units 09:12 WBC 8.6 (4.5-10.0) K/mm3 RBC 4.12 L (4.2-5.4) M/mm3 Hgb 12.7 (12.0-15.0) g/dL Hct 40.2 (37.0-47.0) % MCV 97.6 (80-100) fl MCH 30.8 (26-34) pg MCHC 31.6 L (32-36) g/dl RDW 13.6 (11.5-14.5) % Plt Count 281 (150-375) k/mm3 MPV 9.7 (7.4-10.4) fl Immature Gran % (Auto) 0.8 H (0-0.5) % Neut % (Auto) 62.7 (45.5-73.1) % Lymph % (Auto) 21.7 (18.3-44.2) % Granite % (Auto) 8.2 (2.6-8.5) % Eos % (Auto) 5.5 H (0-4.4) % Baso % (Auto) 1.1 (0.2-1.2) % Lymph # (Auto) 1.86 (0.9-3.2) K/mm3 Granite # (Auto) 0.7 H (0.1-0.6) K/mm3 Eos # (Auto) 0.5 H (0-0.3) K/mm3 Baso # (Auto) 0.1 (0.0-0.1) K/mm3 Abs Immat Gran (auto) 0.07 H (0.00-0.031) K/mm3 Absolute Neuts (auto) 5.4 (1.3-6.7) K/mm3 Absolute Nucleated RBC 0.000 (0.0-0.012) K/mm3 Nucleated RBC % 0.0 (0.0-0.2) % Sodium 140 (137-145) mmol/L Potassium 3.4 (3.4-5.0) mmol/L Chloride 103 (98-107) mmol/L Carbon Dioxide 29 (22-30) mmol/L Anion Gap 8 (4-12) mmol/L BUN 12 (7-17) mg/dL Creatinine 0.97 (0.7-1.0) mg/dL Estim Creat Clear Calc 57 ml/min Estimated GFR 58 L (59 - ) Glucose 114 H (65-110) mg/dL Calcium 9.3 (8.4-10.2) mg/dL Magnesium 2.3 (1.6-2.3) mg/dL Total Bilirubin 0.7 (0.2-1.3) mg/dL AST 31 (14-36) U/L ALT 25 (6-35) U/L Alkaline Phosphatase 64 (38-126) U/L Total Protein 7.0 (6.3-8.2) g/dL Albumin 4.2 (3.5-5.1) g/dL Influenza A (RT-PCR) Negative (Negative) Influenza B (RT-PCR) Negative (Negative) RSV (RT-PCR) Negative (Negative) SARS-CoV-2 RNA (RT-PCR) Negative (Negative) ABG Data ABG results: 01/08/25 09:12 VBG pH 7.373 VBG pCO2 55.2 H VBG pO2 35.2 VBG HCO3 31.4 H O2 Delivery Device Nasal cannula O2 Liters/Min 2.0 FiO2 28 Discharge Plan Discharge Clinical Impression: COPD (chronic obstructive pulmonary disease) Patient Disposition: Home Condition: Stable Instructions: Antibiotic Form, COPD (Chronic Obstructive Pulmonary Disease) (DC) Additional Instructions: You were seen in the emergency department for a COPD exacerbation. Please follow-up with your mounter clarinets or primary care physician for further management. Complete a course of Bactrim and prednisone. Continue to take her breathing treatments as instructed. Return if you develop shortness of breath fevers or productive cough Patient Language: Ugandan Prescriptions: New prednisone 50 mg tablet 50 mg PO DAILY Qty: 5 0RF sulfamethoxazole-trimethoprim 800-160 mg tablet 1 tablet PO Q12H Qty: 14 0RF No Action Incruse Ellipta 62.5 mcg/actuation blister with device 1 inh INHALATION DAILY nitroglycerin [Nitrostat] 0.4 mg Tablet, Sublingual 0.4 mg sublingual Q5MIN PRN (Reason: Chest Pain) Qty: 10 0RF Patient Comments: has not had to admin nicotine [Nicoderm CQ] 21 mg/24 hr Patch 24 Hour 1 patch transdermal DAILY Qty: 14 0RF aspirin [Children's Aspirin] 81 mg Tablet,Chewable 81 mg PO DAILY@0800 Qty: 30 0RF rosuvastatin 20 mg Tablet 20 mg PO EVENING Qty: 30 0RF levalbuterol HCl 1.25 mg/3 mL solution for nebulization 1.25 mg inhalation Q4H PRN (Reason: shortness of breath or wheezing) Qty: 72 0RF buspirone 10 mg Tablet 10 mg PO Q8H Qty: 90 0RF diltiazem HCl [Cartia XT] 180 mg capsule,extended release 24hr 180 mg PO DAILY Qty: 30 0RF fluticasone propion-salmeterol 115-21 mcg/actuation HFA aerosol inhaler 2 puff INHALATION Q12H prednisone 10 mg tablet 10 mg PO DAILY Qty: 30 0RF Rx Instructions: Take 40mg daily for 3 days Take 30mg Daily for 3 days Take 20mg Daily for 3 days Take 10mg Daily For 3 days hydroxyzine pamoate 25 mg capsule 25 mg PO TID PRN (Reason: anxiety) Qty: 90 0RF nicotine (polacrilex) [Nicorette] 4 mg gum 4 mg buccal Q2H Qty: 50 0RF Follow-up/Referrals: José Miguel,MD Parish [Primary Care Provider] -
[2025-01-08] MEDS: IPRATROPIUM 0.5 MG/ALBUTEROL SULFATE 2.5 MG AMPUL.NEB 3 ML 12 ML INHALATION (09:08)
[2025-01-08] MEDS: dexAMETHasone SOD PHOS INJ 10 MG/ML 1 ML VIAL IV PUSH (09:08)
[2025-01-08] MEDS: SODIUM CHLORIDE 0.9% IV 1,000 ML 999 ML IV CONT (09:09)
[2025-01-08] MEDS: MAGNESIUM SULF 2 GM/WATER 50ML 2 GM/50 ML BAG IVPB (09:09)
[2025-01-08] MEDS: diazePAM INJ (*CRX) 10 MG/2 ML SYRINGE 5 MG IV PUSH (09:09)
[2025-01-08 09:13] LABS: Fractional Inspired Oxygen 28 %; HCO3 VBG 31.4 mEq/l (24.0-30.0); PCO2 VBG 55.2 mmHg (42.0-48.0); PO2 VBG 35.2 mmHg (35.0-45.0); pH VBG 7.373 (7.300-7.400)
[2025-01-08 09:15] LABS: Device NASAL CANNULA
[2025-01-08 09:18] LABS: Basophils Absolute Auto 0.1 K/mm3 (0.0-0.1); Basophils Percent Auto 1.1 % (0.2-1.2); Eosinophils Absolute Auto 0.5 K/mm3 (0-0.3); Eosinophils Percent Auto 5.5 % (0-4.4); Hematocrit 40.2 % (37.0-47.0); Hemoglobin 12.7 g/dL (12.0-15.0); Immature Granulocyte Absolute 0.07 K/mm3 (0.00-0.031); Immature Granulocyte Percent A 0.8 % (0-0.5); Lymphocytes Absolute Auto 1.86 K/mm3 (0.9-3.2); Lymphocytes Percent Auto 21.7 % (18.3-44.2); Mean Corpuscular HGB Conc 31.6 g/dl (32-36); Mean Corpuscular Hemoglobin 30.8 pg (26-34); Mean Corpuscular Volume 97.6 fl (80-100); Mean Platelet Volume 9.7 fl (7.4-10.4); Monocytes Absolute Auto 0.7 K/mm3 (0.1-0.6); Monocytes Percent Auto 8.2 % (2.6-8.5); Neutrophils Absolute Auto 5.4 K/mm3 (1.3-6.7); Neutrophils Percent Auto 62.7 % (45.5-73.1); Platelet Count Result 281 k/mm3 (150-375); Red Blood Count 4.12 M/mm3 (4.2-5.4); Red Cell Distribution Width 13.6 % (11.5-14.5); White Blood Count 8.6 K/mm3 (4.5-10.0)
[2025-01-08 09:28] LABS: Alanine Aminotransferase 25 U/L (6-35); Albumin Level 4.2 g/dL (3.5-5.1); Alkaline Phosphatase 64 U/L (38-126); Anion Gap 8 mmol/L (4-12); Aspartate Amino Transferase 31 U/L (14-36); Bilirubin,Total 0.7 mg/dL (0.2-1.3); Blood Urea Nitrogen 12 mg/dL (7-17); Calcium 9.3 mg/dL (8.4-10.2); Carbon Dioxide 29 mmol/L (22-30); Chloride 103 mmol/L (98-107); Estimated CRCL calculation 57 ml/min; Estimated Glomerular Filt Rate 58; Glucose 114 mg/dL (65-110); Magnesium 2.3 mg/dL (1.6-2.3); Potassium 3.4 mmol/L (3.4-5.0); Sodium 140 mmol/L (137-145)
[2025-01-08 10:23] LABS: Influenza A QL RT-PCR Negative (Negative); Influenza B QL RT-PCR Negative (Negative); RSV RNA, RT-PCR. Negative (Negative); SARS-CoV-2 RNA PCR Negative (Negative)
== END 2025-01-08 10:46 | disposition home or self-care (01) ==
PROVIDERS: Emergency Provider Emergency Medicine; PCP Internal Medicine
DX: I25.10 Atherosclerotic heart disease of native coronary artery without angina pectoris (principal); F17.210 Nicotine dependence, cigarettes, uncomplicated; Z20.822 Contact with and (suspected) exposure to COVID-19
CPT/HCPCS: 36415; 71045; 80053; 82803; 83735; 85025; 87637; 93005; 94640; 96365; 96375; 99284; J1100; J3360; J3475; J7030

== ENCOUNTER 2025-01-27 08:44 | Emergency (ER) | payer OTHER, SELFPAY ==
[2025-01-27] VITALS (17 sets, daily range): BP systolic 108–140; BP diastolic 56–93; PULSE 89–103; RESP 16–25; TEMP 36.5–36.6; O2SAT 93–100
--- NOTE | ~2025-01-27 | XR_ITS ---
XR chest 2V Ordering provider: Efe Rivera MD History: 64 years Female with . dyspnea COPD, SOB . Comparison: None. FINDINGS: MEDIASTINUM: The cardiac silhouette is not enlarged. LUNGS: No effusions or pneumothorax. Opacification is seen near to the apex of the heart suggestive o f atelectasis versus pneumonia in the lingula. Follow-up advised. Prominent markings in the right autumn g base. OTHER: No free air under the diaphragm. Degenerative spine. IMPRESSION: Highly suggestive pneumonia in the area of the lingula. Follow-up advised. Reviewed, dictated and finalized at location A.
--- OUTSIDE RECORDS SUMMARY | 2025-01-27 08:46 | XMS_ITS | Clinical Summary ---
Author Organization [facility] [address] Address [address] [place] [address] Care Team Providers Care Shot Coat Tender Name Role Phone Parish Valdez MD Primary Care Provider [phone] Allergies Active Allergy Reactions Criticality Noted Date Comments Codeine Itching Low 11/27/2023 Medications aspirin 81 mg enteric coated tablet Take 1 tablet (81 mg total) by mouth every morning 4 Active nitroglycerin (NITROSTAT) 0.4 mg SL tablet DISSOLVE 1 TABLET UNDER THE TONGUE EVERY 5 MINUTES FOR 3 DOSES NEEDED FOR CHEST PAIN 4 Active doxycycline 100 mg tablet Take 1 tablet/capsul e (100 mg total) by mouth every 12 [...] TIMES DAILY FOR 10 DAYS NEEDED Active budesonide-form oteroL (SYMBICORT) 160-4.5 mcg/actuation inhaler INHALE 2 PUFFS BY MOUTH TWICE DAILY. RINSE MOUTH AFTER USE Active rosuvastatin (CRESTOR) 20 mg tablet Take 1 tablet (20 mg total) by mouth nightly 90 tablet 5 Active dilTIAZem CD 180 mg 24 hr capsule Take 1 capsule (180 mg total) by mouth daily 90 capsule 5 Active hydrOXYzine (VISTARIL) 25 mg capsule TAKE 1 CAPSULE BY MOUTH THREE TIMES DAILY NEEDED FOR ANXIETY 5 Active atorvastatin (LIPITOR) 40 mg tablet Take 1 tablet (40 mg total) by mouth daily 90 tablet 4 12/30/19 Discontinu ed(Alterna te therapy) dilTIAZem CD 180 mg 24 hr capsule Take 1 capsule (180 mg total) by mouth daily 5 12/30/19 Discontinu ed(Reorder ) rosuvastatin (CRESTOR) 20 mg tablet Take 1 tablet (20 mg total) by mouth nightly 5 12/30/19 Discontinu ed(Reorder ) Active Problems Problem Noted Date Diagnosed Date Hospital discharge follow-up 01/20/2025 Coronary artery disease invo lving yurok coronary artery of yurok heart without angina pectoris 01/20/2025 Atrial tachycardia 01/20/2025 Encounters Date Type Department Care Team Description 01/20/2025 10:30 AM CDT Office Visit [facility] Cardiology [address] [place] [address] [place] [phone] Veronika Kim NP Hospital discharge follow-up (Primary Dx); Coronary artery disease involving yurok coronary artery of yurok heart without angina pectoris; Atrial tachycardia 12/29/2024 Telephone [facility] Cardiology [address] [place] [address] [address] [place] [phone] Liudmila Chilel NP 12/19/2024 Results Follow-Up [facility] Cardiology at [address] [place] [phone] Cooper Mathias MD SCAN - RADIOLOGY/IMAGING 12/06/2024 Orders Only [facility] Cardiology [address] [place] [address] [place] [phone] Veronika Kim NP 11/30/2024 Orders Only [facility] Cardiology [address] [place] [address] [address] [place] [phone] Angelica Lozada MD 11/29/2024 Results Follow-Up [facility] Cardiology [address] [place] [address] [address] [place] [address] Felisa Bolivar, JESSICA 24 HR Holter Monitor 11/28/2024 Orders Only [facility] [address] [place] [address] Cooper Mathias MD 11/26/2024 Orders Only [facility] [address] [place] [address] Cooper Mathias MD 11/24/2024 2:45 PM CDT Ancillary Procedure [facility] Cardiology [address] [place] [phone] Palpitations 11/23/2024 Orders Only [facility] [address] [place] [address] Angelica Lozada MD from Last 3 Months [...] Sign Reading Time Taken Comments Blood Pressure 112/60 01/20/2025 10:09 AM CDT Pulse 106 01/20/2025 10:09 AM CDT Temperature - - Respiratory Rate - - Oxygen Saturation 91% 01/20/2025 10:09 AM CDT Inhaled Oxygen Concentration - - Weight 83 kg (182 lb 14.4 oz) 01/20/2025 10:09 A M CDT Height 165.1 cm (5' 5) 01/20/2025 10:09 AM CDT Body Mass Index 30.44 01/20/2025 10:09 AM CDT Plan of Treatment Health Maintenance Due Date Last Done Comments Breast Cancer Screening-Mammogram 1960 Cervical Cancer Screening 1960 Colon Cancer Screening-Colonoscopy 1960 Depression Screening 1960 Hepatitis C Screening 1960 Hepatitis B Screening 1978 Regular Well Visit/Exam 18-64 1978 Pneumococcal vaccine <65 (1 of 2 - PCV) 09/17/1979 Zoster Vaccine (1 of 2) 2010 Influenza Vaccine (#1) 2025 DTaP/Tdap/Td Vaccine (2 - Td or Tdap) 11/16/203301/2024 Procedures Procedure Name Priority Date/Time Associated Diagnosis Comments ELECTROCARDIOGRAM REPORT Routine 025 3:19 PM CDT Atrial tachycardia POCT LIPID PANEL Routine 01/20/2025 1:56 PM CDT Coronary artery disease involving yurok coronary artery of yurok heart without angina pectoris CARDIOLOGY DOCUMENT SCAN Routine 025 8:37 AM CDT SCAN - RADIOLOGY/IMAGING 11/28/2024 CARDIOLOGY DOCUMENT SCAN Routine 025 1:28 PM CDT CARDIOLOGY DOCUMENT SCAN Routine 025 1:26 PM CDT CARDIOLOGY DOCUMENT SCAN 11/26/2024 SCAN - RADIOLOGY/IMAGING 11/26/2024 HOLTER MONITOR 24 HR Routine 11/24/2024 3:01 PM CDT Palpitations CARDIOLOGY DOCUMENT SCAN Routine 025 12:49 PM CDT CARDIOLOGY DOCUMENT SCAN Routine 025 1:23 PM CDT CARDIOLOGY DOCUMENT SCAN Routine 025 12:43 PM CDT CARDIOLOGY DOCUMENT SCAN 11/23/2024 from Last 3 Months Results * Electrocardiogram Report (01/20/2025 3:19 PM CDT) us Veronika Kim NP ECG ORDERABLES Final Result * POCT lipid panel (01/20/2025 1:56 PM CDT) Cholesterol, POC 146 <200 MG/DL Comment:GLU = 128 HDL, POC 63 >=40 mg/dL Triglycerides, POC 123 <=149 mg/dL LDL Cholesterol POC 59 <=129 mg/dL Chol/HDL Ratio, POC 0.9 NONE Non-HDL Cholesterol, POC 83 NONE mg/dL Cholesterol Total, POC 146 30 - 199 mg/dL Capillary blood 01/20/2025 1 :56 PM CDT Result [facility] Veronika Kim NP POINT OF CARE TEST ORDERABLE S Final Result * Cardiology Document Scan (11/28/2024 8:37 AM CDT) Anatomical Region Laterality Modality Other Veronika Kim NP CV CARDIAC SERVICES PROCEDUR ES Final Result * SCAN - RADIOLOGY/IMAGING (11/28/2024) Anatomical Region Laterality Modality Other Cooper Mathias MD Final Res ult * Cardiology Document Scan (11/27/2024 1:28 PM [...] phy Narrative 11/29/2024 7:30 AM CDT AMBULATORY POMOLOGY TEACHER REPORT Patient Name: Minnie Anguiano Date of : 1960 Requesting Physician: ANNITA Date of interpretation: 11/29/24 Type of monitor : 24 hour Holter monitor Date of the study/Enrollment period: 11/24/2024 Indication: Palpitations Quality of the study: Favorable, some rhythm strips with significant motion artifact Interpretation: Basic cardiac rhythm is sinus with normal [place], QRS and QT interval. The heart rate [...] was used to complete this document, therefore, book or script editor variances may occur. Parish Downing MD [facility] 11/29/24 Procedure Note Parish Downing MD - 11/29/2024 AMBULATORY POMOLOGY TEACHER REPORT Patient Name: Minnie Anguiano Date of : 1960 Requesting Physician: ANNITA Date of interpretation: 11/29/24 Type of monitor : 24 hour Holter monitor Date of the study/Enrollment period: 11/24/2024 Indication: Palpitations Quality of the study: Favorable, some rhythm strips with significantmotion artifact Interpretation: Basic cardiac rhythm is sinus with normal [place], QRS and QTinterval. The heart rate varied [...] software was used to complete this document, therefore,book or script editor variances may occur. Parish Downing MD [facility] 11/29/24 Result Jacky Rosa MD CV [...] Lozada MD CV CARDIAC SERVICES PROCEDU RES Edited Result - Final from Last 3 Months Insurance [facility] Care Teams Shot Coat Tender Relationship Specialty Start Date End Date Parish Valdez MD [address] [place] [address] PCP - General Internal Medicine 01/01/24
--- OUTSIDE RECORDS SUMMARY | 2025-01-27 08:46 | XMS_ITS | Referral Summary ---
Author Organization [place] [address] [address] [place] [phone] Care Team Providers Care Business Analyst Intern Name Role Phone Parish Valdez MD Primary Care Provider [phone] Encounters Date Type Department Care Team Description 01/20/2025 10:30 AM CDT Office Visit [facility] Medical [facility] Cardiology [address] [place] [address] [address] [place] [phone] Veronika Kim NP Hospital discharge follow-up (Primary Dx); Coronary artery disease involving hughes coronary artery of hughes heart without angina pectoris; Atrial tachycardia 12/29/2024 Telephone [facility] Medical [facility] Cardiology [address] [place] [address] [address] [place] [phone] Liudmila Chilel NP 12/19/2024 Results Follow-Up [facility] Cardiology at [address] [place] [phone] Cooper Mathias MD SCAN - RADIOLOGY/IMAGING 12/06/2024 Orders Only [facility] Cardiology [address] [place] [address] [address] [place] [phone] Veronika Kim NP 11/30/2024 Orders Only [facility] Cardiology [address] [place] [address] [address] [place] [phone] Angelica Lozada MD 11/29/2024 Results Follow-Up [facility] Cardiology [address] [place] [address] [address] [place] [phone] Felisa Bolivar RN 24 HR Holter Monitor 11/28/2024 Orders Only [facility] Information Management [address] [place] [address] Cooper Mathias MD 11/26/2024 Orders Only [facility] Information Management [address] [place] [address] Cooper Mathias MD 11/24/2024 2:45 PM CDT Ancillary Procedure [facility] Cardiology [address] [place] [phone] Palpitations 11/23/2024 Orders Only [facility] Health Information Management [address] [place] [address] Angelica Lozada MD from Last 3 Months [...] tablet (20 mg total) by mouth nightly 12/30/19 Discontinu ed(Reorder ) Active Problems Problem Noted Date Diagnosed Date Hospital discharge follow-up 01/20/2025 Coronary artery disease invo lving hughes coronary artery of hughes heart without angina pectoris 01/20/2025 Atrial tachycardia 01/20/2025 Social History Tobacco Use Types Packs/Day Years [...] 01/20/2025 10:09 AM CDT Plan of Treatment Not on file Procedures Procedure Name Priority Date/Time Associated Diagnosis Comments ELECTROCARDIOGRAM REPORT Routine 025 3:19 PM CDT Atrial tachycardia POCT LIPID PANEL Routine 01/20/2025 1:56 PM CDT Coronary artery disease involving hughes coronary artery of hughes heart without angina pectoris CARDIOLOGY DOCUMENT SCAN [...] * Electrocardiogram Report (01/20/2025 3:19 PM CDT) Veronika Kim NP ECG ORDERABLES Final Result [...] Capillary blood 01/20/2025 1 :56 PM CDT Veronika Kim NP POINT OF CARE TEST [...] CDT) Anatomical Region Laterality Modality Other Cooper Matihas MD CV CARDIAC SERVICES PROCE DURES Final [...] phy Narrative 11/29/2024 7:30 AM CDT AMBULATORY APPLIED PSYCHOLOGY TEACHER REPORT Patient Name: Minnie Anguiano Date of : 1960 Requesting Physician: ANNITA Date of interpretation: 11/29/24 Type of monitor : 24 hour Holter monitor Date of the study/Enrollment period: 11/24/2024 Indication: Palpitations Quality of the study: Favorable, some rhythm strips with significant motion artifact Interpretation: Basic cardiac rhythm is sinus with normal [place], QRS and QT interval. The heart rate [...] was used to complete this document, therefore, die sinker variances may occur. Parish Downing MD [facility] 11/29/24 Procedure Note Parish Downing MD - 11/29/2024 AMBULATORY APPLIED PSYCHOLOGY TEACHER REPORT Patient Name: Minnie Anguiano Date of : 1960 Requesting Physician: ANNITA Date of interpretation: 11/29/24 Type of monitor : 24 hour Holter monitor Date of the study/Enrollment period: 11/24/2024 Indication: Palpitations Quality of the study: Favorable, some rhythm strips with significantmotion artifact Interpretation: Basic cardiac rhythm is sinus with normal [place], QRS and QTinterval. The heart rate varied [...] software was used to complete this document, therefore,die sinker variances may occur. Parish Downing MD [facility] 11/29/24 us Dylan Rosa MD CV CARDIAC SERVICES [...] - Final from Last 3 Months Insurance Care Teams Business Analyst Intern Relationship Specialty Start Date End Date Parish Valdez MD [address] [place] [address] PCP - General Internal Medicine 01/01/24
--- OUTSIDE RECORDS SUMMARY | 2025-01-27 08:46 | XMS_ITS | Data Portability ---
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 [email or web address] Not available 01/07/2024 22:12:53 02/24/2024 02/24/2024 smoking [...] start it. Also get pulmonary function tests [email or web address] Not available 02/24/2024 21:43:50 04/29/2024 04/29/2024 she [...] COPD flare she would notify the office [email or web address] Not available 04/29/2024 14:50:20 2024 2024 PFTs. Refuses to get evaluation by gynecology for well-woman refuses any colon cancer screening refuses any immunizations. Blood work has been ordered follow up 3 months. Low-fat diet do not smoke stay active [email or web address] Not available 2024 16:21:48 Plan of Treatment Reminders Order Date Submit Date Provider Last Modified By Organization Details Last Modified Time Details Appointments ANY 15 2024 11:00A M Satinder Valdez MD Not available Not available Not available Lab CBC w/ auto diff 2024 025 [facility], [address] [place] [address], [address], [place], [address], 10/01/2024 08:24:19 CMP, serum or plasma 2024 025 [facility], [address] [place] [address], [address], [place], [address], 10/01/2024 08:24:18 lipid panel, serum 2024 025 [facility], [address] [place] [address], [address], [place], [address], 10/01/2024 08:24:17 Referral None recorded. Procedures None recorded. Surgeries None recorded. Imaging None recorded. Medication Orders prednison e 20 mg tablet 2023 024 [facility] #[id number], [address], [place], [place], [id number], 01/25/2025 14:07:47 atorvasta tin 40 mg tablet 2023 025 [facility] #[id number], [address], [place], [place], [id number], 01/25/2025 14:13:25 prednison e 20 mg tablet 2023 024 [facility] #[id number], [address], [place], [place], [id number], 01/25/2025 14:07:47 Patient TargetsNo targets recorded. Patient Instructions Encounter Date Encounter Id Patient Instructions Last Modified By Organization Details Last Modified Time 01/07/2024 [id number] Patient Health Questionnaire-9* [email or web address] Not available 01/08/2024 10:42:52 02/24/2024 [id number] Quitting Tobacco: Care Instructions [email or web address] Not available 02/24/2024 21:44:48 sending diane to [facility] for ER note and [facility] for PFT [email or web address] Not available 02/24/2024 17:10:26 Reason for Referral None Reported. Results Created Date Observation Date Name Description Value Unit Range Abnormal Flag Note LastModifiedBy Organization Detail LastModifiedTime 10/01/1910/01/2024 LIPID PANEL cholesterol, total 233 mg/dL 100-19 9 above high normal Not Available [facility] ([facility]) [address] [place], [address], 10/01/2024 08:24:17 10/01/19 25 10/01/2024 LIPID PANEL triglyceride s 200 mg/dL 0-149 above high normal Not Available [facility] ([facility]) [address] [place], [address], 10/01/2024 08:24:17 10/01/19 25 10/01/2024 LIPID PANEL HDL cholesterol 75 mg/dL >39 Not Available [facility] ([facility]) [address] [place], [address], 10/01/2024 08:24:17 10/01/19 25 10/01/2024 LIPID PANEL VLDL cholesterol mahogany 35 mg/dL 5-40 Not Available [facility] ([facility]) [address] [place], [address], 10/01/2024 08:24:17 10/01/19 25 10/01/2024 LIPID PANEL LDL chol calc ([facility]) 123 mg/dL 0-99 above high normal Not Available [facility] ([facility]) [address] [place], [address], 10/01/2024 08:24:17 10/01/19 25 10/01/2024 COMP. METAB OLIC PANEL (14) glucose 84 mg/dL 70-99 Not Available [facility] ([facility]) [address] [place], [address], 10/01/2024 08:24:18 10/01/19 25 10/01/2024 COMP. METAB OLIC PANEL (14) BUN 12 mg/dL 8-27 Not Available [facility] ([facility]) [address] [place], [address], 10/01/2024 08:24:18 10/01/19 25 10/01/2024 COMP. METAB OLIC PANEL (14) creatinine 1.03 mg/dL 0.57-1 .00 above high normal Not Available [facility] ([facility]) [address] [place], [address], 10/01/2024 08:24:18 10/01/19 25 10/01/2024 COMP. METAB OLIC PANEL (14) eGFR 61 mL/mi n/1.7 3 >59 Not Available [facility] ([facility]) [address] [place], [address], 10/01/2024 08:24:18 10/01/19 25 10/01/2024 COMP. METAB OLIC PANEL (14) BUN/creatini ne ratio 12 12-28 Not Available [facility] ([facility]) [address] [place], [address], 10/01/2024 08:24:18 10/01/19 25 10/01/2024 COMP. METAB OLIC PANEL (14) sodium 141 mmol/ L 134-14 4 Not Available [facility] ([facility]) [address] [place], [address], 10/01/2024 08:24:18 10/01/19 25 10/01/2024 COMP. METAB OLIC PANEL (14) potassium 4.7 mmol/ L 3.5-5. 2 Not Available [facility] ([facility]) [address] [place], [address], 10/01/2024 08:24:18 10/01/19 25 10/01/2024 COMP. METAB OLIC PANEL (14) chloride 101 mmol/ L 96-106 Not Available [facility] ([facility]) [address] [place], [address], 10/01/2024 08:24:18 10/01/19 25 10/01/2024 COMP. METAB OLIC PANEL (14) carbon dioxide, total 22 mmol/ L 20-29 Not Available [facility] ([facility]) [address] [place], [address], 10/01/2024 08:24:18 10/01/19 25 10/01/2024 COMP. METAB OLIC PANEL (14) calcium 9.6 mg/dL 8.7-10 .3 Not Available [facility] ([facility]) [address] [place], [address], 10/01/2024 08:24:18 10/01/19 25 10/01/2024 COMP. METAB OLIC PANEL (14) protein, total 6.4 g/dL 6.0-8. 5 Not Available [facility] ([facility]) [address] [place], [address], 10/01/2024 08:24:18 10/01/19 25 10/01/2024 COMP. METAB OLIC PANEL (14) albumin 4.3 g/dL 3.9-4. 9 Not Available [facility] ([facility]) [address] [place], [address], 10/01/2024 08:24:18 10/01/19 25 10/01/2024 COMP. METAB OLIC PANEL (14) globulin, total 2.1 g/dL 1.5-4. 5 Not Available [facility] ([facility]) [address] [place], [address], 10/01/2024 08:24:18 10/01/19 25 10/01/2024 COMP. METAB OLIC PANEL (14) bilirubin, total 0.4 mg/dL 0.0-1. 2 Not Available [facility] ([facility]) [address] [facility], [place], [address], 10/01/2024 08:24:18 10/01/19 25 10/01/2024 COMP. METAB OLIC PANEL (14) alkaline phosphatase 90 IU/L 44-121 Not Available [facility] ([facility]) [address] [facility], [place], [address], 10/01/2024 08:24:18 10/01/19 25 10/01/2024 COMP. METAB OLIC PANEL (14) AST (SGOT) 17 IU/L 0-40 Not Available [facility] ([facility]) [address] [place], [address], 10/01/2024 08:24:18 10/01/19 25 10/01/2024 COMP. METAB OLIC PANEL (14) ALT (SGPT) 20 IU/L 0-32 Not Available [facility] ([facility]) [address] [facility], [place], [address], 10/01/2024 08:24:18 10/01/19 25 10/01/2024 CBC WITH DIFFE RENTI AL/PL ATELE T WBC 9.3 x10e3 /uL 3.4-10 .8 Not Available [facility] ([facility]) [address] [place], [address], 10/01/2024 08:24:19 10/01/19 25 10/01/2024 CBC WITH DIFFE RENTI AL/PL ATELE T RBC 5.33 x10e6 /uL 3.77-5 .28 above high normal Not Available [facility] ([facility]) [address] [place], [address], 10/01/2024 08:24:19 10/01/19 25 10/01/2024 CBC WITH DIFFE RENTI AL/PL ATELE T hemoglobin 17.6 g/dL 11.1-1 5.9 above high normal Not Available [facility] ([facility]) [address] [place], [address], 10/01/2024 08:24:19 10/01/19 25 10/01/2024 CBC WITH DIFFE RENTI AL/PL ATELE T hematocrit 53.6 % 34.0-4 6.6 above high normal Not Available [facility] ([facility]) [address] [place], [address], 10/01/2024 08:24:19 10/01/19 25 10/01/2024 CBC WITH DIFFE RENTI AL/PL ATELE T MCV 101 fL 79-97 above high normal Not Available [facility] ([facility]) [address] [place], [address], 10/01/2024 08:24:19 10/01/19 25 10/01/2024 CBC WITH DIFFE RENTI AL/PL ATELE T MCH 33.0 pg 26.6-3 3.0 Not Available [facility] ([facility]) [address] [place], [address], 10/01/2024 08:24:19 10/01/19 25 10/01/2024 CBC WITH DIFFE RENTI AL/PL ATELE T MCHC 32.8 g/dL 31.5-3 5.7 Not Available [facility] ([facility]) [address] [place], [address], 10/01/2024 08:24:19 10/01/19 25 10/01/2024 CBC WITH DIFFE RENTI AL/PL ATELE T RDW 13.8 % 11.7-1 5.4 Not Available [facility] ([facility]) [address] [facility], [place], [address], 10/01/2024 08:24:19 10/01/19 25 10/01/2024 CBC WITH DIFFE RENTI AL/PL ATELE T platelets 263 x10e3 /uL 150-45 0 Not Available [facility] ([facility]) [address] [facility], [place], [address], 10/01/2024 08:24:19 10/01/19 25 10/01/2024 CBC WITH DIFFE RENTI AL/PL ATELE T neutrophils 59 % notest ab. Not Available [facility] ([facility]) [address] [facility], [place], [address], 10/01/2024 08:24:19 10/01/19 25 10/01/2024 CBC WITH DIFFE RENTI AL/PL ATELE T lymphs 29 % notest ab. Not Available [facility] ([facility]) [address] [facility], [place], [address], 10/01/2024 08:24:19 10/01/19 25 10/01/2024 CBC WITH DIFFE RENTI AL/PL ATELE T monocytes 8 % notest ab. Not Available [facility] ([facility]) [address] [facility], [place], [address], 10/01/2024 08:24:19 10/01/19 25 10/01/2024 CBC WITH DIFFE RENTI AL/PL ATELE T eos 2 % notest ab. Not Available [facility] ([facility]) [address] [facility], [place], [address], 10/01/2024 08:24:19 10/01/19 25 10/01/2024 CBC WITH DIFFE RENTI AL/PL ATELE T basos 1 % notest ab. Not Available [facility] ([facility]) [address] [facility], [place], [address], 10/01/2024 08:24:19 10/01/19 25 10/01/2024 CBC WITH DIFFE RENTI AL/PL ATELE T neutrophils (absolute) 5.6 x10e3 /uL 1.4-7. 0 Not Available [facility] ([facility]) [address] [facility], [place], [address], 10/01/2024 08:24:19 10/01/19 25 10/01/2024 CBC WITH DIFFE RENTI AL/PL ATELE T lymphs (absolute) 2.7 x10e3 /uL 0.7-3. 1 Not Available [facility] ([facility]) [address] [facility], [place], [address], 10/01/2024 08:24:19 10/01/19 25 10/01/2024 CBC WITH DIFFE RENTI AL/PL ATELE T monocytes(ab solute) 0.7 x10e3 /uL 0.1-0. 9 Not Available [facility] ([facility]) [address] [place], [address], 10/01/2024 08:24:19 10/01/19 25 10/01/2024 CBC WITH DIFFE RENTI AL/PL ATELE T eos (absolute) 0.2 x10e3 /uL 0.0-0. 4 Not Available [facility] ([facility]) [address] [place], [address], 10/01/2024 08:24:19 10/01/19 25 10/01/2024 CBC WITH DIFFE RENTI AL/PL ATELE T baso (absolute) 0.1 x10e3 /uL 0.0-0. 2 Not Available [facility] ([facility]) [address] [place], [address], 10/01/2024 08:24:19 10/01/19 25 10/01/2024 CBC WITH DIFFE RENTI AL/PL ATELE T immature granulocytes 1 % notest ab. Not Available [facility] ([facility]) [address] [facility], [place], [address], 10/01/2024 08:24:19 10/01/19 25 10/01/2024 CBC WITH DIFFE RENTI AL/PL ATELE T immature grans (abs) 0.1 x10e3 /uL 0.0-0. 1 Not Available [facility] ([facility]) [address] [facility], [place], [address], 10/01/2024 08:24:19 02/25/20 24 03/09/2019 PFT, compl ete No observ ation record ed. [address] [place], [address], 02/27/2024 21:30:57 11/11/19 25 11/10/2024 XR, chest No observ ation record ed. [address] [facility], [place], [address], 11/11/2024 09:12:50 11/11/1911/10/2024 CT, chest , w/o contr ast No observ ation record ed. [address] [address], [place], [address], 11/22/2024 22:38:13 11/18/1911/17/2024 XR, chest No observ ation record ed. [address], [place], [address], 11/18/2024 10:16:53 11/24/19 25 11/23/2024 XR, chest , 2 view No observ ation record ed. [address], [place], [address], 11/25/2024 14:59:46 11/25/19 25 11/23/2024 stres s echoc ardio gram with doppl er color flow (PROC ) No observ ation record ed. [address], [place], [address], 11/25/2024 15:02:11 11/27/19 25 11/25/2024 XR, chest No observ ation record ed. [address], [place], [address], 11/29/2024 22:36:06 11/27/19 25 11/26/2024 CT, angio gram, chest , w/ contr ast No observ ation record ed. [address], [place], [address], 11/29/2024 22:36:06 11/29/19 25 11/28/2024 vicente can cardi olite stres s test (PROC ) No observ ation record ed. [address], [place], [address], 11/29/2024 21:46:22 11/29/19 25 11/28/2024 exerc ise stres s test No observ ation record ed. [address], [place], [address], 11/29/2024 22:36:06 11/29/19 25 11/28/2024 US, doppl er, venou s No observ ation record ed. [address], [place], [address], 11/29/2024 22:36:06 11/30/19 25 11/24/2024 bernabe r monit or No observ ation record ed. [address] [facility] [address], [place], [address], 11/29/2024 22:36:07 12/02/19 25 11/23/2024 US, echoc ardio gram No observ ation record ed. [facility] [address], [place], [address], 12/02/2024 09:04:01 12/07/1912/06/2024 XR, chest , 2 view No observ ation record ed. [address], [place], [address], 12/18/2024 22:45:30 01/09/2001/08/2025 XR, chest No observ ation record ed. [facility] [address], [place], [address], 01/10/2025 12:57:14 Result Notes None recorded. Problems Name Problem SNOMED Code Status Onset Date Resolution Date Notes Provider Name and Address Organization Details Recorded Time Chronic obstructiv e pulmonary disease 26854080 Active Not Available [facility] 3 17:06:31 Gastroesop hageal reflux disease 382928529 Active Not Available [facility] 3 17:06:31 Tobacco user 599742310 Active Not Available [facility] 3 17:06:31 Obesity 282239833 Active Not Available [facility] 3 17:06:31 Hyperlipid emia 15905061 Active Not Available [facility] 3 17:06:31 Depressive disorder 24672557 Active 2016 Not Available [facility] 3 17:06:31 Bronchitis 12555990 Active 2016 Not Available [facility] 3 17:06:31 Low back pain 191302524 Active 2020 Not Available [facility] 3 17:06:31 At increased risk of nutritiona l deficit 153479967 Active 2021 Not Available [facility] 3 17:06:31 HIV screening Active 2021 Not Available [facility] 3 17:06:31 Chronic hypoxemic respirator y failure 550144199 Active 2023 Satinder Valdez MD Attn: Accounting ,[address], [place], [address] , [place] - [facility] 4 22:10:22 HIV screening declined 3278140709410 00 Active 2023 Satinder Valdez MD Attn: Accounting ,[address], [place], [address] , [place] [facility] 4 14:50:08 Mammogram declined 770503071 Active 2023 Satinder Valdez MD Attn: Accounting ,[address], [place], [address] , [place] [facility] 4 14:50:09 Colonoscop y declined 6860298184965 00 Active 2023 Satinder Valdez MD Attn: Accounting ,[address], [place], [address] , [place] [facility] 4 14:50:10 Influenza vaccinatio n declined 840687582 Active 2023 Satinder Valdez MD Attn: Accounting ,[address], [place], [address] , [place] [facility] 4 14:50:12 SARS-CoV-2 vaccinatio n declined 9916351250 Active 2023 Satinder Valdez MD Attn: Accounting ,[address], [place], [address] , [place] [facility] 14:50:13 Lung cancer screening declined 2647925759757 9105 Active 2023 Satinder Valdez MD Attn: Accounting ,[address], [place], [address] , [place] [facility] 14:50:14 Notes:Some problems listed i n Document: #[id number] could not be added to this patient's chart. Please review this document and add these problems to the patient's chart manually as needed. Problem Notes None recorded. Procedures Surgical History Date Name Laterality Status Provider Name and Address Organization Details Recorded Time Caesarean Section completed Jacki Gipson MA [place] - [facility] 11/16/2014 14:25:00 Cholecystectomy completed Jacki Gipson MA [facility] 11/16/2014 14:25:00 Imaging Results None recorded. Procedure Notes None recorded. Medical Equipment None Reported. Allergies Allergen ID Allergen Name Allergen Category Reaction Reaction Severity Criticality Documentation Date Start Date Code Code System Note Provider Name and Address Organization Details Recorded Time 654079 codeine medicatio n itching moderate Not available 2024 2670 RxNorm ELODIA Hunt, [facility] 12:17:26 Medications Name Sig Start Date Stop Date Status Note LastModified by Organization Details LastModified Time Prescript ion - Renewal 11/28 completed Not Available Not Available Not Available Prescript ion - Prior Authoriza tion Request active Not Available Not Available Not Available atorvasta tin 40 mg tablet TAKE 1 TABLET BY MOUTH EVERY DAY 01/25 completed Not Available Not Available Not Available Qvar 80 mcg/actua tion Metered Aerosol [...] FOR SHORTNES S OF BREATH OR WHEEZING 01/25 completed Not Available Not Available Not Available albuterol sulfate 2.5 mg/3 mL (0.083 [...] TABLETS BY MOUTH DAILY FOR 5 DAYS 01/25 completed Not Available Not Available Not Available doxycycli ne hyclate 50 mg capsule 01/06 completed Not Available Not Available Not Available permethri n 5 % topical cream 08/30 completed Not Available Not Available Not Available ciproflox acin 500 mg tablet Take 1 tablet every 12 hours by oral route for 10 days. 08/30 completed Not Available Not Available Not Available sulfameth oxazole 800 mg-trimet hoprim 160 mg tablet TAKE 1 TABLET BY MOUTH EVERY 12 HOURS active Not Available Not Available No t Available aspirin 81 mg tablet,de layed release TAKE 1 TABLET BY MOUTH EVERY MORNING 01/25 completed Not Available Not Available Not Available Depo-Medr ol 80 mg/mL suspensio n [...] completed Not Available Not Available Not Available nicotine (polacril ex) 4 mg gum TAKE 4 MG BUCCALLY EVERY 2 HOURS. 01/25 completed Not Available Not Available Not Available hydrocodo ne 7.5 mg-acetam inophen 325 mg tablet 08/30 completed Not Available Not Available Not Available ranitidin e 150 mg tablet take one tablet by mouth twice daily 30 minutes before a meal 11/28 completed Not Available Not Available Not Available buspirone 10 mg tablet Take 1 tablet every 8 hours by oral route. 2024 active Not Available Not Available Not Avai lable prednison e 50 mg tablet TAKE 1 TABLET BY MOUTH DAILY 01/25 completed Not Available Not Available Not Available nitroglyc johana 0.4 mg sublingua l [...] TAKE 1 TABLET BY MOUTH TWICE DAILY 01/25 completed Not Available Not Available Not Available levalbute rol 1.25 mg/3 mL solution for nebulizat ion Inhale 1.25 mg every 4 hours by nebuliza tion route as needed, for SOB. 2024 active Not Available Not Available Not Avai lable levofloxa roberta 500 mg tablet 08/30 completed Not Available Not Available Not Available levofloxa roberta 750 mg tablet TAKE 1 TABLET BY MOUTH DAILY 01/25 completed Not Available Not Available Not Available [...] completed Not Available Not Available Not Available hydroxyzi ne pamoate 25 mg capsule TAKE 1 CAPSULE BY MOUTH THREE TIMES DAILY NEEDED FOR ANXIETY active Not Available Not Available No t Available azithromy roberta 500 mg tablet 08/30 [...] MOUTH EVERY TWELVE HOURS FOR BREATHIN G 01/25 completed Not Available Not Available Not Available Symbicort 160 mcg-4.5 mcg/actua tion HFA aerosol inhaler INHALE 2 PUFFS BY MOUTH TWICE DAILY. RINSE MOUTH AFTER USE 01/25 completed Not Available Not Available Not Available Dulera 200 mcg-5 mcg/actua tion HFA [...] Updated DateTime 5 158.75 cm 34.3 kg/m2 21206.7 1 g 107 /min 93 % 93 % 138/76 mm[Hg] Wendy Reaves MA [place] - [facility] 5 12:23:06 Date Recorded Body height Body mass index (BMI) Body weight Oxygen saturation Oxygen saturation in Arterial blood by Pulse oximetry Body temperature Heart rate Systolic And Diastolic Provider Name and Address Organization Details Last Updated DateTime 4 158.75 cm 31.8 kg/m2 38413.4 1 g 97 % 97 % 97.8 [degF] 94 /min 140/90 mm[Hg] Shaina Wise MA [place] - [facility] 4 15:25:13 Date Recorded Body height Body mass index (BMI) Body weight Heart rate Oxygen saturation Oxygen saturation in Arterial blood by Pulse oximetry Systolic And Diastolic Provider Name and Address Organization Details Last Updated DateTime 5 158.75 cm 32.8 kg/m2 85624.2 5 g 110 /min 96 % 96 % 122/78 mm[Hg] Sylvia Baumann MA [facility] 5 14:08:31 Date Recorded Body height Body mass index (BMI) Body weight Heart rate Oxygen saturation Oxygen saturation in Arterial blood by Pulse oximetry Systolic And Diastolic Provider Name and Address Organization Details Last Updated DateTime 4 158.75 cm 31.1 kg/m2 95374.0 4 g 96 /min 98 % 98 % 120/66 mm[Hg] Judy ELODIA Tafoya [facility] 4 16:17:17 Date Recorded Body height Body mass index (BMI) Body weight Oxygen saturation Oxygen saturation in Arterial blood by Pulse oximetry Heart rate Systolic And Diastolic Provider Name and Address Organization Details Last Updated DateTime 4 158.75 cm 32.8 kg/m2 92135.8 9 g 98 % 98 % 90 /min 124/72 mm[Hg] Wendy Ritchie MA [facility] 4 12:38:08 Social History Question Answer Notes LastModified by Organizat ion Details LastModified Time Tobacco Smoking Status Current Every Day Smoker Jacki Gipson MA [facility] 11/16/2014 14:25:00 Do You Have [...] Date Of Your Most Recent Tobacco Screening? 01/25/2025 Information not available 01/25/2025 Performs Monthly Self-breast Exam? Yes Information no [...] What Date Was Tobacco Cessation Counseling Provided? 01/25/2025 Information not available 01/25/2025 How Many Years Have You Smoked Tobacco? [...] other forms of tobacco or nicotine? No [email or web address] Information not available 2024 What is your [...] Time Tdap 11/17/2023 completed Sylvia Baumann MA [facility], [place] - [facility] 2024 09:41:35 Past Encounters Encounter ID Performer Location Encounter Start Date Encounter Closed Date Diagnosis/Indication Diagnosis SNOMED-CT Code Diagnosis ICD10 Code Diagnosis Note [id number] MARILEE Howard (Adult Med) [address] [place] [phone] 11/16/2014 14:11:25 11/16/2014 17:25:43 Chronic obstructive pulmonary disease 65551293 Gastroesop hageal reflux disease 339781640 Tobacco user 733445223 Obesity 368714181 Hyperlipidemia 66942073 [id number] MARILEE Howard (Adult Med) [address] [place] [phone] 02/25/2016 14:30:31 02/25/2016 18:01:33 Chronic obstructive pulmonary disease 70299028 J44.9 Gastroesop hageal reflux disease 215077253 K21.9 Hyperlipidemia 84908722 E78.5 Obesity 575035111 E66.9 Tobacco user 274720128 Z 72.0 Normal grief reaction 27 3546373 F43.20 [id number] Rosi Begum MD [facility] ([facility] [address] [place] [phone] 11/13/2016 14:27:12 11/13/2016 17:33:33 Chronic obstructive pulmonary disease 03302971 J44.9 Gastroesop hageal reflux disease 041939424 K21.9 Obesity 149655243 E66.9 Hyperlipidemia 01416658 E78.5 Depressive disorder 3548 9007 F32.89 grief reaction , lost mom last November) [id number] MD Terri Almonte (Adult Med) [address] [place] [phone] 04/16/2017 15:05:45 04/20/2017 09:00:22 Chronic obstructive pulmonary disease 15265475 J44.9 Bronchitis 24364236 J40 Gastroesop hageal reflux disease 484428736 K21.9 Obesity 213459293 E66.9 Hyperlipidemia 31546405 E78.5 [id number] [facility] [address] [place] [phone] 03/16/2018 16:39:42 03/17/2018 10:11:16 Bronchitis 40662838 J40 Chronic ob structive pulmonary disease 19839604 J44.9 Depressive disorder 3548 9007 F32.89 grief reaction , lost mom last November (2015) Tobacco user 326103802 Z 72.0 Gastroesop hageal reflux disease 232309234 K21.9 Obesity 132843360 E66.9 Hyperlipidemia 52774787 E78.5 [id number] [facility] [address] [place], [place] [address] [phone] 0 08/30/2018 16:13:03 08/31/2018 08:48:16 Bronchitis 25925128 J40 Tobacco user 261693467 Z 72.0 Chronic ob structive pulmonary disease 55431273 J44.9 Gastroesop hageal reflux disease 528689040 K21.9 Obesity 252551410 E66.9 Hyperlipidemia 55070631 E78.5 Depressive disorder 3548 9007 F32.89 grief reaction , lost mom last November (2015) [id number] Rosi Begum MD [facility] (Adult Med) [address] [place] [address] [phone] 0 09/26/2019 10:47:45 09/27/2019 08:42:42 Chronic obstructive pulmonary disease 28612649 J44.9 Gastroesop hageal reflux disease 117636012 K21.9 Hyperlipidemia 34953955 E78.5 Tobacco user 158911648 Z 72.0 [id number] MD Terri Almonte (Adult Med) [address] [place] [address] [phone] 0 07/10/2020 08:17:48 07/10/2020 16:38:50 Chronic obstructive pulmonary disease 15905070 J44.9 Gastroesop hageal reflux disease 114404229 K21.9 Hyperlipidemia 95042019 E78.5 Tobacco user 213307580 Z 72.0 Depressive disorder 3548 9007 F32.89 grief reaction , lost mom last November (2015) [id number] [facility] [address] [place] [address] 16480-735 0 12/12/2020 10:01:54 12/12/2020 13:53:29 Chronic obstructive pulmonary disease 61434430 J44.9 Gastroesop hageal reflux disease 925447565 K21.9 Hyperlipidemia 54127049 E78.5 Tobacco user 871571502 Z 72.0 Low back pain 743348680 M54.5 [id number] MD Terri Almonte (Adult Med) [address] [place] [address] [phone] 0 07/22/2021 14:57:13 07/22/2021 15:30:47 Chronic obstructive pulmonary disease 14604347 J44.9 Gastroesop hageal reflux disease 267882498 K21.9 Hyperlipidemia 28341332 E78.5 Tobacco user 355887631 Z 72.0 Obesity 615479375 E66.9 Renewal of prescription 753623694 Z76.0 Low back pain 052018505 M54.50 At [facility] risk of nutritional deficit 549280927 Z91.89 Depressive disorder 3548 7 F32.89 grief reaction , lost mom last November) [id number] MD Terri Almonte (Adult Med) [address] [place] [address] [phone] 0 04/01/2022 16:13:01 04/02/2022 10:16:26 Bronchitis 88562329 J40 Chronic ob structive pulmonary disease 37216026 J44.9 Depressive disorder 3549006 F32.89 grief reaction , lost mom last November (2015) Gastroesop hageal reflux disease 509202402 K21.9 Hyperlipidemia 94290594 E78.5 Low back pain 153009336 M54.50 Obesity 841866226 E66.9 Tobacco user 166732531 Z 72.0 At [facility] risk of nutritional deficit 427012694 Z91.89 HIV screening 194090265 Z11.4 [id number] Rosi Begum MD [facility] (Adult Med) [address] [place] [address] [phone] 0 08/07/2022 16:27:29 08/08/2022 15:12:17 Obesity 523048193 E66.9 BMI is 33.5.he has been advised to watch her diet, exercise and keep the weight down. Chronic ob structive pulmonary disease 02554263 J44.9 Stable.Wan ts to refill med. Depressive disorder 3544 6586 F32.89 Under the care of her psychiatri st. Hyperlipidemia 39552362 E78.5 Low animal fat diet. Tobacco user 055816649 Z 72.0 Advised her to quit smoking. Colon canc er screening declined 2908161667 9109 Z53.20 She refused 08-07-2022 . Administra tion of diphtheria, pertussis, and tetanus vaccine 426213104 Z23 She refused 08-07-2022 . Influenza vaccination declined 094677658 Z28.21 She refused 08-07-2022 . Mammogram declined 31522 5004 Z53.20 She refused 08-07-2022 , Screening for malignant neoplasm of cervix 661903582 Z12.4 She refused 08-07-2022 . [id number] MD Terri Almonte (Adult Med) [address] [place] [address] [phone] 0 02/25/2023 16:38:06 02/26/2023 14:14:06 Osteoarthritis 096107979 M19.90 She said that she has arthritis , it huts when weather changes, wants shot term steroid to easy the pain of back. . Discussed with patient, that steroid has potential side effects as well. such as pathologic fracture, hyperglyce jacinto, bleeding ulcer, poor healing of wound, adrenal insufficie ncy just new a few, She understood . Chronic ob structive pulmonary disease 63800253 J44.9 Stable.Andrés ts to refill med.Advair is not on 340-B, will order dulera instead. Smoker 13014426 F17.200 Advised her to quit smoking. She declined LDCT, she smokes half pack/day for more than 40 years. She is aware of cigarettes smoking can cause permanent emphysema. cancer of lung, throat, or mouth and other diseases. Obesity 702218911 E66.9 BMI is 33.5.he has been advised to watch her diet, exercise and keep the weight down. As 02-25-23, BMI is down to 32.5. HIV screen ing declined 7496218051 32726 Z53.20 She declined 02-25-23. [id number] Rosi Begum MD [facility] (Adult Med) [address] [place] [address] [phone] 0 05/29/2023 14:29:10 06/02/2023 16:10:16 Chronic obstructive pulmonary disease 27610028 J44.9 Stable.Andrés ts to refill med.Advair is not on 340-B, will order dulera instead. She wants advair inhaler refill, but it is not on the list. and this provider contacted medicare pharmacy no maintenanc e inhaler yael 340-B list any more. Smoker 53435564 F17.200 Advised her to quit smoking. She declined LDCT, she smokes half pack/day for more than 40 years. She is aware of cigarettes smoking can cause permanent emphysema. cancer of lung, throat, or mouth and other diseases. Hyperlipidemia 14750691 E78.5 Low animal fat diet. Obesity 462918316 E66.9 BMI is 33.5.he has been advised to watch her diet, exercise and keep the weight down. As 02-25-23, BMI is down to 32.5. As 05-29-23, BMI down to 32. Mammogram declined 52561 5004 Z53.20 She refused 08-07-2022 , She declined 05-29-23. Cervical c ancer Papanicolaou smear screening declined 1772079279 72017 Z53.20 She declined 05-29-23. Colon canc er screening declined 8013296571 9109 Z53.20 She refused 08-07-2022 . She declined 05-29-23. HIV screen ing declined 3509855389 18498 Z53.20 She declined 02-25-23. She declined 05-29-23. [id number] Satinder Valdez MD [facility] [address] [place] [address] 01/07/2024 14:34:10 01/07/2024 16:25:53 Depression screening 878690876 Z13.31 Chronic ob structive pulmonary disease 40359939 J44.9 Chronic hy poxemic respiratory failure 194763476 J96.11 Hyperlipidemia 02171450 E78.5 [id number] Satinder Valdez MD [facility] (Adult Med) [address] [place] [address] 60667-786 0 02/24/2024 15:59:57 02/24/2024 17:12:39 Smoker 42245886 F17.200 Chronic ob structive pulmonary disease 32110147 J44.9 [id number] Satinder Valdez MD [facility] (Adult Med) [address] [place] [address] [phone] 0 04/29/2024 12:05:20 04/29/2024 13:35:35 Hyperlipidemia 53105232 E78.5 Chronic ob structive pulmonary disease 36842859 J44.9 HIV screen ing declined 3008380038 92502 Z53.20 Mammogram declined 19535 5004 Z53.20 Colonoscopy declined 436 5362445 06079 Z53.20 Influenza vaccination declined 980074384 Z28.21 SARS-CoV-2 vaccination declined 7854424322 Z28.21 Lung cance r screening declined 4175652018 4954532 Z53.20 [id number] Satinder Valdez MD [facility] (Adult Med) [address] [place] [address] [phone] 0 2024 11:44:40 2024 13:19:13 Body mass index 30+ - obesity 094679060 Z68.34 Hyperlipidemia 84148695 E78.5 Long-term drug therapy 344472490 Z79.899 Chronic ob structive pulmonary disease 85308293 J44.9 Gastroesop hageal reflux disease 781991442 K21.9 [id number] Satinder Valdez MD [facility] (Adult Med) [address] [place] [address] 33853-212 0 01/25/2025 13:52:46 01/25/2025 14:50:31 Body mass index 30+ - obesity 351524198 Z68.32 Obese class I 6468759771 54880 E66.811 Smoker 64262109 F17.200 Chronic ob structive pulmonary disease 25944930 J44.9 Repeated prescription 18 2122648 Z76.0 Health Concerns Section Related Observation LastModified by Organization Detai ls LastModified Time None Recorded Concern Status LastModified by Organization Details LastModified Time None Recorded Advance Directives Directive N: Payers Insurance Date Sequence Insurance Name Policy Number Policy Ford Covered Member ID Ford Member ID Guarantor Name 01/25/2025 1 [place] WHEN MEDICARE OR MEDICARE REPLACEMENT PRIMARY) Minnie Anguiano [id number] Minnie Anguiano 01/25/2025 1 [place] - [facility] Minnie Anguiano [id number] Minnie Anguiano 04/14/2022 1 UNSPECIFIED KISHOR T PAYOR Minnie Anguiano 01/25/2025 1 [place] Minnie Anguiano [id number] Minnie Anguiano 01/25/2025 1 [facility] - DUAL ELIGIBLE - [place] (MEDICARE REPLACEMENT/ADVANT AGE) Minnie Anguiano [id number] Minnie Anguiano 01/25/2025 1 [facility] PRIOR TO 01/10/2021 (MEDICAID REPLACEMENT - HMO) Minnie Anguiano [id number] Minnie Anguiano 01/25/2025 1 [facility] ON OR AFTER 07/13/2020 - DUAL ELIGIBLE (MEDICARE REPLACEMENT/ADVANT AGE - HMO) [id number] Minnie Anguiano [id number] Minnie Anguiano 01/25/2025 1 [facility] PRIOR TO 01/10/2021 (MEDICAID REPLACEMENT - HMO) Minnie Anguiano [id number] Minnie Anguiano 01/25/2025 1 [facility] ON OR AFTER 07/13/2020 - DUAL ELIGIBLE (MEDICARE REPLACEMENT/ADVANT AGE - HMO) [id number] Minnie Anguiano [id number] Minnie Anguiano 01/25/2025 2 [facility] - DUAL ELIGIBLE - [place] (MEDICARE REPLACEMENT/ADVANT AGE) Minnie Anguiano [id number] Minnie Anguiano 01/25/2025 1 [facility] PRIOR TO 01/10/2021 (MEDICAID REPLACEMENT - HMO) Minnie Anguiano [id number] Minnie Anguiano 01/25/2025 1 [place] N [facility] Minnie Anguiano [id number] Minnie Anguiano 01/25/2025 1 [place] Minnie Anguiano [id number] Minnie Anguiano 01/25/2025 2 [place] WHEN [place] OR MEDICARE REPLACEMENT PRIMARY) Minnie Anguiano [id number] Minnie Anguiano 01/25/2025 3 [place] N [facility] Minnie Anguiano [id number] Minnie Anguiano 01/25/2025 2 [place] [facility] Minnie Anguiano [id number] Minnie Anguiano Notes Date Note Type Note Provider Name and Address Organization Details Recorded Time 01/07/2024 text/html follow-up medica l problems interval history cardiac cath 20% lad aspirin atorvastatin metoprolol discontinued by Cardiology COPD 2 L oxygen continues to smoke breathing stable Satinder Valdez MD Attn: [address] , [place], [address], [place] [facility] 01/07/2024 22:13:28 02/24/2024 text/html ER for a COPD flare-up we do not have the records she is doing a little bit better she just quit smoking about 4 days ago she has not had any chest pain breathing has improved Satinder Valdez MD Attn: [address] , [place], [address], [place] 02/24/2024 21:44:51 04/29/2024 text/html COPD she has bee n doing pretty good with that stable. Dyslipidemia needs her atorvastatin refilled she can do better on a low-fat Satinder Valdez MD Attn: Accounting[address] [facility], [place], [address], [facility] 04/29/2024 14:50:42 2024 text/html COPD has been doing fairly well. Dyslipidemia she quit taking atorvastatin can not really tell me why rhinitis doing good on fluticasone. GERD denies any heartburn Satinder Valdez MD Attn: Accounting,[address] [facility], [place], [address], [facility] 2024 16:22:07 OBGyn Episode No OBEpisode recorded.
--- OUTSIDE RECORDS SUMMARY | 2025-01-27 08:46 | XMS_ITS | Clinical Summary ---
Author Organization [facility] Address [address] [place] [address] Care Team Providers Care Sheet Metal Duct Installer Helper Name Role Phone Ethan Cerrato Primary Care Provider + Source Comments [facility],non-owned Affiliates and Associated Physician Practices is amultiple site organization consisting of ambulatory clinics and hospital sitesin [place], [place], [place] and [place]. This disclosure is being madepursuant to the Care Everywhere program and may not contain all information available regarding this patient. Last updated 18.[facility] Allergies No known active allergies Medications * [...] on file Legal Sex Female 8:53 AM VIOLIN MAKER HAND Gender Identity Not on file Sexual Orientation Not on file Last Filed Vital Signs Vital Sign Reading Time Taken Comments Blood Pressure 122/80 07/25/2017 10:47 AM VIOLIN MAKER HAND Pulse 80 07/25/2017 10:47 AM VIOLIN MAKER HAND Temperature 36.8 C (98.2 F) 07/25/2017 10:47 AM VIOLIN MAKER HAND Respiratory Rate 20 07/25/2017 10:47 AM VIOLIN MAKER HAND Oxygen Saturation 94% 07/25/2017 10:47 AM VIOLIN MAKER HAND Inhaled Oxygen Concentration - - Weight 74.8 kg (165 lb) 07/25/2017 10:47 AM VIOLIN MAKER HAND Height 160 cm (5' 3) 07/25/2017 10:47 AM VIOLIN MAKER HAND Body Mass Index 29.23 07/25/2017 10:47 AM VIOLIN MAKER HAND Plan of Treatment Health Maintenance Due Date [...] season) 2024 DEPRESSION SCREENING 07/13/2024 INFLUENZA VACCINE (#1) 2025 Respiratory Syncytial Virus (RSV) Vaccine Pt: [...] patient's age to complete this topic Insurance [facility] Care Teams Sheet Metal Duct Installer Helper Relationship Specialty Start Date End Date Ethan Cerrato PA [address] [place] [address] PCP - General Physician Manager Of Operations 07/25/17
--- OUTSIDE RECORDS SUMMARY | 2025-01-27 08:46 | XMS_ITS | Encounter Summary ---
Author Organization [facility] Healthcare Address [address] [place] [address] Care Team Providers Care Timber Repairer Name Role Phone Parish Valdez MD Primary Care Provider [phone] Encounter Details Date Type Department Care Team (Late st Contact Info) Description 11/28/2024 Orders Only [facility] Health Information Management [address] [place] [address] Cooper Mathias MD [address] [facility] [address] [facility] [place] [address] Social History Tobacco Use Types Packs/Day Years [...] Date/Time Associated Diagnosis Comments SCAN - RADIOLOGY/IMAGING 11/28/2024 documented in this encounter Results * SCAN - RADIOLOGY/IMAGING (11/28/2024) Anatomical Region Laterality Modality Other us Cooper Mathias MD Final Res ult documented in this encounter Visit Diagnoses Not on filedocumented in this encounter Care Teams Timber Repairer Relationship Specialty Start Date End Date Parish Valdez MD [address] [place] [address] PCP - General Internal Medicine 01/01/24 documented as of this encounter
--- OUTSIDE RECORDS SUMMARY | 2025-01-27 08:46 | XMS_ITS | Encounter Summary ---
Author Organization [facility] Healthcare Address [address] [place] [address] Care Team Providers Care Tension Worker Name Role Phone Parish Valdez MD Primary Care Provider [phone] Encounter Details Date Type Department Care Team (Late st Contact Info) Description 11/29/2024 Results Follow-Up [facility] Medical Group Cardiology [address] [place] [address] Felisa Bolivar, RN 24 HR [...] on filedocumented in this encounter Care Teams Tension Worker Relationship Specialty Start Date End Date Parish Valdez MD [address] [place] [address] PCP - General Internal Medicine 01/01/24 documented as of this encounter
--- OUTSIDE RECORDS SUMMARY | 2025-01-27 08:46 | XMS_ITS | Encounter Summary ---
Author Organization [facility] Healthcare Address [address] [place] [address] Care Team Providers Care Keypunch Operator Name Role Phone Parish Valdez MD Primary Care Provider [phone] Encounter Details Date Type Department Care Team (Late st Contact Info) Description 12/19/2024 Results Follow-Up [facility] Cardiology at [address] [place] [address] [place] [address] [place] [address] [address] [facility], [address] [place] [address] SCAN - RADIOLOGY/IMAGING Social History Tobacco Use Types Packs/Day Years [...] on filedocumented in this encounter Care Teams Keypunch Operator Relationship Specialty Start Date End Date Parish Valdez MD [address] [place] [address] PCP - General Internal Medicine 01/01/24 documented as of this encounter
--- NOTE | 2025-01-27 08:52 | ECG_ITS ---
Test Date: 2025-01-27 08:54:52 Measurements Intervals Hope Rate: 100 P: 69 DE: 154 QRS: 68 QRSD: 74 T: 71 QT: 319 QTc: 411 Interpretive Statements SINUS TACHYCARDIA LOW QRS VOLTAGE IN PRECORDIAL LEADS [QRS DEFLECTION < 1.0 mV IN CHEST LEADS] NONSPECIFIC T-WAVE ABNORMALITY ABNORMAL RHYTHM ECG Compared to ECG 01/08/2025 07:53:15 NO SIGNIFICANT CHANGE Electronically Signed On 01-27-2025 14:16:04 CDT by Parish Downing M.D.
--- OUTSIDE RECORDS SUMMARY | 2025-01-27 09:08 | XMS_ITS | Encounter Summary ---
Author Organization [facility] Healthcare Address [address] [place] [address] Care Team Providers Care Casting Supervisor Name Role Phone Parish Valdez MD Primary Care Provider [phone] Encounter Details Date Type Department Care Team (Late st Contact Info) Description 12/19/2024 Results Follow-Up [facility] Medical Group Cardiology at [address] [place] [address] [place] [address] [place] [address] [address] [facility], [address] [place] [address] SCAN - RADIOLOGY/IMAGING Social History Tobacco Use [...] on filedocumented in this encounter Care Teams Casting Supervisor Relationship Specialty Start Date End Date Parish Valdez MD [address] [place] [address] PCP - General Internal Medicine 01/01/24 documented as of this encounter
--- OUTSIDE RECORDS SUMMARY | 2025-01-27 09:08 | XMS_ITS | Encounter Summary ---
Author Organization [facility] Healthcare Address [address] [place] [address] Care Team Providers Care Rubber And Pounder Name Role Phone Parish Valdez MD Primary Care Provider [phone] Encounter Details Date Type Department Care Team (Late st Contact Info) Description 11/29/2024 Results Follow-Up [facility] Medical Group Cardiology [address] [place] [address] Felisa Bolivar, RN 24 HR [...] on filedocumented in this encounter Care Teams Rubber And Pounder Relationship Specialty Start Date End Date Parish Valdez MD [address] [place] [address] PCP - General Internal Medicine 01/01/24 documented as of this encounter
--- OUTSIDE RECORDS SUMMARY | 2025-01-27 09:08 | XMS_ITS | Encounter Summary ---
Author Organization [facility] Healthcare Address [address] [place] [address] Care Team Providers Care Fourdrinier Machine Tender Name Role Phone Parish Valdez MD Primary Care Provider [phone] Encounter Details Date Type Department Care Team (Late st Contact Info) Description 11/28/2024 Orders Only [facility] Health Information Management [address] [place] [address] Cooper Mathias MD [address] [facility] [address] [facility], [address] [place] [address] Social History Tobacco Use Types Packs/Day Years [...] on filedocumented in this encounter Care Teams Fourdrinier Machine Tender Relationship Specialty Start Date End Date Parish Valdez MD [address] [place] [address] PCP - General Internal Medicine 01/01/24 documented as of this encounter
--- OUTSIDE RECORDS SUMMARY | 2025-01-27 09:08 | XMS_ITS | Clinical Summary ---
Author Organization [facility] Address [address] [place] [address] Care Team Providers Care Well Testing Operator Name Role Phone Ethan Cerrato Primary Care Provider + Source Comments [facility],non-owned Affiliates and Associated Physician Practices is amultiple site organization consisting of ambulatory clinics and hospital sitesin [place], [place], [place] and [place]. This disclosure is being madepursuant to the Care Everywhere program and may not contain all information available regarding this patient. Last updated 18.[facility] Allergies No known active allergies Medications * [...] on file Legal Sex Female 8:53 AM WATER WELL DRILLER Gender Identity Not on file Sexual Orientation Not on file Last Filed Vital Signs Vital Sign Reading Time Taken Comments Blood Pressure 122/80 07/25/2017 10:47 AM WATER WELL DRILLER Pulse 80 07/25/2017 10:47 AM WATER WELL DRILLER Temperature 36.8 C (98.2 F) 07/25/2017 10:47 AM WATER WELL DRILLER Respiratory Rate 20 07/25/2017 10:47 AM WATER WELL DRILLER Oxygen Saturation 94% 07/25/2017 10:47 AM WATER WELL DRILLER Inhaled Oxygen Concentration - - Weight 74.8 kg (165 lb) 07/25/2017 10:47 AM WATER WELL DRILLER Height 160 cm (5' 3) 07/25/2017 10:47 AM WATER WELL DRILLER Body Mass Index 29.23 07/25/2017 10:47 AM WATER WELL DRILLER Plan of Treatment Health Maintenance Due Date [...] patient's age to complete this topic Insurance [facility] Care Teams Well Testing Operator Relationship Specialty Start Date End Date Ethan Cerrato PA [address] [place] [address] PCP - General Physician Solutions Delivery Consultant 07/25/17
--- OUTSIDE RECORDS SUMMARY | 2025-01-27 09:08 | XMS_ITS | Clinical Summary ---
Author Organization [facility] [address] Address [address] [place] [address] Care Team Providers Care Glass Washer Name Role Phone Parish Valdez MD Primary Care Provider [phone] Allergies Active Allergy Reactions Criticality Noted Date [...] follow-up 01/20/2025 Coronary artery disease invo lving united keetoowah coronary artery of united ke[place] heart without angina pectoris 01/20/2025 Atrial tachycardia 01/20/2025 Encounters Date Type Department Care Team Description 01/20/2025 10:30 AM CDT Office Visit [facility] Cardiology [address] [place] [address] [place] [phone] Veronika Kim NP Hospital discharge follow-up (Primary Dx); Coronary artery disease involving united keetoowah coronary artery of united ke[place]owah heart without angina pectoris; Atrial tachycardia 12/29/2024 Telephone [facility] Cardiology [address] [place] [address] [address] [place] [phone] Liudmila Chilel NP 12/19/2024 Results Follow-Up [facility] Medical Group Cardiology at [address] [place] [phone] Cooper Mathias MD SCAN - RADIOLOGY/IMAGING 12/06/2024 Orders Only [facility] Cardiology [address] [place] [address] [place] [phone] Veronika Kim NP 11/30/2024 Orders Only [facility] Cardiology [address] [place] [address] [address] [place] [phone] Angelica Lozada MD 11/29/2024 Results Follow-Up [facility] Cardiology [address] [place] [address] [address] [place] [address] Felisa Bolivar, JESSICA 24 HR Holter Monitor 11/28/[address] [facility] Health Information Management [address] [place] [address] Cooper Mathias MD 11/26/[address] [facility] Health Information Management [address] [place] [address] Cooper Mathias MD 11/24/2024 2:45 PM CDT Ancillary Procedure [facility] Cardiology [address] [facility] [address] [place] [address] Palpitations 11/23/[address] [facility] Health Information Management [address] [place] [address] Angelica Lozada MD from Last 3 Months [...] 1:56 PM CDT Coronary artery disease involving united keetoowah coronary artery of united [place] heart without angina pectoris CARDIOLOGY DOCUMENT SCAN [...] blood 01/20/2025 1 :56 PM CDT Result [facility] Veronika Kim NP POINT OF CARE TEST [...] phy Narrative 11/29/2024 7:30 AM CDT AMBULATORY HUMAN RESOURCES TEAM MEMBER REPORT Patient Name: Minnie Anguiano Date of : 1960 Requesting Physician: ANNITA Date of interpretation: 11/29/24 Type of monitor : 24 hour Holter monitor Date of the study/Enrollment period: 11/24/2024 Indication: Palpitations Quality of the study: Favorable, some rhythm strips with significant motion artifact Interpretation: Basic cardiac rhythm is sinus with normal RI, QRS and QT interval. The heart rate [...] was used to complete this document, therefore, batcher operator variances may occur. Parish Downing MD [facility] 11/29/24 Procedure Note Parish Downing MD - 11/29/2024 AMBULATORY HUMAN RESOURCES TEAM MEMBER REPORT Patient Name: Minnie Anguiano Date of : 1960 Requesting Physician: ANNITA Date of interpretation: 11/29/24 Type of monitor : 24 hour Holter monitor Date of the study/Enrollment period: 11/24/2024 Indication: Palpitations Quality of the study: Favorable, some rhythm strips with significantmotion artifact Interpretation: Basic cardiac rhythm is sinus with normal RI, QRS and QTinterval. The heart rate varied [...] software was used to complete this document, therefore,batcher operator variances may occur. Parish Downing MD [facility] 11/29/24 Result Jacky Rosa MD CV CARDIAC [...] - Final from Last 3 Months Insurance [facility] Care Teams Glass Washer Relationship Specialty Start Date End Date Parish Valdez MD [address] [place] [address] PCP - General Internal Medicine 01/01/24
--- OUTSIDE RECORDS SUMMARY | 2025-01-27 09:08 | XMS_ITS | Referral Summary ---
Author Organization [place] [address] [address] [place] [address] Care Team Providers Care Endless Track Vehicle Supervisor Name Role Phone Parish Valdez MD Primary Care Provider Encounters Date Type Department Care Team Description 01/20/2025 10:30 AM CDT Office Visit [facility] Medical [facility] Cardiology [address] [place] [address] [address] [place] [phone] Veronika Kim NP Hospital discharge follow-up (Primary Dx); Coronary artery disease involving torres martinez coronary artery of torres martinez heart without angina pectoris; Atrial tachycardia 12/29/2024 Telephone [facility] Medical [facility] Cardiology [address] [place] [address] [address] [place] [phone] Liudmila Chilel NP 12/19/2024 Results Follow-Up [facility] Medical Group Cardiology at [address] [place] [address] Cooper Mathias MD SCAN - RADIOLOGY/IMAGING 12/06/2024 Orders Only [facility] Cardiology [address] [place] [address] [place] [phone] Veronika Kim NP 11/30/2024 Orders Only [facility] Cardiology [address] [place] [address] [address] [place] [phone] Angelica Lozada MD 11/29/2024 Results Follow-Up [facility] Cardiology [address] [place] [address] [address] [place] [phone] Felisa Bolivar RN 24 HR Holter Monitor 11/28/2024 Orders Only [facility] Health Information Management [address] [place] [address] Cooper Mathias MD 11/26/2024 Orders Only [facility] Health Information Management [address] [place] [address] Cooper Mathias MD 11/24/2024 2:45 PM CDT Ancillary Procedure [facility] Medical Group Cardiology [address] [place] [address] Palpitations 11/23/2024 Orders Only [facility] Health Information Management [address] [place] [address] Angelica Lozada MD from Last 3 Months [...] follow-up 01/20/2025 Coronary artery disease invo lving torres martinez coronary artery of torres martinez heart without angina pectoris 01/20/2025 Atrial tachycardia [...] 1:56 PM CDT Coronary artery disease involving torres martinez coronary artery of torres martinez heart without angina pectoris CARDIOLOGY DOCUMENT SCAN [...] phy Narrative 11/29/2024 7:30 AM CDT AMBULATORY MAINTENANCE SHOP CLERK REPORT Patient Name: Minnie Anguiano Date of : 1960 Requesting Physician: ANNITA Date of interpretation: 11/29/24 Type of monitor : 24 hour Holter monitor Date of the study/Enrollment period: 11/24/2024 Indication: Palpitations Quality of the study: Favorable, some rhythm strips with significant motion artifact Interpretation: Basic cardiac rhythm is sinus with normal FL, QRS and QT interval. The heart rate [...] was used to complete this document, therefore, fleet operations manager variances may occur. Parish Downing MD [facility] 11/29/24 Procedure Note Parish Downing MD - 11/29/2024 AMBULATORY MAINTENANCE SHOP CLERK REPORT Patient Name: Minnie Anguiano Date of : 1960 Requesting Physician: ANNITA Date of interpretation: 11/29/24 Type of monitor : 24 hour Holter monitor Date of the study/Enrollment period: 11/24/2024 Indication: Palpitations Quality of the study: Favorable, some rhythm strips with significantmotion artifact Interpretation: Basic cardiac rhythm is sinus with normal FL, QRS and QTinterval. The heart rate varied [...] software was used to complete this document, therefore,fleet operations manager variances may occur. Parish Downing MD [facility] 11/29/24 us Dylan Rosa MD CV CARDIAC [...] from Last 3 Months Insurance Care Teams Endless Track Vehicle Supervisor Relationship Specialty Start Date End Date Parish Valdez MD [address] [place] [address] PCP - General Internal Medicine 01/01/24
--- NOTE | 2025-01-27 09:15 | ED_ITS ---
HPI - SOB/Dyspnea General Chief Complaint: Shortness of Breath/Dyspnea Stated Complaint: SOB Time Seen by Provider: 01/27/25 09:01 Source: patient Mode of arrival: ambulatory Limitations: no limitations History of Present Illness HPI Narrative: Patient is a 64-year-old female who presents the ED with report of shortness of breath. Patient reports history of COPD with p.r.n. oxygen use, typically wears 2 L nasal cannula at night. Reports she began feeling increasingly short of breath yesterday. Reports wheezing, productive cough. Tried her nebulizer at home without improvement. Denies fevers, chest pain, lower extremity pain or swelling. Related Data Home Medications ?Medication ?Instructions ?Recorded ?Confirmed ?Last Taken ?Type umeclidinium 62.5 mcg/actuation 1 inh inhalation DAILY 10/26/23 12/06/24 12/06/24 History blister powder for inhalation (Incruse Ellipta) fluticasone propionate 115 2 puff inhalation Q12H 12/06/24 12/06/24 12/05/24 History mcg-salmeterol 21 mcg/actuation HFA inhaler Allergies Allergy/AdvReac Type Severity Reaction Status Date / Time codeine AdvReac Itching Verified 01/08/25 09:07 Review of Systems 2 Review of Systems: All systems reviewed & are unremarkable except as noted in HPI. All systems reviewed & are unremarkable except as noted in HPI and below PMFSH Past Medical History Medical History Tobacco abuse Chronic obstructive pulmonary disease Coronary artery disease (10/2023) Nuclear stress test showed a large, severe non reversible infarcts including multiple meyers of the apex and mid anterior and mid posterior segments consistent with infarct with no reversible ischemia. Surgical History Surgical History History of section Family History Family History Mother Cerebrovascular accident Sibling FH: CABG (coronary artery bypass surgery) Father Stented coronary artery Social History Social History Social History: Surrogate medical decision maker: Meghan Babcock, daughter. Code status: Full code. Smoking packs per day: 0.25 Smoking cigarettes per day: 5.0 Years smoked: 40 Smoking pack-years: 10.00 Smoking status: Current some day smoker Tobacco type: cigarettes Second hand tobacco smoke exposure: Yes Alcohol intake: former Drinks per week: 28 Substance use: never Substance use type: does not use Last use: 10/11/24 Do You Feel Safe in your Home?: Yes Lack of Transportation: No Lack of Food: Never True Current Housing: I Have Housing Concerned About Future Housing: No Difficulty Paying Gas/Electric Bills: No Difficulty Paying for Meds: No Currently Unemployed: No Education: High School Diploma/GED Difficulty w/ Childcare or Family Care: No Living arrangements: with family Spiritual care concerns: No Exam 2 Narrative: GENERAL: Elderly, chronically ill appearing, well-nourished, non-toxic, in mild respiratory acute distress. HEAD: Normocephalic, atraumatic. RESPIRATORY: Airway patent, respirations mildly tachypneic and labored. Decreased lung sounds throughout. Diffuse inspiratory and expiratory wheezing. On 2 L nasal cannula. CARDIOVASCULAR: Borderline tachycardic with regular rhythm without murmurs, rubs, or gallops. MUSCULOSKELETAL: Moves all extremities. No gross deformities. No peripheral edema. No calf tenderness. SKIN: Warm, dry, normal color. NEURO: A&O X3. Speech clear. Cranial nerves II-XII grossly intact. Steady gait. No ataxic movements. PSYCHIATRIC: Appropriate mood and affect. Normal interaction. Course Vital Signs Vital signs: Vital Signs Pulse Rate 103 H 01/27/25 08:52 Respiratory Rate 24 H 01/27/25 08:52 Blood Pressure 140/71 01/27/25 08:52 Pulse Oximetry 97 01/27/25 08:52 Temperature 97.7 F 01/27/25 10:01 Pulse Rate 89 01/27/25 10:54 Respiratory Rate 19 01/27/25 10:54 Blood Pressure 125/82 01/27/25 10:54 Pulse Oximetry 94 01/27/25 10:54 Oxygen Delivery Nasal Cannula 01/27/25 08:56 Oxygen Flow Rate 3 01/27/25 08:56 MDM - SOB/Dyspnea MDM Narrative Medical decision making narrative: Patient presented to ED with increased shortness of breath since yesterday, concern for COPD flare. Vital signs are stable upon arrival, however patient currently requiring oxygen. She does have prn home O2, and typically wears oxygen night. Currently on 2 L nasal cannula. Maintaining oxygen saturations on this. Patient with diffuse wheezing, decreased lung sounds throughout. Given hour long nebulizer treatment and 125 mg of Solu-Medrol. Laboratory studies without leukocytosis or anemia. Electrolytes are stable. Stable kidney function. Consistent with previous records. Viral swabs are negative. EKG without concerning ischemic changes. Troponin undetectable. BNP within normal range for age. Chest x-ray consistent with pneumonia. Will treat for such. Given dose of IV Rocephin and azithromycin in the ED. After hour long nebulizer treatment, patient is feeling significantly better. Still w/ slight faint wheezing on exam, but lung sounds do sound improved. Utilize shared decision-making with patient. She would prefer to go home. She does not wish to be admitted at this time. She has home oxygen that she can use as needed. Has a nebulizer machine that she can continue at home as well. Will discharge on antibiotics, steroids. Advised close follow-up with PCP for further evaluation. Discussed very strict return precautions. Patient voiced understanding and is in agreement with plan. Discharged in stable condition. Vital signs stable at time of D/C. Medical Records Attestation: I reviewed the patient's medical records. Lab Data Attestation: I reviewed the patient's lab results. 01/27/25 09:53 01/27/25 09:53 Labs: Lab Results 01/27/25 01/27/25 Range/Units 09:53 09:53 WBC 8.2 (4.5-10.0) K/mm3 RBC 4.11 L (4.2-5.4) M/mm3 Hgb 12.7 (12.0-15.0) g/dL Hct 39.8 (37.0-47.0) % MCV 96.8 (80-100) fl MCH 30.9 (26-34) pg MCHC 31.9 L (32-36) g/dl RDW 13.2 (11.5-14.5) % Plt Count 253 (150-375) k/mm3 MPV 10.2 (7.4-10.4) fl Immature Gran % (Auto) 0.1 (0-0.5) % Neut % (Auto) 71.9 (45.5-73.1) % Lymph % (Auto) 16.3 L (18.3-44.2) % [place] % (Auto) 5.0 (2.6-8.5) % Eos % (Auto) 6.0 H (0-4.4) % Baso % (Auto) 0.7 (0.2-1.2) % Lymph # (Auto) 1.33 (0.9-3.2) K/mm3 [place] # (Auto) 0.4 (0.1-0.6) K/mm3 Eos # (Auto) 0.5 H (0-0.3) K/mm3 Baso # (Auto) 0.1 (0.0-0.1) K/mm3 Abs Immat Gran (auto) 0.01 (0.00-0.031) K/mm3 Absolute Neuts (auto) 5.9 (1.3-6.7) K/mm3 Absolute Nucleated RBC 0.000 (0.0-0.012) K/mm3 Nucleated RBC % 0.0 (0.0-0.2) % PT 12.9 (11.1-14.7) Seconds INR 1.0 APTT 27.9 (22.3-36.8) Seconds Sodium 139 (137-145) mmol/L Potassium 3.9 (3.4-5.0) mmol/L Chloride 101 (98-107) mmol/L Carbon Dioxide 27 (22-30) mmol/L Anion Gap 11 (4-12) mmol/L BUN 9 (7-17) mg/dL Creatinine 1.11 H (0.7-1.0) mg/dL Estim Creat Clear Calc 48 ml/min Estimated GFR 49 L (59 - ) Glucose 121 H (65-110) mg/dL Calcium 9.8 (8.4-10.2) mg/dL Total Bilirubin 0.8 (0.2-1.3) mg/dL AST 30 (14-36) U/L ALT 17 (6-35) U/L Alkaline Phosphatase 65 (38-126) U/L Troponin I < 0.012 (0.000-0.034) ng/mL NT-Pro-B Natriuret Pep 170 H Cancelled (19.9-100) pg/mL Total Protein 7.9 (6.3-8.2) g/dL Albumin 4.5 (3.5-5.1) g/dL Influenza A (RT-PCR) Negative (Negative) Influenza B (RT-PCR) Negative (Negative) RSV (RT-PCR) Negative (Negative) SARS-CoV-2 RNA (RT-PCR) Negative (Negative) Imaging Data Attestation: I personally reviewed and interpreted this imaging study as follows: Radiologist's impression: ITS Impressions Chest X-Ray 01/27/25 09:26 IMPRESSION: Highly suggestive pneumonia in the area of the lingula. Follow-up advised. ECG Data EKG #1: Attestation: I personally reviewed and interpreted this ECG as follows: ECG completion date: 01/27/25 ECG completion time: 08:54 EKG Interpretation: tachycardia (100), sinus rhythm and non-specific ST changes Discharge Plan Discharge Clinical Impression: Acute exacerbation of chronic obstructive pulmonary disease (COPD), Pneumonia, Acute on chronic hypoxic respiratory failure Patient Disposition: Home Condition: Stable Instructions: Antibiotic Form, Upper Respiratory Infection (ED), COPD (Chronic Obstructive Pulmonary Disease) (ED), Community Acquired Pneumonia (ED), Chronic Lung Disease and Infection Prevention (ED) Additional Instructions: Take both antibiotics as prescribed. Take steroids as prescribed. Stay well hydrated. Continue your nebulizers and inhalers at home as needed. Follow-up closely with your primary care doctor for further evaluation. Return to the ED if you experience worsening or severe difficulty breathing, persistent fevers, chest pain, unable to keep down food or drink, pain or swelling in your legs, or any other symptoms of concern. Patient Language: Indonesian Prescriptions: New doxycycline monohydrate 100 mg tablet 100 mg PO BID 5 Days Qty: 10 0RF prednisone 50 mg tablet 50 mg PO DAILY Qty: 5 0RF amoxicillin-pot clavulanate 875-125 mg tablet 1 tablet PO Q12H 5 Days Qty: 10 0RF No Action Incruse Ellipta 62.5 mcg/actuation blister with device 1 inh INHALATION DAILY nitroglycerin [Nitrostat] 0.4 mg Tablet, Sublingual 0.4 mg sublingual Q5MIN PRN (Reason: Chest Pain) Qty: 10 0RF Patient Comments: has not had to admin nicotine [Nicoderm CQ] 21 mg/24 hr Patch 24 Hour 1 patch transdermal DAILY Qty: 14 0RF aspirin [Children's Aspirin] 81 mg Tablet,Chewable 81 mg PO DAILY@0800 Qty: 30 0RF rosuvastatin 20 mg Tablet 20 mg PO EVENING Qty: 30 0RF levalbuterol HCl 1.25 mg/3 mL solution for nebulization 1.25 mg inhalation Q4H PRN (Reason: shortness of breath or wheezing) Qty: 72 0RF buspirone 10 mg Tablet 10 mg PO Q8H Qty: 90 0RF diltiazem HCl [Cartia XT] 180 mg capsule,extended release 24hr 180 mg PO DAILY Qty: 30 0RF fluticasone propion-salmeterol 115-21 mcg/actuation HFA aerosol inhaler 2 puff INHALATION Q12H prednisone 10 mg tablet 10 mg PO DAILY Qty: 30 0RF Rx Instructions: Take 40mg daily for 3 days Take 30mg Daily for 3 days Take 20mg Daily for 3 days Take 10mg Daily For 3 days hydroxyzine pamoate 25 mg capsule 25 mg PO TID PRN (Reason: anxiety) Qty: 90 0RF nicotine (polacrilex) [Nicorette] 4 mg gum 4 mg buccal Q2H Qty: 50 0RF prednisone 50 mg tablet 50 mg PO DAILY Qty: 5 0RF sulfamethoxazole-trimethoprim 800-160 mg tablet 1 tablet PO Q12H Qty: 14 0RF Follow-up/Referrals: José Miguel,MD Parish [Primary Care Provider] - Time of Disposition: 11:02
[2025-01-27] MEDS: IPRATROPIUM BR 0.02% INH SOLN 0.5 MG/2.5 ML VIAL 1.5 MG INHALATION (09:21)
[2025-01-27 10:05] LABS: Hematocrit 39.8 % (37.0-47.0); Hemoglobin 12.7 g/dL (12.0-15.0); Immature Granulocyte Percent A 0.1 % (0-0.5); Lymphocytes Absolute Auto 1.33 K/mm3 (0.9-3.2); Mean Corpuscular HGB Conc 31.9 g/dl (32-36); Mean Corpuscular Hemoglobin 30.9 pg (26-34); Mean Corpuscular Volume 96.8 fl (80-100); Nucleated Red Blood Cells Absolute Auto 0.000 K/mm3 (0.0-0.012); Nucleated Red Blood Cells Perc 0.0 % (0.0-0.2); Platelet Count Result 253 k/mm3 (150-375); Red Blood Count 4.11 M/mm3 (4.2-5.4); White Blood Count 8.2 K/mm3 (4.5-10.0)
[2025-01-27 10:17] LABS: INR 1.0; Prothrombin Time 12.9 Seconds (11.1-14.7)
[2025-01-27 10:18] LABS: Partial Thromboplastin Time 27.9 Seconds (22.3-36.8)
[2025-01-27] MEDS: AZITHROMYCIN IV 500 MG in SODIUM CHLORIDE 0.9% IV 250 ML IVPB (10:30)
[2025-01-27] MEDS: cefTRIAXone 1 GM in SODIUM CHLORIDE 0.9% IV 50 ML 100 ML IVPB (10:31)
[2025-01-27 10:40] LABS: Alanine Aminotransferase 17 U/L (6-35); Albumin Level 4.5 g/dL (3.5-5.1); Alkaline Phosphatase 65 U/L (38-126); Anion Gap 11 mmol/L (4-12); Aspartate Amino Transferase 30 U/L (14-36); Bilirubin,Total 0.8 mg/dL (0.2-1.3); Blood Urea Nitrogen 9 mg/dL (7-17); Calcium 9.8 mg/dL (8.4-10.2); Carbon Dioxide 27 mmol/L (22-30); Chloride 101 mmol/L (98-107); Estimated CRCL calculation 48 ml/min; Estimated Glomerular Filt Rate 49; Glucose 121 mg/dL (65-110); Influenza A QL RT-PCR Negative (Negative); Influenza B QL RT-PCR Negative (Negative); Potassium 3.9 mmol/L (3.4-5.0); RSV RNA, RT-PCR Negative (Negative); SARS-CoV-2 RNA PCR Negative (Negative); Sodium 139 mmol/L (137-145); Total Protein 7.9 g/dL (6.3-8.2)
[2025-01-27 10:45] LABS: NT Pro B Type Natriuretic Pept 170 pg/mL (19.9-100); Troponin I < 0.012 ng/mL (0.000-0.034)
== END 2025-01-27 11:53 | disposition home or self-care (01) ==
PROVIDERS: Emergency Medicine; Emergency Provider Physician Assistant; PCP Internal Medicine
DX: J44.1 Chronic obstructive pulmonary disease with (acute) exacerbation (principal); J96.21 Acute and chronic respiratory failure with hypoxia; J18.9 Pneumonia, unspecified organism; Z20.822 Contact with and (suspected) exposure to COVID-19; I25.10 Atherosclerotic heart disease of native coronary artery without angina pectoris; F17.210 Nicotine dependence, cigarettes, uncomplicated; Z79.82 Long term (current) use of aspirin; Z79.899 Other long term (current) drug therapy; R00.0 Tachycardia, unspecified; R94.31 Abnormal electrocardiogram [ECG] [EKG]
CPT/HCPCS: 36415; 71046; 80053; 83880; 84484; 85025; 85610; 85730; 87637; 93005; 94640; 96365; 96367; 96375; 99284; J0456; J0696; J2919; J7050

== ENCOUNTER 2025-02-06 13:35 | Emergency (ER) | payer OTHER, SELFPAY ==
[2025-02-06] VITALS (33 sets, daily range): BP systolic 90–126; BP diastolic 60–109; PULSE 100–115; RESP 17–31; TEMP 36.5; O2SAT 89–99
--- NOTE | ~2025-02-06 | XR_ITS ---
CHEST RADIOGRAPH, PA AND LATERAL CLINICAL HISTORY: SOB . COMPARISON: 01/27/2025 TECHNIQUE: PA and lateral views of the chest. FINDINGS The cardiomediastinal silhouette is unremarkable. Elevation of the left hemidiaphragm with adjacent compressive atelectasis. Increased interstitial markings are identified bilaterally, findings suggesting mild pulmonary vascul ar congestion. The remainder of the lungs are clear. IMPRESSION: Mild pulmonary vascular congestion with elevation of the right hemidiaphragm and adjacent compressive atelectasis Reviewed, dictated and finalized at location A. IMPRESSION: Mild pulmonary vascular congestion with elevation of the right hemidiaphragm an d adjacent compressive atelectasis
--- OUTSIDE RECORDS SUMMARY | 2025-02-06 13:40 | XMS_ITS | Encounter Summary ---
Author Organization [facility] Healthcare Address [address] [place] [address] Care Team Providers Care Vaccine Key Customer Leader Name Role Phone Parish Valdez MD Primary Care Provider [phone] Encounter Details Date Type Department Care Team (Late st Contact Info) Description 11/28/2024 Orders Only [facility] Health Information Management [address] [place] [address] Cooper Mathias MD [address] [facility] [address] [facility], [address] [place] [address] Social History Tobacco Use Types Packs/Day Years [...] Laterality Modality Other us Cooper Mathias MD Edited Re andres - Final documented in this encounter Visit Diagnoses Not on filedocumented in this encounter Care Teams Vaccine Key Customer Leader Relationship Specialty Start Date End Date Parish Valdez MD [address] [place] [address] PCP - General Internal Medicine 01/01/24 documented as of this encounter
--- OUTSIDE RECORDS SUMMARY | 2025-02-06 13:40 | XMS_ITS | Clinical Summary ---
Author Organization [facility] Address [address] [place] [address] Care Team Providers Care Baby Attendant Name Role Phone Ethan Cerrato Primary Care Provider + Source Comments [facility],non-owned Affiliates and Associated Physician Practices is amultiple site organization consisting of ambulatory clinics and hospital sitesin [place], [place], [place] and [place]. This disclosure is being madepursuant to the Care Everywhere program and may not contain all information available regarding this patient. Last updated 18.[facility] Allergies No known active allergies Medications * [...] on file Legal Sex Female 8:53 AM CELLOPHANE TESTER Gender Identity Not on file Sexual Orientation Not on file Last Filed Vital Signs Vital Sign Reading Time Taken Comments Blood Pressure 122/80 07/25/2017 10:47 AM CELLOPHANE TESTER Pulse 80 07/25/2017 10:47 AM CELLOPHANE TESTER Temperature 36.8 C (98.2 F) 07/25/2017 10:47 AM CELLOPHANE TESTER Respiratory Rate 20 07/25/2017 10:47 AM CELLOPHANE TESTER Oxygen Saturation 94% 07/25/2017 10:47 AM CELLOPHANE TESTER Inhaled Oxygen Concentration - - Weight 74.8 kg (165 lb) 07/25/2017 10:47 AM CELLOPHANE TESTER Height 160 cm (5' 3) 07/25/2017 10:47 AM CELLOPHANE TESTER Body Mass Index 29.23 07/25/2017 10:47 AM CELLOPHANE TESTER Plan of Treatment Health Maintenance Due Date [...] patient's age to complete this topic Insurance [facility] Care Teams Baby Attendant Relationship Specialty Start Date End Date Ethan Cerrato PA [address] [place] [address] PCP - General Physician Unit Manager Rn 07/25/17
--- OUTSIDE RECORDS SUMMARY | 2025-02-06 13:40 | XMS_ITS | Encounter Summary ---
Author Organization [facility] Healthcare Address [address] [place] [address] Care Team Providers Care Psychiatric Specialist Name Role Phone Parish Valdez MD Primary Care Provider [phone] Encounter Details Date Type Department Care Team (Late st Contact Info) Description 12/19/2024 Results Follow-Up [facility] Medical Group Cardiology at [address] [place] [address] [place] [address] [place] [address] [address] [facility] [place] [address] SCAN - RADIOLOGY/IMAGING Social History Tobacco Use [...] on filedocumented in this encounter Care Teams Psychiatric Specialist Relationship Specialty Start Date End Date Parish Valdez MD [address] [place] [address] PCP - General Internal Medicine 01/01/24 documented as of this encounter
--- OUTSIDE RECORDS SUMMARY | 2025-02-06 13:40 | XMS_ITS | Data Portability ---
Author Organization [facility] JHONATANCecille Zhou Address [address] [facility] [address] Care Team Providers Care Communication Skills Instructor Name Role Phone SATINDER VALDEZ Primary [...] me in 3 months cardiology note reviewed. [email or web address] Not available 01/07/2024 22:12:53 02/24/2024 02/24/2024 smoking [...] start it. Also get pulmonary function tests [email or web address] Not available 02/24/2024 21:43:50 04/29/2024 04/29/2024 she [...] COPD flare she would notify the office Not available 04/29/2024 14:50:20 2024 2024 PFTs. Refuses to get evaluation by gynecology for well-woman refuses any colon cancer screening refuses any immunizations. Blood work has been ordered follow up 3 months. Low-fat diet do not smoke stay active [email or web address] Not available 2024 16:21:48 01/25/2025 01/25/2025 Refill medications for her nebulizer continue with current therapy COPD today stable do not smoke healthy food choices no angina or anginal equivalents medicines being adjusted for tachycardia anxiety today is pretty good follow up 3 months smoking cessation is paramount quitting tobacco care instructions follow up with me in 3 months [email or web address] Not available 02/05/2025 13:31:18 Plan of Treatment Reminders Order Date Submit Date Provider Last Modified By Organization Details Last Modified Time Details Appointments ANY 15 2024 11:00A Russell Valdez MD Not available Not available Not available Lab CBC w/ auto diff 2024 025 [facility], [address] [place] [address], [place] [address], [place], [address], 10/01/2024 08:24:19 CMP, serum or plasma 2024 025 [facility], [address] [place] [address], [facility] [address], [place], [address], 10/01/2024 08:24:18 lipid panel, serum 2024 025 [facility], [address] [place] [address], [facility] [address], [place], [address], 10/01/2024 08:24:17 Referral None recorded. Procedures None recorded. Surgeries None recorded. Imaging None recorded. Medication Orders buspirone 10 mg tablet 2024 025 [id number] [facility] #[id number], [address], [place], [place], [id number], 01/25/2025 17:25:00 levalbute rol 1.25 mg/3 mL solution for nebulizat ion 2024 025 [email or web address] [facility] #[id number], [address] , [place], [place], [id number], 01/25/2025 17:25:00 prednison e 20 mg tablet 2023 024 [facility] #[id number], [address] , [place], [place], [id number], 01/25/2025 14:07:47 atorvasta tin 40 mg tablet 2023 025 LARY [facility] #[id number], [address] , [place], [place], [id number], 01/25/2025 14:13:25 prednison e 20 mg tablet 2023 024 [facility] #[id number], [address] , [place], [place], [id number], 01/25/2025 14:07:47 Patient TargetsNo targets recorded. Patient Instructions Encounter Date Encounter Id Patient Instructions Last Modified By Organization Details Last Modified Time 01/07/2024 [id number] Patient Health Questionnaire-9* [email or web address] Not available 01/08/2024 10:42:52 02/24/2024 [id number] Quitting Tobacco: Care Instructions [email or web address] Not available 02/24/2024 21:44:48 sending diane to [facility] for ER note and [facility] for PFT [email or web address] Not available 02/24/2024 17:10:26 01/25/2025 [id number] Quitting Tobacco: Care Instructions [email or web address] Not available 01/25/2025 17:25:00 A healthy lifestyle: care instructions [email or web address] Not available 01/25/2025 17:25:00 Reason for Referral None Reported. Results Created Date Observation Date Name Description Value Unit Range Abnormal Flag Note LastModifiedBy Organization Detail LastModifiedTime 10/01/1910/01/2024 LIPID PANEL cholesterol, total 233 mg/dL 100-19 9 above high normal Not Available [facility] [address] [place], [address], 10/01/2024 08:24:17 10/01/19 25 10/01/2024 LIPID PANEL triglyceride s 200 mg/dL 0-149 above high normal Not Available [facility] [address] [place], [address], 10/01/2024 08:24:17 10/01/19 25 10/01/2024 LIPID PANEL HDL cholesterol 75 mg/dL >39 Not Available [facility] [address] [place], [address], 10/01/2024 08:24:17 10/01/19 25 10/01/2024 LIPID PANEL VLDL cholesterol mahogany 35 mg/dL 5-40 Not Available [facility] [address] [place], [address], 10/01/2024 08:24:17 10/01/19 25 10/01/2024 LIPID PANEL LDL chol calc ([facility]) 123 mg/dL 0-99 above high normal Not Available [facility] [address] [place], [address], 10/01/2024 08:24:17 10/01/19 25 10/01/2024 COMP. METAB OLIC PANEL (14) glucose 84 mg/dL 70-99 Not Available [facility] [address] [place], [address], 10/01/2024 08:24:18 10/01/19 25 10/01/2024 COMP. METAB OLIC PANEL (14) BUN 12 mg/dL 8-27 Not Available [facility] [address] [place], [address], 10/01/2024 08:24:18 10/01/19 25 10/01/2024 COMP. METAB OLIC PANEL (14) creatinine 1.03 mg/dL 0.57-1 .00 above high normal Not Available [facility] [address] [facility], [place], [address], 10/01/2024 08:24:18 10/01/19 25 10/01/2024 COMP. METAB OLIC PANEL (14) eGFR 61 mL/mi n/1.7 3 >59 Not Available [facility] [address] [facility], [place], [address], 10/01/2024 08:24:18 10/01/19 25 10/01/2024 COMP. METAB OLIC PANEL (14) BUN/creatini ne ratio 12 12-28 Not Available [facility] [address] [facility], [place], [address], 10/01/2024 08:24:18 10/01/19 25 10/01/2024 COMP. METAB OLIC PANEL (14) sodium 141 mmol/ L 134-14 4 Not Available [facility] [address] [place], [address], 10/01/2024 08:24:18 10/01/19 25 10/01/2024 COMP. METAB OLIC PANEL (14) potassium 4.7 mmol/ L 3.5-5. 2 Not Available [facility] [address] [place], [address], 10/01/2024 08:24:18 10/01/19 25 10/01/2024 COMP. METAB OLIC PANEL (14) chloride 101 mmol/ L 96-106 Not Available [facility] [address] [place], [address], 10/01/2024 08:24:18 10/01/19 25 10/01/2024 COMP. METAB OLIC PANEL (14) carbon dioxide, total 22 mmol/ L 20-29 Not Available [facility] [address] [facility] [place], [address], 10/01/2024 08:24:18 10/01/19 25 10/01/2024 COMP. METAB OLIC PANEL (14) calcium 9.6 mg/dL 8.7-10 .3 Not Available [facility] [address] [facility] [place], [address], 10/01/2024 08:24:18 10/01/19 25 10/01/2024 COMP. METAB OLIC PANEL (14) protein, total 6.4 g/dL 6.0-8. 5 Not Available [facility] [address] [facility] [place], [address], 10/01/2024 08:24:18 10/01/19 25 10/01/2024 COMP. METAB OLIC PANEL (14) albumin 4.3 g/dL 3.9-4. 9 Not Available [facility] [address] [facility] [place], [address], 10/01/2024 08:24:18 10/01/19 25 10/01/2024 COMP. METAB OLIC PANEL (14) globulin, total 2.1 g/dL 1.5-4. 5 Not Available [facility] [address] [facility] [place], [address], 10/01/2024 08:24:18 10/01/19 25 10/01/2024 COMP. METAB OLIC PANEL (14) bilirubin, total 0.4 mg/dL 0.0-1. 2 Not Available [facility] [address] [facility] [place], [address], 10/01/2024 08:24:18 10/01/19 25 10/01/2024 COMP. METAB OLIC PANEL (14) alkaline phosphatase 90 IU/L 44-121 Not Available [facility] [address] [facility], [place], [address], 10/01/2024 08:24:18 10/01/19 25 10/01/2024 COMP. METAB OLIC PANEL (14) AST (SGOT) 17 IU/L 0-40 Not Available [facility] [address] [facility], [place], [address], 10/01/2024 08:24:18 10/01/19 25 10/01/2024 COMP. METAB OLIC PANEL (14) ALT (SGPT) 20 IU/L 0-32 Not Available [facility] [address] [facility], [place], [address], 10/01/2024 08:24:18 10/01/19 25 10/01/2024 CBC WITH DIFFE RENTI AL/PL ATELE T WBC 9.3 x10e3 /uL 3.4-10 .8 Not Available [facility] [address] [facility], [place], [address], 10/01/2024 08:24:19 10/01/19 25 10/01/2024 CBC WITH DIFFE RENTI AL/PL ATELE T RBC 5.33 x10e6 /uL 3.77-5 .28 above high normal Not Available [facility] [address] [place], [address], 10/01/2024 08:24:19 10/01/19 25 10/01/2024 CBC WITH DIFFE RENTI AL/PL ATELE T hemoglobin 17.6 g/dL 11.1-1 5.9 above high normal Not Available [facility] [address] [place], [address], 10/01/2024 08:24:19 10/01/19 25 10/01/2024 CBC WITH DIFFE RENTI AL/PL ATELE T hematocrit 53.6 % 34.0-4 6.6 above high normal Not Available [facility] [address] [facility], [place], [address], 10/01/2024 08:24:19 10/01/19 25 10/01/2024 CBC WITH DIFFE RENTI AL/PL ATELE T MCV 101 fL 79-97 above high normal Not Available [facility] [address] [facility], [place], [address], 10/01/2024 08:24:19 10/01/19 25 10/01/2024 CBC WITH DIFFE RENTI AL/PL ATELE T MCH 33.0 pg 26.6-3 3.0 Not Available [facility] [address] [facility], [place], [address], 10/01/2024 08:24:19 10/01/19 25 10/01/2024 CBC WITH DIFFE RENTI AL/PL ATELE T MCHC 32.8 g/dL 31.5-3 5.7 Not Available [facility] [address] [facility], [place], [address], 10/01/2024 08:24:19 10/01/19 25 10/01/2024 CBC WITH DIFFE RENTI AL/PL ATELE T RDW 13.8 % 11.7-1 5.4 Not Available [facility] [address] [facility], [place], [address], 10/01/2024 08:24:19 10/01/19 25 10/01/2024 CBC WITH DIFFE RENTI AL/PL ATELE T platelets 263 x10e3 /uL 150-45 0 Not Available [facility] [address] [place], [address], 10/01/2024 08:24:19 10/01/19 25 10/01/2024 CBC WITH DIFFE RENTI AL/PL ATELE T neutrophils 59 % notest ab. Not Available [facility] [address] [facility] [place], [address], 10/01/2024 08:24:19 10/01/19 25 10/01/2024 CBC WITH DIFFE RENTI AL/PL ATELE T lymphs 29 % notest ab. Not Available [facility] [address] [facility] [place], [address], 10/01/2024 08:24:19 10/01/19 25 10/01/2024 CBC WITH DIFFE RENTI AL/PL ATELE T monocytes 8 % notest ab. Not Available [facility] [address] [facility] [place], [address], 10/01/2024 08:24:19 10/01/19 25 10/01/2024 CBC WITH DIFFE RENTI AL/PL ATELE T eos 2 % notest ab. Not Available [facility] [address] [facility] [place], [address], 10/01/2024 08:24:19 10/01/19 25 10/01/2024 CBC WITH DIFFE RENTI AL/PL ATELE T basos 1 % notest ab. Not Available [facility] [address] [place], [address], 10/01/2024 08:24:19 10/01/19 25 10/01/2024 CBC WITH DIFFE RENTI AL/PL ATELE T neutrophils (absolute) 5.6 x10e3 /uL 1.4-7. 0 Not Available [facility] [address] [facility] [place], [address], 10/01/2024 08:24:19 10/01/19 25 10/01/2024 CBC WITH DIFFE RENTI AL/PL ATELE T lymphs (absolute) 2.7 x10e3 /uL 0.7-3. 1 Not Available [facility] [address] [place], [address], 10/01/2024 08:24:19 10/01/19 25 10/01/2024 CBC WITH DIFFE RENTI AL/PL ATELE T monocytes(ab solute) 0.7 x10e3 /uL 0.1-0. 9 Not Available [facility] [address] [facility] [place], [address], 10/01/2024 08:24:19 10/01/19 25 10/01/2024 CBC WITH DIFFE RENTI AL/PL ATELE T eos (absolute) 0.2 x10e3 /uL 0.0-0. 4 Not Available [facility] [address] [facility] [place], [address], 10/01/2024 08:24:19 10/01/19 25 10/01/2024 CBC WITH DIFFE RENTI AL/PL ATELE T baso (absolute) 0.1 x10e3 /uL 0.0-0. 2 Not Available [facility] [address] [facility] [place], [address], 10/01/2024 08:24:19 10/01/19 25 10/01/2024 CBC WITH DIFFE RENTI AL/PL ATELE T immature granulocytes 1 % notest ab. Not Available [facility] [address] [facility] [place], [address], 10/01/2024 08:24:19 10/01/19 25 10/01/2024 CBC WITH DIFFE RENTI AL/PL ATELE T immature grans (abs) 0.1 x10e3 /uL 0.0-0. 1 Not Available [facility] [address] [facility] [place], [address], 10/01/2024 08:24:19 02/25/20 24 03/09/2019 PFT, compl ete No observ ation record ed. [email or web address] [address], [address], 02/27/2024 21:30:57 11/11/19 25 11/10/2024 XR, chest No observ ation record ed. [address], [place], [address], 11/11/2024 09:12:50 11/11/19 25 11/10/2024 CT, chest , w/o contr ast No observ ation record ed. [address], [place], [address], 11/22/2024 22:38:13 11/18/19 25 11/17/2024 XR, chest No observ ation record ed. [address], [place], [address], 11/18/2024 10:16:53 11/24/19 25 11/23/2024 XR, chest , 2 view No observ ation record ed. [address], [place], [address], 11/25/2024 14:59:46 11/25/19 25 11/23/2024 stres s echoc ardio gram with doppl er color flow (PROC ) No observ ation record ed. [address], [place], [address], 11/25/2024 15:02:11 11/27/19 25 11/25/2024 XR, chest No observ ation record ed. [address], [place], [address], 11/29/2024 22:36:06 11/27/19 25 11/26/2024 CT, angio gram, chest , w/ contr ast No observ ation record ed. [address], [place], [address], 11/29/2024 22:36:06 11/29/19 25 11/28/2024 vicente can cardi olite stres s test (PROC ) No observ ation record ed. [address], [place], [address], 11/29/2024 21:46:22 11/29/19 25 11/28/2024 exerc ise stres s test No observ ation record ed. [address], [place], [address], 11/29/2024 22:36:06 11/29/19 25 11/28/2024 US, doppl er, venou s No observ ation record ed. [address], [place], [address], 11/29/2024 22:36:06 11/30/19 25 11/24/2024 bernabe r monit or No observ ation record ed. [address] [facility] [place] [address] [address], [place], [address], 11/29/2024 22:36:07 12/02/19 25 11/23/2024 , [facility] ardio gram No observ ation record ed. [address], [place], [address], 12/02/2024 09:04:01 12/07/19 25 12/06/2024 XR, chest , 2 view No observ ation record ed. [address], [place], [address], 12/18/2024 22:45:30 01/09/20 25 01/08/2025 XR, chest No observ ation record ed. [address], [place], [address], 01/10/2025 12:57:14 01/28/20 25 01/27/2025 XR, chest No observ ation record ed. [place] [address], [place], [address], 02/01/2025 12:24:59 Result Notes None recorded. Problems Name Problem SNOMED Code Status Onset Date Resolution Date Notes Provider Name and Address Organization Details Recorded Time Chronic obstructi ve pulmonary disease 45117256 Active Not Available [facility] 3 17:06:31 Gastroeso phageal reflux disease 228317195 Active Not Available [facility] 3 17:06:31 Tobacco user 843762330 Active Not Available [facility] 3 17:06:31 Obesity 413904605 Active Not Available [facility] 3 17:06:31 Hyperlipi demia 78129192 Active Not Available [facility] 3 17:06:31 Depressiv e disorder 32587288 Active 2016 Not Available [facility] 3 17:06:31 Bronchiti s 15483809 Active 2016 Not Available [facility] 3 17:06:31 Low back pain 345390944 Active 2020 Not Available [facility] 3 17:06:31 At increased risk of nutrition al deficit 399273625 Active 2021 Not Available [facility] 3 17:06:31 HIV screening Active 2021 Not Available [facility] 3 17:06:31 Chronic hypoxemic respirato ry failure 487576658 Active 2023 Satinder Valdez MD Attn: Accounting ,[address] [place], [address] , [place] [facility] 4 22:10:22 HIV screening declined 13555476017 9100 Active 2023 Satinder Valdez MD Attn: Accounting ,[address] [place], [address] , [place] [facility] 4 14:50:08 Mammogram declined 106197632 Active 2023 Satinder Valdez MD Attn: Accounting ,[address] [place], [address] , [place] [facility] 4 14:50:09 [place] py declined 62586118353 9100 Active 2023 Satinder Valdez MD Attn: Accounting ,[address] [facility], [place], [place], [address] [place] [address] , [place] [facility] 4 14:50:10 Influenza vaccinati on declined 443935229 Active 2023 Satinder Valdez MD Attn: Accounting ,[address] [facility], [place], [place], [address] [place] [address] , [place] [facility] 4 14:50:12 SARS-CoV- 2 vaccinati on declined 8399356250 Active 2023 Satinder Valdez MD Attn: Accounting ,[address] [facility], [place], [address] , [place] [facility] 4 14:50:13 Lung cancer screening declined 04299433971 288081 Active 2023 Satinder Valdez MD Attn: Accounting ,[address] [facility], [place], [address] , [place] [facility] 4 14:50:14 Coronary arteriosc lerosis 99915252 Active 2024 Catheteri zation normal LV 20 30% LAD [facility] Satinder Valdez MD Attn: Accounting ,[address] [place], [address] , [place] [facility] 5 13:29:16 Notes:Some problems listed i n Document: #[id number] could not be added to this patient's chart. Please review this document and add these problems to the patient's chart manually as needed. Problem Notes None recorded. Procedures Surgical History Date Name Laterality Status Provider Name and Address Organization Details Recorded Time Caesarean Section completed Jacki Gipson MA [place] [facility] 11/16/2014 14:25:00 Cholecystectomy completed Jacki Gipson [place] 11/16/2014 14:25:00 Imaging Results None recorded. Procedure Notes None recorded. Medical Equipment None Reported. Allergies Allergen ID Allergen Name Allergen Category Reaction Reaction Severity Criticality Documentation Date Start Date Code Code System Note Provider Name and Address Organization Details Recorded Time 353453 codeine medicatio n itching moderate Not available 2024 2080 RxNorm Wendy Reaves MA null, [place] [facility] 12:17:26 Medications [...] Available Not Available Not Available doxycycli ne monohydra te 100 mg tablet TAKE 1 TABLET BY MOUTH TWICE DAILY FOR 5 DAYS active Not Available [...] solution for nebulizat ion INHALE 1.25 MG EVERY 4 HOURS BY NEBULIZA TION ROUTE NEEDED FOR SHORTNES S OF BREATH active Not Available [...] 1 TABLET BY MOUTH EVERY 12 HOURS FOR 5 DAYS active Not Available Not Available No t Available hydroxyzi ne pamoate 25 mg capsule [...] Updated DateTime 5 158.75 cm 34.3 kg/m2 23410.7 1 g 107 /min 93 % 93 % 138/76 mm[Hg] Wendy Reaves MA [facility] 5 12:23:06 Date Recorded Body height Body mass index (BMI) Body weight Oxygen saturation Oxygen saturation in Arterial blood by Pulse oximetry Body temperature Heart rate Systolic And Diastolic Provider Name and Address Organization Details Last Updated DateTime 4 158.75 cm 31.8 kg/m2 71632.4 1 g 97 % 97 % 97.8 [degF] 94 /min 140/90 mm[Hg] Shaina Wise MA [place] [facility] 4 15:25:13 Date Recorded Body height Body mass index (BMI) Body weight Heart rate Oxygen saturation Oxygen saturation in Arterial blood by Pulse oximetry Systolic And Diastolic Provider Name and Address Organization Details Last Updated DateTime 5 158.75 cm 32.8 kg/m2 24016.2 5 g 110 /min 96 % 96 % 122/78 mm[Hg] Sylvia Baumann MA [place] [facility] 5 14:08:31 Date Recorded Body height Body mass index (BMI) Body weight Heart rate Oxygen saturation Oxygen saturation in Arterial blood by Pulse oximetry Systolic And Diastolic Provider Name and Address Organization Details Last Updated DateTime 4 158.75 cm 31.1 kg/m2 00347.0 4 g 96 /min 98 % 98 % 120/66 mm[Hg] Judy Tafyoa MA [facility] 4 16:17:17 Date Recorded Body height Body mass index (BMI) Body weight Oxygen saturation Oxygen saturation in Arterial blood by Pulse oximetry Heart rate Systolic And Diastolic Provider Name and Address Organization Details Last Updated DateTime 4 158.75 cm 32.8 kg/m2 26877.8 9 g 98 % 98 % 90 /min 124/72 mm[Hg] Wendy Ritchie MA [facility] 4 12:38:08 Social History Question Answer Notes LastModified by Organizat ion Details LastModified Time Tobacco Smoking Status Current Every Day Smoker Jacki Gipson MA [facility] 11/16/2014 14:25:00 Do You Have [...] not available 11/16/2014 Do you have difficulty dressing, bathing, grooming, or toileting? No Information not available 11/16/2014 What is [...] Time Tdap 11/17/2023 completed Sylvia Baumann MA [facility] 2024 09:41:35 Past Encounters Encounter ID Performer Location Encounter Start Date Encounter Closed Date Diagnosis/Indication Diagnosis SNOMED-CT Code Diagnosis ICD10 Code Diagnosis Note [id number] MARILEE Howard (Adult Med) [address] [place] [id number] 11/16/2014 14:11:25 11/16/2014 17:25:43 Chronic obstructive pulmonary disease 93604152 Gastroesop hageal reflux disease 780601668 Tobacco user 509345812 Obesity 315642489 Hyperlipidemia 87040332 [id number] MARILEE Howard (Adult Med) [address] [place] [id number] 0 02/25/2016 14:30:31 02/25/2016 18:01:33 Chronic obstructive pulmonary disease 34246641 J44.9 Gastroesop hageal reflux disease 202239424 K21.9 Hyperlipidemia 04493243 E78.5 Obesity 577147405 E66.9 Tobacco user 715206269 Z 72.0 Normal grief reaction 27 3109824 F43.20 [id number] MD Terri [place]mon[place] (Adult Med) [address] [place] [id number] 11/13/2016 14:27:12 11/13/2016 17:33:33 Chronic obstructive pulmonary disease 25573879 J44.9 Gastroesop hageal reflux disease 613222324 K21.9 Obesity 973216092 E66.9 Hyperlipidemia 43755608 E78.5 Depressive disorder 3548 9007 F32.89 grief reaction , lost mom last November) [id number] MD Terri [place] (Adult Med) [address] [place] [id number] 04/16/2017 15:05:45 04/20/2017 09:00:22 Chronic obstructive pulmonary disease 29148329 J44.9 Bronchitis 65509814 J40 Gastroesop hageal reflux disease 664295800 K21.9 Obesity 401690968 E66.9 Hyperlipidemia 50356961 E78.5 [id number] MD Terri [place] (Adult Med) [address] [place] [id number] 0 03/16/2018 16:39:42 03/17/2018 10:11:16 Bronchitis 03043764 J40 Chronic ob structive pulmonary disease 31043384 J44.9 Depressive disorder 3548 9007 F32.89 grief reaction , lost mom last November (2015) Tobacco user 578006892 Z 72.0 Gastroesop hageal reflux disease 331361644 K21.9 Obesity 725892963 E66.9 Hyperlipidemia 93670646 E78.5 [id number] MD Terri [place] (Adult Med) [address] [place] [id number] 0 08/30/2018 16:13:03 08/31/2018 08:48:16 Bronchitis 81857674 J40 Tobacco user 740598645 Z 72.0 Chronic ob structive pulmonary disease 84355014 J44.9 Gastroesop hageal reflux disease 316818677 K21.9 Obesity 251527538 E66.9 Hyperlipidemia 93289015 E78.5 Depressive disorder 3548 9007 F32.89 grief reaction , lost mom last November) [id number] MD Terri [place] (Adult Med) [address] [place] [place] [address] [phone] 0 09/26/2019 10:47:45 09/27/2019 08:42:42 Chronic obstructive pulmonary disease 30810579 J44.9 Gastroesop hageal reflux disease 959776618 K21.9 Hyperlipidemia 81001879 E78.5 Tobacco user 190573258 Z 72.0 [id number] [facility] [address] [place] [address] [phone] 0 07/10/2020 08:17:48 07/10/2020 16:38:50 Chronic obstructive pulmonary disease 34317207 J44.9 Gastroesop hageal reflux disease 687026839 K21.9 Hyperlipidemia 88794654 E78.5 Tobacco user 826413900 Z 72.0 Depressive disorder 3544 9007 F32.89 grief reaction , lost mom last November (2015) [id number] [facility] [address] [place] [address] [phone] 0 12/12/2020 10:01:54 12/12/2020 13:53:29 Chronic obstructive pulmonary disease 28781621 J44.9 Gastroesop hageal reflux disease 196567772 K21.9 Hyperlipidemia 43921304 E78.5 Tobacco user 710464096 Z 72.0 Low back pain 378851704 M54.5 [id number] MD Terri Almonte (Adult Med) [address] [place] [address] [phone] 0 07/22/2021 14:57:13 07/22/2021 15:30:47 Chronic obstructive pulmonary disease 72313178 J44.9 Gastroesop hageal reflux disease 104293101 K21.9 Hyperlipidemia 93877198 E78.5 Tobacco user 743225465 Z 72.0 Obesity 360355650 E66.9 Renewal of prescription 942276116 Z76.0 Low back pain 114797751 M54.50 At [facility] risk of nutritional deficit 779660406 Z91.89 Depressive disorder 3542 9007 F32.89 grief reaction , lost mom last November (2015) [id number] MD Terri Almonte (Adult Med) [address] [place] [address] [phone] 0 04/01/2022 16:13:01 04/02/2022 10:16:26 Bronchitis 71644265 J40 Chronic ob structive pulmonary disease 03784062 J44.9 Depressive disorder 3548 9007 F32.89 grief reaction , lost mom last November (2015) Gastroesop hageal reflux disease 101307128 K21.9 Hyperlipidemia 42119895 E78.5 Low back pain 550868503 M54.50 Obesity 415613026 E66.9 Tobacco user 665365519 Z 72.0 At [facility] risk of nutritional deficit 935321086 Z91.89 HIV screening 328708603 Z11.4 [id number] [facility] [address] [place] [address] [phone] 0 08/07/2022 16:27:29 08/08/2022 15:12:17 Obesity 244792644 E66.9 BMI is 33.5.he has been advised to watch her diet, exercise and keep the weight down. Chronic ob structive pulmonary disease 63247248 J44.9 Stable.Wan ts to refill med. Depressive disorder 3548 9007 F32.89 Under the care of her psychiatri st. Hyperlipidemia 81734346 E78.5 Low animal fat diet. Tobacco user 773005746 Z 72.0 Advised her to quit smoking. Colon [facility] screening declined 0436386046 9109 Z53.20 She refused 08-07-2022 . Administra tion of diphtheria, pertussis, and tetanus vaccine 065018358 Z23 She refused 08-07-2022 . Influenza vaccination declined 771921783 Z28.21 She refused 08-07-2022 . Mammogram declined 71379 5004 Z53.20 She refused 08-07-2022 , Screening for malignant neoplasm of cervix 912824915 Z12.4 She refused 08-07-2022 . [id number] MD Terri Almonte (Adult Med) [address] [place] [address] [phone] 0 02/25/2023 16:38:06 02/26/2023 14:14:06 Osteoarthritis 551225216 M19.90 She said that she has arthritis , it huts when weather changes, wants shot term steroid to easy the pain of back. . Discussed with patient, that steroid has potential side effects as well. such as pathologic fracture, hyperglyce jacinto, bleeding ulcer, poor healing of wound, adrenal insufficie ncy just new a few, She understood . Chronic ob structive pulmonary disease 40257365 J44.9 Stable.Andrés ts to refill med.Advair is not on 340-B, will order dulera instead. Smoker 06074025 F17.200 Advised her to quit smoking. She declined LDCT, she smokes half pack/day for more than 40 years. She is aware of cigarettes smoking can cause permanent emphysema. cancer of lung, throat, or mouth and other diseases. Obesity 453871866 E66.9 BMI is 33.5.he has been advised to watch her diet, exercise and keep the weight down. As 02-25-23, BMI is down to 32.5. HIV screen ing declined 2209984337 88940 Z53.20 She declined 02-25-23. [id number] Rosi Begum MD [facility] (Adult Med) [address] [place] [address] [phone] 0 05/29/2023 14:29:10 06/02/2023 16:10:16 Chronic obstructive pulmonary disease 68360538 J44.9 Stable.Wan ts to refill med.Advair is not on 340-B, will order dulera instead. She wants advair inhaler refill, but it is not on the list. and this provider contacted medicare pharmacy no maintenanc e inhaler yael 340-B list any more. Smoker 66293521 F17.200 Advised her to quit smoking. She declined LDCT, she smokes half pack/day for more than 40 years. She is aware of cigarettes smoking can cause permanent emphysema. cancer of lung, throat, or mouth and other diseases. Hyperlipidemia 60186322 E78.5 Low animal fat diet. Obesity 752962658 E66.9 BMI is 33.5.he has been advised to watch her diet, exercise and keep the weight down. As 02-25-23, BMI is down to 32.5. As 05-29-23, BMI down to 32. Mammogram declined 75674 5004 Z53.20 She refused 08-07-2022 , She declined 05-29-23. Cervical c ancer Papanicolaou smear screening declined 0159702019 43020 Z53.20 She declined 05-29-23. Colon canc er screening declined 8544801988 9109 Z53.20 She refused 08-07-2022 . She declined 05-29-23. HIV screen ing declined 2016359924 17330 Z53.20 She declined 02-25-23. She declined 05-29-23. [id number] Satinder Valdez MD [facility] [address] [place] [address] 01/07/2024 14:34:10 01/07/2024 16:25:53 Depression screening 013316694 Z13.31 Chronic ob structive pulmonary disease 35093083 J44.9 Chronic hy poxemic respiratory failure 614169658 J96.11 Hyperlipidemia 10554095 E78.5 [id number] Satinder Valdez MD [facility] (Adult Med) [address] [place] [address] 72591-022 0 02/24/2024 15:59:57 02/24/2024 17:12:39 Smoker 93616497 F17.200 Chronic ob structive pulmonary disease 83670231 J44.9 [id number] Satinder Valdez MD [facility] (Adult Med) [address] [place] [address] [phone] 0 04/29/2024 12:05:20 04/29/2024 13:35:35 Hyperlipidemia 25156341 E78.5 Chronic ob structive pulmonary disease 31266164 J44.9 HIV screen ing declined 5909835137 74345 Z53.20 Mammogram declined 12756 5004 Z53.20 Colonoscopy declined 551 1336355 57326 Z53.20 Influenza vaccination declined 894904439 Z28.21 SARS-CoV-2 vaccination declined 0460902960 Z28.21 Lung cance r screening declined 1548384328 2754050 Z53.20 [id number] Satinder Valdez MD [facility] (Adult Med) [address] [place] [address] 94532-247 0 2024 11:44:40 2024 13:19:13 Body mass index 30+ - obesity 780673033 Z68.34 Hyperlipidemia 86824032 E78.5 Long-term drug therapy 827172981 Z79.899 Chronic ob structive pulmonary disease 54254217 J44.9 Gastroesop hageal reflux disease 462755262 K21.9 [id number] Satinder Valdez MD [facility] (Adult [facility]) [address] [place] [address] 20312-124 0 01/25/2025 13:52:46 01/25/2025 14:50:31 Body mass index 30+ - obesity 693095229 Z68.32 Obese class I 6349276255 77170 E66.811 Smoker 25712663 F17.200 Chronic ob structive pulmonary disease 01246374 J44.9 Repeated prescription 18 7832194 Z76.0 Hyperlipidemia 11427215 E78.5 Coronary arteriosclerosis 17411457 I25.10 Health Concerns Section Related Observation LastModified by Organization Detai ls LastModified Time None Recorded Concern Status LastModified by Organization Details LastModified Time None Recorded Advance Directives Directive N: Payers Insurance Date Sequence Insurance Name Policy Number Policy Ford Covered Member ID Ford Member ID Guarantor Name 01/25/2025 1 [place] WHEN MED[place]ARE OR MEDICARE REPLACEMENT PRIMARY) Minnie Anguiano [id number] Minnie Anguiano 01/25/2025 1 [place] [facility] Minnie Anguiano [id number] Minnie Anguiano 04/14/2022 1 UNSPECIFIED KISHOR T PAYOR Minnie Anguiano 01/25/2025 1 [place] Minnie Anguiano [id number] Minnie Anguiano 01/25/2025 1 [facility] - DUAL ELIGIBLE - [place] (MEDICARE REPLACEMENT/ADVANT AGE) Minine Anguiano [id number] Minnie Anguiano 01/25/[address] [facility] PRIOR TO 01/10/2021 (MEDICAID REPLACEMENT - HMO) Minnie Anguiano [id number] Minnie Anguiano 01/25/[address] [facility] ON OR AFTER 07/13/2020 - DUAL ELIGIBLE (MEDICARE REPLACEMENT/ADVANT AGE - HMO) [id number] Minnie Anguiano [id number] Minnie Anguiano 01/25/[address] [facility] PRIOR TO 01/10/2021 (MEDICAID REPLACEMENT - HMO) Minnie Anguiano [id number] Minnie Anguiano 02/06/2025 1 [facility] - DOS ON OR AFTER 2020 - DUAL ELIGIBLE (MEDICARE REPLACEMENT/ADVANT AGE - HMO) [id number] Minnie Anguiano [id number] Minnie Anguiano 01/25/2025 2 [facility] - DUAL ELIGIBLE - [place] (MEDICARE REPLACEMENT/ADVANT AGE) Minnie Anguiano [id number] Minnie Anguiano 01/25/2025 1 [facility] PRIOR TO 01/10/2021 (MEDICAID REPLACEMENT - HMO) Minnie Anguiano [id number] Minnie Anguiano 01/25/2025 1 [place] [facility] Minnie Anguiano [id number] Minnie Anguiano 01/25/2025 1 [place] Minnei Anguiano [id number] Minnie Anguiano 01/25/2025 2 [place] WHEN [place]ARE OR MEDICARE REPLACEMENT PRIMARY) Minnie Anguiano [id number] Minnie Anguiano 01/25/2025 3 [place] [facility] Minnie Anguiano [id number] Minnie Anguiano 01/25/2025 2 [place] [facility] Minnie Anguiano [id number] Minnie Anguiano OBGyn Episode No OBEpisode recorded.
--- OUTSIDE RECORDS SUMMARY | 2025-02-06 13:40 | XMS_ITS | Referral Summary ---
Author Organization [place] [address] Address [address] [place] [address] Care Team Providers Care Squad Sergeant Name Role Phone Parish Valdez MD Primary Care Provider Encounters Date Type Department Care Team Description 01/20/2025 10:30 AM CDT Office Visit [facility] Medical [facility] Cardiology [address] [place] [address] [address] [place] [address] Veronika Kim NP Hospital discharge follow-up (Primary Dx); Coronary artery disease involving [place] coronary artery of [place] heart without angina pectoris; Atrial tachycardia 12/29/2024 Telephone [facility] Medical [facility] Cardiology [address] [facility] [address] [place] [address] Liudmila Chilel NP 12/19/2024 Results Follow-Up [facility] Medical [facility] Cardiology at [address] [place] [address] Cooper Mathias MD SCAN - RADIOLOGY/IMAGING 12/06/2024 Orders Only [facility] Health Information Management [address] [place] [address] Scanning, Provider 12/06/2024 Orders Only [facility] Cardiology [address] [facility] [address] [place] [address] Veronika Kim NP 11/30/2024 Orders Only [facility] Cardiology [address] [facility] [address] [place] [address] Angelica Lozada MD 11/29/2024 Results Follow-Up [facility] Cardiology [address] [facility] [address] [place] [address] Felisa Bolivar RN 24 HR Holter Monitor 11/28/2024 Orders Only [facility] Health Information Management [address] [place] [address] Cooper Mathias MD 11/26/2024 Orders Only [facility] Health Information Management [address] [place] [address] Cooper Mathias MD 11/24/2024 2:45 PM CDT Ancillary Procedure [facility] Medical Group Cardiology [address] [place] [address] Palpitations 11/23/2024 Orders Only [facility] Health Information Management [address] [place] [address] Angelica Lozada MD from Last 3 Months [...] mg total) by mouth nightly 90 tablet Active dilTIAZem CD 180 mg 24 hr capsule Take 1 capsule (180 mg total) by mouth daily 90 capsule Active hydrOXYzine (VISTARIL) 25 mg capsule TAKE 1 CAPSULE BY MOUTH THREE TIMES DAILY NEEDED FOR ANXIETY Active Active Problems Problem Noted Date Diagnosed Date Hospital discharge follow-up 01/20/2025 Coronary artery disease invo lving [place] coronary artery of [place] heart without angina pectoris 01/20/2025 Atrial tachycardia [...] 1:56 PM CDT Coronary artery disease involving [place] coronary artery of [place] heart without angina pectoris SCAN - RADIOLOGY/IMAGING 12/06/2024 CARDIOLOGY DOCUMENT SCAN Routine 025 8:37 AM [...] CARE TEST ORDERABLE S Final Result * SCAN - RADIOLOGY/IMAGING (12/06/2024) Anatomical Region Laterality Modality Other Provider Scanning Final Result * Cardiology Document Scan (11/28/2024 8:37 AM CDT) Anatomical Region Laterality Modality Other Veronika Kim NP CV CARDIAC SERVICES PROCEDUR ES Final Result * SCAN - RADIOLOGY/IMAGING (11/28/2024) Anatomical Region Laterality Modality Other Cooper Mathias MD Edited Re sult - Final * Cardiology Document Scan (11/27/2024 1:28 PM CDT) Anatomical Region Laterality Modality Other Cooper Mathias MD CV CARDIAC SERVICES PROCE DURES Final Result * Cardiology Document Scan (11/26/2024 1:26 PM CDT) Anatomical Region Laterality Modality Other Cooper Mathias MD CV CARDIAC SERVICES PROCE DURES Final Result * SCAN - RADIOLOGY/IMAGING (11/26/2024) Anatomical Region Laterality Modality Other Result [facility] Cooper Mathias MD Final Res ult * Cardiology Document Scan (11/26/2024) Anatomical Region Laterality Modality Other Cooper Mathias MD CV CARDIAC SERVICES PROCE DURES Final Result * 24 HR Holter Monitor (11/24/2024 3:01 PM CDT) Anatomical Region Laterality Modality Electrocardiogra phy Narrative 11/29/2024 7:30 AM CDT AMBULATORY SKOOG MACHINE OPERATOR REPORT Patient Name: Minnie Anguiano Date [...] was used to complete this document, therefore, rock breaker variances may occur. Parish Downing MD [facility] 11/29/24 Procedure Note Parish Downing MD - 11/29/2024 AMBULATORY SKOOG MACHINE OPERATOR REPORT Patient Name: Minnie Anguiano Date [...] software was used to complete this document, therefore,rock breaker variances may occur. Parish Downing MD [facility] 11/29/24 Dylan Rosa MD CV CARDIAC SERVICES PROCEDURES F inal Result * Cardiology Document Scan (11/24/2024 12:49 PM CDT) Anatomical Region Laterality Modality Other Dylan Rosa MD CV CARDIAC SERVICES PROCEDURES F inal Result * Cardiology Document Scan (11/23/2024 1:23 PM CDT) Anatomical Region Laterality Modality Other us Angelica Lozada MD CV CARDIAC SERVICES PROCEDU RES Final Result * Cardiology Document Scan (11/23/2024 12:43 PM CDT) Anatomical Region Laterality Modality Other Angelica Lozada MD CV CARDIAC SERVICES PROCEDU RES Final Result * Cardiology Document Scan (11/23/2024) Anatomical Region Laterality Modality Other us Angelica Lozada MD CV CARDIAC SERVICES PROCEDU RES Edited Result - Final from Last [address] [id number] Care Teams Squad Sergeant Relationship Specialty Start Date End Date Parish Valdez MD [address] [place] [address] PCP - General Internal Medicine 01/01/24
--- OUTSIDE RECORDS SUMMARY | 2025-02-06 13:40 | XMS_ITS | Encounter Summary ---
Author Organization [facility] Healthcare Address [address] [place] [address] Care Team Providers Care Supervisor [employer] Name Role Phone Parish Valdez MD Primary Care Provider [phone] Encounter Details Date Type Department Care Team (Late st Contact Info) Description 12/06/2024 Orders Only [facility] Health Information Management [address] [place] [address] Scanning, Provider Social History Tobacco Use Types [...] Date/Time Associated Diagnosis Comments SCAN - RADIOLOGY/IMAGING 12/06/2024 documented in this encounter Results * SCAN - RADIOLOGY/IMAGING (12/06/2024) Anatomical Region Laterality Modality Other us Provider Scanning Final Result documented in this encounter Visit Diagnoses Not on filedocumented in this encounter Care Teams Supervisor [employer] Relationship Specialty Start Date End Date Parish Valdez MD [address] [place] [address] PCP - General Internal Medicine 01/01/24 documented as of this encounter
--- OUTSIDE RECORDS SUMMARY | 2025-02-06 13:40 | XMS_ITS | Clinical Summary ---
Author Organization [facility] [address] Address [address] [place] [address] Care Team Providers Care Supervisory Clerk Name Role Phone Parish Valdez MD Primary Care Provider [phone] Allergies Active Allergy Reactions Criticality Noted Date [...] TIMES DAILY NEEDED FOR ANXIETY 5 Active Active Problems Problem Noted Date Diagnosed Date Hospital discharge follow-up 01/20/2025 Coronary artery disease invo lving [place] coronary artery of [place] heart without angina pectoris 01/20/2025 Atrial tachycardia 01/20/2025 Encounters Date Type Department Care Team Description 01/20/2025 10:30 AM CDT Office Visit [facility] Cardiology [address] [place] [address] [place] [phone] Veronika Kim NP Hospital discharge follow-up (Primary Dx); Coronary artery disease involving upper [place] coronary artery of [place] heart without angina pectoris; Atrial tachycardia 12/29/2024 Telephone [facility] Cardiology [address] [place] [address] [place] [phone] Liudmila Chilel NP 12/19/2024 Results Follow-Up [facility] Cardiology at [address] [place] [phone] Cooper Mathias MD SCAN - RADIOLOGY/IMAGING 12/06/2024 Orders Only [facility] Health Information Management [address] [place] [address] Scanning, Provider 12/06/2024 Orders Only [facility] Cardiology [address] [place] [address] [place] [phone] Veronika Kim NP 11/30/2024 Orders Only [facility] Cardiology [address] [place] [address] [place] [address] [phone] Angelica Lozada MD 11/29/2024 Results Follow-Up [facility] Cardiology [address] [place] [address] [place] [phone] Felisa Bolivar, RN 24 HR Holter Monitor 11/28/2024 Orders Only [facility] Health Information Management [address] [place] [address] Cooper Mathias MD 11/26/2024 Orders Only [facility] Health Information Management [address] [place] [address] Cooper Mathias MD 11/24/2024 2:45 PM CDT Ancillary Procedure [facility] Medical Group Cardiology [address] [place] [phone] Palpitations 11/23/2024 Orders Only [facility] Health Information Management [address] [place] [address] Angelica Lozada MD from Last 3 Months [...] 1:56 PM CDT Coronary artery disease involving upper [place] coronary artery of upper [place] heart without angina pectoris SCAN - RADIOLOGY/IMAGING [...] blood 01/20/2025 1 :56 PM CDT Result [facility] Veronika Kim NP POINT OF [...] phy Narrative 11/29/2024 7:30 AM CDT AMBULATORY ICU TECH REPORT Patient Name: Minnie Anguiano Date of : 1960 Requesting Physician: ANNITA Date of interpretation: 11/29/24 Type of monitor : 24 hour Holter monitor Date of the study/Enrollment period: 11/24/2024 Indication: Palpitations Quality of the study: Favorable, some rhythm strips with significant motion artifact Interpretation: Basic cardiac rhythm is sinus with normal NM, QRS and QT interval. The heart rate [...] was used to complete this document, therefore, vice president of academic affairs variances may occur. Parish Downing MD [facility] 11/29/24 Procedure Note Parish Downing MD - 11/29/2024 AMBULATORY ICU TECH REPORT Patient Name: Minnie Anguiano Date of : 1960 Requesting Physician: ANNITA Date of interpretation: 11/29/24 Type of monitor : 24 hour Holter monitor Date of the study/Enrollment period: 11/24/2024 Indication: Palpitations Quality of the study: Favorable, some rhythm strips with significantmotion artifact Interpretation: Basic cardiac rhythm is sinus with normal NM, QRS and QTinterval. The heart rate varied [...] software was used to complete this document, therefore,vice president of academic affairs variances may occur. Parish Downing MD [facility] 11/29/24 Result Jacky Rosa MD [...] - Final from Last 3 Months Insurance [facility] Care Teams Supervisory Clerk Relationship Specialty Start Date End Date Parish Valdez MD [address] [place] [address] PCP - General Internal Medicine 01/01/24
--- NOTE | 2025-02-06 14:15 | ECG_ITS ---
Test Date: 2025-02-06 14:40:44 Measurements Intervals [place] Rate: 98 P: 20 DE: 154 QRS: 64 QRSD: 66 T: 54 QT: 315 QTc: 404 Interpretive Statements SINUS RHYTHM NONSPECIFIC ST & T-WAVE ABNORMALITY Electronically Signed On 02-07-2025 17:08:43 CDT by Thom Diaz D.O
[2025-02-06 14:58] LABS: Alanine Aminotransferase 19 U/L (6-35); Albumin Level 4.2 g/dL (3.5-5.1); Alkaline Phosphatase 60 U/L (38-126); Anion Gap 9 mmol/L (4-12); Aspartate Amino Transferase 26 U/L (14-36); Bilirubin,Total 0.5 mg/dL (0.2-1.3); Blood Urea Nitrogen 6 mg/dL (7-17); Calcium 9.4 mg/dL (8.4-10.2); Carbon Dioxide 26 mmol/L (22-30); Chloride 104 mmol/L (98-107); Estimated CRCL calculation 59 ml/min; Estimated Glomerular Filt Rate > 60; Glucose 112 mg/dL (65-110); Potassium 3.7 mmol/L (3.4-5.0); Sodium 139 mmol/L (137-145); Total Protein 6.9 g/dL (6.3-8.2)
[2025-02-06 15:39] LABS: Hematocrit 36.9 % (37.0-47.0); Hemoglobin 11.6 g/dL (12.0-15.0); Immature Granulocyte Percent A 0.9 % (0-0.5); Lymphocytes Absolute Auto 1.92 K/mm3 (0.9-3.2); Mean Corpuscular HGB Conc 31.4 g/dl (32-36); Mean Corpuscular Hemoglobin 30.6 pg (26-34); Mean Corpuscular Volume 97.4 fl (80-100); Nucleated Red Blood Cells Absolute Auto 0.000 K/mm3 (0.0-0.012); Nucleated Red Blood Cells Perc 0.0 % (0.0-0.2); Platelet Count Result 258 k/mm3 (150-375); Red Blood Count 3.79 M/mm3 (4.2-5.4); White Blood Count 9.0 K/mm3 (4.5-10.0)
[2025-02-06] MEDS: IPRATROPIUM 0.5 MG/ALBUTEROL SULFATE 2.5 MG AMPUL.NEB 3 ML INHALATION ×2 (16:08→18:19)
--- OUTSIDE RECORDS SUMMARY | 2025-02-06 16:36 | XMS_ITS | Encounter Summary ---
Author Organization [facility] Healthcare Address [address] [place] [address] Care Team Providers Care Gear Generator Set Up Operator Name Role Phone Parish Valdez MD Primary Care Provider [phone] Encounter Details Date Type Department Care Team (Late st Contact Info) Description 12/19/2024 Results Follow-Up [facility] Medical Group Cardiology at [address] [place] [address] [place] [address] [place] [address] [address] [facility] [address] [place] [address] SCAN - RADIOLOGY/IMAGING Social History Tobacco Use [...] on filedocumented in this encounter Care Teams Gear Generator Set Up Operator Relationship Specialty Start Date End Date Parish Valdez MD [address] [place] [address] PCP - General Internal Medicine 01/01/24 documented as of this encounter
--- OUTSIDE RECORDS SUMMARY | 2025-02-06 16:36 | XMS_ITS | Encounter Summary ---
Author Organization [facility] Healthcare Address [address] [place] [address] Care Team Providers Care Program Analyst Name Role Phone Parish Valdez MD Primary Care Provider [phone] Encounter Details Date Type Department Care Team (Late st Contact Info) Description 12/06/2024 Orders Only [facility] Health Information Management [address] [place] [address] Scanning, Provider Social History Tobacco Use Types [...] on filedocumented in this encounter Care Teams Program Analyst Relationship Specialty Start Date End Date Parish Valdez MD [address] [place] [address] PCP - General Internal Medicine 01/01/24 documented as of this encounter
--- OUTSIDE RECORDS SUMMARY | 2025-02-06 16:36 | XMS_ITS | Clinical Summary ---
Author Organization [facility] [employer] Address [address] [place] [address] Care Team Providers Care Electrician Wiring Name Role Phone Ethan Cerrato Primary Care Provider + Source Comments [facility] [employer],non-owned Affiliates and Associated Physician Practices is amultiple site organization consisting of ambulatory clinics and hospital sitesin [place], [place], [place] and [place]. This disclosure is being madepursuant to the Care Everywhere program and may not contain all information available regarding this patient. Last updated 18.[facility] [employer] Allergies No known active allergies Medications * [...] on file Legal Sex Female 8:53 AM BELT KNIFE FEEDER Gender Identity Not on file Sexual Orientation Not on file Last Filed Vital Signs Vital Sign Reading Time Taken Comments Blood Pressure 122/80 07/25/2017 10:47 AM BELT KNIFE FEEDER Pulse 80 07/25/2017 10:47 AM BELT KNIFE FEEDER Temperature 36.8 C (98.2 F) 07/25/2017 10:47 AM BELT KNIFE FEEDER Respiratory Rate 20 07/25/2017 10:47 AM BELT KNIFE FEEDER Oxygen Saturation 94% 07/25/2017 10:47 AM BELT KNIFE FEEDER Inhaled Oxygen Concentration - - Weight 74.8 kg (165 lb) 07/25/2017 10:47 AM BELT KNIFE FEEDER Height 160 cm (5' 3) 07/25/2017 10:47 AM BELT KNIFE FEEDER Body Mass Index 29.23 07/25/2017 10:47 AM BELT KNIFE FEEDER Plan of Treatment Health Maintenance Due Date [...] patient's age to complete this topic Insurance [facility] Care Teams Electrician Wiring Relationship Specialty Start Date End Date Ethan Cerrato PA [address] [place] [address] PCP - General Physician Vocational Technical Education Director 07/25/17
--- OUTSIDE RECORDS SUMMARY | 2025-02-06 16:36 | XMS_ITS | Clinical Summary ---
Author Organization [facility] [address] Address [address] [place] [address] Care Team Providers Care Logistics Team Lead Name Role Phone Parish Valdez MD Primary Care Provider [phone] Allergies Active Allergy Reactions Criticality Noted Date [...] follow-up 01/20/2025 Coronary artery disease invo lving [place] coronary artery of [place] heart without angina pectoris 01/20/2025 Atrial tachycardia 01/20/2025 Encounters Date Type Department Care Team Description 01/20/2025 10:30 AM CDT Office Visit [facility] [address] [place] [address] [place] [phone] Veronika Kim NP Hospital discharge follow-up (Primary Dx); Coronary artery disease involving [place] coronary artery of [place] heart without angina pectoris; Atrial tachycardia 12/29/2024 Telephone [facility] [address] [place] [address] [place] [phone] Liudmila Chilel NP 12/19/2024 Results Follow-Up [facility] Cardiology at [address] [place] [phone] Cooper Mathias MD SCAN - RADIOLOGY/IMAGING 12/06/2024 Orders Only [facility] Health Information Management [address] [place] [address] Scanning, Provider 12/06/2024 Orders Only [facility] [address] [place] [address] [place] [phone] Veronika Kim NP 11/30/2024 Orders Only [facility] [address] [place] [address] [place] [address] [phone] Angelica Lozada MD 11/29/2024 Results Follow-Up [facility] [address] [place] [address] [place] [phone] Felisa Bolivar, RN 24 HR Holter Monitor 11/28/2024 Orders Only [facility] Health Information Management [address] [place] [address] Cooper Mathias MD 11/26/2024 Orders Only [facility] Health Information Management [address] [place] [address] Cooper Mathias MD 11/24/2024 2:45 PM CDT Ancillary Procedure [facility] Cardiology [address] [place] [phone] Palpitations 11/23/2024 Orders Only [facility] Health Information Management [address] [place] [address] Angelica Lozada MD from Last 3 Months [...] 1:56 PM CDT Coronary artery disease involving [place] coronary artery of [place] heart without angina pectoris SCAN - RADIOLOGY/IMAGING [...] blood 01/20/2025 1 :56 PM CDT Result [facility] Veronika Kim NP POINT OF CARE [...] phy Narrative 11/29/2024 7:30 AM CDT AMBULATORY ELECTRONIC WARFARE SPECIALIST REPORT Patient Name: Minnie Anguiano Date of : 1960 Requesting Physician: ANNITA Date of interpretation: 11/29/24 Type of monitor : 24 hour Holter monitor Date of the study/Enrollment period: 11/24/2024 Indication: Palpitations Quality of the study: Favorable, some rhythm strips with significant motion artifact Interpretation: Basic cardiac rhythm is sinus with normal [place], QRS and QT interval. The heart rate [...] was used to complete this document, therefore, lpc variances may occur. Parish Downing MD [facility] 11/29/24 Procedure Note Parish Downing MD - 11/29/2024 AMBULATORY ELECTRONIC WARFARE SPECIALIST REPORT Patient Name: Minnie Anguiano Date of : 1960 Requesting Physician: ANNITA Date of interpretation: 11/29/24 Type of monitor : 24 hour Holter monitor Date of the study/Enrollment period: 11/24/2024 Indication: Palpitations Quality of the study: Favorable, some rhythm strips with significantmotion artifact Interpretation: Basic cardiac rhythm is sinus with normal [place], QRS and QTinterval. The heart rate varied [...] software was used to complete this document, therefore,lpc variances may occur. Parish Downing MD [facility] 11/29/24 Result Jacky Rosa MD CV [...] - Final from Last 3 Months Insurance [facility] Care Teams Logistics Team Lead Relationship Specialty Start Date End Date Parish Valdez MD [address] [place] [address] PCP - General Internal Medicine 01/01/24
--- OUTSIDE RECORDS SUMMARY | 2025-02-06 16:36 | XMS_ITS | Encounter Summary ---
Author Organization [facility] Healthcare Address [address] [place] [address] Care Team Providers Care Bundles Hanger Name Role Phone Parish Valdez MD Primary Care Provider [phone] Encounter Details Date Type Department Care Team (Late st Contact Info) Description 11/28/2024 Orders Only [facility] Health Information Management [address] [place] [address] Cooper Mathias MD [address] [facility] [address] [facility] [address] [place] [address] Social History Tobacco Use Types Packs/Day Years [...] on filedocumented in this encounter Care Teams Bundles Hanger Relationship Specialty Start Date End Date Parish Valdez MD [address] [place] [address] PCP - General Internal Medicine 01/01/24 documented as of this encounter
--- OUTSIDE RECORDS SUMMARY | 2025-02-06 16:36 | XMS_ITS | Referral Summary ---
Author Organization [place] [address] Address [address] [place] [address] Care Team Providers Care Billing Customer Service Representative Name Role Phone Parish Valdez MD Primary Care Provider Encounters Date Type Department Care Team Description 01/20/2025 10:30 AM CDT Office Visit [facility] Medical [facility] Cardiology [address] [place] [address] [address] [place] [phone] Veronika Kim NP Hospital discharge follow-up (Primary Dx); Coronary artery disease involving [place] coronary artery of [place] heart without angina pectoris; Atrial tachycardia 12/29/2024 Telephone [facility] Medical [facility] [address] [facility] [address] [place] [phone] Liudmila Chilel NP 12/19/2024 Results Follow-Up [facility] Medical [facility] Cardiology at [address] [place] [phone] Cooper Mathias MD SCAN - RADIOLOGY/IMAGING 12/06/2024 Orders Only [facility] Health Information Management [address] [place] [address] Scanning, Provider 12/06/2024 Orders Only [facility] Cardiology [address] [facility] [address] [place] [phone] Veronika Kim NP 11/30/2024 Orders Only [facility] Cardiology [address] [address] [place] [phone] Angelica Lozada MD 11/29/2024 Results Follow-Up [facility]iology [address] [place] [phone] Felisa Bolivar RN 24 HR Holter Monitor 11/28/2024 Orders Only [facility] Health Information Management [address] [place] [address] Cooper Mathias MD 11/26/2024 Orders Only [facility] Health Information Management [address] [place] [address] Cooper Mathias MD 11/24/2024 2:45 PM CDT Ancillary Procedure [facility] Medical [facility] Cardiology [address] [place] [phone] Palpitations 11/23/2024 Orders Only [facility] Health Information Management [address] [place] [address] Angelica Lozada MD from Last 3 Months [...] follow-up 01/20/2025 Coronary artery disease invo lving [place] coronary artery of [place] heart without angina pectoris 01/20/2025 Atrial tachycardia [...] 1:56 PM CDT Coronary artery disease involving [place] coronary artery of [place] heart without angina pectoris SCAN - RADIOLOGY/IMAGING [...] (11/26/2024) Anatomical Region Laterality Modality Other Result [facility] Cooper Mathias MD Final Res ult * Cardiology Document Scan (11/26/2024) Anatomical Region Laterality Modality Other Cooper Mathias MD CV CARDIAC SERVICES PROCE DURES Final Result * 24 HR Holter Monitor (11/24/2024 3:01 PM CDT) Anatomical Region Laterality Modality Electrocardiogra phy Narrative 11/29/2024 7:30 AM CDT AMBULATORY HEARING CONSULTANT REPORT Patient Name: Minnie Anguiano Date of : 1960 Requesting Physician: ANNITA Date of interpretation: 11/29/24 Type of monitor : 24 hour Holter monitor Date of the study/Enrollment period: 11/24/2024 Indication: Palpitations Quality of the study: Favorable, some rhythm strips with significant motion artifact Interpretation: Basic cardiac rhythm is sinus with normal [place], QRS and QT interval. The heart rate [...] was used to complete this document, therefore, sow farm manager variances may occur. Parish Downing MD [facility] 11/29/24 Procedure Note Parish Downing MD - 11/29/2024 AMBULATORY HEARING CONSULTANT REPORT Patient Name: Minnie Anguiano Date of : 1960 Requesting Physician: ANNITA Date of interpretation: 11/29/24 Type of monitor : 24 hour Holter monitor Date of the study/Enrollment period: 11/24/2024 Indication: Palpitations Quality of the study: Favorable, some rhythm strips with significantmotion artifact Interpretation: Basic cardiac rhythm is sinus with normal [place], QRS and QTinterval. The heart rate varied [...] software was used to complete this document, therefore,sow farm manager variances may occur. Parish Downing MD [facility] 11/29/24 Dylan Rosa MD CV CARDIAC SERVICES [...] - Final from Last [address] [address] [address] Care Teams Billing Customer Service Representative Relationship Specialty Start Date End Date Parish Valdez MD [address] [place] [address] PCP - General Internal Medicine 01/01/24
--- NOTE | 2025-02-06 18:11 | ED_ITS ---
HPI - SOB/Dyspnea General Chief Complaint: Shortness of Breath/Dyspnea Stated Complaint: shortness of breath Time Seen by Provider: 02/06/25 15:41 History of Present Illness HPI Narrative: 64-year-old with history of COPD on 2 L of home oxygen at bedtime presents to the ER complaint of shortness last 2 days. Patient states that she ran out of her albuterol few days ago and she did get a refill last night. She also feels anxious feeling fluttering in chest is she denies any cough or chest pain. No history of fever or chills. She states BuSpar is not helping with her anxiety. MD elicited complaint: shortness of breath and anxiety Pertinent past history: COPD Onset (ago): day(s) (3) Timing: constant Severity: moderate Exacerbating factors: nothing Relieving factors: oxygen and bronchodilators Known history of: COPD Associated symptoms: denies other symptoms Related Data Home oxygen amount: 2 liters Home Medications ?Medication ?Instructions ?Recorded ?Confirmed ?Last Taken ?Type umeclidinium 62.5 mcg/actuation 1 inh inhalation DAILY 10/26/23 12/06/24 12/06/24 History blister powder for inhalation (Incruse Ellipta) fluticasone propionate 115 2 puff inhalation Q12H 12/06/24 12/06/24 12/05/24 History mcg-salmeterol 21 mcg/actuation HFA inhaler Allergies Allergy/AdvReac Type Severity Reaction Status Date / Time codeine AdvReac Itching Verified 02/06/25 13:53 Review of Systems 2 Review of Systems: All systems reviewed & are unremarkable except as noted in HPI and below Constitutional: Constitutional: Reports no additional constitutional complaints Eyes: Eyes: Reports no additional eye complaints ENT: Reports system reviewed and no additional complaints, except as documented Cardiovascular: Cardiovascular: Reports no additional cardiovascular complaints Respiratory: Respiratory: Reports as per HPI Gastrointestinal: Gastrointestinal: Reports no additional gastrointestinal complaints Musculoskeletal: Musculoskeletal: Reports no additional musculoskeletal complaints Neurologic: Reports system reviewed and no additional complaints, except as documented Psychiatric: Psychiatric: Reports anxiety PMFSH Past Medical History Medical History Tobacco abuse Chronic obstructive pulmonary disease Coronary artery disease (10/2023) Nuclear stress test showed a large, severe non reversible infarcts including multiple meyers of the apex and mid anterior and mid posterior segments consistent with infarct with no reversible ischemia. Surgical History Surgical History History of section Family History Family History Mother Cerebrovascular accident Sibling FH: CABG (coronary artery bypass surgery) Father Stented coronary artery Social History Social History Social History: Surrogate medical decision maker: Meghan Babcock, daughter. Code status: Full code. Smoking packs per day: 0.25 Smoking cigarettes per day: 5.0 Years smoked: 40 Smoking pack-years: 10.00 Smoking status: Current some day smoker Tobacco type: cigarettes Second hand tobacco smoke exposure: Yes Alcohol intake: former Drinks per week: 28 Substance use: never Substance use type: does not use Last use: 10/11/24 Do You Feel Safe in your Home?: Yes Lack of Transportation: No Lack of Food: Never True Current Housing: I Have Housing Concerned About Future Housing: No Difficulty Paying Gas/Electric Bills: No Difficulty Paying for Meds: No Currently Unemployed: No Education: High School Diploma/GED Difficulty w/ Childcare or Family Care: No Living arrangements: with family Spiritual care concerns: No Exam 2 Narrative: GENERAL: Well-appearing, well-nourished, and in no acute distress. HEAD: Normocephalic, atraumatic. EYES: PERRLA and EOMI. ENT: Nares clear, no rhinorrhea or epistaxis. Mucous membranes moist. NECK: Supple. CHEST: Bilateral wheeze, poor air entry No respiratory distress. HEART: Regular rate and rhythm. No murmur heard. Normal peripheral pulses. ABDOMEN: Soft, nontender, nondistended, normal active bowel sounds. EXTREMITIES: Normal range of motion. No edema. SKIN: Warm, dry, no rash. NEURO: No focal deficits. Alert and oriented x3. PSYCH: Normal mood and affect. Course Course Emergency Course: Patient was given 2 neb treatments along with IV Solu-Medrol and ativan , did inform her about her lab work, chest x-ray findings. Advised her to take an antibiotic, steroid and Ativan as prescribed continue home medication including nebulizer treatment., follow with her primary doctor Vital Signs Vital signs: Vital Signs Temperature 36.5 C 02/06/25 13:48 Pulse Rate 104 H 02/06/25 13:48 Respiratory Rate 20 02/06/25 13:48 Blood Pressure 90/65 L 02/06/25 13:48 Pulse Oximetry 94 02/06/25 13:48 Oxygen Delivery Room Air 02/06/25 13:48 Temperature 36.5 C 02/06/25 13:48 Pulse Rate 104 H 02/06/25 18:19 Respiratory Rate 20 02/06/25 18:19 Blood Pressure 112/70 02/06/25 15:01 Pulse Oximetry 94 02/06/25 15:01 Oxygen Delivery Room Air 02/06/25 13:48 MDM - SOB/Dyspnea Differential Diagnosis Differential diagnosis: Likely acute exacerbation of chronic obstructive airways disease, congestive heart failure, community acquired pneumonia and asthma with exacerbation Medical Records Attestation: I reviewed the patient's medical records. Lab Data Attestation: I reviewed the patient's lab results. 02/06/25 15:23 02/06/25 14:32 Labs: Lab Results 02/06/25 02/06/25 Range/Units 14:32 15:23 WBC 9.0 (4.5-10.0) K/mm3 RBC 3.79 L (4.2-5.4) M/mm3 Hgb 11.6 L (12.0-15.0) g/dL Hct 36.9 L (37.0-47.0) % MCV 97.4 (80-100) fl MCH 30.6 (26-34) pg MCHC 31.4 L (32-36) g/dl RDW 13.2 (11.5-14.5) % Plt Count 258 (150-375) k/mm3 MPV 10.1 (7.4-10.4) fl Immature Gran % (Auto) 0.9 H (0-0.5) % Neut % (Auto) 65.1 (45.5-73.1) % Lymph % (Auto) 21.4 (18.3-44.2) % [place] % (Auto) 7.0 (2.6-8.5) % Eos % (Auto) 5.0 H (0-4.4) % Baso % (Auto) 0.6 (0.2-1.2) % Lymph # (Auto) 1.92 (0.9-3.2) K/mm3 [place] # (Auto) 0.6 (0.1-0.6) K/mm3 Eos # (Auto) 0.5 H (0-0.3) K/mm3 Baso # (Auto) 0.1 (0.0-0.1) K/mm3 Abs Immat Gran (auto) 0.08 H (0.00-0.031) K/mm3 Absolute Neuts (auto) 5.9 (1.3-6.7) K/mm3 Absolute Nucleated RBC 0.000 (0.0-0.012) K/mm3 Nucleated RBC % 0.0 (0.0-0.2) % Sodium 139 (137-145) mmol/L Potassium 3.7 (3.4-5.0) mmol/L Chloride 104 (98-107) mmol/L Carbon Dioxide 26 (22-30) mmol/L Anion Gap 9 (4-12) mmol/L BUN 6 L (7-17) mg/dL Creatinine 0.90 (0.7-1.0) mg/dL Estim Creat Clear Calc 59 ml/min Estimated GFR > 60 (59 - ) Glucose 112 H (65-110) mg/dL Calcium 9.4 (8.4-10.2) mg/dL Total Bilirubin 0.5 (0.2-1.3) mg/dL AST 26 (14-36) U/L ALT 19 (6-35) U/L Alkaline Phosphatase 60 (38-126) U/L Total Protein 6.9 (6.3-8.2) g/dL Albumin 4.2 (3.5-5.1) g/dL Imaging Data Radiologist's impression: ITS Impressions Chest X-Ray 02/06/25 15:32 IMPRESSION: Mild pulmonary vascular congestion with elevation of the right hemidiaphragm and adjacent compressive atelectasis ECG Data EKG #1: ECG completion date: 02/06/25 ECG completion time: 14:40 EKG Interpretation: normal rate (98), sinus rhythm, no ectopy, no ST changes and normal QRS Discharge Plan Discharge Clinical Impression: Anxiety Chronic obstructive pulmonary disease Qualifiers: COPD type: COPD with acute exacerbation Qualified Code(s): J44.1 - Chronic obstructive pulmonary disease with (acute) exacerbation Patient Disposition: Home Condition: Stable Instructions: COPD (Chronic Obstructive Pulmonary Disease) (DC), Anxiety (ED) Patient Language: East Timorese Prescriptions: New doxycycline hyclate 100 mg capsule 100 mg PO BID Qty: 14 0RF lorazepam [Ativan] 1 mg tablet 1 mg PO TID PRN (Reason: anxiety) Qty: 14 0RF prednisone 20 mg tablet 20 mg PO BID Qty: 14 0RF No Action Incruse Ellipta 62.5 mcg/actuation blister with device 1 inh INHALATION DAILY nitroglycerin [Nitrostat] 0.4 mg Tablet, Sublingual 0.4 mg sublingual Q5MIN PRN (Reason: Chest Pain) Qty: 10 0RF Patient Comments: has not had to admin nicotine [Nicoderm CQ] 21 mg/24 hr Patch 24 Hour 1 patch transdermal DAILY Qty: 14 0RF aspirin [Children's Aspirin] 81 mg Tablet,Chewable 81 mg PO DAILY@0800 Qty: 30 0RF rosuvastatin 20 mg Tablet 20 mg PO EVENING Qty: 30 0RF levalbuterol HCl 1.25 mg/3 mL solution for nebulization 1.25 mg inhalation Q4H PRN (Reason: shortness of breath or wheezing) Qty: 72 0RF buspirone 10 mg Tablet 10 mg PO Q8H Qty: 90 0RF diltiazem HCl [Cartia XT] 180 mg capsule,extended release 24hr 180 mg PO DAILY Qty: 30 0RF fluticasone propion-salmeterol 115-21 mcg/actuation HFA aerosol inhaler 2 puff INHALATION Q12H prednisone 10 mg tablet 10 mg PO DAILY Qty: 30 0RF Rx Instructions: Take 40mg daily for 3 days Take 30mg Daily for 3 days Take 20mg Daily for 3 days Take 10mg Daily For 3 days hydroxyzine pamoate 25 mg capsule 25 mg PO TID PRN (Reason: anxiety) Qty: 90 0RF nicotine (polacrilex) [Nicorette] 4 mg gum 4 mg buccal Q2H Qty: 50 0RF prednisone 50 mg tablet 50 mg PO DAILY Qty: 5 0RF sulfamethoxazole-trimethoprim 800-160 mg tablet 1 tablet PO Q12H Qty: 14 0RF doxycycline monohydrate 100 mg tablet 100 mg PO BID 5 Days Qty: 10 0RF prednisone 50 mg tablet 50 mg PO DAILY Qty: 5 0RF amoxicillin-pot clavulanate 875-125 mg tablet 1 tablet PO Q12H 5 Days Qty: 10 0RF Follow-up/Referrals: José Miguel,MD Parish [Primary Care Provider] -
[2025-02-06] MEDS: LORazepam INJ (*CRX) 2 MG/ML VIAL 0.5 MG IV PUSH (19:23)
== END 2025-02-06 19:38 | disposition home or self-care (01) ==
PROVIDERS: Emergency Provider Family Medicine; PCP Internal Medicine
DX: F41.9 Anxiety disorder, unspecified (principal); J44.1 Chronic obstructive pulmonary disease with (acute) exacerbation; F17.210 Nicotine dependence, cigarettes, uncomplicated; I25.10 Atherosclerotic heart disease of native coronary artery without angina pectoris
CPT/HCPCS: 36415; 71046; 80053; 85025; 93005; 94640; 96374; 96375; 99284; J2060; J2919

== ENCOUNTER 2025-03-01 04:24 | Emergency (ER) | payer OTHER, SELFPAY ==
[2025-03-01] VITALS (14 sets, daily range): BP systolic 107–133; BP diastolic 58–92; PULSE 91–106; RESP 19–25; TEMP 36.6; O2SAT 88–96
--- NOTE | ~2025-03-01 | XR_ITS ---
Portable chest x-ray Comparison: 02/06/2025 Clinical History: Shortness of breath Findings: Lungs are clear, without focal consolidation or pleural effusion. Cardiomediastinal silhouette is stable. Bones and soft tissues are unremarkable. Impression: Clear lungs. Reviewed, dictated and finalized at location . Impression: Clear lungs.
--- NOTE | 2025-03-01 04:35 | ECG_ITS ---
Test Date: 2025-03-01 04:34:10 Measurements Intervals [place] Rate: 94 P: 66 OK: 137 QRS: 66 QRSD: 72 T: 58 QT: 332 QTc: 417 Interpretive Statements SINUS RHYTHM MINIMAL Q WAVES- INFERIOR LEADS BASELINE ARTIFACT- I, II, III, AVR, AVL, AVF, V1-V6 BORDERLINE ECG Compared to ECG 02/06/2025 14:40:44 NO SIGNIFICANT CHANGE Electronically Signed On 03-01-2025 06:18:41 CDT by Amrit Toussaint D.O.
--- NOTE | 2025-03-01 04:40 | ED_ITS ---
HPI - General Adult General Chief complaint: Shortness of Breath/Dyspnea Stated complaint: difficulty breating Time Seen by Provider: 03/01/25 04:30 History of Present Illness HPI narrative: [age] female with history of COPD that continues to smoke presented to the emergency department for evaluation for worsening shortness of breath that started last night. Patient states she is normally on 2 L of oxygen with ambulation and sometimes no oxygen at rest. Patient has been using her oxygen more frequently yesterday. Patient states she when out in the evening and the heat did bother her breathing and she states she was not able to recover. patient did a breathing treatment at home. Patient had to breathing treatments by EMS. Upon arrival emergency department patient was 96% on her normal 2 L but did have increased work of breathing. Related Data Home Medications ?Medication ?Instructions ?Recorded ?Confirmed ?Last Taken ?Type umeclidinium 62.5 mcg/actuation 1 inh inhalation DAILY 10/26/23 03/01/25 12/06/24 History blister powder for inhalation (Incruse Ellipta) fluticasone propionate 115 2 puff inhalation Q12H 11/1103/01/25 12/05/24 History mcg-salmeterol 21 mcg/actuation HFA inhaler hydroxyzine pamoate 25 mg capsule 25 mg PO TID anxiety 03/01/25 03/01/25 Unknown History Allergies Allergy/AdvReac Type Severity Reaction Status Date / Time codeine AdvReac Itching Verified 03/01/25 04:38 Review of Systems 2 Review of Systems: All systems reviewed & are unremarkable except as noted in HPI and below PMFSH Past Medical History Medical History Tobacco abuse Chronic obstructive pulmonary disease Coronary artery disease (10/2023) Nuclear stress test showed a large, severe non reversible infarcts including multiple meyers of the apex and mid anterior and mid posterior segments consistent with infarct with no reversible ischemia. Surgical History Surgical History History of section Family History Family History Mother Cerebrovascular accident Sibling FH: CABG (coronary artery bypass surgery) Father Stented coronary artery Social History Social History Social History: Surrogate medical decision maker: Meghan Babcock, daughter. Code status: Full code. Smoking packs per day: 0.25 Smoking cigarettes per day: 5.0 Years smoked: 40 Smoking pack-years: 10.00 Smoking status: Current some day smoker Tobacco type: cigarettes Second hand tobacco smoke exposure: Yes Alcohol intake: former Drinks per week: 28 Substance use: never Substance use type: does not use Last use: 10/11/24 Do You Feel Safe in your Home?: Yes Lack of Transportation: No Lack of Food: Never True Current Housing: I Have Housing Concerned About Future Housing: No Difficulty Paying Gas/Electric Bills: No Difficulty Paying for Meds: No Currently Unemployed: No Education: High School Diploma/GED Difficulty w/ Childcare or Family Care: No Living arrangements: with family Spiritual care concerns: No Exam 2 Narrative: APPEARANCE: increased work of breathing HEAD: normocephalic, atraumatic. EYES: PERRLA/EOMI, conjunctivae clear. NOSE: Normal no drainage EARS:TMS clear with good light reflex. THROAT: Pharynx clear, no exudate. NECK: Supple. No adenopathy, no masses. RESPIRATORY: expiratory wheeze CARDIOVASCULAR: Regular rate and rhythm without murmurs rubs or gallops. ABDOMINAL: Soft, nontender, nondistended, normal bowel sounds MUSCULOSKELETAL: Moves all extremities. Strength/ROM intact, No edema, No calf tenderness. NEURO: Alert. Cranial nerves II through XII intact. Good gait. Good coordination SKIN: Warm, dry. Normal Color Course Vital Signs Vital signs: Vital Signs Temperature 97.9 F 03/01/25 04:26 Pulse Rate 106 H 03/01/25 04:26 Respiratory Rate 20 03/01/25 04:26 Blood Pressure 132/58 L 03/01/25 04:26 Pulse Oximetry 96 03/01/25 04:26 Oxygen Delivery Nasal Cannula 03/01/25 04:26 Oxygen Flow Rate 2 03/01/25 04:26 Temperature 97.9 F 03/01/25 04:26 Pulse Rate 105 H 03/01/25 06:02 Respiratory Rate 21 H 03/01/25 06:02 Blood Pressure 107/80 03/01/25 06:02 Pulse Oximetry 95 03/01/25 06:02 Oxygen Delivery Nasal Cannula 03/01/25 05:00 Oxygen Flow Rate 2 03/01/25 05:00 Fraction of Inspired Oxygen 28 03/01/25 05:00 Medical Decision Making MDM Narrative Medical decision making narrative: 64 old female presents emergency department for evaluation for increased work of breathing. patient is currently afebrile but does have a leukocytosis of 13.3 and hemoglobin of 13.9. Patient does have a mild TONYA with creatinine of 1.27. Chest x-ray shows no acute cardiopulmonary abnormality. Patient was treated with IV Solu-Medrol along with 5 mg of nebulized albuterol and patient reports she does feel improved with treatment. Patient does still have some expiratory wheeze and does have some increased work of breathing but patient is breathing much easier. Patient was offered admission for a COPD exacerbation but patient strongly prefers to be discharged home. Patient was updated on reasons to return to the emergency department. All questions concerns were addressed. Patient is currently still on doxycycline and patient will be on a short burst of steroids started emergency department. Differential Diagnosis Differential Diagnosis: pneumonia, COPD, COVID, RSV, influenza, asthma Vital Signs Vital Signs: Vital Signs Temperature 97.9 F 03/01/25 04:26 Pulse Rate 106 H 03/01/25 04:26 Respiratory Rate 20 03/01/25 04:26 Blood Pressure 132/58 L 03/01/25 04:26 Pulse Oximetry 96 03/01/25 04:26 Oxygen Delivery Nasal Cannula 03/01/25 04:26 Oxygen Flow Rate 2 03/01/25 04:26 Temperature 97.9 F 03/01/25 04:26 Pulse Rate 105 H 03/01/25 06:02 Respiratory Rate 21 H 03/01/25 06:02 Blood Pressure 107/80 03/01/25 06:02 Pulse Oximetry 95 03/01/25 06:02 Oxygen Delivery Nasal Cannula 03/01/25 05:00 Oxygen Flow Rate 2 03/01/25 05:00 Fraction of Inspired Oxygen 28 03/01/25 05:00 Lab Data Lab results reviewed: Yes I reviewed the patient's lab results. 03/01/25 04:43 03/01/25 04:43 Labs: Lab Results 03/01/25 Range/Units 04:43 WBC 13.3 H (4.5-10.0) K/mm3 RBC 4.62 (4.2-5.4) M/mm3 Hgb 13.9 (12.0-15.0) g/dL Hct 44.0 (37.0-47.0) % MCV 95.2 (80-100) fl MCH 30.1 (26-34) pg MCHC 31.6 L (32-36) g/dl RDW 13.2 (11.5-14.5) % Plt Count 311 (150-375) k/mm3 MPV 10.3 (7.4-10.4) fl Immature Gran % (Auto) 0.6 H (0-0.5) % Neut % (Auto) 55.0 (45.5-73.1) % Lymph % (Auto) 34.3 (18.3-44.2) % [place] % (Auto) 6.8 (2.6-8.5) % Eos % (Auto) 2.6 (0-4.4) % Baso % (Auto) 0.7 (0.2-1.2) % Lymph # (Auto) 4.55 H (0.9-3.2) K/mm3 [place] # (Auto) 0.9 H (0.1-0.6) K/mm3 Eos # (Auto) 0.4 H (0-0.3) K/mm3 Baso # (Auto) 0.1 (0.0-0.1) K/mm3 Abs Immat Gran (auto) 0.08 H (0.00-0.031) K/mm3 Absolute Neuts (auto) 7.3 H (1.3-6.7) K/mm3 Absolute Nucleated RBC 0.000 (0.0-0.012) K/mm3 Nucleated RBC % 0.0 (0.0-0.2) % Sodium 139 (137-145) mmol/L Potassium 3.6 (3.4-5.0) mmol/L Chloride 103 (98-107) mmol/L Carbon Dioxide 26 (22-30) mmol/L Anion Gap 10 (4-12) mmol/L BUN 20 H D (7-17) mg/dL Creatinine 1.27 H (0.7-1.0) mg/dL Estim Creat Clear Calc 43 ml/min Estimated GFR 42 L (59 - ) Glucose 107 (65-110) mg/dL Calcium 9.5 (8.4-10.2) mg/dL Total Bilirubin 0.5 (0.2-1.3) mg/dL AST 28 (14-36) U/L ALT 24 (6-35) U/L Alkaline Phosphatase 67 (38-126) U/L Total Protein 6.9 (6.3-8.2) g/dL Albumin 4.4 (3.5-5.1) g/dL Imaging Data Radiologist's impression: Impressions Chest X-Ray 03/01/25 06:12 Impression: Clear lungs. Discharge Plan Discharge Clinical Impression: Chronic obstructive pulmonary disease Qualifiers: COPD type: COPD with acute exacerbation Qualified Code(s): J44.1 - Chronic obstructive pulmonary disease with (acute) exacerbation Patient Disposition: Home Condition: Stable Instructions: Antibiotic Form Additional Instructions: You were offered admission for your COPD exacerbation but you declined and preferred to be discharged home. Please continue to work hard at quitting smoking. Continue your antibiotics and until completed. Prednisone burst as directed. Have close follow-up with your primary care physician. If you have worsening symptoms then please call or return to the emergency department. Patient Language: Kiswahili Prescriptions: New prednisone 50 mg tablet 50 mg PO DAILY 5 Days Qty: 5 0RF No Action Incruse Ellipta 62.5 mcg/actuation blister with device 1 inh INHALATION DAILY nitroglycerin [Nitrostat] 0.4 mg Tablet, Sublingual 0.4 mg sublingual Q5MIN PRN (Reason: Chest Pain) Qty: 10 0RF Patient Comments: has not had to admin nicotine [Nicoderm CQ] 21 mg/24 hr Patch 24 Hour 1 patch transdermal DAILY Qty: 14 0RF aspirin [Children's Aspirin] 81 mg Tablet,Chewable 81 mg PO DAILY@0800 Qty: 30 0RF rosuvastatin 20 mg Tablet 20 mg PO EVENING Qty: 30 0RF levalbuterol HCl 1.25 mg/3 mL solution for nebulization 1.25 mg inhalation Q4H PRN (Reason: shortness of breath or wheezing) Qty: 72 0RF buspirone 10 mg Tablet 10 mg PO Q8H Qty: 90 0RF diltiazem HCl [Cartia XT] 180 mg capsule,extended release 24hr 180 mg PO DAILY Qty: 30 0RF fluticasone propion-salmeterol 115-21 mcg/actuation HFA aerosol inhaler 2 puff INHALATION Q12H nicotine (polacrilex) [Nicorette] 4 mg gum 4 mg buccal Q2H Qty: 50 0RF doxycycline monohydrate 100 mg tablet 100 mg PO BID 5 Days Qty: 10 0RF lorazepam [Ativan] 1 mg tablet 1 mg PO TID PRN (Reason: anxiety) Qty: 14 0RF hydroxyzine pamoate 25 mg capsule 25 mg PO TID Follow-up/Referrals: José Miguel,MD Parish [Primary Care Provider]
[2025-03-01] MEDS: ALBUTEROL SULFATE NEB 2.5 MG/3 ML INH 5 MG INHALATION (04:47)
[2025-03-01 04:57] LABS: Hematocrit 44.0 % (37.0-47.0); Hemoglobin 13.9 g/dL (12.0-15.0); Immature Granulocyte Percent A 0.6 % (0-0.5); Lymphocytes Absolute Auto 4.55 K/mm3 (0.9-3.2); Mean Corpuscular HGB Conc 31.6 g/dl (32-36); Mean Corpuscular Hemoglobin 30.1 pg (26-34); Mean Corpuscular Volume 95.2 fl (80-100); Nucleated Red Blood Cells Absolute Auto 0.000 K/mm3 (0.0-0.012); Nucleated Red Blood Cells Perc 0.0 % (0.0-0.2); Platelet Count Result 311 k/mm3 (150-375); Red Blood Count 4.62 M/mm3 (4.2-5.4); White Blood Count 13.3 K/mm3 (4.5-10.0)
[2025-03-01 05:05] LABS: Alanine Aminotransferase 24 U/L (6-35); Albumin Level 4.4 g/dL (3.5-5.1); Alkaline Phosphatase 67 U/L (38-126); Anion Gap 10 mmol/L (4-12); Aspartate Amino Transferase 28 U/L (14-36); Bilirubin,Total 0.5 mg/dL (0.2-1.3); Blood Urea Nitrogen 20 mg/dL (7-17); Calcium 9.5 mg/dL (8.4-10.2); Carbon Dioxide 26 mmol/L (22-30); Chloride 103 mmol/L (98-107); Estimated CRCL calculation 43 ml/min; Estimated Glomerular Filt Rate 42; Glucose 107 mg/dL (65-110); Potassium 3.6 mmol/L (3.4-5.0); Sodium 139 mmol/L (137-145); Total Protein 6.9 g/dL (6.3-8.2)
--- NOTE | 2025-03-01 06:05 | PC.NURSE ---
Pt daughter is bringing pt her oxygen tank for the ride home. Will discharge when pt daughter returns with the oxygen.
== END 2025-03-01 06:39 | disposition home or self-care (01) ==
PROVIDERS: Emergency Provider Emergency Medicine; PCP Internal Medicine
DX: J44.1 Chronic obstructive pulmonary disease with (acute) exacerbation (principal); Z99.81 Dependence on supplemental oxygen; I25.10 Atherosclerotic heart disease of native coronary artery without angina pectoris; F17.210 Nicotine dependence, cigarettes, uncomplicated; R94.31 Abnormal electrocardiogram [ECG] [EKG]
CPT/HCPCS: 36415; 71045; 80053; 85025; 93005; 94640; 96374; 99284; J2919; J7512

== ENCOUNTER 2025-04-03 08:20 | Observation (INO) | payer OTHER, SELFPAY ==
[2025-04-03] VITALS (20 sets, daily range): BP systolic 104–138; BP diastolic 60–73; PULSE 93–125; RESP 17–24; TEMP 36.3–36.9; O2SAT 87–100; BMI 31.8
--- NOTE | ~2025-04-03 | XR_ITS ---
Examination: XR chest 2V Clinical History: SOB Comparison: 03/01/2025 Technique: PA and Lateral Findings: Cardiomediastinal silhouette normal size and configuration. Lungs clear. No acute bony abnormality. Osteopenia. IMPRESSION: 1. No acute cardiopulmonary findings. Reviewed, dictated and finalized at location R.
--- NOTE | 2025-04-03 08:38 | ECG_ITS ---
Test Date: 2025-04-03 08:32:01 Measurements Intervals [place] Rate: 108 P: 60 MN: 158 QRS: 59 QRSD: 60 T: 57 QT: 296 QTc: 398 Interpretive Statements SINUS TACHYCARDIA LOW QRS VOLTAGE IN PRECORDIAL LEADS [QRS DEFLECTION < 1.0 mV IN CHEST LEADS] ABNORMAL RHYTHM ECG Compared to ECG 03/01/2025 04:34:10 Low QRS voltage now present Sinus rhythm no longer present Electronically Signed On 04-03-2025 14:31:57 CDT by Dylan Rosa M.D.
[2025-04-03 08:53] LABS: Hematocrit 45.5 % (37.0-47.0); Hemoglobin 13.9 g/dL (12.0-15.0); Immature Granulocyte Percent A 0.3 % (0-0.5); Lymphocytes Absolute Auto 2.49 K/mm3 (0.9-3.2); Mean Corpuscular HGB Conc 30.5 g/dl (32-36); Mean Corpuscular Hemoglobin 29.6 pg (26-34); Mean Corpuscular Volume 96.8 fl (80-100); Nucleated Red Blood Cells Absolute Auto 0.000 K/mm3 (0.0-0.012); Nucleated Red Blood Cells Perc 0.0 % (0.0-0.2); Platelet Count Result 277 k/mm3 (150-375); Red Blood Count 4.70 M/mm3 (4.2-5.4); White Blood Count 9.3 K/mm3 (4.5-10.0)
--- OUTSIDE RECORDS SUMMARY | 2025-04-03 08:53 | XMS_ITS | Clinical Summary ---
Author Organization [facility] Address [address] [place] [address] Care Team Providers Care Identification Technician Name Role Phone Ethan Cerrato Primary Care Provider + Source Comments [facility],non-owned Affiliates and Associated Physician Practices is amultiple site organization consisting of ambulatory clinics and hospital sitesin [place], [place], [place] and [place]. This disclosure is being madepursuant to the Care Everywhere program and may not contain all information available regarding this patient. Last updated 18.[facility] Allergies No known active allergies Medications * [...] on file Legal Sex Female 8:53 AM MACHINERY RIGGER Gender Identity Not on file Sexual Orientation Not on file Last Filed Vital Signs Vital Sign Reading Time Taken Comments Blood Pressure 122/80 07/25/2017 10:47 AM MACHINERY RIGGER Pulse 80 07/25/2017 10:47 AM MACHINERY RIGGER Temperature 36.8 C (98.2 F) 07/25/2017 10:47 AM MACHINERY RIGGER Respiratory Rate 20 07/25/2017 10:47 AM MACHINERY RIGGER Oxygen Saturation 94% 07/25/2017 10:47 AM MACHINERY RIGGER Inhaled Oxygen Concentration - - Weight 74.8 kg (165 lb) 07/25/2017 10:47 AM MACHINERY RIGGER Height 160 cm (5' 3) 07/25/2017 10:47 AM MACHINERY RIGGER Body Mass Index 29.23 07/25/2017 10:47 AM MACHINERY RIGGER Plan of Treatment Health Maintenance Due Date [...] of 2) 2010 SCREENING FOR DIABETES 07/25/2017 DEPRESSION SCREENING 07/13/2024 COVID-19 VACCINE ( - 2023-2 5 season) 2025 INFLUENZA VACCINE (#1) 2025 Respiratory Syncytial Virus [...] Insurance [facility] Care Teams Identification Technician Relationship Specialty Start Date End Date Ethan Cerrato PA [address] [place] [address] PCP - General Physician Nurse Office 07/25/17
[2025-04-03 09:06] LABS: Alanine Aminotransferase 18 U/L (6-35); Albumin Level 4.2 g/dL (3.5-5.1); Alkaline Phosphatase 72 U/L (38-126); Anion Gap 6 mmol/L (4-12); Aspartate Amino Transferase 29 U/L (14-36); Bilirubin,Total 0.5 mg/dL (0.2-1.3); Blood Urea Nitrogen 6 mg/dL (7-17); Calcium 9.3 mg/dL (8.4-10.2); Carbon Dioxide 29 mmol/L (22-30); Chloride 105 mmol/L (98-107); Estimated CRCL calculation 58 ml/min; Estimated Glomerular Filt Rate > 60; Glucose 108 mg/dL (65-110); Potassium 4.1 mmol/L (3.4-5.0); Sodium 140 mmol/L (137-145); Total Protein 7.2 g/dL (6.3-8.2)
--- OUTSIDE RECORDS SUMMARY | 2025-04-03 09:06 | XMS_ITS | Encounter Summary ---
Author Organization [facility] Healthcare Address [address] [place] [address] Care Team Providers Care Volleyball Assembler Name Role Phone Parish Valdez MD Primary Care Provider [phone] Encounter Details Date Type Department Care Team (Late st Contact Info) Description 11/28/2024 Orders Only [facility] Health Information Management [address] [place] [id number] Cooper Mathias MD [address] [facility] [address] [facility] [place] [address] Social History Tobacco Use Types Packs/Day Years [...] Other us Cooper Mathias MD Edited Re sult - Final documented in this encounter Visit Diagnoses Not on filedocumented in this encounter Care Teams Volleyball Assembler Relationship Specialty Start Date End Date Parish Valdez MD PCP - General Internal Medicine 01/01/24 documented as of this encounter
--- OUTSIDE RECORDS SUMMARY | 2025-04-03 09:06 | XMS_ITS | Encounter Summary ---
Author Organization [facility] Healthcare Address [address] [place] [address] Care Team Providers Care Sharepoint Designer Developer Name Role Phone Parish Valdez MD Primary Care Provider [phone] Encounter Details Date Type Department Care Team (Late st Contact Info) Description 12/06/2024 Orders Only [facility] Health Information Management [address] [place] [id number] Scanning, Provider Social History Tobacco Use Types [...] on filedocumented in this encounter Care Teams Sharepoint Designer Developer Relationship Specialty Start Date End Date Parish Valdez MD PCP - General Internal Medicine 6/21/24 documented as of this encounter
--- OUTSIDE RECORDS SUMMARY | 2025-04-03 09:06 | XMS_ITS | Clinical Summary ---
Author Organization [facility] [address] Address [address] [place] [address] Care Team Providers Care Cattle Farmer Name Role Phone Parish Valdez MD Primary Care Provider [phone] Allergies Active Allergy Reactions Criticality Noted Date Comments Codeine Itching Low 11/27/2023 Medications aspirin 81 mg enteric coated tablet Take 1 tablet (81 mg total) by mouth every morning 10/28/19 24 Active nitroglycerin (NITROSTAT) 0.4 mg SL tablet DISSOLVE 1 TABLET UNDER THE TONGUE EVERY 5 MINUTES FOR 3 DOSES NEEDED FOR CHEST PAIN 10/28/19 24 Active doxycycline 100 mg tablet Take 1 tablet/capsul e (100 mg total) by mouth every 12 (twelve) hours 11/18/19 24 Active Advair HFA 115-21 mcg/actuation inhaler INHALE TWO PUFFS BY MOUTH EVERY TWELVE HOURS FOR BREATHING 11/12/19 24 Active Incruse Ellipta 62.5 mcg/actuation blister with device Inhale 1 puff (62.5 mcg total) daily 11/13/19 24 Active albuterol HFA (PROVENTIL HFA,VENTOLIN HFA,PROAIR HFA) 90 mcg/actuation inhaler INHALE 2 PUFFS BY MOUTH THREE TIMES DAILY FOR 10 DAYS NEEDED Active budesonide-for moteroL (SYMBICORT) 160-4.5 mcg/actuation inhaler INHALE 2 PUFFS BY MOUTH TWICE DAILY. RINSE MOUTH AFTER USE Active hydrOXYzine (VISTARIL) 25 mg capsule TAKE 1 CAPSULE BY MOUTH THREE TIMES DAILY NEEDED FOR ANXIETY 12/08/19 25 Active dilTIAZem XR (dilTIAZem CD) 180 mg 24 hr capsule TAKE 1 CAPSULE(180 MG) BY MOUTH DAILY 90 capsule 2 03/28/20 25 Active rosuvastatin (CRESTOR) 20 mg tablet TAKE 1 TABLET(20 MG) BY MOUTH EVERY NIGHT 90 tablet 2 03/28/20 25 Active rosuvastatin (CRESTOR) 20 mg tablet Take 1 tablet (20 mg total) by mouth nightly 90 tablet 12/30/19 025 Discontinued dilTIAZem CD 180 mg 24 hr capsule Take 1 capsule (180 mg total) by mouth daily 90 capsule 12/30/19 025 Discontinued Active Problems Problem Noted Date Diagnosed Date Hospital discharge follow-up 01/20/2025 Coronary artery disease invo lving [place] coronary artery of [place] heart without angina pectoris 01/20/2025 Atrial tachycardia 01/20/2025 Encounters Date Type Department Care Team Description 01/20/2025 10:30 AM CDT Office Visit [facility] [address] [place] [address] Veronika Kim NP Hospital discharge follow-up (Primary Dx); Coronary artery disease involving [place] coronary artery of [place] heart without angina pectoris; Atrial tachycardia from Last 3 Months Medical History Medical History Date Comments Past heart attack COPD (chronic obstructive pulmonary disease) Family History Medical History Relation Name Comments [...] 1:56 PM CDT Coronary artery disease involving [place] coronary artery of [place] heart without angina pectoris from Last 3 Months Results * Electrocardiogram [...] Capillary blood 01/20/2025 1 :56 PM CDT us Veronika Kim STUDENT [place]AN POINT OF CARE TEST ORDERABLE S Final Result from Last [address] [place] [address] Care Teams Cattle Farmer Relationship Specialty Start Date End Date Parish Valdez MD PCP - General Internal Medicine 01/01/24
[2025-04-03] MEDS: ALBUTEROL SULFATE NEB 2.5 MG/3 ML INH 10 MG INHALATION (09:20)
[2025-04-03] MEDS: IPRATROPIUM BR 0.02% INH SOLN 0.5 MG/2.5 ML VIAL 1 MG INHALATION (09:20)
--- NOTE | 2025-04-03 10:47 | ED.GENADULT ---
HPI - General Adult General Chief complaint: Shortness of Breath/Dyspnea Stated complaint: SOB since Thursday. Hx COPD Time Seen by Provider: 04/03/25 08:25 History of Present Illness HPI narrative: Patient is a 64-year-old female with history of COPD who presents ER with shortness of breath. Ongoing for 2 days. She has been using her nebulizer treatments at home without improvement. She uses of albuterol. No fevers or chills or sweats. She has had some productive cough. No chest pain. Related Data Home Medications ?Medication ?Instructions ?Recorded ?Confirmed ?Last Taken ?Type umeclidinium 62.5 mcg/actuation 1 inh inhalation DAILY 10/26/23 04/03/25 04/02/25 History blister powder for inhalation (Incruse Ellipta) fluticasone propionate 115 2 puff inhalation Q12H 12/06/24 04/03/25 04/02/25 History mcg-salmeterol 21 mcg/actuation HFA inhaler albuterol sulfate 2.5 mg/3 mL mg 04/03/25 04/02/25 History (0.083 %) solution for nebulization albuterol sulfate 90 mcg/actuation inhalation 04/03/25 04/02/25 History aerosol inhaler Allergies Allergy/AdvReac Type Severity Reaction Status Date / Time codeine AdvReac Itching Verified 03/01/25 04:38 Review of Systems Review of Systems: All systems reviewed & are unremarkable except as noted in HPI and below Constitutional: Constitutional: Reports no additional constitutional complaints ENT: Reports system reviewed and no additional complaints, except as documented Cardiovascular: Cardiovascular: Reports no additional cardiovascular complaints Respiratory: Respiratory: Reports no additional respiratory complaints [facility] Past Medical History Medical History Anxiety Asthma Coronary artery disease (10/2023) Nuclear stress test showed a large, severe non reversible infarcts including multiple meyers of the apex and mid anterior and mid posterior segments consistent with infarct with no reversible ischemia. Tobacco abuse Chronic obstructive pulmonary disease Surgical History Surgical History History of cholecystectomy History of section Family History Family History Mother Cerebrovascular accident Sibling FH: CABG (coronary artery bypass surgery) Father Stented coronary artery Social History Social History Social History: Surrogate medical decision maker: Meghan Babcock, daughter. Code status: Full code. Smoking packs per day: 0.25 Smoking cigarettes per day: 5.0 Years smoked: 47 Smoking pack-years: 11.75 Smoking status: Current every day smoker Tobacco type: cigarettes Second hand tobacco smoke exposure: No Alcohol intake: former Drinks per week: 28 Substance use: never Substance use type: does not use Last use: 10/11/24 Do You Feel Safe in your Home?: Yes Lack of Transportation: No Lack of Food: Never True Current Housing: I Have Housing Concerned About Future Housing: No Difficulty Paying Gas/Electric Bills: No Difficulty Paying for Meds: No Currently Unemployed: No Education: High School Diploma/GED Difficulty w/ Childcare or Family Care: No Living arrangements: with family Spiritual care concerns: No Exam Narrative: GENERAL: Well-appearing, well-nourished, and in no acute distress. HEAD: Normocephalic, atraumatic.. ENT: Mucous membranes moist. CHEST: Diffuse expiratory wheezing. No respiratory distress. HEART: Regular rate and rhythm. Normal peripheral pulses. EXTREMITIES: Normal range of motion. No edema. SKIN: Warm, dry, no rash. NEURO: Alert and oriented x3. PSYCH: Normal mood and affect. Course Course Emergency Course: Patient with hypoxia of 84% and heart rate up into the 140s with walking. Recommend admit for observation. Patient verbalized understanding but very hesitant. Vital Signs Vital signs: Vital Signs Temperature 97.7 F 04/03/25 08:29 Pulse Rate 113 H 04/03/25 08:29 Respiratory Rate 22 H 04/03/25 08:29 Blood Pressure 105/73 04/03/25 08:29 Pulse Oximetry 98 04/03/25 08:29 Oxygen Delivery Room Air 04/03/25 08:29 Temperature 97.4 F L 04/03/25 14:38 Pulse Rate 99 04/03/25 15:54 Respiratory Rate 18 04/03/25 15:54 Blood Pressure 111/70 04/03/25 14:38 Pulse Oximetry 92 04/03/25 14:38 Oxygen Delivery Room Air 04/03/25 09:25 Medical Decision Making Vital Signs Vital Signs: Vital Signs Temperature 97.7 F 04/03/25 08:29 Pulse Rate 113 H 04/03/25 08:29 Respiratory Rate 22 H 04/03/25 08:29 Blood Pressure 105/73 04/03/25 08:29 Pulse Oximetry 98 04/03/25 08:29 Oxygen Delivery Room Air 04/03/25 08:29 Temperature 97.4 F L 04/03/25 14:38 Pulse Rate 99 04/03/25 15:54 Respiratory Rate 18 04/03/25 15:54 Blood Pressure 111/70 04/03/25 14:38 Pulse Oximetry 92 04/03/25 14:38 Oxygen Delivery Room Air 04/03/25 09:25 Lab Data 04/03/25 08:44 04/03/25 08:44 Labs: Lab Results 04/03/25 Range/Units 08:44 WBC 9.3 (4.5-10.0) K/mm3 RBC 4.70 (4.2-5.4) M/mm3 Hgb 13.9 (12.0-15.0) g/dL Hct 45.5 (37.0-47.0) % MCV 96.8 (80-100) fl MCH 29.6 (26-34) pg MCHC 30.5 L (32-36) g/dl RDW 13.4 (11.5-14.5) % Plt Count 277 (150-375) k/mm3 MPV 10.5 H (7.4-10.4) fl Immature Gran % (Auto) 0.3 (0-0.5) % Neut % (Auto) 63.7 (45.5-73.1) % Lymph % (Auto) 26.7 (18.3-44.2) % [place] % (Auto) 5.9 (2.6-8.5) % Eos % (Auto) 2.4 (0-4.4) % Baso % (Auto) 1.0 (0.2-1.2) % Lymph # (Auto) 2.49 (0.9-3.2) K/mm3 [place] # (Auto) 0.6 (0.1-0.6) K/mm3 Eos # (Auto) 0.2 (0-0.3) K/mm3 Baso # (Auto) 0.1 (0.0-0.1) K/mm3 Abs Immat Gran (auto) 0.03 (0.00-0.031) K/mm3 Absolute Neuts (auto) 5.9 (1.3-6.7) K/mm3 Absolute Nucleated RBC 0.000 (0.0-0.012) K/mm3 Nucleated RBC % 0.0 (0.0-0.2) % Sodium 140 (137-145) mmol/L Potassium 4.1 (3.4-5.0) mmol/L Chloride 105 (98-107) mmol/L Carbon Dioxide 29 (22-30) mmol/L Anion Gap 6 (4-12) mmol/L BUN 6 L D (7-17) mg/dL Creatinine 0.92 (0.7-1.0) mg/dL Estim Creat Clear Calc 58 ml/min Estimated GFR > 60 (59 - ) Glucose 108 (65-110) mg/dL Calcium 9.3 (8.4-10.2) mg/dL Total Bilirubin 0.5 (0.2-1.3) mg/dL AST 29 (14-36) U/L ALT 18 (6-35) U/L Alkaline Phosphatase 72 (38-126) U/L Total Protein 7.2 (6.3-8.2) g/dL Albumin 4.2 (3.5-5.1) g/dL Imaging Data Radiologist's impression: ITS Impressions Chest X-Ray 04/03/25 11:12 IMPRESSION: 1. No acute cardiopulmonary findings. Critical Care Time Critical Care Time Critical Care Time: Yes Total Critical Care Time: 35 Discharge Plan Discharge Clinical Impression: COPD exacerbation Patient Disposition: Still a Patient Condition: Guarded Prognosis
--- NOTE | 2025-04-03 12:50 | PM.IMHP ---
H&P: HPI History of Present Illness Date/Time: 04/03/25 12:50 Chief Complaint: Shortness of Breath Narrative: 64 y/o F with PMH of COPD, asthma, CAD, and tobacco use presents here with shortness of breath. The patient presents here from home on 04/03 for further evaluation of shortness of breath. She reports onset on Thursday (04/01) evening, has been a gradual onset. 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 She reports she has been utilizing her home albuterol inhaler and neb with only partial relief. She reports associated productive cough. Denies fever, chills, body aches, nausea, vomiting or diarrhea. She has a history significant for COPD, asthma, and current tobacco use. Less than 0.5 PPD x50 years. The patient was treated in the ED with IV steroids and nebulizers, no hypoxia noted at rest however she dropped into the 80s with ambulation. She does/does not require supplemental O2 at baseline. Chart reviewed, patient has been seen at [facility] ED on 01/08, 01/27, 02/06, and 03/01 for shortness of breath suspected to be secondary to a COPD exacerbation, however she improved with nebulizers in the ED and was discharged home on abx/steroids. Initial VS at presentation: 97.7? F, HR 113, R 22, 105/73, and 98% on RA. ED workup showed: No leukocytosis, no anemia, no significant electrolyte derangements, creatinine 0.92 and GFR >60, glucose 108. CXR showed no acute cardiopulmonary findings. Review of Systems Review of Systems: All systems reviewed & are unremarkable except as noted in HPI and below PMFSH Past Medical History Medical History Anxiety Asthma Coronary artery disease (10/2023) Nuclear stress test showed a large, severe non reversible infarcts including multiple meyers of the apex and mid anterior and mid posterior segments consistent with infarct with no reversible ischemia. Tobacco abuse Chronic obstructive pulmonary disease Surgical History Surgical History History of cholecystectomy History of section Family History Family History Mother Cerebrovascular accident Sibling FH: CABG (coronary artery bypass surgery) Father Stented coronary artery Social History Social History Social History: Surrogate medical decision maker: Meghan Babcock, daughter. Code status: Full code. Smoking packs per day: 0.25 Smoking cigarettes per day: 5.0 Years smoked: 47 Smoking pack-years: 11.75 Smoking status: Current every day smoker Tobacco type: cigarettes Second hand tobacco smoke exposure: No Alcohol intake: former Drinks per week: 28 Substance use: never Substance use type: does not use Last use: 10/11/24 Do You Feel Safe in your Home?: Yes Lack of Transportation: No Lack of Food: Never True Current Housing: I Have Housing Concerned About Future Housing: No Difficulty Paying Gas/Electric Bills: No Difficulty Paying for Meds: No Currently Unemployed: No Education: High School Diploma/GED Difficulty w/ Childcare or Family Care: No Living arrangements: with family Spiritual care concerns: No Meds Home Medications and Allergies Home Medications ?Medication ?Instructions ?Recorded ?Confirmed ?Type umeclidinium 62.5 mcg/actuation 1 inh inhalation DAILY 10/26/23 04/03/25 History blister powder for inhalation (Incruse Ellipta) aspirin 81 mg chewable tablet 81 mg PO DAILY@0800 #30 tabs 11/24/24 04/03/25 Rx (Children's Aspirin) nicotine 21 mg/24 hr daily 1 patch transdermal DAILY #14 ea 11/24/24 04/03/25 Rx transdermal patch (Nicoderm CQ) rosuvastatin 20 mg tablet 20 mg PO EVENING #30 tabs 11/24/24 04/03/25 Rx buspirone 10 mg tablet 10 mg PO Q8H #90 tabs 11/29/24 04/03/25 Rx diltiazem HCl 180 mg 180 mg PO DAILY #30 caps 11/29/24 04/03/25 Rx capsule,extended release 24 hr (Cartia XT) levalbuterol HCl 1.25 mg/3 mL 1.25 mg (3 mL) inhalation Q4H PRN 11/29/24 04/03/25 Rx solution for nebulization shortness of breath or wheezing #72 mL fluticasone propionate 115 2 puff inhalation Q12H 12/06/24 04/03/25 History mcg-salmeterol 21 mcg/actuation HFA inhaler albuterol sulfate 2.5 mg/3 mL 2.5 mg continuous nebulization Q8H 04/03/25 04/03/25 History (0.083 %) solution for nebulization PRN shortness of breath unrelieved by inhaler albuterol sulfate 90 mcg/actuation 1 inh inhalation QID PRN shortness 04/03/25 04/03/25 History aerosol inhaler of breath or wheezing Allergies Allergy/AdvReac Type Severity Reaction Status Date / Time codeine AdvReac Itching Verified 03/01/25 04:38 Vital Signs Vital Signs - 24 hr 04/03/25 08:29 04/03/25 08:29 04/03/25 09:20 Temperature 97.7 F Pulse Rate 113 H 100 Respiratory Rate 22 H 18 Blood Pressure 105/73 Pulse Oximetry 98 Oxygen Delivery Room Air Room Air 04/03/25 09:25 04/03/25 10:12 Temperature Pulse Rate 102 H Respiratory Rate 22 H Blood Pressure Pulse Oximetry 96 Oxygen Delivery Room Air Exam Const: General: comfortable and no acute distress Other: , female, nontoxic appearance HENMT: Face/Nose/Sinus: Normal nares present Mouth: Yes moist mucous membranes Eyes: General: appearance normal, both eyes and all related structures Sclera: sclerae normal Pupils: Equal, round and reactive pupils present EOM: EOMs intact bilaterally Resp: Effort & Inspection: normal respiratory effort Other: Significant wheezing bilaterally, no crackles appreciated. +cough. Cardio: Rate: regular rate Rhythm: regular rhythm Other: S1-S2 present without murmur, rub, ectopy GI: Other: Abdomen soft, nondistended, nontender. Normoactive bowel sounds in all quadrants. Skin: General skin exam: normal color and no rashes or lesions noted Wounds: no wounds Neuro: Speech: normal speech Motor exam (neuro): 5/5 motor strength present throughout Sensory Exam: normal sensation Other: A&O x4 Extrem: General: normal to inspection Psych: Mental Status: mental status grossly normal Affect: normal affect Other: Good insight and judgment, pleasant H&P: Results Labs Labs: Short CBC 04/03/25 Range/Units 08:44 WBC 9.3 (4.5-10.0) K/mm3 Hgb 13.9 (12.0-15.0) g/dL Hct 45.5 (37.0-47.0) % Plt Count 277 (150-375) k/mm3 BMP 04/03/25 08:44 Sodium 140 Potassium 4.1 Chloride 105 Carbon Dioxide 29 BUN 6 L D Creatinine 0.92 Glucose 108 Calcium 9.3 Liver Function 04/03/25 Range/Units 08:44 Total Bilirubin 0.5 (0.2-1.3) mg/dL AST 29 (14-36) U/L ALT 18 (6-35) U/L Alkaline Phosphatase 72 (38-126) U/L Albumin 4.2 (3.5-5.1) g/dL Assessment and Plan Assessment and plan (1) Acute exacerbation of chronic obstructive pulmonary disease: Code(s): J44.1 - Chronic obstructive pulmonary disease with (acute) exacerbation Status: Acute Assessment and Plan: - CXR showed no acute cardiopulmonary findings, reviewed image and agree with assessment - started on levalbuterol/ipratropium q.6h aury - started on methylprednisolone IV - reporting increased sputum production, no leukocytosis noted or pneumonia on CXR. 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 Has reduced from 1 to less than 0.5 daily (3) Anxiety: Code(s): F41.9 - Anxiety disorder, unspecified Status: Chronic Assessment and Plan: - continue home medication(s): BuSpar (4) CAD (coronary artery disease): Qualifiers: Associated angina: without angina Coronary Disease-Associated Artery/Lesion type: unspecified vessel or lesion type [place] vs. transplanted heart: [place] heart Qualified Code(s): I25.10 - Atherosclerotic heart disease of [place] coronary artery without angina pectoris Code(s): I25.10 - Atherosclerotic heart disease of [place] coronary artery without angina pectoris Status: Chronic Assessment and Plan: - denying chest pain - continue home medication(s): ASA 81 daily, statin Plan Diet: heart healthy GI Prophylaxis: n/a DVT Prophylaxis: SCDs IV fluids: LR 150 mL/hr x1L Lines/Tubes: peripheral IV Code Status: full code Quality VTE Prophylaxis VTE prophylaxis: mechanical ordered Hospitalist MIPS Advance Care Plan I have confirmed that the patient's Advanced Care Plan is present, code status is documented, or surrogate decision maker is listed in patient medical record.: Yes Medication Reconciliation I have utilized all available resources to obtain, update and review the patients current medications (includes all prescriptions, OTC, herbals, cannabis, and nutritional supplements).: Yes
[2025-04-03] MEDS: diazePAM INJ (*CRX) 10 MG/2 ML SYRINGE 5 MG IV PUSH (13:59)
--- OUTSIDE RECORDS SUMMARY | 2025-04-03 14:00 | XMS_ITS | Encounter Summary ---
Author Organization [facility] Healthcare Address [address] [place] [address] Care Team Providers Care Elevator Constructor Supervisor Name Role Phone Parish Valdez MD Primary Care Provider [phone] Encounter Details Date Type Department Care Team (Late st Contact Info) Description 12/06/2024 Orders Only [facility] [place] Management [address] [place] [id number] Scanning, Provider Social History Tobacco Use Types [...] on filedocumented in this encounter Care Teams Elevator Constructor Supervisor Relationship Specialty Start Date End Date Parish Valdez MD PCP - General Internal Medicine 6/21/24 documented as of this encounter
--- OUTSIDE RECORDS SUMMARY | 2025-04-03 14:00 | XMS_ITS | Clinical Summary ---
Author Organization [facility] Address [address] [place] [address] Care Team Providers Care Dental Laboratory Technician Apprentice Name Role Phone Ethan Cerrato Primary Care Provider + Source Comments [facility],non-owned Affiliates and Associated Physician Practices is amultiple site organization consisting of ambulatory clinics and hospital sitesin [place], [place], [place] and [place]. This disclosure is being madepursuant to the Care Everywhere program and may not contain all information available regarding this patient. Last updated 18.[facility] Allergies No known active allergies Medications * [...] on file Legal Sex Female 8:53 AM CLASSER Gender Identity Not on file Sexual Orientation Not on file Last Filed Vital Signs Vital Sign Reading Time Taken Comments Blood Pressure 122/80 07/25/2017 10:47 AM CLASSER Pulse 80 07/25/2017 10:47 AM CLASSER Temperature 36.8 C (98.2 F) 07/25/2017 10:47 AM CLASSER Respiratory Rate 20 07/25/2017 10:47 AM CLASSER Oxygen Saturation 94% 07/25/2017 10:47 AM CLASSER Inhaled Oxygen Concentration - - Weight 74.8 kg (165 lb) 07/25/2017 10:47 AM CLASSER Height 160 cm (5' 3) 07/25/2017 10:47 AM CLASSER Body Mass Index 29.23 07/25/2017 10:47 AM CLASSER Plan of Treatment Health Maintenance Due Date [...] patient's age to complete this topic Insurance [facility] Care Teams Dental Laboratory Technician Apprentice Relationship Specialty Start Date End Date Ethan Cerrato PA [address] [place] [address] PCP - General Physician Studio Coordinator 07/25/17
--- OUTSIDE RECORDS SUMMARY | 2025-04-03 14:00 | XMS_ITS | Clinical Summary ---
Author Organization [facility] [address] Address [address] [place] [address] Care Team Providers Care Metal Cnc Operator Name Role Phone Parish Valdez MD Primary Care Provider [phone] Allergies Active Allergy Reactions Criticality Noted Date [...] follow-up 01/20/2025 Coronary artery disease invo lving [place] coronary artery of [place] heart without angina pectoris 01/20/2025 Atrial tachycardia 01/20/2025 Encounters Date Type Department Care Team Description 01/20/2025 10:30 AM CDT Office Visit [facility] [address] [place] [address] Veronika Kim NP Hospital discharge follow-up (Primary Dx); Coronary artery disease involving [place]' coronary artery of [place] heart without angina pectoris; Atrial tachycardia from [...] 1:56 PM CDT Coronary artery disease involving [place] coronary artery of [place] heart without angina pectoris from Last 3 [...] 1 :56 PM CDT us Veronika Kim ROTARY DRIER OPERATOR POINT OF CARE TEST ORDERABLE S Final Result from Last [address] [place] [address] Care Teams Metal Cnc Operator Relationship Specialty Start Date End Date Parish Valdez MD PCP - General Internal Medicine 01/01/24
--- OUTSIDE RECORDS SUMMARY | 2025-04-03 14:00 | XMS_ITS | Encounter Summary ---
Author Organization [facility] Healthcare Address [address] [place] [address] Care Team Providers Care Leather Grader Name Role Phone Parish Valdez MD Primary Care Provider [phone] Encounter Details Date Type Department Care Team (Late st Contact Info) Description 11/28/2024 Orders Only [facility] Health Information Management [address] [place] [id number] Cooper Mathias MD [address] [facility] [address] [facility] [place] [address] Social History Tobacco Use Types Packs/Day Years [...] Anatomical Region Laterality Modality Other us Cooper aMthias MD Edited Re sult - Final documented in this encounter Visit Diagnoses Not on filedocumented in this encounter Care Teams Leather Grader Relationship Specialty Start Date End Date Parish Valdez MD PCP - General Internal Medicine 01/01/24 documented as of this encounter
--- NOTE | 2025-04-03 14:02 | PCRCNOTE ---
attempted to give pt here breathing treatment but was getting transferred to room 257 and refused at this time.
[2025-04-03] MEDS: LACTATED RINGERS 1,000 ML 150 ML IV CONT (15:28)
[2025-04-03] MEDS: IPRATROPIUM BR 0.02% INH SOLN 0.5 MG/2.5 ML VIAL INHALATION ×2 (15:46→19:40)
[2025-04-03] MEDS: ROSUVASTATIN 20 MG TABLET PO (21:38)
[2025-04-03] MEDS: guaiFENesin 12 HR 600 MG TABCR PO (21:38)
[2025-04-03] MEDS: DOXYCYCLINE HYCLATE 100 MG TABLET PO (22:07)
[2025-04-03] MEDS: cefTRIAXone 1 GM in SODIUM CHLORIDE 0.9% IV 50 ML 100 ML IVPB (22:07)
--- NOTE | 2025-04-03 22:26 | PCRCNOTE ---
Patient received her respiratory tx at 1940. Her advair will be started in the am.
[2025-04-04] VITALS (7 sets, daily range): BP systolic 92–139; BP diastolic 47–77; PULSE 84–137; RESP 16–18; TEMP 36.5–36.9; O2SAT 86–92
[2025-04-04] MEDS: IPRATROPIUM BR 0.02% INH SOLN 0.5 MG/2.5 ML VIAL INHALATION ×3 (01:42→13:46)
[2025-04-04 05:21] LABS: Hematocrit 43.0 % (37.0-47.0); Hemoglobin 13.4 g/dL (12.0-15.0); Immature Granulocyte Percent A 0.6 % (0-0.5); Lymphocytes Absolute Auto 0.64 K/mm3 (0.9-3.2); Mean Corpuscular HGB Conc 31.2 g/dl (32-36); Mean Corpuscular Hemoglobin 29.8 pg (26-34); Mean Corpuscular Volume 95.8 fl (80-100); Nucleated Red Blood Cells Absolute Auto 0.000 K/mm3 (0.0-0.012); Nucleated Red Blood Cells Perc 0.0 % (0.0-0.2); Platelet Count Result 299 k/mm3 (150-375); Red Blood Count 4.49 M/mm3 (4.2-5.4); White Blood Count 9.5 K/mm3 (4.5-10.0)
[2025-04-04 05:34] LABS: Anion Gap 8 mmol/L (4-12); Blood Urea Nitrogen 12 mg/dL (7-17); Calcium 9.6 mg/dL (8.4-10.2); Carbon Dioxide 24 mmol/L (22-30); Chloride 105 mmol/L (98-107); Estimated CRCL calculation 62 ml/min; Estimated Glomerular Filt Rate > 60; Glucose 150 mg/dL (65-110); Potassium 4.0 mmol/L (3.4-5.0); Sodium 137 mmol/L (137-145)
[2025-04-04] MEDS: FLUTICASONE/SALMETEROL 115-21 MCG INHALER 1 PUFF 2 PUFF INHALATION (07:47)
[2025-04-04] MEDS: UMECLIDINIUM BROMIDE 62.5 MCG ELLIPTA 1 PUFF INHALATION (07:47)
--- NOTE | 2025-04-04 08:02 | P.PNIM_ITS ---
Progress Note: A&P Assessment and Plan (1) Acute exacerbation of chronic obstructive pulmonary disease: Code(s): J44.1 - Chronic obstructive pulmonary disease with (acute) exacerbation Status: Acute Assessment and Plan: Utilizing home albuterol inhaler and neb with only partial relief. She reports associated productive cough. History significant for COPD, asthma, and current tobacco use. Less than 0.5 PPD x50 years. Treated in the ED with IV steroids and nebulizers No hypoxia noted at rest however dropped into the 80s with ambulation. She does not require supplemental O2 at baseline. - CXR reviewed and showed no acute cardiopulmonary findings - Levalbuterol/ipratropium q.6h aury - Methylprednisolone 60 mg IV q6H - Reported increased sputum production, no leukocytosis noted or pneumonia on CXR. Started Mucinex Antibiotics: doxycycline p.o. and ceftriaxone IV started on 04/03. Ceftriaxone discontinued on 04/04 as low concern for pneumonia given afebrile, no leukocytosis, and clear chest xr - refusing viral PCR - monitor for clinical improvement, will need ambulatory O2 assessment prior to d/c for resolution of hypoxia with exertion - patient encouraged to make follow-up appointment with her sap integration architect at [place] - Monitor vital signs, I&Os, neuro status and patient is a fall risk - Monitor serum electrolytes, cultures and CBC - Monitor Oxygen saturation, currently stable on room air, keep SpO2 greater than 88% (2) Tobacco abuse: Code(s): Z72.0 - Tobacco use Status: Chronic Assessment and Plan: - 0.5 PPD x50 years - declined a nicotine patch - discussed cessation, currently trying to quit on her own. Has reduced from 1 to less than 0.5 daily (3) Anxiety: Code(s): F41.9 - Anxiety disorder, unspecified Status: Chronic Assessment and Plan: - continue home medication(s): BuSpar 10 mg q8h (4) CAD (coronary artery disease): Qualifiers: Coronary Disease-Associated Artery/Lesion type: unspecified vessel or lesion type [place] vs. transplanted heart: [place] heart Associated angina: without angina Qualified Code(s): I25.10 - Atherosclerotic heart disease of [place] coronary artery without angina pectoris Code(s): I25.10 - Atherosclerotic heart disease of [place] coronary artery without angina pectoris Status: Chronic Assessment and Plan: - denying chest pain - continue home medication(s): ASA 81 daily, statin Plan Diet: heart healthy GI Prophylaxis: n/a DVT Prophylaxis: SCDs IV fluids: LR 150 mL/hr x1L Lines/Tubes: peripheral IV Code Status: full code Subjective Date/time seen: 04/04/25 08:02 Interval history: 64 year old female with past medical history of COPD, asthma, CAD, and tobacco use presents to the hospital with shortness of breath. Review of Systems Review of Systems: All systems reviewed & are unremarkable except as noted in HPI and below Exam Narrative: AF General: well nourished, well-developed female in no acute respiratory distress who is nontoxic appearing, lying semi recumbent in bed. HEENT: Normocephalic. Atraumatic. Pupils equal round reactive to light. Extraocular movement intact. Sclera clear and anicteric. Nares patent. No oral lesions. Moist mucous membranes. Tongue is midline. Palate andressa symmetrically. No facial asymmetry. Neck: Neck was supple. No dominant adenopathy, thyromegaly or masses. 2+ carotid upstrokes without bruits. Chest: Lungs are clear to auscultation bilaterlly. No wheezes or crackles. CV: Heart was regular rate and rhythm. S1-S2. No murmurs, gallops, or rubs. Abd: Abdomen was soft. Nontender. Nondistended. Postive bowel sounds. No organomegaly or masses. Ext: No clubbing, cyanosis, or edema. 2+ DP pulses bilaterally. Neuro: Patient is alert and oriented x4. Strenth is 5/5 in both upper and lower extremities. Cranial nerves 2-12 are intact. Speech is clear. Psych: Normal nood and affect. Patient is pleasant and cooperative. Skin: Warm and dry. No rashes noted. Objective Data Vital Signs Vital Signs: Vital Signs - 24 hr 04/03/25 08:29 04/03/25 08:29 04/03/25 08:30 Temperature 97.7 F Pulse Rate 113 H 110 H Respiratory Rate 22 H 22 H Blood Pressure 105/73 Pulse Oximetry 98 99 Oxygen Delivery Room Air Room Air Fraction of Inspired Oxygen 04/03/25 09:01 04/03/25 09:20 04/03/25 09:25 Temperature Pulse Rate 103 H 100 Respiratory Rate 20 18 Blood Pressure 104/64 Pulse Oximetry 94 96 Oxygen Delivery Room Air Fraction of Inspired Oxygen 04/03/25 09:30 04/03/25 10:12 04/03/25 10:41 Temperature Pulse Rate 99 102 H 120 H Respiratory Rate 17 22 H 22 H Blood Pressure 111/69 Pulse Oximetry 100 90 Oxygen Delivery Fraction of Inspired Oxygen 04/03/25 10:46 04/03/25 11:59 04/03/25 12:01 Temperature Pulse Rate 112 H 113 H 115 H Respiratory Rate 23 H 20 20 Blood Pressure 118/60 106/62 109/62 Pulse Oximetry 90 88 L 87 L Oxygen Delivery Fraction of Inspired Oxygen 04/03/25 12:46 04/03/25 13:01 04/03/25 14:38 Temperature 97.4 F L Pulse Rate 120 H 125 H 118 H Respiratory Rate 24 H 21 H 18 Blood Pressure 107/66 115/73 111/70 Pulse Oximetry 89 L 89 L 92 Oxygen Delivery Fraction of Inspired Oxygen 04/03/25 15:48 04/03/25 15:54 04/03/25 19:40 Temperature Pulse Rate 93 99 100 Respiratory Rate 18 18 18 Blood Pressure Pulse Oximetry Oxygen Delivery Fraction of Inspired Oxygen 04/03/25 19:45 04/03/25 19:49 04/03/25 20:00 Temperature Pulse Rate 100 Respiratory Rate 18 Blood Pressure Pulse Oximetry 95 Oxygen Delivery Room Air Room Air Fraction of Inspired Oxygen 21 04/03/25 21:47 04/04/25 01:44 04/04/25 01:51 Temperature 98.4 F Pulse Rate 112 H 96 96 Respiratory Rate 18 18 18 Blood Pressure 138/63 Pulse Oximetry 91 Oxygen Delivery Fraction of Inspired Oxygen 04/04/25 05:02 04/04/25 07:48 Temperature 98.4 F Pulse Rate 107 H 92 Respiratory Rate 16 18 Blood Pressure 139/77 Pulse Oximetry 90 Oxygen Delivery Fraction of Inspired Oxygen Intake/Output Intake/Output: Intake & Output 04/01/25 04/02/25 04/03/25 04/04/25 23:59 23:59 23:59 23:59 Intake Total 1007.5 200 Balance 1007.5 200 Meds/Results Medications: Active Medications Generic Name Dose Route Start Last Admin Trade Name Freq PRN Reason Stop Dose Admin Acetaminophen 650 mg 04/03/25 12:23 Acetaminophen 325 Mg Tablet PO Q4H PRN Mild Pain (1-3) or Fever Hydrocodone Bitart/Acetaminophen 1 tab 04/03/25 12:23 Hydrocodone/Acetaminophen (*Crx) 5-325 Mg Tablet PO Q4H PRN Pain Rated 4-6 Aspirin 81 mg 04/04/25 08:00 Aspirin 81 Mg Chewable Tablet PO DAILY@0800 [facility] Buspirone HCl 10 mg 04/03/25 22:00 04/04/25 06:07 Buspirone Hcl 10 Mg Tablet PO 10 mg Q8HR AURY Administration Diltiazem HCl 180 mg 04/04/25 09:00 Diltiazem Hcl Cd 180 Mg Cap.24hr PO DAILY [facility] Doxycycline Hyclate 100 mg 04/03/25 22:00 04/03/25 22:07 Doxycycline Hyclate 100 Mg Tablet PO 100 mg Q12H AURY Administration Guaifenesin 600 mg 04/03/25 21:00 04/03/25 21:38 Guaifenesin 12 Hr 600 Mg Tabcr PO 600 mg Q12HR AURY Administration Ceftriaxone Sodium 1 gm/ 50 mls @ 100 mls/hr 04/03/25 22:00 04/03/25 22:37 Sodium Chloride IVPB Infused Q24H AURY Infusion Ipratropium [facility] [place] 0.5 mg 04/03/25 14:00 04/04/25 07:43 Ipratropium Br 0.02% Inh Soln 0.5 Mg/2.5 Ml Vial INHALATION 0.5 mg Q6HRT AURY Administration Levalbuterol HCl 0.63 mg 04/03/25 14:00 04/04/25 07:43 Levalbuterol Neb 1.25 Mg/3 Ml INHALATION 0.63 mg Q6HRT AURY Administration Methylprednisolone Sodium Succinate 60 mg 04/03/25 18:00 04/04/25 06:07 Methylprednisolone Sod Succ 125 Mg Vial IV PUSH 60 mg Q6HR AURY Administration Ondansetron HCl 4 mg 04/03/25 12:23 Ondansetron Inj 4 Mg/2 Ml Vial IV PUSH Q4H PRN Nausea Rosuvastatin Calcium 20 mg 04/03/25 21:10 04/03/25 21:38 Rosuvastatin 20 Mg Tablet PO 20 mg QHS AURY Administration Fluticasone/Salmeterol 2 puff 04/03/25 21:15 04/04/25 07:47 Fluticasone/Salmeterol 115-21 Mcg Inhaler 1 Puff INHALATION 2 puff Q12HRT AURY Administration Umeclidinium [facility] [place] 1 puff 04/04/25 08:00 04/04/25 07:47 Umeclidinium [facility] [place] 62.5 Mcg Ellipta INHALATION 1 puff DAILYRT AURY Administration Radiology Results: ITS Impressions Chest X-Ray 04/03/25 11:12 IMPRESSION: 1. No acute cardiopulmonary findings. Labs Labs: Laboratory Results - last 24 hr 04/03/25 04/04/25 08:44 04:28 WBC 9.3 9.5 RBC 4.70 4.49 Hgb 13.9 13.4 Hct 45.5 43.0 MCV 96.8 95.8 MCH 29.6 29.8 MCHC 30.5 L 31.2 L RDW 13.4 13.1 Plt Count 277 299 MPV 10.5 H 10.9 H Immature Gran % (Auto) 0.3 0.6 H Neut % (Auto) 63.7 92.0 H Lymph % (Auto) 26.7 6.7 L [place] % (Auto) 5.9 0.6 L Eos % (Auto) 2.4 0.0 Baso % (Auto) 1.0 0.1 L Lymph # (Auto) 2.49 0.64 L [place] # (Auto) 0.6 0.1 Eos # (Auto) 0.2 0.0 Baso # (Auto) 0.1 0.0 Abs Immat Gran (auto) 0.03 0.06 H Absolute Neuts (auto) 5.9 8.8 H Absolute Nucleated RBC 0.000 0.000 Nucleated RBC % 0.0 0.0 Sodium 140 137 Potassium 4.1 4.0 Chloride 105 105 Carbon Dioxide 29 24 Anion Gap 6 8 BUN 6 L D 12 D Creatinine 0.92 0.87 Estim Creat Clear Calc 58 62 Estimated GFR > 60 > 60 Glucose 108 150 H Calcium 9.3 9.6 Total Bilirubin 0.5 AST 29 ALT 18 Alkaline Phosphatase 72 Total Protein 7.2 Albumin 4.2 Quality VTE Prophylaxis VTE prophylaxis: mechanical ordered
[2025-04-04] MEDS: ASPIRIN 81 MG CHEWABLE TABLET PO (09:01)
[2025-04-04] MEDS: guaiFENesin 12 HR 600 MG TABCR PO (09:01)
[2025-04-04] MEDS: dilTIAZem HCL CD 180 MG CAP.24HR PO (09:02)
[2025-04-04] MEDS: DOXYCYCLINE HYCLATE 100 MG TABLET PO (11:38)
--- NOTE | 2025-04-04 14:57 | P.DS_ITS ---
DS: Admitting Diagnosis Discharge Date 04/04/2025 Admitting Diagnosis Acute COPD exacerbation Tobacco abuse Anxiety CAD DS: Discharge Diagnosis Discharge Diagnosis (1) Acute exacerbation of chronic obstructive pulmonary disease: Code(s): J44.1 - Chronic obstructive pulmonary disease with (acute) exacerbation Status: Acute (2) Tobacco abuse: Code(s): Z72.0 - Tobacco use Status: Chronic (3) Anxiety: Code(s): F41.9 - Anxiety disorder, unspecified Status: Chronic (4) CAD (coronary artery disease): Qualifiers: Associated angina: without angina Coronary Disease-Associated Artery/Lesion type: unspecified vessel or lesion type [place] vs. transplanted heart: [place] heart Qualified Code(s): I25.10 - Atherosclerotic heart disease of [place] coronary artery without angina pectoris Code(s): I25.10 - Atherosclerotic heart disease of [place] coronary artery without angina pectoris Status: Chronic DS: Summary Hospital Course Reason for hospitalization: Acute COPD exacerbation Tobacco abuse Anxiety CAD Hospital Course: 64 year old female with past medical history of COPD, asthma, CAD, and tobacco use presents to the hospital with shortness of breath. CXR reviewed and showed no acute cardiopulmonary findings. In the ED patient had no hypoxia noted at rest however dropped into the 80s with ambulation. Admitted to the hospital for COPD exacerbation. Patient started on IV steroids and antibiotics. Patient originally started on doxycycline and Rocephin however prior to discharge Rocephin was discontinued as low concern for pneumonia given afebrile, no leukocytosis, and clear chest xr. Per chart review patient refused viral panel. Patient was evaluated by respiratory therapy for a home O2 evaluation to which they recommend no oxygen at rest but 2 L with activity. Discussed with respiratory therapy and per prior notes patient is also to be on 3 L nocturnally. Given the new O2 requirement returned to patient's room and discussed the results with her stating that patient could stay to continue IV steroids breathing treatments with re-evaluation of O2 requirement versus returning home and following up with her primary care provider. After shared decision-making patient decided that she feels back to her baseline and is wanting to move forward with discharge. Discussed with patient that she would benefit from a pulmonology follow-up given the new O2 requirement. Patient stated understanding and a referral was sent to Dr. Ragsdale as he was previously saw her in the hospital in November. Strongly encouraged smoking cessation given progressing COPD. Patient states understanding. Patient no complaints at time of discharge denying chest pain, shortness a breath, palpitations, nausea/vomiting, abdominal pain, and dizziness/lightheadedness. Patient discharged home in a stable condition. She is to follow up with her primary care provider in 1 week and call for a pulmonology appointment. Status at Discharge Functional status at discharge: independent ambulation Time Spent with Patient Time attestation: Total time spent providing and/or coordinating discharge services: Time spent: Greater than 30 minutes Exam Narrative: AF HR 107 RR 16 SpO2 90 BP 139/77 General: female in no acute respiratory distress who is nontoxic appearing, sitting up in bed and ambulating throughout the room HEENT: Normocephalic. Atraumatic. Extraocular movement intact. Sclera clear and anicteric. No facial asymmetry. Chest: Lungs are clear to auscultation bilaterally. No wheezes or crackles. CV: Heart was regular rate and rhythm. Abd: Abdomen was soft. Nontender. Nondistended. Positive bowel sounds. Ext: No clubbing, cyanosis, or edema. DP pulses bilaterally. Neuro: Patient is alert and oriented x4. Speech is clear. DS: Data Data Completed and Pending Completed studies during hospitalization: chest xr Labs on day of discharge: Labs from last 24 hours 04/04/25 04:28 WBC 9.5 RBC 4.49 Hgb 13.4 Hct 43.0 MCV 95.8 MCH 29.8 MCHC 31.2 L RDW 13.1 Plt Count 299 MPV 10.9 H Immature Gran % (Auto) 0.6 H Neut % (Auto) 92.0 H Lymph % (Auto) 6.7 L Luna % (Auto) 0.6 L Eos % (Auto) 0.0 Baso % (Auto) 0.1 L Lymph # (Auto) 0.64 L Luna # (Auto) 0.1 Eos # (Auto) 0.0 Baso # (Auto) 0.0 Abs Immat Gran (auto) 0.06 H Absolute Neuts (auto) 8.8 H Absolute Nucleated RBC 0.000 Nucleated RBC % 0.0 Sodium 137 Potassium 4.0 Chloride 105 Carbon Dioxide 24 Anion Gap 8 BUN 12 D Creatinine 0.87 Estim Creat Clear Calc 62 Estimated GFR > 60 Glucose 150 H Calcium 9.6 Discharge Plan Discharge Attending physician on discharge: Brent Yepez Consulting providers: Janiya Corrigan Discharging Clinician: Janiya Corrigan Anticipated Discharge Date/Time: 04/04/25 14:51 Patient Disposition: Home Activity: as tolerated Diet: as tolerated and heart healthy Discharge Instructions: Discharge disposition: Patient admitted to the hospital for a COPD exacerbation Take medications as prescribed Doxycycline twice day for 5 more days Prednisone 40 mg daily for 5 days Attached is information on these medications Patient had a home o2 evaluation performed by respiratory Continue 3L overnight as previously prescribed No oxygen required at rest 2 L oxygen supplementation required with activity Follow up with pulmonology, attached is Dr. Ragsdale office information again Monitor blood pressures Take caution while standing, rising, or moving Change positions slowly taking a break between each position change If you standing feel dizzy sit back down and take a break Encouraged to continue with yearly vaccinations Return to the emergency department if he developed sudden shortness of breath, chest pain, nausea, vomiting, upset stomach or intractable diarrhea Return to the emergency department if you develop fever greater than 100.5 Follow-up with the primary care physician within 1-2 weeks Thank you for [facility] for your healthcare needs Patient Instructions: Antibiotic Form, Doxycycline (By mouth), Prednisone (By mouth), Using Oxygen at Home (DC), COPD (Chronic Obstructive Pulmonary Disease) (DC) Patient Language: Russian Stand Alone Forms: General Discharge Information Follow-up/Referrals: José MiguelParish MD [Primary Care Provider] - 1 Week Parish Ragsdale MD [Physician, Pulmonology] - Call for Appointment Referral Note: Previously seen in November 2024. Has not follow up with pulmonology since then. Now requiring oxygen supplementation. Discharge Medications: New doxycycline hyclate 100 mg Tablet 100 mg PO Q12H 5 Days Qty: 10 0RF prednisone 20 mg tablet 40 mg PO DAILY Qty: 10 0RF Continued Incruse Ellipta 62.5 mcg/actuation blister with device 1 inh INHALATION DAILY nicotine [Nicoderm CQ] 21 mg/24 hr Patch 24 Hour 1 patch transdermal DAILY Qty: 14 0RF aspirin [Children's Aspirin] 81 mg Tablet,Chewable 81 mg PO DAILY@0800 Qty: 30 0RF rosuvastatin 20 mg Tablet 20 mg PO EVENING Qty: 30 0RF levalbuterol HCl 1.25 mg/3 mL solution for nebulization 1.25 mg inhalation Q4H PRN (Reason: shortness of breath or wheezing) Qty: 72 0RF buspirone 10 mg Tablet 10 mg PO Q8H Qty: 90 0RF diltiazem HCl [Cartia XT] 180 mg capsule,extended release 24hr 180 mg PO DAILY Qty: 30 0RF fluticasone propion-salmeterol 115-21 mcg/actuation HFA aerosol inhaler 2 puff INHALATION Q12H albuterol sulfate 2.5 mg /3 mL (0.083 %) solution for nebulization 2.5 mg continuous nebulization Q8H PRN (Reason: shortness of breath unrelieved by inhaler) albuterol sulfate 90 mcg/actuation HFA aerosol inhaler 1 inh INHALATION QID PRN (Reason: shortness of breath or wheezing) Date of admission: 04/03/25 12:24 Primary Care Provider: Parish Mcgregor Admitting Provider: Liliane Aguirre Attending physician on admission: Liliane Aguirre Condition: Stable Hospitalist MIPS Heart Failure (Exclusion) Patient has history of Heart Transplant or Left Ventricular Assistive Device?: No IF YES, STOP HERE Heart Failure (Qualifier) Patient has current or prior documentation of LVEF less than or equal to 40%, or mod/servere depressed LVSF?: No IF NO, STOP HERE
== END 2025-04-04 15:15 | disposition home or self-care (01) ==
LOC: ANHED 08:33 → ANH3MEDSUR 13:43 → ANH2MED 04-04 06:52 → ANH3MEDSUR 04-05 07:13
PROVIDERS: Student in an Organized Health Care Education/Training Program; Admitting Provider Internal Medicine; Emergency Provider Emergency Medicine; PCP Internal Medicine; Visit Provider General Practice
DX: J44.1 Chronic obstructive pulmonary disease with (acute) exacerbation (principal); I25.10 Atherosclerotic heart disease of native coronary artery without angina pectoris; F17.210 Nicotine dependence, cigarettes, uncomplicated; F41.9 Anxiety disorder, unspecified
CPT/HCPCS: 36415; 71046; 80048; 80053; 85025; 93005; 94618; 94640; 96361; 96365; 96374; 96375; 96376; 99285; A9270; G0378; J0696; J2919; J3360; J7120

== ENCOUNTER 2025-04-10 08:39 | Inpatient (IN) | payer OTHER, SELFPAY ==
[2025-04-10] VITALS (35 sets, daily range): BP systolic 90–133; BP diastolic 40–87; PULSE 49–147; RESP 15–31; TEMP 36.4–38.6; O2SAT 83–100; BMI 30.4
--- NOTE | ~2025-04-10 | XR_ITS ---
EXAMINATION: XR chest 1V portable COMPARISON: No comparisons available. HISTORY: Sepsis FINDINGS: COPD changes, small left lower lobe infiltrate No pneumothorax. Heart is normal size. Mediastinal and hilar contours are within normal limits. Bony thorax no acute abnormality. Miscellaneous: None Impression: Early left lower lobe pneumonia Reviewed, dictated and finalized at location P. Impression: Early left lower lobe pneumonia
--- NOTE | ~2025-04-10 | XR_ITS ---
Examination: XR chest 1V portable Clinical History: sob/COPD Comparison: 04/03/2025 Technique: Portable AP Findings: Heart size normal. Mild bibasilar predominant interstitial changes thought to be overlying soft tissue artifact. Otherwise lungs clear. No acute bony abnormality. IMPRESSION: 1. No definite acute cardiopulmonary findings given portable technique. Can consider PA and lateral films with deep inspiration. Reviewed, dictated and finalized at location R. IMPRESSION: 1. No definite acute cardiopulmonary findings given portable technique. Can co nsider PA and lateral films with deep inspiration.
--- NOTE | 2025-04-10 08:50 | ECG_ITS ---
Test Date: 2025-04-10 08:54:39 Measurements Intervals [place] Rate: 125 P: -13 WA: 131 QRS: 138 QRSD: 77 T: 0 QT: 277 QTc: 400 Interpretive Statements SINUS TACHYCARDIA WITH FREQUENT SUPRAVENTRICULAR PREMATURE COMPLEXES POSSIBLE RIGHT VENTRICULAR HYPERTROPHY [SOME/ALL OF: PROMINENT R IN V1, LATE TRANSITION, RAD, CHAPO, SSS] Compared to ECG 04/03/2025 08:32:01 No significant changes Electronically Signed On 04-10-2025 10:29:32 CDT by Sidney Tsang M.D.
--- OUTSIDE RECORDS SUMMARY | 2025-04-10 08:51 | XMS_ITS | Clinical Summary ---
Author Organization [facility] Address [address] [place] [address] Care Team Providers Care Java Architect Name Role Phone Ethan Cerrato Primary Care Provider + Source Comments [facility],non-owned Affiliates and Associated Physician Practices is amultiple site organization consisting of ambulatory clinics and hospital sitesin [place], [place], [place] and [place]. This disclosure is being madepursuant to the Care Everywhere program and may not contain all information available regarding this patient. Last updated 18.[facility] Allergies No known active allergies Medications * [...] on file Legal Sex Female 8:53 AM PLANT PRODUCTION MANAGER Gender Identity Not on file Sexual Orientation Not on file Last Filed Vital Signs Vital Sign Reading Time Taken Comments Blood Pressure 122/80 07/25/2017 10:47 AM PLANT PRODUCTION MANAGER Pulse 80 07/25/2017 10:47 AM PLANT PRODUCTION MANAGER Temperature 36.8 C (98.2 F) 07/25/2017 10:47 AM PLANT PRODUCTION MANAGER Respiratory Rate 20 07/25/2017 10:47 AM PLANT PRODUCTION MANAGER Oxygen Saturation 94% 07/25/2017 10:47 AM PLANT PRODUCTION MANAGER Inhaled Oxygen Concentration - - Weight 74.8 kg (165 lb) 07/25/2017 10:47 AM PLANT PRODUCTION MANAGER Height 160 cm (5' 3) 07/25/2017 10:47 AM PLANT PRODUCTION MANAGER Body Mass Index 29.23 07/25/2017 10:47 AM PLANT PRODUCTION MANAGER Plan of Treatment Health Maintenance Due Date [...] patient's age to complete this topic Insurance [facility] Care Teams Java Architect Relationship Specialty Start Date End Date Ethan Cerrato PA [address] [place] [address] PCP - General Physician Registered Public Surveyor 07/25/17
--- OUTSIDE RECORDS SUMMARY | 2025-04-10 08:51 | XMS_ITS | Encounter Summary ---
Author Organization [facility] Healthcare Address [address] [place] [address] Care Team Providers Care Golf Cart Mechanic Name Role Phone Parish Valdez MD Primary Care Provider [phone] Encounter Details Date Type Department Care Team (Late st Contact Info) Description 11/28/2024 Orders Only [facility] [place] [address] [place] [phone] Cooper Mathias MD [address] [facility] [address] [facility] [place] [address] Social History Tobacco Use Types Packs/Day Years [...] on filedocumented in this encounter Care Teams Golf Cart Mechanic Relationship Specialty Start Date End Date Parish Valdez MD PCP - General Internal Medicine 01/01/24 documented as of this encounter
--- OUTSIDE RECORDS SUMMARY | 2025-04-10 08:51 | XMS_ITS | Clinical Summary ---
Author Organization [facility] [address] Address [address] [place] [address] Care Team Providers Care Complex Director Name Role Phone Parish Valdez MD Primary Care Provider [phone] Allergies Active Allergy Reactions Criticality Noted Date [...] follow-up 01/20/2025 Coronary artery disease invo lving [place] coronary artery of [place] heart without angina pectoris 01/20/2025 Atrial tachycardia 01/20/2025 Encounters Date Type Department Care Team Description 01/20/2025 10:30 AM CDT Office Visit [facility] Cardiology [address] [place] [address] Veronika Kim NP Hospital discharge follow-up (Primary Dx); Coronary artery disease involving [place] coronary artery of [place] heart without angina pectoris; Atrial tachycardia from [...] 1:56 PM CDT Coronary artery disease involving [place] coronary artery of [place] heart without angina pectoris from Last 3 [...] 1 :56 PM CDT us Veronika Kim SUPERVISOR DRIED YEAST POINT OF CARE TEST ORDERABLE S Final Result from Last [address] [place] [address] [place] [address] Care Teams Complex Director Relationship Specialty Start Date End Date Parish Valdez MD PCP - General Internal Medicine 01/01/24
--- OUTSIDE RECORDS SUMMARY | 2025-04-10 08:51 | XMS_ITS | Encounter Summary ---
Author Organization [facility] Healthcare Address [address] [place] [address] Care Team Providers Care Dobby Looms Pegger Name Role Phone Parish Valdez MD Primary Care Provider [phone] Encounter Details Date Type Department Care Team (Late st Contact Info) Description 12/06/2024 Orders Only [facility] [facility] Information Management [address] [place] [phone] Scanning, Provider Social History Tobacco Use Types [...] on filedocumented in this encounter Care Teams Dobby Looms Pegger Relationship Specialty Start Date End Date Parish Valdez MD PCP - General Internal Medicine 6/21/24 documented as of this encounter
[2025-04-10 09:14] LABS: Hematocrit 44.2 % (37.0-47.0); Hemoglobin 13.9 g/dL (12.0-15.0); Immature Granulocyte Percent A 1.5 % (0-0.5); Lymphocytes Absolute Auto 1.40 K/mm3 (0.9-3.2); Mean Corpuscular HGB Conc 31.4 g/dl (32-36); Mean Corpuscular Hemoglobin 29.5 pg (26-34); Mean Corpuscular Volume 93.8 fl (80-100); Nucleated Red Blood Cells Absolute Auto 0.000 K/mm3 (0.0-0.012); Nucleated Red Blood Cells Perc 0.0 % (0.0-0.2); Platelet Count Result 250 k/mm3 (150-375); Red Blood Count 4.71 M/mm3 (4.2-5.4); White Blood Count 10.7 K/mm3 (4.5-10.0)
[2025-04-10 09:27] LABS: Alanine Aminotransferase 33 U/L (6-35); Albumin Level 3.9 g/dL (3.5-5.1); Alkaline Phosphatase 51 U/L (38-126); Anion Gap 9 mmol/L (4-12); Aspartate Amino Transferase 31 U/L (14-36); Bilirubin,Total 0.3 mg/dL (0.2-1.3); Blood Urea Nitrogen 15 mg/dL (7-17); Calcium 8.7 mg/dL (8.4-10.2); Carbon Dioxide 27 mmol/L (22-30); Chloride 99 mmol/L (98-107); Estimated CRCL calculation 52 ml/min; Estimated Glomerular Filt Rate 51; Glucose 100 mg/dL (65-110); Potassium 3.5 mmol/L (3.4-5.0); Sodium 135 mmol/L (137-145); Total Protein 6.3 g/dL (6.3-8.2)
[2025-04-10 09:37] LABS: Alveolar/Arterial O2 Gradient 57.8 mmHg; Carboxyhemoglobin 1.5 % THb (0-2.0); Fractional Inspired Oxygen 28 %; HCO3 ABG 27.7 mEq/l (22.0-26.0); Methemoglobin ABG 0.2 %THb (0-1.5); Oxygen Content ABG 19.9 %vol (16.0-22.0); Oxygen Saturation ABG 97.4 % (95.0-100.0); PCO2 ABG 40.8 mmHg (35.0-45.0); PO2 ABG 93.7 mmHg (80.0-100.0); PO2 FiO2 Ratio Arterial Blood 3.35 %; Reduced Hemoglobin 2.2 %THb (0-5.0)
[2025-04-10 09:39] LABS: Liters per Minute 2.0 LPM; Modified Allen's Test Pass; Site Drawn RIGHT RADIAL
[2025-04-10] MEDS: IPRATROPIUM BR 0.02% INH SOLN 0.5 MG/2.5 ML VIAL INHALATION ×3 (09:42→21:45)
--- OUTSIDE RECORDS SUMMARY | 2025-04-10 09:42 | XMS_ITS | Encounter Summary ---
Author Organization [facility] Healthcare Address [address] [place] [address] Care Team Providers Care Accounting Technician Name Role Phone Parish Valdez MD Primary Care Provider [phone] Encounter Details Date Type Department Care Team (Late st Contact Info) Description 12/06/2024 Orders Only [facility] [place] [address] [place] [id number] Scanning, Provider Social History Tobacco Use Types [...] on filedocumented in this encounter Care Teams Accounting Technician Relationship Specialty Start Date End Date Parish Valdez MD PCP - General Internal Medicine 6/21/24 documented as of this encounter
--- OUTSIDE RECORDS SUMMARY | 2025-04-10 09:42 | XMS_ITS | Encounter Summary ---
Author Organization [facility] Healthcare Address [address] [place] [address] Care Team Providers Care Stage Hand Name Role Phone Parish Valdez MD Primary Care Provider [phone] Encounter Details Date Type Department Care Team (Late st Contact Info) Description 11/28/2024 Orders Only [facility] Information Management [address] [place] [id number] Cooper Mathias MD [address] [facility] [address] [facility], [address] [place] [address] Social History Tobacco Use Types Packs/Day Years [...] on filedocumented in this encounter Care Teams Stage Hand Relationship Specialty Start Date End Date Parish Valdez MD PCP - General Internal Medicine 01/01/24 documented as of this encounter
--- OUTSIDE RECORDS SUMMARY | 2025-04-10 09:42 | XMS_ITS | Clinical Summary ---
Author Organization [facility] [address] Address [address] [place] [address] Care Team Providers Care Machine Hamper Maker Name Role Phone Parish Valdez MD Primary Care Provider [phone] Allergies Active Allergy Reactions Criticality Noted Date [...] follow-up 01/20/2025 Coronary artery disease invo lving [place] coronary artery of [place] heart without angina pectoris 01/20/2025 Atrial tachycardia 01/20/2025 Encounters Date Type Department Care Team Description 01/20/2025 10:30 AM CDT Office Visit [facility] Cardiology [address] [place] [address] Veronika Kim NP Hospital discharge follow-up (Primary Dx); Coronary artery disease involving [place] coronary artery of [place] heart without angina pectoris; Atrial tachycardia from [...] 1:56 PM CDT Coronary artery disease involving [place] coronary artery of [place] heart without angina pectoris from Last 3 [...] 1 :56 PM CDT us Veronika Kim HEALTH PROMOTION COORDINATOR POINT OF CARE TEST ORDERABLE S Final Result from Last [address] [place] [address] [place] [address] Care Teams Machine Hamper Maker Relationship Specialty Start Date End Date Parish Valdez MD PCP - General Internal Medicine 01/01/24
--- OUTSIDE RECORDS SUMMARY | 2025-04-10 09:42 | XMS_ITS | Data Portability ---
Author Organization [place] Address [address] [facility] [place] [address] Care Team Providers Care Logistics Project Manager Name Role Phone SATINDER VALDEZ Primary Care Provider [phone] Assessment Encounter Date Assessment Date Assessment LastModified by Organization Details LastModified Time 02/24/2024 02/24/2024 smoking cessatio n discussed in detail says she uses patch has before and that she will do it again continue with her inhalers her O2 sat today is 98 %. Prednisone to have on hand at home in case she decompensates with her COPD with the understanding that she will call if she has to start it. Also get pulmonary function tests [email or web address] Not available 02/24/2024 21:43:50 04/29/2024 04/29/2024 she [...] COPD flare she would notify the office [email or web address] Not available 04/29/2024 14:50:20 2024 2024 PFTs. Refuses to get evaluation by gynecology for well-woman refuses any colon cancer screening refuses any immunizations. Blood work has been ordered follow up 3 months. Low-fat diet do not smoke stay active [email or web address] Not available 2024 16:21:48 01/25/2025 01/25/2025 Refill medications for her nebulizer continue with current therapy COPD today stable do not smoke healthy food choices no angina or anginal equivalents medicines being adjusted for tachycardia anxiety today is pretty good follow up 3 months smoking cessation is paramount quitting tobacco care instructions follow up with me in 3 months [email or web address] Not available 02/05/2025 13:31:18 02/23/2025 02/23/2025 Prednisone 40 mg daily 5 days doxycycline 100 b.i.d. 10 days drink lots of fluid. As far his her anxiety goes this is problematic ER gave her a benzodiazepine I told her I am uncomfortable giving her that for lung doctor wants to give her that that is fine with her significant COPD I think she needs non sedating options for her anxiety I have recommended she see a psychiatrist declined follow up with me in 2-3 months healthy lifestyle care instructions [email or web address] Not available 02/25/2025 11:52:05 Plan of Treatment Reminders Order Date Submit Date Provider Last Modified By Organization Details Last Modified Time Details Appointments ANY 15 2024 11:00A M Satinder Valdez MD Not available Not available Not available Lab CBC w/ auto diff 2024 025 [facility], [address] [place] [address], [place] [address], [place], [address], 10/01/2024 08:24:19 CMP, serum or plasma 2024 025 [facility], [address] [place] [address], [place] [address], [place], [address], 10/01/2024 08:24:18 lipid panel, serum 2024 025 [facility], [address] [place] [address], [facility] [address], [place], [address], 10/01/2024 08:24:17 Referral None recorded. Procedures None recorded. Surgeries None recorded. Imaging None recorded. Medication Orders prednison e 20 mg tablet 2024 025 [email or web address] [facility], [address] [place], [place], [id number], 02/23/2025 15:39:44 doxycycli ne hyclate 100 mg tablet 2024 025 [facility] #00235, [address] [place], [id number], 03/12/2025 05:02:11 buspirone 10 mg tablet [address] [facility] #90831, [address], [place], [place], [id number], 01/25/2025 17:25:00 levalbute rol 1.25 mg/3 mL solution for nebulizat ion [address] [facility]94606, [address], [place], [id number], 01/25/2025 17:25:00 prednison e 20 mg tablet 2023 024 [facility], [address], [place], [place], [id number], 01/25/2025 14:07:47 atorvasta tin 40 mg tablet 2023 025 [facility] #57884, [address], [id number], 01/25/2025 14:13:25 prednison e 20 mg tablet 2023 024 [facility] #06186, [address], [place], [place], [id number], 01/25/2025 14:07:47 Patient TargetsNo targets recorded. Patient Instructions Encounter Date Encounter Id Patient Instructions Last Modified By Organization Details Last Modified Time 02/24/2024 [id number] Quitting Tobacco: Care Instructions [email or web address] Not available 02/24/2024 21:44:48 sending diane to [facility] for ER note and [facility] for PFT [email or web address] Not available 02/24/2024 17:10:26 01/25/2025 [id number] Quitting Tobacco: Care Instructions Not available 01/25/2025 17:25:00 A healthy lifestyle: care instructions [email or web address] Not available 01/25/2025 17:25:00 02/23/2025 [id number] A healthy lifestyle: care instructions Not available 02/25/2025 11:52:22 Reason for Referral None Reported. Results Created Date Observation Date Name Description Value Unit Range Abnormal Flag Note LastModifiedBy Organization Detail LastModifiedTime 10/01/1910/01/2024 LIPID PANEL cholesterol, total 233 mg/dL 100-19 9 above high normal Not Available [facility] ([facility]) [address] [place], [address], 10/01/2024 08:24:17 10/01/19 25 10/01/2024 LIPID PANEL triglyceride s 200 mg/dL 0-149 above high normal Not Available [facility] ([facility]) [address] [place], [address], 10/01/2024 08:24:17 10/01/19 25 10/01/2024 LIPID PANEL HDL cholesterol 75 mg/dL >39 Not Available [facility] ([facility]) [address] [place], [address], 10/01/2024 08:24:17 10/01/19 25 10/01/2024 LIPID PANEL VLDL cholesterol mahogany 35 mg/dL 5-40 Not Available [facility] ([facility]) [address] [place], [address], 10/01/2024 08:24:17 10/01/19 25 10/01/2024 LIPID PANEL LDL chol calc ([facility]) 123 mg/dL 0-99 above high normal Not Available [facility] ([facility]) [address] [place], [address], 10/01/2024 08:24:17 10/01/19 25 10/01/2024 COMP. METAB OLIC PANEL (14) glucose 84 mg/dL 70-99 Not Available [facility] ([facility]) [address] [place], [address], 10/01/2024 08:24:18 10/01/19 25 10/01/2024 COMP. METAB OLIC PANEL (14) BUN 12 mg/dL 8-27 Not Available [facility] ([facility]) [address] [place], [address], 10/01/2024 08:24:18 10/01/19 25 10/01/2024 COMP. METAB OLIC PANEL (14) creatinine 1.03 mg/dL 0.57-1 .00 above high normal Not Available [facility] ([facility]) [address] [place], [address], 10/01/2024 08:24:18 10/01/19 25 10/01/2024 COMP. METAB OLIC PANEL (14) eGFR 61 mL/mi n/1.7 3 >59 Not Available [facility] ([facility]) [address] [place], [address], 10/01/2024 08:24:18 10/01/19 25 10/01/2024 COMP. METAB OLIC PANEL (14) BUN/creatini ne ratio 12 12-28 Not Available [facility] ([facility]) [address] [place], [address], 10/01/2024 08:24:18 10/01/19 25 10/01/2024 COMP. METAB OLIC PANEL (14) sodium 141 mmol/ L 134-14 4 Not Available [facility] ([facility]) [address] [place], [address], 10/01/2024 08:24:18 10/01/19 25 10/01/2024 COMP. METAB OLIC PANEL (14) potassium 4.7 mmol/ L 3.5-5. 2 Not Available [facility] ([facility]) [address] [place], [address], 10/01/2024 08:24:18 10/01/19 25 10/01/2024 COMP. METAB OLIC PANEL (14) chloride 101 mmol/ L 96-106 Not Available [facility] ([facility]) [address] [place], [address], 10/01/2024 08:24:18 10/01/19 25 10/01/2024 COMP. METAB OLIC PANEL (14) carbon dioxide, total 22 mmol/ L 20-29 Not Available [facility] ([facility]) [address] [place], [address], 10/01/2024 08:24:18 10/01/19 25 10/01/2024 COMP. METAB OLIC PANEL (14) calcium 9.6 mg/dL 8.7-10 .3 Not Available [facility] ([facility]) [address] [place], [address], 10/01/2024 08:24:18 10/01/19 25 10/01/2024 COMP. METAB OLIC PANEL (14) protein, total 6.4 g/dL 6.0-8. 5 Not Available [facility] ([facility]) [address] [place], [address], 10/01/2024 08:24:18 10/01/19 25 10/01/2024 COMP. METAB OLIC PANEL (14) albumin 4.3 g/dL 3.9-4. 9 Not Available [facility] ([facility]) [address] [facility] [place], [address], 10/01/2024 08:24:18 10/01/19 25 10/01/2024 COMP. METAB OLIC PANEL (14) globulin, total 2.1 g/dL 1.5-4. 5 Not Available [facility] ([facility]) [address] [place], [address], 10/01/2024 08:24:18 10/01/19 25 10/01/2024 COMP. METAB OLIC PANEL (14) bilirubin, total 0.4 mg/dL 0.0-1. 2 Not Available [facility] ([facility]) [address] [facility] [place], [address], 10/01/2024 08:24:18 10/01/19 25 10/01/2024 COMP. METAB OLIC PANEL (14) alkaline phosphatase 90 IU/L 44-121 Not Available [facility] ([facility]) [address] [place], [address], 10/01/2024 08:24:18 10/01/19 25 10/01/2024 COMP. METAB OLIC PANEL (14) AST (SGOT) 17 IU/L 0-40 Not Available [facility] ([facility]) [address] [place], [address], 10/01/2024 08:24:18 10/01/19 25 10/01/2024 COMP. METAB OLIC PANEL (14) ALT (SGPT) 20 IU/L 0-32 Not Available [facility] ([facility]) [address] [place], [address], 10/01/2024 08:24:18 10/01/19 25 10/01/2024 CBC WITH DIFFE RENTI AL/PL ATELE T WBC 9.3 x10e3 /uL 3.4-10 .8 Not Available [facility] ([facility]) [address] [place], [address], 10/01/2024 08:24:19 10/01/19 25 10/01/2024 CBC WITH DIFFE RENTI AL/PL ATELE T RBC 5.33 x10e6 /uL 3.77-5 .28 above high normal Not Available [facility] ([facility]) [address] [facility] [place], [address], 10/01/2024 08:24:19 10/01/19 25 10/01/2024 CBC WITH DIFFE RENTI AL/PL ATELE T hemoglobin 17.6 g/dL 11.1-1 5.9 above high normal Not Available [facility] ([facility]) [address] [facility], [place], [address], 10/01/2024 08:24:19 10/01/19 25 10/01/2024 CBC WITH DIFFE RENTI AL/PL ATELE T hematocrit 53.6 % 34.0-4 6.6 above high normal Not Available [facility] ([facility]) [address] [facility], [place], [address], 10/01/2024 08:24:19 10/01/19 25 10/01/2024 CBC WITH DIFFE RENTI AL/PL ATELE T MCV 101 fL 79-97 above high normal Not Available [facility] ([facility]) [address] [place], [address], 10/01/2024 08:24:19 10/01/19 25 10/01/2024 CBC WITH DIFFE RENTI AL/PL ATELE T MCH 33.0 pg 26.6-3 3.0 Not Available [facility] ([facility]) [address] [place], [address], 10/01/2024 08:24:19 10/01/19 25 10/01/2024 CBC WITH DIFFE RENTI AL/PL ATELE T MCHC 32.8 g/dL 31.5-3 5.7 Not Available [facility] ([facility]) [address] [place], [address], 10/01/2024 08:24:19 10/01/19 25 10/01/2024 CBC WITH DIFFE RENTI AL/PL ATELE T RDW 13.8 % 11.7-1 5.4 Not Available [facility] ([facility]) [address] [facility], [place], [address], 10/01/2024 08:24:19 10/01/19 25 10/01/2024 CBC WITH DIFFE RENTI AL/PL ATELE T platelets 263 x10e3 /uL 150-45 0 Not Available [facility] ([facility]) [address] [facility], [place], [address], 10/01/2024 08:24:19 10/01/19 25 10/01/2024 CBC WITH DIFFE RENTI AL/PL ATELE T neutrophils 59 % notest ab. Not Available [facility] ([facility]) [address] [facility], [place], [address], 10/01/2024 08:24:19 10/01/19 25 10/01/2024 CBC WITH DIFFE RENTI AL/PL ATELE T lymphs 29 % notest ab. Not Available [facility] ([facility]) [address] [facility], [place], [address], 10/01/2024 08:24:19 10/01/19 25 10/01/2024 CBC WITH DIFFE RENTI AL/PL ATELE T monocytes 8 % notest ab. Not Available [facility] ([facility]) [address] [facility], [place], [address], 10/01/2024 08:24:19 10/01/19 25 10/01/2024 CBC WITH DIFFE RENTI AL/PL ATELE T eos 2 % notest ab. Not Available [facility] ([facility]) [address] [facility], [place], [address], 10/01/2024 08:24:19 10/01/19 25 10/01/2024 CBC WITH DIFFE RENTI AL/PL ATELE T basos 1 % notest ab. Not Available [facility] ([facility]) [address] [facility], [place], [address], 10/01/2024 08:24:19 03/21/20 25 10/01/2024 CBC WITH DIFFE RENTI AL/PL ATELE T neutrophils (absolute) 5.6 x10e3 /uL 1.4-7. 0 Not Available [facility] ([facility]) [address] [place], [address], 10/01/2024 08:24:19 10/01/19 25 10/01/2024 CBC WITH DIFFE RENTI AL/PL ATELE T lymphs (absolute) 2.7 x10e3 /uL 0.7-3. 1 Not Available [facility] ([facility]) [address] [place], [address], 10/01/2024 08:24:19 10/01/19 25 10/01/2024 CBC WITH DIFFE RENTI AL/PL ATELE T monocytes(ab solute) 0.7 x10e3 /uL 0.1-0. 9 Not Available [facility] ([facility]) [address] [place], [address], 10/01/2024 08:24:19 10/01/19 25 10/01/2024 CBC WITH DIFFE RENTI AL/PL ATELE T eos (absolute) 0.2 x10e3 /uL 0.0-0. 4 Not Available [facility] ([facility]) [address] [place], [address], 10/01/2024 08:24:19 10/01/19 25 10/01/2024 CBC WITH DIFFE RENTI AL/PL ATELE T baso (absolute) 0.1 x10e3 /uL 0.0-0. 2 Not Available [facility] ([facility]) [address] [place], [address], 10/01/2024 08:24:19 10/01/19 25 10/01/2024 CBC WITH DIFFE RENTI AL/PL ATELE T immature granulocytes 1 % notest ab. Not Available [facility] ([facility]) [address] [facility] [place], [address], 10/01/2024 08:24:19 10/01/19 25 10/01/2024 CBC WITH DIFFE RENTI AL/PL ATELE T immature granlilo (abs) 0.1 x10e3 /uL 0.0-0. 1 Not Available [facility] ([facility]) [address] [facility], [place], [address], 10/01/2024 08:24:19 02/25/20 24 03/09/2019 PFT, compl ete No observ ation record ed. [address] [place], [address], 02/27/2024 21:30:57 11/11/19 25 11/10/2024 XR, chest No observ ation record ed. [address], [address], 11/11/2024 09:12:50 11/11/19 25 11/10/2024 CT, chest , w/o contr ast No observ ation record ed. [place] [address], [place], [address], 11/22/2024 22:38:13 11/18/19 25 11/17/2024 XR, chest No observ ation record ed. [place] [address], [place], [address], 11/18/2024 10:16:53 11/24/19 25 11/23/2024 XR, chest , 2 view No observ ation record ed. [address], [address], 11/25/2024 14:59:46 11/25/19 25 11/23/2024 stres s echoc ardio gram with doppl er color flow (PROC ) No observ ation record ed. [address], [address], 11/25/2024 15:02:11 11/27/19 25 11/25/2024 XR, chest No observ ation record ed. [address], [place], [address], 11/29/2024 22:36:06 11/27/19 25 11/26/2024 CT, angio gram, chest , w/ contr ast No observ ation record ed. [address], [place], [address], 11/29/2024 22:36:06 11/29/19 25 11/28/2024 vicente can cardi olite stres s test (PROC ) No observ ation record ed. [address], [place], [address], 11/29/2024 21:46:22 11/29/19 25 11/28/2024 exerc ise stres s test No observ ation record ed. [address], [place], [address], 11/29/2024 22:36:06 11/29/19 25 11/28/2024 US, doppl er, venou s No observ ation record ed. [address], [place], [address], 11/29/2024 22:36:06 11/30/19 25 11/24/2024 bernabe r monit or No observ ation record ed. [address] [facility] [address], [place], [address], 11/29/2024 22:36:07 12/02/19 25 11/23/2024 US, [facility] ardio gram No observ ation record ed. [address], [place], [address], 12/02/2024 09:04:01 12/07/19 25 12/06/2024 XR, chest , 2 view No observ ation record ed. [address], [place], [address], 12/18/2024 22:45:30 01/09/20 25 01/08/2025 XR, chest No observ ation record ed. [address], [place], [address], 01/10/2025 12:57:14 01/28/20 25 01/27/2025 XR, chest No observ ation record ed. [address], [place], [address], 02/01/2025 12:24:59 02/07/20 25 02/06/2025 XR, chest , 2 view No observ ation record ed. [address] [facility], [place], [address], 02/07/2025 14:42:28 03/01/20 25 03/01/2025 XR, chest No observ ation record ed. [address], [place], [address], 03/02/2025 13:42:25 Result Notes None recorded. Problems Name Problem SNOMED Code Status Onset Date Resolution Date Notes Provider Name and Address Organization Details Recorded Time Chronic obstructi ve pulmonary disease 97639850 Active Not Available [facility] 3 17:06:31 Gastroeso phageal reflux disease 935990558 Active Not Available [facility] 3 17:06:31 Tobacco user 738564143 Active Not Available [facility] 3 17:06:31 Obesity 599121299 Active Not Available [facility] 3 17:06:31 Hyperlipi demia 81578132 Active Not Available [facility] 3 17:06:31 Depressiv e disorder 18811357 Active 2016 Not Available [facility] 3 17:06:31 Bronchiti s 30658610 Active 2016 Not Available [facility] 3 17:06:31 Low back pain 867208998 Active 2020 Not Available [facility] 3 17:06:31 At increased risk of nutrition al deficit 257765386 Active 2021 Not Available [facility] 3 17:06:31 HIV screening Active 2021 Not Available [facility] 3 17:06:31 Chronic hypoxemic respirato ry failure 404702147 Active 2023 Satinder Valdez MD Attn: Accounting ,[address] [facility], [place], [address] , [place] - [facility] 4 22:10:22 HIV screening declined 45462376156 9100 Active 2023 Satinder Valdez MD Attn: Accounting ,[address] [place], [address] , [place] - [facility] 4 14:50:08 Mammogram declined 242623559 Active 2023 Satinder Valdez MD Attn: Accounting ,[address] [facility], [place], [address] , [place] - [facility] 4 14:50:09 [place]os[place] py declined 59826197110 9100 Active 2023 Satinder Valdez MD Attn: Accounting ,[address] [facility], [place], [address] , [place] [facility] 4 14:50:10 Influenza vaccinati on declined 001630035 Active 2023 Satinder Valdez MD Attn: Accounting ,[address] [facility], [place], [address] , [place] - [facility] 4 14:50:12 SARS-CoV- 2 vaccinati on declined 3358963850 Active 2023 Satinder Valdez MD Attn: Accounting ,[address] [facility], [place], [address] , [place] [facility] 4 14:50:13 Lung cancer screening declined 25208092829 750224 Active 2023 Satinder Valdez MD Attn: Accounting ,[address] [facility], [place], [address] , [facility] - [facility] 4 14:50:14 Coronary arteriosc lerosis 76012991 Active 2024 Catheteri zation normal LV 20 30% LAD [facility] Satinder Valdez MD Attn: Accounting ,[address] [facility], [place], [address] , [facility] - [facility] 5 13:29:16 Acute exacerbat ion of chronic obstructi ve pulmonary disease 371263666 Active 2024 ELODIA Rea, [place] - [facility] 5 14:54:32 Notes:Some problems listed i n Document: #[id number] could not be added to this patient's chart. Please review this document and add these problems to the patient's chart manually as needed. Problem Notes None recorded. Procedures Surgical History Date Name Laterality Status Provider Name and Address Organization Details Recorded Time Caesarean Section completed Jacki Gipson [place] - [facility] 11/16/2014 14:25:00 Cholecystectomy completed Jacki Gipson [place] [facility] 11/16/2014 14:25:00 Imaging Results None recorded. Procedure Notes None recorded. Medical Equipment None Reported. Allergies Allergen ID Allergen Name Allergen Category Reaction Reaction Severity Criticality Documentation Date Start Date Code Code System Note Provider Name and Address Organization Details Recorded Time 389710 codeine medicatio n itching moderate Not available 2024 2670 RxNorm [place]IA Hunt, [place] - [facility] 5 12:17:26 Medications Name Sig Start Date [...] TAKE 1 CAPSULE BY MOUTH TWICE DAILY active Not Available Not Available No t Available ipratropi um 0.5 mg-albute rol 3 [...] mg tablet TAKE 2 TABLETS BY MOUTH EVERY DAY FOR 5 DAYS active Not Available Not [...] 1 TABLET BY MOUTH EVERY 8 HOURS 2024 active Not Available Not Available Not Avai lable prednison e 50 mg tablet TAKE 1 TABLET BY MOUTH DAILY FOR 5 DAYS active [...] mg/3 mL solution for nebulizat ion INHALE 1 VIAL BY MOUTH EVERY 4 HOURS NEEDED FOR SHORTNES S OF BREATH 2024 active Not Available Not Available Not Avai lable lorazepam 1 mg tablet active Not Available Not Available Not Available levofloxa [...] Available doxycycli ne hyclate 100 mg tablet Take 1 tablet twice a day by oral route for 10 days. 03/12 completed Not Available Not Available Not Available [...] Updated DateTime 5 158.75 cm 34.3 kg/m2 73860.7 1 g 107 /min 93 % 93 % 138/76 mm[Hg] Wendy Reaves MA [place] [facility] 5 12:23:06 Date Recorded Body height Body mass index (BMI) Body weight Heart rate Oxygen saturation Oxygen saturation in Arterial blood by Pulse oximetry Systolic And Diastolic Provider Name and Address Organization Details Last Updated DateTime 5 158.75 cm 32.8 kg/m2 03721.2 5 g 110 /min 96 % 96 % 122/78 mm[Hg] Sylvia Baumann MA [facility] 5 14:08:31 Date Recorded Body height Body mass index (BMI) Body weight Heart rate Oxygen saturation Oxygen saturation in Arterial blood by Pulse oximetry Systolic And Diastolic Provider Name and Address Organization Details Last Updated DateTime 4 158.75 cm 31.1 kg/m2 69466.0 4 g 96 /min 98 % 98 % 120/66 mm[Hg] Jduy Tafoya MA [facility] 4 16:17:17 Date Recorded Body height Body mass index (BMI) Body weight Heart rate Oxygen saturation Oxygen saturation in Arterial blood by Pulse oximetry Systolic And Diastolic Provider Name and Address Organization Details Last Updated DateTime 5 158.75 cm 33.1 kg/m2 67934.9 2 g 110 /min 93 % 93 % 128/80 mm[Hg] Anabel Rose MA [facility] 5 14:37:40 Date Recorded Body height Body mass index (BMI) Body weight Oxygen saturation Oxygen saturation in Arterial blood by Pulse oximetry Heart rate Systolic And Diastolic Provider Name and Address Organization Details Last Updated DateTime 4 158.75 cm 32.8 kg/m2 44070.8 9 g 98 % 98 % 90 /min 124/72 mm[Hg] Wendy Ritchie MA [place] [facility] 12:38:08 Social History Question Answer Notes LastModified by Organizat ion Details LastModified Time Tobacco Smoking Status Current Every Day Smoker ELODIA Navarro, [facility] 11/16/2014 14:25:00 Do You Have An Advance [...] Time Tdap 11/17/2023 completed Sylvia Baumann MA [facility], [place] - [facility] 2024 09:41:35 Past Encounters Encounter ID Performer Location Encounter Start Date Encounter Closed Date Diagnosis/Indication Diagnosis SNOMED-CT Code Diagnosis ICD10 Code Diagnosis IMO Codes Diagnosis Note [id number] MARILEE Howard (Adult Med) [address] [place] [id number] 11/16/2014 14:11:25 11/16/2014 17:25:43 Chronic obstructive pulmonary disease 11982392 Gastroesop hageal reflux disease 938035169 Tobacco user 352026293 Obesity 906363457 Hyperlipidemia 03717174 [id number] MARILEE Howard (Adult Med) [address] [place] [id number] 02/25/2016 14:30:31 02/25/2016 18:01:33 Chronic obstructive pulmonary disease 98616979 J44.9 Gastroesop hageal reflux disease 712831251 K21.9 Hyperlipidemia 30090132 E78.5 Obesity 881700170 E66.9 Tobacco user 573750513 Z 72.0 Normal grief reaction 27 5679229 F43.20 [id number] MD Terri Almonte (Adult Med) [address] [place] [id number] 11/13/2016 14:27:12 11/13/2016 17:33:33 Chronic obstructive pulmonary disease 40690881 J44.9 Gastroesop hageal reflux disease 603286708 K21.9 Obesity 606675793 E66.9 Hyperlipidemia 83866317 E78.5 Depressive disorder 1260 9007 F32.89 grief reaction , lost mom last November (2015) [id number] MD Terri Almonte (Adult Med) [address] [place] [id number] 04/16/2017 15:05:45 04/20/2017 09:00:22 Chronic obstructive pulmonary disease 16424628 J44.9 Bronchitis 31948406 J40 Gastroesop hageal reflux disease 598272131 K21.9 Obesity 597042765 E66.9 Hyperlipidemia 78766310 E78.5 [id number] MD Terri Almonte (Adult Med) [address] [place] [id number] 03/16/2018 16:39:42 03/17/2018 10:11:16 Bronchitis 89919293 J40 Chronic ob structive pulmonary disease 92239102 J44.9 Depressive disorder 3548 9007 F32.89 grief reaction , lost mom last November) Tobacco user [id number] Z 72.0 Gastroesop hageal reflux disease 005268760 K21.9 Obesity 110336808 E66.9 Hyperlipidemia 41111627 E78.5 [id number] MD Terri Almonte (Adult Med) [address] [place] [address] [phone] 0 08/30/2018 16:13:03 08/31/2018 08:48:16 Bronchitis 28483759 J40 Tobacco user 220972902 Z 72.0 Chronic ob structive pulmonary disease 25269801 J44.9 Gastroesop hageal reflux disease 023349524 K21.9 Obesity 467888191 E66.9 Hyperlipidemia 56635326 E78.5 Depressive disorder 3548 9007 F32.89 grief reaction , lost mom last November) [id number] MD Terri Almonte (Adult Med) [address] [place] [address] [phone] 0 09/26/2019 10:47:45 09/27/2019 08:42:42 Chronic obstructive pulmonary disease 62309777 J44.9 Gastroesop hageal reflux disease 753848347 K21.9 Hyperlipidemia 81466710 E78.5 Tobacco user 625436634 Z 72.0 [id number] MD Terri Almonte (Adult Med) [address] [place] [address] [phone] 0 07/10/2020 08:17:48 07/10/2020 16:38:50 Chronic obstructive pulmonary disease 98356237 J44.9 Gastroesop hageal reflux disease 882243888 K21.9 Hyperlipidemia 54894055 E78.5 Tobacco user 514110012 Z 72.0 Depressive disorder 3548 9007 F32.89 grief reaction , lost mom last November (2015) [id number] MD Terri Almonte (Adult Med) [address] [place] [address] [phone] 0 12/12/2020 10:01:54 12/12/2020 13:53:29 Chronic obstructive pulmonary disease 08119405 J44.9 Gastroesop hageal reflux disease 922739578 K21.9 Hyperlipidemia 30496906 E78.5 Tobacco user 718279628 Z 72.0 Low back pain 644302541 M54.5 [id number] MD Terri Almonte (Adult Med) [address] [place] [address] [phone] 0 07/22/2021 14:57:13 07/22/2021 15:30:47 Chronic obstructive pulmonary disease 06026538 J44.9 Gastroesop hageal reflux disease 058389987 K21.9 Hyperlipidemia 81570940 E78.5 Tobacco user 217219873 Z 72.0 Obesity 880911281 E66.9 Renewal of prescription 757440891 Z76.0 Low back pain 193504044 M54.50 At increas ed risk of nutritional deficit 668197413 Z91.89 Depressive disorder 3548 7 F32.89 grief reaction , lost mom last November (2015) [id number] [facility] [address] [place] [address] [phone] 0 04/01/2022 16:13:01 04/02/2022 10:16:26 Bronchitis 29410281 J40 Chronic ob structive pulmonary disease 67220189 J44.9 Depressive disorder 3548 9007 F32.89 grief reaction , lost mom last November (2015) Gastroesop hageal reflux disease 413602721 K21.9 Hyperlipidemia 90908273 E78.5 Low back pain 800463138 M54.50 Obesity 917814533 E66.9 Tobacco user 039244232 Z 72.0 At increas ed risk of nutritional deficit 042673977 Z91.89 HIV screening 100195787 Z11.4 [id number] MD [facility] (Adult Med) [address] [place] [address] [phone] 0 08/07/2022 16:27:29 08/08/2022 15:12:17 Obesity 152336054 E66.9 BMI is 33.5.he has been advised to watch her diet, exercise and keep the weight down. Chronic ob structive pulmonary disease 74424832 J44.9 Stable.Wan ts to refill med. Depressive disorder 3548 9007 F32.89 Under the care of her psychiatri . Hyperlipidemia 29595508 E78.5 Low animal fat diet. Tobacco user 433709912 Z 72.0 Advised her to quit smoking. [facility] declined 3329735077 9109 Z53.20 She refused 08-07-2022 . Administra tion of diphtheria, pertussis, and tetanus vaccine 262399579 Z23 She refused 08-07-2022 . Influenza vaccination declined 890649799 Z28.21 She refused 08-07-2022 . Mammogram declined 31891 5004 Z53.20 She refused 08-07-2022 , Screening for malignant neoplasm of cervix 335228802 Z12.4 She refused 08-07-2022 . [id number] Rosi Begum MD [facility] (Adult Med) [address] [place] [address] [phone] 0 02/25/2023 16:38:06 02/26/2023 14:14:06 Osteoarthritis 484642183 M19.90 She said that she has arthritis , it huts when weather changes, wants shot term steroid to easy the pain of back. . Discussed with patient, that steroid has potential side effects as well. such as pathologic fracture, hyperglyce jacinto, bleeding ulcer, poor healing of wound, adrenal insufficie ncy just new a few, She understood . Chronic ob structive pulmonary disease 04353026 J44.9 Stable.Andrés ts to refill med.Advair is not on 340-B, will order dulera instead. Smoker 30635425 F17.200 Advised her to quit smoking. She declined LDCT, she smokes half pack/day for more than 40 years. She is aware of cigarettes smoking can cause permanent emphysema. cancer of lung, throat, or mouth and other diseases. Obesity 714780810 E66.9 BMI is 33.5.he has been advised to watch her diet, exercise and keep the weight down. As 02-25-23, BMI is down to 32.5. HIV screen ing declined 6549205588 37620 Z53.20 She declined 02-25-23. [id number] Rosi Begum MD [facility] (Adult Med) [address] [place] [address] 05/29/2023 14:29:10 06/02/2023 16:10:16 Chronic obstructive pulmonary disease 60224972 J44.9 Stable.Wan ts to refill med.Advair is not on 340-B, will order dulera instead. She wants advair inhaler refill, but it is not on the list. and this provider contacted medicare pharmacy no maintenanc e inhaler yael 340-B list any more. Smoker 56868651 F17.200 Advised her to quit smoking. She declined LDCT, she smokes half pack/day for more than 40 years. She is aware of cigarettes smoking can cause permanent emphysema. cancer of lung, throat, or mouth and other diseases. Hyperlipidemia 96175440 E78.5 Low animal fat diet. Obesity 562161445 E66.9 BMI is 33.5.he has been advised to watch her diet, exercise and keep the weight down. As 02-25-23, BMI is down to 32.5. As 05-29-23, BMI down to 32. Mammogram declined 34868 5004 Z53.20 She refused 08-07-2022 , She declined 05-29-23. Cervical c ancer Papanicolaou smear screening declined 9189557061 18360 Z53.20 She declined 05-29-23. Colon canc er screening declined 6284924132 9109 Z53.20 She refused 08-07-2022 . She declined 05-29-23. HIV screen ing declined 7126788632 16204 Z53.20 She declined 02-25-23. She declined 05-29-23. [id number] Satinder Valdez MD [facility] [place] [address] [place] [address] 01/07/2024 14:34:10 01/07/2024 16:25:53 Depression screening 725628976 Z13.31 Chronic ob structive pulmonary disease 20064030 J44.9 Chronic hy poxemic respiratory failure 858223895 J96.11 Hyperlipidemia 87547664 E78.5 [id number] Satinder Valdez MD Terri (Adult Med) [address] [place] [address] 44160-508 0 02/24/2024 15:59:57 02/24/2024 17:12:39 Smoker 40449145 F17.200 Chronic ob structive pulmonary disease 56206999 J44.9 [id number] Satinder Valdez MD [facility] (Adult Med) [address] [place] [address] 47656-027 0 04/29/2024 12:05:20 04/29/2024 13:35:35 Hyperlipidemia 30782461 E78.5 Chronic ob structive pulmonary disease 72842671 J44.9 HIV screen ing declined 9588267325 19558 Z53.20 Mammogram declined 93114 5004 Z53.20 Colonoscopy declined 285 3533074 52499 Z53.20 Influenza vaccination declined 434128504 Z28.21 SARS-CoV-2 vaccination declined 6162506393 Z28.21 Lung cance r screening declined 5267819843 2294058 Z53.20 [id number] Satinder Valdez MD [facility] (Adult Med) [address] [place] [address] [phone] 0 2024 11:44:40 2024 13:19:13 Body mass index 30+ - obesity 483937614 Z68.34 Hyperlipidemia 65374844 E78.5 Long-term drug therapy 067619497 Z79.899 Chronic ob structive pulmonary disease 46363031 J44.9 Gastroesop hageal reflux disease 690562767 K21.9 [id number] Satinder Valdez MD [facility] (Adult Med) [address] [place] [address] [phone] 0 01/25/2025 13:52:46 01/25/2025 14:50:31 Body mass index 30+ - obesity 780253996 Z68.32 160507 Obese class I 1567260287 03858 E66.811 7322362903 Smoker 88513908 F17.200 Chronic ob structive pulmonary disease 72215421 J44.9 Repeated prescription 18 6947019 Z76.0 219432 Hyperlipidemia 14121049 E78.5 Coronary arteriosclerosis 25498184 I25.10 20534939 [id number] Satinder Valdez MD [facility] [place] [address] [place] [address] 02/23/2025 14:28:34 02/23/2025 14:55:44 Acute exacerbation of chronic obstructive pulmonary disease 555479188 J44.1 868785 Obese class I 1215194308 95239 E66.811 E66.3 0290110096 Coronary arteriosclerosis 90848235 I25.10 58371084 Hyperlipidemia 31744558 E78.5 Health Concerns Section Related Observation LastModified by Organization Detai ls LastModified Time None Recorded Concern Status LastModified by Organization Details LastModified Time None Recorded Advance Directives Directive N: Payers Insurance Date Sequence Insurance Name Policy Number Policy Ford Covered Member ID Ford Member ID Guarantor Name 01/25/2025 1 [place] WHEN MEDICARE OR MEDICARE REPLACEMENT PRIMARY) Minnie Anguiano [id number] Minnie Anguiano 01/25/2025 1 [place] - [facility] Minnie Anguiano [id number] Minnie Anguiano 04/14/2022 1 UNSPECIFIED KISHOR T PAYOR Minnie Anguiano 01/25/2025 1 [place] Minnie Anguiano [id number] Minnie Anguiano 01/25/2025 1 [facility] [place] [facility] [place] (MEDICARE REPLACEMENT/ADVANT AGE) Minnie Anguiano [id number] Minnie Anguiano 01/25/2025 1 [facility] PRIOR TO 01/10/2021 (MEDICAID REPLACEMENT - HMO) Minnie Anguiano [id number] Minnie Anguiano 01/25/2025 1 [facility] ON OR AFTER 07/13/2020 - DUAL ELIGIBLE (MEDICARE REPLACEMENT/ADVANT AGE - HMO) [id number] Minnie Anguiano [id number] Minnie Anguiano 01/25/2025 1 [facility] PRIOR TO 01/10/2021 (MEDICAID REPLACEMENT - HMO) Minnie Anguiano [id number] Minnie Anguiano 03/30/2025 1 [facility] - DOS ON OR AFTER 2020 - DUAL ELIGIBLE (MEDICARE REPLACEMENT/ADVANT AGE - HMO) [id number] Minnie Schultz Silvio [id number] Minnie Anguiano 03/30/[address] [facility] - DUAL ELIGIBLE - [place] (MEDICARE REPLACEMENT/ADVANT AGE) Minnie Anguiano [id number] Minnie Anguiano 01/25/2025 1 [facility] PRIOR TO 01/10/2021 (MEDICAID REPLACEMENT - HMO) Minnie Anguiano [id number] Minnie Anguiano 01/25/2025 1 [place] [facility] Minnie Anguiano [id number] Minnie Anguiano 01/25/2025 1 [place] Minnie Anguiano [id number] Minnie Anguiano 01/25/2025 2 [place] WHEN [place]ARE OR MEDICARE REPLACEMENT PRIMARY) Minnie Anguiano [id number] Minnie Anguiano 01/25/2025 3 [place]: N [facility] Minnie Anguiano [id number] Minnie Anguiano 01/25/2025 2 [place] [facility] Minnie Anguiano [id number] Minnie Anguiano Notes Date Note Type Note Provider Name and Address Organization Details Recorded Time 02/24/2024 text/html ER for a COPD flare-up we do not have the records she is doing a little bit better she just quit smoking about 4 days ago she has not had any chest pain breathing has improved Satinder Valdez MD Attn: Accounting[address] [facility], [place], [address], [facility] 02/24/2024 21:44:51 04/29/2024 text/html COPD she has been doing pretty good with that stable. Dyslipidemia needs her atorvastatin refilled she can do better on a low-fat Satinder Valdez MD Attn: Accounting[address] [facility], [place], [address], [facility] 04/29/2024 14:50:42 2024 text/html COPD has been doing fairly well. Dyslipidemia she quit taking atorvastatin can not really tell me why rhinitis doing good on fluticasone. GERD denies any heartburn Satinder Valdez MD Attn: Accounting[address] [facility], [place], [address], [facility] 2024 16:22:07 01/25/2025 text/html Here for follow up of medical problems she has been kind of bouncing and out of the hospital with shortness of breath there working on some atrial tachycardia with Cardiology and maximizing her medications for her COPD. She would have a heart catheterization in 12/18/2023 with nothing new to be intervene on she has had the atrial tachycardia high anxiety and she is working with Cardiology and with her contract officer best that she can not her anxiety gets pretty wound up how when she starts having her breathing difficulties. Satinder Valdez MD Attn: Accounting,[address] [facility], [place], [address], [facility] 02/05/2025 13:31:35 02/23/2025 text/html COPD she is in a little bit of exacerbation CAD no chest pain anxiety is high Satinder Valdez MD Attn: Accounting[address] [facility], [place], [address], [facility] 02/25/2025 11:52:26 OBGyn Episode No OBEpisode recorded.
--- OUTSIDE RECORDS SUMMARY | 2025-04-10 09:43 | XMS_ITS | Clinical Summary ---
Author Organization [facility] Address [address] [place] [address] Care Team Providers Care Dog Food Dough Mixer Name Role Phone Ethan Cerrato Primary Care Provider + Source Comments [facility],non-owned Affiliates and Associated Physician Practices is amultiple site organization consisting of ambulatory clinics and hospital sitesin [place], [place], [place] and [place]. This disclosure is being madepursuant to the Care Everywhere program and may not contain all information available regarding this patient. Last updated 18.[facility] Allergies No known active allergies Medications * [...] on file Legal Sex Female 8:53 AM WET PRIMER POWDER BLENDER Gender Identity Not on file Sexual Orientation Not on file Last Filed Vital Signs Vital Sign Reading Time Taken Comments Blood Pressure 122/80 07/25/2017 10:47 AM WET PRIMER POWDER BLENDER Pulse 80 07/25/2017 10:47 AM WET PRIMER POWDER BLENDER Temperature 36.8 C (98.2 F) 07/25/2017 10:47 AM WET PRIMER POWDER BLENDER Respiratory Rate 20 07/25/2017 10:47 AM WET PRIMER POWDER BLENDER Oxygen Saturation 94% 07/25/2017 10:47 AM WET PRIMER POWDER BLENDER Inhaled Oxygen Concentration - - Weight 74.8 kg (165 lb) 07/25/2017 10:47 AM WET PRIMER POWDER BLENDER Height 160 cm (5' 3) 07/25/2017 10:47 AM WET PRIMER POWDER BLENDER Body Mass Index 29.23 07/25/2017 10:47 AM WET PRIMER POWDER BLENDER Plan of Treatment Health Maintenance Due Date [...] patient's age to complete this topic Insurance [facility] Care Teams Dog Food Dough Mixer Relationship Specialty Start Date End Date Ethan Cerrato PA [address] [place] [address] PCP - General Physician Assistant Press Operator 07/25/17
[2025-04-10 09:46] LABS: Magnesium 2.0 mg/dL (1.6-2.3)
[2025-04-10] MEDS: SODIUM CHLORIDE 0.9% IV 1,000 ML 999 ML IV CONT (09:47)
[2025-04-10 10:10] LABS: Influenza A QL RT-PCR Positive (Negative); Influenza B QL RT-PCR Negative (Negative); SARS-CoV-2 RNA PCR Negative (Negative)
--- NOTE | 2025-04-10 10:57 | ED_ITS ---
HPI - SOB/Dyspnea General Chief Complaint: Shortness of Breath/Dyspnea Stated Complaint: SOB, fever Time Seen by Provider: 04/10/25 08:58 Source: patient, EMS, RN notes reviewed and old records reviewed Mode of arrival: ambulatory Limitations: no limitations History of Present Illness HPI Narrative: This is a 64 year old female with history of anxiety and COPD who presents for evaluation of fever and worsening shortness of breath. She states she was discharged from [facility] on Thursday for COPD exacerbation. She states she started having difficulty 2 days later. She has been having subjective fever, sinus congestion, worsening cough and shortness of breath. She has been taking her steroids and neb treatments. She took levalbuterol prior to arrival Related Data Home Medications ?Medication ?Instructions ?Recorded ?Confirmed ?Last Taken ?Type umeclidinium 62.5 mcg/actuation 1 inh inhalation DAILY 10/26/23 04/10/25 04/02/25 History blister powder for inhalation (Incruse Ellipta) fluticasone propionate 115 2 puff inhalation Q12H /02/0304/10/25 04/02/25 History mcg-salmeterol 21 mcg/actuation HFA inhaler albuterol sulfate 2.5 mg/3 mL 2.5 mg continuous nebuli zation Q8H 04/03/25 04/10/25 04/02/25 History (0.083 %) solution for nebulization PRN shortness of b reath unrelieved by inhaler albuterol sulfate 90 mcg/actuation 1 inh inhalation QI D PRN shortness 04/03/25 04/10/25 04/02/25 History aerosol inhaler of breath or wheezing Allergies Allergy/AdvReac Type Severity Reaction Status Date / Time codeine AdvReac Itching Verified 04/10/25 13:28 [facility] Past Medical History Medical History Anxiety Asthma Coronary artery disease (10/2023) Nuclear stress test showed a large, severe non reversible infarcts including multiple meyers of the apex and mid anterior and mid posterior segments consistent with infarct with no reversible ischemia. Tobacco abuse Chronic obstructive pulmonary disease Surgical History Surgical History History of cholecystectomy History of section Family History Family History Mother Cerebrovascular accident Sibling FH: CABG (coronary artery bypass surgery) Father Stented coronary artery Social History Social History Social History: Surrogate medical decision maker: Meghan Babcock, daughter. Code status: Full code. Smoking packs per day: 0.5 Smoking cigarettes per day: 10.0 Years smoked: 45 Smoking pack-years: 22.50 Smoking status: Current every day smoker Tobacco type: cigarettes Second hand tobacco smoke exposure: No Alcohol intake: never Drinks per week: 28 Substance use: former Substance use type: marijuana Other substance usage details: tried one time and quit Last use: 10/11/24 Do You Feel Safe in your Home?: Yes Lack of Transportation: No Lack of Food: Never True Current Housing: I Have Housing Concerned About Future Housing: No Difficulty Paying Gas/Electric Bills: No Difficulty Paying for Meds: No Currently Unemployed: No Education: High School Diploma/GED Difficulty w/ Childcare or Family Care: No Living arrangements: with family Spiritual care concerns: No Exam 2 Const: General: alert and ill appearing Orientation/consciousness: patient oriented x3 Other: mild distress HENMT: Head: normal to inspection Mouth: Yes Normal oral and palatal mucosa present, Yes lip normal and Yes moist mucous membranes Eyes: EOM: EOMs intact bilaterally Resp: Effort & Inspection: labored Auscultation: wheezes expiratory wheezes and throughout Cardio: Rate: tachycardic Rhythm: regular rhythm Heart sounds: Murmur heart sound present GI: GI Palp: Yes Soft to palpation, No Tenderness to palpation present (GI), No Guarding due to palpation present (GI) and No Rigid due to palpation A uscultation: normal bowel sounds Back/Spine/Pelvis: Back: no CVA tenderness Skin: General skin exam: normal color Neuro: General: patient oriented x3, moves all extremities and CN's II-XI intact bilaterally Extrem: General: no pedal edema Psych: Mental Status: mental status grossly normal Affect: normal affect Attitude: cooperative Course Reevaluation(s) Reevaluation #1: She states that she feels better Date: 04/10/25 Time: 10:59 Vital Signs Vital signs: Vital Signs Temperature 98.8 F 04/10/25 08:45 Pulse Rate 135 H 04/10/25 08:45 Respiratory Rate 22 H 04/10/25 08:45 Blood Pressure 111/70 04/10/25 08:45 Pulse Oximetry 97 04/10/25 08:45 Oxygen Delivery Nasal Cannula 04/10/25 08:45 Oxygen Flow Rate 2 04/10/25 08:45 Temperature 98.7 F 04/10/25 17:30 Pulse Rate 120 H 04/10/25 17:10 Respiratory Rate 21 H 04/10/25 17:10 Blood Pressure 96/52 L 04/10/25 16:00 Pulse Oximetry 95 04/10/25 16:30 Oxygen Delivery Nasal Cannula 04/10/25 16:30 Oxygen Flow Rate 2 04/10/25 16:30 MDM - SOB/Dyspnea MDM Narrative Medical decision making narrative: PAtient presented with worsening shortness of breath and new URI symptoms. She states she uses levalbuterol instead of albuter so I ordered 1.25 mg neb dose , chest xray, flu/covid swab. She was also given 1 liver IV fluids. She is tachycardic which she states is normal for her. lactic acid and blood cultures ordered. She was found to be positive for influenza A so I ordered tamiflu. Pharmacy renally dosed. She reports she feels better. She continues to have wheezing and tachycardia so will admit. She is agreeable. She has been accepted by hospitalist service. Differential Diagnosis Differential diagnosis: Likely acute exacerbation of chronic obstructive airways disease, congestive heart failure, community acquired pneumonia, asthma with exacerbation and other (viral syndrome) Medical Records Attestation: I reviewed the patient's medical records. Lab Data Attestation: I reviewed the patient's lab results. 04/10/25 09:03 04/10/25 09:03 Labs: Lab Results 04/10/25 04/10/25 04/10/25 Range/Units 09:03 09: 09:34 WBC 10.7 H (4.5-10.0) K/mm3 RBC 4.71 (4.2-5.4) M/mm3 Hgb 13.9 (12.0-15.0) g/dL Hct 44.2 (37.0-47.0) % MCV 93.8 (80-100) fl MCH 29.5 (26-34) pg MCHC 31.4 L (32-36) g/dl RDW 13.4 (11.5-14.5) % Plt Count 250 (150-375) k/mm3 MPV 10.7 H (7.4-10.4) fl Immature Gran % (Auto) 1.5 H (0-0.5) % Neut % (Auto) 75.3 H (45.5-73.1) % Lymph % (Auto) 13.1 L (18.3-44.2) % Pinal % (Auto) 9.7 H (2.6-8.5) % Eos % (Auto) 0.2 (0-4.4) % Baso % (Auto) 0.2 (0.2-1.2) % Lymph # (Auto) 1.40 (0.9-3.2) K/mm3 Pinal # (Auto) 1.0 H (0.1-0.6) K/mm3 Eos # (Auto) 0.0 (0-0.3) K/mm3 Baso # (Auto) 0.0 (0.0-0.1) K/mm3 Abs Immat Gran (auto) 0.16 H (0.00-0.031) K/mm3 Absolute Neuts (auto) 8.0 H (1.3-6.7) K/mm3 Absolute Nucleated RBC 0.000 (0.0-0.012) K/mm3 Nucleated RBC % 0.0 (0.0-0.2) % Methemoglobin 0.2 (0-1.5) %THb Sodium 135 L (137-145) mmol/L Potassium 3.5 (3.4-5.0) mmol/L Chloride 99 (98-107) mmol/L Carbon Dioxide 27 (22-30) mmol/L Anion Gap 9 (4-12) mmol/L BUN 15 (7-17) mg/dL Creatinine 1.08 H (0.7-1.0) mg/dL Estim Creat Clear Calc 52 ml/min Estimated GFR 51 L (59 - ) Glucose 100 (65-110) mg/dL Lactic Acid 1.4 (0.7-2.0) mmol/L Calcium 8.7 (8.4-10.2) mg/dL Magnesium 2.0 (1.6-2.3) mg/dL Total Bilirubin 0.3 (0.2-1.3) mg/dL AST 31 (14-36) U/L ALT 33 (6-35) U/L Alkaline Phosphatase 51 (38-126) U/L Total Protein 6.3 (6.3-8.2) g/dL Albumin 3.9 (3.5-5.1) g/dL Influenza A (RT-PCR) Positive A (Negative) Influenza B (RT-PCR) Negative (Negative) SARS-CoV-2 RNA (RT-PCR) Negative (Negative) ABG Data ABG results: 04/10/25 09:34 Puncture Site Right radial ABG pH 7.449 ABG pCO2 40.8 ABG pO2 93.7 ABG PO2/FiO2 Ratio 3.35 ABG HCO3 27.7 H ABG O2 Saturation 97.4 ABG O2 Content 19.9 ABG Base Excess 3.4 A-a Gradient 57.8 Oxyhemoglobin 96.1 Carboxyhemoglobin 1.5 Reduced Hemoglobin 2.2 Total Hemoglobin 14.7 O2 Delivery Device Nasal cannula O2 Liters/Min 2.0 FiO2 28 Imaging Data Radiologist's impression: ITS Impressions Chest X-Ray 04/10/25 09:22 IMPRESSION: 1. No definite acute cardiopulmonary findings given portable technique. Can consider PA and lateral films with deep inspiration. ECG Data EKG #1: Attestation: I personally reviewed and interpreted this ECG as follows: ECG completion date: 04/10/25 ECG completion time: 08:54 EKG Interpretation: tachycardia (125), sinus rhythm and PACs Discharge Plan Discharge Clinical Impression: Acute exacerbation of chronic obstructive pulmonary disease, Influenza A Patient Disposition: Still a Patient Condition: Stable
[2025-04-10] MEDS: OSELTAMIVIR PHOSPHATE 75 MG CAPSULE PO (11:00)
--- NOTE | 2025-04-10 11:06 | PC.NURSE ---
Dr Tolentino notified that pt takes Cardizem 180 mg ER at home. This RN informed to hold on Cardizem order. Dr Tolentino also informed that pt is very claustrophobic and is asking for IV antianxiety meds. No orders received at this time
[2025-04-10] MEDS: LORazepam (*CRX) 0.5 MG TABLET PO (12:02)
--- NOTE | 2025-04-10 12:05 | PC.NURSE ---
Patient requesting anxiety medication for extreme fear of elevator rides. [place] RN asked ED MD and ED MD refused medication at this time. This RN caught Hospitalist MD Kaplan coming out of patients room and requested anxiety medication for patient. MD Kaplan verbal ordered ativan for patient to transfer to IMU unit. Patient has received anxiety medication and RN placed a cool washcloth over patients eyes to help with anxiety over elevator ride. Pt belongings are with patient and potline monitor is in place.
--- NOTE | 2025-04-10 12:10 | PM.IMHP ---
H&P: HPI History of Present Illness Date/Time: 04/10/25 12:10 Chief Complaint: Worsening shortness of breath Narrative: 64-year-old female with past medical history of chronic respiratory failure, COPD on p.r.n. home O2, recently discharged from the hospital after being treated for COPD exacerbation, who continues to smoke presented with worsening shortness of breaths. She has been having body aches, chills starting Thursday. Denies any sick contacts. Continues to smoke. Presented to the ER. Chest x-ray this admission was unremarkable. Tested positive for influenza A Review of Systems Review of Systems: All systems reviewed & are unremarkable except as noted in HPI and below PMFSH Past Medical History Medical History Anxiety Asthma Coronary artery disease (10/2023) Nuclear stress test showed a large, severe non reversible infarcts including multiple meyers of the apex and mid anterior and mid posterior segments consistent with infarct with no reversible ischemia. Tobacco abuse Chronic obstructive pulmonary disease Surgical History Surgical History History of cholecystectomy History of section Family History Family History Mother Cerebrovascular accident Sibling FH: CABG (coronary artery bypass surgery) Father Stented coronary artery Social History Social History Social History: Surrogate medical decision maker: Meghan Babcock, daughter. Code status: Full code. Smoking packs per day: 0.25 Smoking cigarettes per day: 5.0 Years smoked: 47 Smoking pack-years: 11.75 Smoking status: Current every day smoker Tobacco type: cigarettes Second hand tobacco smoke exposure: No Alcohol intake: former Drinks per week: 28 Substance use: never Substance use type: does not use Last use: 10/11/24 Do You Feel Safe in your Home?: Yes Lack of Transportation: No Lack of Food: Never True Current Housing: I Have Housing Concerned About Future Housing: No Difficulty Paying Gas/Electric Bills: No Difficulty Paying for Meds: No Currently Unemployed: No Education: High School Diploma/GED Difficulty w/ Childcare or Family Care: No Living arrangements: with family Spiritual care concerns: No Meds Home Medications and Allergies Home Medications ?Medication ?Instructions ?Recorded ?Confirmed ?Type umeclidinium 62.5 mcg/actuation 1 inh inhalation DAILY 10/26/23 04/03/25 History blister powder for inhalation (Incruse Ellipta) aspirin 81 mg chewable tablet 81 mg PO DAILY@0800 #30 tabs 11/24/24 04/03/25 Rx (Children's Aspirin) nicotine 21 mg/24 hr daily 1 patch transdermal DAILY #14 ea 11/24/24 04/03/25 Rx transdermal patch (Nicoderm CQ) rosuvastatin 20 mg tablet 20 mg PO EVENING #30 tabs 11/24/24 04/03/25 Rx buspirone 10 mg tablet 10 mg PO Q8H #90 tabs 11/29/24 04/03/25 Rx diltiazem HCl 180 mg 180 mg PO DAILY #30 caps 11/29/24 04/03/25 Rx capsule,extended release 24 hr (Cartia XT) levalbuterol HCl 1.25 mg/3 mL 1.25 mg (3 mL) inhalation Q4H PRN 11/29/24 04/03/25 Rx solution for nebulization shortness of breath or wheezing #72 mL fluticasone propionate 115 2 puff inhalation Q12H 12/06/24 04/03/25 History mcg-salmeterol 21 mcg/actuation HFA inhaler albuterol sulfate 2.5 mg/3 mL 2.5 mg continuous nebulization Q8H 04/03/25 04/03/25 History (0.083 %) solution for nebulization PRN shortness of breath unrelieved by inhaler albuterol sulfate 90 mcg/actuation 1 inh inhalation QID PRN shortness 04/03/25 04/03/25 History aerosol inhaler of breath or wheezing doxycycline hyclate 100 mg tablet 100 mg PO Q12H 5 days #10 tabs 04/04/25 Rx prednisone 20 mg tablet 40 mg (2 x 20 mg) PO DAILY #10 tabs 04/04/25 Rx Allergies Allergy/AdvReac Type Severity Reaction Status Date / Time codeine AdvReac Itching Verified 03/01/25 04:38 Vital Signs Vital Signs - 24 hr 04/10/25 08:45 04/10/25 09:06 04/10/25 09:42 Temperature 98.8 F Pulse Rate 135 H 122 H Respiratory Rate 22 H 28 H Blood Pressure 111/70 Pulse Oximetry 97 97 Oxygen Delivery Nasal Cannula Nasal Cannula Oxygen Flow Rate 2 2 04/10/25 09:48 04/10/25 09:51 04/10/25 09:53 Temperature Pulse Rate 117 H 116 H 119 H Respiratory Rate 28 H 18 22 H Blood Pressure Pulse Oximetry 100 96 Oxygen Delivery Oxygen Flow Rate 04/10/25 10:07 04/10/25 10:24 04/10/25 10:38 Temperature Pulse Rate 125 H 105 H 118 H Respiratory Rate 31 H 24 H 25 H Blood Pressure 113/87 Pulse Oximetry 97 100 98 Oxygen Delivery Oxygen Flow Rate 04/10/25 10:45 04/10/25 10:47 04/10/25 11:00 Temperature Pulse Rate 116 H 128 H 114 H Respiratory Rate 26 H 29 H 25 H Blood Pressure 115/58 L Pulse Oximetry 100 88 L 95 Oxygen Delivery Oxygen Flow Rate 04/10/25 11:24 04/10/25 11:30 04/10/25 11:32 Temperature Pulse Rate 128 H 129 H 138 H Respiratory Rate 28 H 26 H 26 H Blood Pressure Pulse Oximetry 98 95 96 Oxygen Delivery Oxygen Flow Rate 04/10/25 11:44 Temperature Pulse Rate 147 H Respiratory Rate 28 H Blood Pressure 133/77 Pulse Oximetry 94 Oxygen Delivery Oxygen Flow Rate Exam Narrative: Looks anxious, Const: Other: Looks anxious, feeling short of breath HENMT: Mouth: Yes moist mucous membranes Eyes: Sclera: sclerae normal Neck: Neck: supple Resp: Other: Bilateral decreased breath sounds, no wheezing heard Cardio: Rate: tachycardic Rhythm: regular rhythm GI: GI Palp: Yes Soft to palpation Auscultation: normal bowel sounds Skin: General skin exam: normal color Neuro: Speech: normal speech Extrem: General: normal to inspection Other: No edema Psych: Mental Status: mental status grossly normal H&P: Results Labs Labs: Short CBC 04/10/25 Range/Units 09:03 WBC 10.7 H (4.5-10.0) K/mm3 Hgb 13.9 (12.0-15.0) g/dL Hct 44.2 (37.0-47.0) % Plt Count 250 (150-375) k/mm3 [facility] 04/10/25 09:03 Sodium 135 L Potassium 3.5 Chloride 99 Carbon Dioxide 27 BUN 15 Creatinine 1.08 H Glucose 100 Calcium 8.7 Liver Function 04/10/25 Range/Units 09:03 Total Bilirubin 0.3 (0.2-1.3) mg/dL AST 31 (14-36) U/L ALT 33 (6-35) U/L Alkaline Phosphatase 51 (38-126) U/L Albumin 3.9 (3.5-5.1) g/dL Assessment and Plan Assessment and plan (1) Anxiety: Code(s): F41.9 - Anxiety disorder, unspecified Status: Acute (2) Influenza A: Code(s): J10.1 - Influenza due to other identified influenza virus with other respiratory manifestations Status: Acute (3) Acute exacerbation of chronic obstructive pulmonary disease: Code(s): J44.1 - Chronic obstructive pulmonary disease with (acute) exacerbation Status: Acute (4) Acute hypoxic on chronic hypercapnic respiratory failure: Code(s): J96.01 - Acute respiratory failure with hypoxia; J96.12 - Chronic respiratory failure with hypercapnia Status: Acute (5) Tobacco abuse: Code(s): Z72.0 - Tobacco use Status: Chronic Plan 64-year-old female with past medical history of chronic respiratory failure, COPD, ongoing smoking presenting with worsening shortness of breaths. Tested positive for influenza A. 1. Acute on chronic respiratory failure: Secondary to influenza a infection Admitted to telemetry medicine Isolation precautions Will start on Tamiflu Monitor O2 saturations and hemodynamics Resume bronchodilators Pulmonary consult Add nicotine patch for ongoing smoking, smoking cessation counseling Solu-Medrol Q 8 p.r.n. No need for antibiotic at the moment Mild leukocytosis, will monitor 2. History of anxiety: Will resume home dose buspirone but med reconciliation is done 3. DVT prophylaxis: Heparin subQ 4. Code status: Full 5. Disposition: Admit to [facility] Quality VTE Prophylaxis VTE prophylaxis: pharmacologic ordered Hospitalist MIPS Advance Care Plan I have confirmed that the patient's Advanced Care Plan is present, code status is documented, or surrogate decision maker is listed in patient medical record.: Yes Medication Reconciliation I have utilized all available resources to obtain, update and review the patients current medications (includes all prescriptions, OTC, herbals, cannabis, and nutritional supplements).: Yes
--- NOTE | 2025-04-10 12:45 | ADMGEN ---
This patient, Minnie Anguiano, was admitted to IMU Room 207-01 @ 1210. Patient oriented to hospital policies and general routines including ID bracelet, bed and alarms, visiting hours, pain management, procedures, bathroom and other care routines, personal items, smoking policy, room service/diet, and visiting hours. + Flu on isolation Information on how to activate the Rapid Response Team has been discussed. Patient/Family are encouraged to report perceived risks to care and to ask questions if they do not understand what they are told or what they should do.
--- NOTE | 2025-04-10 12:58 | PM.CNPUL ---
Assessment and Plan Assessment and plan (1) Influenza A: Code(s): J10.1 - Influenza due to other identified influenza virus with other respiratory manifestations Status: Acute Assessment and Plan: Patient presents with 3 days history of fever, chills, body aches, sinus congestion, cough with phlegm, shortness of breath with no hemoptysis, white blood cell count 10.7, eosinophils 0.2%, creatinine 1.08, chest x-ray without focal infiltrates. ABG on 2 L 7.45/41/94. No evidence of hypercarbic respiratory failure Patient has influenza A Plan: Continue Tamiflu 75 mg p.o. b.i.d., 1st dose given 04/10 at 11:00 a.m.. Would continue at least 5 days and reassess and if she is still symptomatic or develops severe disease would continue for total of 10 days. I have discontinued systemic steroids as patients with influenza have worse outcome with systemic steroids. I will check a procalcitonin. Currently there is no evidence of concurrent bacterial infection. Blood cultures are pending. Will follow with you. (2) Chronic obstructive pulmonary disease: Qualifiers: COPD type: COPD with acute exacerbation Qualified Code(s): J44.1 - Chronic obstructive pulmonary disease with (acute) exacerbation Code(s): J44.9 - Chronic obstructive pulmonary disease, unspecified Status: Acute Assessment and Plan: GOLD group E COPD Patient tells me she smoked 1 PPD from age 16 to recently and currently is smoking 0.5 pack for total 48 pack years. She is exposed to no secondhand smoke. She has no occupational exposures. I have no PFTs. CT scan of the chest on 11/10/2024 and 11/26/2024 with moderate to severe apical predominant centrilobular emphysema. On a good day she can walk 0.5 block. One year ago she could walk 3 blocks. She was prescribed home oxygen approximately 1 year ago but only uses it sporadically at night at 2 L NC. Maintained on Incruse Ellipta 62.5 for many years. 01/08/2025: Outpatient COPD exacerbation. 01/27/2025 Outpatient COPD exacerbation treated with prednisone and antibiotics. 02/06/2025 Outpatient COPD exacerbation due to running out of albuterol. Treated with prednisone and doxycycline. 03/01/2025 Outpatient COPD exacerbation precipitated by exposure to the hot air. Treated with prednisone. 04/03/2025 through 04/04/2025 admitted to the hospital with COPD exacerbation treated with steroids and antibiotics and discharged on 5 days of prednisone. Currently admitted with influenza a. She has expiratory wheezes. She has a history of atrial tachycardias which are provoked by beta agonist. Her heart rate right now is 135. Plan: I will discontinue all beta agonists and monitor her clinically on ipratropium 0.5 mg nebulized q.4 hours. Steroids are contraindicated with acute influenza. (3) Tobacco abuse: Code(s): Z72.0 - Tobacco use Status: Chronic Assessment and Plan: 04/10/25: She has had multiple hospitalizations and outpatient exacerbations and continues to smoke Half a pack a day. I have told her the cigarettes are killing her and she must quit. plan: Nicotine patch. CT angiogram on 11/10/2024 and 11/26/2024 with atelectasis versus nodule in the right upper lobe. Plan: I will repeat a CT of the chest without contrast. History of Present Illness History of Present Illness Consult date: 04/10/25 Chief complaint: acute copd exacerbation,tachycardia,influenza Narrative: 04/10/2025: This is a new pulmonary consult for COPD and influenza a. 64-year-old with a history of asthma and COPD, tobacco use, atrial tachycardia and anxiety. Patient tells me she smoked 1 PPD from age 16 to recently and currently is smoking 0.5 pack for total 48 pack years. She is exposed to no secondhand smoke. She has no occupational exposures. On a good day she can walk 0.5 block. One year ago she could walk 3 blocks. She was prescribed home oxygen approximately 1 year ago but only uses it sporadically at night at 2 L NC. Maintained on Advair 115-21 at 2 puffs b.i.d. and Incruse Ellipta 62.5 for many years. I had previously seen the patient during inpatient hospitalization. 11/25/2024 through 11/29/2024:? Patient admitted to [facility] with fast heart rate, palpitations and mild tachypnea.? Given that her tachycardia was her most predominant symptom and I did not feel she was having a COPD exacerbation, I stopped all beta agonist and placed her on ipratropium nebulizers and budesonide nebulizers.? CTA of the chest showed no PE with right upper lobe nodule versus scarring with no change compared to 11/10/2024.? Overnight oximetry and telemetry demonstrated an SVT consistent with an atrial tachycardia and the patient?s metoprolol was changed to diltiazem per cardiology.? Stress test was negative.? Overnight oximetry on 3 L demonstrated adequate saturations.? Home O2 assessment demonstrated she required no oxygen at rest or with activity.? She was discharged on Incruse Ellipta 62.5 q.day, rescue levalbuterol inhaler and nebulizer, buspare 10 TID, and Cardizem CD 180 q.day. Patient was to follow-up in 4 weeks and was a no-show to the [facility] on 12/21/2024. 01/08/2025: Outpatient COPD exacerbation. 01/27/2025 outpatient COPD exacerbation treated with prednisone and antibiotics. 02/06/2025 outpatient COPD exacerbation due to running out of albuterol. Treated with prednisone and doxycycline. 03/01/2025 a patient COPD exacerbation precipitated by exposure to the hot air. Treated with prednisone. 04/03/2025 through 04/04/2025 admitted to the hospital with COPD exacerbation treated with steroids and antibiotics and discharged on 5 days of prednisone. Patient tells me she completed her doxycycline and prednisone and was doing better until 04/07/2025 when she developed fever, chills, body aches, sinus congestion, cough with phlegm, shortness of breath with no hemoptysis. Patient is prescribed no oxygen at rest, no oxygen with activity and 2 with sleep but has been using 2 L with rest and activity as she has been sick recently. Patient continues to smoke half a pack a cigarettes a day. She denies vaping or illicit drug use. Her symptoms progressed and she presented to the emergency department on 04/10/25. blood pressure is 111/70, heart rate 135, respirations 22, saturations on 2 L nasal cannula 97%. White blood cell count 10.7 with eosinophils 0.2%. Creatinine 1.08. ABG on 2 L nasal cannula 7.45/41/94. Patient was treated with bronchodilators, Tamiflu 75, prednisone 60 and admitted to the floor. 04/10/2025: Patient tells me she feels a little bit better currently. She is currently on 2 L nasal cannula saturations 94%. She has and expiratory wheezes bilaterally. DATA: 04/10/2025: Examination: XR chest 1V portable Clinical History:sob/COPD Comparison:04/03/2025 Technique:Portable AP Findings: Heart size normal. Mild bibasilar predominant interstitial changes thought to be overlying soft tissue artifact. Otherwise lungs clear. No acute bony abnormality. IMPRESSION: 1. No definite acute cardiopulmonary findings given portable technique. Can consider PA and lateral films with deep inspiration. 11/29/2024: Home O2 assessment: Rest room air saturation 96%. Exercise room air saturation 93%. Patient ambulated 137 m and her heart rate 91-131. Patient requires no supplemental oxygen with rest or with activity. 11/28/24: Lexiscan stress test IMPRESSION: 1. Normal myocardial perfusion at rest and during stress. 2. Left ventricular ejection fraction measuring >70%. 11/26/24: CTA chest PE protocol History: 64 years Female with . shortness of breath . Comparison: None. Findings: PULMONARY ARTERIES: No pulmonary embolus. VISUALIZED THORACIC INLET: Normal. MEDIASTINUM: Aorta/coronary arteries: Mild atheromatous disease. Heart/other: The heart is not enlarged. Lymph nodes: No mediastinal or hilar adenopathy. LUNGS: Possible nodule or focal atelectasis seen anteriorly in the right upper lobe which measures 1.1 x 1.2 x 1.4 cm. No pulmonary masses. No infiltrates or effusions. No pneumothorax. VISUALIZED UPPER ABDOMEN: Right renal cyst. lobated kidneys is noted. Otherwise, the visualized upper abdomen is normal. MUSCULOSKELETAL: Soft tissues: The superficial soft tissues are normal. Bones: Fracture is seen in T6. Age appropriate degenerative changes of the spine. IMPRESSION: 1. No pulmonary embolism. 2. No acute cardiopulmonary pathology. 3. Focal area of atelectasis versus pneumonia versus nodule seen anteriorly in the right upper lobe measuring 1.1 x 1.2x1.4 cm. 4. Compression fracture in the T6 vertebra. 11/23/24: Echo Summary 1. Technically difficult study with poorly visualized views. 2. Overall preserved biventricular systolic function. Left Ventricle The left ventricle is normal in size and systolic function. The left ventricular ejection fraction is visually estimated to be 60-65%. Right Ventricle The right ventricle is normal in size and systolic function. Left Atria The left atrium is normal size. Right Atria The right atrium is normal size. no RVSP Calculated 11/10/24; CT diagnostic chest wo con Ordering provider: Parish Ragsdale MD History: 64 years Female with . COPD . Comparison: None. VISUALIZED THORACIC INLET: Normal. Retropharyngeal carotid arteries. MEDIASTINUM: Aorta/coronary arteries: Mild atheromatous disease. Heart/other: The heart is not enlarged. Lymph nodes: No mediastinal or hilar adenopathy. LUNGS: Underlying emphysematous changes. No pulmonary nodules or masses. No infiltrates or effusions. No pneumothorax. Atelectasis versus focal pneumonia is seen in the right upper lobe. VISUALIZED UPPER ABDOMEN: Right kidney small cyst measuring 1.8 cm. Status post cholecystectomy. Otherwise, the visualized upper abdomen is normal. MUSCULOSKELETAL: Soft tissues: The superficial soft tissues are normal. Bones: Age appropriate degenerative changes of the spine. Burst fracture is seen in T6 which may be acute or chronic. MRI evaluation advised. IMPRESSION: 1. Focal area of atelectasis versus pneumonia in the right upper lobe anteriorly. Otherwise, No evidence of pneumonia or pneumothorax. 2. Underlying emphysematous changes. 3. Burst fracture of T6. MRI is advised. Review of Systems Constitutional: Constitutional: Reports no additional constitutional complaints Eyes: Eyes: Reports no additional eye complaints ENT: Reports system reviewed and no additional complaints, except as documented Cardiovascular: Cardiovascular: Reports no additional cardiovascular complaints Respiratory: Respiratory: Reports no additional respiratory complaints Gastrointestinal: Gastrointestinal: Reports no additional gastrointestinal complaints Musculoskeletal: Musculoskeletal: Reports no additional musculoskeletal complaints Neurologic: Reports system reviewed and no additional complaints, except as documented Psychiatric: Psychiatric: Reports no additional psychiatric complaints Endocrine: Endocrine: Reports no additional endocrine complaints Hematologic/Lymphatic: Hematologic/Lymphatic: Reports no additional hematologic/lymphatic complaints Allergic/Immunologic: Allergic/Immunologic: Reports no additional allergic/immunologic complaints [facility] Past Medical History Medical History Anxiety Asthma Coronary artery disease (10/2023) Nuclear stress test showed a large, severe non reversible infarcts including multiple meyers of the apex and mid anterior and mid posterior segments consistent with infarct with no reversible ischemia. Tobacco abuse Chronic obstructive pulmonary disease Surgical History Surgical History History of cholecystectomy History of section Family History Family History Mother Cerebrovascular accident Sibling FH: CABG (coronary artery bypass surgery) Father Stented coronary artery Social History Social History Social History: Surrogate medical decision maker: Meghan Babcock, daughter. Code status: Full code. Smoking packs per day: 0.5 Smoking cigarettes per day: 10.0 Years smoked: 45 Smoking pack-years: 22.50 Smoking status: Current every day smoker Tobacco type: cigarettes Second hand tobacco smoke exposure: No Alcohol intake: never Drinks per week: 28 Substance use: former Substance use type: marijuana Other substance usage details: tried one time and quit Last use: 10/11/24 Do You Feel Safe in your Home?: Yes Lack of Transportation: No Lack of Food: Never True Current Housing: I Have Housing Concerned About Future Housing: No Difficulty Paying Gas/Electric Bills: No Difficulty Paying for Meds: No Currently Unemployed: No Education: High School Diploma/GED Difficulty w/ Childcare or Family Care: No Living arrangements: with family Spiritual care concerns: No Meds Home Medications and Allergies Home Medications ?Medication ?Instructions ?Recorded ?Confirmed ?Type umeclidinium 62.5 mcg/actuation 1 inh inhalation DAILY 10/26/23 04/10/25 History blister powder for inhalation (Incruse Ellipta) aspirin 81 mg chewable tablet 81 mg PO DAILY@0800 #30 tabs 11/24/24 04/10/25 Rx (Children's Aspirin) nicotine 21 mg/24 hr daily 1 patch transdermal DAILY #14 ea 11/24/24 04/10/25 Rx transdermal patch (Nicoderm CQ) rosuvastatin 20 mg tablet 20 mg PO EVENING #30 tabs 11/24/24 04/10/25 Rx buspirone 10 mg tablet 10 mg PO Q8H #90 tabs 11/29/24 04/10/25 Rx diltiazem HCl 180 mg 180 mg PO DAILY #30 caps 11/29/24 04/10/25 Rx capsule,extended release 24 hr (Cartia XT) levalbuterol HCl 1.25 mg/3 mL 1.25 mg (3 mL) inhalation Q4H PRN 11/29/24 04/10/25 Rx solution for nebulization shortness of breath or wheezing #72 mL fluticasone propionate 115 2 puff inhalation Q12H 12/06/24 04/10/25 History mcg-salmeterol 21 mcg/actuation HFA inhaler albuterol sulfate 2.5 mg/3 mL 2.5 mg continuous nebulization Q8H 04/03/25 04/10/25 History (0.083 %) solution for nebulization PRN shortness of breath unrelieved by inhaler albuterol sulfate 90 mcg/actuation 1 inh inhalation QID PRN shortness 04/03/25 04/10/25 History aerosol inhaler of breath or wheezing Allergies Allergy/AdvReac Type Severity Reaction Status Date / Time codeine AdvReac Itching Verified 03/01/25 04:38 Vital Signs Vital Signs - 24 hr 04/10/25 08:45 04/10/25 09:06 04/10/25 09:42 Temperature 37.1 C Pulse Rate 135 H 122 H Respiratory Rate 22 H 28 H Blood Pressure 111/70 Pulse Oximetry 97 97 Oxygen Delivery Nasal Cannula Nasal Cannula Oxygen Flow Rate 2 2 04/10/25 09:48 04/10/25 09:51 04/10/25 09:53 Temperature Pulse Rate 117 H 116 H 119 H Respiratory Rate 28 H 18 22 H Blood Pressure Pulse Oximetry 100 96 Oxygen Delivery Oxygen Flow Rate 04/10/25 10:07 04/10/25 10:24 04/10/25 10:38 Temperature Pulse Rate 125 H 105 H 118 H Respiratory Rate 31 H 24 H 25 H Blood Pressure 113/87 Pulse Oximetry 97 100 98 Oxygen Delivery Oxygen Flow Rate 04/10/25 10:45 04/10/25 10:47 04/10/25 11:00 Temperature Pulse Rate 116 H 128 H 114 H Respiratory Rate 26 H 29 H 25 H Blood Pressure 115/58 L Pulse Oximetry 100 88 L 95 Oxygen Delivery Oxygen Flow Rate 04/10/25 11:24 04/10/25 11:30 04/10/25 11:32 Temperature Pulse Rate 128 H 129 H 138 H Respiratory Rate 28 H 26 H 26 H Blood Pressure Pulse Oximetry 98 95 96 Oxygen Delivery Oxygen Flow Rate 04/10/25 11:44 Temperature Pulse Rate 147 H Respiratory Rate 28 H Blood Pressure 133/77 Pulse Oximetry 94 Oxygen Delivery Oxygen Flow Rate Exam Const: General: cooperative, comfortable and no acute distress Orientation/consciousness: oriented to person, oriented to place and oriented to time HENMT: Head: normal to inspection Ears: hearing grossly normal bilaterally Eyes: General: appearance normal, both eyes and all related structures Neck: Neck: normal visual inspection Chest: Chest palpation & inspection: normal inspection of the chest Resp: Effort & Inspection: normal respiratory effort and able to speak in complete sentences Auscultation: no crackles, no rales, no rhonchi, no wheezes and lung sounds not diminished Other: End expiratory wheezes bilaterally. Cardio: Jugular venous distension: no JVD Other: Sinus tachy with PACs on the monitor GI: Inspection: normal to inspection GI Palp: No abdominal tenderness Skin: General skin exam: normal color Neuro: General: oriented to person, oriented to place and oriented to time Extrem: General: normal to inspection Psych: Appearance: grossly normal Results Laboratory Findings 04/10/25 09:03 04/10/25 09:03 ABG, PT/INR, D-dimer: ABG ABG pH 7.449 (7.350-7.450) 04/10/25 09:34 ABG pCO2 40.8 mmHg (35.0-45.0) 04/10/25 09:34 ABG pO2 93.7 mmHg (80.0-100.0) 04/10/25 09:34 ABG O2 Saturation 97.4 % (95.0-100.0) 04/10/25 09:34 Abnormal lab findings: Abnormal Labs 04/10/25 04/10/25 04/10/25 09:03 09: 09:34 WBC 10.7 H MCHC 31.4 L MPV 10.7 H Immature Gran % (Auto) 1.5 H Neut % (Auto) 75.3 H Lymph % (Auto) 13.1 L Bucks % (Auto) 9.7 H Bucks # (Auto) 1.0 H Abs Immat Gran (auto) 0.16 H Absolute Neuts (auto) 8.0 H ABG HCO3 27.7 H Sodium 135 L Creatinine 1.08 H Estimated GFR 51 L Influenza A (RT-PCR) Positive A Diagnostic Findings Additional studies: ITS Impressions Chest X-Ray 04/10/25 09:22
[2025-04-10] MEDS: NICOTINE (*PBKC) 21 MG PATCH 1 PATCH TRANSDERM (13:32)
[2025-04-10 13:49] LABS: CRP 1.0 mg/dL (<1.0)
[2025-04-10 13:54] LABS: NT Pro B Type Natriuretic Pept 459 pg/mL (19.9-100)
[2025-04-10 14:01] LABS: Procalcitonin 0.1 ng/mL
[2025-04-10] MEDS: ACETAMINOPHEN 500 MG TABLET PO (16:07)
[2025-04-10] MEDS: ROSUVASTATIN 10 MG TABLET 20 MG PO (18:24)
[2025-04-10] MEDS: FLUTICASONE/SALMETEROL 115-21 MCG INHALER 1 PUFF 2 PUFF INHALATION (21:45)
[2025-04-11] VITALS (27 sets, daily range): BP systolic 88–134; BP diastolic 48–85; PULSE 62–124; RESP 12–26; TEMP 36.4–36.9; O2SAT 93–99
[2025-04-11] MEDS: IPRATROPIUM BR 0.02% INH SOLN 0.5 MG/2.5 ML VIAL INHALATION ×6 (00:30→21:27)
[2025-04-11 04:35] LABS: Hematocrit 41.9 % (37.0-47.0); Hemoglobin 12.9 g/dL (12.0-15.0); Immature Granulocyte Percent A 1.1 % (0-0.5); Lymphocytes Absolute Auto 0.69 K/mm3 (0.9-3.2); Mean Corpuscular HGB Conc 30.8 g/dl (32-36); Mean Corpuscular Hemoglobin 29.8 pg (26-34); Mean Corpuscular Volume 96.8 fl (80-100); Nucleated Red Blood Cells Absolute Auto 0.000 K/mm3 (0.0-0.012); Nucleated Red Blood Cells Perc 0.0 % (0.0-0.2); Platelet Count Result 185 k/mm3 (150-375); Red Blood Count 4.33 M/mm3 (4.2-5.4); White Blood Count 4.5 K/mm3 (4.5-10.0)
[2025-04-11 05:01] LABS: Procalcitonin 0.1 ng/mL
[2025-04-11 05:03] LABS: Anion Gap 6 mmol/L (4-12); Blood Urea Nitrogen 18 mg/dL (7-17); CRP 2.5 mg/dL (<1.0); Calcium 8.5 mg/dL (8.4-10.2); Carbon Dioxide 29 mmol/L (22-30); Chloride 102 mmol/L (98-107); Estimated CRCL calculation 52 ml/min; Estimated Glomerular Filt Rate 55; Glucose 99 mg/dL (65-110); Potassium 4.1 mmol/L (3.4-5.0); Sodium 137 mmol/L (137-145)
--- NOTE | 2025-04-11 09:48 | PM.PNPUL ---
Progress Note: A&P Assessment and Plan (1) Influenza A: Code(s): J10.1 - Influenza due to other identified influenza virus with other respiratory manifestations Status: Acute Assessment and Plan: Patient presents with 3 days history of fever, chills, body aches, sinus congestion, cough with phlegm, shortness of breath with no hemoptysis, white blood cell count 10.7, eosinophils 0.2%, creatinine 1.08, chest x-ray without focal infiltrates. ABG on 2 L 7.45/41/94. No evidence of hypercarbic respiratory failure Patient has influenza A Plan: Continue Tamiflu 75 mg p.o. b.i.d., 1st dose given 04/10 at 11:00 a.m.. Would continue at least 5 days and reassess and if she is still symptomatic or develops severe disease would continue for total of 10 days. I have discontinued systemic steroids as patients with influenza have worse outcome with systemic steroids. I will check a procalcitonin. Currently there is no evidence of concurrent bacterial infection. Blood cultures are pending. 04/11/2025: Patient tells me she feels much better. States she has 60% back to her normal. Her cough is the same, phlegm is the same and says she has difficulty expectorating. She denies hemoptysis. She feels she is no longer wheezing. She had a fever last on 04/10/2025 at 4:00 p.m. says she has not felt a fever overnight. When I enter the room she is on 2 L nasal cannula with saturations 98%. I decreased her to 1 L nasal cannula saturations were 92%. She is afebrile. White blood cell count 4.5, creatinine 1.02, BNP was 459. Procalcitonin is unchanged from 0.1 on 04/10/2025 to 0.1 today. COPD has increased from 1.0 on 04/10/2025 to a value of 2.5 today. she is positive 900 mL yesterday and cumulative she is positive 700 mL since admission. Her weight today is 85.3. Plan: patient has improved. She is on day 2 of Tamiflu. I have adjusted the dose for a creatinine clearance less than 60 to 30 mg p.o. q.12 hours. Patient should receive a minimum of 5 days of Tamiflu at if she still has any symptoms given her severe lung disease would continue for a total of 10 days. Patient states she follows with her PCP Dr. Valdez at [facility] and prefers to see a paperboard box maker at [facility]. Discussed with Dr. Aguirre, will sign off, call with questions. (2) Chronic obstructive pulmonary disease: Qualifiers: COPD type: COPD with acute exacerbation Qualified Code(s): J44.1 - Chronic obstructive pulmonary disease with (acute) exacerbation Code(s): J44.9 - Chronic obstructive pulmonary disease, unspecified Status: Acute Assessment and Plan: GOLD group E COPD Patient tells me she smoked 1 PPD from age 16 to recently and currently is smoking 0.5 pack for total 48 pack years. She is exposed to no secondhand smoke. She has no occupational exposures. I have no PFTs. CT scan of the chest on 11/10/2024 and 11/26/2024 with moderate to severe apical predominant centrilobular emphysema. On a good day she can walk 0.5 block. One year ago she could walk 3 blocks. She was prescribed home oxygen approximately 1 year ago but only uses it sporadically at night at 2 L NC. Maintained on Incruse Ellipta 62.5 for many years. 01/08/2025: Outpatient COPD exacerbation. 01/27/2025 Outpatient COPD exacerbation treated with prednisone and antibiotics. 02/06/2025 Outpatient COPD exacerbation due to running out of albuterol. Treated with prednisone and doxycycline. 03/01/2025 Outpatient COPD exacerbation precipitated by exposure to the hot air. Treated with prednisone. 04/03/2025 through 04/04/2025 admitted to the hospital with COPD exacerbation treated with steroids and antibiotics and discharged on 5 days of prednisone. 04/10/25: Currently admitted with influenza a. She has expiratory wheezes. She has a history of atrial tachycardias which are provoked by beta agonist. Her heart rate right now is 135. Plan: I will discontinue all beta agonists and monitor her clinically on ipratropium 0.5 mg nebulized q.4 hours. Steroids are contraindicated with acute influenza. 04/11/2025: Patient has no wheezing and says that her breathing is improving. She is on ipratropium q.4 hours. Difficulty expectorating phlegm. Plan: Will hold systemic and inhaled corticosteroids while she has acute influenza. Continue ipratropium nebulizers for now and when she has improved will transition to Incruse Ellipta 62.5 at 1 puff q.day. Will add guaifenesin 1200 mg p.o. b.i.d. and a Cornet flutter valve for difficulty expectorating. When she is recovered would cautiously add beta agonists with levalbuterol as tolerated by her atrial tachycardias. The night prior to her discharge she should have an overnight oximetry on 2 L and the day of discharge she should have a home O2 assessment. (3) Tobacco abuse: Code(s): Z72.0 - Tobacco use Status: Chronic Assessment and Plan: 04/10/25: She has had multiple hospitalizations and outpatient exacerbations and continues to smoke Half a pack a day. I have told her the cigarettes are killing her and she must quit. plan: Nicotine patch. CT angiogram on 11/10/2024 and 11/26/2024 with atelectasis versus nodule in the right upper lobe. Plan: I will repeat a CT of the chest without contrast. Later in the day patient refused CT scan of the chest 04/11/2025: Patient has refused CT scan of the chest. Smoking cessation counseling was provided. I told her the cigarettes or actively killing her and that she has had multiple exacerbations once a month and that she needs to make a decision regarding tobacco cessation verses continuing to smoke which will accelerate her . She understands this and became tearful. She denied pharmacologic assistance at this time and said that she does has to quit on her own. Subjective Date/time seen: 04/11/25 09:48 Interval history: 04/10/2025: This is a new pulmonary consult for COPD and influenza a. 64-year-old with a history of asthma and COPD, tobacco use, atrial tachycardia and anxiety. Patient tells me she smoked 1 PPD from age 16 to recently and currently is smoking 0.5 pack for total 48 pack years. She is exposed to no secondhand smoke. She has no occupational exposures. On a good day she can walk 0.5 block. One year ago she could walk 3 blocks. She was prescribed home oxygen approximately 1 year ago but only uses it sporadically at night at 2 L NC. Maintained on Advair 115-21 at 2 puffs b.i.d. and Incruse Ellipta 62.5 for many years. I had previously seen the patient during inpatient hospitalization. 11/25/2024 through 11/29/2024:? Patient admitted to [facility] with fast heart rate, palpitations and mild tachypnea.? Given that her tachycardia was her most predominant symptom and I did not feel she was having a COPD exacerbation, I stopped all beta agonist and placed her on ipratropium nebulizers and budesonide nebulizers.? CTA of the chest showed no PE with right upper lobe nodule versus scarring with no change compared to 11/10/2024.? Overnight oximetry and telemetry demonstrated an SVT consistent with an atrial tachycardia and the patient?s metoprolol was changed to diltiazem per cardiology.? Stress test was negative.? Overnight oximetry on 3 L demonstrated adequate saturations.? Home O2 assessment demonstrated she required no oxygen at rest or with activity.? She was discharged on Incruse Ellipta 62.5 q.day, rescue levalbuterol inhaler and nebulizer, buspare 10 TID, and Cardizem CD 180 q.day. Patient was to follow-up in 4 weeks and was a no-show to the [facility] on 12/21/2024. 01/08/2025: Outpatient COPD exacerbation. 01/27/2025 outpatient COPD exacerbation treated with prednisone and antibiotics. 02/06/2025 outpatient COPD exacerbation due to running out of albuterol. Treated with prednisone and doxycycline. 03/01/2025 a patient COPD exacerbation precipitated by exposure to the hot air. Treated with prednisone. 04/03/2025 through 04/04/2025 admitted to the hospital with COPD exacerbation treated with steroids and antibiotics and discharged on 5 days of prednisone. Patient tells me she completed her doxycycline and prednisone and was doing better until 04/07/2025 when she developed fever, chills, body aches, sinus congestion, cough with phlegm, shortness of breath with no hemoptysis. Patient is prescribed no oxygen at rest, no oxygen with activity and 2 with sleep but has been using 2 L with rest and activity as she has been sick recently. Patient continues to smoke half a pack a cigarettes a day. She denies vaping or illicit drug use. Her symptoms progressed and she presented to the emergency department on 04/10/25. blood pressure is 111/70, heart rate 135, respirations 22, saturations on 2 L nasal cannula 97%. White blood cell count 10.7 with eosinophils 0.2%. Creatinine 1.08. ABG on 2 L nasal cannula 7.45/41/94. Patient was treated with bronchodilators, Tamiflu 75, prednisone 60 and admitted to the floor. 04/10/2025: Patient tells me she feels a little bit better currently. She is currently on 2 L nasal cannula saturations 94%. She has and expiratory wheezes bilaterally. Later in the day patient refused CT scan of the chest 04/11/2025: Patient tells me she feels much better. States she has 60% back to her normal. Her cough is the same, phlegm is the same and says she has difficulty expectorating. She denies hemoptysis. She feels she is no longer wheezing. She had a fever last on 04/10/2025 at 4:00 p.m. says she has not felt a fever overnight. When I enter the room she is on 2 L nasal cannula with saturations 98%. I decreased her to 1 L nasal cannula saturations were 92%. She is afebrile. White blood cell count 4.5, creatinine 1.02, BNP was 459. Procalcitonin is unchanged from 0.1 on 04/10/2025 to 0.1 today. COPD has increased from 1.0 on 04/10/2025 to a value of 2.5 today. she is positive 900 mL yesterday and cumulative she is positive 700 mL since admission. Her weight today is 85.3. DATA: 04/10/2025: Examination: XR chest 1V portable Clinical History:sob/COPD Comparison:04/03/2025 Technique:Portable AP Findings: Heart size normal. Mild bibasilar predominant interstitial changes thought to be overlying soft tissue artifact. Otherwise lungs clear. No acute bony abnormality. IMPRESSION: 1. No definite acute cardiopulmonary findings given portable technique. Can consider PA and lateral films with deep inspiration. 11/29/2024: Home O2 assessment: Rest room air saturation 96%. Exercise room air saturation 93%. Patient ambulated 137 m and her heart rate 91-131. Patient requires no supplemental oxygen with rest or with activity. 11/28/24: Lexiscan stress test IMPRESSION: 1. Normal myocardial perfusion at rest and during stress. 2. Left ventricular ejection fraction measuring >70%. 11/26/24: CTA chest PE protocol History: 64 years Female with . shortness of breath . Comparison: None. Findings: PULMONARY ARTERIES: No pulmonary embolus. VISUALIZED THORACIC INLET: Normal. MEDIASTINUM: Aorta/coronary arteries: Mild atheromatous disease. Heart/other: The heart is not enlarged. Lymph nodes: No mediastinal or hilar adenopathy. LUNGS: Possible nodule or focal atelectasis seen anteriorly in the right upper lobe which measures 1.1 x 1.2 x 1.4 cm. No pulmonary masses. No infiltrates or effusions. No pneumothorax. VISUALIZED UPPER ABDOMEN: Right renal cyst. lobated kidneys is noted. Otherwise, the visualized upper abdomen is normal. MUSCULOSKELETAL: Soft tissues: The superficial soft tissues are normal. Bones: Fracture is seen in T6. Age appropriate degenerative changes of the spine. IMPRESSION: 1. No pulmonary embolism. 2. No acute cardiopulmonary pathology. 3. Focal area of atelectasis versus pneumonia versus nodule seen anteriorly in the right upper lobe measuring 1.1 x 1.2x1.4 cm. 4. Compression fracture in the T6 vertebra. 11/23/24: Echo Summary 1. Technically difficult study with poorly visualized views. 2. Overall preserved biventricular systolic function. Left Ventricle The left ventricle is normal in size and systolic function. The left ventricular ejection fraction is visually estimated to be 60-65%. Right Ventricle The right ventricle is normal in size and systolic function. Left Atria The left atrium is normal size. Right Atria The right atrium is normal size. no RVSP Calculated 11/10/24; CT diagnostic chest wo con Ordering provider: Parish Ragsdale MD History: 64 years Female with . COPD . Comparison: None. VISUALIZED THORACIC INLET: Normal. Retropharyngeal carotid arteries. MEDIASTINUM: Aorta/coronary arteries: Mild atheromatous disease. Heart/other: The heart is not enlarged. Lymph nodes: No mediastinal or hilar adenopathy. LUNGS: Underlying emphysematous changes. No pulmonary nodules or masses. No infiltrates or effusions. No pneumothorax. Atelectasis versus focal pneumonia is seen in the right upper lobe. VISUALIZED UPPER ABDOMEN: Right kidney small cyst measuring 1.8 cm. Status post cholecystectomy. Otherwise, the visualized upper abdomen is normal. MUSCULOSKELETAL: Soft tissues: The superficial soft tissues are normal. Bones: Age appropriate degenerative changes of the spine. Burst fracture is seen in T6 which may be acute or chronic. MRI evaluation advised. IMPRESSION: 1. Focal area of atelectasis versus pneumonia in the right upper lobe anteriorly. Otherwise, No evidence of pneumonia or pneumothorax. 2. Underlying emphysematous changes. 3. Burst fracture of T6. MRI is advised. Review of Systems Constitutional: Constitutional: Reports no additional constitutional complaints Eyes: Eyes: Reports no additional eye complaints ENT: Reports system reviewed and no additional complaints, except as documented Cardiovascular: Cardiovascular: Reports no additional cardiovascular complaints Respiratory: Respiratory: Reports no additional respiratory complaints Gastrointestinal: Gastrointestinal: Reports no additional gastrointestinal complaints Musculoskeletal: Musculoskeletal: Reports no additional musculoskeletal complaints Neurologic: Reports system reviewed and no additional complaints, except as documented Psychiatric: Psychiatric: Reports no additional psychiatric complaints Endocrine: Endocrine: Reports no additional endocrine complaints Hematologic/Lymphatic: Hematologic/Lymphatic: Reports no additional hematologic/lymphatic complaints Allergic/Immunologic: Allergic/Immunologic: Reports no additional allergic/immunologic complaints Exam Const: General: cooperative, comfortable and no acute distress Orientation/consciousness: oriented to person, oriented to place and oriented to time HENMT: Head: normal to inspection Ears: hearing grossly normal bilaterally Eyes: General: appearance normal, both eyes and all related structures Neck: Neck: normal visual inspection Chest: Chest palpation & inspection: normal inspection of the chest Resp: Effort & Inspection: normal respiratory effort and able to speak in complete sentences Auscultation: no crackles, no rales, no rhonchi, no wheezes and lung sounds not diminished Other: no wheezes today Cardio: Jugular venous distension: no JVD Other: Sinus tachy with PACs on the monitor GI: Inspection: normal to inspection Skin: General skin exam: normal color Neuro: General: oriented to person, oriented to place and oriented to time Extrem: General: normal to inspection Psych: Appearance: grossly normal Objective Data Vital Signs Vital Signs: Vital Signs - 24 hr 04/10/25 09:51 04/10/25 09:53 04/10/25 10:07 Temperature Pulse Rate 116 H 119 H 125 H Respiratory Rate 18 22 H 31 H Blood Pressure Pulse Oximetry 100 96 97 Oxygen Delivery Oxygen Flow Rate Fraction of Inspired Oxygen 04/10/25 10:24 04/10/25 10:38 04/10/25 10:45 Temperature Pulse Rate 105 H 118 H 116 H Respiratory Rate 24 H 25 H 26 H Blood Pressure 113/87 Pulse Oximetry 100 98 100 Oxygen Delivery Oxygen Flow Rate Fraction of Inspired Oxygen 04/10/25 10:47 04/10/25 11:00 04/10/25 11:24 Temperature Pulse Rate 128 H 114 H 128 H Respiratory Rate 29 H 25 H 28 H Blood Pressure 115/58 L Pulse Oximetry 88 L 95 98 Oxygen Delivery Oxygen Flow Rate Fraction of Inspired Oxygen 04/10/25 11:30 04/10/25 11:32 04/10/25 11:44 Temperature Pulse Rate 129 H 138 H 147 H Respiratory Rate 26 H 26 H 28 H Blood Pressure 133/77 Pulse Oximetry 95 96 94 Oxygen Delivery Oxygen Flow Rate Fraction of Inspired Oxygen 04/10/25 12:10 04/10/25 14:00 04/10/25 16:00 Temperature 38.0 C H 38.6 C H Pulse Rate 119 H 110 H 106 H Respiratory Rate 28 H 28 H Blood Pressure 111/69 96/52 L Pulse Oximetry 96 94 Oxygen Delivery Oxygen Flow Rate Fraction of Inspired Oxygen 04/10/25 16:07 04/10/25 16:30 04/10/25 16:30 Temperature 38.4 C H Pulse Rate 103 H Respiratory Rate 24 H Blood Pressure Pulse Oximetry 95 Oxygen Delivery Nasal Cannula Oxygen Flow Rate 2 Fraction of Inspired Oxygen 04/10/25 16:55 04/10/25 17:00 04/10/25 17:10 Temperature 36.8 C Pulse Rate 96 120 H Respiratory Rate 21 H 21 H Blood Pressure Pulse Oximetry Oxygen Delivery Oxygen Flow Rate Fraction of Inspired Oxygen 04/10/25 17:30 04/10/25 18:00 04/10/25 20:00 Temperature 37.1 C 36.4 C Pulse Rate 78 72 Respiratory Rate 26 H Blood Pressure 90/40 L Pulse Oximetry 98 Oxygen Delivery Oxygen Flow Rate Fraction of Inspired Oxygen 04/10/25 20:00 04/10/25 20:45 04/10/25 21:30 Temperature Pulse Rate 98 49 L 70 Respiratory Rate 20 16 Blood Pressure Pulse Oximetry 98 83 L Oxygen Delivery Nasal Cannula Nasal Cannula Oxygen Flow Rate 2 4 Fraction of Inspired Oxygen 04/10/25 21:45 04/10/25 21:50 04/10/25 21:54 Temperature Pulse Rate 72 72 100 Respiratory Rate 20 20 20 Blood Pressure Pulse Oximetry 90 Oxygen Delivery Nasal Cannula Oxygen Flow Rate 4 Fraction of Inspired Oxygen 36 04/10/25 22:00 04/10/25 23:29 04/10/25 23:35 Temperature 36.4 C Pulse Rate 62 66 54 L Respiratory Rate 26 H 15 Blood Pressure 111/67 Pulse Oximetry 95 95 Oxygen Delivery Nasal Cannula Oxygen Flow Rate 4 Fraction of Inspired Oxygen 04/11/25 00:00 04/11/25 00:31 04/11/25 00:40 Temperature Pulse Rate 73 73 70 Respiratory Rate 20 20 Blood Pressure Pulse Oximetry Oxygen Delivery Oxygen Flow Rate Fraction of Inspired Oxygen 04/11/25 02:00 04/11/25 03:45 04/11/25 03:54 Temperature Pulse Rate 62 62 70 Respiratory Rate 20 20 Blood Pressure Pulse Oximetry 95 Oxygen Delivery Nasal Cannula Oxygen Flow Rate 4 Fraction of Inspired Oxygen 04/11/25 04:00 04/11/25 04:00 04/11/25 04:03 Temperature 36.4 C Pulse Rate 68 81 71 Respiratory Rate 26 H 20 Blood Pressure 106/58 L Pulse Oximetry 96 Oxygen Delivery Oxygen Flow Rate Fraction of Inspired Oxygen 04/11/25 06:00 04/11/25 08:00 04/11/25 08:15 Temperature 36.8 C Pulse Rate 70 107 H 67 Respiratory Rate 16 20 Blood Pressure 111/60 Pulse Oximetry 98 94 Oxygen Delivery Nasal Cannula Oxygen Flow Rate 2 Fraction of Inspired Oxygen 04/11/25 08:15 04/11/25 08:25 Temperature Pulse Rate 67 94 Respiratory Rate 20 20 Blood Pressure Pulse Oximetry Oxygen Delivery Oxygen Flow Rate Fraction of Inspired Oxygen Intake/Output Intake/Output: Intake & Output 09/27/25 04/09/25 04/10/25 04/11/25 23:59 23:59 23:59 23:59 Intake Total 1600 Output Total 700 200 Balance 900 -200 Meds/Results Medications: Active Medications Generic Name Dose Route Start Last Admin Trade Name Freq PRN Reason Stop Dose Admin Acetaminophen 500 mg 04/10/25 15:59 04/10/25 16:07 Acetaminophen 500 Mg Tablet PO 500 mg Q4H PRN Administration Mild Pain (1-3) or Fever Aspirin 81 mg 04/11/25 08:00 Aspirin 81 Mg Chewable Tablet PO DAILY@0800 [facility] Buspirone HCl 10 mg 04/10/25 22:00 04/11/25 05:28 Buspirone Hcl 10 Mg Tablet PO 10 mg Q8H EMILY Administration Diltiazem HCl 180 mg 04/11/25 09:00 Diltiazem Hcl Cd 180 Mg Cap.24hr PO QAM EMILY Heparin Sodium (Porcine) 5,000 units 04/10/25 14:00 04/11/25 05:28 Heparin Sodium 5,000 Units/Ml Vial SUB-Q 5,000 units Q8HR EMILY Administration Ipratropium [place] 0.5 mg 04/10/25 16:00 04/11/25 08:12 Ipratropium Br 0.02% Inh Soln 0.5 Mg/2.5 Ml Vial INHALATION 0.5 mg Q4HRT EMILY Administration Lorazepam 0.5 mg 04/10/25 11:57 04/10/25 12:02 Lorazepam (*Crx) 0.5 Mg Tablet PO 0.5 mg ONCE PRN Administration Anxiety Nicotine 1 patch 04/10/25 12:10 04/10/25 13:32 Nicotine (*Pbkc) 21 Mg Patch TRANSDERM 1 patch DAILY [facility] Administration Ondansetron HCl 4 mg 04/10/25 12:19 Ondansetron Inj 4 Mg/2 Ml Vial IV PUSH Q4H PRN Nausea And Vomiting Oseltamivir Phosphate 30 mg 04/11/25 09:00 Oseltamivir Phosphate 30 Mg Capsule PO 04/16/25 08:59 Q12HR [facility] Rosuvastatin Calcium 20 mg 04/10/25 18:00 04/10/25 18:24 Rosuvastatin 10 Mg Tablet PO 20 mg EVENING EMILY Administration Radiology Results: ITS Impressions Chest X-Ray 04/10/25 09:22 IMPRESSION: 1. No definite acute cardiopulmonary findings given portable technique. Can consider PA and lateral films with deep inspiration. Labs Labs: Laboratory Results - last 24 hr 04/10/25 04/10/25 04/11/25 09:25 13:15 04:06 WBC 4.5 RBC 4.33 Hgb 12.9 Hct 41.9 MCV 96.8 MCH 29.8 MCHC 30.8 L RDW 13.6 Plt Count 185 MPV 10.6 H Immature Gran % (Auto) 1.1 H Neut % (Auto) 73.8 H Lymph % (Auto) 15.5 L Rains % (Auto) 9.6 H Eos % (Auto) 0.0 Baso % (Auto) 0.0 L Lymph # (Auto) 0.69 L Rains # (Auto) 0.4 Eos # (Auto) 0.0 Baso # (Auto) 0.0 Abs Immat Gran (auto) 0.05 H Absolute Neuts (auto) 3.3 Absolute Nucleated RBC 0.000 Nucleated RBC % 0.0 Sodium 137 Potassium 4.1 Chloride 102 Carbon Dioxide 29 Anion Gap 6 BUN 18 H Creatinine 1.02 H Estim Creat Clear Calc 52 Estimated GFR 55 L Glucose 99 Calcium 8.5 C-Reactive Protein 1.0 2.5 H NT-Pro-B Natriuret Pep 459 H Procalcitonin 0.1 0.1 Influenza A (RT-PCR) Positive A Influenza B (RT-PCR) Negative SARS-CoV-2 RNA (RT-PCR) Negative
[2025-04-11] MEDS: OSELTAMIVIR PHOSPHATE 30 MG CAPSULE PO ×2 (09:49→21:47)
[2025-04-11] MEDS: NICOTINE (*PBKC) 21 MG PATCH 1 PATCH TRANSDERM (09:49)
[2025-04-11] MEDS: ASPIRIN 81 MG CHEWABLE TABLET PO (09:50)
[2025-04-11] MEDS: dilTIAZem HCL CD 180 MG CAP.24HR PO (09:50)
[2025-04-11] MEDS: guaiFENesin 12 HR 600 MG TABCR 1200 MG PO ×2 (11:52→21:47)
--- NOTE | 2025-04-11 17:35 | PM.IMPN ---
Progress Note: A&P Assessment and Plan (1) Anxiety: Code(s): F41.9 - Anxiety disorder, unspecified Status: Acute (2) Influenza A: Code(s): J10.1 - Influenza due to other identified influenza virus with other respiratory manifestations Status: Acute (3) Acute exacerbation of chronic obstructive pulmonary disease: Code(s): J44.1 - Chronic obstructive pulmonary disease with (acute) exacerbation Status: Acute (4) Acute hypoxic on chronic hypercapnic respiratory failure: Code(s): J96.01 - Acute respiratory failure with hypoxia; J96.12 - Chronic respiratory failure with hypercapnia Status: Acute (5) Tobacco abuse: Code(s): Z72.0 - Tobacco use Status: Chronic Plan 64-year-old female with past medical history of chronic respiratory failure, COPD, ongoing smoking presenting with worsening shortness of breaths. Tested positive for influenza A. 1. Acute on chronic respiratory failure: Secondary to influenza a infection Admitted to telemetry medicine Isolation precautions on Tamiflu Monitor O2 saturations and hemodynamics Resume bronchodilators Pulmonary consult Add nicotine patch for ongoing smoking, smoking cessation counseling Solu-Medrol Q 8 p.r.n. No need for antibiotic at the moment Mild leukocytosis, will monitor 2. History of anxiety: Will resume home dose buspirone but med reconciliation is done 3. DVT prophylaxis: Heparin subQ 4. Code status: Full 5. Disposition: possibel discharge tomorrow Subjective Date/time seen: 04/11/25 17:35 Interval history: Comfortable at bedside Review of Systems Review of Systems: All systems reviewed & are unremarkable except as noted in HPI and below Exam Narrative: Looks anxious, Const: Other: Looks anxious, feeling short of breath HENMT: Mouth: Yes moist mucous membranes Eyes: Sclera: sclerae normal Neck: Neck: supple Resp: Other: Bilateral decreased breath sounds, no wheezing heard Cardio: Rate: tachycardic Rhythm: regular rhythm GI: Auscultation: normal bowel sounds Skin: General skin exam: normal color Neuro: Speech: normal speech Extrem: General: normal to inspection Other: No edema Psych: Mental Status: mental status grossly normal Objective Data Vital Signs Vital Signs: Vital Signs - 24 hr 04/10/25 18:00 04/10/25 20:00 04/10/25 20:00 Temperature 97.6 F Pulse Rate 78 72 98 Respiratory Rate 26 H Blood Pressure 90/40 L Pulse Oximetry 98 Oxygen Delivery Oxygen Flow Rate Fraction of Inspired Oxygen 04/10/25 20:45 04/10/25 21:30 04/10/25 21:45 Temperature Pulse Rate 49 L 70 72 Respiratory Rate 20 16 20 Blood Pressure Pulse Oximetry 98 83 L Oxygen Delivery Nasal Cannula Nasal Cannula Oxygen Flow Rate 2 4 Fraction of Inspired Oxygen 04/10/25 21:50 04/10/25 21:54 04/10/25 22:00 Temperature Pulse Rate 72 100 62 Respiratory Rate 20 20 Blood Pressure Pulse Oximetry 90 Oxygen Delivery Nasal Cannula Oxygen Flow Rate 4 Fraction of Inspired Oxygen 36 04/10/25 23:29 04/10/25 23:35 04/11/25 00:00 Temperature 97.6 F Pulse Rate 66 54 L 73 Respiratory Rate 26 H 15 Blood Pressure 111/67 Pulse Oximetry 95 95 Oxygen Delivery Nasal Cannula Oxygen Flow Rate 4 Fraction of Inspired Oxygen 04/11/25 00:31 04/11/25 00:40 04/11/25 02:00 Temperature Pulse Rate 73 70 62 Respiratory Rate 20 20 Blood Pressure Pulse Oximetry Oxygen Delivery Oxygen Flow Rate Fraction of Inspired Oxygen 04/11/25 03:45 04/11/25 03:54 04/11/25 04:00 Temperature 97.6 F Pulse Rate 62 70 68 Respiratory Rate 20 20 26 H Blood Pressure 106/58 L Pulse Oximetry 95 96 Oxygen Delivery Nasal Cannula Oxygen Flow Rate 4 Fraction of Inspired Oxygen 04/11/25 04:00 04/11/25 04:03 04/11/25 06:00 Temperature Pulse Rate 81 71 70 Respiratory Rate 20 Blood Pressure Pulse Oximetry Oxygen Delivery Oxygen Flow Rate Fraction of Inspired Oxygen 04/11/25 08:00 04/11/25 08:00 04/11/25 08:00 Temperature 98.3 F Pulse Rate 107 H 74 74 Respiratory Rate 16 Blood Pressure 111/60 Pulse Oximetry 98 95 Oxygen Delivery Nasal Cannula Oxygen Flow Rate 2 Fraction of Inspired Oxygen 04/11/25 08:15 04/11/25 08:15 04/11/25 08:25 Temperature Pulse Rate 67 67 94 Respiratory Rate 20 20 20 Blood Pressure Pulse Oximetry 94 Oxygen Delivery Nasal Cannula Oxygen Flow Rate 2 Fraction of Inspired Oxygen 04/11/25 10:00 04/11/25 12:00 04/11/25 12:00 Temperature Pulse Rate 78 96 96 Respiratory Rate Blood Pressure Pulse Oximetry 96 Oxygen Delivery Nasal Cannula Oxygen Flow Rate 2 Fraction of Inspired Oxygen 04/11/25 12:00 04/11/25 12:20 04/11/25 12:20 Temperature 97.9 F Pulse Rate 82 120 H 120 H Respiratory Rate 12 20 20 Blood Pressure 120/65 Pulse Oximetry 97 95 Oxygen Delivery Nasal Cannula Oxygen Flow Rate 2 Fraction of Inspired Oxygen 04/11/25 12:28 04/11/25 16:00 04/11/25 16:40 Temperature 98.1 F Pulse Rate 96 89 Respiratory Rate 20 20 Blood Pressure 91/48 L 88/58 L Pulse Oximetry 93 Oxygen Delivery Oxygen Flow Rate Fraction of Inspired Oxygen 04/11/25 16:57 04/11/25 16:57 04/11/25 17:04 Temperature Pulse Rate 122 H 122 H 124 H Respiratory Rate 20 20 20 Blood Pressure Pulse Oximetry 93 Oxygen Delivery Nasal Cannula Oxygen Flow Rate 2 Fraction of Inspired Oxygen Intake/Output Intake/Output: Intake & Output 04/08/25 04/09/25 04/10/25 04/11/25 23:59 23:59 23:59 23:59 Intake Total 1600 720 Output Total 700 200 Balance 900 520 Meds/Results Medications: Active Medications Generic Name Dose Route Start Last Admin Trade Name Freq PRN Reason Stop Dose Admin Acetaminophen 500 mg 04/10/25 15:59 04/10/25 16:07 Acetaminophen 500 Mg Tablet PO 500 mg Q4H PRN Administration Mild Pain (1-3) or Fever Aspirin 81 mg 04/11/25 08:00 04/11/25 09:50 Aspirin 81 Mg Chewable Tablet PO 81 mg DAILY@0800 [facility] Administration Buspirone HCl 10 mg 04/10/25 22:00 04/11/25 15:02 Buspirone Hcl 10 Mg Tablet PO 10 mg Q8H EMILY Administration Diltiazem HCl 180 mg 04/11/25 09:00 04/11/25 09:50 Diltiazem Hcl Cd 180 Mg Cap.24hr PO 180 mg QAM EMILY Administration Guaifenesin 1,200 mg 04/11/25 10:05 04/11/25 11:52 Guaifenesin 12 Hr 600 Mg Tabcr PO 1,200 mg Q12HR EMILY Administration Heparin Sodium (Porcine) 5,000 units 04/10/25 14:00 04/11/25 15:02 Heparin Sodium 5,000 Units/Ml Vial SUB-Q 5,000 units Q8HR EMILY Administration Ipratropium [place] 0.5 mg 04/10/25 16:00 04/11/25 16:56 Ipratropium Br 0.02% Inh Soln 0.5 Mg/2.5 Ml Vial INHALATION 0.5 mg Q4HRT EMILY Administration Nicotine 1 patch 04/10/25 12:10 04/11/25 09:49 Nicotine (*Pbkc) 21 Mg Patch TRANSDERM 1 patch DAILY EMILY Administration Ondansetron HCl 4 mg 04/10/25 12:19 Ondansetron Inj 4 Mg/2 Ml Vial IV PUSH Q4H PRN Nausea And Vomiting Oseltamivir Phosphate 30 mg 04/11/25 09:00 04/11/25 09:49 Oseltamivir Phosphate 30 Mg Capsule PO 04/16/25 08:59 30 mg Q12HR EMILY Administration Rosuvastatin Calcium 20 mg 04/10/25 18:00 04/10/25 18:24 Rosuvastatin 10 Mg Tablet PO 20 mg EVENING EMILY Administration Radiology Results: ITS Impressions Chest X-Ray 04/10/25 09:22 IMPRESSION: 1. No definite acute cardiopulmonary findings given portable technique. Can consider PA and lateral films with deep inspiration. Labs Labs: Laboratory Results - last 24 hr 04/11/25 04:06 WBC 4.5 RBC 4.33 Hgb 12.9 Hct 41.9 MCV 96.8 MCH 29.8 MCHC 30.8 L RDW 13.6 Plt Count 185 MPV 10.6 H Immature Gran % (Auto) 1.1 H Neut % (Auto) 73.8 H Lymph % (Auto) 15.5 L [place] % (Auto) 9.6 H Eos % (Auto) 0.0 Baso % (Auto) 0.0 L Lymph # (Auto) 0.69 L [place] # (Auto) 0.4 Eos # (Auto) 0.0 Baso # (Auto) 0.0 Abs Immat Gran (auto) 0.05 H Absolute Neuts (auto) 3.3 Absolute Nucleated RBC 0.000 Nucleated RBC % 0.0 Sodium 137 Potassium 4.1 Chloride 102 Carbon Dioxide 29 Anion Gap 6 BUN 18 H Creatinine 1.02 H Estim Creat Clear Calc 52 Estimated GFR 55 L Glucose 99 Calcium 8.5 C-Reactive Protein 2.5 H Procalcitonin 0.1 Quality VTE Prophylaxis VTE prophylaxis: pharmacologic ordered
[2025-04-11] MEDS: ROSUVASTATIN 10 MG TABLET 20 MG PO (17:46)
[2025-04-12] VITALS (24 sets, daily range): BP systolic 96–126; BP diastolic 52–81; PULSE 10–132; RESP 16–24; TEMP 36.1–36.9; O2SAT 93–99
[2025-04-12] MEDS: IPRATROPIUM BR 0.02% INH SOLN 0.5 MG/2.5 ML VIAL INHALATION ×5 (01:00→20:38)
[2025-04-12 06:48] LABS: Hematocrit 42.0 % (37.0-47.0); Hemoglobin 12.9 g/dL (12.0-15.0); Immature Granulocyte Percent A 0.7 % (0-0.5); Lymphocytes Absolute Auto 2.18 K/mm3 (0.9-3.2); Mean Corpuscular HGB Conc 30.7 g/dl (32-36); Mean Corpuscular Hemoglobin 29.7 pg (26-34); Mean Corpuscular Volume 96.6 fl (80-100); Nucleated Red Blood Cells Absolute Auto 0.000 K/mm3 (0.0-0.012); Nucleated Red Blood Cells Perc 0.0 % (0.0-0.2); Platelet Count Result 163 k/mm3 (150-375); Red Blood Count 4.35 M/mm3 (4.2-5.4); White Blood Count 5.6 K/mm3 (4.5-10.0)
[2025-04-12 07:13] LABS: Alanine Aminotransferase 30 U/L (6-35); Albumin Level 3.5 g/dL (3.5-5.1); Alkaline Phosphatase 47 U/L (38-126); Anion Gap 3 mmol/L (4-12); Aspartate Amino Transferase 38 U/L (14-36); Bilirubin,Total 0.2 mg/dL (0.2-1.3); Blood Urea Nitrogen 21 mg/dL (7-17); Calcium 8.5 mg/dL (8.4-10.2); Carbon Dioxide 32 mmol/L (22-30); Chloride 100 mmol/L (98-107); Estimated CRCL calculation 50 ml/min; Estimated Glomerular Filt Rate 51; Glucose 76 mg/dL (65-110); Magnesium 2.1 mg/dL (1.6-2.3); Potassium 3.6 mmol/L (3.4-5.0); Sodium 135 mmol/L (137-145); Total Protein 5.6 g/dL (6.3-8.2)
[2025-04-12] MEDS: ASPIRIN 81 MG CHEWABLE TABLET PO (08:42)
[2025-04-12] MEDS: OSELTAMIVIR PHOSPHATE 30 MG CAPSULE PO ×2 (08:42→21:17)
[2025-04-12] MEDS: dilTIAZem HCL CD 180 MG CAP.24HR PO (08:42)
[2025-04-12] MEDS: guaiFENesin 12 HR 600 MG TABCR 1200 MG PO ×2 (08:43→21:17)
[2025-04-12] MEDS: NICOTINE (*PBKC) 21 MG PATCH 1 PATCH TRANSDERM (08:43)
--- NOTE | 2025-04-12 09:06 | ECG_ITS ---
Test Date: 2025-04-12 09:35:54 Measurements Intervals [place] Rate: 94 P: 47 [place]: 150 QRS: 66 QRSD: 64 T: 70 QT: 298 QTc: 373 Interpretive Statements SINUS RHYTHM LOW QRS VOLTAGE IN PRECORDIAL LEADS BORDERLINE T WAVE ABNORMALITY- ANT/HIGH LAT LEADS BORDERLINE ECG Compared to ECG 04/10/2025 08:54:39 HEART RATE HAS DECREASED Electronically Signed On 04-12-2025 11:00:22 CDT by Amrit Toussaint D.O.
[2025-04-12] MEDS: SODIUM CHLORIDE 0.9% IV 500 ML IV CONT (09:13)
--- NOTE | 2025-04-12 10:05 | PM.IMPN ---
Progress Note: A&P Assessment and Plan (1) Anxiety: Code(s): F41.9 - Anxiety disorder, unspecified Status: Acute (2) Influenza A: Code(s): J10.1 - Influenza due to other identified influenza virus with other respiratory manifestations Status: Acute (3) Acute exacerbation of chronic obstructive pulmonary disease: Code(s): J44.1 - Chronic obstructive pulmonary disease with (acute) exacerbation Status: Acute (4) Acute hypoxic on chronic hypercapnic respiratory failure: Code(s): J96.01 - Acute respiratory failure with hypoxia; J96.12 - Chronic respiratory failure with hypercapnia Status: Acute (5) Tobacco abuse: Code(s): Z72.0 - Tobacco use Status: Chronic Plan 64-year-old female with past medical history of chronic respiratory failure, COPD, ongoing smoking presenting with worsening shortness of breaths. Tested positive for influenza A. Acute on chronic respiratory failure: Secondary to influenza a infection Admitted to telemetry medicine Isolation precautions on Tamiflu Monitor O2 saturations and hemodynamics Resume bronchodilators Pulmonary consult Add nicotine patch for ongoing smoking, smoking cessation counseling No need for antibiotic at the moment Mild leukocytosis, will monitor Tachycardia and tachypnea ?Dehydration, Pneumonia and duoneb related Give 500 bolus NS and reevaluate tachycardia EKG, CXR, lactic acid ordered Monitor closely History of anxiety: Will resume home dose buspirone but med reconciliation is done 3. DVT prophylaxis: Heparin subQ 4. Code status: Full 5. Disposition: monitor one more day Subjective Date/time seen: 04/12/25 10:05 Interval history: Comfortable at bedside however has tachycardia and tanycpnea CXR, lactic acid and EKG ordered Review of Systems Review of Systems: All systems reviewed & are unremarkable except as noted in HPI and below Exam Narrative: Looks anxious, Const: Other: Looks anxious, feeling short of breath HENMT: Mouth: Yes moist mucous membranes Eyes: Sclera: sclerae normal Neck: Neck: supple Resp: Other: Bilateral decreased breath sounds, no wheezing heard Cardio: Rate: tachycardic Rhythm: regular rhythm GI: Auscultation: normal bowel sounds Skin: General skin exam: normal color Neuro: Speech: normal speech Extrem: General: normal to inspection Other: No edema Psych: Mental Status: mental status grossly normal Objective Data Vital Signs Vital Signs: Vital Signs - 24 hr 04/11/25 12:00 04/11/25 12:00 04/11/25 12:00 Temperature 97.9 F Pulse Rate 96 96 82 Respiratory Rate 12 Blood Pressure 120/65 Pulse Oximetry 96 97 Oxygen Delivery Nasal Cannula Oxygen Flow Rate 2 04/11/25 12:20 04/11/25 12:20 04/11/25 12:28 Temperature Pulse Rate 120 H 120 H 96 Respiratory Rate 20 20 20 Blood Pressure Pulse Oximetry 95 Oxygen Delivery Nasal Cannula Oxygen Flow Rate 2 04/11/25 16:00 04/11/25 16:00 04/11/25 16:40 Temperature 98.1 F Pulse Rate 89 117 H Respiratory Rate 20 Blood Pressure 91/48 L 88/58 L Pulse Oximetry 93 Oxygen Delivery Oxygen Flow Rate 04/11/25 16:57 04/11/25 16:57 04/11/25 17:04 Temperature Pulse Rate 122 H 122 H 124 H Respiratory Rate 20 20 20 Blood Pressure Pulse Oximetry 93 Oxygen Delivery Nasal Cannula Oxygen Flow Rate 2 04/11/25 18:48 04/11/25 20:00 04/11/25 21:27 Temperature 97.7 F Pulse Rate 117 H 123 H 119 H Respiratory Rate 20 Blood Pressure 128/69 Pulse Oximetry 97 Oxygen Delivery Oxygen Flow Rate 04/11/25 21:33 04/11/25 21:40 04/11/25 21:47 Temperature Pulse Rate 121 H 117 H 93 Respiratory Rate 20 20 20 Blood Pressure Pulse Oximetry 93 99 Oxygen Delivery Nasal Cannula Nasal Cannula Oxygen Flow Rate 2 4 04/11/25 22:27 04/12/25 00:00 04/12/25 01:00 Temperature 98.4 F Pulse Rate 93 102 H 122 H Respiratory Rate 20 20 Blood Pressure 134/85 Pulse Oximetry 99 Oxygen Delivery Oxygen Flow Rate 04/12/25 01:10 04/12/25 02:23 04/12/25 04:00 Temperature 97.8 F Pulse Rate 118 H 114 H 100 Respiratory Rate 20 18 Blood Pressure 126/81 Pulse Oximetry 98 Oxygen Delivery Oxygen Flow Rate 04/12/25 06:00 04/12/25 08:36 04/12/25 08:36 Temperature 97.0 F L Pulse Rate 93 110 H Respiratory Rate 18 20 Blood Pressure 103/67 Pulse Oximetry 97 95 Oxygen Delivery Nasal Cannula Oxygen Flow Rate 2 04/12/25 08:45 Temperature Pulse Rate 110 H Respiratory Rate 24 H Blood Pressure Pulse Oximetry Oxygen Delivery Oxygen Flow Rate Intake/Output Intake/Output: Intake & Output 04/09/25 04/10/25 04/11/25 04/12/25 23:59 23:59 23:59 23:59 Intake Total 1600 960 600 Output Total 700 200 Balance 900 760 600 Meds/Results Medications: Active Medications Generic Name Dose Route Start Last Admin Trade Name Freq PRN Reason Stop Dose Admin Acetaminophen 500 mg 04/10/25 15:59 04/10/25 16:07 Acetaminophen 500 Mg Tablet PO 500 mg Q4H PRN Administration Mild Pain (1-3) or Fever Aspirin 81 mg 04/11/25 08:00 04/12/25 08:42 Aspirin 81 Mg Chewable Tablet PO 81 mg DAILY@0800 EMILY Administration Buspirone HCl 10 mg 04/10/25 22:00 04/12/25 05:24 Buspirone Hcl 10 Mg Tablet PO 10 mg Q8H EMILY Administration Diltiazem HCl 180 mg 04/11/25 09:00 04/12/25 08:42 Diltiazem Hcl Cd 180 Mg Cap.24hr PO 180 mg QAM EMILY Administration Guaifenesin 1,200 mg 04/11/25 10:05 04/12/25 08:43 Guaifenesin 12 Hr 600 Mg Tabcr PO 1,200 mg Q12HR EMILY Administration Heparin Sodium (Porcine) 5,000 units 04/10/25 14:00 04/12/25 05:24 Heparin Sodium 5,000 Units/Ml Vial SUB-Q 5,000 units Q8HR EMILY Administration Ipratropium [place] 0.5 mg 04/10/25 16:00 04/12/25 08:34 Ipratropium Br 0.02% Inh Soln 0.5 Mg/2.5 Ml Vial INHALATION 0.5 mg Q4HRT EMILY Administration Nicotine 1 patch 04/10/25 12:10 04/12/25 08:43 Nicotine (*Pbkc) 21 Mg Patch TRANSDERM 1 patch DAILY EMILY Administration Ondansetron HCl 4 mg 04/10/25 12:19 Ondansetron Inj 4 Mg/2 Ml Vial IV PUSH Q4H PRN Nausea And Vomiting Oseltamivir Phosphate 30 mg 04/11/25 09:00 04/12/25 08:42 Oseltamivir Phosphate 30 Mg Capsule PO 04/16/25 08:59 30 mg Q12HR EMILY Administration Rosuvastatin Calcium 20 mg 04/10/25 18:00 04/11/25 17:46 Rosuvastatin 10 Mg Tablet PO 20 mg EVENING EMILY Administration Radiology Results: ITS Impressions Chest X-Ray 04/10/25 09:22 IMPRESSION: 1. No definite acute cardiopulmonary findings given portable technique. Can consider PA and lateral films with deep inspiration. Labs Labs: Laboratory Results - last 24 hr 04/11/25 04/12/25 04:06 05:42 WBC 5.6 RBC 4.35 Hgb 12.9 Hct 42.0 MCV 96.6 MCH 29.7 MCHC 30.7 L RDW 13.4 Plt Count 163 MPV 11.2 H Immature Gran % (Auto) 0.7 H Neut % (Auto) 46.0 Lymph % (Auto) 39.0 [place] % (Auto) 11.4 H Eos % (Auto) 2.5 Baso % (Auto) 0.4 Lymph # (Auto) 2.18 [place] # (Auto) 0.6 Eos # (Auto) 0.1 Baso # (Auto) 0.0 Abs Immat Gran (auto) 0.04 H Absolute Neuts (auto) 2.6 Absolute Nucleated RBC 0.000 Nucleated RBC % 0.0 Sodium 135 L Potassium 3.6 Chloride 100 Carbon Dioxide 32 H Anion Gap 3 L BUN 21 H Creatinine 1.09 H Estim Creat Clear Calc 50 Estimated GFR 51 L Glucose 76 Calcium 8.5 Magnesium 2.1 Total Bilirubin 0.2 AST 38 H ALT 30 Alkaline Phosphatase 47 Total Protein 5.6 L Albumin 3.5 [id number] 154 Quality VTE Prophylaxis VTE prophylaxis: pharmacologic ordered
[2025-04-12] MEDS: FLUTICASONE/SALMETEROL 115-21 MCG INHALER 1 PUFF 2 PUFF INHALATION ×2 (11:37→20:56)
[2025-04-12] MEDS: levoFLOXacin 750 MG/D5W 150 ML 750 MG/150 ML BAG 100 MG IVPB (17:17)
[2025-04-12] MEDS: ROSUVASTATIN 10 MG TABLET 20 MG PO (17:17)
[2025-04-13] VITALS: PULSE 82
[2025-04-13] MEDS: IPRATROPIUM BR 0.02% INH SOLN 0.5 MG/2.5 ML VIAL INHALATION ×3 (00:50→07:43)
[2025-04-13 04:00] VITALS: PULSE 80
[2025-04-13 05:31] LABS: Hematocrit 37.9 % (37.0-47.0); Hemoglobin 11.9 g/dL (12.0-15.0); Immature Granulocyte Percent A 0.5 % (0-0.5); Lymphocytes Absolute Auto 2.29 K/mm3 (0.9-3.2); Mean Corpuscular HGB Conc 31.4 g/dl (32-36); Mean Corpuscular Hemoglobin 29.9 pg (26-34); Mean Corpuscular Volume 95.2 fl (80-100); Nucleated Red Blood Cells Absolute Auto 0.000 K/mm3 (0.0-0.012); Nucleated Red Blood Cells Perc 0.0 % (0.0-0.2); Platelet Count Result 162 k/mm3 (150-375); Red Blood Count 3.98 M/mm3 (4.2-5.4); White Blood Count 5.5 K/mm3 (4.5-10.0)
[2025-04-13 05:59] LABS: Alanine Aminotransferase 23 U/L (6-35); Albumin Level 3.3 g/dL (3.5-5.1); Alkaline Phosphatase 40 U/L (38-126); Anion Gap 3 mmol/L (4-12); Aspartate Amino Transferase 29 U/L (14-36); Bilirubin,Total 0.3 mg/dL (0.2-1.3); Blood Urea Nitrogen 15 mg/dL (7-17); Calcium 8.6 mg/dL (8.4-10.2); Carbon Dioxide 30 mmol/L (22-30); Chloride 102 mmol/L (98-107); Estimated CRCL calculation 44 ml/min; Estimated Glomerular Filt Rate 53; Glucose 93 mg/dL (65-110); Magnesium 2.0 mg/dL (1.6-2.3); Potassium 3.9 mmol/L (3.4-5.0); Sodium 135 mmol/L (137-145); Total Protein 5.6 g/dL (6.3-8.2)
[2025-04-13 06:00] VITALS: BP 110/55; PULSE 89; RESP 16; TEMP 35.6; O2SAT 95
[2025-04-13 07:43] VITALS: PULSE 85; RESP 17
[2025-04-13] MEDS: FLUTICASONE/SALMETEROL 115-21 MCG INHALER 1 PUFF 2 PUFF INHALATION (07:43)
[2025-04-13] MEDS: UMECLIDINIUM BROMIDE 62.5 MCG ELLIPTA 1 PUFF INHALATION (07:43)
[2025-04-13 07:53] VITALS: PULSE 90; RESP 18
[2025-04-13] MEDS: ASPIRIN 81 MG CHEWABLE TABLET PO (08:36)
[2025-04-13] MEDS: guaiFENesin 12 HR 600 MG TABCR 1200 MG PO (08:36)
[2025-04-13] MEDS: dilTIAZem HCL CD 180 MG CAP.24HR PO (08:36)
[2025-04-13] MEDS: NICOTINE (*PBKC) 21 MG PATCH 1 PATCH TRANSDERM (08:37)
[2025-04-13] MEDS: OSELTAMIVIR PHOSPHATE 30 MG CAPSULE PO (08:37)
--- NOTE | 2025-04-13 10:42 | P.DS_ITS ---
DS: Admitting Diagnosis Discharge Date 04/13/25 Admitting Diagnosis Worsening shortness of breath DS: Discharge Diagnosis Discharge Diagnosis (1) Acute exacerbation of chronic obstructive pulmonary disease: Code(s): J44.1 - Chronic obstructive pulmonary disease with (acute) exacerbation Status: Acute (2) Influenza A: Code(s): J10.1 - Influenza due to other identified influenza virus with other respiratory manifestations Status: Acute DS: Summary Hospital Course Hospital Course: HPI per admitting provider: 64-year-old female with past medical history of chronic respiratory failure, COPD on p.r.n. home O2, recently discharged from the hospital after being treated for COPD exacerbation, who continues to smoke presented with worsening shortness of breaths. She has been having body aches, chills starting Thursday. Denies any sick contacts. Continues to smoke. Presented to the ER. Chest x-ray this admission was unremarkable. Tested positive for influenza A Pulmonology was consuled and patient was treated for Flu with Tamiflu and supplemental oxygen for acute on chronic respiratory failure. However yesterday patient started having sinus tachycardia and CXR was obtained which showed Eaarly lower lobe pneumonia. She was started oN lEvaquin and todya tachycardia resolved. Thus she was discharged today on 6 more days of Levaquin. She will contineu he rhome bronchodilators for her COPD and other home meds F/u with PCP in 3-5 days F/u with pulmonology as instructed Time Spent with Patient Time attestation: Total time spent providing and/or coordinating discharge services: DS: Data Data Completed and Pending Labs on day of discharge: Labs from last 24 hours 04/13/25 04/12/25 05:25 10:20 WBC 5.5 RBC 3.98 L Hgb 11.9 L Hct 37.9 MCV 95.2 MCH 29.9 MCHC 31.4 L RDW 13.4 Plt Count 162 MPV 10.8 H Immature Gran % (Auto) 0.5 Neut % (Auto) 47.5 Lymph % (Auto) 41.6 [place] % (Auto) 8.0 Eos % (Auto) 2.0 Baso % (Auto) 0.4 Lymph # (Auto) 2.29 [place] # (Auto) 0.4 Eos # (Auto) 0.1 Baso # (Auto) 0.0 Abs Immat Gran (auto) 0.03 Absolute Neuts (auto) 2.6 Absolute Nucleated RBC 0.000 Nucleated RBC % 0.0 Sodium 135 L Potassium 3.9 Chloride 102 Carbon Dioxide 30 Anion Gap 3 L BUN 15 D Creatinine 1.04 H Estim Creat Clear Calc 44 Estimated GFR 53 L Glucose 93 Lactic Acid 0.5 L 1.0 Calcium 8.6 Magnesium 2.0 Total Bilirubin 0.3 AST 29 ALT 23 Alkaline Phosphatase 40 Total Protein 5.6 L Albumin 3.3 L Preliminary micro results at discharge 04/10/25 09:25 Blood Culture - Preliminary Blood 04/10/25 09:16 Blood Culture - Preliminary Blood Discharge Plan Discharge Attending physician on discharge: Liliane Aguirre Consulting providers: Liliane Aguirre; Parish Ragsdale Discharging Clinician: Liliane Aguirre Anticipated Discharge Date/Time: 04/13/25 10:38 Patient Disposition: Home Activity: as tolerated Diet: as tolerated and heart healthy Patient Instructions: Antibiotic Form Patient Language: [place] Stand Alone Forms: General Discharge Information Follow-up/Referrals: José Miguel,MD Parish [Primary Care Provider] Referral Note: F/u with PCP in 3-5 days Parish Ragsdale MD [Physician, Pulmonology] Referral Note: F/u with pulmonology as instructed Discharge Medications: New levofloxacin 750 mg tablet 750 mg PO .q48 8 Days Qty: 4 0RF oseltamivir [Tamiflu] 30 mg Capsule 30 mg PO Q12HR 6 Days Qty: 12 0RF Continued Incruse Ellipta 62.5 mcg/actuation blister with device 1 inh INHALATION DAILY nicotine [Nicoderm CQ] 21 mg/24 hr Patch 24 Hour 1 patch transdermal DAILY Qty: 14 0RF aspirin [Children's Aspirin] 81 mg Tablet,Chewable 81 mg PO DAILY@0800 Qty: 30 0RF rosuvastatin 20 mg Tablet 20 mg PO EVENING Qty: 30 0RF levalbuterol HCl 1.25 mg/3 mL solution for nebulization 1.25 mg inhalation Q4H PRN (Reason: shortness of breath or wheezing) Qty: 72 0RF buspirone 10 mg Tablet 10 mg PO Q8H Qty: 90 0RF diltiazem HCl [Cartia XT] 180 mg capsule,extended release 24hr 180 mg PO DAILY Qty: 30 0RF fluticasone propion-salmeterol 115-21 mcg/actuation HFA aerosol inhaler 2 puff INHALATION Q12H albuterol sulfate 2.5 mg /3 mL (0.083 %) solution for nebulization 2.5 mg continuous nebulization Q8H PRN (Reason: shortness of breath unrelieved by inhaler) albuterol sulfate 90 mcg/actuation HFA aerosol inhaler 1 inh INHALATION QID PRN (Reason: shortness of breath or wheezing) Date of admission: 04/12/25 10:32 Primary Care Provider: Emma*Parish Admitting Provider: Nida Flanagan Attending physician on admission: Nida Flanagan Condition: Stable
== END 2025-04-13 11:28 | disposition home or self-care (01) | DRG 193 ==
LOC: ANHED 09:14 → ANHIMU 11:36 → ANH3MEDSUR 04-11 18:33
PROVIDERS: Internal Medicine; Internal Medicine Pulmonary Disease; Admitting Provider General Practice; Emergency Provider General Practice; PCP Internal Medicine; Visit Provider Internal Medicine
DX: J10.08 Influenza due to other identified influenza virus with other specified pneumonia (principal); J96.01 Acute respiratory failure with hypoxia; J96.12 Chronic respiratory failure with hypercapnia; I47.10 Supraventricular tachycardia, unspecified; J44.1 Chronic obstructive pulmonary disease with (acute) exacerbation; J44.0 Chronic obstructive pulmonary disease with (acute) lower respiratory infection; J18.1 Lobar pneumonia, unspecified organism; F17.210 Nicotine dependence, cigarettes, uncomplicated; D72.829 Elevated white blood cell count, unspecified; I25.10 Atherosclerotic heart disease of native coronary artery without angina pectoris; F41.9 Anxiety disorder, unspecified; E86.0 Dehydration; J43.8 Other emphysema; R01.1 Cardiac murmur, unspecified; Z20.822 Contact with and (suspected) exposure to COVID-19; Z99.81 Dependence on supplemental oxygen; Z79.2 Long term (current) use of antibiotics; Z79.51 Long term (current) use of inhaled steroids; Z79.82 Long term (current) use of aspirin; Z90.49 Acquired absence of other specified parts of digestive tract
CPT/HCPCS: 36415; 36600; 71045; 80048; 80053; 82103; 82104; 82375; 82805; 83050; 83605; 83735; 83880; 84145; 85018; 85025; 86140; 87040; 87636; 93005; 94640; 94667; 94668; 96361; 99285; A9270; G0378; J1644; J1956; J7030; J7040; J7512

== ENCOUNTER 2025-04-17 20:29 | Inpatient (IN) | payer OTHER, SELFPAY ==
[2025-04-17] VITALS (21 sets, daily range): BP systolic 110–140; BP diastolic 68–122; PULSE 106–120; RESP 16–31; TEMP 36.4; O2SAT 89–98
--- NOTE | ~2025-04-17 | XR_ITS ---
EXAMINATION: XR chest 2V DATE: 04/17/2025 20:51 INDICATION: Shortness of breath TECHNIQUE: PA and lateral views of the chest were obtained. COMPARISON: Chest radiograph dated 04/12/[address] dated 11/26/2024 FINDINGS: Mild discoid atelectasis/scarring the right middle lobe. Prominent left paracardial fat pad. No other airspace opacities, pulmonary edema, pleural effusion or pneumothorax. Heart size is normal. Chronic T6 compression fracture with 70% anterior vertebral body height loss. IMPRESSION: 1. Mild discoid atelectasis/scarring at the right middle lobe. No other acute cardiopulmonary disease. Reviewed, dictated and finalized at location A. IMPRESSION: 1. Mild discoid atelectasis/scarring at the right middle lobe. No other acute c ardiopulmonary disease.
--- OUTSIDE RECORDS SUMMARY | 2025-04-17 20:34 | XMS_ITS | Encounter Summary ---
Author Organization [facility] Healthcare Address [address] [place] [address] Care Team Providers Care Printer Operator Name Role Phone Parish Valdez MD Primary Care Provider [phone] Encounter Details Date Type Department Care Team (Late st Contact Info) Description 11/28/2024 Orders Only [facility] [place] Health Information Management [address] [place] [id number] Cooper Mathias MD [address] [facility] [address] [facility], [address] [place] [address] Social History Tobacco Use Types Packs/Day Years [...] on filedocumented in this encounter Care Teams Printer Operator Relationship Specialty Start Date End Date Parish Valdez MD PCP - General Internal Medicine 01/01/24 documented as of this encounter
--- OUTSIDE RECORDS SUMMARY | 2025-04-17 20:34 | XMS_ITS | Clinical Summary ---
Author Organization [facility] [place] [address] Address [address] [place] [address] Care Team Providers Care Hand Printed Circuit Board Assembler Name Role Phone Parish Valdez MD Primary Care Provider [phone] Allergies Active Allergy Reactions Criticality Noted Date [...] follow-up 01/20/2025 Coronary artery disease invo lving shawnee coronary artery of shawnee heart without angina pectoris 01/20/2025 Atrial tachycardia 01/20/2025 Encounters Date Type Department Care Team Description 01/20/2025 10:30 AM CDT Office Visit [facility] Cardiology [address] [place] [address] Veronika Kim NP Hospital discharge follow-up (Primary Dx); Coronary artery disease involving shawnee coronary artery of shawnee heart without angina pectoris; Atrial tachycardia from [...] 1:56 PM CDT Coronary artery disease involving shawnee coronary artery of shawnee heart without angina pectoris from Last 3 [...] 1 :56 PM CDT us Veronika Kim PBX OPERATOR POINT OF CARE TEST ORDERABLE S Final Result from Last [address] [place] [address] Care Teams Hand Printed Circuit Board Assembler Relationship Specialty Start Date End Date Parish Valdez MD PCP - General Internal Medicine 01/01/24
--- OUTSIDE RECORDS SUMMARY | 2025-04-17 20:34 | XMS_ITS | Encounter Summary ---
Author Organization [facility] Healthcare Address [address] [place] [address] Care Team Providers Care Mask Layout Designer Name Role Phone Parish Valdez MD Primary Care Provider [phone] Encounter Details Date Type Department Care Team (Late st Contact Info) Description 12/06/2024 Orders Only [facility] [place] [address] [place] [id number] Scanning, Provider Social History Tobacco Use Types [...] on filedocumented in this encounter Care Teams Mask Layout Designer Relationship Specialty Start Date End Date Parish Valdez MD PCP - General Internal Medicine 6/21/24 documented as of this encounter
--- OUTSIDE RECORDS SUMMARY | 2025-04-17 20:35 | XMS_ITS | Data Portability ---
Author Organization [facility] [place] Address [address] [place] [address] Care Team Providers Care Cannery Worker Name Role Phone SATINDER VALDEZ Primary Care Provider [phone] Assessment Encounter Date Assessment Date Assessment LastModified [...] start it. Also get pulmonary function tests [email or web address] Not available 02/24/2024 21:43:50 04/29/2024 04/29/2024 she [...] COPD flare she would notify the office [email or web address] Not available 04/29/2024 14:50:20 2024 2024 PFTs. Refuses to get evaluation by gynecology for well-woman refuses any colon cancer screening refuses any immunizations. Blood work has been ordered follow up 3 months. Low-fat diet do not smoke stay active [email or web address] Not available 2024 16:21:48 01/25/2025 01/25/2025 Refill medications for her nebulizer continue with current therapy COPD today stable do not smoke healthy food choices no angina or anginal equivalents medicines being adjusted for tachycardia anxiety today is pretty good follow up 3 months smoking cessation is paramount quitting tobacco care instructions follow up with me in 3 months [email or web address] Not available 02/05/2025 13:31:18 02/23/2025 02/23/2025 Prednisone [...] in 2-3 months healthy lifestyle care instructions Not available 02/25/2025 11:52:05 Plan of Treatment Reminders Order Date Submit Date Provider Last Modified By Organization Details Last Modified Time Details Appointments ANY 15 2024 11:00A M Satinder Valdez MD Not available Not available Not available Lab CBC w/ auto diff 2024 025 [facility], [address] [place] [address], [address] [address], [place], [address], 10/01/2024 08:24:19 CMP, serum or plasma 2024 025 [facility], [address] [place] [address], [address] [address], [place], [address], 10/01/2024 08:24:18 lipid panel, serum 2024 025 [facility], [address] [place] [address], [facility] [address], [place], [address], 10/01/2024 08:24:17 Referral None recorded. Procedures None recorded. Surgeries None recorded. Imaging None recorded. Medication Orders prednison e 20 mg tablet 2024 025 [email or web address] [facility] [address] [place], [place], [id number], 02/23/2025 15:39:44 doxycycli ne hyclate 100 mg tablet 2024 025 [facility] #77235, [address], [place], [id number], 03/12/2025 05:02:11 buspirone 10 mg tablet [address] [facility]11166, [address], [place], [place], [id number], 01/25/2025 17:25:00 levalbute rol 1.25 mg/3 mL solution for nebulizat ion [address] [facility]10071, [address], [id number], 01/25/2025 17:25:00 prednison e 20 mg tablet 2023 024 Located within [facility] #34125, [address], [place], [place], [id number], 01/25/2025 14:07:47 atorvasta tin 40 mg tablet 2023 025 [facility] #33805, [address], [id number], 01/25/2025 14:13:25 prednison e 20 mg tablet 2023 024 Located within [facility] #97346, [address], [place], [place], [id number], 01/25/2025 14:07:47 Patient TargetsNo targets recorded. Patient Instructions Encounter Date Encounter Id Patient Instructions Last Modified By Organization Details Last Modified Time 02/24/2024 [id number] Quitting Tobacco: Care Instructions [email or web address] Not available 02/24/2024 21:44:48 sending diane to Deputy for ER note and [facility] for PFT [email or web address] Not available 02/24/2024 17:10:26 01/25/2025 [id number] Quitting Tobacco: Care Instructions [email or web address] Not available 01/25/2025 17:25:00 A healthy lifestyle: care instructions [email or web address] Not available 01/25/2025 17:25:00 02/23/2025 [id number] A healthy lifestyle: care instructions [email or web address] Not available 02/25/2025 11:52:22 Reason for Referral None Reported. Results Created Date Observation Date Name Description Value Unit Range Abnormal Flag Note LastModifiedBy Organization Detail LastModifiedTime 10/01/1910/01/2024 LIPID PANEL cholesterol, total 233 mg/dL 100-19 9 above high normal Not Available [facility] ([facility]) [address] [place], [address], 10/01/2024 08:24:17 10/01/19 25 10/01/2024 LIPID PANEL triglyceride s 200 mg/dL 0-149 above high normal Not Available [facility] ([facility]) [address] [place], [address], 10/01/2024 08:24:17 10/01/19 25 10/01/2024 LIPID PANEL HDL cholesterol 75 mg/dL >39 Not Available [facility] ([facility]) [address] [place], [address], 10/01/2024 08:24:17 10/01/19 25 10/01/2024 LIPID PANEL VLDL cholesterol mahogany 35 mg/dL 5-40 Not Available [facility] ([facility]) [address] [place], [address], 10/01/2024 08:24:17 10/01/19 25 10/01/2024 LIPID PANEL LDL chol calc ([facility]) 123 mg/dL 0-99 above high normal Not Available [facility] ([facility]) [address] [place], [address], 10/01/2024 08:24:17 10/01/19 25 10/01/2024 COMP. METAB OLIC PANEL (14) glucose 84 mg/dL 70-99 Not Available [facility] ([facility]) [address] [place], [address], 10/01/2024 08:24:18 10/01/19 25 10/01/2024 COMP. METAB OLIC PANEL (14) BUN 12 mg/dL 8-27 Not Available [facility] ([facility]) [address] [place], [address], 10/01/2024 08:24:18 10/01/19 25 10/01/2024 COMP. METAB OLIC PANEL (14) creatinine 1.03 mg/dL 0.57-1 .00 above high normal Not Available [facility] ([facility]) [address] [place], [address], 10/01/2024 08:24:18 10/01/19 25 10/01/2024 COMP. METAB OLIC PANEL (14) eGFR 61 mL/mi n/1.7 3 >59 Not Available [facility] ([facility]) [address] [place], [address], 10/01/2024 08:24:18 10/01/19 25 10/01/2024 COMP. METAB OLIC PANEL (14) BUN/creatini ne ratio 12 12-28 Not Available [facility] ([facility]) [address] [place], [address], 10/01/2024 08:24:18 10/01/19 25 10/01/2024 COMP. METAB OLIC PANEL (14) sodium 141 mmol/ L 134-14 4 Not Available [facility] ([facility]) [address] [place], [address], 10/01/2024 08:24:18 10/01/19 25 10/01/2024 COMP. METAB OLIC PANEL (14) potassium 4.7 mmol/ L 3.5-5. 2 Not Available [facility] ([facility]) [address] [place], [address], 10/01/2024 08:24:18 10/01/19 25 10/01/2024 COMP. METAB OLIC PANEL (14) chloride 101 mmol/ L 96-106 Not Available [facility] ([facility]) [address] [place], [address], 10/01/2024 08:24:18 10/01/19 25 10/01/2024 COMP. METAB OLIC PANEL (14) carbon dioxide, total 22 mmol/ L 20-29 Not Available [facility] ([facility]) [address] [place], [address], 10/01/2024 08:24:18 10/01/19 25 10/01/2024 COMP. METAB OLIC PANEL (14) calcium 9.6 mg/dL 8.7-10 .3 Not Available [facility] ([facility]) [address] [place], [address], 10/01/2024 08:24:18 10/01/19 25 10/01/2024 COMP. METAB OLIC PANEL (14) protein, total 6.4 g/dL 6.0-8. 5 Not Available [facility] ([facility]) [address] [place], [address], 10/01/2024 08:24:18 10/01/19 25 10/01/2024 COMP. METAB OLIC PANEL (14) albumin 4.3 g/dL 3.9-4. 9 Not Available [facility] ([facility]) [address] [place], [address], 10/01/2024 08:24:18 10/01/19 25 10/01/2024 COMP. METAB OLIC PANEL (14) globulin, total 2.1 g/dL 1.5-4. 5 Not Available [facility] ([facility]) [address] [place], [address], 10/01/2024 08:24:18 10/01/19 25 10/01/2024 COMP. METAB OLIC PANEL (14) bilirubin, total 0.4 mg/dL 0.0-1. 2 Not Available [facility] ([facility]) [address] [facility] [place], [address], 10/01/2024 08:24:18 10/01/19 25 10/01/2024 COMP. METAB OLIC PANEL (14) alkaline phosphatase 90 IU/L 44-121 Not Available [facility] ([facility]) [address] [place], [address], 10/01/2024 08:24:18 10/01/19 25 10/01/2024 COMP. METAB OLIC PANEL (14) AST (SGOT) 17 IU/L 0-40 Not Available [facility] ([facility]) [address] [place], [address], 10/01/2024 08:24:18 10/01/19 25 10/01/2024 COMP. METAB OLIC PANEL (14) ALT (SGPT) 20 IU/L 0-32 Not Available [facility] ([facility]) [address] [place], [address], 10/01/2024 08:24:18 10/01/19 25 10/01/2024 CBC WITH DIFFE RENTI AL/PL ATELE T WBC 9.3 x10e3 /uL 3.4-10 .8 Not Available [facility] ([facility]) [address] [place], [address], 10/01/2024 08:24:19 10/01/19 25 10/01/2024 CBC WITH DIFFE RENTI AL/PL ATELE T RBC 5.33 x10e6 /uL 3.77-5 .28 above high normal Not Available [facility] ([facility]) [address] [place], [address], 10/01/2024 08:24:19 10/01/19 25 10/01/2024 CBC WITH DIFFE RENTI AL/PL ATELE T hemoglobin 17.6 g/dL 11.1-1 5.9 above high normal Not Available [facility] ([facility]) [address] [facility], [place], [address], 10/01/2024 08:24:19 10/01/19 25 10/01/2024 CBC WITH DIFFE RENTI AL/PL ATELE T hematocrit 53.6 % 34.0-4 6.6 above high normal Not Available [facility] ([facility]) [address] [facility], [place], [address], 10/01/2024 08:24:19 10/01/19 25 10/01/2024 CBC WITH DIFFE RENTI AL/PL ATELE T MCV 101 fL 79-97 above high normal Not Available [facility] ([facility]) [address] [place], [address], 10/01/2024 08:24:19 10/01/19 25 10/01/2024 CBC WITH DIFFE RENTI AL/PL ATELE T MCH 33.0 pg 26.6-3 3.0 Not Available [facility] ([facility]) [address] [place], [address], 10/01/2024 08:24:19 10/01/19 25 10/01/2024 CBC WITH DIFFE RENTI AL/PL ATELE T MCHC 32.8 g/dL 31.5-3 5.7 Not Available [facility] ([facility]) [address] [place], [address], 10/01/2024 08:24:19 10/01/19 25 10/01/2024 CBC WITH DIFFE RENTI AL/PL ATELE T RDW 13.8 % 11.7-1 5.4 Not Available [facility] ([facility]) [address] [facility], [place], [address], 10/01/2024 08:24:19 10/01/19 25 10/01/2024 CBC WITH DIFFE RENTI AL/PL ATELE T platelets 263 x10e3 /uL 150-45 0 Not Available [facility] ([facility]) [address] [facility], [place], [address], 10/01/2024 08:24:19 10/01/19 25 10/01/2024 CBC WITH DIFFE RENTI AL/PL ATELE T neutrophils 59 % notest ab. Not Available [facility] ([facility]) [address] [facility], [place], [address], 10/01/2024 08:24:19 10/01/19 25 10/01/2024 CBC WITH DIFFE RENTI AL/PL ATELE T lymphs 29 % notest ab. Not Available [facility] ([facility]) [address] [facility], [place], [address], 10/01/2024 08:24:19 10/01/19 25 10/01/2024 CBC WITH DIFFE RENTI AL/PL ATELE T monocytes 8 % notest ab. Not Available [facility] ([facility]) [address] [facility], [place], [address], 10/01/2024 08:24:19 10/01/19 25 10/01/2024 CBC WITH DIFFE RENTI AL/PL ATELE T eos 2 % notest ab. Not Available [facility] ([facility]) [address] [facility], [place], [address], 10/01/2024 08:24:19 10/01/19 25 10/01/2024 CBC WITH DIFFE RENTI AL/PL ATELE T basos 1 % notest ab. Not Available [facility] ([facility]) [address] [facility], [place], [address], 10/01/2024 08:24:19 03/21/20 25 10/01/2024 CBC WITH DIFFE RENTI AL/PL ATELE T neutrophils (absolute) 5.6 x10e3 /uL 1.4-7. 0 Not Available [facility] ([facility]) [address] [place], [address], 10/01/2024 08:24:19 10/01/19 25 10/01/2024 CBC WITH DIFFE RENTI AL/PL ATELE T lymphs (absolute) 2.7 x10e3 /uL 0.7-3. 1 Not Available [facility] ([facility]) [address] [place], [address], 10/01/2024 08:24:19 10/01/19 25 10/01/2024 CBC WITH DIFFE RENTI AL/PL ATELE T monocytes(ab solute) 0.7 x10e3 /uL 0.1-0. 9 Not Available [facility] ([facility]) [address] [place], [address], 10/01/2024 08:24:19 10/01/19 25 10/01/2024 CBC WITH DIFFE RENTI AL/PL ATELE T eos (absolute) 0.2 x10e3 /uL 0.0-0. 4 Not Available [facility] ([facility]) [address] [place], [address], 10/01/2024 08:24:19 10/01/19 25 10/01/2024 CBC WITH DIFFE RENTI AL/PL ATELE T baso (absolute) 0.1 x10e3 /uL 0.0-0. 2 Not Available [facility] ([facility]) [address] [place], [address], 10/01/2024 08:24:19 10/01/19 25 10/01/2024 CBC WITH DIFFE RENTI AL/PL ATELE T immature granulocytes 1 % notest ab. Not Available [facility] ([facility]) [address] [place], [address], 10/01/2024 08:24:19 10/01/19 25 10/01/2024 CBC WITH DIFFE RENTI AL/PL ATELE T immature granlilo (abs) 0.1 x10e3 /uL 0.0-0. 1 Not Available [facility] ([facility]) [address] [facility], [place], [address], 10/01/2024 08:24:19 02/25/20 24 03/09/2019 PFT, compl ete No observ ation record ed. [address] [place], [address], 02/27/2024 21:30:57 11/11/19 25 11/10/2024 XR, chest No observ ation record ed. [address], [address], 11/11/2024 09:12:50 11/11/19 25 11/10/2024 CT, chest , w/o contr ast No observ ation record ed. [address] [address], [place], [address], 11/22/2024 22:38:13 11/18/19 25 11/17/2024 XR, chest No observ ation record ed. [address] [address], [place], [address], 11/18/2024 10:16:53 11/24/19 25 11/23/2024 XR, chest , 2 view No observ ation record ed. [address], [address], 11/25/2024 14:59:46 11/25/19 25 11/23/2024 stres s echoc ardio gram with doppl er color flow (PROC ) No observ ation record ed. [address], [address], 11/25/2024 15:02:11 11/27/19 25 11/25/2024 XR, chest No observ ation record ed. [address], [place], [address], 11/29/2024 22:36:06 11/27/19 25 11/26/2024 CT, angio gram, chest , w/ contr ast No observ ation record ed. [address], [place], [address], 11/29/2024 22:36:06 11/29/19 25 11/28/2024 vicente can cardi olite stres s test (PROC ) No observ ation record ed. [address], [place], [address], 11/29/2024 21:46:22 11/29/19 25 11/28/2024 exerc ise stres s test No observ ation record ed. [address], [place], [address], 11/29/2024 22:36:06 11/29/19 25 11/28/2024 US, doppl er, venou s No observ ation record ed. [address], [place], [address], 11/29/2024 22:36:06 11/30/19 25 11/24/2024 bernabe r monit or No observ ation record ed. [address] [facility] [address], [place], [address], 11/29/2024 22:36:07 12/02/19 25 11/23/2024 US, [facility] ardio gram No observ ation record ed. [address], [place], [address], 12/02/2024 09:04:01 12/07/19 25 12/06/2024 XR, chest , 2 view No observ ation record ed. [address], [place], [address], 12/18/2024 22:45:30 01/09/20 25 01/08/2025 XR, chest No observ ation record ed. [address], [place], [address], 01/10/2025 12:57:14 01/28/20 25 01/27/2025 XR, chest No observ ation record ed. [address], [place], [address], 02/01/2025 12:24:59 02/07/20 25 02/06/2025 XR, chest , 2 view No observ ation record ed. [address] [facility] [place], [address], 02/07/2025 14:42:28 03/01/20 25 03/01/2025 XR, chest No observ ation record ed. [address], [place], [address], 03/02/2025 13:42:25 04/12/20 25 04/12/2025 imagi ng/di agnos tic resul t No observ ation record ed. [address], [place], [address], 04/12/2025 11:35:49 Result Notes None recorded. Problems Name Problem SNOMED Code Status Onset Date Resolution Date Notes Provider Name and Address Organization Details Recorded Time Chronic obstructi ve pulmonary disease 85659997 Active Not Available [facility] 3 17:06:31 Gastroeso phageal reflux disease 919088051 Active Not Available [facility] 3 17:06:31 Tobacco user 933908501 Active Not Available [facility] 3 17:06:31 Obesity 457930936 Active Not Available [facility] 3 17:06:31 Hyperlipi demia 43753030 Active Not Available [facility] 3 17:06:31 Depressiv e disorder 16029342 Active 2016 Not Available [facility] 3 17:06:31 Bronchiti s 08032825 Active 2016 Not Available [facility] 3 17:06:31 Low back pain 739046718 Active 2020 Not Available [facility] 3 17:06:31 At increased risk of nutrition al deficit 172519509 Active 2021 Not Available [facility] 3 17:06:31 HIV screening Active 2021 Not Available [facility] 3 17:06:31 Chronic hypoxemic respirato ry failure 199809636 Active 2023 Satinder Valdez MD Attn: Accounting ,[address] [place], [address] , [place] [facility] 4 22:10:22 HIV screening declined 70255019670 9100 Active 2023 Satinder Valdez MD Attn: Accounting ,[address] [place], [address] , [place] [facility] 4 14:50:08 Mammogram declined 867165172 Active 2023 Satinder Valdez MD Attn: Accounting ,[address] [place], [address] , [place] [facility] 4 14:50:09 [place] py declined 39713963448 9100 Active 2023 Satinder Valdez MD Attn: Accounting ,[address] [place], [address] , [place] [facility] 4 14:50:10 Influenza vaccinati on declined 130129197 Active 2023 Satinder Valdez MD Attn: Accounting ,[address] [place], [address] , [place] [facility] 4 14:50:12 SARS-CoV- 2 vaccinati on declined 5691012397 Active 2023 Satinder Valdez MD Attn: Accounting ,[address] [place], [address] , [facility] 4 14:50:13 Lung cancer screening declined 91389238694 654085 Active 2023 Satinder Valdez MD Attn: Accounting ,[address] [place], [address] , [facility] 4 14:50:14 Coronary arteriosc lerosis 65183686 Active 2024 Catheteri zation normal LV 20 30% LAD [facility] Satinder Valdez MD Attn: Accounting ,[address] [place], [address] , [facility] 5 13:29:16 Acute exacerbat ion of chronic obstructi ve pulmonary disease 646008009 Active 2024 [facility] 14:54:32 Notes:Some problems listed i n Document: #[id number] could not be added to this patient's chart. Please review this document and add these problems to the patient's chart manually as needed. Problem Notes None recorded. Procedures Surgical History Date Name Laterality Status Provider Name and Address Organization Details Recorded Time Caesarean Section completed Jacki Gipson MA [facility] 11/16/2014 14:25:00 Cholecystectomy completed Jacki Gipson MA [facility] 11/16/2014 14:25:00 Imaging Results None recorded. Procedure Notes None recorded. Medical Equipment None Reported. Allergies Allergen ID Allergen Name Allergen Category Reaction Reaction Severity Criticality Documentation Date Start Date Code Code System Note Provider Name and Address Organization Details Recorded Time 971043 codeine medicatio n itching moderate Not available 2024 2670 RxNorm ELODIA Hunt, [facility] 5 12:17:26 Medications Name Sig Start Date [...] Updated DateTime 5 158.75 cm 34.3 kg/m2 77871.7 1 g 107 /min 93 % 93 % 138/76 mm[Hg] Wendy Reaves MA [facility] 5 12:23:06 Date Recorded Body height Body mass index (BMI) Body weight Heart rate Oxygen saturation Oxygen saturation in Arterial blood by Pulse oximetry Systolic And Diastolic Provider Name and Address Organization Details Last Updated DateTime 5 158.75 cm 32.8 kg/m2 24455.2 5 g 110 /min 96 % 96 % 122/78 mm[Hg] Sylvia Baumann MA [facility] 5 14:08:31 Date Recorded Body height Body mass index (BMI) Body weight Heart rate Oxygen saturation Oxygen saturation in Arterial blood by Pulse oximetry Systolic And Diastolic Provider Name and Address Organization Details Last Updated DateTime 4 158.75 cm 31.1 kg/m2 84822.0 4 g 96 /min 98 % 98 % 120/66 mm[Hg] Judy Tafoya MA [facility] 4 16:17:17 Date Recorded Body height Body mass index (BMI) Body weight Heart rate Oxygen saturation Oxygen saturation in Arterial blood by Pulse oximetry Systolic And Diastolic Provider Name and Address Organization Details Last Updated DateTime 5 158.75 cm 33.1 kg/m2 23774.9 2 g 110 /min 93 % 93 % 128/80 mm[Hg] Anabel Rose MA [facility] 5 14:37:40 Date Recorded Body height Body mass index (BMI) Body weight Oxygen saturation Oxygen saturation in Arterial blood by Pulse oximetry Heart rate Systolic And Diastolic Provider Name and Address Organization Details Last Updated DateTime 4 158.75 cm 32.8 kg/m2 32671.8 9 g 98 % 98 % 90 /min 124/72 mm[Hg] Wendy Ritchie MA [facility] 4 12:38:08 Social History Question Answer Notes LastModified by Organizat ion Details LastModified Time Tobacco Smoking Status Current Every Day Smoker Jacki Gipson MA [facility], [facility] 11/16/2014 14:25:00 Do You Have [...] Time Tdap 11/17/2023 completed Sylvia Baumann MA [facility], [place] [facility] 2024 09:41:35 Past Encounters Encounter ID Performer Location Encounter Start Date Encounter Closed Date Diagnosis/Indication Diagnosis SNOMED-CT Code Diagnosis ICD10 Code Diagnosis IMO Codes Diagnosis Note [id number] MARILEE Howard (Adult Med) [address] [place] [id number] 11/16/2014 14:11:25 11/16/2014 17:25:43 Chronic obstructive pulmonary disease 63407892 Gastroesop hageal reflux disease 031176513 Tobacco user 739999731 Obesity 814067280 Hyperlipidemia 86650024 [id number] MARILEE Howard (Adult Med) [address] [place] [id number] 0 02/25/2016 14:30:31 02/25/2016 18:01:33 Chronic obstructive pulmonary disease 61263774 J44.9 Gastroesop hageal reflux disease 739324436 K21.9 Hyperlipidemia 91433186 E78.5 Obesity 290070880 E66.9 Tobacco user 681901663 Z 72.0 Normal grief reaction 27 8264779 F43.20 [id number] MD Terri Almonte (Adult Med) [address] [place] [id number] 11/13/2016 14:27:12 11/13/2016 17:33:33 Chronic obstructive pulmonary disease 68362552 J44.9 Gastroesop hageal reflux disease 473093129 K21.9 Obesity 724762821 E66.9 Hyperlipidemia 81971403 E78.5 Depressive disorder 9974 9007 F32.89 grief reaction , lost mom last November (2015) [id number] MD Terri [place] (Adult Med) [address] [place] [id number] 04/16/2017 15:05:45 04/20/2017 09:00:22 Chronic obstructive pulmonary disease 42804554 J44.9 Bronchitis 32137085 J40 Gastroesop hageal reflux disease 848863702 K21.9 Obesity 158756340 E66.9 Hyperlipidemia 07562508 E78.5 [id number] MD Terri [place] (Adult Med) [address] [place] [phone] 03/16/2018 16:39:42 03/17/2018 10:11:16 Bronchitis 99898875 J40 Chronic ob structive pulmonary disease 93799281 J44.9 Depressive disorder 3548 9007 F32.89 grief reaction , lost mom last November (2015) Tobacco user 039809626 Z 72.0 Gastroesop hageal reflux disease 903342259 K21.9 Obesity 987631919 E66.9 Hyperlipidemia 93907573 E78.5 [id number] MD Terri Al[place]te (Adult Med) [address] [place] [phone] 08/30/2018 16:13:03 08/31/2018 08:48:16 Bronchitis 15480340 J40 Tobacco user 109679405 Z 72.0 Chronic ob structive pulmonary disease 65405424 J44.9 Gastroesop hageal reflux disease 374807006 K21.9 Obesity 647285313 E66.9 Hyperlipidemia 59041747 E78.5 Depressive disorder 3548 9007 F32.89 grief reaction , lost mom last November (2015) [id number] MD Terri Almonte (Adult Med) [address] [place] [phone] 09/26/2019 10:47:45 09/27/2019 08:42:42 Chronic obstructive pulmonary disease 36300436 J44.9 Gastroesop hageal reflux disease 215731337 K21.9 Hyperlipidemia 70778518 E78.5 Tobacco user 267980597 Z 72.0 [id number] MD Terri [place]te (Adult Med) [address] [place] [address] 17505-528 0 07/10/2020 08:17:48 07/10/2020 16:38:50 Chronic obstructive pulmonary disease 94907298 J44.9 Gastroesop hageal reflux disease 749202223 K21.9 Hyperlipidemia 41995773 E78.5 Tobacco user 948839735 Z 72.0 Depressive disorder 3548 9006 F32.89 grief reaction , lost mom last November) [id number] MD Terri Almonte (Adult Med) [address] [place] [address] 65000-862 0 12/12/2020 10:01:54 12/12/2020 13:53:29 Chronic obstructive pulmonary disease 86906499 J44.9 Gastroesop hageal reflux disease 627896345 K21.9 Hyperlipidemia 59121293 E78.5 Tobacco user 424565602 Z 72.0 Low back pain 359863044 M54.5 [id number] MD Terri Almonte (Adult Med) [address] [place] [address] 62138-006 0 07/22/2021 14:57:13 07/22/2021 15:30:47 Chronic obstructive pulmonary disease 16420692 J44.9 Gastroesop hageal reflux disease 745134016 K21.9 Hyperlipidemia 29547678 E78.5 Tobacco user 393385652 Z 72.0 Obesity 862200140 E66.9 Renewal of prescription 293141404 Z76.0 Low back pain 709675393 M54.50 At counts include [facility] beds at the [facility] risk of nutritional deficit 351246144 Z91.89 Depressive disorder 3548 9006 F32.89 grief reaction , lost mom last November (2015) [id number] MD Terri Almonte (Adult Med) [address] [place] [address] 76620-520 0 04/01/2022 16:13:01 04/02/2022 10:16:26 Bronchitis 09124008 J40 Chronic ob structive pulmonary disease 76617276 J44.9 Depressive disorder 3548 9006 F32.89 grief reaction , lost mom last November (2015) Gastroesop hageal reflux disease 557800672 K21.9 Hyperlipidemia 12295751 E78.5 Low back pain 859762962 M54.50 Obesity 469220113 E66.9 Tobacco user 352236554 Z 72.0 At counts include 234 beds at the [facility] risk of nutritional deficit 239843721 Z91.89 HIV screening 095744416 Z11.4 [id number] MD Terri Almonte (Adult Med) [address] [place] [address] 84906-540 0 08/07/2022 16:27:29 08/08/2022 15:12:17 Obesity 337185601 E66.9 BMI is 33.5.he has been advised to watch her diet, exercise and keep the weight down. Chronic ob structive pulmonary disease 54343530 J44.9 Stable.Andrés ts to refill med. Depressive disorder 3548 9007 F32.89 Under the care of her psychiatri st. Hyperlipidemia 52491326 E78.5 Low animal fat diet. Tobacco user 477151637 Z 72.0 Advised her to quit smoking. Colon [facility] screening declined 5315135452 9109 Z53.20 She refused 08-07-2022 . Administra tion of diphtheria, pertussis, and tetanus vaccine 709222056 Z23 She refused 08-07-2022 . Influenza vaccination declined 444844137 Z28.21 She refused 08-07-2022 . Mammogram declined 82428 5004 Z53.20 She refused 08-07-2022 , Screening for malignant neoplasm of cervix 172795844 Z12.4 She refused 08-07-2022 . [id number] Rosi Begum MD [facility] (Adult Med) [address] [place] [address] 36273-166 0 02/25/2023 16:38:06 02/26/2023 14:14:06 Osteoarthritis 478639062 M19.90 She said that she has arthritis , it huts when weather changes, wants shot term steroid to easy the pain of back. . Discussed with patient, that steroid has potential side effects as well. such as pathologic fracture, hyperglyce jacinto, bleeding ulcer, poor healing of wound, adrenal insufficie ncy just new a few, She understood . Chronic ob structive pulmonary disease 03631686 J44.9 Stable.Wan ts to refill med.Advair is not on 340-B, will order dulera instead. Smoker 79396624 F17.200 Advised her to quit smoking. She declined LDCT, she smokes half pack/day for more than 40 years. She is aware of cigarettes smoking can cause permanent emphysema. cancer of lung, throat, or mouth and other diseases. Obesity 758581895 E66.9 BMI is 33.5.he has been advised to watch her diet, exercise and keep the weight down. As 02-25-23, BMI is down to 32.5. HIV screen ing declined 6491866766 47101 Z53.20 She declined 02-25-23. [id number] Rosi Begum MD [facility] (Adult Med) [address] [place] [address] 05/29/2023 14:29:10 06/02/2023 16:10:16 Chronic obstructive pulmonary disease 02327217 J44.9 Stable.Wan ts to refill med.Advair is not on 340-B, will order dulera instead. She wants advair inhaler refill, but it is not on the list. and this provider contacted medicare pharmacy no maintenanc e inhaler yael 340-B list any more. Smoker 31065413 F17.200 Advised her to quit smoking. She declined LDCT, she smokes half pack/day for more than 40 years. She is aware of cigarettes smoking can cause permanent emphysema. cancer of lung, throat, or mouth and other diseases. Hyperlipidemia 94828776 E78.5 Low animal fat diet. Obesity 972241847 E66.9 BMI is 33.5.he has been advised to watch her diet, exercise and keep the weight down. As 02-25-23, BMI is down to 32.5. As 05-29-23, BMI down to 32. Mammogram declined 66811 5004 Z53.20 She refused 08-07-2022 , She declined 05-29-23. Cervical c ancer Papanicolaou smear screening declined 5049115754 31736 Z53.20 She declined 05-29-23. Colon canc er screening declined 6616665587 9109 Z53.20 She refused 08-07-2022 . She declined 05-29-23. HIV screen ing declined 7032212337 71978 Z53.20 She declined 02-25-23. She declined 05-29-23. [id number] Satinder Valdez MD [facility] [place] [address] [place] [address] 01/07/2024 14:34:10 01/07/2024 16:25:53 Depression screening 702318302 Z13.31 Chronic ob structive pulmonary disease 81512936 J44.9 Chronic hy poxemic respiratory failure 338294026 J96.11 Hyperlipidemia 50588958 E78.5 [id number] MD Terri Turner (Adult Med) [address] [place] [address] 32946-495 0 02/24/2024 15:59:57 02/24/2024 17:12:39 Smoker 81352959 F17.200 Chronic ob structive pulmonary disease 22616009 J44.9 [id number] MD Terri Turner (Adult Med) [address] [place] [address] 09154-417 0 04/29/2024 12:05:20 04/29/2024 13:35:35 Hyperlipidemia 15920871 E78.5 Chronic ob structive pulmonary disease 06489914 J44.9 HIV screen ing declined 7707174442 33742 Z53.20 Mammogram declined 97789 5004 Z53.20 Colonoscopy declined 672 5436316 92297 Z53.20 Influenza vaccination declined 177152849 Z28.21 SARS-CoV-2 vaccination declined 8313684170 Z28.21 Lung cance r screening declined 9428057682 2266573 Z53.20 [id number] MD Terri Turner (Adult Med) [address] [place] [address] 41161-404 0 2024 11:44:40 2024 13:19:13 Body mass index 30+ - obesity 713043173 Z68.34 Hyperlipidemia 93609935 E78.5 Long-term drug therapy 780012326 Z79.899 Chronic ob structive pulmonary disease 10602928 J44.9 Gastroesop hageal reflux disease 715321958 K21.9 [id number] MD Terri Turner (Adult Med) [address] [place] [address] 16841-459 0 01/25/2025 13:52:46 01/25/2025 14:50:31 Body mass index 30+ - obesity 548867886 Z68.32 172710 Obese class I 8475242264 97831 E66.811 5318439206 Smoker 54049474 F17.200 Chronic ob structive pulmonary disease 55574592 J44.9 Repeated prescription 18 3285379 Z76.0 825441 Hyperlipidemia 86440378 E78.5 Coronary arteriosclerosis 35820938 I25.10 46500239 [id number] Satinder Valdez MD [facility] [place] [address] [place] [address] 02/23/2025 14:28:34 02/23/2025 14:55:44 Acute exacerbation of chronic obstructive pulmonary disease 633895370 J44.1 627653 Obese class I 6747244191 96735 E66.811 E66.3 9648995572 Coronary arteriosclerosis 61306418 I25.10 39124791 Hyperlipidemia 71610465 E78.5 Health Concerns Section Related Observation LastModified by Organization Detai ls LastModified Time None Recorded Concern Status LastModified by Organization Details LastModified Time None Recorded Advance Directives Directive N: Payers Insurance Date Sequence Insurance Name Policy Number Policy Ford Covered Member ID Ford Member ID Guarantor Name 01/25/2025 1 [place] WHEN MEDICARE OR MEDICARE REPLACEMENT PRIMARY) Minnie Anguiano [id number] Minnie Anguiano 01/25/2025 1 [place] - [place] - FQHC Minnie Anguiano [id number] Minnie Anguiano 04/14/2022 1 UNSPECIFIED KISHOR T PAYOR Minnie Anguiano 01/25/2025 1 [place] Minnie Anguiano [id number] Minnie Anguiano 01/25/[address] [facility] - DUAL ELIGIBLE - [place] (MEDICARE REPLACEMENT/ADVANT AGE) Minnie Anguiano [id number] Minnie Anguiano 01/25/2025 1 [facility] PRIOR TO 01/10/2021 (MEDICAID REPLACEMENT - HMO) Minnie Anguiano [id number] Minnie Anguiano 01/25/2025 1 [facility] ON OR AFTER 07/13/2020 - DUAL ELIGIBLE (MEDICARE REPLACEMENT/ADVANT AGE - HMO) [id number] Minnie Anguiano [id number] Minnie Anguiano 01/25/2025 1 [facility] PRIOR TO 01/10/2021 (MEDICAID REPLACEMENT - HMO) Minnie Anguiano [id number] Minnie Anguiano 04/14/2025 1 [facility] ON OR AFTER 07/13/2020 - DUAL ELIGIBLE (MEDICARE REPLACEMENT/ADVANT AGE - HMO) [id number] Minnie Anguiano [id number] Minnie Anguiano 04/14/[address] [facility] - DUAL ELIGIBLE - [place] (MEDICARE REPLACEMENT/ADVANT AGE) Minnie Anguiano [id number] Minnie Anguiano 01/25/2025 1 [facility] PRIOR TO 01/10/2021 (MEDICAID REPLACEMENT - HMO) Minnie Anguiano [id number] Minnie Anguiano 01/25/2025 1 [place] [facility] Minnie Anguiano [id number] Minnie Anguiano 01/25/2025 1 [place] Minnie Anguiano [id number] Minnie Anguiano 01/25/2025 2 [place] WHEN [place] OR MEDICARE REPLACEMENT PRIMARY) Minnie Anguiano [id number] Minnie Anguiano 01/25/2025 3 [place] [facility] Minnie Anguiano [id number] Minnie Anguiano 01/25/2025 2 [place] [facility] Minnie Anguiano [id number] Minnie Anguiano Notes Date Note Type Note Provider Name and Address Organization Details Recorded Time 02/24/2024 text/html ER for a COPD flare-up we do not have the records she is doing a little bit better she just quit smoking about 4 days ago she has not had any chest pain breathing has improved Satinder Valdez MD Attn: Accounting,[address], [place], [address], [facility] - [facility] 02/24/2024 21:44:51 04/29/2024 text/html COPD she has been doing pretty good with that stable. Dyslipidemia needs her atorvastatin refilled she can do better on a low-fat Satinder Valdez MD Attn: Accounting,[address], [place], [address], [place] [facility] 04/29/2024 14:50:42 2024 text/html COPD has been doing fairly well. Dyslipidemia she quit taking atorvastatin can not really tell me why rhinitis doing good on fluticasone. GERD denies any heartburn Satinder Valdez MD Attn: Accounting, [address], [place], [address], [facility] - [facility] 2024 16:22:07 01/25/2025 text/html Here for follow [...] is working with Cardiology and with her environmental change analyst best that she can not her anxiety gets pretty wound up how when she starts having her breathing difficulties. Satinder Valdez MD Attn: Accounting, [address] , [place], [address], [facility] - [facility] 02/05/2025 13:31:35 02/23/2025 text/html COPD she is in a little bit of exacerbation CAD no chest pain anxiety is high Satinder Valdez MD Attn: Accounting[address] [facility], [place], [address], [place] [facility] 02/25/2025 11:52:26 OBGyn Episode No OBEpisode recorded.
--- OUTSIDE RECORDS SUMMARY | 2025-04-17 20:35 | XMS_ITS | Clinical Summary ---
Author Organization [facility] Address [address] [address] Care Team Providers Care Director Center Name Role Phone Ethan Cerrato Primary Care Provider + Source Comments [facility],non-owned Affiliates and Associated Physician Practices is amultiple site organization consisting of ambulatory clinics and hospital sitesin [place], [place], [place] and [place]. This disclosure is being madepursuant to the Care Everywhere program and may not contain all information available regarding this patient. 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 Gender Identity Not on file Sexual Orientation Not on file Last Filed Vital Signs Vital Sign Reading Time Taken Comments Blood Pressure 122/80 07/25/2017 10:47 AM ROLL PLUGGER MACHINE OPERATOR Pulse 80 07/25/2017 10:47 AM ROLL PLUGGER MACHINE OPERATOR Temperature 36.8 C (98.2 F) 07/25/2017 10:47 AM ROLL PLUGGER MACHINE OPERATOR Respiratory Rate 20 07/25/2017 10:47 AM ROLL PLUGGER MACHINE OPERATOR Oxygen Saturation 94% 07/25/2017 10:47 AM ROLL PLUGGER MACHINE OPERATOR Inhaled Oxygen Concentration - - Weight 74.8 kg (165 lb) 07/25/2017 10:47 AM ROLL PLUGGER MACHINE OPERATOR Height 160 cm (5' 3) 07/25/2017 10:47 AM ROLL PLUGGER MACHINE OPERATOR Body Mass Index 29.23 07/25/2017 10:47 AM ROLL PLUGGER MACHINE OPERATOR Plan of Treatment Health Maintenance Due Date [...] patient's age to complete this topic Insurance [facility] Care Teams Director Center Relationship Specialty Start Date End Date Ethan Cerrato PA [address] [place] [address] PCP - General Physician Waiter/Waitress Take Out 07/25/17
--- NOTE | 2025-04-17 20:37 | ECG_ITS ---
Test Date: 2025-04-17 21:45:30 Measurements Intervals [place] Rate: 111 P: 46 WI: 158 QRS: 67 QRSD: 60 T: 53 QT: 305 QTc: 415 Interpretive Statements SINUS TACHYCARDIA BASELINE ARTIFACT- I, II, III, AVR, AVL, AVF ABNORMAL ECG Compared to ECG 04/12/2025 09:35:54 HEART RATE HAS INCREASED Electronically Signed On 04-18-2025 06:12:28 CDT by Amrit Toussaint D.O.
[2025-04-17 21:42] LABS: Hematocrit 43.4 % (37.0-47.0); Hemoglobin 14.3 g/dL (12.0-15.0); Immature Granulocyte Percent A 0.9 % (0-0.5); Lymphocytes Absolute Auto 3.55 K/mm3 (0.9-3.2); Mean Corpuscular HGB Conc 32.9 g/dl (32-36); Mean Corpuscular Hemoglobin 30.2 pg (26-34); Mean Corpuscular Volume 91.6 fl (80-100); Nucleated Red Blood Cells Absolute Auto 0.000 K/mm3 (0.0-0.012); Nucleated Red Blood Cells Perc 0.0 % (0.0-0.2); Platelet Count Result 269 k/mm3 (150-375); Red Blood Count 4.74 M/mm3 (4.2-5.4); White Blood Count 15.3 K/mm3 (4.5-10.0)
[2025-04-17 21:54] LABS: Alanine Aminotransferase 31 U/L (6-35); Albumin Level 4.3 g/dL (3.5-5.1); Alkaline Phosphatase 62 U/L (38-126); Anion Gap 7 mmol/L (4-12); Aspartate Amino Transferase 29 U/L (14-36); Bilirubin,Total 0.6 mg/dL (0.2-1.3); Blood Urea Nitrogen 10 mg/dL (7-17); Calcium 9.4 mg/dL (8.4-10.2); Carbon Dioxide 25 mmol/L (22-30); Chloride 103 mmol/L (98-107); Estimated CRCL calculation 46 ml/min; Estimated Glomerular Filt Rate 48; Glucose 143 mg/dL (65-110); Potassium 3.9 mmol/L (3.4-5.0); Sodium 135 mmol/L (137-145); Total Protein 7.2 g/dL (6.3-8.2)
[2025-04-17] MEDS: IPRATROPIUM 0.5 MG/ALBUTEROL SULFATE 2.5 MG (BASE) AMPUL.NEB 3 ML INHALATION (21:54)
[2025-04-17 22:18] LABS: Magnesium 2.2 mg/dL (1.6-2.3)
[2025-04-17 22:20] LABS: Influenza A QL RT-PCR Positive (Negative); Influenza B QL RT-PCR Negative (Negative); RSV RNA, RT-PCR Negative (Negative); SARS-CoV-2 RNA PCR Negative (Negative)
[2025-04-17 22:30] LABS: NT Pro B Type Natriuretic Pept 352 pg/mL (19.9-100); Troponin I < 0.012 ng/mL (0.000-0.034)
--- OUTSIDE RECORDS SUMMARY | 2025-04-17 22:42 | XMS_ITS | Clinical Summary ---
Author Organization [facility] [address] Address [address] [place] [address] Care Team Providers Care Turn Laster Name Role Phone Parish Valdez MD Primary Care Provider [phone] Allergies Active Allergy Reactions Criticality Noted Date [...] follow-up 01/20/2025 Coronary artery disease invo lving kaguyuk coronary artery of kaguy[place] heart without angina pectoris 01/20/2025 Atrial tachycardia 01/20/2025 Encounters Date Type Department Care Team Description 01/20/2025 10:30 AM CDT Office Visit [facility] Cardiology [address] [place] [address] Veronika Kim NP Hospital discharge follow-up (Primary Dx); Coronary artery disease involving kaguyuk coronary artery of [place]aguy[place] heart without angina pectoris; Atrial tachycardia from [...] 1:56 PM CDT Coronary artery disease involving kaguy[place] coronary artery of [place]aguy[place] heart without angina pectoris from Last 3 [...] 1 :56 PM CDT us Veronika Kim ICT HELP DESK TECHNICIAN POINT OF CARE TEST ORDERABLE S Final Result from Last [address] [place] [address] [place] [id number] Care Teams Turn Laster Relationship Specialty Start Date End Date Parish Valdez MD PCP - General Internal Medicine 01/01/24
--- OUTSIDE RECORDS SUMMARY | 2025-04-17 22:42 | XMS_ITS | Clinical Summary ---
Author Organization [facility] Address [address] [place] [address] Care Team Providers Care Refrigerator Room Clerk Name Role Phone Ethan Cerrato Primary Care Provider + Source Comments [facility],non-owned Affiliates and Associated Physician Practices is amultiple site organization consisting of ambulatory clinics and hospital sitesin [place], [place], [place] and [place]. This disclosure is being madepursuant to the Care Everywhere program and may not contain all information available regarding this patient. Last updated 18.[facility] Allergies No known active allergies Medications * [...] on file Legal Sex Female 8:53 AM HOROLOGIST Gender Identity Not on file Sexual Orientation Not on file Last Filed Vital Signs Vital Sign Reading Time Taken Comments Blood Pressure 122/80 07/25/2017 10:47 AM HOROLOGIST Pulse 80 07/25/2017 10:47 AM HOROLOGIST Temperature 36.8 C (98.2 F) 07/25/2017 10:47 AM HOROLOGIST Respiratory Rate 20 07/25/2017 10:47 AM HOROLOGIST Oxygen Saturation 94% 07/25/2017 10:47 AM HOROLOGIST Inhaled Oxygen Concentration - - Weight 74.8 kg (165 lb) 07/25/2017 10:47 AM HOROLOGIST Height 160 cm (5' 3) 07/25/2017 10:47 AM HOROLOGIST Body Mass Index 29.23 07/25/2017 10:47 AM HOROLOGIST Plan of Treatment Health Maintenance Due Date [...] patient's age to complete this topic Insurance [facility] Care Teams Refrigerator Room Clerk Relationship Specialty Start Date End Date Ethan Cerrato PA [address] [place] [address] PCP - General Physician Jtac 07/25/17
--- OUTSIDE RECORDS SUMMARY | 2025-04-17 22:42 | XMS_ITS | Encounter Summary ---
Author Organization [facility] Address [address] [place] [address] Care Team Providers Care Emergency Generator Mechanic Name Role Phone Parish Valdez MD Primary Care Provider [phone] Encounter Details Date Type Department Care Team (Late st Contact Info) Description 12/06/2024 Orders Only [facility] Health Information Management [address] [place] [id number] Scanning, Provider Social History Tobacco Use Types [...] on filedocumented in this encounter Care Teams Emergency Generator Mechanic Relationship Specialty Start Date End Date Parish Valdez MD PCP - General Internal Medicine 6/21/24 documented as of this encounter
--- OUTSIDE RECORDS SUMMARY | 2025-04-17 22:42 | XMS_ITS | Encounter Summary ---
Author Organization [facility] Address [address] [place] [address] Care Team Providers Care Ball Rolling Machine Operator Name Role Phone Parish Valdez MD Primary Care Provider [phone] Encounter Details Date Type Department Care Team (Late st Contact Info) Description 11/28/2024 Orders Only [facility] Health Information Management [address] [place] [id number] Cooper Mathias MD [address] [facility] [address] [facility] [place] [address] Social History Tobacco Use Types Packs/Day Years [...] on filedocumented in this encounter Care Teams Ball Rolling Machine Operator Relationship Specialty Start Date End Date Parish Valdez MD PCP - General Internal Medicine 01/01/24 documented as of this encounter
--- NOTE | 2025-04-17 23:27 | PC.NURSE ---
Walking O2 89% HR 129. Pt escorted back to room and placed back on oxygen and monitor. Will continue to follow.
[2025-04-17] MEDS: LORazepam (*CRX) 1 MG TABLET PO (23:31)
--- NOTE | 2025-04-17 23:42 | ED_ITS ---
HPI - General Adult General Chief complaint: Shortness of Breath/Dyspnea Stated complaint: SOB Time Seen by Provider: 04/17/25 21:23 History of Present Illness HPI narrative: Patient is 64-year-old female who presents emergency department with chief complaint of increasing shortness of breath patient reports she was diagnosis pneumonia while she was in the hospital was on antibiotics and discharged home on the patient reports she wears 2 L on as needed basis of oxygen reports she has anxiety COPD and asthma the patient reports that she has had some increasing work of breathing reports that she is currently not on steroids Related Data Home Medications ?Medication ?Instructions ?Recorded ?Confirmed ?Last Taken ?Type umeclidinium 62.5 mcg/actuation 1 inh inhalation DAILY 10/26/23 04/18/25 04/02/25 History blister powder for inhalation (Incruse Ellipta) fluticasone propionate 115 2 puff inhalation Q12H 11/1104/18/25 04/02/25 History mcg-salmeterol 21 mcg/actuation HFA inhaler albuterol sulfate 90 mcg/actuation 1 inh inhalation QI D PRN shortness 04/03/25 04/18/25 04/02/25 History aerosol inhaler of breath or wheezing Allergies Allergy/AdvReac Type Severity Reaction Status Date / Time codeine AdvReac Itching Verified 04/17/25 20:30 Review of Systems 2 Review of Systems: A 10 system review of systems was completed on the patient and is negative except for what is stated in the HPI. Nursing and ancillary documentation was reviewed. COUNT INCLUDES THE [facility] Past Medical History Medical History Anxiety Asthma Coronary artery disease (10/2023) Nuclear stress test showed a large, severe non reversible infarcts including multiple meyers of the apex and mid anterior and mid posterior segments consistent with infarct with no reversible ischemia. Tobacco abuse Chronic obstructive pulmonary disease Surgical History Surgical History History of cholecystectomy History of section Family History Family History Mother Cerebrovascular accident Sibling FH: CABG (coronary artery bypass surgery) Father Stented coronary artery Social History Social History Social History: Surrogate medical decision maker: Meghan Babcock, daughter. Code status: Full code. Smoking packs per day: 0.5 Smoking cigarettes per day: 10.0 Years smoked: 45 Smoking pack-years: 22.50 Smoking status: Current every day smoker Tobacco type: cigarettes Second hand tobacco smoke exposure: Yes Alcohol intake: former Drinks per week: 28 Substance use: never Substance use type: marijuana Other substance usage details: tried one time and quit Last use: 10/11/24 Do You Feel Safe in your Home?: Yes Lack of Transportation: No Lack of Food: Never True Current Housing: I Have Housing Concerned About Future Housing: No Difficulty Paying Gas/Electric Bills: No Difficulty Paying for Meds: No Currently Unemployed: No Education: High School Diploma/GED Difficulty w/ Childcare or Family Care: No Living arrangements: with family Spiritual care concerns: No Exam 2 Narrative: GENERAL: Well-appearing, well-nourished, and in no acute distress. HEAD: Normocephalic, atraumatic. EYES: PERRLA and EOMI. ENT: Nares clear, no rhinorrhea or epistaxis. Mucous membranes moist. NECK: Supple. CHEST: Scattered wheezes to auscultation. No respiratory distress. HEART: Regular rate and rhythm. No murmur heard. Normal peripheral pulses. ABDOMEN: Soft, nontender, nondistended, normal active bowel sounds. EXTREMITIES: Normal range of motion. No edema. SKIN: Warm, dry, no rash. NEURO: No focal deficits. Alert and oriented x3. PSYCH: Normal mood and affect. Course Vital Signs Vital signs: Vital Signs Temperature 36.4 C 04/17/25 20:34 Pulse Rate 120 H 04/17/25 20:34 Respiratory Rate 16 04/17/25 20:34 Blood Pressure 133/68 04/17/25 20:34 Pulse Oximetry 92 04/17/25 20:34 Oxygen Delivery Nasal Cannula 04/17/25 20:34 Oxygen Flow Rate 2 04/17/25 20:34 Temperature 36.4 C 04/17/25 20:34 Pulse Rate 115 H 04/18/25 01:46 Respiratory Rate 27 H 04/18/25 01:46 Blood Pressure 122/65 04/18/25 01:45 Pulse Oximetry 94 04/18/25 01:46 Oxygen Delivery Nasal Cannula 04/18/25 01:28 Oxygen Flow Rate 2 04/18/25 01:28 Fraction of Inspired Oxygen 28 04/18/25 01:28 Medical Decision Making MDM Narrative Medical decision making narrative: Differential diagnosis includes pneumonia, COPD exacerbation, asthma exacerbation COVID and RSV were negative influenza was still positive The patient was ambulatory pulse ox would drop down to 89% Chest x-ray showed Mild discoid atelectasis/scarring at the right middle lobe. No other acute cardiopulmonary disease. In discussion with the patient of whether for admission versus discharge patient reports that given her symptoms have gotten worse she would prefer to stay in the hospital Vital Signs Vital Signs: Vital Signs Temperature 36.4 C 04/17/25 20:34 Pulse Rate 120 H 04/17/25 20:34 Respiratory Rate 16 04/17/25 20:34 Blood Pressure 133/68 04/17/25 20:34 Pulse Oximetry 92 04/17/25 20:34 Oxygen Delivery Nasal Cannula 04/17/25 20:34 Oxygen Flow Rate 2 04/17/25 20:34 Temperature 36.4 C 04/17/25 20:34 Pulse Rate 115 H 04/18/25 01:46 Respiratory Rate 27 H 04/18/25 01:46 Blood Pressure 122/65 04/18/25 01:45 Pulse Oximetry 94 04/18/25 01:46 Oxygen Delivery Nasal Cannula 04/18/25 01:28 Oxygen Flow Rate 2 04/18/25 01:28 Fraction of Inspired Oxygen 28 04/18/25 01:28 Lab Data 04/17/25 21:29 04/17/25 21:29 Labs: Lab Results 04/17/25 04/17/25 04/18/25 Range/Units 21:29 21:31 00:18 WBC 15.3 H (4.5-10.0) K/mm3 RBC 4.74 (4.2-5.4) M/mm3 Hgb 14.3 (12.0-15.0) g/dL Hct 43.4 (37.0-47.0) % MCV 91.6 (80-100) fl MCH 30.2 (26-34) pg MCHC 32.9 (32-36) g/dl RDW 13.7 (11.5-14.5) % Plt Count 269 D (150-375) k/mm3 MPV 10.5 H (7.4-10.4) fl Immature Gran % (Auto) 0.9 H (0-0.5) % Neut % (Auto) 67.5 (45.5-73.1) % Lymph % (Auto) 23.2 (18.3-44.2) % Henry % (Auto) 6.4 (2.6-8.5) % Eos % (Auto) 1.7 (0-4.4) % Baso % (Auto) 0.3 (0.2-1.2) % Lymph # (Auto) 3.55 H (0.9-3.2) K/mm3 Henry # (Auto) 1.0 H (0.1-0.6) K/mm3 Eos # (Auto) 0.3 (0-0.3) K/mm3 Baso # (Auto) 0.1 (0.0-0.1) K/mm3 Abs Immat Gran (auto) 0.14 H (0.00-0.031) K/mm3 Absolute Neuts (auto) 10.4 H (1.3-6.7) K/mm3 Absolute Nucleated RBC 0.000 (0.0-0.012) K/mm3 Nucleated RBC % 0.0 (0.0-0.2) % Sodium 135 L (137-145) mmol/L Potassium 3.9 (3.4-5.0) mmol/L Chloride 103 (98-107) mmol/L Carbon Dioxide 25 (22-30) mmol/L Anion Gap 7 (4-12) mmol/L BUN 10 D (7-17) mg/dL Creatinine 1.15 H (0.7-1.0) mg/dL Estim Creat Clear Calc 46 ml/min Estimated GFR 48 L (59 - ) Glucose 143 H (65-110) mg/dL Lactic Acid 1.3 (0.7-2.0) mmol/L Calcium 9.4 (8.4-10.2) mg/dL Magnesium 2.2 (1.6-2.3) mg/dL Total Bilirubin 0.6 (0.2-1.3) mg/dL AST 29 (14-36) U/L ALT 31 (6-35) U/L Alkaline Phosphatase 62 (38-126) U/L Troponin I < 0.012 < 0.012 (0.000-0.034) ng/mL NT-Pro-B Natriuret Pep 352 H (19.9-100) pg/mL Total Protein 7.2 (6.3-8.2) g/dL Albumin 4.3 (3.5-5.1) g/dL Influenza A (RT-PCR) Positive A (Negative) Influenza B (RT-PCR) Negative (Negative) RSV (RT-PCR) Negative (Negative) SARS-CoV-2 RNA (RT-PCR) Negative (Negative) Discharge Plan Discharge Clinical Impression: Acute exacerbation of chronic obstructive pulmonary disease Patient Disposition: Still a Patient Condition: Stable
[2025-04-18] VITALS (24 sets, daily range): BP systolic 101–129; BP diastolic 55–101; PULSE 93–116; RESP 16–28; TEMP 36.6–37.3; O2SAT 90–97; BMI 30.2
[2025-04-18 00:47] LABS: Troponin I < 0.012 ng/mL (0.000-0.034)
[2025-04-18] MEDS: IPRATROPIUM 0.5 MG/ALBUTEROL SULFATE 2.5 MG (BASE) AMPUL.NEB 3 ML INHALATION ×4 (01:26→19:30)
--- NOTE | 2025-04-18 02:09 | ADMGEN ---
This patient, Minnie Anguiano, was admitted to 3 Med Surg Room 301-01. Received report from Pratibha in ER, arrived to unit @0200. Patient/family oriented to hospital policies and general routines including ID bracelet, bed and alarms, visiting hours, pain management, procedures, bathroom and other care routines, personal items, smoking policy, room service/diet, and visiting hours. Information on how to activate the Rapid Response Team has been discussed. Patient/Family are encouraged to report perceived risks to care and to ask questions if they do not understand what they are told or what they should do.
--- NOTE | 2025-04-18 07:28 | PM.IMHP ---
H&P: HPI History of Present Illness Date/Time: 04/18/25 07:28 Chief Complaint: shortness of breath Narrative: Patient is a 64 year old female with PMH of COPD, anxiety, CAD and tobacco abuse. Patient presented to the ER with complaints of shortness of breath. Patient was discharged from [facility] on 04/13 after being admitted for a COPD exacerbation and testing positive for influenza. Patient was diagnosed with a RLL pneumonia just before discharge and was discharged on PO Levaquin. Patient was also discharged on Tamiflu. Patient reports that she had increased work of breathing and palpitations which caused her to come to the ER. In the ER the patients CXR showed mild discoid atelectasis/scarring at the right middle lobe. No other acute cardiopulmonary disease. Patient was given nebulizer treatments and IV steroids. Patient was admitted for further evaluation and treatment. Review of Systems Review of Systems: All systems reviewed & are unremarkable except as noted in HPI and below PMFSH Past Medical History Medical History Anxiety Asthma Coronary artery disease (10/2023) Nuclear stress test showed a large, severe non reversible infarcts including multiple meyers of the apex and mid anterior and mid posterior segments consistent with infarct with no reversible ischemia. Tobacco abuse Chronic obstructive pulmonary disease Surgical History Surgical History History of cholecystectomy History of section Family History Family History Mother Cerebrovascular accident Sibling FH: CABG (coronary artery bypass surgery) Father Stented coronary artery Social History Social History Social History: Surrogate medical decision maker: Meghan Babcock, daughter. Code status: Full code. Smoking packs per day: 0.5 Smoking cigarettes per day: 10.0 Years smoked: 45 Smoking pack-years: 22.50 Smoking status: Current every day smoker Tobacco type: cigarettes Second hand tobacco smoke exposure: Yes Alcohol intake: former Drinks per week: 28 Substance use: never Substance use type: marijuana Other substance usage details: tried one time and quit Last use: 10/11/24 Do You Feel Safe in your Home?: Yes Lack of Transportation: No Lack of Food: Never True Current Housing: I Have Housing Concerned About Future Housing: No Difficulty Paying Gas/Electric Bills: No Difficulty Paying for Meds: No Currently Unemployed: No Education: High School Diploma/GED Difficulty w/ Childcare or Family Care: No Living arrangements: with family Spiritual care concerns: No Meds Home Medications and Allergies Home Medications ?Medication ?Instructions ?Recorded ?Confirmed ?Type umeclidinium 62.5 mcg/actuation 1 inh inhalation DAILY 10/26/23 04/18/25 History blister powder for inhalation (Incruse Ellipta) aspirin 81 mg chewable tablet 81 mg PO DAILY@0800 #30 tabs 11/24/24 04/18/25 Rx (Children's Aspirin) nicotine 21 mg/24 hr daily 1 patch transdermal DAILY #14 ea 11/24/24 04/18/25 Rx transdermal patch (Nicoderm CQ) rosuvastatin 20 mg tablet 20 mg PO EVENING #30 tabs 11/24/24 04/18/25 Rx buspirone 10 mg tablet 10 mg PO Q8H #90 tabs 11/29/24 04/18/25 Rx diltiazem HCl 180 mg 180 mg PO DAILY #30 caps 11/29/24 04/18/25 Rx capsule,extended release 24 hr (Cartia XT) levalbuterol HCl 1.25 mg/3 mL 1.25 mg (3 mL) inhalation Q4H PRN 11/29/24 04/18/25 Rx solution for nebulization shortness of breath or wheezing #72 mL fluticasone propionate 115 2 puff inhalation Q12H 12/06/24 04/18/25 History mcg-salmeterol 21 mcg/actuation HFA inhaler albuterol sulfate 90 mcg/actuation 1 inh inhalation QID PRN shortness 04/03/25 04/18/25 History aerosol inhaler of breath or wheezing levofloxacin 750 mg tablet 750 mg PO .q48 8 days #4 tabs 04/13/25 04/18/25 Rx oseltamivir 30 mg capsule (Tamiflu) 30 mg PO Q12HR 6 days #12 caps 04/13/25 04/18/25 Rx Allergies Allergy/AdvReac Type Severity Reaction Status Date / Time codeine AdvReac Itching Verified 04/17/25 20:30 Vital Signs Vital Signs - 24 hr 04/17/25 20:34 04/17/25 21:20 04/17/25 21:35 Temperature 97.6 F Pulse Rate 120 H 115 H Respiratory Rate 16 18 Blood Pressure 133/68 Pulse Oximetry 92 93 96 Oxygen Delivery Nasal Cannula Nasal Cannula Oxygen Flow Rate 2 2 Fraction of Inspired Oxygen 04/17/25 21:45 04/17/25 21:46 04/17/25 21:47 Temperature Pulse Rate 112 H 119 H 114 H Respiratory Rate 25 H 23 H 20 Blood Pressure 136/122 H Pulse Oximetry 95 97 96 Oxygen Delivery Oxygen Flow Rate Fraction of Inspired Oxygen 04/17/25 21:55 04/17/25 22:00 04/17/25 22:00 Temperature Pulse Rate 110 H 107 H Respiratory Rate 20 22 H Blood Pressure 119/77 Pulse Oximetry 98 96 Oxygen Delivery Nasal Cannula Oxygen Flow Rate 2 Fraction of Inspired Oxygen 28 04/17/25 22:01 04/17/25 22:04 04/17/25 22:15 Temperature Pulse Rate 108 H 106 H 110 H Respiratory Rate 18 20 20 Blood Pressure 132/73 Pulse Oximetry 98 94 Oxygen Delivery Oxygen Flow Rate Fraction of Inspired Oxygen 04/17/25 22:16 04/17/25 22:47 04/17/25 23:00 Temperature Pulse Rate 112 H 113 H Respiratory Rate 18 26 H Blood Pressure Pulse Oximetry 96 96 93 Oxygen Delivery Oxygen Flow Rate Fraction of Inspired Oxygen 04/17/25 23:01 04/17/25 23:15 04/17/25 23:16 Temperature Pulse Rate 111 H 115 H 115 H Respiratory Rate 18 27 H 30 H Blood Pressure 119/88 127/83 Pulse Oximetry 96 89 L 94 Oxygen Delivery Oxygen Flow Rate Fraction of Inspired Oxygen 04/17/25 23:30 04/17/25 23:31 04/17/25 23:45 Temperature Pulse Rate 111 H 110 H 110 H Respiratory Rate 26 H 26 H 31 H Blood Pressure 140/72 110/76 Pulse Oximetry 93 95 93 Oxygen Delivery Oxygen Flow Rate Fraction of Inspired Oxygen 04/17/25 23:46 04/18/25 00:08 04/18/25 00:15 Temperature Pulse Rate 108 H 113 H 113 H Respiratory Rate 23 H 26 H 18 Blood Pressure 129/101 H Pulse Oximetry 95 95 94 Oxygen Delivery Oxygen Flow Rate Fraction of Inspired Oxygen 04/18/25 00:16 04/18/25 00:30 04/18/25 00:31 Temperature Pulse Rate 114 H 109 H 112 H Respiratory Rate 26 H 21 H 23 H Blood Pressure 122/83 Pulse Oximetry 95 95 95 Oxygen Delivery Oxygen Flow Rate Fraction of Inspired Oxygen 04/18/25 00:45 04/18/25 01:22 04/18/25 01:27 Temperature Pulse Rate 115 H 108 H 111 H Respiratory Rate 16 25 H 20 Blood Pressure 114/79 Pulse Oximetry 95 96 Oxygen Delivery Oxygen Flow Rate Fraction of Inspired Oxygen 04/18/25 01:28 04/18/25 01:30 04/18/25 01:31 Temperature Pulse Rate 111 H 112 H 113 H Respiratory Rate 20 20 26 H Blood Pressure 117/85 Pulse Oximetry 97 97 97 Oxygen Delivery Nasal Cannula Oxygen Flow Rate 2 Fraction of Inspired Oxygen 04/18/25 01:45 04/18/25 01:46 04/18/25 03:20 Temperature Pulse Rate 114 H 115 H Respiratory Rate 28 H 27 H Blood Pressure 122/65 Pulse Oximetry 90 94 95 Oxygen Delivery Nasal Cannula Oxygen Flow Rate 2 Fraction of Inspired Oxygen 04/18/25 04:05 Temperature 97.9 F Pulse Rate 106 H Respiratory Rate 20 Blood Pressure 117/85 Pulse Oximetry 94 Oxygen Delivery Oxygen Flow Rate Fraction of Inspired Oxygen Exam Const: General: no acute distress HENMT: Face/Nose/Sinus: Normal nares present Mouth: Yes moist mucous membranes Eyes: General: appearance normal, both eyes and all related structures Sclera: sclerae normal Neck: Neck: supple Resp: Auscultation: diminished lung sounds Cardio: Rate: regular rate Rhythm: regular rhythm GI: GI Palp: Yes Soft to palpation Auscultation: normal bowel sounds Skin: General skin exam: normal color and no rashes or lesions noted Neuro: Speech: normal speech Motor exam (neuro): 5/5 motor strength present throughout Sensory Exam: normal sensation Extrem: General: normal to inspection Psych: Mental Status: mental status grossly normal Affect: normal affect H&P: Results Labs Labs: Short CBC 04/17/25 Range/Units 21:29 WBC 15.3 H (4.5-10.0) K/mm3 Hgb 14.3 (12.0-15.0) g/dL Hct 43.4 (37.0-47.0) % Plt Count 269 D (150-375) k/mm3 [facility] 04/17/25 21:29 Sodium 135 L Potassium 3.9 Chloride 103 Carbon Dioxide 25 BUN 10 D Creatinine 1.15 H Glucose 143 H Calcium 9.4 Cardiac Enzymes 04/17/25 04/18/25 Range/Units 21:29 00:18 Troponin I < 0.012 < 0.012 (0.000-0.034) ng/mL Liver Function 04/17/25 Range/Units 21:29 Total Bilirubin 0.6 (0.2-1.3) mg/dL AST 29 (14-36) U/L ALT 31 (6-35) U/L Alkaline Phosphatase 62 (38-126) U/L Albumin 4.3 (3.5-5.1) g/dL Assessment and Plan Assessment and plan (1) Acute exacerbation of chronic obstructive pulmonary disease: Code(s): J44.1 - Chronic obstructive pulmonary disease with (acute) exacerbation Status: Acute Assessment and Plan: patient was recently hospitalized and discharged home on 04/13 Steroids were avoided due to influenza diagnosis s/p cxr without acute findings continue IV steroids continue PO Levaquin for pneumonia diagnosed on 04/12 nebulizer treatments inhalers patient refusing pulmonary consult O2 by NC 2L, patient at her home dose monitor respiratory status (2) Influenza A: Code(s): J10.1 - Influenza due to other identified influenza virus with other respiratory manifestations Status: Acute Assessment and Plan: patient is still positve for influenza A continue Tamiflu 30 mg x 5 more doses to complete 10 days of treatment supportive care (3) Leukocytosis: Code(s): D72.829 - Elevated white blood cell count, unspecified Status: Acute Assessment and Plan: wbc 15.3 on admission no clear site of infection identified continue PO Levaquin from previous discharge AM labs (4) Tachycardia: Code(s): R00.0 - Tachycardia, unspecified Status: Acute Assessment and Plan: patient has a history of SVT continue diltiazem telemetry (5) Anxiety: Code(s): F41.9 - Anxiety disorder, unspecified Status: Chronic Assessment and Plan: continue buspirone (6) Tobacco abuse: Code(s): Z72.0 - Tobacco use Status: Chronic Assessment and Plan: encourage smoking cessation nicotine patch (7) Chronic hypoxic respiratory failure: Code(s): J96.11 - Chronic respiratory failure with hypoxia Status: Acute Assessment and Plan: patient is on 2L 02 at home monitor Quality VTE Prophylaxis VTE prophylaxis: pharmacologic ordered
--- NOTE | 2025-04-18 09:07 | PM.CNPUL ---
History of Present Illness History of Present Illness Consult date: 04/18/25 Chief complaint: Acute exacerbation of COPD [facility] Past Medical History Medical History Anxiety Asthma Coronary artery disease (10/2023) Nuclear stress test showed a large, severe non reversible infarcts including multiple meyers of the apex and mid anterior and mid posterior segments consistent with infarct with no reversible ischemia. Tobacco abuse Chronic obstructive pulmonary disease Surgical History Surgical History History of cholecystectomy History of section Family History Family History Mother Cerebrovascular accident Sibling FH: CABG (coronary artery bypass surgery) Father Stented coronary artery Social History Social History Social History: Surrogate medical decision maker: Meghan Babcock, daughter. Code status: Full code. Smoking packs per day: 0.5 Smoking cigarettes per day: 10.0 Years smoked: 45 Smoking pack-years: 22.50 Smoking status: Current every day smoker Tobacco type: cigarettes Second hand tobacco smoke exposure: Yes Alcohol intake: former Drinks per week: 28 Substance use: never Substance use type: marijuana Other substance usage details: tried one time and quit Last use: 10/11/24 Do You Feel Safe in your Home?: Yes Lack of Transportation: No Lack of Food: Never True Current Housing: I Have Housing Concerned About Future Housing: No Difficulty Paying Gas/Electric Bills: No Difficulty Paying for Meds: No Currently Unemployed: No Education: High School Diploma/GED Difficulty w/ Childcare or Family Care: No Living arrangements: with family Spiritual care concerns: No Meds Home Medications and Allergies Home Medications ?Medication ?Instructions ?Recorded ?Confirmed ?Type umeclidinium 62.5 mcg/actuation 1 inh inhalation DAILY 10/26/23 04/18/25 History blister powder for inhalation (Incruse Ellipta) aspirin 81 mg chewable tablet 81 mg PO DAILY@0800 #30 tabs 11/24/24 04/18/25 Rx (Children's Aspirin) nicotine 21 mg/24 hr daily 1 patch transdermal DAILY #14 ea 11/24/24 04/18/25 Rx transdermal patch (Nicoderm CQ) rosuvastatin 20 mg tablet 20 mg PO EVENING #30 tabs 11/24/24 04/18/25 Rx buspirone 10 mg tablet 10 mg PO Q8H #90 tabs 11/29/24 04/18/25 Rx diltiazem HCl 180 mg 180 mg PO DAILY #30 caps 11/29/24 04/18/25 Rx capsule,extended release 24 hr (Cartia XT) levalbuterol HCl 1.25 mg/3 mL 1.25 mg (3 mL) inhalation Q4H PRN 11/29/24 04/18/25 Rx solution for nebulization shortness of breath or wheezing #72 mL fluticasone propionate 115 2 puff inhalation Q12H 12/06/24 04/18/25 History mcg-salmeterol 21 mcg/actuation HFA inhaler albuterol sulfate 90 mcg/actuation 1 inh inhalation QID PRN shortness 04/03/25 04/18/25 History aerosol inhaler of breath or wheezing levofloxacin 750 mg tablet 750 mg PO .q48 8 days #4 tabs 04/13/25 04/18/25 Rx oseltamivir 30 mg capsule (Tamiflu) 30 mg PO Q12HR 6 days #12 caps 04/13/25 04/18/25 Rx Allergies Allergy/AdvReac Type Severity Reaction Status Date / Time codeine AdvReac Itching Verified 04/17/25 20:30 Vital Signs Vital Signs - 24 hr 04/17/25 20:34 04/17/25 21:20 04/17/25 21:35 Temperature 36.4 C Pulse Rate 120 H 115 H Respiratory Rate 16 18 Blood Pressure 133/68 Pulse Oximetry 92 93 96 Oxygen Delivery Nasal Cannula Nasal Cannula Oxygen Flow Rate 2 2 Fraction of Inspired Oxygen 04/17/25 21:45 04/17/25 21:46 04/17/25 21:47 Temperature Pulse Rate 112 H 119 H 114 H Respiratory Rate 25 H 23 H 20 Blood Pressure 136/122 H Pulse Oximetry 95 97 96 Oxygen Delivery Oxygen Flow Rate Fraction of Inspired Oxygen 04/17/25 21:55 04/17/25 22:00 04/17/25 22:00 Temperature Pulse Rate 110 H 107 H Respiratory Rate 20 22 H Blood Pressure 119/77 Pulse Oximetry 98 96 Oxygen Delivery Nasal Cannula Oxygen Flow Rate 2 Fraction of Inspired Oxygen 28 04/17/25 22:01 04/17/25 22:04 04/17/25 22:15 Temperature Pulse Rate 108 H 106 H 110 H Respiratory Rate 18 20 20 Blood Pressure 132/73 Pulse Oximetry 98 94 Oxygen Delivery Oxygen Flow Rate Fraction of Inspired Oxygen 04/17/25 22:16 04/17/25 22:47 04/17/25 23:00 Temperature Pulse Rate 112 H 113 H Respiratory Rate 18 26 H Blood Pressure Pulse Oximetry 96 96 93 Oxygen Delivery Oxygen Flow Rate Fraction of Inspired Oxygen 04/17/25 23:01 04/17/25 23:15 04/17/25 23:16 Temperature Pulse Rate 111 H 115 H 115 H Respiratory Rate 18 27 H 30 H Blood Pressure 119/88 127/83 Pulse Oximetry 96 89 L 94 Oxygen Delivery Oxygen Flow Rate Fraction of Inspired Oxygen 04/17/25 23:30 04/17/25 23:31 04/17/25 23:45 Temperature Pulse Rate 111 H 110 H 110 H Respiratory Rate 26 H 26 H 31 H Blood Pressure 140/72 110/76 Pulse Oximetry 93 95 93 Oxygen Delivery Oxygen Flow Rate Fraction of Inspired Oxygen 04/17/25 23:46 04/18/25 00:08 04/18/25 00:15 Temperature Pulse Rate 108 H 113 H 113 H Respiratory Rate 23 H 26 H 18 Blood Pressure 129/101 H Pulse Oximetry 95 95 94 Oxygen Delivery Oxygen Flow Rate Fraction of Inspired Oxygen 04/18/25 00:16 04/18/25 00:30 04/18/25 00:31 Temperature Pulse Rate 114 H 109 H 112 H Respiratory Rate 26 H 21 H 23 H Blood Pressure 122/83 Pulse Oximetry 95 95 95 Oxygen Delivery Oxygen Flow Rate Fraction of Inspired Oxygen 04/18/25 00:45 04/18/25 01:22 04/18/25 01:27 Temperature Pulse Rate 115 H 108 H 111 H Respiratory Rate 16 25 H 20 Blood Pressure 114/79 Pulse Oximetry 95 96 Oxygen Delivery Oxygen Flow Rate Fraction of Inspired Oxygen 04/18/25 01:28 04/18/25 01:30 04/18/25 01:31 Temperature Pulse Rate 111 H 112 H 113 H Respiratory Rate 20 20 26 H Blood Pressure 117/85 Pulse Oximetry 97 97 97 Oxygen Delivery Nasal Cannula Oxygen Flow Rate 2 Fraction of Inspired Oxygen 28 04/18/25 01:45 04/18/25 01:46 04/18/25 03:20 Temperature Pulse Rate 114 H 115 H Respiratory Rate 28 H 27 H Blood Pressure 122/65 Pulse Oximetry 90 94 95 Oxygen Delivery Nasal Cannula Oxygen Flow Rate 2 Fraction of Inspired Oxygen 04/18/25 04:05 04/18/25 07:38 04/18/25 07:41 Temperature 36.6 C Pulse Rate 106 H 116 H 113 H Respiratory Rate 20 20 20 Blood Pressure 117/85 Pulse Oximetry 94 94 Oxygen Delivery Nasal Cannula Oxygen Flow Rate 2 Fraction of Inspired Oxygen 04/18/25 07:41 Temperature Pulse Rate 113 H Respiratory Rate 20 Blood Pressure Pulse Oximetry Oxygen Delivery Oxygen Flow Rate Fraction of Inspired Oxygen Results Laboratory Findings 04/17/25 21:29 04/17/25 21:29 Abnormal lab findings: Abnormal Labs 04/17/25 04/17/25 21:29 21:31 WBC 15.3 H MPV 10.5 H Immature Gran % (Auto) 0.9 H Lymph # (Auto) 3.55 H [place] # (Auto) 1.0 H Abs Immat Gran (auto) 0.14 H Absolute Neuts (auto) 10.4 H Sodium 135 L Creatinine 1.15 H Estimated GFR 48 L Glucose 143 H NT-Pro-B Natriuret Pep 352 H Influenza A (RT-PCR) Positive A
[2025-04-18] MEDS: ASPIRIN 81 MG CHEWABLE TABLET PO (09:16)
[2025-04-18] MEDS: dilTIAZem HCL CD 180 MG CAP.24HR PO (09:16)
[2025-04-18] MEDS: NICOTINE (*PBKC) 21 MG PATCH 1 PATCH TRANSDERM (09:16)
[2025-04-18] MEDS: UMECLIDINIUM BROMIDE 62.5 MCG ELLIPTA 1 PUFF INHALATION (10:20)
[2025-04-18] MEDS: FLUTICASONE/SALMETEROL 115-21 MCG INHALER 1 PUFF 2 PUFF INHALATION (13:33)
[2025-04-18] MEDS: ROSUVASTATIN 20 MG TABLET PO (18:38)
[2025-04-18] MEDS: ACETAMINOPHEN 325 MG TABLET 650 MG PO (20:43)
[2025-04-18] MEDS: OSELTAMIVIR PHOSPHATE 30 MG CAPSULE PO (20:44)
[2025-04-19] VITALS (11 sets, daily range): BP systolic 109–141; BP diastolic 58–67; PULSE 94–115; RESP 14–20; TEMP 36.1–37; O2SAT 91–95
[2025-04-19] MEDS: IPRATROPIUM 0.5 MG/ALBUTEROL SULFATE 2.5 MG (BASE) AMPUL.NEB 3 ML INHALATION ×2 (02:20→07:58)
[2025-04-19 07:02] LABS: Hematocrit 38.7 % (37.0-47.0); Hemoglobin 12.2 g/dL (12.0-15.0); Immature Granulocyte Percent A 0.8 % (0-0.5); Lymphocytes Absolute Auto 0.68 K/mm3 (0.9-3.2); Mean Corpuscular HGB Conc 31.5 g/dl (32-36); Mean Corpuscular Hemoglobin 29.5 pg (26-34); Mean Corpuscular Volume 93.7 fl (80-100); Nucleated Red Blood Cells Absolute Auto 0.000 K/mm3 (0.0-0.012); Nucleated Red Blood Cells Perc 0.0 % (0.0-0.2); Platelet Count Result 246 k/mm3 (150-375); Red Blood Count 4.13 M/mm3 (4.2-5.4); White Blood Count 17.4 K/mm3 (4.5-10.0)
[2025-04-19 07:14] LABS: Alanine Aminotransferase 23 U/L (6-35); Albumin Level 3.8 g/dL (3.5-5.1); Alkaline Phosphatase 53 U/L (38-126); Anion Gap 4 mmol/L (4-12); Aspartate Amino Transferase 21 U/L (14-36); Bilirubin,Total 0.3 mg/dL (0.2-1.3); Blood Urea Nitrogen 21 mg/dL (7-17); Calcium 9.2 mg/dL (8.4-10.2); Carbon Dioxide 28 mmol/L (22-30); Chloride 102 mmol/L (98-107); Estimated CRCL calculation 47 ml/min; Estimated Glomerular Filt Rate 48; Glucose 182 mg/dL (65-110); Potassium 4.3 mmol/L (3.4-5.0); Sodium 134 mmol/L (137-145); Total Protein 6.2 g/dL (6.3-8.2)
[2025-04-19] MEDS: UMECLIDINIUM BROMIDE 62.5 MCG ELLIPTA 1 PUFF INHALATION (07:59)
[2025-04-19] MEDS: ASPIRIN 81 MG CHEWABLE TABLET PO (08:57)
[2025-04-19] MEDS: dilTIAZem HCL CD 180 MG CAP.24HR PO (08:57)
[2025-04-19] MEDS: NICOTINE (*PBKC) 21 MG PATCH 1 PATCH TRANSDERM (08:57)
[2025-04-19] MEDS: OSELTAMIVIR PHOSPHATE 30 MG CAPSULE PO ×2 (08:57→21:25)
[2025-04-19] MEDS: ENOXAPARIN 40 MG/0.4 ML SYRINGE SUB-Q (08:58)
--- NOTE | 2025-04-19 13:58 | P.PNIM_ITS ---
Progress Note: A&P Assessment and Plan (1) Acute hypoxic on chronic hypercapnic respiratory failure: Code(s): J96.01 - Acute respiratory failure with hypoxia; J96.12 - Chronic respiratory failure with hypercapnia Status: Acute Assessment and Plan: Patient with chronic respiratory failure with hypoxia wears 2 L supplemental oxygen at home presented with worsening shortness of breath secondary to influenza a and COPD exacerbation. * Continue with supplemental oxygen 2 L may increase to maintain 92% (2) Influenza A: Code(s): J10.1 - Influenza due to other identified influenza virus with other respiratory manifestations Status: Acute Assessment and Plan: patient is still positive for influenza A * continue Tamiflu 30 mg x 5 more doses to complete 10 days of treatment * supportive care with acetaminophen and antiemetics (3) Acute exacerbation of chronic obstructive pulmonary disease: Code(s): J44.1 - Chronic obstructive pulmonary disease with (acute) exacerbation Status: Acute Assessment and Plan: patient was recently hospitalized and discharged home on 04/13, CXR No acute issues * Steroids PO 40mg daily * continue PO Levaquin for pneumonia diagnosed on 04/12 * nebulizer treatments Levalbuterol due to tachycardia * inhalers PRN * patient refusing pulmonary consult * O2 by NC 2L, patient at her home dose * Mucolytics b.i.d. * Incentive spirometer while awake (4) Anxiety: Code(s): F41.9 - Anxiety disorder, unspecified Status: Acute Assessment and Plan: * Continued patient buspar * Added sertraline 25mg HS * Ativan PRN for breakthrough anxiety (5) Tobacco abuse: Code(s): Z72.0 - Tobacco use Status: Chronic Assessment and Plan: * Encourage smoking cessation * Nicotine patch * Removed at night Plan Code status: Full code per patient DVT prophylaxis: Lovenox Stress ulcer prophylaxis: KARL PT/OT notes: PT/OT Disposition: Patient continues admission the medical unit for treatment of acute on chronic respiratory failure secondary to influenza and COPD exacerbation. Patient chronically wears 2 L supplemental oxygen will discharge home on this when medically stable patient is ambulatory on own plan for discharge home. Time Spent With Patient Time with patient: 15 - 25 minutes Subjective Date/time seen: 04/19/25 13:58 Interval history: Patient admitted for evaluation and treatment chronic respiratory failure with hypoxia wears 2 L home secondary to influenza a and COPD exacerbation. 04/19/2025: Assumed Care Patient still SOB with tachypnea and reports worse with any excertion. Patient also reporting anxiety worse then baseline due to difficulty breathing. Patient denied CP, N/V fever or chills Review of Systems Review of Systems: All systems reviewed & are unremarkable except as noted in HPI and below Exam Narrative: Looks anxious, Const: Other: Looks anxious, feeling short of breath HENMT: Mouth: Yes moist mucous membranes Eyes: General: appearance normal, both eyes and all related structures Sclera: sclerae normal Neck: Neck: supple Resp: Other: Bilateral decreased breath sounds, no wheezing heard, Tachypnea Cardio: Rate: tachycardic Rhythm: regular rhythm GI: Auscultation: normal bowel sounds Skin: General skin exam: normal color Neuro: Speech: normal speech Motor exam (neuro): 5/5 motor strength present throughout Extrem: General: normal to inspection Other: No edema Psych: Mental Status: mental status grossly normal Objective Data Vital Signs Vital Signs: Vital Signs - 24 hr 04/18/25 15:23 04/18/25 19:30 04/18/25 19:30 Temperature 97.9 F Pulse Rate 100 103 H 103 H Respiratory Rate 20 18 18 Blood Pressure 118/64 Pulse Oximetry 91 93 Oxygen Delivery Nasal Cannula Oxygen Flow Rate 2 04/18/25 19:40 04/18/25 20:03 04/19/25 02:20 Temperature 99.1 F Pulse Rate 102 H 103 H 96 Respiratory Rate 16 20 14 Blood Pressure 101/55 L Pulse Oximetry 91 Oxygen Delivery Oxygen Flow Rate 04/19/25 02:30 04/19/25 04:57 04/19/25 07:59 Temperature 97.6 F Pulse Rate 96 95 94 Respiratory Rate 16 18 20 Blood Pressure 121/67 Pulse Oximetry 93 95 Oxygen Delivery Nasal Cannula Oxygen Flow Rate 2 04/19/25 07:59 04/19/25 08:00 04/19/25 08:08 Temperature Pulse Rate 94 107 H Respiratory Rate 20 20 Blood Pressure Pulse Oximetry 92 Oxygen Delivery Nasal Cannula Oxygen Flow Rate 2 Intake/Output Intake/Output: Intake & Output 04/16/25 04/17/25 04/18/25 04/19/25 23:59 23:59 23:59 23:59 Intake Total 1630 876 Balance 1630 876 Meds/Results Medications: Active Medications Generic Name Dose Route Start Last Admin Trade Name Freq PRN Reason Stop Dose Admin Acetaminophen 650 mg 04/18/25 00:29 04/18/25 20:43 Acetaminophen 325 Mg Tablet PO 650 mg Q4H PRN Administration Mild Pain (1-3) or Fever Aspirin 81 mg 04/18/25 08:00 04/19/25 08:57 Aspirin 81 Mg Chewable Tablet PO 81 mg DAILY@0800 EMILY Administration Buspirone HCl 10 mg 04/18/25 07:40 04/19/25 13:48 Buspirone Hcl 10 Mg Tablet PO 10 mg Q8HR [facility] Administration Diltiazem HCl 180 mg 04/18/25 09:00 04/19/25 08:57 Diltiazem Hcl Cd 180 Mg Cap.24hr PO 180 mg DAILY [facility] Administration Enoxaparin Sodium 40 mg 04/19/25 09:00 04/19/25 08:58 Enoxaparin 40 Mg/0.4 Ml Syringe SUB-Q 40 mg DAILY [facility] Administration Guaifenesin 1,200 mg 04/19/25 21:00 Guaifenesin 12 Hr 600 Mg Tabcr PO Q12HR [facility] Levalbuterol HCl 1.25 mg 04/18/25 07:37 Levalbuterol Neb 1.25 Mg/3 Ml INHALATION Q4HRT PRN Shortness Of Breath Or Wheezing Levalbuterol HCl 1.25 mg 04/19/25 14:00 Levalbuterol Neb 1.25 Mg/3 Ml INHALATION Q6HRT [facility] Levofloxacin 750 mg 04/19/25 09:00 04/19/25 08:57 Levofloxacin 750 Mg Tablet PO 04/21/25 09:01 750 mg Q48H [facility] Administration Nicotine 1 patch 04/18/25 09:00 04/19/25 08:57 Nicotine (*Rafaela) 21 Mg Patch TRANSDERM 1 patch DAILY [facility] Administration Ondansetron HCl 4 mg 04/18/25 00:29 Ondansetron Inj 4 Mg/2 Ml Vial IV PUSH Q4H PRN Nausea Oseltamivir Phosphate 30 mg 04/18/25 21:00 04/19/25 08:57 Oseltamivir Phosphate 30 Mg Capsule PO 04/20/25 21:01 30 mg Q12HR EMILY Administration Prednisone 40 mg 04/20/25 08:00 Prednisone 20 Mg Tablet PO DAILY@0800 [facility] Rosuvastatin Calcium 20 mg 04/18/25 18:00 04/18/25 18:38 Rosuvastatin 20 Mg Tablet PO 20 mg QPM [facility] Administration Sertraline HCl 25 mg 04/19/25 21:00 Sertraline Hcl 25 Mg Tablet PO QHS [facility] Umeclidinium [place] 1 puff 04/18/25 08:00 04/19/25 07:59 Umeclidinium [place] 62.5 Mcg Ellipta INHALATION 1 puff DAILYRT EMILY Administration Radiology Results: ITS Impressions Chest X-Ray 04/17/25 22:07 IMPRESSION: 1. Mild discoid atelectasis/scarring at the right middle lobe. No other acute cardiopulmonary disease. Labs Labs: Laboratory Results - last 24 hr 04/18/25 04/19/25 20:39 05:27 WBC 17.4 H RBC 4.13 L Hgb 12.2 Hct 38.7 MCV 93.7 MCH 29.5 MCHC 31.5 L RDW 13.4 Plt Count 246 MPV 11.1 H Immature Gran % (Auto) 0.8 H Neut % (Auto) 92.8 H Lymph % (Auto) 3.9 L [place] % (Auto) 2.4 L Eos % (Auto) 0.0 Baso % (Auto) 0.1 L Lymph # (Auto) 0.68 L [place] # (Auto) 0.4 Eos # (Auto) 0.0 Baso # (Auto) 0.0 Abs Immat Gran (auto) 0.14 H Absolute Neuts (auto) 16.1 H Absolute Nucleated RBC 0.000 Nucleated RBC % 0.0 Sodium 134 L Potassium 4.3 Chloride 102 Carbon Dioxide 28 Anion Gap 4 BUN 21 H D Creatinine 1.15 H Estim Creat Clear Calc 47 Estimated GFR 48 L Glucose 182 H POC Capillary Glucose 220 H Calcium 9.2 Total Bilirubin 0.3 AST 21 ALT 23 Alkaline Phosphatase 53 Total Protein 6.2 L Albumin 3.8 Quality VTE Prophylaxis VTE prophylaxis: pharmacologic ordered -Patient's previous records reviewed on admission -ER notes reviewed in detail on admission -discussed all findings and current treatment plan with patient/Family/POA -Consultations reviewed for recommendations -Patient's disposition for safe discharge discussed with case management director -radiology imaging, EKG and test results I have personally reviewed and interpreted unless otherwise specified Dictation performed by [employer] direct speech recognition software, therefore radiologic technician variants and typographical errors may occur. Hospitalist MIPS Advance Care Plan I have confirmed that the patient's Advanced Care Plan is present, code status is documented, or surrogate decision maker is listed in patient medical record.: Yes Medication Reconciliation I have utilized all available resources to obtain, update and review the patients current medications (includes all prescriptions, OTC, herbals, cannabis, and nutritional supplements).: Yes The patient is not eligible for med reconciliation; the patient is in a emergent medical situation where delaying treatment would jeopardize the patients health.: No
[2025-04-19] MEDS: CALCIUM CARBONATE (TUMS) 500 MG (200 MG ELEMENTAL) PO (15:30)
[2025-04-19] MEDS: ROSUVASTATIN 20 MG TABLET PO (17:22)
[2025-04-19] MEDS: SERTRALINE HCL 25 MG TABLET PO (21:21)
[2025-04-19] MEDS: guaiFENesin 12 HR 600 MG TABCR 1200 MG PO (21:22)
[2025-04-20] VITALS (12 sets, daily range): BP systolic 109–140; BP diastolic 49–65; PULSE 82–90; RESP 16–20; TEMP 36.4–36.7; O2SAT 84–96
[2025-04-20 05:44] LABS: Hematocrit 37.3 % (37.0-47.0); Hemoglobin 11.7 g/dL (12.0-15.0); Mean Corpuscular HGB Conc 31.4 g/dl (32-36); Mean Corpuscular Hemoglobin 29.6 pg (26-34); Mean Corpuscular Volume 94.4 fl (80-100); Platelet Count Result 241 k/mm3 (150-375); Red Blood Count 3.95 M/mm3 (4.2-5.4); White Blood Count 16.8 K/mm3 (4.5-10.0)
[2025-04-20 06:08] LABS: Alanine Aminotransferase 23 U/L (6-35); Albumin Level 3.8 g/dL (3.5-5.1); Alkaline Phosphatase 48 U/L (38-126); Anion Gap 5 mmol/L (4-12); Aspartate Amino Transferase 18 U/L (14-36); Bilirubin,Total 0.3 mg/dL (0.2-1.3); Blood Urea Nitrogen 29 mg/dL (7-17); Calcium 9.2 mg/dL (8.4-10.2); Carbon Dioxide 30 mmol/L (22-30); Chloride 101 mmol/L (98-107); Estimated CRCL calculation 47 ml/min; Estimated Glomerular Filt Rate 48; Glucose 144 mg/dL (65-110); Magnesium 2.6 mg/dL (1.6-2.3); Potassium 4.6 mmol/L (3.4-5.0); Sodium 136 mmol/L (137-145); Total Protein 6.1 g/dL (6.3-8.2)
[2025-04-20] MEDS: dilTIAZem HCL CD 180 MG CAP.24HR PO (08:42)
[2025-04-20] MEDS: OSELTAMIVIR PHOSPHATE 30 MG CAPSULE PO ×2 (08:42→21:46)
[2025-04-20] MEDS: guaiFENesin 12 HR 600 MG TABCR 1200 MG PO ×2 (08:42→21:46)
[2025-04-20] MEDS: ASPIRIN 81 MG CHEWABLE TABLET PO (08:43)
[2025-04-20] MEDS: NICOTINE (*PBKC) 21 MG PATCH 1 PATCH TRANSDERM (08:43)
[2025-04-20] MEDS: ALPRAZolam (*CRX) 0.5 MG TABLET PO ×2 (08:47→21:46)
--- NOTE | 2025-04-20 13:27 | P.PNIM_ITS ---
Progress Note: A&P Assessment and Plan (1) Acute hypoxic on chronic hypercapnic respiratory failure: Code(s): J96.01 - Acute respiratory failure with hypoxia; J96.12 - Chronic respiratory failure with hypercapnia Status: Acute Assessment and Plan: Patient with chronic respiratory failure with hypoxia wears 2 L supplemental oxygen at home presented with worsening shortness of breath secondary to influenza a and COPD exacerbation. * Continue with supplemental oxygen 2 L may increase to maintain 92% (2) Influenza A: Code(s): J10.1 - Influenza due to other identified influenza virus with other respiratory manifestations Status: Acute Assessment and Plan: patient is still positive for influenza A * continue Tamiflu 30 mg x 5 more doses to complete 10 days of treatment * supportive care with acetaminophen and antiemetics (3) Acute exacerbation of chronic obstructive pulmonary disease: Code(s): J44.1 - Chronic obstructive pulmonary disease with (acute) exacerbation Status: Acute Assessment and Plan: patient was recently hospitalized and discharged home on 04/13, CXR No acute issues * Steroids PO 40mg daily * continue PO Levaquin for pneumonia diagnosed on 04/12 * nebulizer treatments Levalbuterol due to tachycardia * inhalers PRN * patient refusing pulmonary consult * O2 by NC 2L, patient at her home dose * Mucolytics b.i.d. * Incentive spirometer while awake * added PEP therapy (4) Anxiety: Code(s): F41.9 - Anxiety disorder, unspecified Status: Acute Assessment and Plan: * Continued patient buspar * Added sertraline 25mg HS * Ativan PRN for breakthrough anxiety (5) Tobacco abuse: Code(s): Z72.0 - Tobacco use Status: Chronic Assessment and Plan: * Encourage smoking cessation * Nicotine patch * Removed at night Plan Code status: Full code per patient DVT prophylaxis: Lovenox Stress ulcer prophylaxis: NA PT/OT notes: PT ordered Disposition: Patient continues admission the medical unit for treatment of acute on chronic respiratory failure secondary to influenza and COPD exacerbation. Patient chronically wears 2 L supplemental oxygen will discharge home on this when medically stable patient requested PT due to dyspnea. Time Spent With Patient Time with patient: 15 - 25 minutes Subjective Date/time seen: 04/20/25 13:27 Interval history: Patient admitted for evaluation and treatment chronic respiratory failure with hypoxia wears 2 L home secondary to influenza a and COPD exacerbation. 04/20/2025: Assumed Care Patient stated mild improvement to her breathing and anxiety but still moderately short of breath with exertion even with ambulation to the bathroom. Patient denied CP but did report she is having a productive cough now. Review of Systems Review of Systems: All systems reviewed & are unremarkable except as noted in HPI and below Exam Narrative: Looks anxious, Const: General: no acute distress Other: Looks anxious, feeling short of breath HENMT: Face/Nose/Sinus: Normal nares present Mouth: Yes moist mucous membranes Eyes: General: appearance normal, both eyes and all related structures Sclera: sclerae normal Neck: Neck: supple Resp: Auscultation: diminished lung sounds Other: Bilateral decreased breath sounds, no wheezing heard, Tachypnea Cardio: Rate: regular rate and tachycardic Rhythm: regular rhythm GI: Auscultation: normal bowel sounds Skin: General skin exam: normal color and no rashes or lesions noted Neuro: Speech: normal speech Motor exam (neuro): 5/5 motor strength present throughout Sensory Exam: normal sensation Extrem: General: normal to inspection Other: No edema Psych: Mental Status: mental status grossly normal Affect: normal affect Objective Data Vital Signs Vital Signs: Vital Signs - 24 hr 04/19/25 14:00 04/19/25 14:44 04/19/25 14:53 Temperature 97.0 F L Pulse Rate 111 H 115 H 107 H Respiratory Rate 18 20 20 Blood Pressure 109/58 L Pulse Oximetry 93 Oxygen Delivery Oxygen Flow Rate Fraction of Inspired Oxygen 04/19/25 20:53 04/19/25 20:53 04/19/25 22:00 Temperature 98.6 F Pulse Rate 95 95 95 Respiratory Rate 20 20 18 Blood Pressure 141/64 H Pulse Oximetry 91 94 Oxygen Delivery Room Air Oxygen Flow Rate Fraction of Inspired Oxygen 21 04/20/25 01:28 04/20/25 01:28 04/20/25 01:40 Temperature Pulse Rate 85 85 86 Respiratory Rate 18 18 18 Blood Pressure Pulse Oximetry 96 Oxygen Delivery Nasal Cannula Oxygen Flow Rate 2 Fraction of Inspired Oxygen 04/20/25 06:00 04/20/25 08:00 Temperature 97.9 F Pulse Rate 90 Respiratory Rate 16 Blood Pressure 123/65 Pulse Oximetry 96 93 Oxygen Delivery Nasal Cannula Oxygen Flow Rate 2 Fraction of Inspired Oxygen Intake/Output Intake/Output: Intake & Output 04/17/25 04/18/25 04/19/25 04/20/25 23:59 23:59 23:59 23:59 Intake Total 1630 1098 640 Balance 1630 1098 640 Meds/Results Medications: Active Medications Generic Name Dose Route Start Last Admin Trade Name Freq PRN Reason Stop Dose Admin Acetaminophen 650 mg 04/18/25 00:29 04/18/25 20:43 Acetaminophen 325 Mg Tablet PO 650 mg Q4H PRN Administration Mild Pain (1-3) or Fever Alprazolam 0.5 mg 04/19/25 14:11 04/20/25 08:47 Alprazolam (*Crx) 0.5 Mg Tablet PO 0.5 mg TID PRN Administration Anxiety Aspirin 81 mg 04/18/25 08:00 04/20/25 08:43 Aspirin 81 Mg Chewable Tablet PO 81 mg DAILY@0800 EMILY Administration Buspirone HCl 10 mg 04/18/25 07:40 04/20/25 06:33 Buspirone Hcl 10 Mg Tablet PO 10 mg Q8HR EMILY Administration Calcium Carbonate 200 mg 04/19/25 15:26 04/19/25 15:30 Calcium Carbonate (Tums) 500 Mg (200 Mg Elemental) PO 200 mg Q6H PRN Administration Indigestion Diltiazem HCl 180 mg 04/18/25 09:00 04/20/25 08:42 Diltiazem Hcl Cd 180 Mg Cap.24hr PO 180 mg DAILY EMILY Administration Enoxaparin Sodium 40 mg 04/19/25 09:00 04/20/25 12:45 Enoxaparin 40 Mg/0.4 Ml Syringe SUB-Q Not Given DAILY [facility] Guaifenesin 1,200 mg 04/19/25 21:00 04/20/25 08:42 Guaifenesin 12 Hr 600 Mg Tabcr PO 1,200 mg Q12HR [facility] Administration Levalbuterol HCl 1.25 mg 04/18/25 07:37 Levalbuterol Neb 1.25 Mg/3 Ml INHALATION Q4HRT PRN Shortness Of Breath Or Wheezing Levalbuterol HCl 1.25 mg 04/19/25 14:00 04/20/25 09:17 Levalbuterol Neb 1.25 Mg/3 Ml INHALATION Not Given Q6HRT [facility] Levofloxacin 750 mg 04/19/25 09:00 04/19/25 08:57 Levofloxacin 750 Mg Tablet PO 04/21/25 09:01 750 mg Q48H [facility] Administration Nicotine 1 patch 04/18/25 09:00 04/20/25 08:43 Nicotine (*Pbkc) 21 Mg Patch TRANSDERM 1 patch DAILY EMILY Administration Ondansetron HCl 4 mg 04/18/25 00:29 Ondansetron Inj 4 Mg/2 Ml Vial IV PUSH Q4H PRN Nausea Oseltamivir Phosphate 30 mg 04/18/25 21:00 04/20/25 08:42 Oseltamivir Phosphate 30 Mg Capsule PO 04/20/25 21:01 30 mg Q12HR EMILY Administration Prednisone 40 mg 04/20/25 08:00 04/20/25 08:42 Prednisone 20 Mg Tablet PO 40 mg DAILY@0800 EMILY Administration Rosuvastatin Calcium 20 mg 04/18/25 18:00 04/19/25 17:22 Rosuvastatin 20 Mg Tablet PO 20 mg QPM EMILY Administration Sertraline HCl 25 mg 04/19/25 21:00 04/19/25 21:21 Sertraline Hcl 25 Mg Tablet PO 25 mg QHS [facility] Administration Umeclidinium [place] 1 puff 04/18/25 08:00 04/20/25 09:17 Umeclidinium [place] 62.5 Mcg Ellipta INHALATION Not Given DAILYRT [facility] Radiology Results: ITS Impressions Chest X-Ray 04/17/25 22:07 IMPRESSION: 1. Mild discoid atelectasis/scarring at the right middle lobe. No other acute cardiopulmonary disease. Labs Labs: Laboratory Results - last 24 hr 04/20/25 04:59 WBC 16.8 H RBC 3.95 L Hgb 11.7 L Hct 37.3 MCV 94.4 MCH 29.6 MCHC 31.4 L RDW 13.5 Plt Count 241 MPV 10.7 H Sodium 136 L Potassium 4.6 Chloride 101 Carbon Dioxide 30 Anion Gap 5 BUN 29 H Creatinine 1.15 H Estim Creat Clear Calc 47 Estimated GFR 48 L Glucose 144 H Calcium 9.2 Magnesium 2.6 H Total Bilirubin 0.3 AST 18 ALT 23 Alkaline Phosphatase 48 Total Protein 6.1 L Albumin 3.8 Quality VTE Prophylaxis VTE prophylaxis: pharmacologic ordered -Patient's previous records reviewed on admission -ER notes reviewed in detail on admission -discussed all findings and current treatment plan with patient/Family/POA -Consultations reviewed for recommendations -Patient's disposition for safe discharge discussed with porter sample case -radiology imaging, EKG and test results I have personally reviewed and interpreted unless otherwise specified Dictation performed by [employer] direct speech recognition software, therefore bird keeper variants and typographical errors may occur. Hospitalist MIPS Advance Care Plan I have confirmed that the patient's Advanced Care Plan is present, code status is documented, or surrogate decision maker is listed in patient medical record.: Yes Medication Reconciliation I have utilized all available resources to obtain, update and review the patients current medications (includes all prescriptions, OTC, herbals, cannabis, and nutritional supplements).: Yes The patient is not eligible for med reconciliation; the patient is in a emergent medical situation where delaying treatment would jeopardize the patients health.: No
[2025-04-20] MEDS: ROSUVASTATIN 20 MG TABLET PO (17:16)
[2025-04-20] MEDS: ACETAMINOPHEN 325 MG TABLET 650 MG PO (21:46)
[2025-04-20] MEDS: SERTRALINE HCL 25 MG TABLET PO (21:46)
[2025-04-21] VITALS (11 sets, daily range): BP systolic 105–130; BP diastolic 50–74; PULSE 75–92; RESP 16–22; TEMP 36.2–36.8; O2SAT 93–97
[2025-04-21 06:04] LABS: Hematocrit 37.2 % (37.0-47.0); Hemoglobin 11.7 g/dL (12.0-15.0); Mean Corpuscular HGB Conc 31.5 g/dl (32-36); Mean Corpuscular Hemoglobin 29.7 pg (26-34); Mean Corpuscular Volume 94.4 fl (80-100); Platelet Count Result 219 k/mm3 (150-375); Red Blood Count 3.94 M/mm3 (4.2-5.4); White Blood Count 8.4 K/mm3 (4.5-10.0)
[2025-04-21 06:32] LABS: Alanine Aminotransferase 20 U/L (6-35); Albumin Level 3.6 g/dL (3.5-5.1); Alkaline Phosphatase 43 U/L (38-126); Anion Gap 3 mmol/L (4-12); Aspartate Amino Transferase 15 U/L (14-36); Bilirubin,Total 0.2 mg/dL (0.2-1.3); Blood Urea Nitrogen 25 mg/dL (7-17); Calcium 9.1 mg/dL (8.4-10.2); Carbon Dioxide 30 mmol/L (22-30); Chloride 103 mmol/L (98-107); Estimated CRCL calculation 50 ml/min; Estimated Glomerular Filt Rate 52; Glucose 109 mg/dL (65-110); Magnesium 2.5 mg/dL (1.6-2.3); Potassium 4.6 mmol/L (3.4-5.0); Sodium 136 mmol/L (137-145); Total Protein 5.7 g/dL (6.3-8.2)
[2025-04-21] MEDS: dilTIAZem HCL CD 180 MG CAP.24HR PO (08:50)
[2025-04-21] MEDS: ENOXAPARIN 40 MG/0.4 ML SYRINGE SUB-Q (08:50)
[2025-04-21] MEDS: NICOTINE (*PBKC) 21 MG PATCH 1 PATCH TRANSDERM (08:50)
[2025-04-21] MEDS: ASPIRIN 81 MG CHEWABLE TABLET PO (08:50)
[2025-04-21] MEDS: UMECLIDINIUM BROMIDE 62.5 MCG ELLIPTA 1 PUFF INHALATION (08:51)
[2025-04-21] MEDS: guaiFENesin 12 HR 600 MG TABCR 1200 MG PO ×2 (08:51→20:07)
--- NOTE | 2025-04-21 13:46 | P.PNIM_ITS ---
Progress Note: A&P Assessment and Plan (1) Acute hypoxic on chronic hypercapnic respiratory failure: Code(s): J96.01 - Acute respiratory failure with hypoxia; J96.12 - Chronic respiratory failure with hypercapnia Status: Acute Assessment and Plan: Patient with chronic respiratory failure with hypoxia wears 2 L supplemental oxygen at home presented with worsening shortness of breath secondary to influenza a and COPD exacerbation. * Continue with supplemental oxygen 2 L may increase to maintain 92% (2) Influenza A: Code(s): J10.1 - Influenza due to other identified influenza virus with other respiratory manifestations Status: Acute Assessment and Plan: patient is still positive for influenza A * continue Tamiflu 30 mg x 5 more doses to complete 10 days of treatment * supportive care with acetaminophen and antiemetics (3) Acute exacerbation of chronic obstructive pulmonary disease: Code(s): J44.1 - Chronic obstructive pulmonary disease with (acute) exacerbation Status: Acute Assessment and Plan: patient was recently hospitalized and discharged home on 04/13, CXR No acute issues * Steroids PO 40mg daily * continue PO Levaquin for pneumonia diagnosed on 04/12 * nebulizer treatments Levalbuterol due to tachycardia * inhalers PRN * patient refusing pulmonary consult * O2 by [place] 2L, patient at her home dose * Mucolytics b.i.d. * Incentive spirometer while awake * added PEP therapy (4) Anxiety: Code(s): F41.9 - Anxiety disorder, unspecified Status: Acute Assessment and Plan: * Continued patient buspar * Added sertraline 25mg HS * Ativan PRN for breakthrough anxiety (5) Tobacco abuse: Code(s): Z72.0 - Tobacco use Status: Chronic Assessment and Plan: * Encourage smoking cessation * Nicotine patch * Removed at night Plan Code status: Full code per patient DVT prophylaxis: Lovenox Stress ulcer prophylaxis: NA PT/OT notes: PT ordered Disposition: Patient continues admission the medical unit for treatment of acute on chronic respiratory failure secondary to influenza and COPD exacerbation. Patient chronically wears 2 L supplemental oxygen will discharge home on this when medically stable patient requested PT due to dyspnea. Time Spent With Patient Time with patient: 15 - 25 minutes Subjective Date/time seen: 04/21/25 13:46 Interval history: Patient admitted for evaluation and treatment chronic respiratory failure with hypoxia wears 2 L home secondary to influenza a and COPD exacerbation. 04/21/2025: Assumed Care Patient reports overall improvement to symptoms but still having some difficulties ambulating due to her moderate SOB. Continues with productive cough. Review of Systems Review of Systems: All systems reviewed & are unremarkable except as noted in HPI and below Exam Narrative: Looks anxious, Const: General: no acute distress Other: Looks anxious, feeling short of breath HENMT: Face/Nose/Sinus: Normal nares present Mouth: Yes moist mucous membranes Eyes: General: appearance normal, both eyes and all related structures Sclera: sclerae normal Neck: Neck: supple Resp: Auscultation: diminished lung sounds Other: Bilateral decreased breath sounds, no wheezing heard, Tachypnea Cardio: Rate: regular rate and tachycardic Rhythm: regular rhythm GI: Auscultation: normal bowel sounds Skin: General skin exam: normal color and no rashes or lesions noted Neuro: Speech: normal speech Motor exam (neuro): 5/5 motor strength present throughout Sensory Exam: normal sensation Extrem: General: normal to inspection Other: No edema Psych: Mental Status: mental status grossly normal Affect: normal affect Objective Data Vital Signs Vital Signs: Vital Signs - 24 hr 04/20/25 13:48 04/20/25 13:53 04/20/25 14:00 Temperature 98.0 F Pulse Rate 87 83 84 Respiratory Rate 20 18 Blood Pressure 109/49 L Pulse Oximetry 93 94 Pulse Oximetry [With Activity During Therapy Session] Oxygen Delivery Nasal Cannula Oxygen Flow Rate 2 04/20/25 15:20 04/20/25 20:01 04/20/25 20:05 Temperature 97.6 F Pulse Rate 87 86 Respiratory Rate 18 20 Blood Pressure 140/61 Pulse Oximetry 95 Pulse Oximetry [With Activity During Therapy Session] 84 L Oxygen Delivery Room Air Oxygen Flow Rate 04/20/25 20:13 04/21/25 02:38 04/21/25 02:48 Temperature Pulse Rate 82 79 82 Respiratory Rate 18 18 18 Blood Pressure Pulse Oximetry Pulse Oximetry [With Activity During Therapy Session] Oxygen Delivery Oxygen Flow Rate 04/21/25 03:52 04/21/25 08:52 04/21/25 08:52 Temperature 97.2 F L Pulse Rate 80 80 Respiratory Rate 16 20 Blood Pressure 105/50 L Pulse Oximetry 97 93 Pulse Oximetry [With Activity During Therapy Session] Oxygen Delivery Room Air Oxygen Flow Rate 04/21/25 09:04 04/21/25 13:19 04/21/25 13:26 Temperature Pulse Rate 76 84 88 Respiratory Rate 20 20 20 Blood Pressure Pulse Oximetry Pulse Oximetry [With Activity During Therapy Session] Oxygen Delivery Oxygen Flow Rate Intake/Output Intake/Output: Intake & Output 04/18/25 04/19/25 04/20/25 04/21/25 23:59 23:59 23:59 23:59 Intake Total 1630 1098 1180 640 Balance 1630 1098 1180 640 Meds/Results Medications: Active Medications Generic Name Dose Route Start Last Admin Trade Name Freq PRN Reason Stop Dose Admin Acetaminophen 650 mg 04/18/25 00:29 04/20/25 21:46 Acetaminophen 325 Mg Tablet PO 650 mg Q4H PRN Administration Mild Pain (1-3) or Fever Alprazolam 0.5 mg 04/19/25 14:11 04/20/25 21:46 Alprazolam (*Crx) 0.5 Mg Tablet PO 0.5 mg TID PRN Administration Anxiety Aspirin 81 mg 04/18/25 08:00 04/21/25 08:50 Aspirin 81 Mg Chewable Tablet PO 81 mg DAILY@0800 EMILY Administration Buspirone HCl 10 mg 04/18/25 07:40 04/21/25 05:45 Buspirone Hcl 10 Mg Tablet PO 10 mg Q8HR EMILY Administration Calcium Carbonate 200 mg 04/19/25 15:26 04/19/25 15:30 Calcium Carbonate (Tums) 500 Mg (200 Mg Elemental) PO 200 mg Q6H PRN Administration Indigestion Diltiazem HCl 180 mg 04/18/25 09:00 04/21/25 08:50 Diltiazem Hcl Cd 180 Mg Cap.24hr PO 180 mg DAILY EMILY Administration Enoxaparin Sodium 40 mg 04/19/25 09:00 04/21/25 08:50 Enoxaparin 40 Mg/0.4 Ml Syringe SUB-Q 40 mg DAILY EMILY Administration Guaifenesin 1,200 mg 04/19/25 21:00 04/21/25 08:51 Guaifenesin 12 Hr 600 Mg Tabcr PO 1,200 mg Q12HR EMILY Administration Levalbuterol HCl 1.25 mg 04/18/25 07:37 Levalbuterol Neb 1.25 Mg/3 Ml INHALATION Q4HRT PRN Shortness Of Breath Or Wheezing Levalbuterol HCl 1.25 mg 04/19/25 14:00 04/21/25 13:19 Levalbuterol Neb 1.25 Mg/3 Ml INHALATION 1.25 mg Q6HRT EMILY Administration Nicotine 1 patch 04/18/25 09:00 04/21/25 08:50 Nicotine (*Pbkc) 21 Mg Patch TRANSDERM 1 patch DAILY EMILY Administration Ondansetron HCl 4 mg 04/18/25 00:29 Ondansetron Inj 4 Mg/2 Ml Vial IV PUSH Q4H PRN Nausea Prednisone 40 mg 04/20/25 08:00 04/21/25 08:51 Prednisone 20 Mg Tablet PO 40 mg DAILY@0800 EMILY Administration Rosuvastatin Calcium 20 mg 04/18/25 18:00 04/20/25 17:16 Rosuvastatin 20 Mg Tablet PO 20 mg QPM EMILY Administration Sertraline HCl 25 mg 04/19/25 21:00 04/20/25 21:46 Sertraline Hcl 25 Mg Tablet PO 25 mg QHS EMILY Administration Umeclidinium [place] 1 puff 04/18/25 08:00 04/21/25 08:51 Umeclidinium [place] 62.5 Mcg Ellipta INHALATION 1 puff DAILYRT EMILY Administration Radiology Results: ITS Impressions Chest X-Ray 04/17/25 22:07 IMPRESSION: 1. Mild discoid atelectasis/scarring at the right middle lobe. No other acute cardiopulmonary disease. Labs Labs: Laboratory Results - last 24 hr 04/21/25 05:13 WBC 8.4 RBC 3.94 L Hgb 11.7 L Hct 37.2 MCV 94.4 MCH 29.7 MCHC 31.5 L RDW 13.3 Plt Count 219 MPV 10.8 H Sodium 136 L Potassium 4.6 Chloride 103 Carbon Dioxide 30 Anion Gap 3 L BUN 25 H Creatinine 1.07 H Estim Creat Clear Calc 50 Estimated GFR 52 L Glucose 109 Calcium 9.1 Magnesium 2.5 H Total Bilirubin 0.2 AST 15 ALT 20 Alkaline Phosphatase 43 Total Protein 5.7 L Albumin 3.6 Quality VTE Prophylaxis VTE prophylaxis: pharmacologic ordered -Patient's previous records reviewed on admission -ER notes reviewed in detail on admission -discussed all findings and current treatment plan with patient/Family/POA -Consultations reviewed for recommendations -Patient's disposition for safe discharge discussed with hospice case manager -radiology imaging, EKG and test results I have personally reviewed and interpreted unless otherwise specified Dictation performed by [employer] direct speech recognition software, therefore medical transcriptionist variants and typographical errors may occur. Hospitalist MIPS Advance Care Plan I have confirmed that the patient's Advanced Care Plan is present, code status is documented, or surrogate decision maker is listed in patient medical record.: Yes Medication Reconciliation I have utilized all available resources to obtain, update and review the patients current medications (includes all prescriptions, OTC, herbals, cannabis, and nutritional supplements).: Yes The patient is not eligible for med reconciliation; the patient is in a emergent medical situation where delaying treatment would jeopardize the patients health.: No
[2025-04-21] MEDS: ROSUVASTATIN 20 MG TABLET PO (16:51)
[2025-04-21] MEDS: SERTRALINE HCL 25 MG TABLET PO (20:07)
[2025-04-21] MEDS: ALPRAZolam (*CRX) 0.5 MG TABLET PO (20:08)
[2025-04-22] VITALS (11 sets, daily range): BP systolic 118–133; BP diastolic 59–67; PULSE 74–98; RESP 16–20; TEMP 35.7–36.7; O2SAT 92–98
[2025-04-22 05:41] LABS: Hematocrit 39.3 % (37.0-47.0); Hemoglobin 12.3 g/dL (12.0-15.0); Mean Corpuscular HGB Conc 31.3 g/dl (32-36); Mean Corpuscular Hemoglobin 30.0 pg (26-34); Mean Corpuscular Volume 95.9 fl (80-100); Platelet Count Result 229 k/mm3 (150-375); Red Blood Count 4.10 M/mm3 (4.2-5.4); White Blood Count 8.5 K/mm3 (4.5-10.0)
[2025-04-22 06:10] LABS: Alanine Aminotransferase 19 U/L (6-35); Albumin Level 3.6 g/dL (3.5-5.1); Alkaline Phosphatase 47 U/L (38-126); Anion Gap 3 mmol/L (4-12); Aspartate Amino Transferase 17 U/L (14-36); Bilirubin,Total 0.4 mg/dL (0.2-1.3); Blood Urea Nitrogen 21 mg/dL (7-17); Calcium 9.1 mg/dL (8.4-10.2); Carbon Dioxide 32 mmol/L (22-30); Chloride 101 mmol/L (98-107); Estimated CRCL calculation 56 ml/min; Estimated Glomerular Filt Rate 60; Glucose 90 mg/dL (65-110); Magnesium 2.6 mg/dL (1.6-2.3); Potassium 4.3 mmol/L (3.4-5.0); Sodium 136 mmol/L (137-145); Total Protein 5.9 g/dL (6.3-8.2)
[2025-04-22] MEDS: UMECLIDINIUM BROMIDE 62.5 MCG ELLIPTA 1 PUFF INHALATION (07:30)
[2025-04-22] MEDS: NICOTINE (*PBKC) 21 MG PATCH 1 PATCH TRANSDERM (08:44)
[2025-04-22] MEDS: guaiFENesin 12 HR 600 MG TABCR 1200 MG PO ×2 (08:44→20:40)
[2025-04-22] MEDS: ASPIRIN 81 MG CHEWABLE TABLET PO (08:44)
[2025-04-22] MEDS: ENOXAPARIN 40 MG/0.4 ML SYRINGE SUB-Q (08:44)
[2025-04-22] MEDS: dilTIAZem HCL CD 180 MG CAP.24HR PO (08:44)
--- NOTE | 2025-04-22 14:36 | P.PNIM_ITS ---
Progress Note: A&P Assessment and Plan (1) Acute hypoxic on chronic hypercapnic respiratory failure: Code(s): J96.01 - Acute respiratory failure with hypoxia; J96.12 - Chronic respiratory failure with hypercapnia Status: Acute Assessment and Plan: Patient with chronic respiratory failure with hypoxia wears 2 L supplemental oxygen at home presented with worsening shortness of breath secondary to influenza a and COPD exacerbation. * Continue with supplemental oxygen 2 L may increase to maintain 92% (2) Influenza A: Code(s): J10.1 - Influenza due to other identified influenza virus with other respiratory manifestations Status: Acute Assessment and Plan: patient is still positive for influenza A * continue Tamiflu 30 mg x 5 more doses to complete 10 days of treatment * supportive care with acetaminophen and antiemetics (3) Acute exacerbation of chronic obstructive pulmonary disease: Code(s): J44.1 - Chronic obstructive pulmonary disease with (acute) exacerbation Status: Acute Assessment and Plan: patient was recently hospitalized and discharged home on 04/13, CXR No acute issues * Steroids PO 40mg daily * continue PO Levaquin for pneumonia diagnosed on 04/12 * nebulizer treatments Levalbuterol due to tachycardia * inhalers PRN * patient refusing pulmonary consult * O2 by NC 2L, patient at her home dose * Mucolytics b.i.d. * Incentive spirometer while awake * added PEP therapy (4) Anxiety: Code(s): F41.9 - Anxiety disorder, unspecified Status: Acute Assessment and Plan: * Continued patient buspar * Added sertraline 25mg HS * Ativan PRN for breakthrough anxiety (5) Tobacco abuse: Code(s): Z72.0 - Tobacco use Status: Chronic Assessment and Plan: * Encourage smoking cessation * Nicotine patch * Removed at night Plan Code status: Full code per patient DVT prophylaxis: Lovenox Stress ulcer prophylaxis: NA PT/OT notes: PT ordered Disposition: Patient continues admission the medical unit for treatment of acute on chronic respiratory failure secondary to influenza and COPD exacerbation. Patient chronically wears 2 L supplemental oxygen will discharge home on this when medically stable patient requested PT due to dyspnea. Subjective Date/time seen: 04/22/25 14:36 Interval history: Patient admitted for evaluation and treatment chronic respiratory failure with hypoxia wears 2 L home secondary to influenza a and COPD exacerbation. 04/22/2025: Patient improving today reports her SOB with ambulation is close to baseline and reports moderate cough and clearing secretions. Review of Systems Review of Systems: All systems reviewed & are unremarkable except as noted in HPI and below Exam Narrative: Looks anxious, Const: General: no acute distress Other: Looks anxious, feeling short of breath HENMT: Face/Nose/Sinus: Normal nares present Mouth: Yes moist mucous membranes Eyes: General: appearance normal, both eyes and all related structures Sclera: sclerae normal Neck: Neck: supple Resp: Auscultation: diminished lung sounds Other: Bilateral decreased breath sounds, no wheezing heard, Tachypnea Cardio: Rate: regular rate and tachycardic Rhythm: regular rhythm GI: Auscultation: normal bowel sounds Skin: General skin exam: normal color and no rashes or lesions noted Neuro: Speech: normal speech Motor exam (neuro): 5/5 motor strength present throughout Sensory Exam: normal sensation Extrem: General: normal to inspection Other: No edema Psych: Mental Status: mental status grossly normal Affect: normal affect Objective Data Vital Signs Vital Signs: Vital Signs - 24 hr 04/21/25 21:15 04/21/25 21:23 04/21/25 22:00 Temperature 98.2 F Pulse Rate 75 78 82 Respiratory Rate 17 17 20 Blood Pressure 129/74 Pulse Oximetry 95 Oxygen Delivery Oxygen Flow Rate 04/22/25 02:29 04/22/25 02:34 04/22/25 06:00 Temperature 97.9 F Pulse Rate 90 95 92 Respiratory Rate 17 17 16 Blood Pressure 118/59 L Pulse Oximetry 98 Oxygen Delivery Oxygen Flow Rate 04/22/25 07:30 04/22/25 07:30 04/22/25 07:43 Temperature Pulse Rate 78 74 Respiratory Rate 18 18 Blood Pressure Pulse Oximetry 92 Oxygen Delivery Nasal Cannula Oxygen Flow Rate 2 04/22/25 13:36 04/22/25 13:46 Temperature Pulse Rate 76 76 Respiratory Rate 18 18 Blood Pressure Pulse Oximetry Oxygen Delivery Oxygen Flow Rate Intake/Output Intake/Output: Intake & Output 04/19/25 04/20/25 04/21/25 04/22/25 23:59 23:59 23:59 23:59 Intake Total 1098 1180 1510 440 Balance 1098 1180 1510 440 Meds/Results Medications: Active Medications Generic Name Dose Route Start Last Admin Trade Name Freq PRN Reason Stop Dose Admin Acetaminophen 650 mg 04/18/25 00:29 04/20/25 21:46 Acetaminophen 325 Mg Tablet PO 650 mg Q4H PRN Administration Mild Pain (1-3) or Fever Alprazolam 0.5 mg 04/19/25 14:11 04/21/25 20:08 Alprazolam (*Crx) 0.5 Mg Tablet PO 0.5 mg TID PRN Administration Anxiety Aspirin 81 mg 04/18/25 08:00 04/22/25 08:44 Aspirin 81 Mg Chewable Tablet PO 81 mg DAILY@0800 EMILY Administration Buspirone HCl 10 mg 04/18/25 07:40 04/22/25 14:20 Buspirone Hcl 10 Mg Tablet PO 10 mg Q8HR EMILY Administration Calcium Carbonate 200 mg 04/19/25 15:26 04/19/25 15:30 Calcium Carbonate (Tums) 500 Mg (200 Mg Elemental) PO 200 mg Q6H PRN Administration Indigestion Diltiazem HCl 180 mg 04/18/25 09:00 04/22/25 08:44 Diltiazem Hcl Cd 180 Mg Cap.24hr PO 180 mg DAILY EMILY Administration Enoxaparin Sodium 40 mg 04/19/25 09:00 04/22/25 08:44 Enoxaparin 40 Mg/0.4 Ml Syringe SUB-Q 40 mg DAILY EMILY Administration Guaifenesin 1,200 mg 04/19/25 21:00 04/22/25 08:44 Guaifenesin 12 Hr 600 Mg Tabcr PO 1,200 mg Q12HR EMILY Administration Levalbuterol HCl 1.25 mg 04/18/25 07:37 Levalbuterol Neb 1.25 Mg/3 Ml INHALATION Q4HRT PRN Shortness Of Breath Or Wheezing Levalbuterol HCl 1.25 mg 04/19/25 14:00 04/22/25 13:36 Levalbuterol Neb 1.25 Mg/3 Ml INHALATION 1.25 mg Q6HRT EMILY Administration Nicotine 1 patch 04/18/25 09:00 04/22/25 08:44 Nicotine (*Pbkc) 21 Mg Patch TRANSDERM 1 patch DAILY EMILY Administration Ondansetron HCl 4 mg 04/18/25 00:29 Ondansetron Inj 4 Mg/2 Ml Vial IV PUSH Q4H PRN Nausea Prednisone 40 mg 04/20/25 08:00 04/22/25 08:44 Prednisone 20 Mg Tablet PO 40 mg DAILY@0800 EMILY Administration Rosuvastatin Calcium 20 mg 04/18/25 18:00 04/21/25 16:51 Rosuvastatin 20 Mg Tablet PO 20 mg QPM EMILY Administration Sertraline HCl 25 mg 04/19/25 21:00 04/21/25 20:07 Sertraline Hcl 25 Mg Tablet PO 25 mg QHS EMILY Administration Umeclidinium Barco 1 puff 10/07/25 08:00 04/22/25 07:30 Umeclidinium Barco 62.5 Mcg Ellipta INHALATION 1 puff DAILYRT EMILY Administration Radiology Results: ITS Impressions Chest X-Ray 04/17/25 22:07 IMPRESSION: 1. Mild discoid atelectasis/scarring at the right middle lobe. No other acute cardiopulmonary disease. Labs Labs: Laboratory Results - last 24 hr 04/22/25 05:15 WBC 8.5 RBC 4.10 L Hgb 12.3 Hct 39.3 MCV 95.9 MCH 30.0 MCHC 31.3 L RDW 13.3 Plt Count 229 MPV 10.3 Sodium 136 L Potassium 4.3 Chloride 101 Carbon Dioxide 32 H Anion Gap 3 L BUN 21 H Creatinine 0.94 Estim Creat Clear Calc 56 Estimated GFR 60 Glucose 90 Calcium 9.1 Magnesium 2.6 H Total Bilirubin 0.4 AST 17 ALT 19 Alkaline Phosphatase 47 Total Protein 5.9 L Albumin 3.6 Quality VTE Prophylaxis VTE prophylaxis: pharmacologic ordered -Patient's previous records reviewed on admission -ER notes reviewed in detail on admission -discussed all findings and current treatment plan with patient/Family/POA -Consultations reviewed for recommendations -Patient's disposition for safe discharge discussed with bilingual case manager -radiology imaging, EKG and test results I have personally reviewed and interpreted unless otherwise specified Dictation performed by [employer] direct speech recognition software, therefore side boss variants and typographical errors may occur. Hospitalist MIPS Advance Care Plan I have confirmed that the patient's Advanced Care Plan is present, code status is documented, or surrogate decision maker is listed in patient medical record.: Yes Medication Reconciliation I have utilized all available resources to obtain, update and review the patients current medications (includes all prescriptions, OTC, herbals, cannabis, and nutritional supplements).: Yes The patient is not eligible for med reconciliation; the patient is in a emergent medical situation where delaying treatment would jeopardize the patients healt h.: No
[2025-04-22] MEDS: ROSUVASTATIN 20 MG TABLET PO (17:12)
[2025-04-22] MEDS: SERTRALINE HCL 25 MG TABLET PO (20:40)
[2025-04-22] MEDS: ALPRAZolam (*CRX) 0.5 MG TABLET PO (20:40)
[2025-04-23 02:23] VITALS: PULSE 83; RESP 18
[2025-04-23 02:29] VITALS: PULSE 81; RESP 18
[2025-04-23 06:00] VITALS: BP 114/56; PULSE 76; RESP 18; TEMP 36.5; O2SAT 97
[2025-04-23 06:19] LABS: Hematocrit 41.1 % (37.0-47.0); Hemoglobin 13.0 g/dL (12.0-15.0); Mean Corpuscular HGB Conc 31.6 g/dl (32-36); Mean Corpuscular Hemoglobin 30.0 pg (26-34); Mean Corpuscular Volume 94.9 fl (80-100); Platelet Count Result 234 k/mm3 (150-375); Red Blood Count 4.33 M/mm3 (4.2-5.4); White Blood Count 8.1 K/mm3 (4.5-10.0)
[2025-04-23 06:36] LABS: Alanine Aminotransferase 21 U/L (6-35); Albumin Level 3.7 g/dL (3.5-5.1); Alkaline Phosphatase 49 U/L (38-126); Anion Gap 8 mmol/L (4-12); Aspartate Amino Transferase 17 U/L (14-36); Bilirubin,Total 0.5 mg/dL (0.2-1.3); Blood Urea Nitrogen 23 mg/dL (7-17); Calcium 9.0 mg/dL (8.4-10.2); Carbon Dioxide 29 mmol/L (22-30); Chloride 99 mmol/L (98-107); Estimated CRCL calculation 59 ml/min; Estimated Glomerular Filt Rate > 60; Glucose 86 mg/dL (65-110); Magnesium 2.6 mg/dL (1.6-2.3); Sodium 136 mmol/L (137-145); Total Protein 6.0 g/dL (6.3-8.2)
[2025-04-23 06:44] LABS: Potassium 4.1 mmol/L (3.4-5.0)
[2025-04-23] MEDS: UMECLIDINIUM BROMIDE 62.5 MCG ELLIPTA 1 PUFF INHALATION (07:23)
[2025-04-23 07:24] VITALS: PULSE 66; RESP 18; O2SAT 95
[2025-04-23 07:33] VITALS: PULSE 68; RESP 18
[2025-04-23] MEDS: ASPIRIN 81 MG CHEWABLE TABLET PO (08:34)
[2025-04-23] MEDS: guaiFENesin 12 HR 600 MG TABCR 1200 MG PO (08:34)
[2025-04-23] MEDS: NICOTINE (*PBKC) 21 MG PATCH 1 PATCH TRANSDERM (08:34)
[2025-04-23] MEDS: ENOXAPARIN 40 MG/0.4 ML SYRINGE SUB-Q (08:34)
[2025-04-23] MEDS: dilTIAZem HCL CD 180 MG CAP.24HR PO (08:34)
--- NOTE | 2025-04-23 12:02 | P.DS_ITS ---
DS: Admitting Diagnosis Discharge Date 04/23/2025 Admitting Diagnosis Chronic respiratory failure with hypoxia/COPD exacerbation/Influenza/anxiety DS: Discharge Diagnosis Discharge Diagnosis (1) Acute hypoxic on chronic hypercapnic respiratory failure: Code(s): J96.01 - Acute respiratory failure with hypoxia; J96.12 - Chronic respiratory failure with hypercapnia Status: Acute (2) Influenza A: Code(s): J10.1 - Influenza due to other identified influenza virus with other respiratory manifestations Status: Acute (3) Acute exacerbation of chronic obstructive pulmonary disease: Code(s): J44.1 - Chronic obstructive pulmonary disease with (acute) exacerbation Status: Acute (4) Anxiety: Code(s): F41.9 - Anxiety disorder, unspecified Status: Acute (5) Tobacco abuse: Code(s): Z72.0 - Tobacco use Status: Chronic DS: Summary Hospital Course Reason for hospitalization: Chronic respiratory failure with hypoxia/COPD exacerbation/Influenza/anxiety Hospital Course: Admission: Patient was a 64 year old female with PMH of COPD, anxiety, CAD and tobacco abuse. Patient presented to the ER with complaints of shortness of breath. [facility] after being admitted for a COPD exacerbation and testing positive for influenza. Patient was diagnosed with a RLL pneumonia just before discharge and was discharged on PO Levaquin. Patient was also discharged on Tamiflu. Patient reports that she had increased work of breathing and palpitations which caused her to come to the ER. In the ER the patients CXR showed mild discoid atelectasis/scarring at the right middle lobe. No other acute cardiopulmonary disease. Patient was given nebulizer treatments and IV steroids. Patient was admitted for further evaluation and treatment. Hospital Course: Patient admitted to the medical unit and treated for COPD exacerbation, influenza, and moderate anxiety. Patient complete her oral ABX she had been discharged on and transitioned to oral prednisone 40mg daily x 5 days. I continued DuoNebs added mucinex and PEP therapy. Due to patient moderate anxiety which was a contributing facture to dyspnea worse with exertion causing her to be unable to perform her ADLS. I started patient on Zoloft 25mg daily for therapeutic control and added Xanax 0.5 PRN for moderate to severe anxiety attacks. Patient with overall improvement with treatment remained on her 2 L supplemental oxygen and on day of discharge was able to ambulate and perform her ADLS with minimal SOB reported back to her baseline. She had completed her Tamiflu while hospitalized and labs unremarkable and vitals stable at time of discharge. Patient was advised on smoking cessation and recommended immunizations for PNA/influenza and to avoid allergens that could exacerbate her COPD. Patient was discharged to home advised to follow-up with her primary and pulmonology outpatient. Status at Discharge Functional status at discharge: independent ambulation Overall status at discharge: patient is back to baseline Time Spent with Patient Time attestation: Total time spent providing and/or coordinating discharge services: Time spent: Greater than 30 minutes Exam Const: General: no acute distress Other: Looks anxious, feeling short of breath HENMT: Face/Nose/Sinus: Normal nares present Mouth: Yes moist mucous membranes Eyes: General: appearance normal, both eyes and all related structures Sclera: sclerae normal Neck: Neck: supple Resp: Auscultation: diminished lung sounds Other: Bilateral decreased breath sounds, no wheezing heard, Tachypnea Cardio: Rate: regular rate and tachycardic Rhythm: regular rhythm GI: Auscultation: normal bowel sounds Skin: General skin exam: normal color and no rashes or lesions noted Neuro: Speech: normal speech Motor exam (neuro): 5/5 motor strength present throughout Sensory Exam: normal sensation Extrem: General: normal to inspection Other: No edema Psych: Mental Status: mental status grossly normal Affect: normal affect DS: Data Data Completed and Pending Labs on day of discharge: Labs from last 24 hours 04/23/25 05:37 WBC 8.1 RBC 4.33 Hgb 13.0 Hct 41.1 MCV 94.9 MCH 30.0 MCHC 31.6 L RDW 13.2 Plt Count 234 MPV 11.0 H Sodium 136 L Potassium 4.1 Chloride 99 Carbon Dioxide 29 Anion Gap 8 BUN 23 H Creatinine 0.89 Estim Creat Clear Calc 59 Estimated GFR > 60 Glucose 86 Calcium 9.0 Magnesium 2.6 H Total Bilirubin 0.5 AST 17 ALT 21 Alkaline Phosphatase 49 Total Protein 6.0 L Albumin 3.7 Imaging Radiologist's impression: Radiology Results: ITS Impressions Chest X-Ray 04/17/25 22:07 IMPRESSION: 1. Mild discoid atelectasis/scarring at the right middle lobe. No other acute cardiopulmonary disease. Discharge Plan Discharge Attending physician on discharge: Laura Fallon Consulting providers: Felisa Roach Discharging Clinician: Felisa Roach Anticipated Discharge Date/Time: 04/23/25 09:46 Patient Disposition: Home Activity: may shower and as tolerated Diet: heart healthy Discharge Instructions: 1). COPD * Continue with supplemental oxygen * continue with Mucinex to help with secretions * I have prescribed 40mg prednisone x 1 dose to complete therapy * Continue Nebulizer treatments as need * Encourage smoking cessation * Follow-up with Pulmonology as scheduled How can you care for yourself at home? ? Keep track of any new symptoms or changes in your symptoms. ? Rest until you feel better. ? Be safe with medicines. Take your medicines exactly as prescribed. Call your doctor if you think you are having a problem with your medicine. ? Do not drive after taking a prescription pain medicine. ? Ensure to follow-up with primary care physician as indicated and provide updated medication list provided to you at discharge. When should you call for help? Call 911 anytime you think you may need emergency care. For example, call if: ? You passed out (lost consciousness). Call your doctor now or seek immediate medical care if: ? You have new symptoms like fever, difficulty breathing, Chest pain, vomiting, or rash. ? You have new or different pain. ? You are confused and are having trouble thinking clearly. ? Your symptoms are getting worse. Watch closely for changes in your health, and be sure to contact your doctor if: ? You do not get better as expected. Patient Instructions: Antibiotic Form, How to Stop Smoking (ED), COPD (Chronic Obstructive Pulmonary Disease) (DC), Chronic Lung Disease and Infection Prevention (DC), Energy Conservation Techniques (DC), Dyspnea Scale and Exercise (DC), Nutrition Guidelines for People with COPD (DC) Patient Language: Upper Sorbian Stand Alone Forms: General Discharge Information Follow-up/Referrals: José Miguel,MD [facility] [Primary Care Provider] - 3 Weeks Discharge Medications: New prednisone 20 mg Tablet 40 mg PO DAILY@0800 Qty: 2 0RF alprazolam 0.5 mg Tablet 0.5 mg PO BID PRN (Reason: Anxiety) Qty: 10 0RF sertraline [Zoloft] 50 mg Tablet 25 mg PO QHS Qty: 30 0RF guaifenesin [Mucus Relief ER] 600 mg Tablet Extended Release 12hr 1,200 mg PO Q12HR Qty: 20 0RF Continued Incruse Ellipta 62.5 mcg/actuation blister with device 1 inh INHALATION DAILY nicotine [Nicoderm CQ] 21 mg/24 hr Patch 24 Hour 1 patch transdermal DAILY Qty: 14 0RF aspirin [Children's Aspirin] 81 mg Tablet,Chewable 81 mg PO DAILY@0800 Qty: 30 0RF rosuvastatin 20 mg Tablet 20 mg PO EVENING Qty: 30 0RF levalbuterol HCl 1.25 mg/3 mL solution for nebulization 1.25 mg inhalation Q4H PRN (Reason: shortness of breath or wheezing) Qty: 72 0RF buspirone 10 mg Tablet 10 mg PO Q8H Qty: 90 0RF diltiazem HCl [Cartia XT] 180 mg capsule,extended release 24hr 180 mg PO DAILY Qty: 30 0RF fluticasone propion-salmeterol 115-21 mcg/actuation HFA aerosol inhaler 2 puff INHALATION Q12H albuterol sulfate 90 mcg/actuation HFA aerosol inhaler 1 inh INHALATION QID PRN (Reason: shortness of breath or wheezing) Discontinued levofloxacin 750 mg tablet 750 mg PO .q48 8 Days Qty: 4 0RF Patient Comments: last dose on april 20 oseltamivir [Tamiflu] 30 mg Capsule 30 mg PO Q12HR 6 Days Qty: 12 0RF Patient Comments: last dose april 20 Date of admission: 04/21/25 14:50 Primary Care Provider: [facility] Admitting Provider: Nida Flanagan Attending physician on admission: Nida Flanagan Condition: Stable Quality VTE Prophylaxis VTE prophylaxis: pharmacologic ordered -Patient's previous records reviewed on admission -ER notes reviewed in detail on admission -discussed all findings and current treatment plan with patient/Family/POA -Consultations reviewed for recommendations -Patient's disposition for safe discharge discussed with clinical case manager -radiology imaging, EKG and test results I have personally reviewed and interpreted unless otherwise specified Dictation performed by [employer] direct speech recognition software, therefore pier hand variants and typographical errors may occur. Hospitalist MIPS Heart Failure (Exclusion) Patient has history of Heart Transplant or Left Ventricular Assistive Device?: No IF YES, STOP HERE Heart Failure (Qualifier) Patient has current or prior documentation of LVEF less than or equal to 40%, or mod/servere depressed LVSF?: No IF NO, STOP HERE
== END 2025-04-23 12:25 | disposition home or self-care (01) | DRG 190 ==
LOC: ANHED 22:40 → ANH3MEDSUR 04-18 01:30
PROVIDERS: Nurse Practitioner Adult Health; Admitting Provider General Practice; Emergency Provider Emergency Medicine; PCP Internal Medicine; Visit Provider Nurse Practitioner Family
DX: J44.1 Chronic obstructive pulmonary disease with (acute) exacerbation (principal); J10.00 Influenza due to other identified influenza virus with unspecified type of pneumonia; J96.01 Acute respiratory failure with hypoxia; J96.12 Chronic respiratory failure with hypercapnia; J44.0 Chronic obstructive pulmonary disease with (acute) lower respiratory infection; I25.10 Atherosclerotic heart disease of native coronary artery without angina pectoris; D72.829 Elevated white blood cell count, unspecified; R00.0 Tachycardia, unspecified; F41.9 Anxiety disorder, unspecified; F10.21 Alcohol dependence, in remission; F17.210 Nicotine dependence, cigarettes, uncomplicated; Z20.822 Contact with and (suspected) exposure to COVID-19; Z99.81 Dependence on supplemental oxygen; Z90.49 Acquired absence of other specified parts of digestive tract; Z79.51 Long term (current) use of inhaled steroids; Z79.82 Long term (current) use of aspirin; Z79.2 Long term (current) use of antibiotics
CPT/HCPCS: 36415; 71046; 80053; 82948; 83605; 83735; 83880; 84484; 85025; 85027; 87637; 93005; 94640; 96372; 96374; 96376; 97161; 99285; A9270; G0378; J1650; J2919; J7512